=== PATIENT | male | born 1960 | race African-American/Black ===

== ENCOUNTER 2016-07-08 11:53 | Inpatient (IN) | payer OTHER ==
[~2016-07-08] VITALS: Ht 177.8 cm; Wt 89.9 kg
[~2016-07-08 11:53] MED LIST: ACET325T21 PO; ALLO100T PO; ALLO300T PO; AMIO200T2 PO; AMLO5TAB2 PO; ATOR10TA60 PO; CALC-304 PO; CALC200T23 PO; CALC667C6 PO; CALC667T PO; CARV12.52 PO; CEFT400V IV; DARB40DI SQ; DARB60DI SQ; DEXT38GE2 PO; FOLI1TAB16 PO; FURO20TA3 PO; FURO40TA4 PO; GLUC1KIT IM; HYDR-2869 PO; INSU100I13 SQ; INSU100I17 SQ; INSU100V13 SQ; IPRA4AER IH; ISOS40TA11 PO; LACT1CAP24 PO; LACT20SO PO; LEVO25TA4 PO; LISI-338 PO; LOPE2TAB27 PO; MULT-246 PO; OXYC-323 PO; OXYC15TA60 PO; OXYC5CAP3 PO; OXYM30SP NS; PANT40TA3 PO; PHYT5TAB PO; POTA10TA31 PO; SACC250C PO; SIMV10TA3 PO; SODI650T PO; SPIR50TA2 PO; TAMS0.4C2 PO; Vancomycin Hcl PO
--- NOTE | 2016-07-08 12:22 | ACF ---
Admission Forms Criteria GASTROENTEROLOGY GRG Clinical Indications for Admission to Inpatient Care (Place 'X' for any and all applicable criteria): Hospital admission is needed for appropriate care of the patient because of ANY ONE of the following: [ ]I. Hemoperitoneum(7) [X]II. Ascites requiring acute treatment indicated by ANY ONE of the following( 8)(9): [X]a) Hemodynamic instability remaining after emergency or observation level care (as appropriate) [ ]b) Peritoneal signs present (eg, abdominal rigidity, rebound tenderness, absent bowel sounds) [ ]c) Tachypnea, Hypoxemia, or other respiratory symptoms remain after emergency or observation level care (as appropriate) [ ]d) Suspected infected ascites as indicated by ANY ONE of the following: [ ]i) Temperature greater than 100 degrees F (37.8 degrees C) [ ]ii) Abdominal pain or tenderness not relieved by paracentesis [ ]iii) Systemic signs of infection (eg, elevated WBC count, fever) [ ]iv) Ascitic fluid analysis consistent with infection ( eg, elevated WBC count): [ ]v) Vital sign abnormality [ ]III. Suspected acute intra-abdominal process indicated by ANY ONE of the following(1)(2)(3)(4)(5): [ ]a) Hemodynamic instability [ ]b) Peritoneal signs present (eg, abdominal rigidity, rebound tenderness, absent bowel sounds) [ ]c) Bowel obstruction suspected (eg, severe vomiting, abdominal distension) [ ]d) Suspected mesenteric ischemia or ischemic colitis(6) [ ]e) Other signs or symptoms of acute abdominal disease (eg, severe pain, free air): [ ]IV. Severe liver disease indicated by ANY ONE of the following(8)(9)(10)(11)( 12)(13)(14): [ ]a) Acute hepatitis (eg, transaminase level greater than 1000 IU/L) [ ]b) Acute elevation of prothrombin time to more than 50% above normal or INR greater than 1.5 [ ]c) Bilirubin greater than 20 mg/dL (342 micromoles/L) (15) [ ]d) New-onset or worsening hepatic encephalopathy [ ]e) Acute liver necrosis [ ]f) Vomiting or dehydration that is severe of persistent [ ]g) Hemodynamic instability due to liver disease [ ]h) Acute renal failure [ ]i) Hepatic abscess [ ]j) Dehydration that is severe or persistent [ ]k) Hepatic hydrothorax(21) [ ]l) Other indications of severe liver disease (eg, persistent fever , ingestion of hepatotoxin) [ ]V. Severe diarrhea indicated by ANY ONE of the following(17)(18)(19)(20)(21)( 22)(23): [ ]a) High fever or other high-risk infection situation [ ]b) Intractable bloody diarrhea (eg, more than 6 bloody stools per day) [ ]c) Suspected Clostridium difficile-associated diarrhea(24) [ ]d) Change in mental status that persists after emergency or observation level care (as appropriate) [ ]e) Severe dehydration (eg, greater than 9% loss of body weight in children) [ ]f) Inability to maintain hydration [ ]g) Peritoneal signs present (eg, abdominal rigidity, rebound tenderness, absent bowel sounds) [ ]h) Abdominal ischemia suspected(6) [ ]i) Hemodynamic instability that persists after emergency or observation level care (as appropriate) [ ]j) Severe electrolyte abnormalities requiring inpatient care [ ]k) Acute renal failure [ ]. Suspected toxic megacolon(5)(6) [ ]VII.Severe dysphagia indicated by ANY ONE of the following(25)(26): [ ]a) Suspected esophageal perforation or fistula(27) [ ]b) Suspected cause that requires inpatient care (eg, caustic ingestion, severe esophagitis) (28) [ ]c) Severe dehydration (eg, greater than 9% loss of body weight in children) [ ]d) Inability to manage secretions or maintain hydration [ ]e) Hemodynamic instability that persists after emergency or observation level care (as appropriate) [ ]f) Severe electrolyte abnormalities requiring inpatient care [ ]g) Acute renal failure [ ]VIII.Vomiting and ANY ONE of the following (29)(30)(31)(32): [ ]a) High fever or other high-risk infection situation [ ]b) Change in mental status that persists after emergency or observation level care (as appropriate) [ ]c) Severe dehydration (e.g., greater than 9% loss of body weight in children) [ ]d) Peritoneal signs present (e.g., abdominal rigidity, rebound tenderness, absent bowel sounds) [ ]e) Hemodynamic instability that persists after emergency or observation level care (as appropriate) [ ]f) Severe electrolyte abnormalities requiring inpatient care [ ]g) Acute renal failure [ ]h) Bowel obstruction suspected (e.g., severe vomiting, abdominal distension) [ ]i) Vomiting that is severe or persistent after medical treatment [ ]IX. Significant dehydration indicated by ANY ONE of the following(23)(24)(25) [ ]a) Clinical findings of severe dehydration indicated by ANY ONE of the following: [ ]i) Acute loss of weight from baseline (5% of body weight in adults, 9% in pediatric patients) [ ]ii) Hemodynamic instability [ ]iii) Acute renal failure [ ]iv) Serum sodium greater than 150 mEq/L (mmol/L) [ ]b) Dehydration that is persistent indicated by ALL of the following: [ ]i) Oral rehydration therapy not tolerated or insufficient to adequately correct dehydration [ ]ii) Appropriate intravenous treatment (eg, fluids) does not readily correct dehydration hours of (ie, after 12 to 24 of treatment) [ ]X. Gastroparesis and ANY ONE of the following(37)(38)(39): [ ]a) Dehydration that is severe or persistent [ ]b) Severe electrolyte abnormalities requiring inpatient care [ ]c) Acute renal failure [ ]d) Vomiting that is severe or persistent [ ]XI. Complications of transplanted liver indicated by ANY ONE of the following (40)(41): [ ]a) Acute graft rejection requiring inpatient management (eg, intravenous immunosuppression)(42) [ ]b) Failure of transplanted liver as indicated by ANY ONE of the following: [ ]i) Acute hepatitis (eg, transaminase level greater than 1000 International Units per liter (IU/L)) [ ]ii) Acute elevation of prothrombin time to more than 50% above baseline or INR greater than 1.5 [ ]iii) Bilirubin greater than 20 mg/dL (342 micromoles/L) [ ]iv) New-onset or worsening hepatic encephalopathy [ ]v) Acute elevation of serum ammonia level (eg, greater than 210 mcg/dL (150 micromoles/L)) [ ]vi) Acute liver necrosis [ ]c) Infection requiring inpatient management (eg, Hemodynamic instability, need for intravenous antimicrobial treatment)(43)(44)(45)(46)(47)(48)(49)(50) [ ]d) Other complication of transplanted liver (eg, thrombosis, autoimmune hepatitis, variceal bleeding) requiring inpatient management(51)(52) [ ]XII Complications of transplanted pancreas indicated by ANY ONE of the following(53): [ ]a) Acute graft rejection requiring inpatient management (eg, intravenous immunosuppression)(42)(54) [ ]b) Failure of transplanted pancreas as indicated by ANY ONE of the following: [ ]i) Serum amylase greater than 3 times the upper limit of normal or baseline [ ]ii) Serum lipase greater than 3 times the upper limit of normal or baseline [ ]iii) Imaging findings consistent with pancreatic inflammation or necrosis [ ]c) Infection requiring inpatient management (eg, Hemodynamic instability, need for intravenous antimicrobial treatment)(43)(44)(45)(46)(47)(48)(49)(50) [ ]d) Other complication of transplanted liver (eg, thrombosis, autoimmune hepatitis, variceal bleeding) requiring inpatient management(51)(52) [ ]X. Gastroenterology condition and ALL of the following: [ ]a) Symptom or finding for which emergency and observation care have failed or are not considered appropriate (Also use General Criteria: Observation Care as appropriate) [ ]b) Presence of ANY ONE of the following: [ ]i) A General Admission Criteria [ ]ii) A Pediatric General Admission Criteria. The original [facility] [employer] content created by [facility] has been revised. The portions of the content which have been revised are identified through the use of italic text or in bold,and [facility] has neither reviewed nor approved the modified material. All other unmodified content is copyright [facility]. Please see references footnoted in the original [facility] edition 2016 Admission Criteria Met?: Yes BRANDON HUBBARD Jul 08, 2016 12:22
[2016-07-08 12:50] LABS: BASO % 1 % (0-3); EOS % 1 % (0-3); HEMATOCRIT 29.8 % (39.0-53.0); HEMOGLOBIN 9.4 g/dL (13.0-17.5); LYMPH # 1.1 x10^3/uL (1.0-4.8); LYMPH % 21 % (24-48); MEAN CORPUSCULAR HEMOGLOBIN 28 pg (25-35); MEAN CORPUSCULAR HGB CONC 32 g/dL (31-37); MEAN CORPUSCULAR VOLUME 89 fL (79-100); MONO % 12 % (0-9); NEUT % 65 % (31-73); PLATELET COUNT 139 x10^3/uL (140-400); RED BLOOD COUNT 3.35 x10^6/uL (4.30-5.70); RED CELL DISTRIBUTION WIDTH 17.3 % (11.5-14.5)
[2016-07-08] MEDS ORDERED: ONDANSETRON PF 4 MG/2 ML VIAL. IV PRN (13:00)
[2016-07-08 13:01] LABS: ALBUMIN 1.6 g/dL (3.4-5.0); ALBUMIN/GLOBULIN RATIO 0.4 (1.0-1.7); CALCIUM 7.7 mg/dL (8.5-10.1); CREATININE 5.9 mg/dL (0.7-1.3); TOTAL BILIRUBIN 0.4 mg/dL (0.2-1.0)
[2016-07-08 13:03] LABS: INR 1.3 (0.8-1.1); PROTHROMBIN TIME PATIENT 15.8 SEC (11.7-14.0)
[2016-07-08 13:04] LABS: POTASSIUM 2.8 mmol/L (3.5-5.1)
[2016-07-08] MEDS ORDERED: POTASSIUM CHLORIDE 20 MEQ TABLET.ER. PO ONE ×2 (13:15→16:15)
[2016-07-08] MEDS ORDERED: IV NORMAL SALINE 500ML BAG 500 ML IV ONE (13:30)
--- NOTE | 2016-07-08 16:10 | PDOC1 ---
History and Physical Date of Admission Date of Admission DATE: 07/08/16 TIME: 16:01 Identification/Chief Complaint Chief Complaint short of breath Source Source: Chart review, Patient History of Present Illness History of Present Illness return from [facility], worsening abd distention and shortness of breath. Mental status seems more clear than before. He is very cold, no other complaint, new dyspnea Past Medical History Cardiovascular: CHF, HTN, Hyperlipidemia, Other Pulmonary: No pertinent hx CENTRAL NERVOUS SYSTEM: Dementia GI: Other Heme/Onc: Anemia NOS Hepatobiliary: Cirrhosis, Hep A/B/C, Other Psych: Addictions Musculoskeletal: Osteoarthritis Rheumatologic: Gout ENT: No pertinent hx Renal/: Chronic renal failure Endocrine: Diabetes, Hyperparathyroidism Past Surgical History Past Surgical History: Other Family History Family History: No Significant, Family History Unknown Social History Smoke: No ALCOHOL: none Drugs: Cocaine Current Medications Current Medications Current Medications Ondansetron HCl (Zofran) 4 mg PRN Q8HRS PRN IV NAUSEA/VOMITING Last administered on 07/08/16 13:44; Start 07/08/16 at 13:00; Stop 07/09/16 at 12:59 Potassium Chloride 40 meq 40 meq 1X ONCE PO Last administered on 07/08/16 13: 45; Start 07/08/16 at 13:15; Stop 07/08/16 at 13:16; Status DC Sodium Chloride (Iv Sodium Chloride 0.9% 500ml Bag) 500 ml @ 0 mls/hr 1X ONCE IV ; Start 07/08/16 at 13:30; Stop 07/08/16 at 13:31; Status DC Active Scripts Active [Vancomycin Hcl] 125 MG/2.5 ML Solution 125 Mg PO [id number] 14 Days Reported Furosemide 40 Mg Tablet 40 Mg PO DAILY Aranesp Syringe (Darbepoetin Aaron In Polysorbat) 60 Mcg/0.3 Ml Disp.syrin 60 Mcg SQ WEEKLY Mephyton (Phytonadione) 5 Mg Tablet 5 Mg PO DAILY Phoslo (Calcium Acetate) 667 Mg Capsule 2 Cap PO TIDWMEALS Allopurinol 100 Mg Tablet 1 Tab PO DAILY Spironolactone 50 Mg Tablet 50 Mg PO DAILY Oxycontin (Oxycodone HCl) 15 Mg Tab.er.12h 15 Mg PO BID Oxycodone Hcl 5 Mg Capsule 15 Mg PO Q3HRS PRN Oyster Shell Calcium-Vit D Tab (Calcium Carbonate/Vitamin D2) 1 Each Tablet 1 Each PO BID Acidophilus Lactobacillus (Lactobacillus Acidophilus) 1 Each Capsule 1 Each PO DAILY Glucose Gel (Dextrose) 38 Gm Gel..gram. 38 Gm PO PRN PRN Glucagon Emergency Kit (Glucagon,Human Recombinant) 1 Mg Kit 1 Mg IM PRN Acetaminophen 325 Mg Tablet 650 Mg PO PRN Q4HRS PRN Tamsulosin Hcl 0.4 Mg Cap.er.24h 1 Cap PO DAILY Sodium Bicarbonate 650 Mg Tablet 2 Tab PO BID Protonix (Pantoprazole Sodium) 40 Mg Tablet.dr 1 Tab PO BID Multi-Vitamin Daily (Multivitamin) 1 Each Tablet 1 Each PO DAILY Isordil (Isosorbide Dinitrate) 40 Mg Tablet 40 Mg PO TID Combivent Respimat Inhal (Ipratropium/Albuterol Sulfate) 4 Gm Aer.w.adap 1 Inh IH BID Hydralazine Hcl 50 Mg Tablet 1 Tab PO TID wed, wed, wed, sat. Atorvastatin Calcium 10 Mg Tablet 1 Tab PO DAILY Amlodipine Besylate 5 Mg Tablet 5 Mg PO DAILY wed, wed, wed, sat. hold if sbp is less than 110. call dr if sbp is > 170. Amiodarone Hcl 200 Mg Tablet 1 Tab PO DAILY Novolog Flexpen (Insulin Aspart) 100 Unit/1 Ml Insuln.pen 3 Unit SQ TIDAC Folic Acid 1 Mg Tablet 1 Mg PO DAILY Carvedilol 12.5 Mg Tablet 12.5 Mg PO BIDWMEALS wed, wed, wed, sat. hold if sbp is 110. call dr if sbp is > 170. Levothyroxine Sodium 25 Mcg Tablet 75 Mcg PO DAILYAC Allergies Allergies: Coded Allergies: I S O L A T I O N *CONTACT* (Verified Allergy, Unknown, C-DIFF ISOLATION, 06/23/16) No Known Medication Allergies (Verified Allergy, Unknown, 06/24/16) ROS General: YES: Fatigue, Malaise, No: Appetite, Chills, Night Sweats, Other PSYCHOLOGICAL ROS: YES: Irritablity, No: Anxiety, Behavioral Disorder, Concentration difficultie, Decreased libido , Depression, Disorientation, Hallucinations, Hostility, Memory difficulties, Mood Swings, Obsessive thoughts, Other, Physical abuse, Sexual abuse, Sleep disturbances, Suicidal ideation Eyes: No Blurry vision, No Decreased vision, No Double vision, No Dry eyes, No Excessive tearing, No Eye Pain, No Itchy Eyes, No Loss of vision, No Other, No Photophobia, No Scotomata, No Uses contacts, No Uses glasses HEENT: YES: Heacaches, No: Epistaxis, Hearing change, Nasal congestion, Nasal discharge, Oral lesions, Other, Sinus pain, Sneezing, Snoring, Sore Throat, Tinnitus, Vertigo, Visual Changes, Vocal changes ENDOCRINE: No: Breast Changes, Galactorrhea, Hair Pattern Changes, Hot Flashes , Malaise/lethargy, Mood Swings, Other, Palpitations, Polydipsia/polyuria, Skin Changes, Temperature Intolerance, Unexpected Weight Changes Respiratory: No: Cough, Hemoptysis, Orthopnea, Other, Pleuritic Pain, SOB with excertion, Shortness of breath, Sputum Changes, Stridor, Tachypnea, Wheezing Cardiovascular: No Chest Pain, No Edema, No Lt Headedness, No Orthopnea, No Other, No Palpitations, No Paroxysmal Noc. Dyspnea Gastrointestinal: Yes Nausea, No Abdominal Pain, No Constipation, No Diarrhea, No Hematochezia, No Melena, No Other, No Vomiting Genitourinary: No , No , No , No , No , No , No , No Discharge, No Dysuria, No Flank Pain, No Frequency, No Hematuria, No Incontinence, No Other, No Pain, No Retention, No Urgency Musculoskeletal: No Gait Disturbance, No Joint Pain, No Joint Stiffness, No Joint Swelling, No Muscle Pain, No Muscular Weakness, No Other, No Pain In:, No Swelling In: Neurological: No Behavorial Changes, No Bowel/Bladder ControlChng, No Confusion , No Dizziness, No Gait Disturbance, No Headaches, No Impaired Coord/balance, No Memory Loss, No Numbness/Tingling, No Other, No Seizures, No Speech Problems , No Tremors, No Visual Changes, No Weakness Skin: Yes Dry Skin, No Acne, No Eczema, No Hair Changes, No Lumps, No Mole Changes, No Mottling, No Nail Changes, No Other, No Pruritus, No Rash, No Skin Lesion Changes Physical Exam General: Alert, Oriented X3, Cooperative, No acute distress HEENT: Atraumatic, PERRLA, EOMI, Mucous membr. moist/pink, Other ( ) Lungs: Clear to auscultation Heart: S1S2, no murmurs Abdomen: No masses (firm), Other (markedly distended, caput medusae) Rectal Exam: not examined Extremities: No clubbing, Other Skin: No rashes, No significant lesion Neuro: Sensation intact Psych/Mental Status: Mood NL Vitals Vitals Vital Signs Date Time Temp Pulse Resp B/P Pulse Ox O2 Delivery O2 Flow Rate FiO2 07/08/16 15:25 80 16 97/66 97 Room Air Labs Labs Laboratory Tests Test 07/08/16 12:20 White Blood Count 5.0x10^3/uL (4.0-11.0) Red Blood Count 3.35x10^6/uL (4.30-5.70) Hemoglobin 9.4g/dL (13.0-17.5) Hematocrit 29.8% (39.0-53.0) Mean Corpuscular Volume 89fL (79-100) Mean Corpuscular Hemoglobin 28pg (25-35) Mean Corpuscular Hemoglobin Concent 32g/dL (31-37) Red Cell Distribution Width 17.3% (11.5-14.5) Platelet Count 139x10^3/uL (140-400) Neutrophils (%) (Auto) 65% (31-73) Lymphocytes (%) (Auto) 21% (24-48) Monocytes (%) (Auto) 12% (0-9) Eosinophils (%) (Auto) 1% (0-3) Basophils (%) (Auto) 1% (0-3) Neutrophils # (Auto) 3.3x10^3uL (1.8-7.7) Lymphocytes # (Auto) 1.1x10^3/uL (1.0-4.8) Monocytes # (Auto) 0.6x10^3/uL (0.0-1.1) Eosinophils # (Auto) 0.0x10^3/uL (0.0-0.7) Basophils # (Auto) 0.0x10^3/uL (0.0-0.2) Prothrombin Time 15.8SEC (11.7-14.0) Prothromb Time International Ratio 1.3 (0.8-1.1) Sodium Level 142mmol/L (136-145) Potassium Level 2.8mmol/L (3.5-5.1) Chloride Level 105mmol/L (98-107) Carbon Dioxide Level 24mmol/L (21-32) Anion Gap 13 (6-14) Blood Urea Nitrogen 32mg/dL (8-26) Creatinine 5.9mg/dL (0.7-1.3) Estimated GFR (Cockcroft-Gault) 12.0 BUN/Creatinine Ratio 5 (6-20) Glucose Level 259mg/dL (70-99) Lactic Acid Level 2.3mmol/L (0.4-2.0) Calcium Level 7.7mg/dL (8.5-10.1) Total Bilirubin 0.4mg/dL (0.2-1.0) Aspartate Amino Transf (AST/SGOT) 21U/L (15-37) Alanine Aminotransferase (ALT/SGPT) 15U/L (16-63) Alkaline Phosphatase 222U/L (46-116) TB-Kke-B-Type Natriuretic Peptide 54083dp/mL (0-124) Total Protein 6.0g/dL (6.4-8.2) Albumin 1.6g/dL (3.4-5.0) Albumin/Globulin Ratio 0.4 (1.0-1.7) Triglycerides Level 58mg/dL (0-150) Laboratory Tests Test 07/08/16 12:20 White Blood Count 5.0x10^3/uL (4.0-11.0) Red Blood Count 3.35x10^6/uL (4.30-5.70) Hemoglobin 9.4g/dL (13.0-17.5) Hematocrit 29.8% (39.0-53.0) Mean Corpuscular Volume 89fL (79-100) Mean Corpuscular Hemoglobin 28pg (25-35) Mean Corpuscular Hemoglobin Concent 32g/dL (31-37) Red Cell Distribution Width 17.3% (11.5-14.5) Platelet Count 139x10^3/uL (140-400) Neutrophils (%) (Auto) 65% (31-73) Lymphocytes (%) (Auto) 21% (24-48) Monocytes (%) (Auto) 12% (0-9) Eosinophils (%) (Auto) 1% (0-3) Basophils (%) (Auto) 1% (0-3) Neutrophils # (Auto) 3.3x10^3uL (1.8-7.7) Lymphocytes # (Auto) 1.1x10^3/uL (1.0-4.8) Monocytes # (Auto) 0.6x10^3/uL (0.0-1.1) Eosinophils # (Auto) 0.0x10^3/uL (0.0-0.7) Basophils # (Auto) 0.0x10^3/uL (0.0-0.2) Prothrombin Time 15.8SEC (11.7-14.0) Prothromb Time International Ratio 1.3 (0.8-1.1) Sodium Level 142mmol/L (136-145) Potassium Level 2.8mmol/L (3.5-5.1) Chloride Level 105mmol/L (98-107) Carbon Dioxide Level 24mmol/L (21-32) Anion Gap 13 (6-14) Blood Urea Nitrogen 32mg/dL (8-26) Creatinine 5.9mg/dL (0.7-1.3) Estimated GFR (Cockcroft-Gault) 12.0 BUN/Creatinine Ratio 5 (6-20) Glucose Level 259mg/dL (70-99) Lactic Acid Level 2.3mmol/L (0.4-2.0) Calcium Level 7.7mg/dL (8.5-10.1) Total Bilirubin 0.4mg/dL (0.2-1.0) Aspartate Amino Transf (AST/SGOT) 21U/L (15-37) Alanine Aminotransferase (ALT/SGPT) 15U/L (16-63) Alkaline Phosphatase 222U/L (46-116) KU-Bge-Y-Type Natriuretic Peptide 62620vn/mL (0-124) Total Protein 6.0g/dL (6.4-8.2) Albumin 1.6g/dL (3.4-5.0) Albumin/Globulin Ratio 0.4 (1.0-1.7) Triglycerides Level 58mg/dL (0-150) VTE Prophylaxis Ordered VTE Prophylaxis Devices: No VTE Pharmacological Prophylaxi: Yes Assessment/Plan Assessment/Plan Cirrhotic liver disease w/ recurrent ascites consult GI IR for paracentitis. eval for SB weakness and lethargy CHF, acute on chronic systolic anemia of CKD, ESRD, due for HD severe malnutrition admit HECTOR CASTRO MD Jul 08, 2016 16:10
[2016-07-08] MEDS ORDERED: DEXTROSE 50% 25 GM / 50ML DISP.SYRIN. IV PRN (16:15)
--- NOTE | 2016-07-08 16:21 | PDOC ---
Provider Note Provider Note IR Note: Ant is 56 YO male with cirrhosis and recurrent, massive,symptomatic ascites , well known to me s/p prior image guided paracentesis procedures. His is scheduled for repeat Tx paracentesis tomorrow, with cell count and culture to exclude SBP. K+ replacement ongoing. INR satisfactory. O2 sat 97% room air. NPO p MN. KYM FUNK MD Jul 08, 2016 16:21
--- NOTE | 2016-07-08 16:37 | PHYS DOC ---
Past Medical History Past Medical History: Anemia, CHF, Diabetes-Type II, High Cholesterol, Hypertension, Renal Failure Additional Past Medical Histor: Cirrhosis liver, gout, cardiomyopathy, hx drug and Etoh use Past Surgical History: Other Additional Past Surgical Histo: Rt chest dialysis shunt Alcohol Use: Sober Drug Use: Cocaine, Marijuana Adult General Chief Complaint Chief Complaint: GI PROBLEM HPI HPI 56-year-old male with multiple medical problems including cirrhosis and cardiomyopathy who appears much older than his stated age presents with worsening shortness of breath and increased abdominal distention. He denies any fever but he states that he has been chilled. He states he feels profoundly weak and is really unable to do much of anything. He states his last dialysis treatment was on Wednesday. He does state that any activity causes severe shortness of breath. [] Review of Systems Review of Systems Constitutional: Denies fever or chills [] Eyes: Denies change in visual acuity, redness, or eye pain [] HENT: Denies nasal congestion or sore throat [] Respiratory: Shortness of breath and dyspnea on exertion] Cardiovascular: No additional information not addressed in HPI [] GI: Abdominal distention [] : Denies dysuria or hematuria [] Musculoskeletal: Denies back pain or joint pain [] Integument: Denies rash or skin lesions [] Neurologic: Denies headache, focal weakness or sensory changes [] Endocrine: Denies polyuria or polydipsia [] Current Medications Current Medications Current Medications Medications (Trade) Dose Ordered Sig/Madi Start Time Stop Time Status Last Admin Dose Admin Ondansetron HCl (Zofran) 4 mg PRN Q8HRS PRN 07/08/16 13:00 07/09/16 12:59 07/08/16 13:44 4 MG Allergies Allergies Allergies Coded Allergies Type Severity Reaction Last Updated Verified I S O L A T I O N *CONTACT* Allergy Unknown C-DIFF ISOLATION 06/23/16 Yes No Known Medication Allergies Allergy Unknown 06/24/16 Yes Physical Exam Physical Exam Constitutional: Well developed, well nourished, no acute distress, non-toxic appearance. [] HENT: Normocephalic, atraumatic, bilateral external ears normal, oropharynx moist, no oral exudates, nose normal. [] Eyes: PERRLA, EOMI, conjunctiva normal, no discharge. [] Neck: Normal range of motion, no tenderness, supple, no stridor. [] Cardiovascular:Heart rate regular rhythm, no murmur [] Lungs & Thorax: Bilateral breath sounds clear to auscultation [] Abdomen: Bowel sounds normal, soft, no tenderness, no masses, no pulsatile masses. [] Skin: Warm, dry, no erythema, no rash. [] Back: No tenderness, no CVA tenderness. [] Extremities: No tenderness, no cyanosis, no clubbing, ROM intact, no edema. [] Neurologic: Alert and oriented X 3, normal motor function, normal sensory function, no focal deficits noted. [] Psychologic: Affect normal, judgement normal, mood normal. [] Current Patient Data Vital Signs Vital Signs Date Time Temp Pulse Resp B/P Pulse Ox O2 Delivery O2 Flow Rate FiO2 07/08/16 13:00 78 15 89/61 97 Room Air Lab Values Laboratory Tests Test 07/08/16 12:20 White Blood Count 5.0x10^3/uL (4.0-11.0) Red Blood Count 3.35x10^6/uL (4.30-5.70) L Hemoglobin 9.4g/dL (13.0-17.5) L Hematocrit 29.8% (39.0-53.0) L Mean Corpuscular Volume 89fL (79-100) Mean Corpuscular Hemoglobin 28pg (25-35) Mean Corpuscular Hemoglobin Concent 32g/dL (31-37) Red Cell Distribution Width 17.3% (11.5-14.5) H Platelet Count 139x10^3/uL (140-400) #L Neutrophils (%) (Auto) 65% (31-73) Lymphocytes (%) (Auto) 21% (24-48) L Monocytes (%) (Auto) 12% (0-9) H Eosinophils (%) (Auto) 1% (0-3) Basophils (%) (Auto) 1% (0-3) Neutrophils # (Auto) 3.3x10^3uL (1.8-7.7) Lymphocytes # (Auto) 1.1x10^3/uL (1.0-4.8) Monocytes # (Auto) 0.6x10^3/uL (0.0-1.1) Eosinophils # (Auto) 0.0x10^3/uL (0.0-0.7) Basophils # (Auto) 0.0x10^3/uL (0.0-0.2) Prothrombin Time 15.8SEC (11.7-14.0) H Prothrombin Time INR 1.3 (0.8-1.1) H Sodium Level 142mmol/L (136-145) Potassium Level 2.8mmol/L (3.5-5.1) *L Chloride Level 105mmol/L (98-107) Carbon Dioxide Level 24mmol/L (21-32) Anion Gap 13 (6-14) Blood Urea Nitrogen 32mg/dL (8-26) H Creatinine 5.9mg/dL (0.7-1.3) H Estimated GFR (Cockcroft-Gault) 12.0 BUN/Creatinine Ratio 5 (6-20) L Glucose Level 259mg/dL (70-99) H Lactic Acid Level 2.3mmol/L (0.4-2.0) H Calcium Level 7.7mg/dL (8.5-10.1) L Total Bilirubin 0.4mg/dL (0.2-1.0) Aspartate Amino Transferase (AST) 21U/L (15-37) Alanine Aminotransferase (ALT) 15U/L (16-63) L Alkaline Phosphatase 222U/L (46-116) H OO-Djq-D-Type Natriuretic Peptide 23923pc/mL (0-124) H Total Protein 6.0g/dL (6.4-8.2) L Albumin 1.6g/dL (3.4-5.0) L Albumin/Globulin Ratio 0.4 (1.0-1.7) L Triglycerides Level 58mg/dL (0-150) Laboratory Tests 07/08/16 12:20 Laboratory Tests 07/08/16 12:20 EKG EKG [] Radiology/Procedures Radiology/Procedures [] Course & Med Decision Making Course & Med Decision Making Pertinent Labs and Imaging studies reviewed. (See chart for details) [ED course: Evaluation reveals a 56-year-old male with multiple chronic issues. His abdomen is much more distended today than it typically is. He states usually when this happens there is fluid in his abdomen and he needs paracentesis. I did order an ultrasound-guided paracentesis. I feel like this is the cause of his shortness of breath. He will be due for dialysis. I spoke with Dr. bertrand who agreed to accept the patient for admission. We will also consult nephrology.] Bhanu Disclaimer Dragon Disclaimer This electronic medical record was generated, in whole or in part, using a voice recognition dictation system. Departure Departure Impression: Primary Impression: Ascites Disposition: ADMITTED INPATIENT Condition: STABLE Referrals: ELIZABETH COMER MD (PCP) Problem Qualifiers Primary Impression: Ascites Ascites type: other type Qualified Code: R18.8 - Other ascites FABY COMER DO Jul 08, 2016 16:37
[2016-07-08 17:29] VITALS: BP 97/66
[2016-07-08] MEDS: AMLODIPINE BESYLATE 5 MG TABLET PO SCH (18:09)
[2016-07-08] MEDS: INSULIN ASPART 300 UNITS/3 ML INSULN.PEN SQ SCH (18:19)
[2016-07-08 19:00] VITALS: BP 88/65
[2016-07-08 22:31] VITALS: BP 98/65
[2016-07-09] VITALS (9 sets, daily range): BP systolic 88–109; BP diastolic 61–71
[2016-07-09 06:33] LABS: BASO # 0.1 x10^3/uL (0.0-0.2); BASO % 1 % (0-3); EOS % 2 % (0-3); HEMATOCRIT 29.5 % (39.0-53.0); HEMOGLOBIN 9.2 g/dL (13.0-17.5); LYMPH # 1.4 x10^3/uL (1.0-4.8); LYMPH % 24 % (24-48); MEAN CORPUSCULAR HEMOGLOBIN 28 pg (25-35); MEAN CORPUSCULAR HGB CONC 31 g/dL (31-37); MEAN CORPUSCULAR VOLUME 90 fL (79-100); MONO % 11 % (0-9); NEUT % 61 % (31-73); PLATELET COUNT 136 x10^3/uL (140-400); RED CELL DISTRIBUTION WIDTH 17.5 % (11.5-14.5); WHITE BLOOD COUNT 5.9 x10^3/uL (4.0-11.0)
[2016-07-09 06:54] LABS: CALCIUM 7.3 mg/dL (8.5-10.1); CREATININE 6.5 mg/dL (0.7-1.3); GFR 10.7; POTASSIUM 3.4 mmol/L (3.5-5.1)
[2016-07-09] MEDS: INSULIN ASPART 300 UNITS/3 ML INSULN.PEN SQ SCH ×3 (08:00→18:30)
[2016-07-09] MEDS: AMLODIPINE BESYLATE 5 MG TABLET PO SCH (09:00)
--- NOTE | 2016-07-09 09:32 | PDOC2 ---
CARDIAC CONSULT DATE OF CONSULT Date of Consult DATE: 07/09/16 TIME: 09:29 REASON FOR CONSULT Reason for Consult: CHF ESRD REFERRING PHYSICIAN Referring Physician: Dr. Romeo SOURCE Source: Chart review, Patient HISTORY OF PRESENT ILLNESS HISTORY OF PRESENT ILLNESS This is a 56 yo male, with a cardiac history significant for CHF, HTN, and HLP, who presented with worsening abdominal distention and increasing shortness of breath. Is somewhat of a poor historian. Reports symptoms have been ongoing over the last couple of months but have progressively worsened. Resides at [facility]. Denies any CP, palpitations, dizziness, diaphoresis, or n/v. Does report ongoing orthopnea. Patient has a history of ascites due to hepatitis C and ETOH related liver cirrhosis with previous paracentesis. Is ESRD on HD. PAST MEDICAL HISTORY Cardiovascular: CHF, HTN, Hyperlipidemia Pulmonary: COPD CENTRAL NERVOUS SYSTEM: Dementia GI: Other (pancreatitis) Heme/Onc: Anemia NOS Hepatobiliary: Cirrhosis, Hep A/B/C (C) Musculoskeletal: Osteoarthritis Rheumatologic: Gout Infectious disease: No pertinent hx ENT: No pertinent hx Renal/: Chronic renal failure (on HD) Endocrine: Diabetes, Hypothyroidism Dermatology: No pertinent hx PAST SURGICAL HISTORY Past Surgical History: Other, No pertinent history FAMILY HISTORY Family History: Other (non-contributory) SOCIAL HISTORY Smoke: <1 pack per day ALCOHOL: none (previous) Drugs: Cocaine Lives: Residential CURRENT MEDICATIONS CURRENT MEDICATIONS Current Medications Medications (Trade) Dose Ordered Sig/Mdai Route PRN Reason Start Time Stop Time Status Last Admin Dose Admin Ondansetron HCl (Zofran) 4 mg PRN Q8HRS PRN IV NAUSEA/VOMITING 07/08/16 13:00 07/09/16 12:59 07/08/16 13:44 Potassium Chloride 40 meq 40 meq 1X ONCE PO 07/08/16 13:15 07/08/16 13:16 DC 07/08/16 13:45 Sodium Chloride (Iv Sodium Chloride 0.9% 500ml Bag) 500 ml @ 0 mls/hr 1X ONCE IV 07/08/16 13:30 07/08/16 13:31 DC 07/08/16 18:10 Potassium Chloride (Klor-Con) 20 meq 1X ONCE PO 07/08/16 16:15 07/08/16 16:16 DC 07/08/16 18:08 Insulin Aspart (Novolog) 0-7 UNITS TIDWMEALS SQ 1/11/17 17:00 07/08/16 18:19 Amlodipine Besylate (Norvasc) 5 mg DAILY PO 07/08/16 17:00 07/08/16 18:09 ALLERGIES ALLERGIES: Coded Allergies: I S O L A T I O N *CONTACT* (Verified Allergy, Unknown, C-DIFF ISOLATION, 06/23/16) No Known Medication Allergies (Verified Allergy, Unknown, 06/24/16) ROS Review of System 14 point ROS conducted with pertinent positives noted above in HPI, although limited as her is uncooperative/poor historian PHYSICAL EXAM General: Alert, Oriented X3, mild distress, Other (poor dentition ) Lungs: Other (bases diminished ) Heart: Regular rate, Normal S1, Normal S2 Abdomen: Other (firm distended ) Extremities: Other (trace bi LE edmea, diminished DP pulses ) Skin: No breakdown, No significant lesion Neuro: Normal speech, Sensation intact Psych/Mental Status: Other (flat affect ) MUSCULOSKELETAL: Osteoarthritic changes both hands VITALS VITALS Vital Signs Date Time Temp Pulse Resp B/P Pulse Ox O2 Delivery O2 Flow Rate FiO2 07/09/16 07:00 98.2 83 18 92/61 97 Room Air 98.2 LABS Lab: Laboratory Tests Test 07/08/16 12:20 07/09/16 05:35 07/09/16 08:52 White Blood Count 5.0x10^3/uL (4.0-11.0) 5.9x10^3/uL (4.0-11.0) Red Blood Count 3.35x10^6/uL (4.30-5.70) 3.30x10^6/uL (4.30-5.70) Hemoglobin 9.4g/dL (13.0-17.5) 9.2g/dL (13.0-17.5) Hematocrit 29.8% (39.0-53.0) 29.5% (39.0-53.0) Mean Corpuscular Volume 89fL (79-100) 90fL (79-100) Mean Corpuscular Hemoglobin 28pg (25-35) 28pg (25-35) Mean Corpuscular Hemoglobin Concent 32g/dL (31-37) 31g/dL (31-37) Red Cell Distribution Width 17.3% (11.5-14.5) 17.5% (11.5-14.5) Platelet Count 139x10^3/uL (140-400) 136x10^3/uL (140-400) Neutrophils (%) (Auto) 65% (31-73) 61% (31-73) Lymphocytes (%) (Auto) 21% (24-48) 24% (24-48) Monocytes (%) (Auto) 12% (0-9) 11% (0-9) Eosinophils (%) (Auto) 1% (0-3) 2% (0-3) Basophils (%) (Auto) 1% (0-3) 1% (0-3) Neutrophils # (Auto) 3.3x10^3uL (1.8-7.7) 3.6x10^3uL (1.8-7.7) Lymphocytes # (Auto) 1.1x10^3/uL (1.0-4.8) 1.4x10^3/uL (1.0-4.8) Monocytes # (Auto) 0.6x10^3/uL (0.0-1.1) 0.7x10^3/uL (0.0-1.1) Eosinophils # (Auto) 0.0x10^3/uL (0.0-0.7) 0.1x10^3/uL (0.0-0.7) Basophils # (Auto) 0.0x10^3/uL (0.0-0.2) 0.1x10^3/uL (0.0-0.2) Prothrombin Time 15.8SEC (11.7-14.0) Prothromb Time International Ratio 1.3 (0.8-1.1) Sodium Level 142mmol/L (136-145) 140mmol/L (136-145) Potassium Level 2.8mmol/L (3.5-5.1) 3.4mmol/L (3.5-5.1) Chloride Level 105mmol/L (98-107) 106mmol/L (98-107) Carbon Dioxide Level 24mmol/L (21-32) 24mmol/L (21-32) Anion Gap 13 (6-14) 10 (6-14) Blood Urea Nitrogen 32mg/dL (8-26) 35mg/dL (8-26) Creatinine 5.9mg/dL (0.7-1.3) 6.5mg/dL (0.7-1.3) Estimated GFR (Cockcroft-Gault) 12.0 10.7 BUN/Creatinine Ratio 5 (6-20) Glucose Level 259mg/dL (70-99) 112mg/dL (70-99) Lactic Acid Level 2.3mmol/L (0.4-2.0) Calcium Level 7.7mg/dL (8.5-10.1) 7.3mg/dL (8.5-10.1) Total Bilirubin 0.4mg/dL (0.2-1.0) Aspartate Amino Transf (AST/SGOT) 21U/L (15-37) Alanine Aminotransferase (ALT/SGPT) 15U/L (16-63) Alkaline Phosphatase 222U/L (46-116) LG-Pgq-A-Type Natriuretic Peptide 97300dp/mL (0-124) Total Protein 6.0g/dL (6.4-8.2) Albumin 1.6g/dL (3.4-5.0) Albumin/Globulin Ratio 0.4 (1.0-1.7) Triglycerides Level 58mg/dL (0-150) Glucose (Fingerstick) 86mg/dL (70-99) ECHOCARDIOGRAM ECHOCARDIOGRAM <Conclusion> The left ventricle is normal size. The left ventricular systolic function is normal and the ejection fraction is within normal range. The Ejection Fraction is 60-65%. There is moderate concentric left ventricular hypertrophy. There is no significant aortic valvular stenosis. Doppler and Color Flow revealed no significant aortic regurgitation. Doppler and Color-flow revealed trace mitral regurgitation. Doppler and Color Flow revealed no tricuspid valve regurgitation noted. There is a trace circumferential pericardial effusion with no hemodynamic significance. DATE: 05/08/16 1037 ASSESSMENT/PLAN ASSESSMENT/PLAN 1. Acute on chronic diastolic heart failure in the setting of liver cirrhosis with significant ascites and ESRD NT Pro BNP elevation recent echo with preserved LV function; EF 60-65%. continue optimization therapy fluid offload in HD per nephrology. 2. ETOH cirrhosis with Hep C recurrent ascites with h/o paracentesis plan for paracentesis today in IR GI following 3. ESRD on HD per renal 4. Hypertension low-normotensive. Continue with current therapy 5. Hyperlipidemia statin therapy. Problems: MIKE WILLIS APRN Jul 09, 2016 09:32
--- NOTE | 2016-07-09 10:01 | PDOC2 ---
GI CONSULT Reason For Consult: Cirrhosis, ESLD HPI: HPI: History from chart/staff. 56 y/o male well-known to us. H/o being uncooperative w/ staff. H/o cirrhosis 2/2 Hep C and alcohol w/ ascites and previous paracentesis. On this occasion (per chart), he was brought to ER from his living facility for SOA and worsening abd distention. Labs as below. Cardiology consulted for CHF (BNP>33,000), nephrology consulted for ESRD on HD, paracentesis planned for today. As usual, not much history from patient. He mostly speaks over me about issues unrelated to admission and doesn't answer my questions. Per staff, he is displeased with many things (including not being covered with blankets the way he likes). He vaguely describes diarrhea (not much per staff) but denies bleeding. PMH: PMH: per chart - ESRD on dialysis, HTN, DM, COPD, hyperparathyroidism, pancreatitis, C Diff, CHF, Hep C, cirrhosis, I&D, heart surgery, previous EGD and colonoscopy at (records requested many times, never received) FH: Family History: No pertinent hx Social History: Smoke: No ALCOHOL: other (previously heavy) Drugs: Cocaine ROS: Difficult to obtain, pt uncooperative. RESP: +SOA GI: Per HPI VItals: Vitals: Vital Signs Date Time Temp Pulse Resp B/P Pulse Ox O2 Delivery O2 Flow Rate FiO2 07/09/16 07:00 98.2 83 18 92/61 97 Room Air 98.2 Labs: Labs: Laboratory Tests Test 07/08/16 12:20 07/09/16 05:35 07/09/16 08:52 White Blood Count 5.0x10^3/uL (4.0-11.0) 5.9x10^3/uL (4.0-11.0) Red Blood Count 3.35x10^6/uL (4.30-5.70) 3.30x10^6/uL (4.30-5.70) Hemoglobin 9.4g/dL (13.0-17.5) 9.2g/dL (13.0-17.5) Hematocrit 29.8% (39.0-53.0) 29.5% (39.0-53.0) Mean Corpuscular Volume 89fL (79-100) 90fL (79-100) Mean Corpuscular Hemoglobin 28pg (25-35) 28pg (25-35) Mean Corpuscular Hemoglobin Concent 32g/dL (31-37) 31g/dL (31-37) Red Cell Distribution Width 17.3% (11.5-14.5) 17.5% (11.5-14.5) Platelet Count 139x10^3/uL (140-400) 136x10^3/uL (140-400) Neutrophils (%) (Auto) 65% (31-73) 61% (31-73) Lymphocytes (%) (Auto) 21% (24-48) 24% (24-48) Monocytes (%) (Auto) 12% (0-9) 11% (0-9) Eosinophils (%) (Auto) 1% (0-3) 2% (0-3) Basophils (%) (Auto) 1% (0-3) 1% (0-3) Neutrophils # (Auto) 3.3x10^3uL (1.8-7.7) 3.6x10^3uL (1.8-7.7) Lymphocytes # (Auto) 1.1x10^3/uL (1.0-4.8) 1.4x10^3/uL (1.0-4.8) Monocytes # (Auto) 0.6x10^3/uL (0.0-1.1) 0.7x10^3/uL (0.0-1.1) Eosinophils # (Auto) 0.0x10^3/uL (0.0-0.7) 0.1x10^3/uL (0.0-0.7) Basophils # (Auto) 0.0x10^3/uL (0.0-0.2) 0.1x10^3/uL (0.0-0.2) Prothrombin Time 15.8SEC (11.7-14.0) Prothromb Time International Ratio 1.3 (0.8-1.1) Sodium Level 142mmol/L (136-145) 140mmol/L (136-145) Potassium Level 2.8mmol/L (3.5-5.1) 3.4mmol/L (3.5-5.1) Chloride Level 105mmol/L (98-107) 106mmol/L (98-107) Carbon Dioxide Level 24mmol/L (21-32) 24mmol/L (21-32) Anion Gap 13 (6-14) 10 (6-14) Blood Urea Nitrogen 32mg/dL (8-26) 35mg/dL (8-26) Creatinine 5.9mg/dL (0.7-1.3) 6.5mg/dL (0.7-1.3) Estimated GFR (Cockcroft-Gault) 12.0 10.7 BUN/Creatinine Ratio 5 (6-20) Glucose Level 259mg/dL (70-99) 112mg/dL (70-99) Lactic Acid Level 2.3mmol/L (0.4-2.0) Calcium Level 7.7mg/dL (8.5-10.1) 7.3mg/dL (8.5-10.1) Total Bilirubin 0.4mg/dL (0.2-1.0) Aspartate Amino Transf (AST/SGOT) 21U/L (15-37) Alanine Aminotransferase (ALT/SGPT) 15U/L (16-63) Alkaline Phosphatase 222U/L (46-116) SW-Rlb-B-Type Natriuretic Peptide 78942ya/mL (0-124) Total Protein 6.0g/dL (6.4-8.2) Albumin 1.6g/dL (3.4-5.0) Albumin/Globulin Ratio 0.4 (1.0-1.7) Triglycerides Level 58mg/dL (0-150) Glucose (Fingerstick) 86mg/dL (70-99) Allergies: Coded Allergies: I S O L A T I O N *CONTACT* (Verified Allergy, Unknown, C-DIFF ISOLATION, 06/23/16) No Known Medication Allergies (Verified Allergy, Unknown, 06/24/16) Medications: Current Medications Medications (Trade) Dose Ordered Sig/Madi Route PRN Reason Start Time Stop Time Status Last Admin Dose Admin Ondansetron HCl (Zofran) 4 mg PRN Q8HRS PRN IV NAUSEA/VOMITING 07/08/16 13:00 07/09/16 12:59 07/08/16 13:44 Potassium Chloride 40 meq 40 meq 1X ONCE PO 07/08/16 13:15 07/08/16 13:16 DC 07/08/16 13:45 Sodium Chloride (Iv Sodium Chloride 0.9% 500ml Bag) 500 ml @ 0 mls/hr 1X ONCE IV 07/08/16 13:30 07/08/16 13:31 DC 07/08/16 18:10 Potassium Chloride (Klor-Con) 20 meq 1X ONCE PO 07/08/16 16:15 07/08/16 16:16 DC 07/08/16 18:08 Insulin Aspart (Novolog) 0-7 UNITS TIDWMEALS SQ 07/08/16 17:00 07/08/16 18:19 Amlodipine Besylate (Norvasc) 5 mg DAILY PO 07/08/16 17:00 07/08/16 18:09 Imaging: Imaging: Reviewed previous. PE: GEN: NAD HEENT: Atraumatic LUNGS: decreased anteriorly, poor effort HEART: S1S2 ABD: distended, tight, ascites, seems non-tender (exam limited) NEURO/PSYCH: A & O 3 A/P: A/P: Cirrhosis, recurrent ascites/paracentesis -Hep C, alcohol -paracentesis scheduled for today ESRD on HD CHF H/o C Diff CRC screen -reports previous 'scopes at [facility] -- Agree w/ paracentesis. SARAVANAN KEARNEY Jul 09, 2016 10:01
[2016-07-09] MEDS ORDERED: LIDOCAINE 1% / SOD BICARB 8.4% 20 ML VIAL. IJ ONE ×2 (10:12→10:45)
[2016-07-09] MEDS ORDERED: MIDAZOLAM HCL 2 MG/2 ML VIAL. ONE (10:12)
[2016-07-09] MEDS ORDERED: FENTANYL PF 100 MCG/2 ML VIAL. ONE (10:12)
[2016-07-09] MEDS ORDERED: ALBUMIN HUMAN 25% 100 ML IV ONE ×3 (10:21→11:00)
--- NOTE | 2016-07-09 10:30 | PDOC ---
MODERATE SEDATION ASSESSMENT RISKS/ALTERNATIVES Risks/Alternatives Risks and alternatives of this type of sedation and procedure discussed with: RISK/ALTERNATIVES: Patient H & P ON CHART H & P H & P on chart and reviewed for co-morbid conditions and appropriate labs. H&P ON CHART: Yes STATUS PREG STATUS ASSESSED: N/A MEDS/ALLERGIES REVIEWED Meds/Allergies Reviewed Medications and Allergies including time and route of recently administered narcotics and sedatives. MEDS/ALLERGIES REVIEWED: Yes ASA RATING ASA RATING: III AIRWAY ASSESSMENT Airway Assessment Airway patency, oral function limitations, presence of caps, crowns, dentures, partials, and ability to extend neck assessed. AIRWAY ASSESSMENT: Yes MALLAMPATI SCORE MALLAMPATI SCORE: II PRE-SEDATION ASSESSMENT PRE-SEDATION ASSESSMENT: Yes KYM FUNK MD Jul 09, 2016 10:29
--- NOTE | 2016-07-09 10:32 | PDOC ---
Exam Plant Guide Plant Guide Dennis Bit Shaver Bit Shaver Merlene Hinson Pre-Procedure Diagnosis Pre-Procedure Diagnosis 56 YO male with cirrhosis, Hep C, ESRD, CHF, and recurrent, symptomatic, massive ascites Post-Procedure Diagnosis Post-Procedure Diagnosis Same Procedure Performed Procedure Performed Sono guided large volume paracentesis Type of Anesthesia Type of Anesthesia Local + Mod sedation Estimated Blood Loss EBL: Trace Specimens Specimans 10,300 cc straw-clear ascites removed---samples to lab for cell count and culture Condition of Patient Condition of Patient Stable. No apparent complication. Infusion of 50 grams 25% albumin was initiated during paracentesis procedure. Disposition Disposition From IR return to [facility]. F/u with HIMS and GI. Ful report to follow. KYM FUNK MD Jul 09, 2016 10:32
[2016-07-09] MEDS ORDERED: MIDAZOLAM HCL 2 MG/2 ML VIAL. IV ONE (10:45)
[2016-07-09] MEDS ORDERED: FENTANYL PF 100 MCG/2 ML VIAL. IV ONE (10:45)
--- NOTE | 2016-07-09 11:29 | PDOC3 ---
Discharge Summary Visit Information Date of Admission: Jul 08, 2016 Date of Discharge: Jul 09, 2016 Admitting Diagnosis: ascites Final Diagnosis ESRD on dialysis, HTN, DM, COPD, hyperparathyroidism, pancreatitis, C Diff, CHF , Hep C, cirrhosis, FH: Problems Medical Problems: (1) Ascites Status: Acute Brief Hospital Course Allergies Allergies Coded Allergies Type Severity Reaction Last Updated Verified I S O L A T I O N *CONTACT* Allergy Unknown C-DIFF ISOLATION 06/23/16 Yes No Known Medication Allergies Allergy Unknown 06/24/16 Yes Vital Signs Vital Signs Date Time Temp Pulse Resp B/P Pulse Ox O2 Delivery O2 Flow Rate FiO2 07/09/16 11:01 74 14 100 Nasal Cannula 2.0 07/09/16 07:00 98.2 92/61 98.2 Lab Results Laboratory Tests Test 07/08/16 12:20 07/08/16 16:58 07/09/16 05:35 07/09/16 08:52 White Blood Count 5.0x10^3/uL (4.0-11.0) 5.9x10^3/uL (4.0-11.0) Red Blood Count 3.35x10^6/uL (4.30-5.70) 3.30x10^6/uL (4.30-5.70) Hemoglobin 9.4g/dL (13.0-17.5) 9.2g/dL (13.0-17.5) Hematocrit 29.8% (39.0-53.0) 29.5% (39.0-53.0) Mean Corpuscular Volume 89fL (79-100) 90fL (79-100) Mean Corpuscular Hemoglobin 28pg (25-35) 28pg (25-35) Mean Corpuscular Hemoglobin Concent 32g/dL (31-37) 31g/dL (31-37) Red Cell Distribution Width 17.3% (11.5-14.5) 17.5% (11.5-14.5) Platelet Count 139x10^3/uL (140-400) 136x10^3/uL (140-400) Neutrophils (%) (Auto) 65% (31-73) 61% (31-73) Lymphocytes (%) (Auto) 21% (24-48) 24% (24-48) Monocytes (%) (Auto) 12% (0-9) 11% (0-9) Eosinophils (%) (Auto) 1% (0-3) 2% (0-3) Basophils (%) (Auto) 1% (0-3) 1% (0-3) Neutrophils # (Auto) 3.3x10^3uL (1.8-7.7) 3.6x10^3uL (1.8-7.7) Lymphocytes # (Auto) 1.1x10^3/uL (1.0-4.8) 1.4x10^3/uL (1.0-4.8) Monocytes # (Auto) 0.6x10^3/uL (0.0-1.1) 0.7x10^3/uL (0.0-1.1) Eosinophils # (Auto) 0.0x10^3/uL (0.0-0.7) 0.1x10^3/uL (0.0-0.7) Basophils # (Auto) 0.0x10^3/uL (0.0-0.2) 0.1x10^3/uL (0.0-0.2) Prothrombin Time 15.8SEC (11.7-14.0) Prothromb Time International Ratio 1.3 (0.8-1.1) Sodium Level 142mmol/L (136-145) 140mmol/L (136-145) Potassium Level 2.8mmol/L (3.5-5.1) 3.4mmol/L (3.5-5.1) Chloride Level 105mmol/L (98-107) 106mmol/L (98-107) Carbon Dioxide Level 24mmol/L (21-32) 24mmol/L (21-32) Anion Gap 13 (6-14) 10 (6-14) Blood Urea Nitrogen 32mg/dL (8-26) 35mg/dL (8-26) Creatinine 5.9mg/dL (0.7-1.3) 6.5mg/dL (0.7-1.3) Estimated GFR (Cockcroft-Gault) 12.0 10.7 BUN/Creatinine Ratio 5 (6-20) Glucose Level 259mg/dL (70-99) 112mg/dL (70-99) Lactic Acid Level 2.3mmol/L (0.4-2.0) Calcium Level 7.7mg/dL (8.5-10.1) 7.3mg/dL (8.5-10.1) Total Bilirubin 0.4mg/dL (0.2-1.0) Aspartate Amino Transf (AST/SGOT) 21U/L (15-37) Alanine Aminotransferase (ALT/SGPT) 15U/L (16-63) Alkaline Phosphatase 222U/L (46-116) XC-Pfz-O-Type Natriuretic Peptide 03119mu/mL (0-124) Total Protein 6.0g/dL (6.4-8.2) Albumin 1.6g/dL (3.4-5.0) Albumin/Globulin Ratio 0.4 (1.0-1.7) Triglycerides Level 58mg/dL (0-150) Glucose (Fingerstick) 206mg/dL (70-99) 86mg/dL (70-99) Laboratory Tests Test 07/08/16 12:20 07/08/16 16:58 07/09/16 05:35 07/09/16 08:52 White Blood Count 5.0x10^3/uL (4.0-11.0) 5.9x10^3/uL (4.0-11.0) Red Blood Count 3.35x10^6/uL (4.30-5.70) 3.30x10^6/uL (4.30-5.70) Hemoglobin 9.4g/dL (13.0-17.5) 9.2g/dL (13.0-17.5) Hematocrit 29.8% (39.0-53.0) 29.5% (39.0-53.0) Mean Corpuscular Volume 89fL (79-100) 90fL (79-100) Mean Corpuscular Hemoglobin 28pg (25-35) 28pg (25-35) Mean Corpuscular Hemoglobin Concent 32g/dL (31-37) 31g/dL (31-37) Red Cell Distribution Width 17.3% (11.5-14.5) 17.5% (11.5-14.5) Platelet Count 139x10^3/uL (140-400) 136x10^3/uL (140-400) Neutrophils (%) (Auto) 65% (31-73) 61% (31-73) Lymphocytes (%) (Auto) 21% (24-48) 24% (24-48) Monocytes (%) (Auto) 12% (0-9) 11% (0-9) Eosinophils (%) (Auto) 1% (0-3) 2% (0-3) Basophils (%) (Auto) 1% (0-3) 1% (0-3) Neutrophils # (Auto) 3.3x10^3uL (1.8-7.7) 3.6x10^3uL (1.8-7.7) Lymphocytes # (Auto) 1.1x10^3/uL (1.0-4.8) 1.4x10^3/uL (1.0-4.8) Monocytes # (Auto) 0.6x10^3/uL (0.0-1.1) 0.7x10^3/uL (0.0-1.1) Eosinophils # (Auto) 0.0x10^3/uL (0.0-0.7) 0.1x10^3/uL (0.0-0.7) Basophils # (Auto) 0.0x10^3/uL (0.0-0.2) 0.1x10^3/uL (0.0-0.2) Prothrombin Time 15.8SEC (11.7-14.0) Prothromb Time International Ratio 1.3 (0.8-1.1) Sodium Level 142mmol/L (136-145) 140mmol/L (136-145) Potassium Level 2.8mmol/L (3.5-5.1) 3.4mmol/L (3.5-5.1) Chloride Level 105mmol/L (98-107) 106mmol/L (98-107) Carbon Dioxide Level 24mmol/L (21-32) 24mmol/L (21-32) Anion Gap 13 (6-14) 10 (6-14) Blood Urea Nitrogen 32mg/dL (8-26) 35mg/dL (8-26) Creatinine 5.9mg/dL (0.7-1.3) 6.5mg/dL (0.7-1.3) Estimated GFR (Cockcroft-Gault) 12.0 10.7 BUN/Creatinine Ratio 5 (6-20) Glucose Level 259mg/dL (70-99) 112mg/dL (70-99) Lactic Acid Level 2.3mmol/L (0.4-2.0) Calcium Level 7.7mg/dL (8.5-10.1) 7.3mg/dL (8.5-10.1) Total Bilirubin 0.4mg/dL (0.2-1.0) Aspartate Amino Transf (AST/SGOT) 21U/L (15-37) Alanine Aminotransferase (ALT/SGPT) 15U/L (16-63) Alkaline Phosphatase 222U/L (46-116) AS-Lor-B-Type Natriuretic Peptide 70115tq/mL (0-124) Total Protein 6.0g/dL (6.4-8.2) Albumin 1.6g/dL (3.4-5.0) Albumin/Globulin Ratio 0.4 (1.0-1.7) Triglycerides Level 58mg/dL (0-150) Glucose (Fingerstick) 206mg/dL (70-99) 86mg/dL (70-99) Brief Hospital Course Mr. Sparks is a 56 old H/o cirrhosis 2/2 Hep C and alcohol w/ ascites and previous paracentesis. he was brought to ER from his living facility for SOA and worsening abd distention. 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) Scheduled ([Vancomycin Hcl]) 125 MG PO [id number] Allopurinol (Allopurinol) 1 TAB PO DAILY (Reported) Amiodarone Hcl (Amiodarone Hcl) 1 TAB PO DAILY (Reported) Amlodipine Besylate (Amlodipine Besylate) 5 MG PO DAILY (Reported) Atorvastatin Calcium (Atorvastatin Calcium) 1 TAB PO DAILY (Reported) Calcium Acetate (Phoslo) 2 CAP PO TIDWMEALS (Reported) Calcium Carbonate/Vitamin D2 (Oyster Shell Calcium-Vit D Tab) 1 EACH PO BID ( Reported) Carvedilol (Carvedilol) 12.5 MG PO BIDWMEALS (Reported) Darbepoetin Aaron In Polysorbat (Aranesp Syringe) 60 MCG SQ WEEKLY (Reported) Folic Acid (Folic Acid) 1 MG PO DAILY (Reported) Furosemide (Furosemide) 40 MG PO DAILY (Reported) Glucagon,Human Recombinant (Glucagon Emergency Kit) 1 MG IM PRN (Reported) Hydralazine Hcl (Hydralazine Hcl) 1 TAB PO TID (Reported) Insulin Aspart (Novolog Flexpen) 3 UNIT SQ TIDAC (Reported) Ipratropium/Albuterol Sulfate (Combivent Respimat Inhal) 1 INH IH BID (Reported ) Isosorbide Dinitrate (Isordil) 40 MG PO TID (Reported) Lactobacillus Acidophilus (Acidophilus Lactobacillus) 1 EACH PO DAILY (Reported ) Levothyroxine Sodium (Levothyroxine Sodium) 75 MCG PO DAILYAC (Reported) Multivitamin (Multi-Vitamin Daily) 1 EACH PO DAILY (Reported) Oxycodone Hcl (Oxycontin) 15 MG PO BID (Reported) Pantoprazole Sodium (Protonix) 1 TAB PO BID (Reported) Phytonadione (Mephyton) 5 MG PO DAILY (Reported) Sodium Bicarbonate (Sodium Bicarbonate) 2 TAB PO BID (Reported) Spironolactone (Spironolactone) 50 MG PO DAILY (Reported) Tamsulosin Hcl (Tamsulosin Hcl) 1 CAP PO DAILY (Reported) Scheduled PRN Acetaminophen (Acetaminophen) 650 MG PO PRN Q4HRS PRN PRN PAIN (Reported) Dextrose (Glucose Gel) 38 GM PO PRN PRN PRN Low blood sugar (Reported) Oxycodone Hcl (Oxycodone Hcl) 15 MG PO Q3HRS PRN PRN PAIN (Reported) Patient Instructions Patient Instructions time > 30 min HECTOR CASTRO MD Jul 09, 2016 11:29
--- NOTE | 2016-07-09 11:46 | PDOC2 ---
CONSULT Date of Consult Date of Consult DATE: 07/09/16 TIME: 11:42 Reason for Consult Reason for Consult: ESRD AND ASCITES Referring Physician Referring Physician: MATTHEW Identification/Chief Complaint Chief Complaint SOB Source Source: Chart review, Patient History of Present Illness Reason for Visit: THIS IS A 56 YR OLD ADMITTED WITH SOB AND ASCITES DUE TO HEP C AND ETOH RELATED LIVER CIRRHOSIS. HE HAS ESRD AND IS ON OP HD ON MWF. HE MISSED HIS TX YESTERDAY. HE IS IN NEED OF PARACENTESIS. LABS ARE OTHERWISE C/W ESRD Past Medical History Cardiovascular: CAD, CHF, HTN Pulmonary: No pertinent hx CENTRAL NERVOUS SYSTEM: Dementia GI: Other Heme/Onc: Anemia NOS Hepatobiliary: Cirrhosis, Hep A/B/C (C) Psych: Addictions Musculoskeletal: Osteoarthritis Rheumatologic: Gout ENT: No pertinent hx Renal/: Chronic renal failure Endocrine: Diabetes, Hypothyroidism Past Surgical History Past Surgical History: Other Family History Family History: No Significant, Family History Unknown Social History No ALCOHOL: other (previously heavy) Drugs: Cocaine Lives: [facility] Current Problem List Problem List Problems Medical Problems: (1) Ascites Status: Acute Current Medications Current Medications Current Medications Ondansetron HCl (Zofran) 4 mg PRN Q8HRS PRN IV NAUSEA/VOMITING Last administered on 07/08/16 13:44; Start 07/08/16 at 13:00; Stop 07/09/16 at 12:59 Potassium Chloride 40 meq 40 meq 1X ONCE PO Last administered on 07/08/16 13: 45; Start 07/08/16 at 13:15; Stop 07/08/16 at 13:16; Status DC Sodium Chloride (Iv Sodium Chloride 0.9% 500ml Bag) 500 ml @ 0 mls/hr 1X ONCE IV Last administered on 07/08/16 18:10; Start 07/08/16 at 13:30; Stop at 13:31; Status DC Potassium Chloride (Klor-Con) 20 meq 1X ONCE PO Last administered on 18:08; Start 07/08/16 at 16:15; Stop 07/08/16 at 16:16; Status DC Insulin Aspart (Novolog) 0-7 UNITS TIDWMEALS SQ Last administered on 07/08/16 18:19; Start 07/08/16 at 17:00 Dextrose 12.5 gm PRN Q15MIN PRN IV SEE COMMENTS; Start 07/08/16 at 16:15 Amlodipine Besylate (Norvasc) 5 mg DAILY PO Last administered on 07/08/16 18: 09; Start 07/08/16 at 17:00 Lidocaine/Sodium Bicarbonate (Buffered Lidocaine 1%) 20 ml STK-MED ONCE IJ ; Start 07/09/16 at 10:12; Stop 07/09/16 at 10:13; Status DC Fentanyl Citrate (Fentanyl 2ml Vial) 100 mcg STK-MED ONCE .ROUTE ; Start at 10:12; Stop 07/09/16 at 10:13; Status DC Midazolam HCl 2 mg 2 mg STK-MED ONCE .ROUTE ; Start 07/09/16 at 10:12; Stop 06/13 at 10:13; Status DC Albumin Human (Albuminar) 100 ml @ As Directed STK-MED ONCE IV ; Start at 10:21; Stop 07/09/16 at 10:22; Status DC Lidocaine/Sodium Bicarbonate (Buffered Lidocaine 1%) 4 ml 1X ONCE IJ Last administered on 07/09/16 10:41; Start 07/09/16 at 10:45; Stop 07/09/16 at 10:46 ; Status DC Midazolam HCl (Versed) 1 mg 1X ONCE IV Last administered on 07/09/16 10:42; Start 07/09/16 at 10:45; Stop 07/09/16 at 10:46; Status DC Fentanyl Citrate 50 mcg 50 mcg 1X ONCE IV Last administered on 07/09/16 10:43 ; Start 07/09/16 at 10:45; Stop 07/09/16 at 10:46; Status DC Albumin Human 100 ml @ 100 mls/hr 1X ONCE IV Last administered on 07/09/16 10:42; Start 07/09/16 at 10:45; Stop 07/09/16 at 11:44 Albumin Human (Albuminar) 100 ml @ 100 mls/hr 1X ONCE IV Last administered on 07/09/16 11:02; Start 07/09/16 at 11:00; Stop 07/09/16 at 11:59 Active Scripts Active [Vancomycin Hcl] 125 MG/2.5 ML Solution 125 Mg PO [id number] 14 Days Reported Furosemide 40 Mg Tablet 40 Mg PO DAILY Aranesp Syringe (Darbepoetin Aaron In Polysorbat) 60 Mcg/0.3 Ml Disp.syrin 60 Mcg SQ WEEKLY Mephyton (Phytonadione) 5 Mg Tablet 5 Mg PO DAILY Phoslo (Calcium Acetate) 667 Mg Capsule 2 Cap PO TIDWMEALS Allopurinol 100 Mg Tablet 1 Tab PO DAILY Spironolactone 50 Mg Tablet 50 Mg PO DAILY Oxycontin (Oxycodone HCl) 15 Mg Tab.er.12h 15 Mg PO BID Oxycodone Hcl 5 Mg Capsule 15 Mg PO Q3HRS PRN Oyster Shell Calcium-Vit D Tab (Calcium Carbonate/Vitamin D2) 1 Each Tablet 1 Each PO BID Acidophilus Lactobacillus (Lactobacillus Acidophilus) 1 Each Capsule 1 Each PO DAILY Glucose Gel (Dextrose) 38 Gm Gel..gram. 38 Gm PO PRN PRN Glucagon Emergency Kit (Glucagon,Human Recombinant) 1 Mg Kit 1 Mg IM PRN Acetaminophen 325 Mg Tablet 650 Mg PO PRN Q4HRS PRN Tamsulosin Hcl 0.4 Mg Cap.er.24h 1 Cap PO DAILY Sodium Bicarbonate 650 Mg Tablet 2 Tab PO BID Protonix (Pantoprazole Sodium) 40 Mg Tablet.dr 1 Tab PO BID Multi-Vitamin Daily (Multivitamin) 1 Each Tablet 1 Each PO DAILY Isordil (Isosorbide Dinitrate) 40 Mg Tablet 40 Mg PO TID Combivent Respimat Inhal (Ipratropium/Albuterol Sulfate) 4 Gm Aer.w.adap 1 Inh IH BID Hydralazine Hcl 50 Mg Tablet 1 Tab PO TID wed, wed, wed, sat. Atorvastatin Calcium 10 Mg Tablet 1 Tab PO DAILY Amlodipine Besylate 5 Mg Tablet 5 Mg PO DAILY wed, wed, sat. hold if sbp is less than 110. call dr if sbp is > 170. Amiodarone Hcl 200 Mg Tablet 1 Tab PO DAILY Novolog Flexpen (Insulin Aspart) 100 Unit/1 Ml Insuln.pen 3 Unit SQ TIDAC Folic Acid 1 Mg Tablet 1 Mg PO DAILY Carvedilol 12.5 Mg Tablet 12.5 Mg PO BIDWMEALS wed, wed, wed, sat. hold if sbp is 110. call dr if sbp is > 170. Levothyroxine Sodium 25 Mcg Tablet 75 Mcg PO DAILYAC Allergies Allergies: Coded Allergies: I S O L A T I O N *CONTACT* (Verified Allergy, Unknown, C-DIFF ISOLATION, 06/23/16) No Known Medication Allergies (Verified Allergy, Unknown, 06/24/16) ROS General: YES: Appetite, Fatigue, Malaise PSYCHOLOGICAL ROS: YES: Anxiety Eyes: Yes Decreased vision HEENT: YES: Heacaches Respiratory: YES: Cough, Orthopnea, Shortness of breath Cardiovascular: yes Orthopnea Gastrointestinal: Yes Constipation, Yes Other (ABD DISTENTION) Genitourinary: YES Other (ANURIA) Musculoskeletal: Yes Muscular Weakness Neurological: Yes Weakness Skin: Yes Dry Skin Physical Exam General: Alert, Oriented X3, Cooperative, No acute distress HEENT: Atraumatic, PERRLA, Other (DECREASED AT BASES) Heart: Regular rate, Normal S1, Normal S2 Abdomen: Normal bowel sounds, Soft, Other (DISTENED BUT NT) Extremities: No edema Skin: No rashes Neuro: Normal speech, Cranial nerves 3-12 NL Psych/Mental Status: Mental status NL, Mood NL MUSCULOSKELETAL: No joint tenderness, No deformity Vitals VITALS Vital Signs Date Time Temp Pulse Resp B/P Pulse Ox O2 Delivery O2 Flow Rate FiO2 07/09/16 11:01 74 14 100 Nasal Cannula 2.0 07/09/16 07:00 98.2 92/61 98.2 Labs Labs Laboratory Tests Test 07/08/16 12:20 07/08/16 16:58 07/09/16 05:35 07/09/16 08:52 White Blood Count 5.0x10^3/uL (4.0-11.0) 5.9x10^3/uL (4.0-11.0) Red Blood Count 3.35x10^6/uL (4.30-5.70) 3.30x10^6/uL (4.30-5.70) Hemoglobin 9.4g/dL (13.0-17.5) 9.2g/dL (13.0-17.5) Hematocrit 29.8% (39.0-53.0) 29.5% (39.0-53.0) Mean Corpuscular Volume 89fL (79-100) 90fL (79-100) Mean Corpuscular Hemoglobin 28pg (25-35) 28pg (25-35) Mean Corpuscular Hemoglobin Concent 32g/dL (31-37) 31g/dL (31-37) Red Cell Distribution Width 17.3% (11.5-14.5) 17.5% (11.5-14.5) Platelet Count 139x10^3/uL (140-400) 136x10^3/uL (140-400) Neutrophils (%) (Auto) 65% (31-73) 61% (31-73) Lymphocytes (%) (Auto) 21% (24-48) 24% (24-48) Monocytes (%) (Auto) 12% (0-9) 11% (0-9) Eosinophils (%) (Auto) 1% (0-3) 2% (0-3) Basophils (%) (Auto) 1% (0-3) 1% (0-3) Neutrophils # (Auto) 3.3x10^3uL (1.8-7.7) 3.6x10^3uL (1.8-7.7) Lymphocytes # (Auto) 1.1x10^3/uL (1.0-4.8) 1.4x10^3/uL (1.0-4.8) Monocytes # (Auto) 0.6x10^3/uL (0.0-1.1) 0.7x10^3/uL (0.0-1.1) Eosinophils # (Auto) 0.0x10^3/uL (0.0-0.7) 0.1x10^3/uL (0.0-0.7) Basophils # (Auto) 0.0x10^3/uL (0.0-0.2) 0.1x10^3/uL (0.0-0.2) Prothrombin Time 15.8SEC (11.7-14.0) Prothromb Time International Ratio 1.3 (0.8-1.1) Sodium Level 142mmol/L (136-145) 140mmol/L (136-145) Potassium Level 2.8mmol/L (3.5-5.1) 3.4mmol/L (3.5-5.1) Chloride Level 105mmol/L (98-107) 106mmol/L (98-107) Carbon Dioxide Level 24mmol/L (21-32) 24mmol/L (21-32) Anion Gap 13 (6-14) 10 (6-14) Blood Urea Nitrogen 32mg/dL (8-26) 35mg/dL (8-26) Creatinine 5.9mg/dL (0.7-1.3) 6.5mg/dL (0.7-1.3) Estimated GFR (Cockcroft-Gault) 12.0 10.7 BUN/Creatinine Ratio 5 (6-20) Glucose Level 259mg/dL (70-99) 112mg/dL (70-99) Lactic Acid Level 2.3mmol/L (0.4-2.0) Calcium Level 7.7mg/dL (8.5-10.1) 7.3mg/dL (8.5-10.1) Total Bilirubin 0.4mg/dL (0.2-1.0) Aspartate Amino Transf (AST/SGOT) 21U/L (15-37) Alanine Aminotransferase (ALT/SGPT) 15U/L (16-63) Alkaline Phosphatase 222U/L (46-116) IJ-Ffd-Z-Type Natriuretic Peptide 09644wa/mL (0-124) Total Protein 6.0g/dL (6.4-8.2) Albumin 1.6g/dL (3.4-5.0) Albumin/Globulin Ratio 0.4 (1.0-1.7) Triglycerides Level 58mg/dL (0-150) Glucose (Fingerstick) 206mg/dL (70-99) 86mg/dL (70-99) Laboratory Tests Test 07/08/16 12:20 07/08/16 16:58 07/09/16 05:35 07/09/16 08:52 White Blood Count 5.0x10^3/uL (4.0-11.0) 5.9x10^3/uL (4.0-11.0) Red Blood Count 3.35x10^6/uL (4.30-5.70) 3.30x10^6/uL (4.30-5.70) Hemoglobin 9.4g/dL (13.0-17.5) 9.2g/dL (13.0-17.5) Hematocrit 29.8% (39.0-53.0) 29.5% (39.0-53.0) Mean Corpuscular Volume 89fL (79-100) 90fL (79-100) Mean Corpuscular Hemoglobin 28pg (25-35) 28pg (25-35) Mean Corpuscular Hemoglobin Concent 32g/dL (31-37) 31g/dL (31-37) Red Cell Distribution Width 17.3% (11.5-14.5) 17.5% (11.5-14.5) Platelet Count 139x10^3/uL (140-400) 136x10^3/uL (140-400) Neutrophils (%) (Auto) 65% (31-73) 61% (31-73) Lymphocytes (%) (Auto) 21% (24-48) 24% (24-48) Monocytes (%) (Auto) 12% (0-9) 11% (0-9) Eosinophils (%) (Auto) 1% (0-3) 2% (0-3) Basophils (%) (Auto) 1% (0-3) 1% (0-3) Neutrophils # (Auto) 3.3x10^3uL (1.8-7.7) 3.6x10^3uL (1.8-7.7) Lymphocytes # (Auto) 1.1x10^3/uL (1.0-4.8) 1.4x10^3/uL (1.0-4.8) Monocytes # (Auto) 0.6x10^3/uL (0.0-1.1) 0.7x10^3/uL (0.0-1.1) Eosinophils # (Auto) 0.0x10^3/uL (0.0-0.7) 0.1x10^3/uL (0.0-0.7) Basophils # (Auto) 0.0x10^3/uL (0.0-0.2) 0.1x10^3/uL (0.0-0.2) Prothrombin Time 15.8SEC (11.7-14.0) Prothromb Time International Ratio 1.3 (0.8-1.1) Sodium Level 142mmol/L (136-145) 140mmol/L (136-145) Potassium Level 2.8mmol/L (3.5-5.1) 3.4mmol/L (3.5-5.1) Chloride Level 105mmol/L (98-107) 106mmol/L (98-107) Carbon Dioxide Level 24mmol/L (21-32) 24mmol/L (21-32) Anion Gap 13 (6-14) 10 (6-14) Blood Urea Nitrogen 32mg/dL (8-26) 35mg/dL (8-26) Creatinine 5.9mg/dL (0.7-1.3) 6.5mg/dL (0.7-1.3) Estimated GFR (Cockcroft-Gault) 12.0 10.7 BUN/Creatinine Ratio 5 (6-20) Glucose Level 259mg/dL (70-99) 112mg/dL (70-99) Lactic Acid Level 2.3mmol/L (0.4-2.0) Calcium Level 7.7mg/dL (8.5-10.1) 7.3mg/dL (8.5-10.1) Total Bilirubin 0.4mg/dL (0.2-1.0) Aspartate Amino Transf (AST/SGOT) 21U/L (15-37) Alanine Aminotransferase (ALT/SGPT) 15U/L (16-63) Alkaline Phosphatase 222U/L (46-116) WJ-Xqe-N-Type Natriuretic Peptide 29210bd/mL (0-124) Total Protein 6.0g/dL (6.4-8.2) Albumin 1.6g/dL (3.4-5.0) Albumin/Globulin Ratio 0.4 (1.0-1.7) Triglycerides Level 58mg/dL (0-150) Glucose (Fingerstick) 206mg/dL (70-99) 86mg/dL (70-99) Images Images IMP ESRD ANEMIA ASCITES HTN PLAN PARACENTESIS HD TODAY UF TO DW HD THEN MWF START ARANESP WILL FOLLOW ADRIAN PANCHAL MD Jul 09, 2016 11:46
[2016-07-09 13:49] LABS: BF CLARITY CLEAR; BF COLOR YELLOW
[2016-07-09] MEDS ORDERED: DIALYSIS PATIENT. MC PRN ×2 (16:15)
[2016-07-09] MEDS ORDERED: 0.9 % SODIUM CHLORIDE 10 ML DISP.SYRIN. IV PRN ×2 (16:15)
[2016-07-09] MEDS ORDERED: DARBEPOETIN ALFA 60 MCG/0.3 ML DISP.SYRIN. SQ SCH (21:00)
--- NOTE | 2016-07-10 07:06 | RAD ---
Ultrasound-guided therapeutic paracentesis Indication: 56-year-old male with history of end-stage renal disease, congestive heart failure, cirrhosis, and hepatitis C. He represents with recurrent massive ascites, with dyspnea. Image guided paracentesis has been requested. Anesthesia: Approximate 23 minutes moderate sedation was provided utilizing a total of 1 mg Versed and 50 mcg fentanyl, IV. The patient was appropriately monitored by a qualified independent observer throughout the time of moderate sedation. Procedure: Informed consent was obtained from the patient. This procedure was performed in the angiography suite, with the patient on a hospital cart. Preliminary ultrasound examination confirmed the presence of a large volume of abdominal/pelvic ascites. A right abdominal peritoneal fluid collection, suitable for sono guided paracentesis, was selected, was marked, and was documented with a single hard copy ultrasound image. That area was then prepped and draped in the usual sterile fashion. Conscious sedation was provided with IV Versed and fentanyl. Using aseptic technique, local anesthesia, and direct ultrasound guidance, a 21-gauge micropuncture needle was successfully introduced into the selected peritoneal fluid collection. The 21-gauge needle was exchanged over a microguidewire for a micropuncture sheath, which was, in turn, exchanged over a 0.035 inch guidewire for a 6 Barb[place] drainage catheter. Approximately 10,300 cc of straw-clear ascites was removed, samples which were submitted to the clinical laboratory for cell count with differential and culture. The drainage catheter was then removed and a sterile dressing was applied. Patient tolerated the procedure well, without apparent complication. Infusion of 50 g 25% albumin was initiated during the paracentesis procedure. Impression: Successful, uneventful ultrasound-guided large volume paracentesis, as described.
== END 2016-07-09 20:30 | DRG 432 ==
LOC: ER 11:53 → 5 SOUTH 13:13
PROVIDERS: ADMIT Internal Medicine; ATTEND Internal Medicine
PROC: 0W9G30Z Drainage of Peritoneal Cavity with Drainage Device, Percutaneous Approach (ICD-10-PCS; principal; 2016-07-08)
PROC: 5A1D00Z (ICD-10-PCS; 2016-07-08)
DX: K70.31 Alcoholic cirrhosis of liver with ascites (principal); I50.43 Acute on chronic combined systolic (congestive) and diastolic (congestive) heart failure; E43 Unspecified severe protein-calorie malnutrition; N18.6 End stage renal disease; I13.2 Hypertensive heart and chronic kidney disease with heart failure and with stage 5 chronic kidney disease, or end stage renal disease; I42.9 Cardiomyopathy, unspecified; B19.20 Unspecified viral hepatitis C without hepatic coma; D63.1 Anemia in chronic kidney disease; E03.9 Hypothyroidism, unspecified; E11.22 Type 2 diabetes mellitus with diabetic chronic kidney disease; E21.3 Hyperparathyroidism, unspecified; Z68.28 Body mass index [BMI] 28.0-28.9, adult; E78.00 Pure hypercholesterolemia, unspecified; E78.5 Hyperlipidemia, unspecified; F03.90 Unspecified dementia, unspecified severity, without behavioral disturbance, psychotic disturbance, mood disturbance, and anxiety; I25.10 Atherosclerotic heart disease of native coronary artery without angina pectoris; J44.9 Chronic obstructive pulmonary disease, unspecified; M10.9 Gout, unspecified; F17.200 Nicotine dependence, unspecified, uncomplicated; M19.90 Unspecified osteoarthritis, unspecified site; Z99.2 Dependence on renal dialysis
CPT/HCPCS: 36415; 49083; 80048; 80053; 82947; 83605; 83880; 84478; 85027; 85610; 87040; 87071; 87075; 87116; 87205; 89050; 96374; A4215; C1729; C1892; C1894; J1815; J2250; J2405; J3010; J7040; P9046; 99285-25

== ENCOUNTER 2016-07-18 17:25 | Inpatient (IN) | payer OTHER ==
[~2016-07-18] VITALS: Ht 180.3 cm; Wt 65.3 kg
[2016-07-18] MEDS ORDERED: IV NORMAL SALINE 500ML BAG 500 ML IV ONE (17:45)
--- NOTE | 2016-07-18 17:49 | PHYS DOC ---
Past Medical History Past Medical History: Anemia, CHF, Diabetes-Type II, High Cholesterol, Hypertension, Renal Failure Additional Past Medical Histor: Cirrhosis liver, gout, cardiomyopathy, hx drug and Etoh use Past Surgical History: Other Additional Past Surgical Histo: Rt chest dialysis shunt Alcohol Use: Sober Drug Use: Cocaine, Marijuana Adult General Chief Complaint Chief Complaint: ABNORMAL LABS HPI HPI Patient is a 56 year old male who presents with hypokalemia. Patient sent from [facility] in [place] after labs drawn today showed potassium 2.4. Patient feels weak in general but denies any acute complaints. Of note, patient has ESRD and dialyzes MWF. Review of Systems Review of Systems Constitutional: Weak. Denies fever or chills Eyes: Denies change in visual acuity or eye pain HENT: Denies nasal congestion or sore throat Respiratory: Denies cough or shortness of breath Cardiovascular: Denies chest pain GI: Denies abdominal pain, nausea, vomiting, bloody stools or diarrhea : Denies dysuria or hematuria Musculoskeletal: Denies back pain or joint pain Integument: Denies rash or skin lesions Neurologic: Denies headache, focal weakness or sensory changes Current Medications Current Medications Current Medications Medications (Trade) Dose Ordered Sig/Madi Start Time Stop Time Status Last Admin Dose Admin Piperacillin Sod/ Tazobactam Sod (Zosyn Per Pharmacy) 1 each PRN DAILY PRN 07/18/16 18:30 Sodium Chloride (Iv Sodium Chloride 0.9% 500ml Bag) 500 ml @ 500 mls/hr 1X ONCE 07/18/16 17:45 07/18/16 18:44 DC 07/18/16 17:45 500 MLS/HR Vancomycin HCl (Vanco Per Pharmacy) 1 each PRN DAILY PRN 07/18/16 18:30 07/18/16 20:03 1 EACH Allergies Allergies Allergies Coded Allergies Type Severity Reaction Last Updated Verified I S O L A T I O N *CONTACT* Allergy Unknown C-DIFF ISOLATION 06/23/16 Yes No Known Medication Allergies Allergy Unknown 06/24/16 Yes Physical Exam Physical Exam Constitutional: Well developed, thin, no acute distress, non-toxic appearance HENT: Normocephalic, atraumatic, bilateral external ears normal Eyes: EOMI, conjunctiva normal, no discharge Neck: Normal range of motion, no stridor Cardiovascular: Heart rate normal, regular rhythm, no murmur Lungs & Thorax: Bilateral breath sounds clear to auscultation Abdomen: Bowel sounds normal, soft, protuberant, no TTP Skin: Warm, dry, no erythema, no rash Extremities: No obvious deformity, no edema Neurologic: Alert and oriented, no gross deficits noted Current Patient Data Vital Signs Vital Signs Date Time Temp Pulse Resp B/P Pulse Ox O2 Delivery O2 Flow Rate FiO2 07/18/16 18:33 72 7 98/71 Nasal Cannula 4 07/18/16 17:47 100 07/18/16 17:25 97.7 97.7 Lab Values Laboratory Tests Test 07/18/16 17:45 White Blood Count 16.0x10^3/uL (4.0-11.0) H Red Blood Count 3.97x10^6/uL (4.30-5.70) L Hemoglobin 11.0g/dL (13.0-17.5) L Hematocrit 34.8% (39.0-53.0) L Mean Corpuscular Volume 88fL (79-100) Mean Corpuscular Hemoglobin 28pg (25-35) Mean Corpuscular Hemoglobin Concent 32g/dL (31-37) Red Cell Distribution Width 17.6% (11.5-14.5) H Platelet Count 103x10^3/uL (140-400) L Neutrophils (%) (Auto) 89% (31-73) H Lymphocytes (%) (Auto) 6% (24-48) L Monocytes (%) (Auto) 4% (0-9) Eosinophils (%) (Auto) 1% (0-3) Basophils (%) (Auto) 0% (0-3) Neutrophils # (Auto) 14.3x10^3uL (1.8-7.7) H Lymphocytes # (Auto) 1.0x10^3/uL (1.0-4.8) Monocytes # (Auto) 0.6x10^3/uL (0.0-1.1) Eosinophils # (Auto) 0.1x10^3/uL (0.0-0.7) Basophils # (Auto) 0.0x10^3/uL (0.0-0.2) Segmented Neutrophils % 81% (35-66) H Band Neutrophils % 14% (0-9) H Lymphocytes % 3% (24-48) L Monocytes % 2% (0-10) Platelet Estimate Decreased (ADEQUATE) Polychromasia Slight Anisocytosis Slight Target Cells Few Shawn Cells Mod Crenated Cell Present Schistocytes Few Sodium Level 141mmol/L (136-145) Potassium Level 2.9mmol/L (3.5-5.1) *L Chloride Level 107mmol/L (98-107) Carbon Dioxide Level 26mmol/L (21-32) Anion Gap 8 (6-14) Blood Urea Nitrogen 30mg/dL (8-26) H Creatinine 3.8mg/dL (0.7-1.3) H Estimated GFR (Cockcroft-Gault) 19.9 BUN/Creatinine Ratio 8 (6-20) Glucose Level 129mg/dL (70-99) H Calcium Level 8.2mg/dL (8.5-10.1) L Magnesium Level 2.0mg/dL (1.8-2.4) Total Bilirubin 0.5mg/dL (0.2-1.0) Aspartate Amino Transferase (AST) 27U/L (15-37) Alanine Aminotransferase (ALT) 16U/L (16-63) Alkaline Phosphatase 187U/L (46-116) H Total Protein 6.0g/dL (6.4-8.2) L Albumin 1.6g/dL (3.4-5.0) L Albumin/Globulin Ratio 0.4 (1.0-1.7) L Laboratory Tests 07/18/16 17:45 Laboratory Tests 07/18/16 17:45 EKG EKG EKG (my read): sinus rhyhtm, rate 77, normal axis, nonspecific ST changes Radiology/Procedures Radiology/Procedures CXR (my read): No significant change from prior Course & Med Decision Making Course & Med Decision Making Pertinent Labs and Imaging studies reviewed. (See chart for details) Patient is 56 year old male who presents with hypokalemia. Patient denies any acute complaints other than weakness. Will check labs to confirm hypokalemia before treating (especially as patient has ESRD). Small IVF bolus ordered due to hypotension on arrival. BP responsive to fluids. Labs notable for K 2.9; oral replacement ordered. Also notable for leukocytosis; WBC nearly 10K higher than 9 days ago. Concern for possibility of sepsis even though patient not febrile. Broad spectrum abx ordered as well as CXR, lactic, culture. Discussed results with patient. Discussed with Dr. Thomas, who has agreed to admit patient for further care and evaluation. Dragon Disclaimer Dragon Disclaimer This electronic medical record was generated, in whole or in part, using a voice recognition dictation system. Departure Departure Impression: Primary Impression: Hypokalemia Additional Impression: Leukocytosis Disposition: 09 ADMITTED INPATIENT Admitting Physician: Manuel Thomas Condition: GUARDED Referrals: ELIZABETH COMER MD (PCP) Problem Qualifiers CARMENCITA MARTINEZ MD Jul 18, 2016 17:49
[2016-07-18 17:55] LABS: BASO % 0 % (0-3); EOS % 1 % (0-3); HEMATOCRIT 34.8 % (39.0-53.0); LYMPH % 6 % (24-48); MEAN CORPUSCULAR HEMOGLOBIN 28 pg (25-35); MEAN CORPUSCULAR HGB CONC 32 g/dL (31-37); MEAN CORPUSCULAR VOLUME 88 fL (79-100); MONO % 4 % (0-9); NEUT % 89 % (31-73); PLATELET COUNT 103 x10^3/uL (140-400); RED BLOOD COUNT 3.97 x10^6/uL (4.30-5.70); RED CELL DISTRIBUTION WIDTH 17.6 % (11.5-14.5)
[2016-07-18 18:22] LABS: ALBUMIN 1.6 g/dL (3.4-5.0); ALBUMIN/GLOBULIN RATIO 0.4 (1.0-1.7); CALCIUM 8.2 mg/dL (8.5-10.1); CREATININE 3.8 mg/dL (0.7-1.3); GFR 19.9; TOTAL BILIRUBIN 0.5 mg/dL (0.2-1.0)
[2016-07-18 18:28] LABS: POTASSIUM 2.9 mmol/L (3.5-5.1)
[2016-07-18] MEDS ORDERED: PIP/TAZO PER PHARMACY MC PRN (18:30)
[2016-07-18] MEDS ORDERED: ONDANSETRON PF 4 MG/2 ML VIAL. IV PRN (18:45)
[2016-07-18] MEDS ORDERED: POTASSIUM CHLORIDE 20 MEQ TABLET.ER. PO ONE (18:45)
[2016-07-18] MEDS ORDERED: DEXTROSE 50% 25 GM / 50ML DISP.SYRIN. IV PRN (18:45)
[2016-07-18] MEDS ORDERED: MORPHINE SULFATE 2 MG/ML DISP.SYRIN. IV PRN (18:45)
[2016-07-18] MEDS ORDERED: PIPERACILLIN/TAZOBACTAM 2.25 GM in IV NORMAL SALINE 50ML 50 ML IV ONE (18:45)
[2016-07-18] MEDS ORDERED: VANCOMYCIN 1.75 GM in IV NORMAL SALINE 500ML BAG 500 ML IV ONE (18:45)
[2016-07-18 19:22] LABS: ANISOCYTOSIS SLIGHT; PLT ESTIMATE DECREASED (ADEQUATE); TARGET CELLS FEW
[2016-07-18 19:23] LABS: CRENATED RBC PRESENT; POLYCHROMASIA SLIGHT
[2016-07-18 19:24] LABS: BURR CELLS MOD; SCHISTOCYTES FEW
[2016-07-18 19:57] VITALS: BP 93/68
[2016-07-18] MEDS: VANCOMYCIN PER PHARMACY MC PRN (20:03)
[2016-07-18 23:52] VITALS: BP 87/67
[2016-07-19] VITALS (7 sets, daily range): BP systolic 64–98; BP diastolic 49–68
[2016-07-19] MEDS ORDERED: INFLUENZA VAX SCREEN BY RX. MC PRN (05:30)
[2016-07-19] MEDS ORDERED: PNEUMOCOCCAL VAX SCREEN BY RX. MC PRN (05:30)
[2016-07-19] MEDS ORDERED: CEPH-264 PO (05:46)
[2016-07-19] MEDS ORDERED: LACT1CAP24 PO (05:46)
[2016-07-19] MEDS ORDERED: LOPE2CAP88 PO (05:46)
[2016-07-19] MEDS: PIPERACILLIN/TAZOBACTAM 2.25 GM in IV NORMAL SALINE 50ML 50 ML IV SCH ×3 (06:41→23:07)
[2016-07-19 07:03] LABS: CALCIUM 7.8 mg/dL (8.5-10.1); GFR 18.8
[2016-07-19 07:07] LABS: POTASSIUM 2.7 mmol/L (3.5-5.1)
[2016-07-19] MEDS ORDERED: POTASSIUM CHLORIDE 20 MEQ TABLET.ER. PO ONE ×2 (07:45)
[2016-07-19] MEDS: INSULIN ASPART 300 UNITS/3 ML INSULN.PEN SQ SCH ×3 (08:00→17:00)
--- NOTE | 2016-07-19 09:04 | RAD ---
Portable chest, 07/18/2016: History: Leukocytosis, previous congestive heart failure Comparison is made to a study from 05/07/2016. A right-sided dialysis type catheter remains in place extending into the right atrium. The patient positioning is kyphotic with partial obscuration of the cardiac margins. The heart appears to be mildly enlarged. There is calcific plaquing of the aorta. The pulmonary vascularity is normal. There are moderate streaky bibasilar opacities suggesting atelectasis. Similar findings were present on the previous study. A component of pneumonia cannot be excluded. The upper lung mckeon are clear. No pleural fluid is visualized. IMPRESSION: Moderate ongoing streaky bibasilar atelectasis.
[2016-07-19 10:56] LABS: BASO % 0 % (0-3); EOS % 1 % (0-3); HEMATOCRIT 34.4 % (39.0-53.0); HEMOGLOBIN 10.8 g/dL (13.0-17.5); LYMPH # 0.9 x10^3/uL (1.0-4.8); LYMPH % 6 % (24-48); MEAN CORPUSCULAR HEMOGLOBIN 28 pg (25-35); MEAN CORPUSCULAR HGB CONC 32 g/dL (31-37); MEAN CORPUSCULAR VOLUME 87 fL (79-100); MONO % 4 % (0-9); NEUT % 89 % (31-73); RED BLOOD COUNT 3.95 x10^6/uL (4.30-5.70); WHITE BLOOD COUNT 13.9 x10^3/uL (4.0-11.0)
--- NOTE | 2016-07-19 11:38 | EKG ---
[facility] [address] [place] [address] Test Date: 2016-07-18 Test Time: 18:02:29 Pat Name: MARSHA HENRY Department: Room: [facility] Gender: M [employer] Supervisor: : 1960 Requested By: CARMENCITA MARTINEZ Order Number: [id number] Reading MD: Jody Freitas Measurements Intervals [place] Rate: 77 P: 0 OR: 196 QRS: 19 QRSD: 90 T: -3 QT: 410 QTc: 466 Interpretive Statements SINUS RHYTHM LOW LIMB LEAD VOLTAGE QRS(T) CONTOUR ABNORMALITY CONSISTENT WITH ANTEROSEPTAL INFARCT AGE UNDETERMINED T ABNORMALITY IN ANTERIOR LEADS ABNORMAL ECG RI6.01 Compared to ECG 05/07/2016 08:13:09 Myocardial infarct finding now present T-wave abnormality now present Electronically Signed On 07-20-2016 0:38:39 SHOE FITTER by Jody Freitas
[2016-07-19 11:49] LABS: PLATELET COUNT 43 x10^3/uL (140-400)
[2016-07-19 11:50] LABS: PLT ESTIMATE DECREASED (ADEQUATE)
[2016-07-19] MEDS ORDERED: ONDANSETRON PF 4 MG/2 ML VIAL. IV PRN (12:45)
[2016-07-19] MEDS ORDERED: MORPHINE SULFATE 2 MG/ML DISP.SYRIN. IV PRN (12:45)
[2016-07-19] MEDS ORDERED: IV NORMAL SALINE 500ML BAG 500 ML IV ONE (12:45)
[2016-07-19] MEDS ORDERED: ACETAMINOPHEN 325 MG TABLET. PO PRN ×2 (12:45)
[2016-07-19] MEDS ORDERED: MORPHINE SULFATE 4 MG/ML DISP.SYRIN. IV PRN (12:45)
[2016-07-19] MEDS: ALLOPURINOL 100 MG TABLET. PO SCH (12:59)
[2016-07-19] MEDS: SODIUM BICARBONATE 650 MG TABLET. PO SCH ×2 (12:59→21:57)
[2016-07-19] MEDS: TAMSULOSIN 0.4 MG CAP.ER.24H. PO SCH (12:59)
[2016-07-19] MEDS: FOLIC ACID 1 MG TABLET PO SCH (12:59)
[2016-07-19] MEDS: METRONIDAZOLE 500 MG TABLET. PO SCH ×2 (12:59→21:56)
[2016-07-19] MEDS: MULTIVITAMIN with MINERAL TABLET. PO SCH (12:59)
[2016-07-19] MEDS ORDERED: ALBUMIN HUMAN 25% 100 ML IV ONE (13:00)
[2016-07-19] MEDS: OXYCODONE ER 15 MG TAB.ER.12H. PO SCH ×2 (13:00→22:01)
[2016-07-19] MEDS ORDERED: PHYTONADIONE 5 MG TABLET PO SCH (13:00)
[2016-07-19] MEDS ORDERED: OXYCODONE IR 5 MG TABLET. PO PRN (13:00)
[2016-07-19] MEDS: VANCOMYCIN PER PHARMACY MC PRN (13:18)
--- NOTE | 2016-07-19 14:26 | PDOC1 ---
History and Physical Date of Admission Date of Admission 07/18/16 Identification/Chief Complaint Chief Complaint low k Problems: Source Source: Chart review, Patient History of Present Illness History of Present Illness HPI HPI Patient is a 56 year old male who presents with hypokalemia. Patient sent from [facility] in [place], not sure about baseline mental status, now cannot give me a history, saying having diarrhea for a few days, with abd pain. Knows in hosp, but dont know which one and dont know the year . looks very fatigue. As per ERP, pt got lab drawn in SNF, K 2.4, sent here. pt said got ascites tapped yesterday, c/o abd pain, no fever, chills, + mild cough, no sob. patient has ESRD and dialyzes MWF. pt has been here many times since 04/2016 for sepsis, hypothermia,low K, ascietes. Past Medical History Cardiovascular: CHF, HTN, Hyperlipidemia Pulmonary: COPD CENTRAL NERVOUS SYSTEM: Dementia GI: Other Heme/Onc: Anemia NOS Hepatobiliary: Cirrhosis, Hep A/B/C Psych: Addictions Rheumatologic: Gout Infectious disease: No pertinent hx Renal/: Chronic renal failure Endocrine: Diabetes, Hypothyroidism Past Surgical History Past Surgical History: Other, No pertinent history Family History Family History: No Significant, Other Social History Smoke: No ALCOHOL: none Drugs: Cocaine Current Problem List Problem List Problems Medical Problems: (1) Hypokalemia Status: Acute (2) Leukocytosis Status: Acute Current Medications Current Medications Current Medications Medications (Trade) Dose Ordered Sig/Madi Start Time Stop Time Status Last Admin Dose Admin Acetaminophen (Tylenol) 650 mg PRN Q6HRS PRN 07/19/16 12:45 07/19/16 12:47 DC Albumin Human (Albuminar) 100 ml @ 100 mls/hr 1X ONCE 07/19/16 13:00 07/19/16 13:59 DC 07/19/16 12:58 100 MLS/HR Albuterol/ Ipratropium (Duoneb) 3 ml BID 07/19/16 13:00 Allopurinol (Zyloprim) 100 mg DAILY 07/19/16 13:00 07/19/16 12:59 100 MG Atorvastatin Calcium (Lipitor) 10 mg QHS 07/19/16 21:00 Calcium Acetate (Phoslo) 667 mg TIDWMEALS 07/19/16 17:00 Calcium/Vitamin D (Oscal D 500mg/ 200uts) 1 tab BIDWMEALS 07/19/16 17:00 Darbepoetin Aaron (Aranesp) 60 mcg Faith 07/19/16 21:00 Dextrose 12.5 gm 12.5 gm PRN Q15MIN PRN 07/18/16 18:45 Folic Acid (Folic Acid) 1 mg DAILY 07/19/16 13:00 07/19/16 12:59 1 MG Info (Do NOT chart on this placeholder) 1 each PRN DAILY PRN 07/19/16 05:30 Cancel Insulin Aspart (Novolog) 0-7 UNITS TIDWMEALS 07/19/16 08:00 Levothyroxine Sodium (Synthroid) 75 mcg DAILY07 07/20/16 07:30 Metronidazole 500 mg 500 mg Q8HRS 07/19/16 14:00 07/19/16 12:59 500 MG Morphine Sulfate 4 mg PRN Q2HR PRN 07/19/16 12:45 Multivitamins/ Calcium (Thera M Plus) 1 tab DAILY 07/19/16 13:00 07/19/16 12:59 1 TAB Non-Formulary Medication 1 inh BID 07/19/16 21:00 07/19/16 21:00 DC Ondansetron HCl (Zofran) 4 mg PRN Q6HRS PRN 07/19/16 12:45 Oxycodone HCl (Oxycontin) 15 mg BID 07/19/16 13:00 07/19/16 13:00 15 MG Oxycodone HCl (Roxicodone) 15 mg PRN Q3HRS PRN 07/19/16 13:00 Pantoprazole Sodium (Protonix) 40 mg BIDBFRMEAL 07/19/16 21:00 Phytonadione (Mephyton) 10 mg DAILY 07/19/16 13:00 07/19/16 12:59 10 MG Piperacillin Sod/ Tazobactam Sod 1 each 1 each PRN DAILY PRN 07/18/16 18:30 Piperacillin Sod/ Tazobactam Sod/ Sodium Chloride (Zosyn/Iv Sodium Chloride 0.9% 50ml) 50 ml @ 100 mls/hr Q8HRS 07/19/16 06:00 07/19/16 06:41 100 MLS/HR Pneumococcal Polyvalent Vaccine (Do NOT chart on this placeholder) 1 each PRN DAILY PRN 07/19/16 05:30 Cancel Potassium Chloride (Klor-Con) 20 meq 1X ONCE 07/19/16 07:45 07/19/16 07:46 DC 07/19/16 07:45 20 MEQ Sodium Bicarbonate (Sodium Bicarbonate) 650 mg BID 07/19/16 13:00 07/19/16 12:59 650 MG Sodium Chloride 500 ml @ 500 mls/hr 1X ONCE 07/19/16 12:45 07/19/16 12:49 DC Sodium Chloride (Iv Sodium Chloride 0.9% 500ml Bag) 500 ml @ 500 mls/hr 1X ONCE 07/18/16 17:45 07/18/16 18:44 DC 07/18/16 17:45 500 MLS/HR Spironolactone (Aldactone) 50 mg DAILY 07/20/16 13:00 Tamsulosin HCl (Flomax) 0.4 mg DAILY 07/19/16 13:00 07/19/16 12:59 0.4 MG Vancomycin HCl 1 each 1X ONCE 07/20/16 20:00 07/20/16 20:01 Vancomycin HCl (Vanco Per Pharmacy) 1 each PRN DAILY PRN 07/18/16 18:30 07/19/16 13:18 1 EACH Vancomycin HCl/ Sodium Chloride (Iv Sodium Chloride 0.9% 500ml Bag) 500 ml @ 250 mls/hr 1X ONCE 07/18/16 18:45 07/18/16 20:44 DC 07/18/16 21:17 250 MLS/HR Allergies Allergies Allergies Coded Allergies Type Severity Reaction Last Updated Verified I S O L A T I O N *CONTACT* Allergy Unknown C-DIFF ISOLATION 06/23/16 Yes No Known Medication Allergies Allergy Unknown 06/24/16 Yes ROS Review of System CONSTITUTIONAL: No fever or chills EYES: No recent changes SKIN: No rash or itching CARDIOVASCULAR: No chest pain, syncope, palpitations, or edema RESPIRATORY: No SOB or cough GASTROINTESTINAL: No nausea, vomiting or abdominal pain NEUROLOGICAL: No headaches or weakness ENDOCRINE: No cold or heat intolerance GENITOURINARY: No urgency or frequency of urination MUSCULOSKELETAL: No back pain or joint pain LYMPHATICS: No enlarged lymph nodes PSYCHIATRIC: No anxiety or depression Physical Exam Physical Exam GEN.: No apparent distress. Alert and orientedx2. to place and person. very thin and weak. HEENT: Head is normocephalic, atraumatic NECK: Supple. LUNGS: Clear to auscultation. HEART: RRR, S1, S2 present. Peripheral pulses intact ABDOMEN: Soft, Positive bowel sounds. distended, mild tenderness, diffusely. EXTREMITIES: Without any cyanosis. bl leg 1-2 + edema NEUROLOGIC: Normal speech, normal tone PSYCHIATRIC: Normal affect, normal mood. SKIN: No ulcerations Vitals Vitals Vital Signs Date Time Temp Pulse Resp B/P Pulse Ox O2 Delivery O2 Flow Rate FiO2 07/19/16 13:00 17 100 Nasal Cannula 2.0 07/19/16 11:00 97.4 65 71/49 97.4 Labs Labs Laboratory Tests Test 07/18/16 17:45 07/18/16 18:58 07/18/16 20:50 07/19/16 06:25 White Blood Count 16.0x10^3/uL (4.0-11.0) Red Blood Count 3.97x10^6/uL (4.30-5.70) Hemoglobin 11.0g/dL (13.0-17.5) Hematocrit 34.8% (39.0-53.0) Mean Corpuscular Volume 88fL (79-100) Mean Corpuscular Hemoglobin 28pg (25-35) Mean Corpuscular Hemoglobin Concent 32g/dL (31-37) Red Cell Distribution Width 17.6% (11.5-14.5) Platelet Count 103x10^3/uL (140-400) Neutrophils (%) (Auto) 89% (31-73) Lymphocytes (%) (Auto) 6% (24-48) Monocytes (%) (Auto) 4% (0-9) Eosinophils (%) (Auto) 1% (0-3) Basophils (%) (Auto) 0% (0-3) Neutrophils # (Auto) 14.3x10^3uL (1.8-7.7) Lymphocytes # (Auto) 1.0x10^3/uL (1.0-4.8) Monocytes # (Auto) 0.6x10^3/uL (0.0-1.1) Eosinophils # (Auto) 0.1x10^3/uL (0.0-0.7) Basophils # (Auto) 0.0x10^3/uL (0.0-0.2) Segmented Neutrophils % 81% (35-66) Band Neutrophils % 14% (0-9) Lymphocytes % 3% (24-48) Monocytes % 2% (0-10) Platelet Estimate Decreased (ADEQUATE) Polychromasia Slight Anisocytosis Slight Target Cells Few [place] Cells Mod Crenated Cell Present Schistocytes Few Sodium Level 141mmol/L (136-145) 142mmol/L (136-145) Potassium Level 2.9mmol/L (3.5-5.1) 2.7mmol/L (3.5-5.1) Chloride Level 107mmol/L (98-107) 108mmol/L (98-107) Carbon Dioxide Level 26mmol/L (21-32) 24mmol/L (21-32) Anion Gap 8 (6-14) 10 (6-14) Blood Urea Nitrogen 30mg/dL (8-26) 34mg/dL (8-26) Creatinine 3.8mg/dL (0.7-1.3) 4.0mg/dL (0.7-1.3) Estimated GFR (Cockcroft-Gault) 19.9 18.8 BUN/Creatinine Ratio 8 (6-20) Glucose Level 129mg/dL (70-99) 84mg/dL (70-99) Calcium Level 8.2mg/dL (8.5-10.1) 7.8mg/dL (8.5-10.1) Magnesium Level 2.0mg/dL (1.8-2.4) 1.9mg/dL (1.8-2.4) Total Bilirubin 0.5mg/dL (0.2-1.0) Aspartate Amino Transf (AST/SGOT) 27U/L (15-37) Alanine Aminotransferase (ALT/SGPT) 16U/L (16-63) Alkaline Phosphatase 187U/L (46-116) Total Protein 6.0g/dL (6.4-8.2) Albumin 1.6g/dL (3.4-5.0) Albumin/Globulin Ratio 0.4 (1.0-1.7) Lactic Acid Level 1.7mmol/L (0.4-2.0) 1.7mmol/L (0.4-2.0) Test 07/19/16 09:50 07/19/16 11:15 White Blood Count 13.9x10^3/uL (4.0-11.0) Red Blood Count 3.95x10^6/uL (4.30-5.70) Hemoglobin 10.8g/dL (13.0-17.5) Hematocrit 34.4% (39.0-53.0) Mean Corpuscular Volume 87fL (79-100) Mean Corpuscular Hemoglobin 28pg (25-35) Mean Corpuscular Hemoglobin Concent 32g/dL (31-37) Red Cell Distribution Width 17.0% (11.5-14.5) Platelet Count 43x10^3/uL (140-400) Neutrophils (%) (Auto) 89% (31-73) Lymphocytes (%) (Auto) 6% (24-48) Monocytes (%) (Auto) 4% (0-9) Eosinophils (%) (Auto) 1% (0-3) Basophils (%) (Auto) 0% (0-3) Neutrophils # (Auto) 12.4x10^3uL (1.8-7.7) Lymphocytes # (Auto) 0.9x10^3/uL (1.0-4.8) Monocytes # (Auto) 0.5x10^3/uL (0.0-1.1) Eosinophils # (Auto) 0.1x10^3/uL (0.0-0.7) Basophils # (Auto) 0.0x10^3/uL (0.0-0.2) Platelet Estimate Decreased (ADEQUATE) Giant Platelets Present Glucose (Fingerstick) 84mg/dL (70-99) Laboratory Tests Test 07/18/16 17:45 07/18/16 18:58 07/18/16 20:50 07/19/16 06:25 White Blood Count 16.0x10^3/uL (4.0-11.0) Red Blood Count 3.97x10^6/uL (4.30-5.70) Hemoglobin 11.0g/dL (13.0-17.5) Hematocrit 34.8% (39.0-53.0) Mean Corpuscular Volume 88fL (79-100) Mean Corpuscular Hemoglobin 28pg (25-35) Mean Corpuscular Hemoglobin Concent 32g/dL (31-37) Red Cell Distribution Width 17.6% (11.5-14.5) Platelet Count 103x10^3/uL (140-400) Neutrophils (%) (Auto) 89% (31-73) Lymphocytes (%) (Auto) 6% (24-48) Monocytes (%) (Auto) 4% (0-9) Eosinophils (%) (Auto) 1% (0-3) Basophils (%) (Auto) 0% (0-3) Neutrophils # (Auto) 14.3x10^3uL (1.8-7.7) Lymphocytes # (Auto) 1.0x10^3/uL (1.0-4.8) Monocytes # (Auto) 0.6x10^3/uL (0.0-1.1) Eosinophils # (Auto) 0.1x10^3/uL (0.0-0.7) Basophils # (Auto) 0.0x10^3/uL (0.0-0.2) Segmented Neutrophils % 81% (35-66) Band Neutrophils % 14% (0-9) Lymphocytes % 3% (24-48) Monocytes % 2% (0-10) Platelet Estimate Decreased (ADEQUATE) Polychromasia Slight Anisocytosis Slight Target Cells Few Shawn Cells Mod Crenated Cell Present Schistocytes Few Sodium Level 141mmol/L (136-145) 142mmol/L (136-145) Potassium Level 2.9mmol/L (3.5-5.1) 2.7mmol/L (3.5-5.1) Chloride Level 107mmol/L (98-107) 108mmol/L (98-107) Carbon Dioxide Level 26mmol/L (21-32) 24mmol/L (21-32) Anion Gap 8 (6-14) 10 (6-14) Blood Urea Nitrogen 30mg/dL (8-26) 34mg/dL (8-26) Creatinine 3.8mg/dL (0.7-1.3) 4.0mg/dL (0.7-1.3) Estimated GFR (Cockcroft-Gault) 19.9 18.8 BUN/Creatinine Ratio 8 (6-20) Glucose Level 129mg/dL (70-99) 84mg/dL (70-99) Calcium Level 8.2mg/dL (8.5-10.1) 7.8mg/dL (8.5-10.1) Magnesium Level 2.0mg/dL (1.8-2.4) 1.9mg/dL (1.8-2.4) Total Bilirubin 0.5mg/dL (0.2-1.0) Aspartate Amino Transf (AST/SGOT) 27U/L (15-37) Alanine Aminotransferase (ALT/SGPT) 16U/L (16-63) Alkaline Phosphatase 187U/L (46-116) Total Protein 6.0g/dL (6.4-8.2) Albumin 1.6g/dL (3.4-5.0) Albumin/Globulin Ratio 0.4 (1.0-1.7) Lactic Acid Level 1.7mmol/L (0.4-2.0) 1.7mmol/L (0.4-2.0) Test 07/19/16 09:50 07/19/16 11:15 White Blood Count 13.9x10^3/uL (4.0-11.0) Red Blood Count 3.95x10^6/uL (4.30-5.70) Hemoglobin 10.8g/dL (13.0-17.5) Hematocrit 34.4% (39.0-53.0) Mean Corpuscular Volume 87fL (79-100) Mean Corpuscular Hemoglobin 28pg (25-35) Mean Corpuscular Hemoglobin Concent 32g/dL (31-37) Red Cell Distribution Width 17.0% (11.5-14.5) Platelet Count 43x10^3/uL (140-400) Neutrophils (%) (Auto) 89% (31-73) Lymphocytes (%) (Auto) 6% (24-48) Monocytes (%) (Auto) 4% (0-9) Eosinophils (%) (Auto) 1% (0-3) Basophils (%) (Auto) 0% (0-3) Neutrophils # (Auto) 12.4x10^3uL (1.8-7.7) Lymphocytes # (Auto) 0.9x10^3/uL (1.0-4.8) Monocytes # (Auto) 0.5x10^3/uL (0.0-1.1) Eosinophils # (Auto) 0.1x10^3/uL (0.0-0.7) Basophils # (Auto) 0.0x10^3/uL (0.0-0.2) Platelet Estimate Decreased (ADEQUATE) Giant Platelets Present Glucose (Fingerstick) 84mg/dL (70-99) VTE Prophylaxis Ordered VTE Prophylaxis Devices: No VTE Pharmacological Prophylaxi: No Assessment/Plan Assessment/Plan 1. hypokalemia 2. ESRD ON HD MWF 3. ASCietes with hep C, cirrhosis 4. leukocytosis 5. 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 HTN, NOW HYpotension 9. hld 10. gout 11. severe malnutrition 12. hx drug and Etoh use, Cocaine, Marijuana 13. h/o cdiff 14. ANEMIA, with ESRD, cirrhosis plan: 1. gi, renal IR consult pt likely need paracentesis 2. hold all home meds for HTN given low BP now 3. albumin x1 4. check stool cx, cdiff 5. on zosyn ,vanco, add flagyl for now 6. PAT for hospice consult 7. replete K 8. ssi PTOT no dvt ppx given low PLT UA, UCX, BCX poor prognosis JOSSE STAHL MD Jul 19, 2016 14:26
[2016-07-19] MEDS: IPRATRPIUM/ALBUTEROL 0.5/2.5MG 3 ML NEBU. NEB SCH ×2 (14:59→20:36)
--- NOTE | 2016-07-19 17:00 | PDOC2 ---
CONSULT Date of Consult Date of Consult DATE: 07/19/16 TIME: 16:58 Past Medical History Cardiovascular: CHF, HTN, Hyperlipidemia Pulmonary: COPD CENTRAL NERVOUS SYSTEM: Dementia GI: Other Heme/Onc: Anemia NOS Hepatobiliary: Cirrhosis, Hep A/B/C Psych: Addictions Musculoskeletal: Osteoarthritis Rheumatologic: Gout Infectious disease: No pertinent hx Renal/: Chronic renal failure Endocrine: Diabetes, Hypothyroidism Past Surgical History Past Surgical History: Other, No pertinent history Family History Family History: No Significant, Other Social History No ALCOHOL: none Drugs: Cocaine Lives: Long-Term Current Problem List Problem List Problems Medical Problems: (1) Hypokalemia Status: Acute (2) Leukocytosis Status: Acute Current Medications Current Medications Current Medications Sodium Chloride (Iv Sodium Chloride 0.9% 500ml Bag) 500 ml @ 500 mls/hr 1X ONCE IV Last administered on 07/18/16 17:45; Start 07/18/16 at 17:45; Stop at 18:44; Status DC Vancomycin HCl (Vanco Per Pharmacy) 1 each PRN DAILY PRN MC SEE COMMENTS Last administered on 07/19/16 13:18; Start 07/18/16 at 18:30 Piperacillin Sod/ Tazobactam Sod 1 each 1 each PRN DAILY PRN MC SEE COMMENTS; Start 07/18/16 at 18:30 Vancomycin HCl/ Sodium Chloride (Iv Sodium Chloride 0.9% 500ml Bag) 500 ml @ 250 mls/hr 1X ONCE IV Last administered on 07/18/16 21:17; Start 07/18/16 at 18:45; Stop 07/18/16 at 20:44; Status DC Potassium Chloride 40 meq 40 meq 1X ONCE PO Last administered on 07/18/16 19: 05; Start 07/18/16 at 18:45; Stop 07/18/16 at 18:46; Status DC Piperacillin Sod/ Tazobactam Sod/ Sodium Chloride (Zosyn/Iv Sodium Chloride 0.9 % 50ml) 50 ml @ 100 mls/hr ONCE ONCE IV Last administered on 07/18/16 19:05 ; Start 07/18/16 at 18:45; Stop 07/18/16 at 19:14; Status DC Ondansetron HCl (Zofran) 4 mg PRN Q8HRS PRN IV NAUSEA/VOMITING; Start 07/18/16 at 18:45; Stop 07/19/16 at 18:44 Morphine Sulfate 2 mg PRN Q2HR PRN IV PAIN Last administered on 07/19/16 10:36 ; Start 07/18/16 at 18:45; Stop 07/19/16 at 13:25; Status DC Insulin Aspart (Novolog) 0-7 UNITS TIDWMEALS SQ ; Start 07/19/16 at 08:00 Dextrose 12.5 gm 12.5 gm PRN Q15MIN PRN IV SEE COMMENTS; Start 07/18/16 at 18: 45 Piperacillin Sod/ Tazobactam Sod/ Sodium Chloride (Zosyn/Iv Sodium Chloride 0.9 % 50ml) 50 ml @ 100 mls/hr Q8HRS IV Last administered on 07/19/16 06:41; Start 07/19/16 at 06:00 Vancomycin HCl 1 each 1X ONCE MC ; Start 07/20/16 at 20:00; Stop 07/20/16 at 20 :01 Info (Do NOT chart on this placeholder) 1 each PRN DAILY PRN MC STATUS UNKNOWN ; Start 07/19/16 at 05:30; Status Cancel Pneumococcal Polyvalent Vaccine (Do NOT chart on this placeholder) 1 each PRN DAILY PRN MC STATUS UNKNOWN; Start 07/19/16 at 05:30; Status Cancel Potassium Chloride (Klor-Con) 40 meq 1X ONCE PO Last administered on 07:45; Start 07/19/16 at 07:45; Stop 07/19/16 at 07:46; Status DC Potassium Chloride (Klor-Con) 20 meq 1X ONCE PO Last administered on 07:45; Start 07/19/16 at 07:45; Stop 07/19/16 at 07:46; Status DC Acetaminophen (Tylenol) 650 mg PRN Q4HRS PRN PO PAIN; Start 07/19/16 at 12:45 Allopurinol (Zyloprim) 100 mg DAILY PO Last administered on 07/19/16 12:59; Start 07/19/16 at 13:00 Atorvastatin Calcium (Lipitor) 10 mg QHS PO ; Start 07/19/16 at 21:00 Calcium Acetate (Phoslo) 667 mg TIDWMEALS PO ; Start 07/19/16 at 17:00 Darbepoetin Aaron (Aranesp) 60 mcg Faith SQ ; Start 07/19/16 at 21:00 Folic Acid (Folic Acid) 1 mg DAILY PO Last administered on 07/19/16 12:59; Start 07/19/16 at 13:00 Levothyroxine Sodium (Synthroid) 75 mcg DAILY07 PO ; Start 07/20/16 at 07:30 Oxycodone HCl (Oxycontin) 15 mg BID PO Last administered on 07/19/16 13:00; Start 07/19/16 at 13:00 Pantoprazole Sodium (Protonix) 40 mg BIDBFRMEAL PO ; Start 07/19/16 at 21:00 Phytonadione (Mephyton) 10 mg DAILY PO Last administered on 07/19/16 12:59; Start 07/19/16 at 13:00; Stop 07/19/16 at 14:18; Status DC Sodium Bicarbonate (Sodium Bicarbonate) 650 mg BID PO Last administered on 07/19 12:59; Start 07/19/16 at 13:00 Tamsulosin HCl (Flomax) 0.4 mg DAILY PO Last administered on 07/19/16 12:59; Start 07/19/16 at 13:00 Calcium/Vitamin D (Oscal D 500mg/ 200uts) 1 tab BIDWMEALS PO ; Start 07/19/16 at 17:00 Non-Formulary Medication 1 inh BID IH ; Start 07/19/16 at 21:00; Stop 07/19/16 at 21:00; Status DC Multivitamins/ Calcium (Thera M Plus) 1 tab DAILY PO Last administered on 12:59; Start 07/19/16 at 13:00 Oxycodone HCl (Roxicodone) 15 mg PRN Q3HRS PRN PO SEVERE PAIN; Start 07/19/16 at 13:00 Spironolactone (Aldactone) 50 mg DAILY PO ; Start 07/20/16 at 13:00 Acetaminophen (Tylenol) 650 mg PRN Q6HRS PRN PO MILD PAIN / TEMP; Start at 12:45; Stop 07/19/16 at 12:47; Status DC Ondansetron HCl (Zofran) 4 mg PRN Q6HRS PRN IV NAUSEA/VOMITING; Start 07/19/16 at 12:45 Morphine Sulfate 2 mg PRN Q2HR PRN IV PAIN; Start 07/19/16 at 12:45 Morphine Sulfate 4 mg PRN Q2HR PRN IV PAIN; Start 07/19/16 at 12:45 Metronidazole 500 mg 500 mg Q8HRS PO Last administered on 07/19/16 12:59; Start 07/19/16 at 14:00 Sodium Chloride 500 ml @ 500 mls/hr 1X ONCE IV ; Start 07/19/16 at 12:45; Stop 07/19/16 at 12:49; Status DC Albumin Human (Albuminar) 100 ml @ 100 mls/hr 1X ONCE IV Last administered on 07/19/16 12:58; Start 07/19/16 at 13:00; Stop 07/19/16 at 13:59; Status DC Albuterol/ Ipratropium (Duoneb) 3 ml BID NEB Last administered on 07/19/16 14: 59; Start 07/19/16 at 13:00 Active Scripts Active Reported Keflex (Cephalexin) 500 Mg Capsule 1 Cap PO TID 7 Days Imodium A-D (Loperamide HCl) 2 Mg Capsule 2 Mg PO PRN Q6HRS PRN Acidophilus Lactobacillus (Lactobacillus Acidophilus) 1 Each Capsule 1 Each PO DAILY Furosemide 40 Mg Tablet 40 Mg PO DAILY Aranesp Syringe (Darbepoetin Aaron In Polysorbat) 60 Mcg/0.3 Ml Disp.syrin 60 Mcg SQ WEEKLY Mephyton (Phytonadione) 5 Mg Tablet 10 Mg PO DAILY Phoslo (Calcium Acetate) 667 Mg Capsule 2 Cap PO TIDWMEALS Allopurinol 100 Mg Tablet 1 Tab PO DAILY Spironolactone 50 Mg Tablet 50 Mg PO DAILY Oxycontin (Oxycodone HCl) 15 Mg Tab.er.12h 15 Mg PO BID Oxycodone Hcl 5 Mg Capsule 15 Mg PO Q3HRS PRN Oyster Shell Calcium-Vit D Tab (Calcium Carbonate/Vitamin D2) 1 Each Tablet 1 Each PO BID Acidophilus Lactobacillus (Lactobacillus Acidophilus) 1 Each Capsule 1 Each PO DAILY Glucose Gel (Dextrose) 38 Gm Gel..gram. 38 Gm PO PRN PRN Glucagon Emergency Kit (Glucagon,Human Recombinant) 1 Mg Kit 1 Mg IM PRN Acetaminophen 325 Mg Tablet 650 Mg PO PRN Q4HRS PRN Tamsulosin Hcl 0.4 Mg Cap.er.24h 1 Cap PO DAILY Sodium Bicarbonate 650 Mg Tablet 1 Tab PO BID Protonix (Pantoprazole Sodium) 40 Mg Tablet.dr 1 Tab PO BID Multi-Vitamin Daily (Multivitamin) 1 Each Tablet 1 Each PO DAILY Isordil (Isosorbide Dinitrate) 40 Mg Tablet 40 Mg PO TID Combivent Respimat Inhal (Ipratropium/Albuterol Sulfate) 4 Gm Aer.w.adap 1 Inh IH BID Hydralazine Hcl 50 Mg Tablet 1 Tab PO TID wed, wed, wed, sat. Atorvastatin Calcium 10 Mg Tablet 1 Tab PO DAILY Amlodipine Besylate 5 Mg Tablet 5 Mg PO DAILY wed, wed, wed, sat. hold if sbp is less than 110. call dr if sbp is > 170. Amiodarone Hcl 200 Mg Tablet 1 Tab PO DAILY Novolog Flexpen (Insulin Aspart) 100 Unit/1 Ml Insuln.pen 3 Unit SQ TIDAC Folic Acid 1 Mg Tablet 1 Mg PO DAILY Carvedilol 12.5 Mg Tablet 12.5 Mg PO BIDWMEALS wed, wed, sat. hold if sbp is 110. call dr if sbp is > 170. Levothyroxine Sodium 25 Mcg Tablet 75 Mcg PO DAILYAC Allergies Allergies: Coded Allergies: I S O L A T I O N *CONTACT* (Verified Allergy, Unknown, C-DIFF ISOLATION, 06/23/16) No Known Medication Allergies (Verified Allergy, Unknown, 06/24/16) Vitals VITALS Vital Signs Date Time Temp Pulse Resp B/P Pulse Ox O2 Delivery O2 Flow Rate FiO2 07/19/16 15:31 94.6 65 20 91/68 100 Nasal Cannula 2.0 94.6 Labs Labs Laboratory Tests Test 07/18/16 17:45 07/18/16 18:58 07/18/16 20:50 07/19/16 06:25 White Blood Count 16.0x10^3/uL (4.0-11.0) Red Blood Count 3.97x10^6/uL (4.30-5.70) Hemoglobin 11.0g/dL (13.0-17.5) Hematocrit 34.8% (39.0-53.0) Mean Corpuscular Volume 88fL (79-100) Mean Corpuscular Hemoglobin 28pg (25-35) Mean Corpuscular Hemoglobin Concent 32g/dL (31-37) Red Cell Distribution Width 17.6% (11.5-14.5) Platelet Count 103x10^3/uL (140-400) Neutrophils (%) (Auto) 89% (31-73) Lymphocytes (%) (Auto) 6% (24-48) Monocytes (%) (Auto) 4% (0-9) Eosinophils (%) (Auto) 1% (0-3) Basophils (%) (Auto) 0% (0-3) Neutrophils # (Auto) 14.3x10^3uL (1.8-7.7) Lymphocytes # (Auto) 1.0x10^3/uL (1.0-4.8) Monocytes # (Auto) 0.6x10^3/uL (0.0-1.1) Eosinophils # (Auto) 0.1x10^3/uL (0.0-0.7) Basophils # (Auto) 0.0x10^3/uL (0.0-0.2) Segmented Neutrophils % 81% (35-66) Band Neutrophils % 14% (0-9) Lymphocytes % 3% (24-48) Monocytes % 2% (0-10) Platelet Estimate Decreased (ADEQUATE) Polychromasia Slight Anisocytosis Slight Target Cells Few Shawn Cells Mod Crenated Cell Present Schistocytes Few Sodium Level 141mmol/L (136-145) 142mmol/L (136-145) Potassium Level 2.9mmol/L (3.5-5.1) 2.7mmol/L (3.5-5.1) Chloride Level 107mmol/L (98-107) 108mmol/L (98-107) Carbon Dioxide Level 26mmol/L (21-32) 24mmol/L (21-32) Anion Gap 8 (6-14) 10 (6-14) Blood Urea Nitrogen 30mg/dL (8-26) 34mg/dL (8-26) Creatinine 3.8mg/dL (0.7-1.3) 4.0mg/dL (0.7-1.3) Estimated GFR (Cockcroft-Gault) 19.9 18.8 BUN/Creatinine Ratio 8 (6-20) Glucose Level 129mg/dL (70-99) 84mg/dL (70-99) Calcium Level 8.2mg/dL (8.5-10.1) 7.8mg/dL (8.5-10.1) Magnesium Level 2.0mg/dL (1.8-2.4) 1.9mg/dL (1.8-2.4) Total Bilirubin 0.5mg/dL (0.2-1.0) Aspartate Amino Transf (AST/SGOT) 27U/L (15-37) Alanine Aminotransferase (ALT/SGPT) 16U/L (16-63) Alkaline Phosphatase 187U/L (46-116) Total Protein 6.0g/dL (6.4-8.2) Albumin 1.6g/dL (3.4-5.0) Albumin/Globulin Ratio 0.4 (1.0-1.7) Lactic Acid Level 1.7mmol/L (0.4-2.0) 1.7mmol/L (0.4-2.0) Test 07/19/16 09:50 07/19/16 11:15 07/19/16 16:32 White Blood Count 13.9x10^3/uL (4.0-11.0) Red Blood Count 3.95x10^6/uL (4.30-5.70) Hemoglobin 10.8g/dL (13.0-17.5) Hematocrit 34.4% (39.0-53.0) Mean Corpuscular Volume 87fL (79-100) Mean Corpuscular Hemoglobin 28pg (25-35) Mean Corpuscular Hemoglobin Concent 32g/dL (31-37) Red Cell Distribution Width 17.0% (11.5-14.5) Platelet Count 43x10^3/uL (140-400) Neutrophils (%) (Auto) 89% (31-73) Lymphocytes (%) (Auto) 6% (24-48) Monocytes (%) (Auto) 4% (0-9) Eosinophils (%) (Auto) 1% (0-3) Basophils (%) (Auto) 0% (0-3) Neutrophils # (Auto) 12.4x10^3uL (1.8-7.7) Lymphocytes # (Auto) 0.9x10^3/uL (1.0-4.8) Monocytes # (Auto) 0.5x10^3/uL (0.0-1.1) Eosinophils # (Auto) 0.1x10^3/uL (0.0-0.7) Basophils # (Auto) 0.0x10^3/uL (0.0-0.2) Platelet Estimate Decreased (ADEQUATE) Giant Platelets Present Glucose (Fingerstick) 84mg/dL (70-99) 113mg/dL (70-99) Laboratory Tests Test 07/18/16 17:45 07/18/16 18:58 07/18/16 20:50 07/19/16 06:25 White Blood Count 16.0x10^3/uL (4.0-11.0) Red Blood Count 3.97x10^6/uL (4.30-5.70) Hemoglobin 11.0g/dL (13.0-17.5) Hematocrit 34.8% (39.0-53.0) Mean Corpuscular Volume 88fL (79-100) Mean Corpuscular Hemoglobin 28pg (25-35) Mean Corpuscular Hemoglobin Concent 32g/dL (31-37) Red Cell Distribution Width 17.6% (11.5-14.5) Platelet Count 103x10^3/uL (140-400) Neutrophils (%) (Auto) 89% (31-73) Lymphocytes (%) (Auto) 6% (24-48) Monocytes (%) (Auto) 4% (0-9) Eosinophils (%) (Auto) 1% (0-3) Basophils (%) (Auto) 0% (0-3) Neutrophils # (Auto) 14.3x10^3uL (1.8-7.7) Lymphocytes # (Auto) 1.0x10^3/uL (1.0-4.8) Monocytes # (Auto) 0.6x10^3/uL (0.0-1.1) Eosinophils # (Auto) 0.1x10^3/uL (0.0-0.7) Basophils # (Auto) 0.0x10^3/uL (0.0-0.2) Segmented Neutrophils % 81% (35-66) Band Neutrophils % 14% (0-9) Lymphocytes % 3% (24-48) Monocytes % 2% (0-10) Platelet Estimate Decreased (ADEQUATE) Polychromasia Slight Anisocytosis Slight Target Cells Few [place] Cells Mod Crenated Cell Present Schistocytes Few Sodium Level 141mmol/L (136-145) 142mmol/L (136-145) Potassium Level 2.9mmol/L (3.5-5.1) 2.7mmol/L (3.5-5.1) Chloride Level 107mmol/L (98-107) 108mmol/L (98-107) Carbon Dioxide Level 26mmol/L (21-32) 24mmol/L (21-32) Anion Gap 8 (6-14) 10 (6-14) Blood Urea Nitrogen 30mg/dL (8-26) 34mg/dL (8-26) Creatinine 3.8mg/dL (0.7-1.3) 4.0mg/dL (0.7-1.3) Estimated GFR (Cockcroft-Gault) 19.9 18.8 BUN/Creatinine Ratio 8 (6-20) Glucose Level 129mg/dL (70-99) 84mg/dL (70-99) Calcium Level 8.2mg/dL (8.5-10.1) 7.8mg/dL (8.5-10.1) Magnesium Level 2.0mg/dL (1.8-2.4) 1.9mg/dL (1.8-2.4) Total Bilirubin 0.5mg/dL (0.2-1.0) Aspartate Amino Transf (AST/SGOT) 27U/L (15-37) Alanine Aminotransferase (ALT/SGPT) 16U/L (16-63) Alkaline Phosphatase 187U/L (46-116) Total Protein 6.0g/dL (6.4-8.2) Albumin 1.6g/dL (3.4-5.0) Albumin/Globulin Ratio 0.4 (1.0-1.7) Lactic Acid Level 1.7mmol/L (0.4-2.0) 1.7mmol/L (0.4-2.0) Test 07/19/16 09:50 07/19/16 11:15 07/19/16 16:32 White Blood Count 13.9x10^3/uL (4.0-11.0) Red Blood Count 3.95x10^6/uL (4.30-5.70) Hemoglobin 10.8g/dL (13.0-17.5) Hematocrit 34.4% (39.0-53.0) Mean Corpuscular Volume 87fL (79-100) Mean Corpuscular Hemoglobin 28pg (25-35) Mean Corpuscular Hemoglobin Concent 32g/dL (31-37) Red Cell Distribution Width 17.0% (11.5-14.5) Platelet Count 43x10^3/uL (140-400) Neutrophils (%) (Auto) 89% (31-73) Lymphocytes (%) (Auto) 6% (24-48) Monocytes (%) (Auto) 4% (0-9) Eosinophils (%) (Auto) 1% (0-3) Basophils (%) (Auto) 0% (0-3) Neutrophils # (Auto) 12.4x10^3uL (1.8-7.7) Lymphocytes # (Auto) 0.9x10^3/uL (1.0-4.8) Monocytes # (Auto) 0.5x10^3/uL (0.0-1.1) Eosinophils # (Auto) 0.1x10^3/uL (0.0-0.7) Basophils # (Auto) 0.0x10^3/uL (0.0-0.2) Platelet Estimate Decreased (ADEQUATE) Giant Platelets Present Glucose (Fingerstick) 84mg/dL (70-99) 113mg/dL (70-99) Assessment/Plan Assessment/Plan RENAL CONSULT / WILBER. Dictated. # [id number] Thank you. See orders. CARIE MERINO MD Jul 19, 2016 16:59
[2016-07-19] MEDS: CALCIUM ACETATE 667 MG CAPSULE PO SCH (17:07)
[2016-07-19] MEDS: CALCIUM CARB/VIT D3 500/200 TABLET PO SCH (17:07)
[2016-07-19 17:31] LABS: POTASSIUM 2.6 mmol/L (3.5-5.1)
[2016-07-19] MEDS: POTASSIUM CHLORIDE 10MEQ 100 ML IV SCH ×3 (19:18→23:19)
[2016-07-19] MEDS: ALBUMIN HUMAN 25% 50 ML IV SCH (20:44)
[2016-07-19] MEDS ORDERED: DARBEPOETIN ALFA 60 MCG/0.3 ML DISP.SYRIN. SQ SCH (21:00)
[2016-07-19] MEDS ORDERED: NON FORMULARY ITEM (Ipratropium/Albuterol Sulfate (Combivent Respimat Inhal) 1 INH) IH SCH (21:00)
[2016-07-19] MEDS: ATORVASTATIN CALCIUM 10 MG TABLET. PO SCH (21:57)
[2016-07-19] MEDS: PANTOPRAZOLE 40 MG TABLET. PO SCH (21:57)
[2016-07-20] MEDS: AA 3%/ELECTROLYTE-TPN SOLN/GLY 1,000 ML IV SCH ×3 (00:18→17:08)
[2016-07-20] MEDS: POTASSIUM CHLORIDE 10MEQ 100 ML IV SCH (01:18)
--- NOTE | 2016-07-20 02:20 | CONS ---
DATE OF CONSULTATION: REASON FOR CONSULTATION: End-stage renal disease, need for chronic dialysis. HISTORY OF PRESENT ILLNESS: The patient is known to us from dialysis. I follow him there for outpatient dialysis needs which are Wednesday, Wednesday and Wednesday. He goes to the [facility]. Hospitalized after [facility], he is a resident, found him to be more lethargic and tired. Apparently, he has been having some diarrhea over the last several days, not eating and drinking well. Some abdominal cramps, low-grade fever, almost like flu-like symptoms. Labs were obtained and his potassium was 2.4. He also had his ascites addressed with a paracentesis a day ago. With all of the above, he was transferred to the Emergency Room and hence hospitalized. He has had an admission for sepsis in 04/2016. Currently, somewhat confused. No chest pain, shortness of breath. No palpitations. No dysphagia or odynophagia. Otherwise, doing okay. PAST MEDICAL HISTORY: Significant for: 1. Hypertension. 2. Type 2 diabetes with nephropathy. 3. ESRD secondary to hypertension and diabetic nephrosclerosis. 4. COPD. 5. Severe malnutrition. 6. Anemia of chronic kidney failure. 7. History of hepatitis B, C and cirrhosis with recurrent ascites. 8. Gout. 9. Peripheral vascular disease. 10. Hyperparathyroidism, most likely to renal failure. 11. Hypothyroidism. PAST SURGICAL HISTORY: 1. Dialysis access placements. 2. Several paracentesis. REVIEW OF SYSTEMS: As best could be obtained as above, otherwise negative on a 10-point scale. FAMILY HISTORY: Cannot be obtained. SOCIAL HISTORY: No tobacco or alcohol. Previous use of cocaine. PHYSICAL EXAMINATION: GENERAL: Middle-aged gentleman, appears in no distress, but is somewhat confused. VITAL SIGNS: Stable. He is afebrile. HEENT: Pupils reactive. Tongue midline. NECK: Supple. LUNGS: Clear. CARDIOVASCULAR: Regular rate and rhythm, no rub. ABDOMEN: Soft, nontender. EXTREMITIES: No edema. NEUROLOGIC: Currently confused, otherwise moves all four extremities. LABORATORY DATA: Sodium 142, potassium 2.7, chloride 108, bicarbonate 24, BUN of 34, creatinine of 4. White count is 14, hemoglobin 10.8, hematocrit 34, platelet count is 43. IMPRESSION: 1. ESRD. 2. Hypokalemia, likely due to diarrhea and paracentesis. 3. Mental status change, fatigue secondary to above. 4. Hypertension, diabetes with nephropathy. PLAN: At this point, would continue with replacement of potassium. Dialysis per schedule. Discussed with the patient. Supportive care. Monitor intake and output. Monitor labs. May require some Procalamine or nutrition in the meantime. Thank you very much for the consultation. I appreciate the referral. We will follow. CARIE MERINO MD DR: ANKUSH/melissa JOB#: [id number] / [id number]
[2016-07-20 02:59] VITALS: BP 92/70
[2016-07-20] MEDS: PIPERACILLIN/TAZOBACTAM 2.25 GM in IV NORMAL SALINE 50ML 50 ML IV SCH ×3 (06:19→20:59)
[2016-07-20] MEDS: METRONIDAZOLE 500 MG TABLET. PO SCH ×3 (06:23→20:58)
[2016-07-20 07:00] VITALS: BP 86/57
[2016-07-20] MEDS: IPRATRPIUM/ALBUTEROL 0.5/2.5MG 3 ML NEBU. NEB SCH ×2 (07:20→18:20)
[2016-07-20] MEDS: ALBUMIN HUMAN 25% 50 ML IV SCH (07:25)
[2016-07-20 08:07] LABS: BASO % 1 % (0-3); EOS % 1 % (0-3); HEMATOCRIT 30.5 % (39.0-53.0); HEMOGLOBIN 9.6 g/dL (13.0-17.5); LYMPH # 0.7 x10^3/uL (1.0-4.8); LYMPH % 7 % (24-48); MEAN CORPUSCULAR HEMOGLOBIN 28 pg (25-35); MEAN CORPUSCULAR HGB CONC 32 g/dL (31-37); MEAN CORPUSCULAR VOLUME 89 fL (79-100); MONO % 4 % (0-9); NEUT % 88 % (31-73); PLATELET COUNT 38 x10^3/uL (140-400); RED BLOOD COUNT 3.44 x10^6/uL (4.30-5.70); RED CELL DISTRIBUTION WIDTH 17.2 % (11.5-14.5); WHITE BLOOD COUNT 10.6 x10^3/uL (4.0-11.0)
[2016-07-20 08:28] LABS: ALBUMIN 1.8 g/dL (3.4-5.0); ALBUMIN/GLOBULIN RATIO 0.5 (1.0-1.7); CALCIUM 7.7 mg/dL (8.5-10.1); CREATININE 4.8 mg/dL (0.7-1.3); GFR 15.2; PHOSPHORUS 3.1 mg/dL (2.6-4.7); POTASSIUM 3.6 mmol/L (3.5-5.1); TOTAL BILIRUBIN 0.5 mg/dL (0.2-1.0); TOTAL PROTEIN 5.1 g/dL (6.4-8.2)
[2016-07-20] MEDS: PANTOPRAZOLE 40 MG TABLET. PO SCH ×2 (08:46→17:08)
[2016-07-20] MEDS: CALCIUM ACETATE 667 MG CAPSULE PO SCH ×3 (08:46→17:08)
[2016-07-20] MEDS: CALCIUM CARB/VIT D3 500/200 TABLET PO SCH ×2 (08:46→17:08)
[2016-07-20] MEDS: LEVOTHYROXINE 25 MCG TABLET. PO SCH (08:46)
[2016-07-20] MEDS: MULTIVITAMIN with MINERAL TABLET. PO SCH (08:47)
[2016-07-20] MEDS: TAMSULOSIN 0.4 MG CAP.ER.24H. PO SCH (08:47)
[2016-07-20] MEDS: ALLOPURINOL 100 MG TABLET. PO SCH (08:47)
[2016-07-20] MEDS: FOLIC ACID 1 MG TABLET PO SCH (08:48)
[2016-07-20] MEDS: OXYCODONE ER 15 MG TAB.ER.12H. PO SCH ×2 (08:48→20:58)
[2016-07-20] MEDS: SODIUM BICARBONATE 650 MG TABLET. PO SCH ×2 (08:48→20:57)
[2016-07-20] MEDS: INSULIN ASPART 300 UNITS/3 ML INSULN.PEN SQ SCH ×3 (09:07→17:00)
--- NOTE | 2016-07-20 09:53 | PDOC ---
Subjective: Subjective: Last GI consult 07/09/15. H/o cirrhosis 2/2 Hep C and alcohol w/ ascites and previous paracentesis. Additional PMH: ESRD on HD, DM, pancreatitis, C Diff, CHF, previous EGD and colonoscopy at . Seen during dialysis this morning - he does not answer any questions; h/o being uncooperative w/ staff. Dialysis nurse says he has offered no complaints to her. Also d/w RN on his regular floor. Objective: Vital Signs: Vital Signs Date Time Temp Pulse Resp B/P Pulse Ox O2 Delivery O2 Flow Rate FiO2 07/20/16 08:48 16 100 Room Air 3.0 07/20/16 07:00 97.9 70 86/57 97.9 Labs: Laboratory Tests Test 07/19/16 11:15 07/19/16 16:32 07/19/16 21:19 07/20/16 07:00 Glucose (Fingerstick) 84mg/dL 113mg/dL 104mg/dL White Blood Count 10.6x10^3/uL Red Blood Count 3.44x10^6/uL Hemoglobin 9.6g/dL Hematocrit 30.5% Mean Corpuscular Volume 89fL Mean Corpuscular Hemoglobin 28pg Mean Corpuscular Hemoglobin Concent 32g/dL Red Cell Distribution Width 17.2% Platelet Count 38x10^3/uL Neutrophils (%) (Auto) 88% Lymphocytes (%) (Auto) 7% Monocytes (%) (Auto) 4% Eosinophils (%) (Auto) 1% Basophils (%) (Auto) 1% Neutrophils # (Auto) 9.3x10^3uL Lymphocytes # (Auto) 0.7x10^3/uL Monocytes # (Auto) 0.4x10^3/uL Eosinophils # (Auto) 0.1x10^3/uL Basophils # (Auto) 0.0x10^3/uL Sodium Level 141mmol/L Potassium Level 3.6mmol/L Chloride Level 108mmol/L Carbon Dioxide Level 22mmol/L Anion Gap 11 Blood Urea Nitrogen 41mg/dL Creatinine 4.8mg/dL Estimated GFR (Cockcroft-Gault) 15.2 BUN/Creatinine Ratio 9 Glucose Level 188mg/dL Calcium Level 7.7mg/dL Phosphorus Level 3.1mg/dL Magnesium Level 2.0mg/dL Total Bilirubin 0.5mg/dL Aspartate Amino Transf (AST/SGOT) 20U/L Alanine Aminotransferase (ALT/SGPT) 17U/L Alkaline Phosphatase 199U/L Total Protein 5.1g/dL Albumin 1.8g/dL Albumin/Globulin Ratio 0.5 Test 07/20/16 07:36 Glucose (Fingerstick) 167mg/dL PE: GEN: NAD LUNGS: CTAB anteriorly HEART: RRR ABD: distended, ascites, probably tender NEURO/PSYCH: does not make eye contact or respond to questions A/P: Cirrhosis, recurrent ascites/paracentesis -Hep C, alcohol -last paracentesis earlier this month ESRD on HD -- Paracentesis has been discussed. Will place consult, check INR. SARAVANAN KEARNEY Jul 20, 2016 09:53
[2016-07-20] MEDS ORDERED: DIALYSIS PATIENT. MC PRN (10:15)
[2016-07-20] MEDS ORDERED: ALBUMIN HUMAN 25% 200 ML IV PRN (10:15)
--- NOTE | 2016-07-20 10:16 | PDOC ---
PROGRESS NOTES Chief Complaint Chief Complaint 1. Hypokalemia 2. ESRD ON HD MWF 3. Ascites with hep C, cirrhosis 4. leukocytosis 5. thrombocytopenia 2/2 cirrhosis 6. DM2 7 h/o CHF, diastolic, STABLE 8. HTN, NOW Hypotension 9. HLD 10. gout 11. severe malnutrition 12. hx drug and Etoh use, Cocaine, Marijuana 13. h/o cdiff 14. ANEMIA, with ESRD, cirrhosis PLAN HD per Nephrology Monitor CBC ON ZOSYN AND Vancomycin Renal dosing of vancomycin IR consult for paracentesis SSI PPN Overall prognosis is poor, consult palliative care, recurrent admission to the hospital labs reviewed. History of Present Illness History of Present Illness no fever no chills alert not responding question. Vitals Vitals Vital Signs Date Time Temp Pulse Resp B/P Pulse Ox O2 Delivery O2 Flow Rate FiO2 07/20/16 08:48 16 100 Room Air 3.0 07/20/16 07:00 97.9 70 86/57 97.9 Physical Exam General: Alert, Other (non coperative) Heart: Normal S1, Normal S2 Lungs: Clear Abdomen: Normal bowel sounds, Soft, Other (DISTENDED) Extremities: No clubbing Labs LABS Laboratory Tests Test 07/19/16 11:15 07/19/16 16:32 07/19/16 21:19 07/20/16 07:00 Glucose (Fingerstick) 84mg/dL (70-99) 113mg/dL (70-99) 104mg/dL (70-99) White Blood Count 10.6x10^3/uL (4.0-11.0) Red Blood Count 3.44x10^6/uL (4.30-5.70) Hemoglobin 9.6g/dL (13.0-17.5) Hematocrit 30.5% (39.0-53.0) Mean Corpuscular Volume 89fL (79-100) Mean Corpuscular Hemoglobin 28pg (25-35) Mean Corpuscular Hemoglobin Concent 32g/dL (31-37) Red Cell Distribution Width 17.2% (11.5-14.5) Platelet Count 38x10^3/uL (140-400) Neutrophils (%) (Auto) 88% (31-73) Lymphocytes (%) (Auto) 7% (24-48) Monocytes (%) (Auto) 4% (0-9) Eosinophils (%) (Auto) 1% (0-3) Basophils (%) (Auto) 1% (0-3) Neutrophils # (Auto) 9.3x10^3uL (1.8-7.7) Lymphocytes # (Auto) 0.7x10^3/uL (1.0-4.8) Monocytes # (Auto) 0.4x10^3/uL (0.0-1.1) Eosinophils # (Auto) 0.1x10^3/uL (0.0-0.7) Basophils # (Auto) 0.0x10^3/uL (0.0-0.2) Sodium Level 141mmol/L (136-145) Potassium Level 3.6mmol/L (3.5-5.1) Chloride Level 108mmol/L (98-107) Carbon Dioxide Level 22mmol/L (21-32) Anion Gap 11 (6-14) Blood Urea Nitrogen 41mg/dL (8-26) Creatinine 4.8mg/dL (0.7-1.3) Estimated GFR (Cockcroft-Gault) 15.2 BUN/Creatinine Ratio 9 (6-20) Glucose Level 188mg/dL (70-99) Calcium Level 7.7mg/dL (8.5-10.1) Phosphorus Level 3.1mg/dL (2.6-4.7) Magnesium Level 2.0mg/dL (1.8-2.4) Total Bilirubin 0.5mg/dL (0.2-1.0) Aspartate Amino Transf (AST/SGOT) 20U/L (15-37) Alanine Aminotransferase (ALT/SGPT) 17U/L (16-63) Alkaline Phosphatase 199U/L (46-116) Total Protein 5.1g/dL (6.4-8.2) Albumin 1.8g/dL (3.4-5.0) Albumin/Globulin Ratio 0.5 (1.0-1.7) Test 07/20/16 07:36 Glucose (Fingerstick) 167mg/dL (70-99) Assessment and Plan Assessmemt and Plan Problems Medical Problems: (1) Hypokalemia Status: Acute (2) Leukocytosis Status: Acute Problems: Comment Review of Relevant I have reviewed the following items дмитрий (where applicable) has been applied. Labs Laboratory Tests Test 07/18/16 17:45 07/18/16 18:58 07/18/16 20:50 07/19/16 06:25 White Blood Count 16.0x10^3/uL (4.0-11.0) Red Blood Count 3.97x10^6/uL (4.30-5.70) Hemoglobin 11.0g/dL (13.0-17.5) Hematocrit 34.8% (39.0-53.0) Mean Corpuscular Volume 88fL (79-100) Mean Corpuscular Hemoglobin 28pg (25-35) Mean Corpuscular Hemoglobin Concent 32g/dL (31-37) Red Cell Distribution Width 17.6% (11.5-14.5) Platelet Count 103x10^3/uL (140-400) Neutrophils (%) (Auto) 89% (31-73) Lymphocytes (%) (Auto) 6% (24-48) Monocytes (%) (Auto) 4% (0-9) Eosinophils (%) (Auto) 1% (0-3) Basophils (%) (Auto) 0% (0-3) Neutrophils # (Auto) 14.3x10^3uL (1.8-7.7) Lymphocytes # (Auto) 1.0x10^3/uL (1.0-4.8) Monocytes # (Auto) 0.6x10^3/uL (0.0-1.1) Eosinophils # (Auto) 0.1x10^3/uL (0.0-0.7) Basophils # (Auto) 0.0x10^3/uL (0.0-0.2) Segmented Neutrophils % 81% (35-66) Band Neutrophils % 14% (0-9) Lymphocytes % 3% (24-48) Monocytes % 2% (0-10) Platelet Estimate Decreased (ADEQUATE) Polychromasia Slight Anisocytosis Slight Target Cells Few [place] Cells Mod Crenated Cell Present Schistocytes Few Sodium Level 141mmol/L (136-145) 143mmol/L (136-145) Potassium Level 2.9mmol/L (3.5-5.1) 2.6mmol/L (3.5-5.1) Chloride Level 107mmol/L (98-107) 108mmol/L (98-107) Carbon Dioxide Level 26mmol/L (21-32) 24mmol/L (21-32) Anion Gap 8 (6-14) 11 (6-14) Blood Urea Nitrogen 30mg/dL (8-26) 34mg/dL (8-26) Creatinine 3.8mg/dL (0.7-1.3) 4.0mg/dL (0.7-1.3) Estimated GFR (Cockcroft-Gault) 19.9 18.8 BUN/Creatinine Ratio 8 (6-20) Glucose Level 129mg/dL (70-99) 84mg/dL (70-99) Calcium Level 8.2mg/dL (8.5-10.1) 7.8mg/dL (8.5-10.1) Magnesium Level 2.0mg/dL (1.8-2.4) 1.9mg/dL (1.8-2.4) Total Bilirubin 0.5mg/dL (0.2-1.0) Aspartate Amino Transf (AST/SGOT) 27U/L (15-37) Alanine Aminotransferase (ALT/SGPT) 16U/L (16-63) Alkaline Phosphatase 187U/L (46-116) Total Protein 6.0g/dL (6.4-8.2) Albumin 1.6g/dL (3.4-5.0) Albumin/Globulin Ratio 0.4 (1.0-1.7) Lactic Acid Level 1.7mmol/L (0.4-2.0) 1.7mmol/L (0.4-2.0) Test 07/19/16 06:57 07/19/16 09:50 07/19/16 11:15 07/19/16 16:32 Nasal Screen MRSA (PCR) Negative (Negative) White Blood Count 13.9x10^3/uL (4.0-11.0) Red Blood Count 3.95x10^6/uL (4.30-5.70) Hemoglobin 10.8g/dL (13.0-17.5) Hematocrit 34.4% (39.0-53.0) Mean Corpuscular Volume 87fL (79-100) Mean Corpuscular Hemoglobin 28pg (25-35) Mean Corpuscular Hemoglobin Concent 32g/dL (31-37) Red Cell Distribution Width 17.0% (11.5-14.5) Platelet Count 43x10^3/uL (140-400) Neutrophils (%) (Auto) 89% (31-73) Lymphocytes (%) (Auto) 6% (24-48) Monocytes (%) (Auto) 4% (0-9) Eosinophils (%) (Auto) 1% (0-3) Basophils (%) (Auto) 0% (0-3) Neutrophils # (Auto) 12.4x10^3uL (1.8-7.7) Lymphocytes # (Auto) 0.9x10^3/uL (1.0-4.8) Monocytes # (Auto) 0.5x10^3/uL (0.0-1.1) Eosinophils # (Auto) 0.1x10^3/uL (0.0-0.7) Basophils # (Auto) 0.0x10^3/uL (0.0-0.2) Platelet Estimate Decreased (ADEQUATE) Giant Platelets Present Glucose (Fingerstick) 84mg/dL (70-99) 113mg/dL (70-99) Test 07/19/16 21:19 07/20/16 07:00 07/20/16 07:36 Glucose (Fingerstick) 104mg/dL (70-99) 167mg/dL (70-99) White Blood Count 10.6x10^3/uL (4.0-11.0) Red Blood Count 3.44x10^6/uL (4.30-5.70) Hemoglobin 9.6g/dL (13.0-17.5) Hematocrit 30.5% (39.0-53.0) Mean Corpuscular Volume 89fL (79-100) Mean Corpuscular Hemoglobin 28pg (25-35) Mean Corpuscular Hemoglobin Concent 32g/dL (31-37) Red Cell Distribution Width 17.2% (11.5-14.5) Platelet Count 38x10^3/uL (140-400) Neutrophils (%) (Auto) 88% (31-73) Lymphocytes (%) (Auto) 7% (24-48) Monocytes (%) (Auto) 4% (0-9) Eosinophils (%) (Auto) 1% (0-3) Basophils (%) (Auto) 1% (0-3) Neutrophils # (Auto) 9.3x10^3uL (1.8-7.7) Lymphocytes # (Auto) 0.7x10^3/uL (1.0-4.8) Monocytes # (Auto) 0.4x10^3/uL (0.0-1.1) Eosinophils # (Auto) 0.1x10^3/uL (0.0-0.7) Basophils # (Auto) 0.0x10^3/uL (0.0-0.2) Sodium Level 141mmol/L (136-145) Potassium Level 3.6mmol/L (3.5-5.1) Chloride Level 108mmol/L (98-107) Carbon Dioxide Level 22mmol/L (21-32) Anion Gap 11 (6-14) Blood Urea Nitrogen 41mg/dL (8-26) Creatinine 4.8mg/dL (0.7-1.3) Estimated GFR (Cockcroft-Gault) 15.2 BUN/Creatinine Ratio 9 (6-20) Glucose Level 188mg/dL (70-99) Calcium Level 7.7mg/dL (8.5-10.1) Phosphorus Level 3.1mg/dL (2.6-4.7) Magnesium Level 2.0mg/dL (1.8-2.4) Total Bilirubin 0.5mg/dL (0.2-1.0) Aspartate Amino Transf (AST/SGOT) 20U/L (15-37) Alanine Aminotransferase (ALT/SGPT) 17U/L (16-63) Alkaline Phosphatase 199U/L (46-116) Total Protein 5.1g/dL (6.4-8.2) Albumin 1.8g/dL (3.4-5.0) Albumin/Globulin Ratio 0.5 (1.0-1.7) Laboratory Tests Test 07/19/16 11:15 07/19/16 16:32 07/19/16 21:19 07/20/16 07:00 Glucose (Fingerstick) 84mg/dL (70-99) 113mg/dL (70-99) 104mg/dL (70-99) White Blood Count 10.6x10^3/uL (4.0-11.0) Red Blood Count 3.44x10^6/uL (4.30-5.70) Hemoglobin 9.6g/dL (13.0-17.5) Hematocrit 30.5% (39.0-53.0) Mean Corpuscular Volume 89fL (79-100) Mean Corpuscular Hemoglobin 28pg (25-35) Mean Corpuscular Hemoglobin Concent 32g/dL (31-37) Red Cell Distribution Width 17.2% (11.5-14.5) Platelet Count 38x10^3/uL (140-400) Neutrophils (%) (Auto) 88% (31-73) Lymphocytes (%) (Auto) 7% (24-48) Monocytes (%) (Auto) 4% (0-9) Eosinophils (%) (Auto) 1% (0-3) Basophils (%) (Auto) 1% (0-3) Neutrophils # (Auto) 9.3x10^3uL (1.8-7.7) Lymphocytes # (Auto) 0.7x10^3/uL (1.0-4.8) Monocytes # (Auto) 0.4x10^3/uL (0.0-1.1) Eosinophils # (Auto) 0.1x10^3/uL (0.0-0.7) Basophils # (Auto) 0.0x10^3/uL (0.0-0.2) Sodium Level 141mmol/L (136-145) Potassium Level 3.6mmol/L (3.5-5.1) Chloride Level 108mmol/L (98-107) Carbon Dioxide Level 22mmol/L (21-32) Anion Gap 11 (6-14) Blood Urea Nitrogen 41mg/dL (8-26) Creatinine 4.8mg/dL (0.7-1.3) Estimated GFR (Cockcroft-Gault) 15.2 BUN/Creatinine Ratio 9 (6-20) Glucose Level 188mg/dL (70-99) Calcium Level 7.7mg/dL (8.5-10.1) Phosphorus Level 3.1mg/dL (2.6-4.7) Magnesium Level 2.0mg/dL (1.8-2.4) Total Bilirubin 0.5mg/dL (0.2-1.0) Aspartate Amino Transf (AST/SGOT) 20U/L (15-37) Alanine Aminotransferase (ALT/SGPT) 17U/L (16-63) Alkaline Phosphatase 199U/L (46-116) Total Protein 5.1g/dL (6.4-8.2) Albumin 1.8g/dL (3.4-5.0) Albumin/Globulin Ratio 0.5 (1.0-1.7) Test 07/20/16 07:36 Glucose (Fingerstick) 167mg/dL (70-99) Microbiology 07/18/16 Blood Culture - Preliminary, Resulted NO GROWTH AFTER 1 DAY Medications Current Medications Sodium Chloride (Iv Sodium Chloride 0.9% 500ml Bag) 500 ml @ 500 mls/hr 1X ONCE IV Last administered on 07/18/16 17:45; Start 07/18/16 at 17:45; Stop at 18:44; Status DC Vancomycin HCl (Vanco Per Pharmacy) 1 each PRN DAILY PRN MC SEE COMMENTS Last administered on 07/19/16 13:18; Start 07/18/16 at 18:30 Piperacillin Sod/ Tazobactam Sod 1 each 1 each PRN DAILY PRN MC SEE COMMENTS; Start 07/18/16 at 18:30 Vancomycin HCl/ Sodium Chloride (Iv Sodium Chloride 0.9% 500ml Bag) 500 ml @ 250 mls/hr 1X ONCE IV Last administered on 07/18/16 21:17; Start 07/18/16 at 18:45; Stop 07/18/16 at 20:44; Status DC Potassium Chloride 40 meq 40 meq 1X ONCE PO Last administered on 07/18/16 19: 05; Start 07/18/16 at 18:45; Stop 07/18/16 at 18:46; Status DC Piperacillin Sod/ Tazobactam Sod/ Sodium Chloride (Zosyn/Iv Sodium Chloride 0.9 % 50ml) 50 ml @ 100 mls/hr ONCE ONCE IV Last administered on 07/18/16 19:05 ; Start 07/18/16 at 18:45; Stop 07/18/16 at 19:14; Status DC Ondansetron HCl (Zofran) 4 mg PRN Q8HRS PRN IV NAUSEA/VOMITING; Start 07/18/16 at 18:45; Stop 07/19/16 at 18:44; Status DC Morphine Sulfate 2 mg PRN Q2HR PRN IV PAIN Last administered on 07/19/16 10:36 ; Start 07/18/16 at 18:45; Stop 07/19/16 at 13:25; Status DC Insulin Aspart (Novolog) 0-7 UNITS TIDWMEALS SQ Last administered on 07/20/16 09:07; Start 07/19/16 at 08:00 Dextrose 12.5 gm 12.5 gm PRN Q15MIN PRN IV SEE COMMENTS; Start 07/18/16 at 18: 45 Piperacillin Sod/ Tazobactam Sod/ Sodium Chloride (Zosyn/Iv Sodium Chloride 0.9 % 50ml) 50 ml @ 100 mls/hr Q8HRS IV Last administered on 07/20/16 06:19; Start 07/19/16 at 06:00 Vancomycin HCl 1 each 1X ONCE MC ; Start 07/20/16 at 20:00; Stop 07/20/16 at 20 :01 Info (Do NOT chart on this placeholder) 1 each PRN DAILY PRN MC STATUS UNKNOWN ; Start 07/19/16 at 05:30; Status Cancel Pneumococcal Polyvalent Vaccine (Do NOT chart on this placeholder) 1 each PRN DAILY PRN MC STATUS UNKNOWN; Start 07/19/16 at 05:30; Status Cancel Potassium Chloride (Klor-Con) 40 meq 1X ONCE PO Last administered on 07:45; Start 07/19/16 at 07:45; Stop 07/19/16 at 07:46; Status DC Potassium Chloride (Klor-Con) 20 meq 1X ONCE PO Last administered on 07:45; Start 07/19/16 at 07:45; Stop 07/19/16 at 07:46; Status DC Acetaminophen (Tylenol) 650 mg PRN Q4HRS PRN PO PAIN; Start 07/19/16 at 12:45 Allopurinol (Zyloprim) 100 mg DAILY PO Last administered on 07/20/16 08:47; Start 07/19/16 at 13:00 Atorvastatin Calcium (Lipitor) 10 mg QHS PO Last administered on 07/19/16 21: 57; Start 07/19/16 at 21:00 Calcium Acetate (Phoslo) 667 mg TIDWMEALS PO Last administered on 07/20/16 08: 46; Start 07/19/16 at 17:00 Darbepoetin Aaron (Aranesp) 60 mcg Faith SQ Last administered on 07/19/16 22:04; Start 07/19/16 at 21:00 Folic Acid (Folic Acid) 1 mg DAILY PO Last administered on 07/20/16 08:48; Start 07/19/16 at 13:00 Levothyroxine Sodium (Synthroid) 75 mcg DAILY07 PO Last administered on 08:46; Start 07/20/16 at 07:30 Oxycodone HCl (Oxycontin) 15 mg BID PO Last administered on 07/20/16 08:48; Start 07/19/16 at 13:00 Pantoprazole Sodium (Protonix) 40 mg BIDBFRMEAL PO Last administered on 08:46; Start 07/19/16 at 21:00 Phytonadione (Mephyton) 10 mg DAILY PO Last administered on 07/19/16 12:59; Start 07/19/16 at 13:00; Stop 07/19/16 at 14:18; Status DC Sodium Bicarbonate (Sodium Bicarbonate) 650 mg BID PO Last administered on 07/20 08:48; Start 07/19/16 at 13:00 Tamsulosin HCl (Flomax) 0.4 mg DAILY PO Last administered on 07/20/16 08:47; Start 07/19/16 at 13:00 Calcium/Vitamin D (Oscal D 500mg/ 200uts) 1 tab BIDWMEALS PO Last administered on 07/20/16 08:46; Start 07/19/16 at 17:00 Non-Formulary Medication 1 inh BID IH ; Start 07/19/16 at 21:00; Stop 07/19/16 at 21:00; Status DC Multivitamins/ Calcium (Thera M Plus) 1 tab DAILY PO Last administered on 08:47; Start 07/19/16 at 13:00 Oxycodone HCl (Roxicodone) 15 mg PRN Q3HRS PRN PO SEVERE PAIN; Start 07/19/16 at 13:00 Spironolactone (Aldactone) 50 mg DAILY PO ; Start 07/20/16 at 13:00 Acetaminophen (Tylenol) 650 mg PRN Q6HRS PRN PO MILD PAIN / TEMP; Start at 12:45; Stop 07/19/16 at 12:47; Status DC Ondansetron HCl (Zofran) 4 mg PRN Q6HRS PRN IV NAUSEA/VOMITING; Start 07/19/16 at 12:45 Morphine Sulfate 2 mg PRN Q2HR PRN IV PAIN; Start 07/19/16 at 12:45 Morphine Sulfate 4 mg PRN Q2HR PRN IV PAIN; Start 07/19/16 at 12:45 Metronidazole 500 mg 500 mg Q8HRS PO Last administered on 07/20/16 06:23; Start 07/19/16 at 14:00 Sodium Chloride 500 ml @ 500 mls/hr 1X ONCE IV ; Start 07/19/16 at 12:45; Stop 07/19/16 at 12:49; Status DC Albumin Human (Albuminar) 100 ml @ 100 mls/hr 1X ONCE IV Last administered on 07/19/16 12:58; Start 07/19/16 at 13:00; Stop 07/19/16 at 13:59; Status DC Albuterol/ Ipratropium 3 ml 3 ml BID NEB Last administered on 07/20/16 07:20; Start 07/19/16 at 13:00 Albumin Human 50 ml @ 50 mls/hr DAILY07 IV Last administered on 07/20/16 07:25 ; Start 07/19/16 at 17:00; Stop 07/22/16 at 16:59 Amino Acids/ Glycerin/ Electrolytes 1,000 ml @ 80 mls/hr [id number] IV Last administered on 07/20/16 00:18; Start 07/19/16 at 17:00 Potassium Chloride 100 ml @ 100 mls/hr Q1H IV Last administered on 07/20/16 01:18; Start 07/19/16 at 17:45; Stop 07/19/16 at 21:44; Status DC Albumin Human (Albuminar) 200 ml @ 200 mls/hr 1X PRN PRN IV Hypotension; Start 07/20/16 at 10:15; Stop 07/20/16 at 16:14; Status UNV Info (PHARMACY MONITORING -- do not chart) 1 each PRN DAILY PRN MC SEE COMMENTS ; Start 07/20/16 at 10:15; Status UNV Active Scripts Active Reported Keflex (Cephalexin) 500 Mg Capsule 1 Cap PO TID 7 Days Imodium A-D (Loperamide HCl) 2 Mg Capsule 2 Mg PO PRN Q6HRS PRN Acidophilus Lactobacillus (Lactobacillus Acidophilus) 1 Each Capsule 1 Each PO DAILY Furosemide 40 Mg Tablet 40 Mg PO DAILY Aranesp Syringe (Darbepoetin Aaron In Polysorbat) 60 Mcg/0.3 Ml Disp.syrin 60 Mcg SQ WEEKLY Mephyton (Phytonadione) 5 Mg Tablet 10 Mg PO DAILY Phoslo (Calcium Acetate) 667 Mg Capsule 2 Cap PO TIDWMEALS Allopurinol 100 Mg Tablet 1 Tab PO DAILY Spironolactone 50 Mg Tablet 50 Mg PO DAILY Oxycontin (Oxycodone HCl) 15 Mg Tab.er.12h 15 Mg PO BID Oxycodone Hcl 5 Mg Capsule 15 Mg PO Q3HRS PRN Oyster Shell Calcium-Vit D Tab (Calcium Carbonate/Vitamin D2) 1 Each Tablet 1 Each PO BID Acidophilus Lactobacillus (Lactobacillus Acidophilus) 1 Each Capsule 1 Each PO DAILY Glucose Gel (Dextrose) 38 Gm Gel..gram. 38 Gm PO PRN PRN Glucagon Emergency Kit (Glucagon,Human Recombinant) 1 Mg Kit 1 Mg IM PRN Acetaminophen 325 Mg Tablet 650 Mg PO PRN Q4HRS PRN Tamsulosin Hcl 0.4 Mg Cap.er.24h 1 Cap PO DAILY Sodium Bicarbonate 650 Mg Tablet 1 Tab PO BID Protonix (Pantoprazole Sodium) 40 Mg Tablet.dr 1 Tab PO BID Multi-Vitamin Daily (Multivitamin) 1 Each Tablet 1 Each PO DAILY Isordil (Isosorbide Dinitrate) 40 Mg Tablet 40 Mg PO TID Combivent Respimat Inhal (Ipratropium/Albuterol Sulfate) 4 Gm Aer.w.adap 1 Inh IH BID Hydralazine Hcl 50 Mg Tablet 1 Tab PO TID sun, e, larissa, sat. Atorvastatin Calcium 10 Mg Tablet 1 Tab PO DAILY Amlodipine Besylate 5 Mg Tablet 5 Mg PO DAILY wed, wed, larissa, sat. hold if sbp is less than 110. call dr if sbp is > 170. Amiodarone Hcl 200 Mg Tablet 1 Tab PO DAILY Novolog Flexpen (Insulin Aspart) 100 Unit/1 Ml Insuln.pen 3 Unit SQ TIDAC Folic Acid 1 Mg Tablet 1 Mg PO DAILY Carvedilol 12.5 Mg Tablet 12.5 Mg PO BIDWMEALS sun, saade, larissa, sat. hold if sbp is 110. call dr if sbp is > 170. Levothyroxine Sodium 25 Mcg Tablet 75 Mcg PO DAILYAC Vitals/I & O Vital Sign - Last 24 Hours 07/19/16 07/19/16 07/19/16 07/19/16 10:36 11:00 11:06 13:00 Temp 97.4 97.4 Pulse 65 Resp 16 B/P 71/49 Pulse Ox 100 100 100 O2 Delivery Nasal Cannula Nasal Cannula Nasal Cannula Nasal Cannula O2 Flow Rate 2.0 2.0 2.0 2.0 07/19/16 07/19/16 07/19/16 07/19/16 14:59 15:31 17:00 20:00 Temp 94.6 94.6 Pulse 65 Resp 18 B/P 91/68 Pulse Ox 100 100 100 O2 Delivery Nasal Cannula Nasal Cannula Room Air Room Air O2 Flow Rate 3.0 2.0 2.0 3.0 07/19/16 07/19/16 07/19/16 07/19/16 20:30 20:32 20:38 22:01 Temp 97.4 97.4 Pulse 46 Resp 16 B/P 64/49 92/49 Pulse Ox 100 99 O2 Delivery Nasal Cannula Nasal Cannula O2 Flow Rate 2.0 3.0 3.0 07/19/16 07/20/16 07/20/16 07/20/16 23:16 02:59 07:00 07:24 Temp 97.4 97.3 97.9 97.4 97.3 97.9 Pulse 63 66 70 Resp 18 18 18 B/P 91/61 92/70 86/57 Pulse Ox 100 100 100 100 O2 Delivery Nasal Cannula Nasal Cannula Nasal Cannula O2 Flow Rate 2.0 2.0 2.0 3.0 07/20/16 08:48 Resp 16 Pulse Ox 100 O2 Delivery Room Air O2 Flow Rate 3.0 Intake and Output 07/19/16 07/19/16 07/20/16 15:00 23:00 07:00 Intake Total 460 ml 390 ml Output Total 0 ml Balance 460 ml 390 ml ANISA SCHMITT MD Jul 20, 2016 10:16
[2016-07-20 10:46] LABS: INR 1.7 (0.8-1.1); PROTHROMBIN TIME PATIENT 18.9 SEC (11.7-14.0)
--- NOTE | 2016-07-20 11:27 | PDOC ---
Renal-Progress Notes Subjective Notes Notes NONE History of Present Illness Hx of present illness NO CHANGE Vitals Vitals Vital Signs Date Time Temp Pulse Resp B/P Pulse Ox O2 Delivery O2 Flow Rate FiO2 07/20/16 08:48 16 100 Room Air 3.0 07/20/16 07:00 97.9 70 86/57 97.9 Weight Weight [ ] I.O. Intake and Output Intake and Output 07/20/16 07:00 Intake Total 850 ml Output Total 0 ml Balance 850 ml Intake Oral 850 ml Output Urine Total 0 ml # Voids 1 # Bowel Movements 11 Labs Labs Laboratory Tests Test 07/19/16 16:32 07/19/16 21:19 07/20/16 07:00 07/20/16 07:36 Glucose (Fingerstick) 113mg/dL (70-99) 104mg/dL (70-99) 167mg/dL (70-99) White Blood Count 10.6x10^3/uL (4.0-11.0) Red Blood Count 3.44x10^6/uL (4.30-5.70) Hemoglobin 9.6g/dL (13.0-17.5) Hematocrit 30.5% (39.0-53.0) Mean Corpuscular Volume 89fL (79-100) Mean Corpuscular Hemoglobin 28pg (25-35) Mean Corpuscular Hemoglobin Concent 32g/dL (31-37) Red Cell Distribution Width 17.2% (11.5-14.5) Platelet Count 38x10^3/uL (140-400) Neutrophils (%) (Auto) 88% (31-73) Lymphocytes (%) (Auto) 7% (24-48) Monocytes (%) (Auto) 4% (0-9) Eosinophils (%) (Auto) 1% (0-3) Basophils (%) (Auto) 1% (0-3) Neutrophils # (Auto) 9.3x10^3uL (1.8-7.7) Lymphocytes # (Auto) 0.7x10^3/uL (1.0-4.8) Monocytes # (Auto) 0.4x10^3/uL (0.0-1.1) Eosinophils # (Auto) 0.1x10^3/uL (0.0-0.7) Basophils # (Auto) 0.0x10^3/uL (0.0-0.2) Prothrombin Time 18.9SEC (11.7-14.0) Prothromb Time International Ratio 1.7 (0.8-1.1) Sodium Level 141mmol/L (136-145) Potassium Level 3.6mmol/L (3.5-5.1) Chloride Level 108mmol/L (98-107) Carbon Dioxide Level 22mmol/L (21-32) Anion Gap 11 (6-14) Blood Urea Nitrogen 41mg/dL (8-26) Creatinine 4.8mg/dL (0.7-1.3) Estimated GFR (Cockcroft-Gault) 15.2 BUN/Creatinine Ratio 9 (6-20) Glucose Level 188mg/dL (70-99) Calcium Level 7.7mg/dL (8.5-10.1) Phosphorus Level 3.1mg/dL (2.6-4.7) Magnesium Level 2.0mg/dL (1.8-2.4) Total Bilirubin 0.5mg/dL (0.2-1.0) Aspartate Amino Transf (AST/SGOT) 20U/L (15-37) Alanine Aminotransferase (ALT/SGPT) 17U/L (16-63) Alkaline Phosphatase 199U/L (46-116) Total Protein 5.1g/dL (6.4-8.2) Albumin 1.8g/dL (3.4-5.0) Albumin/Globulin Ratio 0.5 (1.0-1.7) Micro Micro Microbiology 07/18/16 Blood Culture - Preliminary, Resulted NO GROWTH AFTER 1 DAY Review of Systems Constitutional: yes: alert, oriented, weakness Ears/Nose/Throat: Yes: no symptom reported Eyes: Yes: no symptom reported Gastrointestional: Yes: no symptom reported Musculoskeletal: Yes: muscle atrophy, muscle stiffness Physical Exam General Appearance: no apparent distress Skin: warm Respiratory: decreased breath sounds Heart: S1S2, RRR Abdomen: soft, bowel sounds present Genitourinary: bladder flat Neurology: alert, oriented Musculoskeletal: Osteoarthritis Assessment Assessment IMP ESRD ANEMIA ASCITES HYPOTENSION PLAN HD TODAY UF TO DW GI EVAL AND TX WILL FOLLOW ADRIAN PANCHAL MD Jul 20, 2016 11:27
[2016-07-20] MEDS: SPIRONOLACTONE 25 MG TABLET PO SCH (13:10)
[2016-07-20 15:00] VITALS: BP 103/74
--- NOTE | 2016-07-20 16:49 | PDOC2 ---
PALLIATIVE CARE Palliative Care Note Palliative Care Consult requested by Dr. Soriano to address Hospice. Patient drowsy. Difficult to understand verbal communication. Diagnosis: ESRD--dialysis; Hep C. ascites, leukocytosis; DM, CHF, anemia, history of drug and ETOH use, hx. c-diff. Code Status: Full code. Attempted to reach sister---Blanca --no answer. Patient is a resident of [facility] Jul 20, 2016 16:49
[2016-07-20 19:45] VITALS: BP 102/72
[2016-07-20] MEDS ORDERED: VANCOMYCIN RANDOM LEVEL. MC ONE (20:00)
[2016-07-20] MEDS: VANCOMYCIN PER PHARMACY MC PRN (20:37)
[2016-07-20] MEDS: ATORVASTATIN CALCIUM 10 MG TABLET. PO SCH (20:57)
[2016-07-20] MEDS ORDERED: VANCOMYCIN 500 MG in IV NORMAL SALINE 100ML 100 ML IV SCH (21:00)
[2016-07-20 22:51] VITALS: BP 93/68
[2016-07-21] VITALS (16 sets, daily range): BP systolic 78–124; BP diastolic 54–74
[2016-07-21] MEDS: PIPERACILLIN/TAZOBACTAM 2.25 GM in IV NORMAL SALINE 50ML 50 ML IV SCH (06:18)
[2016-07-21] MEDS: METRONIDAZOLE 500 MG TABLET. PO SCH (06:19)
[2016-07-21] MEDS: INSULIN ASPART 300 UNITS/3 ML INSULN.PEN SQ SCH ×3 (08:00→17:10)
[2016-07-21] MEDS: IPRATRPIUM/ALBUTEROL 0.5/2.5MG 3 ML NEBU. NEB SCH ×2 (08:31→19:15)
--- NOTE | 2016-07-21 08:46 | PDOC ---
Infectious Disease Note ROS ROS GEN: Denies fevers, chills, sweats HEENT: Denies blurred vision, sore throat CV: Denies chest pain RESP: Denies shortness of air, cough GI: Denies n/v/d NEURO: Denies confusion, dizziness MSK: Denies weakness, joint pain/swelling Vital Sign Vital Signs Vital Signs Date Time Temp Pulse Resp B/P Pulse Ox O2 Delivery O2 Flow Rate FiO2 07/21/16 07:29 98.2 74 20 96/71 100 Room Air 98.2 07/21/16 01:00 2.0 Physical Exam PHYSICAL EXAM GENERAL: NAD, Alert HEENT: PERRL, OC/OP NECK: Supple, no JVD, no LN LUNGS: Clear HEART: S1S2, no gallop, no murmur ABD: Soft, NT, no organomegaly, no rebound EXT: No edema, no cyanosis [employer]: Alert, oriented x 3, no focal neurologic deficit SKIN: No rash IV: ok Labs Lab Laboratory Tests Test 07/20/16 16:47 07/20/16 19:50 07/20/16 21:40 07/21/16 07:33 Glucose (Fingerstick) 74mg/dL (70-99) 124mg/dL (70-99) 164mg/dL (70-99) Random Vancomycin Level 14.1mcg/mL Objective Assessment Hypothermia C-diff + 07/19 Ascites CKD - on HD Thrombocytopenia Plan Plan of Care Begin po Vanc D/c IV Vanc/Zosyn/Flagyl Await Paracentesis F/u on labs Thank you # [id number] LEXA MAYFIELD MD Jul 21, 2016 08:46
[2016-07-21] MEDS: SPIRONOLACTONE 25 MG TABLET PO SCH (09:03)
[2016-07-21] MEDS: MULTIVITAMIN with MINERAL TABLET. PO SCH (09:03)
[2016-07-21] MEDS: ALLOPURINOL 100 MG TABLET. PO SCH (09:03)
[2016-07-21] MEDS: LEVOTHYROXINE 25 MCG TABLET. PO SCH (09:04)
[2016-07-21] MEDS: OXYCODONE ER 15 MG TAB.ER.12H. PO SCH ×2 (09:04→20:19)
[2016-07-21] MEDS: CALCIUM ACETATE 667 MG CAPSULE PO SCH ×3 (09:05→17:09)
[2016-07-21] MEDS: SODIUM BICARBONATE 650 MG TABLET. PO SCH ×2 (09:05→20:19)
[2016-07-21] MEDS: CALCIUM CARB/VIT D3 500/200 TABLET PO SCH ×2 (09:05→17:09)
[2016-07-21] MEDS: PANTOPRAZOLE 40 MG TABLET. PO SCH ×2 (09:05→17:09)
[2016-07-21] MEDS: TAMSULOSIN 0.4 MG CAP.ER.24H. PO SCH (09:05)
[2016-07-21] MEDS: FOLIC ACID 1 MG TABLET PO SCH (09:05)
[2016-07-21] MEDS: AA 3%/ELECTROLYTE-TPN SOLN/GLY 1,000 ML IV SCH ×2 (09:18→20:18)
[2016-07-21] MEDS: VANCOMYCIN 125 MG/2.5 ML ORAL SOLUTION. PO SCH ×4 (09:19→20:18)
[2016-07-21] MEDS: ALBUMIN HUMAN 25% 50 ML IV SCH (09:19)
--- NOTE | 2016-07-21 09:46 | PDOC ---
Subjective: Subjective: Pt makes a small nod in response to my question re: abd pain but otherwise doesn 't speak, make eye contact, etc. Objective: Objective: Note multiple stools charted. Vital Signs: Vital Signs Date Time Temp Pulse Resp B/P Pulse Ox O2 Delivery O2 Flow Rate FiO2 07/21/16 09:04 18 100 Nasal Cannula 2.0 07/21/16 07:29 98.2 74 96/71 98.2 Labs: Laboratory Tests Test 07/20/16 16:47 07/20/16 19:50 07/20/16 21:40 07/21/16 07:33 Glucose (Fingerstick) 74mg/dL 124mg/dL 164mg/dL Random Vancomycin Level 14.1mcg/mL PE: GEN: NAD ABD: BS+, distended NEURO/PSYCH: A & O 3 A/P: Cirrhosis, recurrent ascites/paracentesis -Hep C, alcohol -thrombocytopenia C Diff -ID following, on oral vanc ESRD on HD -- Awaiting paracentesis. SARAVANAN KEARNEY Jul 21, 2016 09:46
--- NOTE | 2016-07-21 10:15 | PDOC ---
PROGRESS NOTES Chief Complaint Chief Complaint 1. Hypothermia, c diff positive 07/19 2. ESRD ON HD MWF 3. Ascites with hep C, cirrhosis 4. leukocytosis 5. thrombocytopenia 2/2 cirrhosis 6. DM2 7 h/o CHF, diastolic, STABLE 8. HTN, NOW Hypotension 9. HLD 10. gout 11. severe malnutrition 12. hx drug and Etoh use, Cocaine, Marijuana 13. C DIFF 14. ANEMIA, with ESRD, cirrhosis PLAN HD per Nephrology Monitor CBC AND BMP PO Vancomycin IR consult for paracentesis, planning for today SSI PPN Overall prognosis is poor, consult palliative care, recurrent admission to the hospital labs reviewed. GI and ID following. History of Present Illness History of Present Illness no fever no chills alert responding question. Vitals Vitals Vital Signs Date Time Temp Pulse Resp B/P Pulse Ox O2 Delivery O2 Flow Rate FiO2 07/21/16 09:04 18 100 Nasal Cannula 2.0 07/21/16 07:29 98.2 74 96/71 98.2 Physical Exam General: Alert, Other (non coperative) Heart: Normal S1, Normal S2 Lungs: Clear Abdomen: Normal bowel sounds, Soft, Other (DISTENDED) Extremities: No clubbing Labs LABS Laboratory Tests Test 07/20/16 16:47 07/20/16 19:50 07/20/16 21:40 07/21/16 07:33 Glucose (Fingerstick) 74mg/dL (70-99) 124mg/dL (70-99) 164mg/dL (70-99) Random Vancomycin Level 14.1mcg/mL Assessment and Plan Assessmemt and Plan Problems Medical Problems: (1) Hypokalemia Status: Acute (2) Leukocytosis Status: Acute Problems: Comment Review of Relevant I have reviewed the following items дмитрий (where applicable) has been applied. Labs Laboratory Tests Test 07/19/16 11:15 07/19/16 15:00 07/19/16 16:32 07/19/16 21:19 Glucose (Fingerstick) 84mg/dL (70-99) 113mg/dL (70-99) 104mg/dL (70-99) Clostridium difficile Toxin (PCR) Positive (Negative) Test 07/20/16 07:00 07/20/16 07:36 07/20/16 16:47 07/20/16 19:50 White Blood Count 10.6x10^3/uL (4.0-11.0) Red Blood Count 3.44x10^6/uL (4.30-5.70) Hemoglobin 9.6g/dL (13.0-17.5) Hematocrit 30.5% (39.0-53.0) Mean Corpuscular Volume 89fL (79-100) Mean Corpuscular Hemoglobin 28pg (25-35) Mean Corpuscular Hemoglobin Concent 32g/dL (31-37) Red Cell Distribution Width 17.2% (11.5-14.5) Platelet Count 38x10^3/uL (140-400) Neutrophils (%) (Auto) 88% (31-73) Lymphocytes (%) (Auto) 7% (24-48) Monocytes (%) (Auto) 4% (0-9) Eosinophils (%) (Auto) 1% (0-3) Basophils (%) (Auto) 1% (0-3) Neutrophils # (Auto) 9.3x10^3uL (1.8-7.7) Lymphocytes # (Auto) 0.7x10^3/uL (1.0-4.8) Monocytes # (Auto) 0.4x10^3/uL (0.0-1.1) Eosinophils # (Auto) 0.1x10^3/uL (0.0-0.7) Basophils # (Auto) 0.0x10^3/uL (0.0-0.2) Prothrombin Time 18.9SEC (11.7-14.0) Prothromb Time International Ratio 1.7 (0.8-1.1) Sodium Level 141mmol/L (136-145) Potassium Level 3.6mmol/L (3.5-5.1) Chloride Level 108mmol/L (98-107) Carbon Dioxide Level 22mmol/L (21-32) Anion Gap 11 (6-14) Blood Urea Nitrogen 41mg/dL (8-26) Creatinine 4.8mg/dL (0.7-1.3) Estimated GFR (Cockcroft-Gault) 15.2 BUN/Creatinine Ratio 9 (6-20) Glucose Level 188mg/dL (70-99) Calcium Level 7.7mg/dL (8.5-10.1) Phosphorus Level 3.1mg/dL (2.6-4.7) Magnesium Level 2.0mg/dL (1.8-2.4) Total Bilirubin 0.5mg/dL (0.2-1.0) Aspartate Amino Transf (AST/SGOT) 20U/L (15-37) Alanine Aminotransferase (ALT/SGPT) 17U/L (16-63) Alkaline Phosphatase 199U/L (46-116) Total Protein 5.1g/dL (6.4-8.2) Albumin 1.8g/dL (3.4-5.0) Albumin/Globulin Ratio 0.5 (1.0-1.7) Glucose (Fingerstick) 167mg/dL (70-99) 74mg/dL (70-99) Random Vancomycin Level 14.1mcg/mL Test 07/20/16 21:40 07/21/16 07:33 Glucose (Fingerstick) 124mg/dL (70-99) 164mg/dL (70-99) Laboratory Tests Test 07/20/16 16:47 07/20/16 19:50 07/20/16 21:40 07/21/16 07:33 Glucose (Fingerstick) 74mg/dL (70-99) 124mg/dL (70-99) 164mg/dL (70-99) Random Vancomycin Level 14.1mcg/mL Microbiology 07/18/16 Blood Culture - Preliminary, Resulted NO GROWTH AFTER 2 DAYS Medications Current Medications Sodium Chloride (Iv Sodium Chloride 0.9% 500ml Bag) 500 ml @ 500 mls/hr 1X ONCE IV Last administered on 07/18/16 17:45; Start 07/18/16 at 17:45; Stop at 18:44; Status DC Vancomycin HCl (Vanco Per Pharmacy) 1 each PRN DAILY PRN MC SEE COMMENTS Last administered on 07/20/16 20:37; Start 07/18/16 at 18:30; Stop 07/21/16 at 08:34 ; Status DC Piperacillin Sod/ Tazobactam Sod 1 each 1 each PRN DAILY PRN MC SEE COMMENTS; Start 07/18/16 at 18:30; Stop 07/21/16 at 08:34; Status DC Vancomycin HCl/ Sodium Chloride (Iv Sodium Chloride 0.9% 500ml Bag) 500 ml @ 250 mls/hr 1X ONCE IV Last administered on 07/18/16 21:17; Start 07/18/16 at 18:45; Stop 07/18/16 at 20:44; Status DC Potassium Chloride 40 meq 40 meq 1X ONCE PO Last administered on 07/18/16 19: 05; Start 07/18/16 at 18:45; Stop 07/18/16 at 18:46; Status DC Piperacillin Sod/ Tazobactam Sod/ Sodium Chloride (Zosyn/Iv Sodium Chloride 0.9 % 50ml) 50 ml @ 100 mls/hr ONCE ONCE IV Last administered on 07/18/16 19:05 ; Start 07/18/16 at 18:45; Stop 07/18/16 at 19:14; Status DC Ondansetron HCl (Zofran) 4 mg PRN Q8HRS PRN IV NAUSEA/VOMITING; Start 07/18/16 at 18:45; Stop 07/19/16 at 18:44; Status DC Morphine Sulfate 2 mg PRN Q2HR PRN IV PAIN Last administered on 07/19/16 10:36 ; Start 07/18/16 at 18:45; Stop 07/19/16 at 13:25; Status DC Insulin Aspart (Novolog) 0-7 UNITS TIDWMEALS SQ Last administered on 07/20/16 09:07; Start 07/19/16 at 08:00 Dextrose 12.5 gm 12.5 gm PRN Q15MIN PRN IV SEE COMMENTS; Start 07/18/16 at 18: 45 Piperacillin Sod/ Tazobactam Sod/ Sodium Chloride (Zosyn/Iv Sodium Chloride 0.9 % 50ml) 50 ml @ 100 mls/hr Q8HRS IV Last administered on 07/21/16 06:18; Start 07/19/16 at 06:00; Stop 07/21/16 at 08:34; Status DC Vancomycin HCl 1 each 1X ONCE MC Last administered on 07/20/16 21:57; Start 07/20/16 at 20:00; Stop 07/20/16 at 20:01; Status DC Info (Do NOT chart on this placeholder) 1 each PRN DAILY PRN MC STATUS UNKNOWN ; Start 07/19/16 at 05:30; Status Cancel Pneumococcal Polyvalent Vaccine (Do NOT chart on this placeholder) 1 each PRN DAILY PRN MC STATUS UNKNOWN; Start 07/19/16 at 05:30; Status Cancel Potassium Chloride (Klor-Con) 40 meq 1X ONCE PO Last administered on 07:45; Start 07/19/16 at 07:45; Stop 07/19/16 at 07:46; Status DC Potassium Chloride (Klor-Con) 20 meq 1X ONCE PO Last administered on 07:45; Start 07/19/16 at 07:45; Stop 07/19/16 at 07:46; Status DC Acetaminophen (Tylenol) 650 mg PRN Q4HRS PRN PO PAIN; Start 07/19/16 at 12:45 Allopurinol (Zyloprim) 100 mg DAILY PO Last administered on 07/21/16 09:03; Start 07/19/16 at 13:00 Atorvastatin Calcium (Lipitor) 10 mg QHS PO Last administered on 07/20/16 20: 57; Start 07/19/16 at 21:00 Calcium Acetate (Phoslo) 667 mg TIDWMEALS PO Last administered on 07/21/16 09: 05; Start 07/19/16 at 17:00 Darbepoetin Aaron (Aranesp) 60 mcg Faiht SQ Last administered on 07/19/16 22:04; Start 07/19/16 at 21:00 Folic Acid (Folic Acid) 1 mg DAILY PO Last administered on 07/21/16 09:05; Start 07/19/16 at 13:00 Levothyroxine Sodium (Synthroid) 75 mcg DAILY07 PO Last administered on 09:04; Start 07/20/16 at 07:30 Oxycodone HCl (Oxycontin) 15 mg BID PO Last administered on 07/21/16 09:04; Start 07/19/16 at 13:00 Pantoprazole Sodium (Protonix) 40 mg BIDBFRMEAL PO Last administered on 09:05; Start 07/19/16 at 21:00 Phytonadione (Mephyton) 10 mg DAILY PO Last administered on 07/19/16 12:59; Start 07/19/16 at 13:00; Stop 07/19/16 at 14:18; Status DC Sodium Bicarbonate (Sodium Bicarbonate) 650 mg BID PO Last administered on 07/21 09:05; Start 07/19/16 at 13:00 Tamsulosin HCl (Flomax) 0.4 mg DAILY PO Last administered on 07/21/16 09:05; Start 07/19/16 at 13:00 Calcium/Vitamin D (Oscal D 500mg/ 200uts) 1 tab BIDWMEALS PO Last administered on 07/21/16 09:05; Start 07/19/16 at 17:00 Non-Formulary Medication 1 inh BID IH ; Start 07/19/16 at 21:00; Stop 07/19/16 at 21:00; Status DC Multivitamins/ Calcium (Thera M Plus) 1 tab DAILY PO Last administered on 09:03; Start 07/19/16 at 13:00 Oxycodone HCl (Roxicodone) 15 mg PRN Q3HRS PRN PO SEVERE PAIN Last administered on 07/20/16 20:58; Start 07/19/16 at 13:00 Spironolactone (Aldactone) 50 mg DAILY PO Last administered on 07/21/16 09:03 ; Start 07/20/16 at 13:00 Acetaminophen (Tylenol) 650 mg PRN Q6HRS PRN PO MILD PAIN / TEMP; Start at 12:45; Stop 07/19/16 at 12:47; Status DC Ondansetron HCl (Zofran) 4 mg PRN Q6HRS PRN IV NAUSEA/VOMITING; Start 07/19/16 at 12:45 Morphine Sulfate 2 mg PRN Q2HR PRN IV PAIN Last administered on 07/20/16 20:58 ; Start 07/19/16 at 12:45 Morphine Sulfate 4 mg PRN Q2HR PRN IV PAIN; Start 07/19/16 at 12:45 Metronidazole 500 mg 500 mg Q8HRS PO Last administered on 07/20/16 20:58; Start 07/19/16 at 14:00; Stop 07/21/16 at 08:34; Status DC Sodium Chloride 500 ml @ 500 mls/hr 1X ONCE IV ; Start 07/19/16 at 12:45; Stop 07/19/16 at 12:49; Status DC Albumin Human (Albuminar) 100 ml @ 100 mls/hr 1X ONCE IV Last administered on 07/19/16 12:58; Start 07/19/16 at 13:00; Stop 07/19/16 at 13:59; Status DC Albuterol/ Ipratropium 3 ml 3 ml BID NEB Last administered on 07/21/16 08:31; Start 07/19/16 at 13:00 Albumin Human 50 ml @ 50 mls/hr [id number] IV Last administered on 07/21/16 09:19 ; Start 07/19/16 at 17:00; Stop 07/22/16 at 16:59 Amino Acids/ Glycerin/ Electrolytes 1,000 ml @ 80 mls/hr [id number] IV Last administered on 07/21/16 09:18; Start 07/19/16 at 17:00 Potassium Chloride 100 ml @ 100 mls/hr Q1H IV Last administered on 07/20/16 01:18; Start 07/19/16 at 17:45; Stop 07/19/16 at 21:44; Status DC Albumin Human (Albuminar) 200 ml @ 200 mls/hr 1X PRN PRN IV Hypotension Last administered on 07/20/16 10:29; Start 07/20/16 at 10:15; Stop 07/20/16 at 16:14 ; Status DC Info 1 each 1 each PRN DAILY PRN MC SEE COMMENTS; Start 07/20/16 at 10:15 Vancomycin HCl/ Sodium Chloride (Iv Sodium Chloride 0.9% 100ml) 100 ml @ 100 mls/hr QMWF IV Last administered on 07/20/16 21:57; Start 07/20/16 at 21:00; Stop 07/21/16 at 08:34; Status DC Vancomycin HCl 125 mg [id number] PO Last administered on 07/21/16 09:19; Start at 09:00 Active Scripts Active Reported Keflex (Cephalexin) 500 Mg Capsule 1 Cap PO TID 7 Days Imodium A-D (Loperamide HCl) 2 Mg Capsule 2 Mg PO PRN Q6HRS PRN Acidophilus Lactobacillus (Lactobacillus Acidophilus) 1 Each Capsule 1 Each PO DAILY Furosemide 40 Mg Tablet 40 Mg PO DAILY Aranesp Syringe (Darbepoetin Aaron In Polysorbat) 60 Mcg/0.3 Ml Disp.syrin 60 Mcg SQ WEEKLY Mephyton (Phytonadione) 5 Mg Tablet 10 Mg PO DAILY Phoslo (Calcium Acetate) 667 Mg Capsule 2 Cap PO TIDWMEALS Allopurinol 100 Mg Tablet 1 Tab PO DAILY Spironolactone 50 Mg Tablet 50 Mg PO DAILY Oxycontin (Oxycodone HCl) 15 Mg Tab.er.12h 15 Mg PO BID Oxycodone Hcl 5 Mg Capsule 15 Mg PO Q3HRS PRN Oyster Shell Calcium-Vit D Tab (Calcium Carbonate/Vitamin D2) 1 Each Tablet 1 Each PO BID Acidophilus Lactobacillus (Lactobacillus Acidophilus) 1 Each Capsule 1 Each PO DAILY Glucose Gel (Dextrose) 38 Gm Gel..gram. 38 Gm PO PRN PRN Glucagon Emergency Kit (Glucagon,Human Recombinant) 1 Mg Kit 1 Mg IM PRN Acetaminophen 325 Mg Tablet 650 Mg PO PRN Q4HRS PRN Tamsulosin Hcl 0.4 Mg Cap.er.24h 1 Cap PO DAILY Sodium Bicarbonate 650 Mg Tablet 1 Tab PO BID Protonix (Pantoprazole Sodium) 40 Mg Tablet.dr 1 Tab PO BID Multi-Vitamin Daily (Multivitamin) 1 Each Tablet 1 Each PO DAILY Isordil (Isosorbide Dinitrate) 40 Mg Tablet 40 Mg PO TID Combivent Respimat Inhal (Ipratropium/Albuterol Sulfate) 4 Gm Aer.w.adap 1 Inh IH BID Hydralazine Hcl 50 Mg Tablet 1 Tab PO TID wed, wed, sat. Atorvastatin Calcium 10 Mg Tablet 1 Tab PO DAILY Amlodipine Besylate 5 Mg Tablet 5 Mg PO DAILY wed, wed, sat. hold if sbp is less than 110. call dr if sbp is > 170. Amiodarone Hcl 200 Mg Tablet 1 Tab PO DAILY Novolog Flexpen (Insulin Aspart) 100 Unit/1 Ml Insuln.pen 3 Unit SQ TIDAC Folic Acid 1 Mg Tablet 1 Mg PO DAILY Carvedilol 12.5 Mg Tablet 12.5 Mg PO BIDWMEALS wed, wed, sat. hold if sbp is 110. call dr if sbp is > 170. Levothyroxine Sodium 25 Mcg Tablet 75 Mcg PO DAILYAC Vitals/I & O Vital Sign - Last 24 Hours 07/20/16 07/20/16 07/20/16 07/20/16 13:11 15:00 19:45 20:00 Temp 97.8 97.7 97.8 97.7 Pulse 74 80 Resp 16 18 18 B/P 103/74 102/72 Pulse Ox 100 99 100 O2 Delivery Nasal Cannula Nasal Cannula Nasal Cannula O2 Flow Rate 2.0 2.0 3.0 07/20/16 07/20/16 07/20/16 07/20/16 20:58 20:58 20:58 21:57 O2 Delivery Nasal Cannula Nasal Cannula Nasal Cannula Nasal Cannula O2 Flow Rate 2.0 2.0 2.0 2.0 07/20/16 07/20/16 07/21/16 07/21/16 21:57 22:51 01:00 02:50 Temp 97.7 97.5 97.7 97.5 Pulse 83 74 Resp 18 18 B/P 93/68 101/74 Pulse Ox 100 100 O2 Delivery Nasal Cannula Nasal Cannula Nasal Cannula Room Air O2 Flow Rate 2.0 2.0 2.0 07/21/16 07/21/16 07/21/16 07:29 08:32 09:04 Temp 98.2 98.2 Pulse 74 Resp 20 18 B/P 96/71 Pulse Ox 100 100 100 O2 Delivery Room Air Nasal Cannula Nasal Cannula O2 Flow Rate 4.0 2.0 Intake and Output 07/20/16 07/20/16 07/21/16 15:00 23:00 07:00 Intake Total 1000 ml 0 ml Output Total 2 ml Balance 998 ml 0 ml ANISA SCHMITT MD Jul 21, 2016 10:15
--- NOTE | 2016-07-21 10:34 | PDOC ---
Renal-Progress Notes Subjective Notes Notes NONE History of Present Illness Hx of present illness NO CHANGE Vitals Vitals Vital Signs Date Time Temp Pulse Resp B/P Pulse Ox O2 Delivery O2 Flow Rate FiO2 07/21/16 09:04 18 100 Nasal Cannula 2.0 07/21/16 07:29 98.2 74 96/71 98.2 Weight Weight [ ] I.O. Intake and Output Intake and Output 07/21/16 07:00 Intake Total 1000 ml Output Total 2 ml Balance 998 ml Intake Oral 300 ml IV Total 700 ml Output Urine Total 2 ml # Bowel Movements 3 Labs Labs Laboratory Tests Test 07/20/16 16:47 07/20/16 19:50 07/20/16 21:40 07/21/16 07:33 Glucose (Fingerstick) 74mg/dL (70-99) 124mg/dL (70-99) 164mg/dL (70-99) Random Vancomycin Level 14.1mcg/mL Micro Micro Microbiology 07/18/16 Blood Culture - Preliminary, Resulted NO GROWTH AFTER 2 DAYS Review of Systems Constitutional: yes: alert, oriented, weakness Ears/Nose/Throat: Yes: no symptom reported Eyes: Yes: no symptom reported Gastrointestional: Yes: no symptom reported Musculoskeletal: Yes: muscle atrophy, muscle stiffness Physical Exam General Appearance: no apparent distress Skin: warm Respiratory: decreased breath sounds Heart: S1S2, RRR Abdomen: soft, bowel sounds present Genitourinary: bladder flat Neurology: alert, oriented Musculoskeletal: Osteoarthritis Assessment Assessment IMP ESRD ANEMIA ASCITES HYPOTENSION C DIF PLAN HD TOMORROW GI EVAL AND TX ID EVAL AND TX WILL FOLLOW ADRIAN PANCHAL MD Jul 21, 2016 10:34
--- NOTE | 2016-07-21 12:04 | CONS ---
DATE OF CONSULTATION: 07/21/2016 ROOM: 664. REQUESTING PHYSICIAN: Manuel Mondragon DO. REASON FOR CONSULTATION: C. difficile. HISTORY OF PRESENT ILLNESS: The patient is a 56-year-old gentleman with a history of chronic kidney disease, lives in the [facility], who has a history of dementia, hepatitis and cirrhosis, and also history of alcohol liver disease. He was brought to [facility] secondary to the mental status change according to the notes on the 07/18. He also came in with hypokalemia with potassium of 2.4. He is somewhat of a poor historian, but according to the note, he complaints have generalized weakness all day. During his admission, he has been hypothermic. His white blood cell count was 16.0 at the time of presentation. He was started on IV vancomycin and Zosyn as well as oral metronidazole. His white blood cell count has improved to 10.6 yesterday, C. diff was positive on the ; hence, I have been consulted. Currently, the patient is lying in bed, he is fairly comfortable. He is complaining that his oxygen is loose, but now states that he is doing okay; again, he is somewhat a poor historian and a question of his review of systems capability, but he denies any pain, no fevers, chills or sweats, no shortness of air or cough. PAST MEDICAL HISTORY: Positive for congestive heart failure, hypertension, hyperlipidemia, COPD, dementia, cirrhosis secondary to alcohol as well as hepatitis C, osteoarthrosis, gout, diabetes, hypothyroidism, and chronic kidney disease on dialysis. PAST SURGICAL HISTORY: He does have a right chest hemodialysis catheter placement, uncertain of the other meds. REVIEW OF SYSTEMS: Otherwise, negative except for what as mentioned above. ALLERGIES: No known drug allergies. SOCIAL HISTORY: Again, he is a jail resident, has a history of previous alcohol, cocaine and tobacco abuse. FAMILY HISTORY: Noncontributory. CURRENT MEDICATIONS: Include Zosyn, IV vancomycin, oral metronidazole, Lipitor, allopurinol, Synthroid, Protonix, spironolactone, and insulin. Other meds are available and have been reviewed in the chart. PHYSICAL EXAMINATION: VITAL SIGNS: Temperatures have been as low as 94.6; currently 98.2, pulse 74, respirations 20, blood pressure 96/71, satting 100%, he is on 2 L nasal cannula. CONSTITUTIONAL: He is cooperative. He is in no acute distress. He is wearing nasal cannula oxygen. HEENT: Pupils are equal and reactive. The oral cavity and pharynx is dry. Poor dentition. NECK: Supple, no JVD. LUNGS: Decreased in the bases. HEART: S1 and S2. ABDOMEN: Distended with positive bowel. He has a hemodialysis catheter on the right chest without signs of any complications. EXTREMITIES: Bilateral lower extremity edema at approximately 1+. SKIN: Warm to touch without rash. NEUROLOGIC: He did respond to questions, moves his extremities. PSYCHIATRIC: Affect is flat. LABORATORY VALUES: White count 10.6 on the , hemoglobin 9.6, and platelets of 38. Neutrophils of 88. Most recent creatinine of 4.8, glucose fingerstick today is 164. AST 20, ALT 17, alkaline phosphatase 199, albumin of 1.8. Blood cultures from the are negative. Chest x-ray from the , some streaky bibasilar atelectasis. IMPRESSION: 1. Hypothermia. 2. Clostridium difficile positive from the . 3. Ascites. 4. Chronic kidney disease on hemodialysis. 5. Thrombocytopenia. RECOMMENDATIONS: Begin p.o. vancomycin 125 q.i.d. Discontinue IV vancomycin, Zosyn and Flagyl. Await paracentesis. We will follow up on labs. Dr. Thomas, thank you for allowing me to see and participate in this patient's care. Should you have any further questions, please do not hesitate to contact me. LEXA MAYFIELD MD DR: JADE/melissa JOB#: [id number] / [id number]
[2016-07-21] MEDS ORDERED: LIDOCAINE 1% / SOD BICARB 8.4% 20 ML VIAL. IJ ONE ×2 (14:51→15:15)
[2016-07-21] MEDS ORDERED: ALBUMIN HUMAN 25% 200 ML IV ONE (15:24)
[2016-07-21] MEDS ORDERED: ALBUMIN HUMAN 25% 100 ML IV ONE ×2 (15:30→16:30)
--- NOTE | 2016-07-21 15:34 | PDOC ---
Exam Hog Tender Hog Tender Dennis Card Tape Converter Operator Card Tape Converter Operator B Cates Pre-Procedure Diagnosis Pre-Procedure Diagnosis 56 YO male with cirrhosis, Hep C, ESRD, CHF, and massive recurrent/refractory ascites. Post-Procedure Diagnosis Post-Procedure Diagnosis Same Procedure Performed Procedure Performed Sono guided Tx paracentesis Type of Anesthesia Type of Anesthesia Local only Estimated Blood Loss EBL: Trace Specimens Specimans 10,250 cc straw-clear ascites removed---samples to lab for culture and cell count Condition of Patient Condition of Patient Stable. No apparent complication. Infusion of 50 grams 25% albumin initiated during paracentesis procedure. Disposition Disposition From IR return to Critical access hospital. Full report to follow. KYM FUNK MD Jul 21, 2016 15:34
[2016-07-21] MEDS: ATORVASTATIN CALCIUM 10 MG TABLET. PO SCH (20:18)
[2016-07-21] MEDS ORDERED: INSULIN ASPART 300 UNITS/3 ML INSULN.PEN SQ ONE (22:30)
[2016-07-22 03:00] VITALS: BP 95/67
[2016-07-22 04:52] LABS: BASO % 1 % (0-3); EOS % 2 % (0-3); HEMATOCRIT 28.9 % (39.0-53.0); LYMPH # 0.5 x10^3/uL (1.0-4.8); LYMPH % 9 % (24-48); MEAN CORPUSCULAR HEMOGLOBIN 28 pg (25-35); MEAN CORPUSCULAR HGB CONC 31 g/dL (31-37); MEAN CORPUSCULAR VOLUME 91 fL (79-100); MONO % 6 % (0-9); NEUT % 83 % (31-73); RED BLOOD COUNT 3.19 x10^6/uL (4.30-5.70); RED CELL DISTRIBUTION WIDTH 17.8 % (11.5-14.5); WHITE BLOOD COUNT 5.6 x10^3/uL (4.0-11.0)
[2016-07-22 05:05] LABS: PLATELET COUNT 24 x10^3/uL (140-400)
[2016-07-22 05:54] LABS: CALCIUM 7.6 mg/dL (8.5-10.1); CREATININE 4.4 mg/dL (0.7-1.3); GFR 16.8; POTASSIUM 3.4 mmol/L (3.5-5.1)
[2016-07-22] MEDS: LEVOTHYROXINE 25 MCG TABLET. PO SCH (06:01)
[2016-07-22] MEDS: ALBUMIN HUMAN 25% 50 ML IV SCH (06:02)
[2016-07-22 07:00] VITALS: BP 90/60
--- NOTE | 2016-07-22 07:09 | RAD ---
Ultrasound-guided therapeutic paracentesis Indication: 56-year-old male with history of cirrhosis, hepatitis C, end-stage renal disease, and congestive heart failure. Now with massive recurrent/refractory ascites. Anesthesia: Local only Procedure: Informed consent was obtained from the patient. This procedure was performed in the CT suite, with the patient in his hospital bed. Preliminary ultrasound examination confirmed the presence of a large volume of abdominal/pelvic ascites. A right abdominal peritoneal fluid collection, suitable for sono guided paracentesis, was selected, was marked, and was documented with a single hard copy ultrasound image. That area was then prepped and draped in the usual sterile fashion. Conscious sedation was provided with IV Versed and fentanyl. Using aseptic technique, local anesthesia, and direct ultrasound guidance, a 21-gauge micropuncture needle was successfully introduced into the selected peritoneal fluid collection. The 21-gauge needle was exchanged over a microguidewire for a micropuncture sheath, which was, in turn, exchanged over a 0.035 inch guidewire for a 6 [place] drainage catheter. Approximately 10,250 cc of straw-clear ascites was removed, and was discarded. The drainage catheter was then removed and a sterile dressing was applied. Patient tolerated the procedure well without apparent complication. Infusion of 50 g 25% albumin was initiated during the paracentesis procedure. Impression: Successful, uneventful ultrasound-guided therapeutic paracentesis, as described.
[2016-07-22] MEDS: AA 3%/ELECTROLYTE-TPN SOLN/GLY 1,000 ML IV SCH ×2 (07:30→20:49)
[2016-07-22] MEDS: IPRATRPIUM/ALBUTEROL 0.5/2.5MG 3 ML NEBU. NEB SCH ×2 (08:02→19:48)
[2016-07-22] MEDS: SODIUM BICARBONATE 650 MG TABLET. PO SCH ×2 (08:35→20:49)
[2016-07-22] MEDS: VANCOMYCIN 125 MG/2.5 ML ORAL SOLUTION. PO SCH ×4 (08:35→20:48)
[2016-07-22] MEDS: CALCIUM ACETATE 667 MG CAPSULE PO SCH ×3 (08:35→18:24)
[2016-07-22] MEDS: OXYCODONE ER 15 MG TAB.ER.12H. PO SCH ×2 (08:35→20:49)
[2016-07-22] MEDS: CALCIUM CARB/VIT D3 500/200 TABLET PO SCH ×2 (08:35→18:23)
[2016-07-22] MEDS: TAMSULOSIN 0.4 MG CAP.ER.24H. PO SCH (08:36)
[2016-07-22] MEDS: ALLOPURINOL 100 MG TABLET. PO SCH (08:36)
[2016-07-22] MEDS: MULTIVITAMIN with MINERAL TABLET. PO SCH (08:36)
[2016-07-22] MEDS: SPIRONOLACTONE 25 MG TABLET PO SCH (08:36)
[2016-07-22] MEDS: FOLIC ACID 1 MG TABLET PO SCH (08:36)
[2016-07-22] MEDS: PANTOPRAZOLE 40 MG TABLET. PO SCH ×2 (08:36→18:24)
[2016-07-22] MEDS: INSULIN ASPART 300 UNITS/3 ML INSULN.PEN SQ SCH ×3 (08:47→18:28)
--- NOTE | 2016-07-22 10:09 | PDOC ---
G I PROGRESS NOTE Subjective Says feels better after paracentesis. Little history otherwise. Physical Exam Essentially cachectic. Abdomen much less distended. Review of Relevant I have reviewed the following items дмитрий (where applicable) has been applied. Labs Laboratory Tests Test 07/20/16 16:47 07/20/16 19:50 07/20/16 21:40 07/21/16 07:33 Glucose (Fingerstick) 74mg/dL (70-99) 124mg/dL (70-99) 164mg/dL (70-99) Random Vancomycin Level 14.1mcg/mL Test 07/21/16 11:31 07/21/16 17:06 07/21/16 21:55 07/22/16 03:51 Glucose (Fingerstick) 179mg/dL (70-99) 152mg/dL (70-99) 318mg/dL (70-99) White Blood Count 5.6x10^3/uL (4.0-11.0) Red Blood Count 3.19x10^6/uL (4.30-5.70) Hemoglobin 9.0g/dL (13.0-17.5) Hematocrit 28.9% (39.0-53.0) Mean Corpuscular Volume 91fL (79-100) Mean Corpuscular Hemoglobin 28pg (25-35) Mean Corpuscular Hemoglobin Concent 31g/dL (31-37) Red Cell Distribution Width 17.8% (11.5-14.5) Platelet Count 24x10^3/uL (140-400) Neutrophils (%) (Auto) 83% (31-73) Lymphocytes (%) (Auto) 9% (24-48) Monocytes (%) (Auto) 6% (0-9) Eosinophils (%) (Auto) 2% (0-3) Basophils (%) (Auto) 1% (0-3) Neutrophils # (Auto) 4.7x10^3uL (1.8-7.7) Lymphocytes # (Auto) 0.5x10^3/uL (1.0-4.8) Monocytes # (Auto) 0.3x10^3/uL (0.0-1.1) Eosinophils # (Auto) 0.1x10^3/uL (0.0-0.7) Basophils # (Auto) 0.0x10^3/uL (0.0-0.2) Test 07/22/16 05:25 07/22/16 07:52 Sodium Level 137mmol/L (136-145) Potassium Level 3.4mmol/L (3.5-5.1) Chloride Level 104mmol/L (98-107) Carbon Dioxide Level 24mmol/L (21-32) Anion Gap 9 (6-14) Blood Urea Nitrogen 41mg/dL (8-26) Creatinine 4.4mg/dL (0.7-1.3) Estimated GFR (Cockcroft-Gault) 16.8 Glucose Level 176mg/dL (70-99) Calcium Level 7.6mg/dL (8.5-10.1) Glucose (Fingerstick) 226mg/dL (70-99) Laboratory Tests Test 07/21/16 11:31 07/21/16 17:06 07/21/16 21:55 07/22/16 03:51 Glucose (Fingerstick) 179mg/dL (70-99) 152mg/dL (70-99) 318mg/dL (70-99) White Blood Count 5.6x10^3/uL (4.0-11.0) Red Blood Count 3.19x10^6/uL (4.30-5.70) Hemoglobin 9.0g/dL (13.0-17.5) Hematocrit 28.9% (39.0-53.0) Mean Corpuscular Volume 91fL (79-100) Mean Corpuscular Hemoglobin 28pg (25-35) Mean Corpuscular Hemoglobin Concent 31g/dL (31-37) Red Cell Distribution Width 17.8% (11.5-14.5) Platelet Count 24x10^3/uL (140-400) Neutrophils (%) (Auto) 83% (31-73) Lymphocytes (%) (Auto) 9% (24-48) Monocytes (%) (Auto) 6% (0-9) Eosinophils (%) (Auto) 2% (0-3) Basophils (%) (Auto) 1% (0-3) Neutrophils # (Auto) 4.7x10^3uL (1.8-7.7) Lymphocytes # (Auto) 0.5x10^3/uL (1.0-4.8) Monocytes # (Auto) 0.3x10^3/uL (0.0-1.1) Eosinophils # (Auto) 0.1x10^3/uL (0.0-0.7) Basophils # (Auto) 0.0x10^3/uL (0.0-0.2) Test 07/22/16 05:25 07/22/16 07:52 Sodium Level 137mmol/L (136-145) Potassium Level 3.4mmol/L (3.5-5.1) Chloride Level 104mmol/L (98-107) Carbon Dioxide Level 24mmol/L (21-32) Anion Gap 9 (6-14) Blood Urea Nitrogen 41mg/dL (8-26) Creatinine 4.4mg/dL (0.7-1.3) Estimated GFR (Cockcroft-Gault) 16.8 Glucose Level 176mg/dL (70-99) Calcium Level 7.6mg/dL (8.5-10.1) Glucose (Fingerstick) 226mg/dL (70-99) Microbiology 07/18/16 Blood Culture - Preliminary, Resulted NO GROWTH AFTER 3 DAYS 07/21/16 Gram Stain - Final, Complete Medications Current Medications Sodium Chloride (Iv Sodium Chloride 0.9% 500ml Bag) 500 ml @ 500 mls/hr 1X ONCE IV Last administered on 07/18/16 17:45; Start 07/18/16 at 17:45; Stop at 18:44; Status DC Vancomycin HCl (Vanco Per Pharmacy) 1 each PRN DAILY PRN MC SEE COMMENTS Last administered on 07/20/16 20:37; Start 07/18/16 at 18:30; Stop 07/21/16 at 08:34 ; Status DC Piperacillin Sod/ Tazobactam Sod 1 each 1 each PRN DAILY PRN MC SEE COMMENTS; Start 07/18/16 at 18:30; Stop 07/21/16 at 08:34; Status DC Vancomycin HCl/ Sodium Chloride (Iv Sodium Chloride 0.9% 500ml Bag) 500 ml @ 250 mls/hr 1X ONCE IV Last administered on 07/18/16 21:17; Start 07/18/16 at 18:45; Stop 07/18/16 at 20:44; Status DC Potassium Chloride 40 meq 40 meq 1X ONCE PO Last administered on 07/18/16 19: 05; Start 07/18/16 at 18:45; Stop 07/18/16 at 18:46; Status DC Piperacillin Sod/ Tazobactam Sod/ Sodium Chloride (Zosyn/Iv Sodium Chloride 0.9 % 50ml) 50 ml @ 100 mls/hr ONCE ONCE IV Last administered on 07/18/16 19:05 ; Start 07/18/16 at 18:45; Stop 07/18/16 at 19:14; Status DC Ondansetron HCl (Zofran) 4 mg PRN Q8HRS PRN IV NAUSEA/VOMITING; Start 07/18/16 at 18:45; Stop 07/19/16 at 18:44; Status DC Morphine Sulfate 2 mg PRN Q2HR PRN IV PAIN Last administered on 07/19/16 10:36 ; Start 07/18/16 at 18:45; Stop 07/19/16 at 13:25; Status DC Insulin Aspart (Novolog) 0-7 UNITS TIDWMEALS SQ Last administered on 07/22/16 08:47; Start 07/19/16 at 08:00 Dextrose 12.5 gm 12.5 gm PRN Q15MIN PRN IV SEE COMMENTS; Start 07/18/16 at 18: 45 Piperacillin Sod/ Tazobactam Sod/ Sodium Chloride (Zosyn/Iv Sodium Chloride 0.9 % 50ml) 50 ml @ 100 mls/hr Q8HRS IV Last administered on 07/21/16 06:18; Start 07/19/16 at 06:00; Stop 07/21/16 at 08:34; Status DC Vancomycin HCl 1 each 1X ONCE MC Last administered on 07/20/16 21:57; Start 07/20/16 at 20:00; Stop 07/20/16 at 20:01; Status DC Info (Do NOT chart on this placeholder) 1 each PRN DAILY PRN MC STATUS UNKNOWN ; Start 07/19/16 at 05:30; Status Cancel Pneumococcal Polyvalent Vaccine (Do NOT chart on this placeholder) 1 each PRN DAILY PRN MC STATUS UNKNOWN; Start 07/19/16 at 05:30; Status Cancel Potassium Chloride (Klor-Con) 40 meq 1X ONCE PO Last administered on 07:45; Start 07/19/16 at 07:45; Stop 07/19/16 at 07:46; Status DC Potassium Chloride (Klor-Con) 20 meq 1X ONCE PO Last administered on 07:45; Start 07/19/16 at 07:45; Stop 07/19/16 at 07:46; Status DC Acetaminophen (Tylenol) 650 mg PRN Q4HRS PRN PO PAIN; Start 07/19/16 at 12:45 Allopurinol (Zyloprim) 100 mg DAILY PO Last administered on 07/22/16 08:36; Start 07/19/16 at 13:00 Atorvastatin Calcium (Lipitor) 10 mg QHS PO Last administered on 07/21/16 20: 18; Start 07/19/16 at 21:00 Calcium Acetate (Phoslo) 667 mg TIDWMEALS PO Last administered on 07/22/16 08: 35; Start 07/19/16 at 17:00 Darbepoetin Aaron (Aranesp) 60 mcg Faith SQ Last administered on 07/19/16 22:04; Start 07/19/16 at 21:00 Folic Acid (Folic Acid) 1 mg DAILY PO Last administered on 07/22/16 08:36; Start 07/19/16 at 13:00 Levothyroxine Sodium (Synthroid) 75 mcg DAILY07 PO Last administered on 06:01; Start 07/20/16 at 07:30 Oxycodone HCl (Oxycontin) 15 mg BID PO Last administered on 07/22/16 08:35; Start 07/19/16 at 13:00 Pantoprazole Sodium (Protonix) 40 mg BIDBFRMEAL PO Last administered on 08:36; Start 07/19/16 at 21:00 Phytonadione (Mephyton) 10 mg DAILY PO Last administered on 07/19/16 12:59; Start 07/19/16 at 13:00; Stop 07/19/16 at 14:18; Status DC Sodium Bicarbonate (Sodium Bicarbonate) 650 mg BID PO Last administered on 07/22 08:35; Start 07/19/16 at 13:00 Tamsulosin HCl (Flomax) 0.4 mg DAILY PO Last administered on 07/22/16 08:36; Start 07/19/16 at 13:00 Calcium/Vitamin D (Oscal D 500mg/ 200uts) 1 tab BIDWMEALS PO Last administered on 07/22/16 08:35; Start 07/19/16 at 17:00 Non-Formulary Medication 1 inh BID IH ; Start 07/19/16 at 21:00; Stop 07/19/16 at 21:00; Status DC Multivitamins/ Calcium (Thera M Plus) 1 tab DAILY PO Last administered on 08:36; Start 07/19/16 at 13:00 Oxycodone HCl (Roxicodone) 15 mg PRN Q3HRS PRN PO SEVERE PAIN Last administered on 07/20/16 20:58; Start 07/19/16 at 13:00 Spironolactone (Aldactone) 50 mg DAILY PO Last administered on 07/22/16 08:36 ; Start 07/20/16 at 13:00 Acetaminophen (Tylenol) 650 mg PRN Q6HRS PRN PO MILD PAIN / TEMP; Start at 12:45; Stop 07/19/16 at 12:47; Status DC Ondansetron HCl (Zofran) 4 mg PRN Q6HRS PRN IV NAUSEA/VOMITING; Start 07/19/16 at 12:45 Morphine Sulfate 2 mg PRN Q2HR PRN IV PAIN Last administered on 07/20/16 20:58 ; Start 07/19/16 at 12:45 Morphine Sulfate 4 mg PRN Q2HR PRN IV PAIN; Start 07/19/16 at 12:45 Metronidazole 500 mg 500 mg Q8HRS PO Last administered on 07/20/16 20:58; Start 07/19/16 at 14:00; Stop 07/21/16 at 08:34; Status DC Sodium Chloride 500 ml @ 500 mls/hr 1X ONCE IV ; Start 07/19/16 at 12:45; Stop 07/19/16 at 12:49; Status DC Albumin Human (Albuminar) 100 ml @ 100 mls/hr 1X ONCE IV Last administered on 07/19/16 12:58; Start 07/19/16 at 13:00; Stop 07/19/16 at 13:59; Status DC Albuterol/ Ipratropium 3 ml 3 ml BID NEB Last administered on 07/22/16 08:02; Start 07/19/16 at 13:00 Albumin Human 50 ml @ 50 mls/hr [id number] IV Last administered on 07/22/16 06:02 ; Start 07/19/16 at 17:00; Stop 07/22/16 at 16:59 Amino Acids/ Glycerin/ Electrolytes 1,000 ml @ 80 mls/hr [id number] IV Last administered on 07/21/16 20:18; Start 07/19/16 at 17:00 Potassium Chloride 100 ml @ 100 mls/hr Q1H IV Last administered on 07/20/16 01:18; Start 07/19/16 at 17:45; Stop 07/19/16 at 21:44; Status DC Albumin Human (Albuminar) 200 ml @ 200 mls/hr 1X PRN PRN IV Hypotension Last administered on 07/20/16 10:29; Start 07/20/16 at 10:15; Stop 07/20/16 at 16:14 ; Status DC Info 1 each 1 each PRN DAILY PRN MC SEE COMMENTS; Start 07/20/16 at 10:15 Vancomycin HCl/ Sodium Chloride (Iv Sodium Chloride 0.9% 100ml) 100 ml @ 100 mls/hr QMWF IV Last administered on 07/20/16 21:57; Start 07/20/16 at 21:00; Stop 07/21/16 at 08:34; Status DC Vancomycin HCl 125 mg [id number] PO Last administered on 07/22/16 08:35; Start at 09:00 Lidocaine/Sodium Bicarbonate (Buffered Lidocaine 1%) 20 ml STK-MED ONCE IJ ; Start 07/21/16 at 14:51; Stop 07/21/16 at 14:52; Status DC Lidocaine/Sodium Bicarbonate 20 ml 20 ml 1X ONCE IJ Last administered on 15:43; Start 07/21/16 at 15:15; Stop 07/21/16 at 15:16; Status DC Albumin Human 200 ml @ As Directed STK-MED ONCE IV ; Start 07/21/16 at 15:24; Stop 07/21/16 at 15:25; Status DC Albumin Human 100 ml @ 100 mls/hr 1X ONCE IV Last administered on 07/21/16 15:43; Start 07/21/16 at 15:30; Stop 07/21/16 at 16:29; Status DC Albumin Human (Albuminar) 100 ml @ 100 mls/hr 1X ONCE IV Last administered on 07/21/16 17:10; Start 07/21/16 at 16:30; Stop 07/21/16 at 17:29; Status DC Insulin Aspart (Novolog) 9 units 1X ONCE SQ ; Start 07/21/16 at 22:30; Stop at 22:31; Status DC Active Scripts Active Reported Keflex (Cephalexin) 500 Mg Capsule 1 Cap PO TID 7 Days Imodium A-D (Loperamide HCl) 2 Mg Capsule 2 Mg PO PRN Q6HRS PRN Acidophilus Lactobacillus (Lactobacillus Acidophilus) 1 Each Capsule 1 Each PO DAILY Furosemide 40 Mg Tablet 40 Mg PO DAILY Aranesp Syringe (Darbepoetin Aaron In Polysorbat) 60 Mcg/0.3 Ml Disp.syrin 60 Mcg SQ WEEKLY Mephyton (Phytonadione) 5 Mg Tablet 10 Mg PO DAILY Phoslo (Calcium Acetate) 667 Mg Capsule 2 Cap PO TIDWMEALS Allopurinol 100 Mg Tablet 1 Tab PO DAILY Spironolactone 50 Mg Tablet 50 Mg PO DAILY Oxycontin (Oxycodone HCl) 15 Mg Tab.er.12h 15 Mg PO BID Oxycodone Hcl 5 Mg Capsule 15 Mg PO Q3HRS PRN Oyster Shell Calcium-Vit D Tab (Calcium Carbonate/Vitamin D2) 1 Each Tablet 1 Each PO BID Acidophilus Lactobacillus (Lactobacillus Acidophilus) 1 Each Capsule 1 Each PO DAILY Glucose Gel (Dextrose) 38 Gm Gel..gram. 38 Gm PO PRN PRN Glucagon Emergency Kit (Glucagon,Human Recombinant) 1 Mg Kit 1 Mg IM PRN Acetaminophen 325 Mg Tablet 650 Mg PO PRN Q4HRS PRN Tamsulosin Hcl 0.4 Mg Cap.er.24h 1 Cap PO DAILY Sodium Bicarbonate 650 Mg Tablet 1 Tab PO BID Protonix (Pantoprazole Sodium) 40 Mg Tablet.dr 1 Tab PO BID Multi-Vitamin Daily (Multivitamin) 1 Each Tablet 1 Each PO DAILY Isordil (Isosorbide Dinitrate) 40 Mg Tablet 40 Mg PO TID Combivent Respimat Inhal (Ipratropium/Albuterol Sulfate) 4 Gm Aer.w.adap 1 Inh IH BID Hydralazine Hcl 50 Mg Tablet 1 Tab PO TID wed, wed, larissa, sat. Atorvastatin Calcium 10 Mg Tablet 1 Tab PO DAILY Amlodipine Besylate 5 Mg Tablet 5 Mg PO DAILY wed, wed, wed, sat. hold if sbp is less than 110. call dr if sbp is > 170. Amiodarone Hcl 200 Mg Tablet 1 Tab PO DAILY Novolog Flexpen (Insulin Aspart) 100 Unit/1 Ml Insuln.pen 3 Unit SQ TIDAC Folic Acid 1 Mg Tablet 1 Mg PO DAILY Carvedilol 12.5 Mg Tablet 12.5 Mg PO BIDWMEALS wed, wed, wed, sat. hold if sbp is 110. call dr if sbp is > 170. Levothyroxine Sodium 25 Mcg Tablet 75 Mcg PO DAILYAC Vitals/I & O Vital Sign - Last 24 Hours 07/21/16 07/21/16 07/21/16 07/21/16 11:07 13:04 15:16 15:21 Temp 98.0 98.0 Pulse 80 75 74 Resp 16 18 22 20 B/P 78/56 124/68 100/73 Pulse Ox 100 100 100 100 O2 Delivery Nasal Cannula Nasal Cannula Nasal Cannula Nasal Cannula O2 Flow Rate 2.0 2.0 2.0 07/21/16 07/21/16 07/21/16 07/21/16 15:26 15:31 15:36 15:41 Pulse 72 73 71 72 Resp 22 20 22 20 B/P 101/72 98/72 106/72 106/71 Pulse Ox 100 100 100 100 O2 Delivery Nasal Cannula Nasal Cannula Nasal Cannula Nasal Cannula O2 Flow Rate 2.0 2.0 2.0 2.0 07/21/16 07/21/16 07/21/16 07/21/16 15:46 15:51 15:56 16:01 Pulse 72 71 71 71 Resp 20 20 20 20 B/P 107/68 107/73 108/67 104/69 Pulse Ox 100 100 100 100 O2 Delivery Nasal Cannula Nasal Cannula Nasal Cannula Nasal Cannula O2 Flow Rate 2.0 2.0 2.0 2.0 07/21/16 07/21/16 07/21/16 07/21/16 16:55 19:00 19:16 20:05 Temp 98.1 98.1 Pulse 72 78 Resp 18 18 B/P 101/73 84/54 Pulse Ox 100 99 99 O2 Delivery Nasal Cannula Nasal Cannula Nasal Cannula O2 Flow Rate 2.0 2.0 2.0 07/21/16 07/22/16 07/22/16 07/22/16 23:00 03:00 07:00 08:02 Temp 98.4 97.9 98.4 98.4 97.9 98.4 Pulse 78 76 84 Resp 18 16 18 B/P 91/62 95/67 90/60 Pulse Ox 98 100 100 100 O2 Delivery Nasal Cannula Nasal Cannula O2 Flow Rate 2.0 2.0 07/22/16 08:35 Resp 18 Pulse Ox 100 O2 Delivery Nasal Cannula O2 Flow Rate 2.0 Intake and Output 07/21/16 07/21/16 07/22/16 15:00 23:00 07:00 Intake Total 720 ml 240 ml Output Total 49894 ml Balance -9530 ml 240 ml Problem List Problems Medical Problems: (1) Hypokalemia Status: Acute (2) Leukocytosis Status: Acute Assessment Cirrhosis/recurrent ascites; improved after tap. Otherwise seems at baseline. Plan of Care: Continue current Tx, Mgmt Plan of Care Note Home at your discretion OK with me. Have no plans for further testing/investigation. BANDAR PACHECO MD Jul 22, 2016 10:09
--- NOTE | 2016-07-22 10:15 | PDOC ---
Infectious Disease Note Subjective Subjective Doing ok. Ate well ROS ROS GEN: Denies fevers, chills, sweats HEENT: Denies blurred vision, sore throat CV: Denies chest pain RESP: Denies shortness of air, cough GI: Denies n/v/d NEURO: Denies confusion, dizziness MSK: Denies weakness, joint pain/swelling Vital Sign Vital Signs Vital Signs Date Time Temp Pulse Resp B/P Pulse Ox O2 Delivery O2 Flow Rate FiO2 07/22/16 08:35 18 100 Nasal Cannula 2.0 07/22/16 07:00 98.4 84 90/60 98.4 Physical Exam PHYSICAL EXAM GENERAL: NAD, Alert, less confused HEENT: PERRL, OC/OP- clear NECK: Supple, no JVD, no LN LUNGS: Clear HEART: S1S2, no gallop, no murmur ABD: Soft, NT, no organomegaly, no rebound. Less distended EXT: No edema, no cyanosis LOCK FITTER: Alert, coop, no focal neurologic deficit SKIN: No rash IV: ok Labs Lab Laboratory Tests Test 07/21/16 11:31 07/21/16 17:06 07/21/16 21:55 07/22/16 03:51 Glucose (Fingerstick) 179mg/dL (70-99) 152mg/dL (70-99) 318mg/dL (70-99) White Blood Count 5.6x10^3/uL (4.0-11.0) Red Blood Count 3.19x10^6/uL (4.30-5.70) Hemoglobin 9.0g/dL (13.0-17.5) Hematocrit 28.9% (39.0-53.0) Mean Corpuscular Volume 91fL (79-100) Mean Corpuscular Hemoglobin 28pg (25-35) Mean Corpuscular Hemoglobin Concent 31g/dL (31-37) Red Cell Distribution Width 17.8% (11.5-14.5) Platelet Count 24x10^3/uL (140-400) Neutrophils (%) (Auto) 83% (31-73) Lymphocytes (%) (Auto) 9% (24-48) Monocytes (%) (Auto) 6% (0-9) Eosinophils (%) (Auto) 2% (0-3) Basophils (%) (Auto) 1% (0-3) Neutrophils # (Auto) 4.7x10^3uL (1.8-7.7) Lymphocytes # (Auto) 0.5x10^3/uL (1.0-4.8) Monocytes # (Auto) 0.3x10^3/uL (0.0-1.1) Eosinophils # (Auto) 0.1x10^3/uL (0.0-0.7) Basophils # (Auto) 0.0x10^3/uL (0.0-0.2) Test 07/22/16 05:25 07/22/16 07:52 Sodium Level 137mmol/L (136-145) Potassium Level 3.4mmol/L (3.5-5.1) Chloride Level 104mmol/L (98-107) Carbon Dioxide Level 24mmol/L (21-32) Anion Gap 9 (6-14) Blood Urea Nitrogen 41mg/dL (8-26) Creatinine 4.4mg/dL (0.7-1.3) Estimated GFR (Cockcroft-Gault) 16.8 Glucose Level 176mg/dL (70-99) Calcium Level 7.6mg/dL (8.5-10.1) Glucose (Fingerstick) 226mg/dL (70-99) Objective Assessment Hypothermia - better C-diff + 07/19 Ascites s/p removal of 10 liters 07/21 CKD - on HD Thrombocytopenia - worse Plan Plan of Care Cont po Vanc F/u on labs LEXA MAYFIELD MD Jul 22, 2016 10:15
[2016-07-22 11:00] VITALS: BP 99/59
--- NOTE | 2016-07-22 11:26 | PDOC ---
Renal-Progress Notes Subjective Notes Notes NONE History of Present Illness Hx of present illness NO CHANGE Vitals Vitals Vital Signs Date Time Temp Pulse Resp B/P Pulse Ox O2 Delivery O2 Flow Rate FiO2 07/22/16 11:00 97.7 87 18 99/59 98 Nasal Cannula 2.0 97.7 Weight Weight [ ] I.O. Intake and Output Intake and Output 07/22/16 07:00 Intake Total 960 ml Output Total 40903 ml Balance -9290 ml Intake Oral 960 ml Drainage Total 55283 ml # Voids 2 # Bowel Movements 1 Labs Labs Laboratory Tests Test 07/21/16 11:31 07/21/16 17:06 07/21/16 21:55 07/22/16 03:51 Glucose (Fingerstick) 179mg/dL (70-99) 152mg/dL (70-99) 318mg/dL (70-99) White Blood Count 5.6x10^3/uL (4.0-11.0) Red Blood Count 3.19x10^6/uL (4.30-5.70) Hemoglobin 9.0g/dL (13.0-17.5) Hematocrit 28.9% (39.0-53.0) Mean Corpuscular Volume 91fL (79-100) Mean Corpuscular Hemoglobin 28pg (25-35) Mean Corpuscular Hemoglobin Concent 31g/dL (31-37) Red Cell Distribution Width 17.8% (11.5-14.5) Platelet Count 24x10^3/uL (140-400) Neutrophils (%) (Auto) 83% (31-73) Lymphocytes (%) (Auto) 9% (24-48) Monocytes (%) (Auto) 6% (0-9) Eosinophils (%) (Auto) 2% (0-3) Basophils (%) (Auto) 1% (0-3) Neutrophils # (Auto) 4.7x10^3uL (1.8-7.7) Lymphocytes # (Auto) 0.5x10^3/uL (1.0-4.8) Monocytes # (Auto) 0.3x10^3/uL (0.0-1.1) Eosinophils # (Auto) 0.1x10^3/uL (0.0-0.7) Basophils # (Auto) 0.0x10^3/uL (0.0-0.2) Test 07/22/16 05:25 07/22/16 07:52 Sodium Level 137mmol/L (136-145) Potassium Level 3.4mmol/L (3.5-5.1) Chloride Level 104mmol/L (98-107) Carbon Dioxide Level 24mmol/L (21-32) Anion Gap 9 (6-14) Blood Urea Nitrogen 41mg/dL (8-26) Creatinine 4.4mg/dL (0.7-1.3) Estimated GFR (Cockcroft-Gault) 16.8 Glucose Level 176mg/dL (70-99) Calcium Level 7.6mg/dL (8.5-10.1) Glucose (Fingerstick) 226mg/dL (70-99) Micro Micro Microbiology 07/18/16 Blood Culture - Preliminary, Resulted NO GROWTH AFTER 3 DAYS 07/21/16 Gram Stain - Final, Complete Review of Systems Constitutional: yes: alert, oriented, weakness Ears/Nose/Throat: Yes: no symptom reported Eyes: Yes: no symptom reported Gastrointestional: Yes: no symptom reported Musculoskeletal: Yes: muscle atrophy, muscle stiffness Physical Exam General Appearance: no apparent distress Skin: warm Respiratory: decreased breath sounds Heart: S1S2, RRR Abdomen: soft, bowel sounds present Genitourinary: bladder flat Neurology: alert, oriented Musculoskeletal: Osteoarthritis Assessment Assessment IMP ESRD ANEMIA ASCITES HYPOTENSION C DIF S/P PARACENTESIS PLAN HD TODAY UF TO DW WILL FOLLOW ADRIAN PANCHAL MD Jul 22, 2016 11:26
--- NOTE | 2016-07-22 12:26 | PDOC ---
PROGRESS NOTES Chief Complaint Chief Complaint 1. Hypothermia resolved, c diff positive 07/19 2. ESRD ON HD MWF 3. Ascites with hep C, cirrhosis 4. leukocytosis 5. thrombocytopenia 2/2 cirrhosis 6. DM2 7 h/o CHF, diastolic, STABLE 8. HTN, NOW Hypotension 9. HLD 10. gout 11. severe malnutrition 12. hx drug and Etoh use, Cocaine, Marijuana 13. C DIFF 14. ANEMIA, with ESRD, cirrhosis PLAN HD per Nephrology Low platelets, possible due to cirrhosis. PO Vancomycin s/p paracentesis on 07/21 SSI PPN Overall prognosis is poor, consult palliative care, recurrent admission to the hospital labs reviewed. GI and ID following. History of Present Illness History of Present Illness no fever no chills alert responding question. Vitals Vitals Vital Signs Date Time Temp Pulse Resp B/P Pulse Ox O2 Delivery O2 Flow Rate FiO2 07/22/16 11:00 97.7 87 18 99/59 98 Nasal Cannula 2.0 97.7 Physical Exam General: Alert, Other (non coperative) Heart: Normal S1, Normal S2 Lungs: Clear Abdomen: Normal bowel sounds, Soft, Other (DISTENDED) Extremities: No clubbing Labs LABS Laboratory Tests Test 07/21/16 17:06 07/21/16 21:55 07/22/16 03:51 07/22/16 05:25 Glucose (Fingerstick) 152mg/dL (70-99) 318mg/dL (70-99) White Blood Count 5.6x10^3/uL (4.0-11.0) Red Blood Count 3.19x10^6/uL (4.30-5.70) Hemoglobin 9.0g/dL (13.0-17.5) Hematocrit 28.9% (39.0-53.0) Mean Corpuscular Volume 91fL (79-100) Mean Corpuscular Hemoglobin 28pg (25-35) Mean Corpuscular Hemoglobin Concent 31g/dL (31-37) Red Cell Distribution Width 17.8% (11.5-14.5) Platelet Count 24x10^3/uL (140-400) Neutrophils (%) (Auto) 83% (31-73) Lymphocytes (%) (Auto) 9% (24-48) Monocytes (%) (Auto) 6% (0-9) Eosinophils (%) (Auto) 2% (0-3) Basophils (%) (Auto) 1% (0-3) Neutrophils # (Auto) 4.7x10^3uL (1.8-7.7) Lymphocytes # (Auto) 0.5x10^3/uL (1.0-4.8) Monocytes # (Auto) 0.3x10^3/uL (0.0-1.1) Eosinophils # (Auto) 0.1x10^3/uL (0.0-0.7) Basophils # (Auto) 0.0x10^3/uL (0.0-0.2) Sodium Level 137mmol/L (136-145) Potassium Level 3.4mmol/L (3.5-5.1) Chloride Level 104mmol/L (98-107) Carbon Dioxide Level 24mmol/L (21-32) Anion Gap 9 (6-14) Blood Urea Nitrogen 41mg/dL (8-26) Creatinine 4.4mg/dL (0.7-1.3) Estimated GFR (Cockcroft-Gault) 16.8 Glucose Level 176mg/dL (70-99) Calcium Level 7.6mg/dL (8.5-10.1) Test 07/22/16 07:52 07/22/16 11:37 Glucose (Fingerstick) 226mg/dL (70-99) 185mg/dL (70-99) Assessment and Plan Assessmemt and Plan Problems Medical Problems: (1) Hypokalemia Status: Acute (2) Leukocytosis Status: Acute Problems: Comment Review of Relevant I have reviewed the following items дмитрий (where applicable) has been applied. Labs Laboratory Tests Test 07/20/16 16:47 07/20/16 19:50 07/20/16 21:40 07/21/16 07:33 Glucose (Fingerstick) 74mg/dL (70-99) 124mg/dL (70-99) 164mg/dL (70-99) Random Vancomycin Level 14.1mcg/mL Test 07/21/16 11:31 07/21/16 17:06 07/21/16 21:55 07/22/16 03:51 Glucose (Fingerstick) 179mg/dL (70-99) 152mg/dL (70-99) 318mg/dL (70-99) White Blood Count 5.6x10^3/uL (4.0-11.0) Red Blood Count 3.19x10^6/uL (4.30-5.70) Hemoglobin 9.0g/dL (13.0-17.5) Hematocrit 28.9% (39.0-53.0) Mean Corpuscular Volume 91fL (79-100) Mean Corpuscular Hemoglobin 28pg (25-35) Mean Corpuscular Hemoglobin Concent 31g/dL (31-37) Red Cell Distribution Width 17.8% (11.5-14.5) Platelet Count 24x10^3/uL (140-400) Neutrophils (%) (Auto) 83% (31-73) Lymphocytes (%) (Auto) 9% (24-48) Monocytes (%) (Auto) 6% (0-9) Eosinophils (%) (Auto) 2% (0-3) Basophils (%) (Auto) 1% (0-3) Neutrophils # (Auto) 4.7x10^3uL (1.8-7.7) Lymphocytes # (Auto) 0.5x10^3/uL (1.0-4.8) Monocytes # (Auto) 0.3x10^3/uL (0.0-1.1) Eosinophils # (Auto) 0.1x10^3/uL (0.0-0.7) Basophils # (Auto) 0.0x10^3/uL (0.0-0.2) Test 07/22/16 05:25 07/22/16 07:52 07/22/16 11:37 Sodium Level 137mmol/L (136-145) Potassium Level 3.4mmol/L (3.5-5.1) Chloride Level 104mmol/L (98-107) Carbon Dioxide Level 24mmol/L (21-32) Anion Gap 9 (6-14) Blood Urea Nitrogen 41mg/dL (8-26) Creatinine 4.4mg/dL (0.7-1.3) Estimated GFR (Cockcroft-Gault) 16.8 Glucose Level 176mg/dL (70-99) Calcium Level 7.6mg/dL (8.5-10.1) Glucose (Fingerstick) 226mg/dL (70-99) 185mg/dL (70-99) Laboratory Tests Test 07/21/16 17:06 07/21/16 21:55 07/22/16 03:51 07/22/16 05:25 Glucose (Fingerstick) 152mg/dL (70-99) 318mg/dL (70-99) White Blood Count 5.6x10^3/uL (4.0-11.0) Red Blood Count 3.19x10^6/uL (4.30-5.70) Hemoglobin 9.0g/dL (13.0-17.5) Hematocrit 28.9% (39.0-53.0) Mean Corpuscular Volume 91fL (79-100) Mean Corpuscular Hemoglobin 28pg (25-35) Mean Corpuscular Hemoglobin Concent 31g/dL (31-37) Red Cell Distribution Width 17.8% (11.5-14.5) Platelet Count 24x10^3/uL (140-400) Neutrophils (%) (Auto) 83% (31-73) Lymphocytes (%) (Auto) 9% (24-48) Monocytes (%) (Auto) 6% (0-9) Eosinophils (%) (Auto) 2% (0-3) Basophils (%) (Auto) 1% (0-3) Neutrophils # (Auto) 4.7x10^3uL (1.8-7.7) Lymphocytes # (Auto) 0.5x10^3/uL (1.0-4.8) Monocytes # (Auto) 0.3x10^3/uL (0.0-1.1) Eosinophils # (Auto) 0.1x10^3/uL (0.0-0.7) Basophils # (Auto) 0.0x10^3/uL (0.0-0.2) Sodium Level 137mmol/L (136-145) Potassium Level 3.4mmol/L (3.5-5.1) Chloride Level 104mmol/L (98-107) Carbon Dioxide Level 24mmol/L (21-32) Anion Gap 9 (6-14) Blood Urea Nitrogen 41mg/dL (8-26) Creatinine 4.4mg/dL (0.7-1.3) Estimated GFR (Cockcroft-Gault) 16.8 Glucose Level 176mg/dL (70-99) Calcium Level 7.6mg/dL (8.5-10.1) Test 07/22/16 07:52 07/22/16 11:37 Glucose (Fingerstick) 226mg/dL (70-99) 185mg/dL (70-99) Microbiology 07/18/16 Blood Culture - Preliminary, Resulted NO GROWTH AFTER 3 DAYS 07/21/16 Gram Stain - Final, Complete Medications Current Medications Sodium Chloride (Iv Sodium Chloride 0.9% 500ml Bag) 500 ml @ 500 mls/hr 1X ONCE IV Last administered on 07/18/16 17:45; Start 07/18/16 at 17:45; Stop at 18:44; Status DC Vancomycin HCl (Vanco Per Pharmacy) 1 each PRN DAILY PRN MC SEE COMMENTS Last administered on 07/20/16 20:37; Start 07/18/16 at 18:30; Stop 07/21/16 at 08:34 ; Status DC Piperacillin Sod/ Tazobactam Sod 1 each 1 each PRN DAILY PRN MC SEE COMMENTS; Start 07/18/16 at 18:30; Stop 07/21/16 at 08:34; Status DC Vancomycin HCl/ Sodium Chloride (Iv Sodium Chloride 0.9% 500ml Bag) 500 ml @ 250 mls/hr 1X ONCE IV Last administered on 07/18/16 21:17; Start 07/18/16 at 18:45; Stop 07/18/16 at 20:44; Status DC Potassium Chloride 40 meq 40 meq 1X ONCE PO Last administered on 07/18/16 19: 05; Start 07/18/16 at 18:45; Stop 07/18/16 at 18:46; Status DC Piperacillin Sod/ Tazobactam Sod/ Sodium Chloride (Zosyn/Iv Sodium Chloride 0.9 % 50ml) 50 ml @ 100 mls/hr ONCE ONCE IV Last administered on 07/18/16 19:05 ; Start 07/18/16 at 18:45; Stop 07/18/16 at 19:14; Status DC Ondansetron HCl (Zofran) 4 mg PRN Q8HRS PRN IV NAUSEA/VOMITING; Start 07/18/16 at 18:45; Stop 07/19/16 at 18:44; Status DC Morphine Sulfate 2 mg PRN Q2HR PRN IV PAIN Last administered on 07/19/16 10:36 ; Start 07/18/16 at 18:45; Stop 07/19/16 at 13:25; Status DC Insulin Aspart (Novolog) 0-7 UNITS TIDWMEALS SQ Last administered on 07/22/16 08:47; Start 07/19/16 at 08:00 Dextrose 12.5 gm 12.5 gm PRN Q15MIN PRN IV SEE COMMENTS; Start 07/18/16 at 18: 45 Piperacillin Sod/ Tazobactam Sod/ Sodium Chloride (Zosyn/Iv Sodium Chloride 0.9 % 50ml) 50 ml @ 100 mls/hr Q8HRS IV Last administered on 07/21/16 06:18; Start 07/19/16 at 06:00; Stop 07/21/16 at 08:34; Status DC Vancomycin HCl 1 each 1X ONCE MC Last administered on 07/20/16 21:57; Start 07/20/16 at 20:00; Stop 07/20/16 at 20:01; Status DC Info (Do NOT chart on this placeholder) 1 each PRN DAILY PRN MC STATUS UNKNOWN ; Start 07/19/16 at 05:30; Status Cancel Pneumococcal Polyvalent Vaccine (Do NOT chart on this placeholder) 1 each PRN DAILY PRN MC STATUS UNKNOWN; Start 07/19/16 at 05:30; Status Cancel Potassium Chloride (Klor-Con) 40 meq 1X ONCE PO Last administered on 07:45; Start 07/19/16 at 07:45; Stop 07/19/16 at 07:46; Status DC Potassium Chloride (Klor-Con) 20 meq 1X ONCE PO Last administered on 07:45; Start 07/19/16 at 07:45; Stop 07/19/16 at 07:46; Status DC Acetaminophen (Tylenol) 650 mg PRN Q4HRS PRN PO PAIN; Start 07/19/16 at 12:45 Allopurinol (Zyloprim) 100 mg DAILY PO Last administered on 07/22/16 08:36; Start 07/19/16 at 13:00 Atorvastatin Calcium (Lipitor) 10 mg QHS PO Last administered on 07/21/16 20: 18; Start 07/19/16 at 21:00 Calcium Acetate (Phoslo) 667 mg TIDWMEALS PO Last administered on 07/22/16 08: 35; Start 07/19/16 at 17:00 Darbepoetin Aaron (Aranesp) 60 mcg Faith SQ Last administered on 07/19/16 22:04; Start 07/19/16 at 21:00 Folic Acid (Folic Acid) 1 mg DAILY PO Last administered on 07/22/16 08:36; Start 07/19/16 at 13:00 Levothyroxine Sodium (Synthroid) 75 mcg DAILY07 PO Last administered on 06:01; Start 07/20/16 at 07:30 Oxycodone HCl (Oxycontin) 15 mg BID PO Last administered on 07/22/16 08:35; Start 07/19/16 at 13:00 Pantoprazole Sodium (Protonix) 40 mg BIDBFRMEAL PO Last administered on 08:36; Start 07/19/16 at 21:00 Phytonadione (Mephyton) 10 mg DAILY PO Last administered on 07/19/16 12:59; Start 07/19/16 at 13:00; Stop 07/19/16 at 14:18; Status DC Sodium Bicarbonate (Sodium Bicarbonate) 650 mg BID PO Last administered on 07/22 08:35; Start 07/19/16 at 13:00 Tamsulosin HCl (Flomax) 0.4 mg DAILY PO Last administered on 07/22/16 08:36; Start 07/19/16 at 13:00 Calcium/Vitamin D (Oscal D 500mg/ 200uts) 1 tab BIDWMEALS PO Last administered on 07/22/16 08:35; Start 07/19/16 at 17:00 Non-Formulary Medication 1 inh BID IH ; Start 07/19/16 at 21:00; Stop 07/19/16 at 21:00; Status DC Multivitamins/ Calcium (Thera M Plus) 1 tab DAILY PO Last administered on 08:36; Start 07/19/16 at 13:00 Oxycodone HCl (Roxicodone) 15 mg PRN Q3HRS PRN PO SEVERE PAIN Last administered on 07/20/16 20:58; Start 07/19/16 at 13:00 Spironolactone (Aldactone) 50 mg DAILY PO Last administered on 07/22/16 08:36 ; Start 07/20/16 at 13:00 Acetaminophen (Tylenol) 650 mg PRN Q6HRS PRN PO MILD PAIN / TEMP; Start at 12:45; Stop 07/19/16 at 12:47; Status DC Ondansetron HCl (Zofran) 4 mg PRN Q6HRS PRN IV NAUSEA/VOMITING; Start 07/19/16 at 12:45 Morphine Sulfate 2 mg PRN Q2HR PRN IV PAIN Last administered on 07/20/16 20:58 ; Start 07/19/16 at 12:45 Morphine Sulfate 4 mg PRN Q2HR PRN IV PAIN; Start 07/19/16 at 12:45 Metronidazole 500 mg 500 mg Q8HRS PO Last administered on 07/20/16 20:58; Start 07/19/16 at 14:00; Stop 07/21/16 at 08:34; Status DC Sodium Chloride 500 ml @ 500 mls/hr 1X ONCE IV ; Start 07/19/16 at 12:45; Stop 07/19/16 at 12:49; Status DC Albumin Human (Albuminar) 100 ml @ 100 mls/hr 1X ONCE IV Last administered on 07/19/16 12:58; Start 07/19/16 at 13:00; Stop 07/19/16 at 13:59; Status DC Albuterol/ Ipratropium 3 ml 3 ml BID NEB Last administered on 07/22/16 08:02; Start 07/19/16 at 13:00 Albumin Human 50 ml @ 50 mls/hr [id number] IV Last administered on 07/22/16 06:02 ; Start 07/19/16 at 17:00; Stop 07/22/16 at 16:59 Amino Acids/ Glycerin/ Electrolytes 1,000 ml @ 80 mls/hr [id number] IV Last administered on 07/22/16 07:30; Start 07/19/16 at 17:00 Potassium Chloride 100 ml @ 100 mls/hr Q1H IV Last administered on 07/20/16 01:18; Start 07/19/16 at 17:45; Stop 07/19/16 at 21:44; Status DC Albumin Human (Albuminar) 200 ml @ 200 mls/hr 1X PRN PRN IV Hypotension Last administered on 07/20/16 10:29; Start 07/20/16 at 10:15; Stop 07/20/16 at 16:14 ; Status DC Info 1 each 1 each PRN DAILY PRN MC SEE COMMENTS; Start 07/20/16 at 10:15 Vancomycin HCl/ Sodium Chloride (Iv Sodium Chloride 0.9% 100ml) 100 ml @ 100 mls/hr QMWF IV Last administered on 07/20/16 21:57; Start 07/20/16 at 21:00; Stop 07/21/16 at 08:34; Status DC Vancomycin HCl 125 mg [id number] PO Last administered on 07/22/16 08:35; Start at 09:00 Lidocaine/Sodium Bicarbonate (Buffered Lidocaine 1%) 20 ml STK-MED ONCE IJ ; Start 07/21/16 at 14:51; Stop 07/21/16 at 14:52; Status DC Lidocaine/Sodium Bicarbonate 20 ml 20 ml 1X ONCE IJ Last administered on 15:43; Start 07/21/16 at 15:15; Stop 07/21/16 at 15:16; Status DC Albumin Human 200 ml @ As Directed STK-MED ONCE IV ; Start 07/21/16 at 15:24; Stop 07/21/16 at 15:25; Status DC Albumin Human 100 ml @ 100 mls/hr 1X ONCE IV Last administered on 07/21/16 15:43; Start 07/21/16 at 15:30; Stop 07/21/16 at 16:29; Status DC Albumin Human (Albuminar) 100 ml @ 100 mls/hr 1X ONCE IV Last administered on 07/21/16 17:10; Start 07/21/16 at 16:30; Stop 07/21/16 at 17:29; Status DC Insulin Aspart (Novolog) 9 units 1X ONCE SQ ; Start 07/21/16 at 22:30; Stop at 22:31; Status DC Active Scripts Active Reported Keflex (Cephalexin) 500 Mg Capsule 1 Cap PO TID 7 Days Imodium A-D (Loperamide HCl) 2 Mg Capsule 2 Mg PO PRN Q6HRS PRN Acidophilus Lactobacillus (Lactobacillus Acidophilus) 1 Each Capsule 1 Each PO DAILY Furosemide 40 Mg Tablet 40 Mg PO DAILY Aranesp Syringe (Darbepoetin Aaron In Polysorbat) 60 Mcg/0.3 Ml Disp.syrin 60 Mcg SQ WEEKLY Mephyton (Phytonadione) 5 Mg Tablet 10 Mg PO DAILY Phoslo (Calcium Acetate) 667 Mg Capsule 2 Cap PO TIDWMEALS Allopurinol 100 Mg Tablet 1 Tab PO DAILY Spironolactone 50 Mg Tablet 50 Mg PO DAILY Oxycontin (Oxycodone HCl) 15 Mg Tab.er.12h 15 Mg PO BID Oxycodone Hcl 5 Mg Capsule 15 Mg PO Q3HRS PRN Oyster Shell Calcium-Vit D Tab (Calcium Carbonate/Vitamin D2) 1 Each Tablet 1 Each PO BID Acidophilus Lactobacillus (Lactobacillus Acidophilus) 1 Each Capsule 1 Each PO DAILY Glucose Gel (Dextrose) 38 Gm Gel..gram. 38 Gm PO PRN PRN Glucagon Emergency Kit (Glucagon,Human Recombinant) 1 Mg Kit 1 Mg IM PRN Acetaminophen 325 Mg Tablet 650 Mg PO PRN Q4HRS PRN Tamsulosin Hcl 0.4 Mg Cap.er.24h 1 Cap PO DAILY Sodium Bicarbonate 650 Mg Tablet 1 Tab PO BID Protonix (Pantoprazole Sodium) 40 Mg Tablet.dr 1 Tab PO BID Multi-Vitamin Daily (Multivitamin) 1 Each Tablet 1 Each PO DAILY Isordil (Isosorbide Dinitrate) 40 Mg Tablet 40 Mg PO TID Combivent Respimat Inhal (Ipratropium/Albuterol Sulfate) 4 Gm Aer.w.adap 1 Inh IH BID Hydralazine Hcl 50 Mg Tablet 1 Tab PO TID wed, wed, wed, sat. Atorvastatin Calcium 10 Mg Tablet 1 Tab PO DAILY Amlodipine Besylate 5 Mg Tablet 5 Mg PO DAILY wed, wed, wed, sat. hold if sbp is less than 110. call dr if sbp is > 170. Amiodarone Hcl 200 Mg Tablet 1 Tab PO DAILY Novolog Flexpen (Insulin Aspart) 100 Unit/1 Ml Insuln.pen 3 Unit SQ TIDAC Folic Acid 1 Mg Tablet 1 Mg PO DAILY Carvedilol 12.5 Mg Tablet 12.5 Mg PO BIDWMEALS wed, wed, wed, sat. hold if sbp is 110. call dr if sbp is > 170. Levothyroxine Sodium 25 Mcg Tablet 75 Mcg PO DAILYAC Vitals/I & O Vital Sign - Last 24 Hours 07/21/16 07/21/16 07/21/16 07/21/16 13:04 15:16 15:21 15:26 Pulse 75 74 72 Resp 18 22 20 22 B/P 124/68 100/73 101/72 Pulse Ox 100 100 100 100 O2 Delivery Nasal Cannula Nasal Cannula Nasal Cannula Nasal Cannula O2 Flow Rate 2.0 2.0 2.0 2.0 07/21/16 07/21/16 07/21/16 07/21/16 15:31 15:36 15:41 15:46 Pulse 73 71 72 72 Resp 20 22 20 20 B/P 98/72 106/72 106/71 107/68 Pulse Ox 100 100 100 100 O2 Delivery Nasal Cannula Nasal Cannula Nasal Cannula Nasal Cannula O2 Flow Rate 2.0 2.0 2.0 2.0 07/21/16 07/21/16 07/21/16 07/21/16 15:51 15:56 16:01 16:55 Pulse 71 71 71 72 Resp 20 20 20 18 B/P 107/73 108/67 104/69 101/73 Pulse Ox 100 100 100 100 O2 Delivery Nasal Cannula Nasal Cannula Nasal Cannula Nasal Cannula O2 Flow Rate 2.0 2.0 2.0 2.0 07/21/16 07/21/16 07/21/16 07/21/16 19:00 19:16 20:05 23:00 Temp 98.1 98.4 98.1 98.4 Pulse 78 78 Resp 18 18 B/P 84/54 91/62 Pulse Ox 99 99 98 O2 Delivery Nasal Cannula Nasal Cannula O2 Flow Rate 2.0 2.0 07/22/16 07/22/16 07/22/16 07/22/16 03:00 07:00 08:00 08:02 Temp 97.9 98.4 97.9 98.4 Pulse 76 84 Resp 16 18 B/P 95/67 90/60 Pulse Ox 100 100 100 O2 Delivery Nasal Cannula Nasal Cannula Nasal Cannula O2 Flow Rate 2.0 2.0 2.0 07/22/16 07/22/16 08:35 11:00 Temp 97.7 97.7 Pulse 87 Resp 18 18 B/P 99/59 Pulse Ox 100 98 O2 Delivery Nasal Cannula Nasal Cannula O2 Flow Rate 2.0 2.0 Intake and Output 07/21/16 07/21/16 07/22/16 15:00 23:00 07:00 Intake Total 720 ml 240 ml Output Total 10203 ml Balance -9530 ml 240 ml ANISA SCHMITT MD Jul 22, 2016 12:26
[2016-07-22] MEDS ORDERED: IV NORMAL SALINE 1000ML BAG 1,000 ML IV PRN ×2 (13:32)
[2016-07-22] MEDS ORDERED: ALBUMIN HUMAN 25% 100 ML IV ONE ×2 (13:45)
[2016-07-22] MEDS ORDERED: 0.9 % SODIUM CHLORIDE 10 ML DISP.SYRIN. IV PRN ×2 (13:45)
[2016-07-22] MEDS ORDERED: DIALYSIS PATIENT. MC PRN ×2 (13:45)
[2016-07-22 19:45] VITALS: BP 92/64
[2016-07-22] MEDS: ATORVASTATIN CALCIUM 10 MG TABLET. PO SCH (20:49)
[2016-07-22 23:00] VITALS: BP 109/67
[2016-07-23 03:00] VITALS: BP 122/84
[2016-07-23] MEDS: LEVOTHYROXINE 25 MCG TABLET. PO SCH (06:10)
[2016-07-23] MEDS: IPRATRPIUM/ALBUTEROL 0.5/2.5MG 3 ML NEBU. NEB SCH (07:32)
[2016-07-23 08:00] VITALS: BP 94/64
--- NOTE | 2016-07-23 08:58 | PDOC ---
Infectious Disease Note Subjective Subjective Doing ok. Ate well ROS ROS GEN: Denies fevers, chills, sweats HEENT: Denies blurred vision, sore throat CV: Denies chest pain RESP: Denies shortness of air, cough GI: Denies n/v/d NEURO: Denies confusion, dizziness MSK: Denies weakness, joint pain/swelling Vital Sign Vital Signs Vital Signs Date Time Temp Pulse Resp B/P Pulse Ox O2 Delivery O2 Flow Rate FiO2 07/23/16 08:00 99 94/64 95 Room Air 07/23/16 03:00 97.9 18 97.9 07/22/16 19:45 2.0 Physical Exam PHYSICAL EXAM GENERAL: NAD, Alert, less confused HEENT: PERRL, OC/OP- clear NECK: Supple, no JVD, no LN LUNGS: Clear HEART: S1S2, no gallop, no murmur ABD: Soft, NT, no organomegaly, no rebound. Distended EXT: No edema, no cyanosis [employer] COORDINATOR: Alert, coop, no focal neurologic deficit SKIN: No rash IV: ok Labs Lab Laboratory Tests Test 07/22/16 11:37 07/22/16 18:10 07/22/16 21:47 07/23/16 08:30 Glucose (Fingerstick) 185mg/dL (70-99) 188mg/dL (70-99) 243mg/dL (70-99) 305mg/dL (70-99) Test 07/23/16 08:47 Glucose (Fingerstick) 250mg/dL (70-99) Objective Assessment Hypothermia - better C-diff + 07/19 Ascites s/p removal of 10 liters 07/21 CKD - on HD Thrombocytopenia - worse Plan Plan of Care Cont po Vanc for total of 14 days Agree with Palliative eval ID to sign off LEXA MAYFIELD MD Jul 23, 2016 08:58
[2016-07-23] MEDS: VANCOMYCIN 125 MG/2.5 ML ORAL SOLUTION. PO SCH ×2 (08:59→12:14)
[2016-07-23] MEDS: SPIRONOLACTONE 25 MG TABLET PO SCH (09:00)
[2016-07-23] MEDS: ALLOPURINOL 100 MG TABLET. PO SCH (09:03)
[2016-07-23] MEDS: SODIUM BICARBONATE 650 MG TABLET. PO SCH (09:03)
[2016-07-23] MEDS: OXYCODONE ER 15 MG TAB.ER.12H. PO SCH (09:04)
[2016-07-23] MEDS: TAMSULOSIN 0.4 MG CAP.ER.24H. PO SCH (09:04)
[2016-07-23] MEDS: CALCIUM ACETATE 667 MG CAPSULE PO SCH ×2 (09:04→12:14)
[2016-07-23] MEDS: CALCIUM CARB/VIT D3 500/200 TABLET PO SCH (09:05)
[2016-07-23] MEDS: FOLIC ACID 1 MG TABLET PO SCH (09:05)
[2016-07-23] MEDS: MULTIVITAMIN with MINERAL TABLET. PO SCH (09:05)
[2016-07-23] MEDS: PANTOPRAZOLE 40 MG TABLET. PO SCH (09:05)
[2016-07-23] MEDS: INSULIN ASPART 300 UNITS/3 ML INSULN.PEN SQ SCH ×2 (09:19→12:22)
[2016-07-23 10:29] LABS: BASO % 1 % (0-3); EOS % 1 % (0-3); HEMATOCRIT 31.4 % (39.0-53.0); LYMPH # 0.4 x10^3/uL (1.0-4.8); LYMPH % 8 % (24-48); MEAN CORPUSCULAR HEMOGLOBIN 28 pg (25-35); MEAN CORPUSCULAR HGB CONC 32 g/dL (31-37); MEAN CORPUSCULAR VOLUME 87 fL (79-100); MONO % 6 % (0-9); NEUT % 83 % (31-73); RED BLOOD COUNT 3.63 x10^6/uL (4.30-5.70); RED CELL DISTRIBUTION WIDTH 17.4 % (11.5-14.5)
[2016-07-23 10:31] LABS: PLATELET COUNT 19 x10^3/uL (140-400)
[2016-07-23 10:38] LABS: CALCIUM 7.7 mg/dL (8.5-10.1); CREATININE 3.2 mg/dL (0.7-1.3); GFR 24.3; POTASSIUM 3.6 mmol/L (3.5-5.1)
[2016-07-23 11:00] VITALS: BP 97/68
--- NOTE | 2016-07-23 11:41 | PDOC ---
Renal-Progress Notes Subjective Notes Notes NONE History of Present Illness Hx of present illness OVERALL NO CHANGE Vitals Vitals Vital Signs Date Time Temp Pulse Resp B/P Pulse Ox O2 Delivery O2 Flow Rate FiO2 07/23/16 11:00 81 97/68 100 Room Air 07/23/16 09:04 2.0 07/23/16 03:00 97.9 18 97.9 Weight Weight [ ] I.O. Intake and Output Intake and Output 07/23/16 07:00 Intake Total 320 ml Output Total 2 ml Balance 318 ml Intake Oral 320 ml Stool Total 2 ml # Voids 1 # Bowel Movements 2 Labs Labs Laboratory Tests Test 07/22/16 18:10 07/22/16 21:47 07/23/16 08:30 07/23/16 08:47 Glucose (Fingerstick) 188mg/dL (70-99) 243mg/dL (70-99) 305mg/dL (70-99) 250mg/dL (70-99) Test 07/23/16 10:15 White Blood Count 5.0x10^3/uL (4.0-11.0) Red Blood Count 3.63x10^6/uL (4.30-5.70) Hemoglobin 10.0g/dL (13.0-17.5) Hematocrit 31.4% (39.0-53.0) Mean Corpuscular Volume 87fL (79-100) Mean Corpuscular Hemoglobin 28pg (25-35) Mean Corpuscular Hemoglobin Concent 32g/dL (31-37) Red Cell Distribution Width 17.4% (11.5-14.5) Platelet Count 19x10^3/uL (140-400) Neutrophils (%) (Auto) 83% (31-73) Lymphocytes (%) (Auto) 8% (24-48) Monocytes (%) (Auto) 6% (0-9) Eosinophils (%) (Auto) 1% (0-3) Basophils (%) (Auto) 1% (0-3) Neutrophils # (Auto) 4.2x10^3uL (1.8-7.7) Lymphocytes # (Auto) 0.4x10^3/uL (1.0-4.8) Monocytes # (Auto) 0.3x10^3/uL (0.0-1.1) Eosinophils # (Auto) 0.1x10^3/uL (0.0-0.7) Basophils # (Auto) 0.0x10^3/uL (0.0-0.2) Sodium Level 137mmol/L (136-145) Potassium Level 3.6mmol/L (3.5-5.1) Chloride Level 102mmol/L (98-107) Carbon Dioxide Level 27mmol/L (21-32) Anion Gap 8 (6-14) Blood Urea Nitrogen 30mg/dL (8-26) Creatinine 3.2mg/dL (0.7-1.3) Estimated GFR (Cockcroft-Gault) 24.3 Glucose Level 285mg/dL (70-99) Calcium Level 7.7mg/dL (8.5-10.1) Micro Micro Microbiology 07/18/16 Blood Culture - Preliminary, Resulted NO GROWTH AFTER 4 DAYS 07/21/16 Gram Stain - Final, Complete Review of Systems Constitutional: yes: alert, oriented, weakness Ears/Nose/Throat: Yes: no symptom reported Eyes: Yes: no symptom reported Gastrointestional: Yes: no symptom reported Musculoskeletal: Yes: muscle atrophy, muscle stiffness Physical Exam General Appearance: no apparent distress Skin: warm Respiratory: decreased breath sounds Heart: S1S2, RRR Abdomen: soft, bowel sounds present Genitourinary: bladder flat Neurology: alert, oriented Musculoskeletal: Osteoarthritis Assessment Assessment IMP ESRD ANEMIA ASCITES HYPOTENSION C DIF S/P PARACENTESIS PLAN HD TOMORROW WILL FOLLOW ADRIAN PANCHAL MD Jul 23, 2016 11:41
[2016-07-23] MEDS: AA 3%/ELECTROLYTE-TPN SOLN/GLY 1,000 ML IV SCH (12:13)
--- NOTE | 2016-07-23 12:20 | PDOC ---
Subjective: Subjective: Less diarrhea, eating okay, feels better after paracentesis. Objective: Vital Signs: Vital Signs Date Time Temp Pulse Resp B/P Pulse Ox O2 Delivery O2 Flow Rate FiO2 07/23/16 11:00 81 97/68 100 Room Air 07/23/16 09:04 2.0 07/23/16 03:00 97.9 18 97.9 Labs: Laboratory Tests Test 07/22/16 18:10 07/22/16 21:47 07/23/16 08:30 07/23/16 08:47 Glucose (Fingerstick) 188mg/dL 243mg/dL 305mg/dL 250mg/dL Test 07/23/16 10:15 07/23/16 12:08 White Blood Count 5.0x10^3/uL Red Blood Count 3.63x10^6/uL Hemoglobin 10.0g/dL Hematocrit 31.4% Mean Corpuscular Volume 87fL Mean Corpuscular Hemoglobin 28pg Mean Corpuscular Hemoglobin Concent 32g/dL Red Cell Distribution Width 17.4% Platelet Count 19x10^3/uL Neutrophils (%) (Auto) 83% Lymphocytes (%) (Auto) 8% Monocytes (%) (Auto) 6% Eosinophils (%) (Auto) 1% Basophils (%) (Auto) 1% Neutrophils # (Auto) 4.2x10^3uL Lymphocytes # (Auto) 0.4x10^3/uL Monocytes # (Auto) 0.3x10^3/uL Eosinophils # (Auto) 0.1x10^3/uL Basophils # (Auto) 0.0x10^3/uL Sodium Level 137mmol/L Potassium Level 3.6mmol/L Chloride Level 102mmol/L Carbon Dioxide Level 27mmol/L Anion Gap 8 Blood Urea Nitrogen 30mg/dL Creatinine 3.2mg/dL Estimated GFR (Cockcroft-Gault) 24.3 Glucose Level 285mg/dL Calcium Level 7.7mg/dL Glucose (Fingerstick) 294mg/dL PE: GEN: NAD, up to chair ABD: less distended NEURO/PSYCH: A & O 3 A/P: Cirrhosis, recurrent ascites/paracentesis -Hep C, alcohol -thrombocytopenia -s/p paracentesis 07/22 C Diff -on oral vanc -- Getting better. SARAVANAN KEARNEY 26, 2017 12:20
[2016-07-23 14:54] VITALS: BP 79/48
--- NOTE | 2016-07-23 23:15 | DS ---
DATE OF DISCHARGE: 07/23/2016 DISCHARGE DIAGNOSES: 1. Hypokalemia due to diarrhea, Clostridium difficile, ongoing treatment. 2. Ascites, recurrent, hepatitis C, cirrhosis, status post paracentesis. 3. End-stage renal disease, on hemodialysis. 4. Leukocytosis, severe thrombocytopenia secondary to cirrhosis. 5. Diabetes mellitus. 6. Diastolic heart failure, chronic, stable. 7. Hypertension, currently hypotensive, hemodynamically stable. 8. Hyperlipidemia. 9. Severe malnutrition. 10. History of substance abuse, cocaine, marijuana, and ethyl alcohol. 11. Anemia with chronic disease and cirrhosis. CONSULTATIONS: Dr. Davison, and Dr. Park. BRIEF HOSPITAL COURSE: A 56-year-old male patient admitted to the hospital for hypokalemia and diarrhea. The patient found out to have C. diff infection. During hospitalization, he had a paracentesis and also he got hemodialysis as per his schedules Wednesday, Wednesday, and Wednesday. The patient had several admissions to the hospital which wre recurrent. We asked the palliative team to talk with the patient and family; however, we were not able to reach the family, ( sister). He developed thrombocytopenia, which has been slowly worsening. Currently, his platelets around 20,000, which needs to be monitored by PCP. Patient's overall prognosis is poor versus guarded given his cirrhosis and several other comorbid conditions. Symptomatically, his symptoms improved with paracentesis and he needs treatment of C. diff for nearly 10 days. DISCHARGE PHYSICAL EXAMINATION: GENERAL: Alert, oriented x 3. HEART: S1, S2 present, systolic murmur present. LUNGS: Clear. ABDOMEN: Soft, distended, nontender. EXTREMITIES: +1 edema. DISCHARGE DISPOSITION: shelter facility. DISCHARGE CONDITION: Stable. PROGNOSIS: Poor versus guarded. DISCHARGE MEDICATIONS: To be reconciled. FOLLOWUP: The patient needs to be followed up by primary care doctor for CBC due to thrombocytopenia. DIET: Renal diet. Total time spent for discharge 32 minutes for patient education, counseling, and coordination of care. ANISA SCHMITT MD DR: EASTON/melissa JOB#: [id number] / [id number] TARYN
== END 2016-07-23 16:00 | DRG 371 ==
LOC: ER 17:25 → 6 SOUTH 18:37
PROVIDERS: ADMIT Internal Medicine; ATTEND Internal Medicine
PROC: 5A1D60Z (ICD-10-PCS; principal; 2016-07-20)
PROC: 0W9G30Z Drainage of Peritoneal Cavity with Drainage Device, Percutaneous Approach (ICD-10-PCS; 2016-07-22)
DX: A04.7 Enterocolitis due to Clostridium difficile (principal); E43 Unspecified severe protein-calorie malnutrition; N18.6 End stage renal disease; I42.9 Cardiomyopathy, unspecified; I13.2 Hypertensive heart and chronic kidney disease with heart failure and with stage 5 chronic kidney disease, or end stage renal disease; I50.32 Chronic diastolic (congestive) heart failure; K70.31 Alcoholic cirrhosis of liver with ascites; E87.6 Hypokalemia; B19.20 Unspecified viral hepatitis C without hepatic coma; D63.1 Anemia in chronic kidney disease; D69.59 Other secondary thrombocytopenia; E03.9 Hypothyroidism, unspecified; E11.21 Type 2 diabetes mellitus with diabetic nephropathy; Z68.21 Body mass index [BMI] 21.0-21.9, adult; E11.22 Type 2 diabetes mellitus with diabetic chronic kidney disease; E78.00 Pure hypercholesterolemia, unspecified; E78.5 Hyperlipidemia, unspecified; F03.90 Unspecified dementia, unspecified severity, without behavioral disturbance, psychotic disturbance, mood disturbance, and anxiety; E11.51 Type 2 diabetes mellitus with diabetic peripheral angiopathy without gangrene; J44.9 Chronic obstructive pulmonary disease, unspecified; M10.9 Gout, unspecified; Z99.2 Dependence on renal dialysis; Z87.891 Personal history of nicotine dependence; Z51.5 Encounter for palliative care
CPT/HCPCS: 36415; 49083; 71010; 80048; 80051; 80053; 80202; 82947; 83605; 83735; 84100; 85007; 85027; 85610; 87040; 87045; 87071; 87075; 87205; 87324; 87641; 93005; 94250; 94640; 94760; 96361; 96365; A4215; C1729; C1892; C1894; J0881; J1815; J2270; J2543; J3370; J3480; J7040; J7620; P9046; 97110; 97530; 97535; 99285-25

== ENCOUNTER 2016-08-03 15:17 | Emergency (ER) | payer OTHER ==
[~2016-08-03] VITALS: Ht 177.8 cm; Wt 65.3 kg
[~2016-08-03 15:17] MED LIST changes: +CEPH-264 PO; +LOPE2CAP88 PO
--- NOTE | 2016-08-03 16:50 | RAD ---
AP chest, 08/03/2016: History: Hypotension Comparison is made to a study from 07/18/2016. A right jugular dialysis type catheter extends into the right atrium. The depth of inspiration is poor with high diaphragms. This partially obscures the cardiac margins. The heart size is unchanged. The pulmonary vascularity is normal. There are moderate streaky bibasilar opacities compatible with atelectasis. Similar findings were present on the previous study. The upper lung mckeon are clear. No pleural fluid is evident. IMPRESSION: Suboptimal depth of inspiration with moderate ongoing bibasilar atelectasis. A component of pneumonia cannot be excluded.
--- NOTE | 2016-08-03 17:02 | PHYS DOC ---
Past Medical History Past Medical History: Anemia, CHF, Diabetes-Type II, High Cholesterol, Hypertension, Renal Failure, Other Additional Past Medical Histor: Cirrhosis liver,gout,cardiomyopathy,hx drug & Etoh use,ASCITES,C-DIFF Past Surgical History: Other Additional Past Surgical Histo: Rt chest dialysis shunt Alcohol Use: Sober Drug Use: Cocaine, Marijuana Adult General Chief Complaint Chief Complaint: HYPOTENSION HPI HPI 56-year-old male presenting to the emergency department today with reports of hypotension while at dialysis today. Currently he denies any symptoms. He reports not feeling lightheaded when he had his episode of hypotension. He currently is completely asymptomatic. Onset today. Location blood pressure duration intermittent. No specific timing. Review of systems is negative for chest pain shortness of breath nausea vomiting fevers chills abdominal pain or rash. All other review of systems is negative unless otherwise noted in history of present illness. Review of Systems Review of Systems SEE ABOVE. Allergies Allergies Allergies Coded Allergies Type Severity Reaction Last Updated Verified I S O L A T I O N *CONTACT* Allergy Unknown C-DIFF ISOLATION 06/23/16 Yes No Known Medication Allergies Allergy Unknown 06/24/16 Yes Physical Exam Physical Exam Constitutional: Well developed, well nourished, no acute distress, non-toxic appearance. HENT: Normocephalic, atraumatic, bilateral external ears normal, oropharynx moist, no oral exudates, nose normal. Eyes: PERRLA, EOMI, conjunctiva normal, no discharge. [] Neck: Normal range of motion, no tenderness, supple, no stridor. Cardiovascular:Heart rate regular rhythm, no murmur [] Lungs & Thorax: Bilateral breath sounds clear to auscultation [] Abdomen: Bowel sounds normal, soft, no tenderness, no masses, no pulsatile masses. Skin: Warm, dry, no erythema, no rash. [] Back: No tenderness, no CVA tenderness. Extremities: No tenderness, no cyanosis, no clubbing, ROM intact, no edema. [] Neurologic: Alert and oriented X 3, normal motor function, normal sensory function, no focal deficits noted. Psychologic: Affect normal, judgement normal, mood normal. Current Patient Data Vital Signs Vital Signs Date Time Temp Pulse Resp B/P Pulse Ox O2 Delivery O2 Flow Rate FiO2 08/03/16 19:30 80 20 119/84 97 Room Air 08/03/16 15:17 98.9 98.9 Lab Values Laboratory Tests Test 08/03/16 16:23 08/03/16 17:40 Sodium Level 147mmol/L (136-145) H Potassium Level 3.6mmol/L (3.5-5.1) Chloride Level 112mmol/L (98-107) H Carbon Dioxide Level 21mmol/L (21-32) Anion Gap 14 (6-14) Blood Urea Nitrogen 53mg/dL (8-26) H Creatinine 7.1mg/dL (0.7-1.3) H Estimated GFR (Cockcroft-Gault) 9.7 Glucose Level 118mg/dL (70-99) H Calcium Level 7.6mg/dL (8.5-10.1) L Total Bilirubin 0.5mg/dL (0.2-1.0) Direct Bilirubin 0.2mg/dL (0.0-0.2) Aspartate Amino Transferase (AST) 38U/L (15-37) H Alanine Aminotransferase (ALT) 34U/L (16-63) Alkaline Phosphatase 285U/L (46-116) H Total Protein 6.1g/dL (6.4-8.2) L Albumin 2.0g/dL (3.4-5.0) L Lipase 71U/L (73-393) L White Blood Count 4.5x10^3/uL (4.0-11.0) Red Blood Count 3.56x10^6/uL (4.30-5.70) L Hemoglobin 9.6g/dL (13.0-17.5) L Hematocrit 31.5% (39.0-53.0) L Mean Corpuscular Volume 89fL (79-100) Mean Corpuscular Hemoglobin 27pg (25-35) Mean Corpuscular Hemoglobin Concent 31g/dL (31-37) Red Cell Distribution Width 18.9% (11.5-14.5) H Platelet Count 60x10^3/uL (140-400) #L Neutrophils (%) (Auto) 64% (31-73) Lymphocytes (%) (Auto) 26% (24-48) Monocytes (%) (Auto) 7% (0-9) Eosinophils (%) (Auto) 2% (0-3) Basophils (%) (Auto) 1% (0-3) Neutrophils # (Auto) 2.9x10^3uL (1.8-7.7) Lymphocytes # (Auto) 1.2x10^3/uL (1.0-4.8) Monocytes # (Auto) 0.3x10^3/uL (0.0-1.1) Eosinophils # (Auto) 0.1x10^3/uL (0.0-0.7) Basophils # (Auto) 0.0x10^3/uL (0.0-0.2) Troponin I Quantitative < 0.017ng/mL (0.000-0.055) OK-Ewz-Y-Type Natriuretic Peptide > 34386zd/mL (0-124) H Laboratory Tests 08/03/16 17:40 Laboratory Tests 08/03/16 16:23 EKG EKG EKG shows sinus rhythm with a regular rate. [place] is within normal limits. ST segments congruent. Intervals within normal limits. Low limb lead voltage present. [] Radiology/Procedures Radiology/Procedures [] Chest x-ray shows low lung volumes without obvious infiltrate or effusion present. No obvious pneumothorax present. Course & Med Decision Making Course & Med Decision Making Pertinent Labs and Imaging studies reviewed. (See chart for details) 48-year-old male presenting to the emergency department today with an episode of hypotension after dialysis which she has had in the past. He reports being asymptomatic during the event and currently. He was eating cheetos during my exam of the patient. On evaluation the patient's heart rate was normal. Blood pressure 110 systolic. Otherwise asymptomatic. Chest x-ray knee EKG unremarkable. Blood work obtained which showed mild anemia. Chemistry panel showed evidence of end-stage renal disease with elevated proBNP. Troponin negative. The patient was not hypoxic or tachypneic or having difficulty breathing. No evidence of volume overload on physical exam. The patient was subsequent discharged home to follow up with PCP over the next 2-3 days. Dragon Disclaimer Dragon Disclaimer This electronic medical record was generated, in whole or in part, using a voice recognition dictation system. Departure Departure Impression: Primary Impression: Hypotensive episode Additional Impression: Asymptomatic Disposition: 01 HOME, SELF-CARE Condition: STABLE Referrals: ELIZABETH COMER MD (PCP) Patient Instructions: Hypotension, [id number] Additional Instructions: Thank you for allowing us to participate in your care today. Followup with your primary care physician in 3 days if your symptoms do not improve. If you do not have a primary care provider you can ask for a list of our primary care providers. Return to the emergency department you have any new or concerning findings. This should be evaluated by the primary care physician and any necessary consulting services for continued management within a few days after discharge. Return to emergency room if you have any new or concerning symptoms including but not limited to fever, chills, nausea, vomiting, intractable pain, any new rashes, chest pain, shortness of air, uncontrolled bleeding, difficulty breathing, and/or vision loss. Problem Qualifiers HAJA ROSALES MD Aug 03, 2016 17:02
--- NOTE | 2016-08-03 17:24 | EKG ---
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
[2016-08-03 18:18] LABS: BASO % 1 % (0-3); EOS % 2 % (0-3); HEMATOCRIT 31.5 % (39.0-53.0); HEMOGLOBIN 9.6 g/dL (13.0-17.5); LYMPH # 1.2 x10^3/uL (1.0-4.8); LYMPH % 26 % (24-48); MEAN CORPUSCULAR HEMOGLOBIN 27 pg (25-35); MEAN CORPUSCULAR HGB CONC 31 g/dL (31-37); MEAN CORPUSCULAR VOLUME 89 fL (79-100); MONO % 7 % (0-9); NEUT % 64 % (31-73); PLATELET COUNT 60 x10^3/uL (140-400); RED BLOOD COUNT 3.56 x10^6/uL (4.30-5.70); RED CELL DISTRIBUTION WIDTH 18.9 % (11.5-14.5); WHITE BLOOD COUNT 4.5 x10^3/uL (4.0-11.0)
[2016-08-03 18:45] LABS: CALCIUM 7.6 mg/dL (8.5-10.1); CREATININE 7.1 mg/dL (0.7-1.3); GFR 9.7; POTASSIUM 3.6 mmol/L (3.5-5.1)
[2016-08-03 18:48] LABS: DIRECT BILIRUBIN 0.2 mg/dL (0.0-0.2); TOTAL BILIRUBIN 0.5 mg/dL (0.2-1.0); TOTAL PROTEIN 6.1 g/dL (6.4-8.2)
[2016-08-03 21:00] VITALS: BP 110/81
== END 2016-08-03 22:02 | disposition home or self-care (01) ==
LOC: ER 15:17
DX: I95.3 Hypotension of hemodialysis (principal); I50.9 Heart failure, unspecified; I13.0 Hypertensive heart and chronic kidney disease with heart failure and stage 1 through stage 4 chronic kidney disease, or unspecified chronic kidney disease; E11.9 Type 2 diabetes mellitus without complications; E78.00 Pure hypercholesterolemia, unspecified; N18.9 Chronic kidney disease, unspecified; K74.60 Unspecified cirrhosis of liver; M10.9 Gout, unspecified; F12.10 Cannabis abuse, uncomplicated; F14.10 Cocaine abuse, uncomplicated; Z99.2 Dependence on renal dialysis
CPT/HCPCS: 36415; 71010; 80048; 80076; 83690; 83880; 84484; 85027; 93005; 99285-25

== ENCOUNTER 2016-08-05 15:41 | Emergency (ER) | payer OTHER ==
[~2016-08-05] VITALS: Ht 180.3 cm; Wt 72.6 kg
--- NOTE | 2016-08-05 16:29 | EKG ---
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
[2016-08-05] MEDS ORDERED: IV NORMAL SALINE 500ML BAG 500 ML IV ONE (17:45)
[2016-08-05 17:49] LABS: BASO % 1 % (0-3); EOS % 1 % (0-3); HEMATOCRIT 33.6 % (39.0-53.0); HEMOGLOBIN 10.4 g/dL (13.0-17.5); LYMPH # 0.9 x10^3/uL (1.0-4.8); LYMPH % 21 % (24-48); MEAN CORPUSCULAR HEMOGLOBIN 27 pg (25-35); MEAN CORPUSCULAR HGB CONC 31 g/dL (31-37); MEAN CORPUSCULAR VOLUME 88 fL (79-100); MONO % 5 % (0-9); NEUT % 71 % (31-73); PLATELET COUNT 41 x10^3/uL (140-400); RED BLOOD COUNT 3.81 x10^6/uL (4.30-5.70); RED CELL DISTRIBUTION WIDTH 18.7 % (11.5-14.5); WHITE BLOOD COUNT 4.1 x10^3/uL (4.0-11.0)
[2016-08-05 18:00] LABS: CALCIUM 7.5 mg/dL (8.5-10.1); CREATININE 6.5 mg/dL (0.7-1.3); GFR 10.7; POTASSIUM 3.2 mmol/L (3.5-5.1)
[2016-08-05 18:06] LABS: ALBUMIN/GLOBULIN RATIO 0.5 (1.0-1.7); MAGNESIUM 1.8 mg/dL (1.8-2.4); TOTAL BILIRUBIN 0.4 mg/dL (0.2-1.0); TOTAL PROTEIN 6.1 g/dL (6.4-8.2)
[2016-08-05 18:10] LABS: ANISOCYTOSIS SLIGHT; PLT ESTIMATE DECREASED (ADEQUATE)
--- NOTE | 2016-08-05 19:17 | PHYS DOC ---
Past Medical History Past Medical History: Anemia, CHF, Diabetes-Type II, High Cholesterol, Hypertension, Renal Failure, Other Additional Past Medical Histor: Cirrhosis liver,gout,cardiomyopathy,hx drug & Etoh use,ASCITES,C-DIFF Past Surgical History: Other Additional Past Surgical Histo: Rt chest dialysis shunt Alcohol Use: Sober Drug Use: Cocaine, Marijuana Adult General Chief Complaint Chief Complaint: SYNCOPE HPI HPI Patient is a 56 year old male who presents after having a syncopal episode at dialysis. The patient was brought to the emergency department by EMS after patient had a syncopal episode during his dialysis therapy. The patient also was noted to have hypotension. Currently this has resolved. The patient has similar episode 2 days ago during dialysis. Patient denies any complaints at this time and states he feels better. The patient is stating that he is hungry. Patient follows at [facility] for primary care and for nephrology. The patient currently resides at a senior care. Review of Systems Review of Systems Constitutional: Denies fever or chills [] Eyes: Denies change in visual acuity, redness, or eye pain [] HENT: Denies nasal congestion or sore throat [] Respiratory: Denies cough or shortness of breath [] Cardiovascular: Syncope, denies chest pain [] GI: Denies abdominal pain, nausea, vomiting, bloody stools or diarrhea [] : Denies dysuria or hematuria [] Musculoskeletal: Denies back pain or joint pain [] Integument: Denies rash or skin lesions [] Neurologic: Denies headache, focal weakness or sensory changes [] Current Medications Current Medications Current Medications Medications (Trade) Dose Ordered Sig/Madi Start Time Stop Time Status Last Admin Dose Admin Sodium Chloride (Iv Sodium Chloride 0.9% 500ml Bag) 500 ml @ 500 mls/hr 1X ONCE 08/05/16 17:45 08/05/16 18:44 DC 08/05/16 18:24 500 MLS/HR Allergies Allergies Allergies Coded Allergies Type Severity Reaction Last Updated Verified I S O L A T I O N *CONTACT* Allergy Unknown C-DIFF ISOLATION 06/23/16 Yes No Known Medication Allergies Allergy Unknown 06/24/16 Yes Physical Exam Physical Exam Constitutional: Alert, afebrile, cachectic, appears in chronically poor health. [] HENT: Normocephalic, atraumatic, bilateral external ears normal, oropharynx moist, no oral exudates, nose normal. [] Eyes: PERRLA, EOMI, conjunctiva normal, no discharge. [] Neck: Normal range of motion, no tenderness, supple, no stridor. [] Cardiovascular:Heart rate regular rhythm, no murmur [] Lungs & Thorax: Bilateral breath sounds clear to auscultation [] Abdomen: Mild abdominal distention, bowel sounds normal, no tenderness, no masses, no pulsatile masses. [] Skin: Warm, dry, no erythema, no rash. [] Back: No tenderness, no CVA tenderness. [] Extremities: No tenderness, no cyanosis, no clubbing, ROM intact, trace pedal edema bilaterally. [] Neurologic: Alert and oriented X 3, normal motor function, normal sensory function, no focal deficits noted. [] Current Patient Data Lab Values Laboratory Tests Test 08/05/16 16:00 White Blood Count 4.1x10^3/uL (4.0-11.0) Red Blood Count 3.81x10^6/uL (4.30-5.70) L Hemoglobin 10.4g/dL (13.0-17.5) L Hematocrit 33.6% (39.0-53.0) L Mean Corpuscular Volume 88fL (79-100) Mean Corpuscular Hemoglobin 27pg (25-35) Mean Corpuscular Hemoglobin Concent 31g/dL (31-37) Red Cell Distribution Width 18.7% (11.5-14.5) H Platelet Count 41x10^3/uL (140-400) L Neutrophils (%) (Auto) 71% (31-73) Lymphocytes (%) (Auto) 21% (24-48) L Monocytes (%) (Auto) 5% (0-9) Eosinophils (%) (Auto) 1% (0-3) Basophils (%) (Auto) 1% (0-3) Neutrophils # (Auto) 2.9x10^3uL (1.8-7.7) Lymphocytes # (Auto) 0.9x10^3/uL (1.0-4.8) L Monocytes # (Auto) 0.2x10^3/uL (0.0-1.1) Eosinophils # (Auto) 0.1x10^3/uL (0.0-0.7) Basophils # (Auto) 0.0x10^3/uL (0.0-0.2) Platelet Estimate Decreased (ADEQUATE) Anisocytosis Slight Sodium Level 147mmol/L (136-145) H Potassium Level 3.2mmol/L (3.5-5.1) L Chloride Level 113mmol/L (98-107) H Carbon Dioxide Level 22mmol/L (21-32) Anion Gap 12 (6-14) Blood Urea Nitrogen 48mg/dL (8-26) H Creatinine 6.5mg/dL (0.7-1.3) H Estimated GFR (Cockcroft-Gault) 10.7 BUN/Creatinine Ratio 7 (6-20) Glucose Level 146mg/dL (70-99) H Calcium Level 7.5mg/dL (8.5-10.1) L Magnesium Level 1.8mg/dL (1.8-2.4) Total Bilirubin 0.4mg/dL (0.2-1.0) Aspartate Amino Transferase (AST) 28U/L (15-37) Alanine Aminotransferase (ALT) 29U/L (16-63) Alkaline Phosphatase 262U/L (46-116) H Troponin I Quantitative < 0.017ng/mL (0.000-0.055) Total Protein 6.1g/dL (6.4-8.2) L Albumin 2.0g/dL (3.4-5.0) L Albumin/Globulin Ratio 0.5 (1.0-1.7) L Laboratory Tests 08/05/16 16:00 Laboratory Tests 08/05/16 16:00 EKG EKG Interpreted by me: Heart rate 64, is rhythm, normal intervals, normal axis, no acute ST/T-wave abnormalities present [] Radiology/Procedures Radiology/Procedures One view AP chest x-ray interpreted by me: No infiltrates, no effusions, normal cardiac silhouette [] Course & Med Decision Making Course & Med Decision Making Pertinent Labs and Imaging studies reviewed. (See chart for details) Patient was given 500 mL of IV fluids in the emergency department. The patient is eating without difficulty. The patient will be discharged back to the senior care. Instructions were given to nursing staff to have the patient's physician internist call tomorrow to discuss potential changes to the patient's dialysis regimen as the patient may be getting too much fluid drawn during dialysis thus causing the patient's hypotensive episodes and syncope. Advised return emergency department for any worsening symptoms. Patient voiced understanding and in agreement with treatment plan. Dragon Disclaimer Dragon Disclaimer This electronic medical record was generated, in whole or in part, using a voice recognition dictation system. Departure Departure Impression: Primary Impression: Syncope Additional Impressions: Hypotensive episode End stage renal disease Dehydration Disposition: HOME, SELF-CARE Condition: IMPROVED Referrals: ELIZABETH COMER MD (PCP) Patient Instructions: Dialysis, Care After, Syncope Additional Instructions: Please contact the patient's physician internist tomorrow as patient has had consecutive hypotensive episodes with his last 2 dialysis treatments as patient may need to have changed to his dialysis regimen. Return to the emergency department for any worsening symptoms. Problem Qualifiers Primary Impression: Syncope Syncope type: unspecified Qualified Code: R55 - Syncope and collapse ELIZABETH SEARS MD Aug 05, 2016 19:17
[2016-08-05 20:45] VITALS: BP 78/58
--- NOTE | 2016-08-06 08:07 | RAD ---
Portable AP upright view CXR: Clinical indications: Syncope today. History of hypertension and diabetes. Patient on dialysis. Comparison: August 03, 2016. Findings: Again noted is decreased inspiration bilaterally with bibasilar atelectasis which is unchanged. No new lung infiltrate or pulmonary edema or pleural effusion or pneumothorax is seen. The heart size, pulmonary vasculature, mediastinum and both adria are stable. Impression: No new radiographic abnormality is seen. Stable bibasilar atelectasis with decreased inspiration
== END 2016-08-05 21:15 | disposition home or self-care (01) ==
LOC: ER 15:41
DX: R55 Syncope and collapse (principal); I95.9 Hypotension, unspecified; E86.0 Dehydration; E11.22 Type 2 diabetes mellitus with diabetic chronic kidney disease; I13.2 Hypertensive heart and chronic kidney disease with heart failure and with stage 5 chronic kidney disease, or end stage renal disease; N18.6 End stage renal disease; I50.9 Heart failure, unspecified; Z99.2 Dependence on renal dialysis; F12.10 Cannabis abuse, uncomplicated; M10.9 Gout, unspecified; K74.60 Unspecified cirrhosis of liver; I42.9 Cardiomyopathy, unspecified; E78.00 Pure hypercholesterolemia, unspecified; R18.8 Other ascites; F14.10 Cocaine abuse, uncomplicated; Z91.041 Radiographic dye allergy status
CPT/HCPCS: 36415; 71010; 80053; 83735; 84484; 85007; 85027; 93005; 96360; 99285; J7040

== ENCOUNTER 2016-08-07 14:19 | Inpatient (IN) | payer OTHER ==
[~2016-08-07] VITALS: Ht 180.3 cm; Wt 64.6 kg
--- NOTE | 2016-08-07 15:57 | EKG ---
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
[2016-08-07 16:05] LABS: BASO % 1 % (0-3); EOS % 1 % (0-3); HEMATOCRIT 29.5 % (39.0-53.0); HEMOGLOBIN 9.2 g/dL (13.0-17.5); LYMPH # 0.7 x10^3/uL (1.0-4.8); LYMPH % 19 % (24-48); MEAN CORPUSCULAR HEMOGLOBIN 27 pg (25-35); MEAN CORPUSCULAR HGB CONC 31 g/dL (31-37); MEAN CORPUSCULAR VOLUME 86 fL (79-100); MONO % 7 % (0-9); NEUT % 72 % (31-73); PLATELET COUNT 39 x10^3/uL (140-400); RED BLOOD COUNT 3.44 x10^6/uL (4.30-5.70); RED CELL DISTRIBUTION WIDTH 18.8 % (11.5-14.5); WHITE BLOOD COUNT 3.7 x10^3/uL (4.0-11.0)
--- NOTE | 2016-08-07 16:06 | RAD ---
Portable AP upright view CXR: Clinical indications: Hypotension. Comparison: July 2016. Findings: Again seen is bibasilar atelectasis. No new lung infiltrate or pleural effusion or pulmonary edema or lung mass or pneumothorax is seen. The heart size, pulmonary vasculature, mediastinum and both adria are stable. Right IJ hemodialysis catheter is unchanged in position. Impression: No new radiographic abnormality is seen.
[2016-08-07 16:10] LABS: CALCIUM 7.5 mg/dL (8.5-10.1); CREATININE 7.7 mg/dL (0.7-1.3); GFR 8.8; POTASSIUM 3.2 mmol/L (3.5-5.1)
[2016-08-07 16:15] LABS: ALBUMIN 1.8 g/dL (3.4-5.0); ALBUMIN/GLOBULIN RATIO 0.5 (1.0-1.7); TOTAL BILIRUBIN 0.4 mg/dL (0.2-1.0); TOTAL PROTEIN 5.8 g/dL (6.4-8.2)
[2016-08-07 16:24] LABS: PLT ESTIMATE DECREASED (ADEQUATE)
[2016-08-07 16:52] LABS: INR 1.6 (0.8-1.1); PROTHROMBIN TIME PATIENT 18.5 SEC (11.7-14.0)
--- NOTE | 2016-08-07 17:53 | ED.ADGEN ---
Past Medical History Past Medical History: Anemia, CHF, Diabetes-Type II, High Cholesterol, Hypertension, Renal Failure, Other Additional Past Medical Histor: Cirrhosis liver,gout,cardiomyopathy,hx drug & Etoh use,ASCITES,C-DIFF Past Surgical History: Other Additional Past Surgical Histo: Rt chest dialysis shunt Alcohol Use: Sober Drug Use: Cocaine, Marijuana Adult General Chief Complaint Chief Complaint: HYPOTENSION HPI HPI Patient is a 56 year old man, history of end-stage liver disease with cirrhosis , with recurrent ascites last July 17, CHF, incisional disease on hemodialysis, persistent hypotension, who presents emergency department with report of hypotension from his dialysis center. Per report, patient missed several of his dialysis this week due to low blood pressures, at the dialysis center blood pressures noted to be 80s over 50s, initial blood pressure was 101/ 50 in the emergency department. Heart rate is in the 80s, patient is denying complaints, aside from the typical pain he experiences with reaccumulation of his ascites, noted to have significant reaccumulation of abdominal ascites and lower extremity edema. Patient's family is at bedside. Patient's initial temperature noted to be 94.9, Jacob hugger was initiated in the ED. Review of Systems Review of Systems Constitutional: Denies fever or chills. [] Eyes: Denies change in visual acuity. [] HENT: Denies nasal congestion or sore throat. [] Respiratory: Denies cough or shortness of breath. [] Cardiovascular: Denies chest pain or edema. [] GI: Denies abdominal pain, nausea, vomiting, bloody stools or diarrhea. [] : Denies dysuria. [] Musculoskeletal: Denies back pain or joint pain. [] Integument: Denies rash. [] Neurologic: Denies headache, focal weakness or sensory changes. [] Endocrine: Denies polyuria or polydipsia. [] Lymphatic: Denies swollen glands. [] Psychiatric: Denies depression or anxiety. [] Allergies Allergies Allergies Coded Allergies Type Severity Reaction Last Updated Verified I S O L A T I O N *CONTACT* Allergy Unknown C-DIFF ISOLATION 06/23/16 Yes No Known Medication Allergies Allergy Unknown 06/24/16 Yes Physical Exam Physical Exam Constitutional: Well developed, cachectic, no acute distress, chronically ill in appearance. [] HENT: Patient with temporal wasting, atraumatic, bilateral external ears normal , oropharynx moist, no oral exudates, nose normal. [] Eyes: PERRLA, EOMI, conjunctiva normal, no discharge. [] Neck: Normal range of motion, no tenderness, supple, no stridor. [] Cardiovascular:Heart rate regular rhythm, no murmur, S1, S2, soft heart sounds. No rubs or gallops. Lungs & Thorax: Diminished breath sounds at bases bilaterally, no rhonchi or rales appreciated. No chest wall tenderness or crepitus. Abdomen: Bowel sounds present, soft, mild tenderness to palpation, patient with protuberant abdomen with positive fluid wave, dressing in place over site of previous ascites removal, clean dry and intact, no masses palpated, no pulsatile masses. [] Skin: Warm, dry, no erythema, no rash, small skin tears noted on buttocks, no evidence of induration or abscess formation identified. Back: No tenderness, no CVA tenderness. [] Extremities: No tenderness, no cyanosis, no clubbing, ROM intact, anasarca bilaterally lower extremities extending into the abdomen. [] Neurologic: Alert and oriented X 3, normal motor function, normal sensory function, no focal deficits noted. [] Psychologic: Affect normal, judgement normal, mood normal. [] Current Patient Data Vital Signs Vital Signs Date Time Temp Pulse Resp B/P Pulse Ox O2 Delivery O2 Flow Rate FiO2 08/07/16 16:59 94.9 94.9 08/07/16 16:31 68 20 84/64 93 08/07/16 14:36 Room Air Lab Values Laboratory Tests Test 08/07/16 15:50 White Blood Count 3.7x10^3/uL (4.0-11.0) L Red Blood Count 3.44x10^6/uL (4.30-5.70) L Hemoglobin 9.2g/dL (13.0-17.5) L Hematocrit 29.5% (39.0-53.0) L Mean Corpuscular Volume 86fL (79-100) Mean Corpuscular Hemoglobin 27pg (25-35) Mean Corpuscular Hemoglobin Concent 31g/dL (31-37) Red Cell Distribution Width 18.8% (11.5-14.5) H Platelet Count 39x10^3/uL (140-400) L Neutrophils (%) (Auto) 72% (31-73) Lymphocytes (%) (Auto) 19% (24-48) L Monocytes (%) (Auto) 7% (0-9) Eosinophils (%) (Auto) 1% (0-3) Basophils (%) (Auto) 1% (0-3) Neutrophils # (Auto) 2.7x10^3uL (1.8-7.7) Lymphocytes # (Auto) 0.7x10^3/uL (1.0-4.8) L Monocytes # (Auto) 0.3x10^3/uL (0.0-1.1) Eosinophils # (Auto) 0.0x10^3/uL (0.0-0.7) Basophils # (Auto) 0.0x10^3/uL (0.0-0.2) Platelet Estimate Decreased (ADEQUATE) Prothrombin Time 18.5SEC (11.7-14.0) H Prothrombin Time INR 1.6 (0.8-1.1) H PTT 47SEC (24-38) H Sodium Level 147mmol/L (136-145) H Potassium Level 3.2mmol/L (3.5-5.1) L Chloride Level 114mmol/L (98-107) H Carbon Dioxide Level 17mmol/L (21-32) L Anion Gap 16 (6-14) H Blood Urea Nitrogen 60mg/dL (8-26) H Creatinine 7.7mg/dL (0.7-1.3) H Estimated GFR (Cockcroft-Gault) 8.8 BUN/Creatinine Ratio 8 (6-20) Glucose Level 143mg/dL (70-99) H Calcium Level 7.5mg/dL (8.5-10.1) L Total Bilirubin 0.4mg/dL (0.2-1.0) Aspartate Amino Transferase (AST) 26U/L (15-37) Alanine Aminotransferase (ALT) 25U/L (16-63) Alkaline Phosphatase 226U/L (46-116) H Total Protein 5.8g/dL (6.4-8.2) L Albumin 1.8g/dL (3.4-5.0) L Albumin/Globulin Ratio 0.5 (1.0-1.7) L Laboratory Tests 08/07/16 15:50 Laboratory Tests 08/07/16 15:50 EKG EKG EC: Low voltage EKG, sinus rhythm with low voltage, QTC of 509, QRS of 96 , no ST elevations or depressions. Abnormal ECG, does not meet STEMI criteria. As interpreted by me. [] Radiology/Procedures Radiology/Procedures [][facility] [address] [place] [address] IMAGING REPORT Signed PATIENT: MARSHA HENRY ACCOUNT: [id number] : 1960 LOCATION: ER AGE: 56 SEX: M EXAM STATUS: PRE ER ORD. PHYSICIAN: LAUREN LEE DO REASON: Hypotension PROCEDURE: CHEST AP ONLY Portable AP upright view CXR: Clinical indications: Hypotension. Comparison: July 2016. Findings: Again seen is bibasilar atelectasis. No new lung infiltrate or pleural effusion or pulmonary edema or lung mass or pneumothorax is seen. The heart size, pulmonary vasculature, mediastinum and both adria are stable. Right IJ hemodialysis catheter is unchanged in position. Impression: No new radiographic abnormality is seen. DICTATED and SIGNED BY: OLIVER MORGAN MD DATE: 08/07/16 1603 CC: LAUREN LEE DO; ELIZABETH COMER MD ~ Course & Med Decision Making Course & Med Decision Making Pertinent Labs and Imaging studies reviewed. (See chart for details) Patient with hypotension, noted to be consistent all previous blood pressures when compared to previous visits, he typically runs from the mid 80s to the mid 90s systolic. I stated patient is denying complaints this time, oxygen saturation is in the mid to upper 90s on room air, with no respiratory difficulty identified, chest x-ray does not reveal effusion or other concerning finding. Laboratory studies revealed potassium of 3.2, and a blood urea nitrogen of 50, no indication for emergent dialysis based on these values. Patient with recurrent ascites as stated, I did discuss this with interventional radiology, I diagnostic interventional radiologist will be available tomorrow morning, there is no indication for emergent paracentesis at this point based on patient's examination, there is no leukocytosis, fever, abdominal pain or other medications that the patient is experiencing spontaneous pectoral peritonitis or other acute emergency at this time. I did discuss findings with family and patient at bedside who are agreeable with this plan, also discussed with Dr. Ivan of internal medicine, patient accepted to his service as a full admission to the [facility] floor due to the persistent hypotension, although this is consistent with the patient's known disease process and history, for close monitoring, to receive paracentesis and consultation with nephrology in the a.m. Dragon Disclaimer Dragon Disclaimer This electronic medical record was generated, in whole or in part, using a voice recognition dictation system. Departure Impression: Primary Impression: Ascites Additional Impressions: End stage liver disease Hypotension Hypothermia Disposition: 09 ADMITTED INPATIENT Condition: IMPROVED Problem Qualifiers Primary Impression: Ascites Ascites type: malignant Qualified Code: R18.0 - Malignant ascites Additional Impressions: Hypotension Hypotension type: unspecified hypotension type Qualified Code: I95.9 - Hypotension, unspecified Hypothermia Encounter type: initial encounter Qualified Code: T68.XXXA - Hypothermia, initial encounter LAUREN LEE DO Aug 07, 2016 17:53
[2016-08-07 19:20] VITALS: BP 100/77
[2016-08-07] MEDS: MORPHINE SULFATE 2 MG/ML DISP.SYRIN. IV PRN ×2 (19:38→22:38)
--- NOTE | 2016-08-07 19:55 | PDOC1 ---
History and Physical Past Medical History Cardiovascular: CHF, HTN, Hyperlipidemia Pulmonary: COPD CENTRAL NERVOUS SYSTEM: Dementia GI: Other Heme/Onc: Anemia NOS Hepatobiliary: Cirrhosis, Hep A/B/C Psych: Addictions Rheumatologic: Gout Infectious disease: No pertinent hx Renal/: Chronic renal failure Endocrine: Diabetes, Hypothyroidism Past Surgical History Past Surgical History: Other, No pertinent history Family History Family History: No Significant, Other (blood clots) Social History ALCOHOL: none Drugs: Cocaine Current Problem List Problem List Problems Medical Problems: (1) Ascites Status: Acute (2) End stage liver disease Status: Acute (3) Hypotension Status: Acute (4) Hypothermia Status: Acute Current Medications Current Medications Current Medications Medications (Trade) Dose Ordered Sig/Madi Start Time Stop Time Status Last Admin Dose Admin Morphine Sulfate 2 mg PRN Q2HR PRN 08/07/16 19:00 08/07/16 19:38 2 MG Allergies Allergies Allergies Coded Allergies Type Severity Reaction Last Updated Verified I S O L A T I O N *CONTACT* Allergy Unknown C-DIFF ISOLATION 06/23/16 Yes No Known Medication Allergies Allergy Unknown 06/24/16 Yes ROS Review of System CONSTITUTIONAL: weakness EYES: No recent changes SKIN: pressure ulcers back CARDIOVASCULAR: No chest pain, syncope, palpitations, or edema RESPIRATORY: No SOB or cough GASTROINTESTINAL: abdominal distention NEUROLOGICAL: No headaches or weakness ENDOCRINE: No cold or heat intolerance GENITOURINARY: No urgency or frequency of urination MUSCULOSKELETAL: No back pain or joint pain LYMPHATICS: No enlarged lymph nodes PSYCHIATRIC: No anxiety or depression Physical Exam Physical Exam GEN.: No apparent distress. Alert and oriented. weak, fatigues HEENT: Head is normocephalic, atraumatic NECK: Supple. no jvd LUNGS: Clear to auscultation anterior HEART: RRR, S1, S2 present. Peripheral pulses intact ABDOMEN: Soft, nontender. dissented EXTREMITIES: +2 edema NEUROLOGIC: Normal speech, normal tone PSYCHIATRIC: Normal affect, normal mood. SKIN: buttock ulcerations Vitals Vitals Vital Signs Date Time Temp Pulse Resp B/P Pulse Ox O2 Delivery O2 Flow Rate FiO2 08/07/16 19:38 20 96 Room Air 08/07/16 16:59 94.9 94.9 08/07/16 16:31 68 84/64 Labs Labs Laboratory Tests Test 08/07/16 15:50 08/07/16 17:00 White Blood Count 3.7x10^3/uL (4.0-11.0) Red Blood Count 3.44x10^6/uL (4.30-5.70) Hemoglobin 9.2g/dL (13.0-17.5) Hematocrit 29.5% (39.0-53.0) Mean Corpuscular Volume 86fL (79-100) Mean Corpuscular Hemoglobin 27pg (25-35) Mean Corpuscular Hemoglobin Concent 31g/dL (31-37) Red Cell Distribution Width 18.8% (11.5-14.5) Platelet Count 39x10^3/uL (140-400) Neutrophils (%) (Auto) 72% (31-73) Lymphocytes (%) (Auto) 19% (24-48) Monocytes (%) (Auto) 7% (0-9) Eosinophils (%) (Auto) 1% (0-3) Basophils (%) (Auto) 1% (0-3) Neutrophils # (Auto) 2.7x10^3uL (1.8-7.7) Lymphocytes # (Auto) 0.7x10^3/uL (1.0-4.8) Monocytes # (Auto) 0.3x10^3/uL (0.0-1.1) Eosinophils # (Auto) 0.0x10^3/uL (0.0-0.7) Basophils # (Auto) 0.0x10^3/uL (0.0-0.2) Platelet Estimate Decreased (ADEQUATE) Prothrombin Time 18.5SEC (11.7-14.0) Prothromb Time International Ratio 1.6 (0.8-1.1) Activated Partial Thromboplast Time 47SEC (24-38) Sodium Level 147mmol/L (136-145) Potassium Level 3.2mmol/L (3.5-5.1) Chloride Level 114mmol/L (98-107) Carbon Dioxide Level 17mmol/L (21-32) Anion Gap 16 (6-14) Blood Urea Nitrogen 60mg/dL (8-26) Creatinine 7.7mg/dL (0.7-1.3) Estimated GFR (Cockcroft-Gault) 8.8 BUN/Creatinine Ratio 8 (6-20) Glucose Level 143mg/dL (70-99) Calcium Level 7.5mg/dL (8.5-10.1) Total Bilirubin 0.4mg/dL (0.2-1.0) Aspartate Amino Transf (AST/SGOT) 26U/L (15-37) Alanine Aminotransferase (ALT/SGPT) 25U/L (16-63) Alkaline Phosphatase 226U/L (46-116) Total Protein 5.8g/dL (6.4-8.2) Albumin 1.8g/dL (3.4-5.0) Albumin/Globulin Ratio 0.5 (1.0-1.7) Lactic Acid Level 1.3mmol/L (0.4-2.0) Laboratory Tests Test 08/07/16 15:50 08/07/16 17:00 White Blood Count 3.7x10^3/uL (4.0-11.0) Red Blood Count 3.44x10^6/uL (4.30-5.70) Hemoglobin 9.2g/dL (13.0-17.5) Hematocrit 29.5% (39.0-53.0) Mean Corpuscular Volume 86fL (79-100) Mean Corpuscular Hemoglobin 27pg (25-35) Mean Corpuscular Hemoglobin Concent 31g/dL (31-37) Red Cell Distribution Width 18.8% (11.5-14.5) Platelet Count 39x10^3/uL (140-400) Neutrophils (%) (Auto) 72% (31-73) Lymphocytes (%) (Auto) 19% (24-48) Monocytes (%) (Auto) 7% (0-9) Eosinophils (%) (Auto) 1% (0-3) Basophils (%) (Auto) 1% (0-3) Neutrophils # (Auto) 2.7x10^3uL (1.8-7.7) Lymphocytes # (Auto) 0.7x10^3/uL (1.0-4.8) Monocytes # (Auto) 0.3x10^3/uL (0.0-1.1) Eosinophils # (Auto) 0.0x10^3/uL (0.0-0.7) Basophils # (Auto) 0.0x10^3/uL (0.0-0.2) Platelet Estimate Decreased (ADEQUATE) Prothrombin Time 18.5SEC (11.7-14.0) Prothromb Time International Ratio 1.6 (0.8-1.1) Activated Partial Thromboplast Time 47SEC (24-38) Sodium Level 147mmol/L (136-145) Potassium Level 3.2mmol/L (3.5-5.1) Chloride Level 114mmol/L (98-107) Carbon Dioxide Level 17mmol/L (21-32) Anion Gap 16 (6-14) Blood Urea Nitrogen 60mg/dL (8-26) Creatinine 7.7mg/dL (0.7-1.3) Estimated GFR (Cockcroft-Gault) 8.8 BUN/Creatinine Ratio 8 (6-20) Glucose Level 143mg/dL (70-99) Calcium Level 7.5mg/dL (8.5-10.1) Total Bilirubin 0.4mg/dL (0.2-1.0) Aspartate Amino Transf (AST/SGOT) 26U/L (15-37) Alanine Aminotransferase (ALT/SGPT) 25U/L (16-63) Alkaline Phosphatase 226U/L (46-116) Total Protein 5.8g/dL (6.4-8.2) Albumin 1.8g/dL (3.4-5.0) Albumin/Globulin Ratio 0.5 (1.0-1.7) Lactic Acid Level 1.3mmol/L (0.4-2.0) VTE Prophylaxis Ordered VTE Prophylaxis Devices: Yes VTE Pharmacological Prophylaxi: Yes ANISA SCHMITT MD Aug 07, 2016 19:55
[2016-08-07] MEDS ORDERED: ACETAMINOPHEN 325 MG TABLET. PO PRN (20:00)
[2016-08-07] MEDS ORDERED: NON FORMULARY ITEM (Glucagon,Human Recombinant (Glucagon Emergency Kit) 1 MG) IM SCH (20:00)
[2016-08-07] MEDS ORDERED: OXYCODONE IR 5 MG TABLET. PO PRN (20:30)
[2016-08-07] MEDS ORDERED: NON FORMULARY ITEM (Ipratropium/Albuterol Sulfate (Combivent Respimat Inhal) 1 INH) IH SCH (21:00)
[2016-08-07] MEDS: CARVEDILOL 12.5 MG TABLET PO SCH (21:19)
[2016-08-07] MEDS: SODIUM BICARBONATE 650 MG TABLET. PO SCH (21:19)
[2016-08-07] MEDS: ATORVASTATIN CALCIUM 10 MG TABLET. PO SCH (21:19)
[2016-08-07] MEDS: OXYCODONE ER 15 MG TAB.ER.12H. PO SCH (21:20)
[2016-08-07] MEDS: IPRATRPIUM/ALBUTEROL 0.5/2.5MG 3 ML NEBU. NEB SCH (21:37)
[2016-08-07 23:40] VITALS: BP 90/59
[2016-08-08 03:25] VITALS: BP 91/77
[2016-08-08 07:00] VITALS: BP 79/63
[2016-08-08] MEDS: IPRATRPIUM/ALBUTEROL 0.5/2.5MG 3 ML NEBU. NEB SCH ×2 (07:29→19:08)
[2016-08-08] MEDS: INSULIN ASPART 300 UNITS/3 ML INSULN.PEN SQ SCH ×3 (07:30→16:30)
[2016-08-08] MEDS: CALCIUM ACETATE 667 MG CAPSULE PO SCH ×3 (08:00→18:38)
[2016-08-08] MEDS: CALCIUM CARB/VIT D3 500/200 TABLET PO SCH ×2 (08:00→18:38)
[2016-08-08] MEDS: CARVEDILOL 12.5 MG TABLET PO SCH ×2 (08:00→17:00)
[2016-08-08] MEDS: OXYCODONE ER 15 MG TAB.ER.12H. PO SCH ×2 (09:00→21:55)
[2016-08-08] MEDS: SPIRONOLACTONE 25 MG TABLET PO SCH (09:00)
[2016-08-08] MEDS: AMLODIPINE BESYLATE 5 MG TABLET PO SCH (09:00)
[2016-08-08] MEDS: FUROSEMIDE 40 MG TABLET PO SCH (09:00)
[2016-08-08] MEDS: SODIUM BICARBONATE 650 MG TABLET. PO SCH ×2 (09:00→21:54)
[2016-08-08] MEDS: ALLOPURINOL 100 MG TABLET. PO SCH (09:00)
[2016-08-08] MEDS: AMIODARONE HCL 200 MG TABLET PO SCH (09:00)
[2016-08-08 11:00] VITALS: BP 83/62
--- NOTE | 2016-08-08 12:36 | PDOC ---
PROGRESS NOTES Chief Complaint Chief Complaint 1. Missed HD for 1 week, multiple electrolyte imbalance 2. Ascites, recurrent, hepatitis C, cirrhosis: need paracentesis 3. End-stage renal disease, on hemodialysis. 4. Severe thrombocytopenia secondary to cirrhosis. 5. Diabetes mellitus.: SSI 6. Diastolic heart failure, chronic, stable. 7. Hypertension, currently hypotensive, 8. Hypothermia. 9. Severe malnutrition. 10. History of substance abuse, cocaine, marijuana, and ethyl alcohol. 11. Anemia with chronic disease and cirrhosis. Plan HD per nephrology Néstor hugger Paracentesis blood cx Thrombocytopenia monitor electrolyte wound care PT/OT CBC/BMP nutritional support overall prognosis poor/guarded. d/w daughter at bedside. History of Present Illness History of Present Illness no fever no chills no chest pain Vitals Vitals Vital Signs Date Time Temp Pulse Resp B/P Pulse Ox O2 Delivery O2 Flow Rate FiO2 08/08/16 11:00 97.3 67 12 83/62 93 Room Air 97.3 Physical Exam General: Alert, Oriented X3 Heart: Normal S1, Normal S2 Lungs: Clear Abdomen: Normal bowel sounds, Soft, Other (dissteneded. ) Skin: No rashes Labs LABS Laboratory Tests Test 08/07/16 15:50 08/07/16 17:00 08/07/16 21:50 08/08/16 08:24 White Blood Count 3.7x10^3/uL (4.0-11.0) Red Blood Count 3.44x10^6/uL (4.30-5.70) Hemoglobin 9.2g/dL (13.0-17.5) Hematocrit 29.5% (39.0-53.0) Mean Corpuscular Volume 86fL (79-100) Mean Corpuscular Hemoglobin 27pg (25-35) Mean Corpuscular Hemoglobin Concent 31g/dL (31-37) Red Cell Distribution Width 18.8% (11.5-14.5) Platelet Count 39x10^3/uL (140-400) Neutrophils (%) (Auto) 72% (31-73) Lymphocytes (%) (Auto) 19% (24-48) Monocytes (%) (Auto) 7% (0-9) Eosinophils (%) (Auto) 1% (0-3) Basophils (%) (Auto) 1% (0-3) Neutrophils # (Auto) 2.7x10^3uL (1.8-7.7) Lymphocytes # (Auto) 0.7x10^3/uL (1.0-4.8) Monocytes # (Auto) 0.3x10^3/uL (0.0-1.1) Eosinophils # (Auto) 0.0x10^3/uL (0.0-0.7) Basophils # (Auto) 0.0x10^3/uL (0.0-0.2) Platelet Estimate Decreased (ADEQUATE) Prothrombin Time 18.5SEC (11.7-14.0) Prothromb Time International Ratio 1.6 (0.8-1.1) Activated Partial Thromboplast Time 47SEC (24-38) Sodium Level 147mmol/L (136-145) Potassium Level 3.2mmol/L (3.5-5.1) Chloride Level 114mmol/L (98-107) Carbon Dioxide Level 17mmol/L (21-32) Anion Gap 16 (6-14) Blood Urea Nitrogen 60mg/dL (8-26) Creatinine 7.7mg/dL (0.7-1.3) Estimated GFR (Cockcroft-Gault) 8.8 BUN/Creatinine Ratio 8 (6-20) Glucose Level 143mg/dL (70-99) Calcium Level 7.5mg/dL (8.5-10.1) Total Bilirubin 0.4mg/dL (0.2-1.0) Aspartate Amino Transf (AST/SGOT) 26U/L (15-37) Alanine Aminotransferase (ALT/SGPT) 25U/L (16-63) Alkaline Phosphatase 226U/L (46-116) Total Protein 5.8g/dL (6.4-8.2) Albumin 1.8g/dL (3.4-5.0) Albumin/Globulin Ratio 0.5 (1.0-1.7) Lactic Acid Level 1.3mmol/L (0.4-2.0) Glucose (Fingerstick) 167mg/dL (70-99) 71mg/dL (70-99) Assessment and Plan Assessmemt and Plan Problems Medical Problems: (1) Ascites Status: Acute (2) End stage liver disease Status: Acute (3) Hypotension Status: Acute (4) Hypothermia Status: Acute Problems: Comment Review of Relevant I have reviewed the following items дмитрий (where applicable) has been applied. Labs Laboratory Tests Test 08/07/16 15:50 08/07/16 17:00 08/07/16 21:50 08/08/16 08:24 White Blood Count 3.7x10^3/uL (4.0-11.0) Red Blood Count 3.44x10^6/uL (4.30-5.70) Hemoglobin 9.2g/dL (13.0-17.5) Hematocrit 29.5% (39.0-53.0) Mean Corpuscular Volume 86fL (79-100) Mean Corpuscular Hemoglobin 27pg (25-35) Mean Corpuscular Hemoglobin Concent 31g/dL (31-37) Red Cell Distribution Width 18.8% (11.5-14.5) Platelet Count 39x10^3/uL (140-400) Neutrophils (%) (Auto) 72% (31-73) Lymphocytes (%) (Auto) 19% (24-48) Monocytes (%) (Auto) 7% (0-9) Eosinophils (%) (Auto) 1% (0-3) Basophils (%) (Auto) 1% (0-3) Neutrophils # (Auto) 2.7x10^3uL (1.8-7.7) Lymphocytes # (Auto) 0.7x10^3/uL (1.0-4.8) Monocytes # (Auto) 0.3x10^3/uL (0.0-1.1) Eosinophils # (Auto) 0.0x10^3/uL (0.0-0.7) Basophils # (Auto) 0.0x10^3/uL (0.0-0.2) Platelet Estimate Decreased (ADEQUATE) Prothrombin Time 18.5SEC (11.7-14.0) Prothromb Time International Ratio 1.6 (0.8-1.1) Activated Partial Thromboplast Time 47SEC (24-38) Sodium Level 147mmol/L (136-145) Potassium Level 3.2mmol/L (3.5-5.1) Chloride Level 114mmol/L (98-107) Carbon Dioxide Level 17mmol/L (21-32) Anion Gap 16 (6-14) Blood Urea Nitrogen 60mg/dL (8-26) Creatinine 7.7mg/dL (0.7-1.3) Estimated GFR (Cockcroft-Gault) 8.8 BUN/Creatinine Ratio 8 (6-20) Glucose Level 143mg/dL (70-99) Calcium Level 7.5mg/dL (8.5-10.1) Total Bilirubin 0.4mg/dL (0.2-1.0) Aspartate Amino Transf (AST/SGOT) 26U/L (15-37) Alanine Aminotransferase (ALT/SGPT) 25U/L (16-63) Alkaline Phosphatase 226U/L (46-116) Total Protein 5.8g/dL (6.4-8.2) Albumin 1.8g/dL (3.4-5.0) Albumin/Globulin Ratio 0.5 (1.0-1.7) Lactic Acid Level 1.3mmol/L (0.4-2.0) Glucose (Fingerstick) 167mg/dL (70-99) 71mg/dL (70-99) Laboratory Tests Test 08/07/16 15:50 08/07/16 17:00 08/07/16 21:50 08/08/16 08:24 White Blood Count 3.7x10^3/uL (4.0-11.0) Red Blood Count 3.44x10^6/uL (4.30-5.70) Hemoglobin 9.2g/dL (13.0-17.5) Hematocrit 29.5% (39.0-53.0) Mean Corpuscular Volume 86fL (79-100) Mean Corpuscular Hemoglobin 27pg (25-35) Mean Corpuscular Hemoglobin Concent 31g/dL (31-37) Red Cell Distribution Width 18.8% (11.5-14.5) Platelet Count 39x10^3/uL (140-400) Neutrophils (%) (Auto) 72% (31-73) Lymphocytes (%) (Auto) 19% (24-48) Monocytes (%) (Auto) 7% (0-9) Eosinophils (%) (Auto) 1% (0-3) Basophils (%) (Auto) 1% (0-3) Neutrophils # (Auto) 2.7x10^3uL (1.8-7.7) Lymphocytes # (Auto) 0.7x10^3/uL (1.0-4.8) Monocytes # (Auto) 0.3x10^3/uL (0.0-1.1) Eosinophils # (Auto) 0.0x10^3/uL (0.0-0.7) Basophils # (Auto) 0.0x10^3/uL (0.0-0.2) Platelet Estimate Decreased (ADEQUATE) Prothrombin Time 18.5SEC (11.7-14.0) Prothromb Time International Ratio 1.6 (0.8-1.1) Activated Partial Thromboplast Time 47SEC (24-38) Sodium Level 147mmol/L (136-145) Potassium Level 3.2mmol/L (3.5-5.1) Chloride Level 114mmol/L (98-107) Carbon Dioxide Level 17mmol/L (21-32) Anion Gap 16 (6-14) Blood Urea Nitrogen 60mg/dL (8-26) Creatinine 7.7mg/dL (0.7-1.3) Estimated GFR (Cockcroft-Gault) 8.8 BUN/Creatinine Ratio 8 (6-20) Glucose Level 143mg/dL (70-99) Calcium Level 7.5mg/dL (8.5-10.1) Total Bilirubin 0.4mg/dL (0.2-1.0) Aspartate Amino Transf (AST/SGOT) 26U/L (15-37) Alanine Aminotransferase (ALT/SGPT) 25U/L (16-63) Alkaline Phosphatase 226U/L (46-116) Total Protein 5.8g/dL (6.4-8.2) Albumin 1.8g/dL (3.4-5.0) Albumin/Globulin Ratio 0.5 (1.0-1.7) Lactic Acid Level 1.3mmol/L (0.4-2.0) Glucose (Fingerstick) 167mg/dL (70-99) 71mg/dL (70-99) Medications Current Medications Morphine Sulfate 2 mg PRN Q2HR PRN IV PAIN Last administered on 08/07/16t 22:38 ; Start 08/07/16 at 19:00 Acetaminophen (Tylenol) 650 mg PRN Q4HRS PRN PO PAIN; Start 08/07/16 at 20:00 Allopurinol (Zyloprim) 100 mg DAILY PO ; Start 08/08/16 at 09:00 Amiodarone HCl (Cordarone) 200 mg DAILY PO ; Start 08/08/16 at 09:00 Amlodipine Besylate (Norvasc) 5 mg DAILY PO ; Start 08/08/16 at 09:00 Atorvastatin Calcium (Lipitor) 10 mg QHS PO Last administered on 08/07/16 21: 19; Start 08/07/16 at 21:00 Calcium Acetate (Phoslo) 667 mg TIDWMEALS PO ; Start 08/08/16 at 08:00 Carvedilol (Coreg) 12.5 mg BIDWMEALS PO Last administered on 08/07/16 21:19; Start 08/07/16 at 21:00 Darbepoetin Aaron (Aranesp) 60 mcg WEEKLY SQ ; Start 08/14/16 at 09:00 Folic Acid (Folic Acid) 1 mg DAILY PO ; Start 08/08/16 at 09:00 Furosemide (Lasix) 40 mg DAILY PO ; Start 08/08/16 at 09:00 Insulin Aspart (Novolog) 3 units TIDAC SQ ; Start 08/08/16 at 07:30 Levothyroxine Sodium (Synthroid) 75 mcg DAILYAC PO ; Start 08/08/16 at 07:30 Loperamide HCl (Imodium) 2 mg PRN Q6HRS PRN PO DIARRHEA; Start 08/07/16 at 20: 00 Oxycodone HCl (Oxycontin) 15 mg BID PO Last administered on 08/07/16 21:20; Start 08/07/16 at 21:00 Phytonadione (Mephyton) 10 mg DAILY PO ; Start 08/08/16 at 09:00 Sodium Bicarbonate (Sodium Bicarbonate) 650 mg BID PO Last administered on 08/07 21:19; Start 08/07/16 at 21:00 Tamsulosin HCl (Flomax) 0.4 mg DAILY PO ; Start 08/08/16 at 09:00 Calcium/Vitamin D (Oscal D 500mg/ 200uts) 1 tab BIDWMEALS PO ; Start 08/08/16 at 08:00 Non-Formulary Medication 1 mg PRN IM ; Start 08/07/16 at 20:00; Status UNV Non-Formulary Medication 1 inh BID IH ; Start 08/07/16 at 21:00; Status UNV Oxycodone HCl (Roxicodone) 15 mg PRN Q3HRS PRN PO PAIN Last administered on 23:54; Start 08/07/16 at 20:30 Spironolactone (Aldactone) 50 mg DAILY PO ; Start 08/08/16 at 09:00 Albuterol/ Ipratropium (Duoneb) 3 ml BID NEB Last administered on 08/08/16 07: 29; Start 08/07/16 at 21:00 Active Scripts Active Reported Keflex (Cephalexin) 500 Mg Capsule 1 Cap PO TID 7 Days Imodium A-D (Loperamide HCl) 2 Mg Capsule 2 Mg PO PRN Q6HRS PRN Acidophilus Lactobacillus (Lactobacillus Acidophilus) 1 Each Capsule 1 Each PO DAILY Furosemide 40 Mg Tablet 40 Mg PO DAILY Aranesp Syringe (Darbepoetin Aaron In Polysorbat) 60 Mcg/0.3 Ml Disp.syrin 60 Mcg SQ WEEKLY Mephyton (Phytonadione) 5 Mg Tablet 10 Mg PO DAILY Phoslo (Calcium Acetate) 667 Mg Capsule 2 Cap PO TIDWMEALS Allopurinol 100 Mg Tablet 1 Tab PO DAILY Spironolactone 50 Mg Tablet 50 Mg PO DAILY Oxycontin (Oxycodone HCl) 15 Mg Tab.er.12h 15 Mg PO BID Oxycodone Hcl 5 Mg Capsule 15 Mg PO Q3HRS PRN Oyster Shell Calcium-Vit D Tab (Calcium Carbonate/Vitamin D2) 1 Each Tablet 1 Each PO BID Acidophilus Lactobacillus (Lactobacillus Acidophilus) 1 Each Capsule 1 Each PO DAILY Glucose Gel (Dextrose) 38 Gm Gel..gram. 38 Gm PO PRN PRN Glucagon Emergency Kit (Glucagon,Human Recombinant) 1 Mg Kit 1 Mg IM PRN Acetaminophen 325 Mg Tablet 650 Mg PO PRN Q4HRS PRN Tamsulosin Hcl 0.4 Mg Cap.er.24h 1 Cap PO DAILY Sodium Bicarbonate 650 Mg Tablet 1 Tab PO BID Protonix (Pantoprazole Sodium) 40 Mg Tablet.dr 1 Tab PO BID Multi-Vitamin Daily (Multivitamin) 1 Each Tablet 1 Each PO DAILY Isordil (Isosorbide Dinitrate) 40 Mg Tablet 40 Mg PO TID Combivent Respimat Inhal (Ipratropium/Albuterol Sulfate) 4 Gm Aer.w.adap 1 Inh IH BID Hydralazine Hcl 50 Mg Tablet 1 Tab PO TID wed, wed, sat. Atorvastatin Calcium 10 Mg Tablet 1 Tab PO DAILY Amlodipine Besylate 5 Mg Tablet 5 Mg PO DAILY wed, wed, wed, sat. hold if sbp is less than 110. call dr if sbp is > 170. Amiodarone Hcl 200 Mg Tablet 1 Tab PO DAILY Novolog Flexpen (Insulin Aspart) 100 Unit/1 Ml Insuln.pen 3 Unit SQ TIDAC Folic Acid 1 Mg Tablet 1 Mg PO DAILY Carvedilol 12.5 Mg Tablet 12.5 Mg PO BIDWMEALS wed, wed, sat. hold if sbp is 110. call dr if sbp is > 170. Levothyroxine Sodium 25 Mcg Tablet 75 Mcg PO DAILYAC Vitals/I & O Vital Sign - Last 24 Hours 08/07/16 08/07/16 08/07/16 08/07/16 14:36 15:45 16:31 16:59 Temp 94.9 94.9 94.9 94.9 Pulse 68 66 68 Resp 20 20 20 B/P 101/71 87/64 84/64 Pulse Ox 95 93 93 O2 Delivery Room Air 08/07/16 08/07/16 08/07/16 08/07/16 19:20 19:38 20:00 21:19 Temp 95.6 95.6 Pulse 72 Resp 12 20 B/P 100/77 100/77 Pulse Ox 95 96 O2 Delivery Room Air Room Air Room Air 08/07/16 08/07/16 08/07/16 08/07/16 21:20 21:40 22:38 23:40 Temp 97.3 97.3 Pulse 65 Resp 11 B/P 90/59 Pulse Ox 98 96 O2 Delivery Room Air Room Air Room Air Room Air 08/07/16 08/08/16 08/08/16 08/08/16 23:54 01:39 03:25 07:00 Temp 97.3 97.5 97.9 97.3 97.5 97.9 Pulse 73 72 Resp 13 17 B/P 91/77 79/63 Pulse Ox 97 94 O2 Delivery Room Air Room Air Room Air 08/08/16 08/08/16 07:31 11:00 Temp 97.3 97.3 Pulse 67 Resp 12 B/P 83/62 Pulse Ox 94 93 O2 Delivery Room Air Room Air Intake and Output 08/07/16 08/07/16 08/08/16 15:00 23:00 07:00 Output Total 1 ml Balance -1 ml ANISA SCHMITT MD Aug 08, 2016 12:36
[2016-08-08 15:00] VITALS: BP 93/67
[2016-08-08] MEDS: FOLIC ACID 1 MG TABLET PO SCH (18:32)
[2016-08-08] MEDS: LEVOTHYROXINE 75 MCG TABLET PO SCH (18:32)
[2016-08-08] MEDS: TAMSULOSIN 0.4 MG CAP.ER.24H. PO SCH (18:32)
[2016-08-08] MEDS: PHYTONADIONE (VIT K1) 5 MG TABLET PO SCH (18:33)
[2016-08-08 19:36] VITALS: BP 98/63
[2016-08-08] MEDS: ATORVASTATIN CALCIUM 10 MG TABLET. PO SCH (21:55)
[2016-08-08 23:03] VITALS: BP 95/63
[2016-08-09] VITALS (8 sets, daily range): BP systolic 77–104; BP diastolic 56–72
--- NOTE | 2016-08-09 03:22 | HP ---
ADMIT DATE: 08/07/2016 CHIEF COMPLAINT: Hypotension. HISTORY OF PRESENT ILLNESS: A 56-year-old male patient with several comorbid conditions, especially diastolic heart failure, cirrhosis, end-stage liver disease, presented to the ER with hypotension and not able to complete hemodialysis for 1 week. Most of the history obtained from the family members, sister and mother at bedside. As per the sister, he could not complete his hemodialysis for last 1 week due to low blood pressures, running around systolic 80s and diastolic 50s. Also, his abdomen is slowly distended and did not have any paracentesis recently. He denies any diarrhea or abdominal pain; however, the patient is hypothermic at the time of arrival and he was requiring Jacob Hugger to improve his temperatures. PAST MEDICAL HISTORY: Please see my electronic H and P. REVIEW OF SYSTEMS: Please see my electronic H and P. PHYSICAL EXAMINATION: Please see my electronic H and P. LABORATORY FINDINGS: Hemoglobin is 9.2, MCV is 86, MCHC is 31, platelets 39. Chemistry: Sodium is 147, potassium is 3.2, chloride is 114, carbon dioxide is 17, anion gap is 16, BUN is 16, creatinine is 7.7, GFR is 8.8, sugar is 145, alkaline phosphatase 226, albumin is 1.8. INR is 1.6. ASSESSMENT: 1. Hypotension. 2. Hypothermia. 3. Severe malnutrition. 4. End-stage renal disease. 5. End-stage liver disease. 6. Cardiomyopathy. 7. Diastolic heart failure, chronic. 8. Type 2 diabetes mellitus, insulin-dependent. 9. Anemia. 10. Thrombocytopenia. 11. Recent history of C. diff. 12. Hyperlipidemia. PLAN: 1. Has been admitted to step down unit and will consult Nephrology. 2. Jacob Hugger to improve temperature. goal> 97.8 3. Reviewed his old records, the patient's most of the blood pressures are running around systolic 90s. We will appreciate Nephrology's recommendations. 4. Interventional Radiology has been consulted for paracentesis. 5. Home medications reviewed and reconciled. 6. The sister is at the bedside who is a legal guardian, explained the complexity of the patient's condition. The patient's prognosis is guarded. 7. His imaging studies such as chest x-ray did not show any new findings. 8. If the patient continues to develop hypotension, we will get blood cultures. ANISA SCHMITT MD DR: EASTON/melissa JOB#: [id number] / [id number] TARYN
[2016-08-09] MEDS: INSULIN ASPART 300 UNITS/3 ML INSULN.PEN SQ SCH ×3 (07:30→16:30)
[2016-08-09] MEDS: IPRATRPIUM/ALBUTEROL 0.5/2.5MG 3 ML NEBU. NEB SCH ×2 (07:59→21:01)
[2016-08-09] MEDS: CARVEDILOL 12.5 MG TABLET PO SCH ×2 (08:00→17:00)
[2016-08-09] MEDS: SPIRONOLACTONE 25 MG TABLET PO SCH (09:00)
[2016-08-09] MEDS: AMLODIPINE BESYLATE 5 MG TABLET PO SCH (09:00)
[2016-08-09] MEDS: TAMSULOSIN 0.4 MG CAP.ER.24H. PO SCH (09:00)
[2016-08-09] MEDS: AMIODARONE HCL 200 MG TABLET PO SCH (09:00)
[2016-08-09] MEDS: FUROSEMIDE 40 MG TABLET PO SCH (09:00)
[2016-08-09] MEDS: DEXTROSE 50% 25 GM / 50ML DISP.SYRIN. IV PRN (11:18)
--- NOTE | 2016-08-09 11:41 | PDOC ---
PROGRESS NOTES Chief Complaint Chief Complaint a/p 1. Missed HD for 1 week, multiple electrolyte imbalance 2. Ascites, recurrent, hepatitis C, cirrhosis: need paracentesis 3. End-stage renal disease, on hemodialysis. 4. Severe thrombocytopenia secondary to cirrhosis. 5. Diabetes mellitus.: SSI 6. Diastolic heart failure, chronic, stable. 7. Hypertension, currently hypotensive, 8. Hypothermia. 9. Severe malnutrition. 10. History of substance abuse, cocaine, marijuana, and ethyl alcohol. 11. Anemia with chronic disease and cirrhosis. Plan HD per nephrology Bear hugger Paracentesis today blood cx Thrombocytopenia monitor electrolyte wound care PT/OT CBC/BMP nutritional support overall prognosis poor/guarded. d/w daughter at bedside. History of Present Illness History of Present Illness no fever no chills no chest pain Vitals Vitals Vital Signs Date Time Temp Pulse Resp B/P Pulse Ox O2 Delivery O2 Flow Rate FiO2 08/09/16 08:00 Room Air 08/09/16 02:00 96.7 68 18 104/69 92 96.7 Physical Exam General: Alert, Oriented X3 Heart: Normal S1, Normal S2 Lungs: Clear Abdomen: Normal bowel sounds, Soft, Other (dissteneded. ) Skin: No rashes Labs LABS Laboratory Tests Test 08/08/16 12:13 08/08/16 16:55 08/08/16 21:06 08/09/16 09:46 Glucose (Fingerstick) 84mg/dL (70-99) 98mg/dL (70-99) 121mg/dL (70-99) 57mg/dL (70-99) Test 08/09/16 11:02 Glucose (Fingerstick) 53mg/dL (70-99) Assessment and Plan Assessmemt and Plan Problems Medical Problems: (1) Ascites Status: Acute (2) End stage liver disease Status: Acute (3) Hypotension Status: Acute (4) Hypothermia Status: Acute Problems: Comment Review of Relevant I have reviewed the following items дмитрий (where applicable) has been applied. Labs Laboratory Tests Test 08/07/16 15:50 08/07/16 17:00 08/07/16 21:50 08/08/16 08:24 White Blood Count 3.7x10^3/uL (4.0-11.0) Red Blood Count 3.44x10^6/uL (4.30-5.70) Hemoglobin 9.2g/dL (13.0-17.5) Hematocrit 29.5% (39.0-53.0) Mean Corpuscular Volume 86fL (79-100) Mean Corpuscular Hemoglobin 27pg (25-35) Mean Corpuscular Hemoglobin Concent 31g/dL (31-37) Red Cell Distribution Width 18.8% (11.5-14.5) Platelet Count 39x10^3/uL (140-400) Neutrophils (%) (Auto) 72% (31-73) Lymphocytes (%) (Auto) 19% (24-48) Monocytes (%) (Auto) 7% (0-9) Eosinophils (%) (Auto) 1% (0-3) Basophils (%) (Auto) 1% (0-3) Neutrophils # (Auto) 2.7x10^3uL (1.8-7.7) Lymphocytes # (Auto) 0.7x10^3/uL (1.0-4.8) Monocytes # (Auto) 0.3x10^3/uL (0.0-1.1) Eosinophils # (Auto) 0.0x10^3/uL (0.0-0.7) Basophils # (Auto) 0.0x10^3/uL (0.0-0.2) Platelet Estimate Decreased (ADEQUATE) Prothrombin Time 18.5SEC (11.7-14.0) Prothromb Time International Ratio 1.6 (0.8-1.1) Activated Partial Thromboplast Time 47SEC (24-38) Sodium Level 147mmol/L (136-145) Potassium Level 3.2mmol/L (3.5-5.1) Chloride Level 114mmol/L (98-107) Carbon Dioxide Level 17mmol/L (21-32) Anion Gap 16 (6-14) Blood Urea Nitrogen 60mg/dL (8-26) Creatinine 7.7mg/dL (0.7-1.3) Estimated GFR (Cockcroft-Gault) 8.8 BUN/Creatinine Ratio 8 (6-20) Glucose Level 143mg/dL (70-99) Calcium Level 7.5mg/dL (8.5-10.1) Total Bilirubin 0.4mg/dL (0.2-1.0) Aspartate Amino Transf (AST/SGOT) 26U/L (15-37) Alanine Aminotransferase (ALT/SGPT) 25U/L (16-63) Alkaline Phosphatase 226U/L (46-116) Total Protein 5.8g/dL (6.4-8.2) Albumin 1.8g/dL (3.4-5.0) Albumin/Globulin Ratio 0.5 (1.0-1.7) Lactic Acid Level 1.3mmol/L (0.4-2.0) Glucose (Fingerstick) 167mg/dL (70-99) 71mg/dL (70-99) Test 08/08/16 12:13 08/08/16 16:55 08/08/16 21:06 08/09/16 09:46 Glucose (Fingerstick) 84mg/dL (70-99) 98mg/dL (70-99) 121mg/dL (70-99) 57mg/dL (70-99) Test 08/09/16 11:02 Glucose (Fingerstick) 53mg/dL (70-99) Laboratory Tests Test 08/08/16 12:13 08/08/16 16:55 08/08/16 21:06 08/09/16 09:46 Glucose (Fingerstick) 84mg/dL (70-99) 98mg/dL (70-99) 121mg/dL (70-99) 57mg/dL (70-99) Test 08/09/16 11:02 Glucose (Fingerstick) 53mg/dL (70-99) Microbiology 08/08/16 Blood Culture - Preliminary, Resulted NO GROWTH AFTER 1 DAY Medications Current Medications Morphine Sulfate 2 mg PRN Q2HR PRN IV PAIN Last administered on 08/07/16 22:38 ; Start 08/07/16 at 19:00 Acetaminophen (Tylenol) 650 mg PRN Q4HRS PRN PO MILD PAIN; Start 08/07/16 at 20 :00 Allopurinol (Zyloprim) 100 mg DAILY PO Last administered on 08/08/16 09:00; Start 08/08/16 at 09:00 Amiodarone HCl (Cordarone) 200 mg DAILY PO ; Start 08/08/16 at 09:00 Amlodipine Besylate (Norvasc) 5 mg DAILY PO ; Start 08/08/16 at 09:00 Atorvastatin Calcium (Lipitor) 10 mg QHS PO Last administered on 08/08/16 21: 55; Start 08/07/16 at 21:00 Calcium Acetate (Phoslo) 667 mg TIDWMEALS PO Last administered on 08/08/16 18: 38; Start 08/08/16 at 08:00 Carvedilol (Coreg) 12.5 mg BIDWMEALS PO Last administered on 08/07/16 21:19; Start 08/07/16 at 21:00 Darbepoetin Aaron (Aranesp) 60 mcg WEEKLY SQ ; Start 08/14/16 at 09:00 Folic Acid (Folic Acid) 1 mg DAILY PO Last administered on 08/08/16 18:32; Start 08/08/16 at 09:00 Furosemide (Lasix) 40 mg DAILY PO ; Start 08/08/16 at 09:00 Insulin Aspart (Novolog) 3 units TIDAC SQ ; Start 08/08/16 at 07:30 Levothyroxine Sodium (Synthroid) 75 mcg DAILYAC PO Last administered on 18:32; Start 08/08/16 at 07:30 Loperamide HCl (Imodium) 2 mg PRN Q6HRS PRN PO DIARRHEA; Start 08/07/16 at 20: 00 Oxycodone HCl (Oxycontin) 15 mg BID PO Last administered on 08/08/16 21:55; Start 08/07/16 at 21:00 Phytonadione (Mephyton) 10 mg DAILY PO Last administered on 08/08/16 18:33; Start 08/08/16 at 09:00 Sodium Bicarbonate (Sodium Bicarbonate) 650 mg BID PO Last administered on 08/08 21:54; Start 08/07/16 at 21:00 Tamsulosin HCl (Flomax) 0.4 mg DAILY PO Last administered on 08/08/16 18:32; Start 08/08/16 at 09:00 Calcium/Vitamin D (Oscal D 500mg/ 200uts) 1 tab BIDWMEALS PO Last administered on 08/08/16 18:38; Start 08/08/16 at 08:00 Non-Formulary Medication 1 mg PRN IM ; Start 08/07/16 at 20:00; Status UNV Non-Formulary Medication 1 inh BID IH ; Start 08/07/16 at 21:00; Status UNV Oxycodone HCl (Roxicodone) 15 mg PRN Q3HRS PRN PO PAIN Last administered on 23:54; Start 08/07/16 at 20:30 Spironolactone (Aldactone) 50 mg DAILY PO ; Start 08/08/16 at 09:00 Albuterol/ Ipratropium (Duoneb) 3 ml BID NEB Last administered on 08/09/16 07: 59; Start 08/07/16 at 21:00 Dextrose 12.5 gm PRN Q15MIN PRN IV SEE COMMENTS Last administered on 08/09/16 11:18; Start 08/09/16 at 10:15 Active Scripts Active Reported Keflex (Cephalexin) 500 Mg Capsule 1 Cap PO TID 7 Days Imodium A-D (Loperamide HCl) 2 Mg Capsule 2 Mg PO PRN Q6HRS PRN Acidophilus Lactobacillus (Lactobacillus Acidophilus) 1 Each Capsule 1 Each PO DAILY Furosemide 40 Mg Tablet 40 Mg PO DAILY Aranesp Syringe (Darbepoetin Aaron In Polysorbat) 60 Mcg/0.3 Ml Disp.syrin 60 Mcg SQ WEEKLY Mephyton (Phytonadione) 5 Mg Tablet 10 Mg PO DAILY Phoslo (Calcium Acetate) 667 Mg Capsule 2 Cap PO TIDWMEALS Allopurinol 100 Mg Tablet 1 Tab PO DAILY Spironolactone 50 Mg Tablet 50 Mg PO DAILY Oxycontin (Oxycodone HCl) 15 Mg Tab.er.12h 15 Mg PO BID Oxycodone Hcl 5 Mg Capsule 15 Mg PO Q3HRS PRN Oyster Shell Calcium-Vit D Tab (Calcium Carbonate/Vitamin D2) 1 Each Tablet 1 Each PO BID Acidophilus Lactobacillus (Lactobacillus Acidophilus) 1 Each Capsule 1 Each PO DAILY Glucose Gel (Dextrose) 38 Gm Gel..gram. 38 Gm PO PRN PRN Glucagon Emergency Kit (Glucagon,Human Recombinant) 1 Mg Kit 1 Mg IM PRN Acetaminophen 325 Mg Tablet 650 Mg PO PRN Q4HRS PRN Tamsulosin Hcl 0.4 Mg Cap.er.24h 1 Cap PO DAILY Sodium Bicarbonate 650 Mg Tablet 1 Tab PO BID Protonix (Pantoprazole Sodium) 40 Mg Tablet.dr 1 Tab PO BID Multi-Vitamin Daily (Multivitamin) 1 Each Tablet 1 Each PO DAILY Isordil (Isosorbide Dinitrate) 40 Mg Tablet 40 Mg PO TID Combivent Respimat Inhal (Ipratropium/Albuterol Sulfate) 4 Gm Aer.w.adap 1 Inh IH BID Hydralazine Hcl 50 Mg Tablet 1 Tab PO TID wed, wed, wed, sat. Atorvastatin Calcium 10 Mg Tablet 1 Tab PO DAILY Amlodipine Besylate 5 Mg Tablet 5 Mg PO DAILY wed, wed, wed, sat. hold if sbp is less than 110. call dr if sbp is > 170. Amiodarone Hcl 200 Mg Tablet 1 Tab PO DAILY Novolog Flexpen (Insulin Aspart) 100 Unit/1 Ml Insuln.pen 3 Unit SQ TIDAC Folic Acid 1 Mg Tablet 1 Mg PO DAILY Carvedilol 12.5 Mg Tablet 12.5 Mg PO BIDWMEALS wed, wed, wed, sat. hold if sbp is 110. call dr if sbp is > 170. Levothyroxine Sodium 25 Mcg Tablet 75 Mcg PO DAILYAC Vitals/I & O Vital Sign - Last 24 Hours 08/08/16 08/08/16 08/08/16 08/08/16 15:00 19:09 19:36 20:00 Temp 97.4 97.4 Pulse 64 65 Resp 16 20 B/P 93/67 98/63 Pulse Ox 92 99 93 O2 Delivery Room Air Room Air Room Air Room Air 08/08/16 08/08/16 08/09/16 08/09/16 21:55 23:03 01:55 02:00 Temp 96.4 96.7 96.4 96.7 Pulse 73 68 Resp 25 18 12 18 B/P 95/63 104/69 Pulse Ox 94 92 O2 Delivery Room Air Room Air Room Air Room Air 08/09/16 08:00 O2 Delivery Room Air Intake and Output 08/08/16 08/08/16 08/09/16 15:00 23:00 07:00 Intake Total 760 ml Balance 760 ml ANISA SCHMITT MD Aug 09, 2016 11:41
[2016-08-09] MEDS ORDERED: DEXTROSE 50% 25 GM / 50ML DISP.SYRIN. IV PRN (11:45)
[2016-08-09] MEDS: CALCIUM ACETATE 667 MG CAPSULE PO SCH ×3 (12:00→17:00)
[2016-08-09 12:51] LABS: BASO % 1 % (0-3); EOS % 1 % (0-3); HEMATOCRIT 28.2 % (39.0-53.0); HEMOGLOBIN 8.8 g/dL (13.0-17.5); LYMPH % 22 % (24-48); MEAN CORPUSCULAR HEMOGLOBIN 27 pg (25-35); MEAN CORPUSCULAR HGB CONC 31 g/dL (31-37); MEAN CORPUSCULAR VOLUME 88 fL (79-100); MONO % 6 % (0-9); NEUT % 70 % (31-73); PLATELET COUNT 38 x10^3/uL (140-400); RED BLOOD COUNT 3.22 x10^6/uL (4.30-5.70); RED CELL DISTRIBUTION WIDTH 18.9 % (11.5-14.5); WHITE BLOOD COUNT 4.3 x10^3/uL (4.0-11.0)
[2016-08-09 13:00] LABS: CALCIUM 7.4 mg/dL (8.5-10.1); CREATININE 8.6 mg/dL (0.7-1.3); GFR 7.8; POTASSIUM 3.4 mmol/L (3.5-5.1)
[2016-08-09 13:28] LABS: INR 1.6 (0.8-1.1)
[2016-08-09] MEDS: ALLOPURINOL 100 MG TABLET. PO SCH (15:32)
[2016-08-09] MEDS: FOLIC ACID 1 MG TABLET PO SCH (15:32)
[2016-08-09] MEDS: LEVOTHYROXINE 75 MCG TABLET PO SCH (15:32)
[2016-08-09] MEDS: OXYCODONE ER 15 MG TAB.ER.12H. PO SCH ×2 (15:33→21:00)
[2016-08-09] MEDS: PHYTONADIONE (VIT K1) 5 MG TABLET PO SCH (15:33)
[2016-08-09] MEDS: SODIUM BICARBONATE 650 MG TABLET. PO SCH ×2 (15:33→20:41)
[2016-08-09] MEDS: CALCIUM CARB/VIT D3 500/200 TABLET PO SCH ×2 (15:33→17:00)
--- NOTE | 2016-08-09 18:42 | CONS ---
DATE OF CONSULTATION: REQUESTING PHYSICIAN: Dr. Aldo Ivan. REASON FOR CONSULTATION: Renal failure. HISTORY OF PRESENT ILLNESS: This is an unfortunate 56-year-old gentleman with history of diabetes mellitus and end-stage renal disease, hemodialysis dependent on Wednesday, Wednesday and Wednesday. The patient has end-stage liver disease secondary to cirrhosis. He has had difficulty with dialysis due to hypotension. He is currently admitted for further evaluation and management. He has had significant issues with ascites. PAST MEDICAL HISTORY: 1. Diabetes mellitus, end-stage renal disease secondary to diabetic nephropathy. 2. Cirrhosis of the liver with recurrent ascites. 3. Persistent hypotension. 4. Anemia of chronic kidney disease. 5. Secondary hyperparathyroidism with renal disease. 6. Vascular access placement. 7. Gouty arthropathy. 8. Cardiomyopathy. 9. Alcohol use. 10. Drug use involving cocaine and marijuana. REVIEW OF SYSTEMS: No headaches, sinus problem, nasal drainage, epistaxis, change in vision or hearing, no difficulty swallowing. No fever, chills, cough, sputum production or hemoptysis. No chest pain or shortness of breath. No seizures or malignancies. PHYSICAL EXAMINATION: GENERAL: The patient awake, confused. HEENT: . NECK: No increased JVD. No thyromegaly, mass, or adenopathy. LUNGS: Clear. CARDIAC: Without S3 or rub. ABDOMEN: Distended with ascites. NEUROPSYCHIATRIC: Difficult to converse with. Somewhat withdrawn and confused. LABORATORY DATA: Potassium 3.2, CO2 of 17, creatinine 7.7, hemoglobin 9.2, hematocrit 29, white count 3.7. IMPRESSION: 1. End-stage renal disease secondary to diabetic nephropathy. 2. Cirrhosis with recurrent ascites. 3. Hypotension. 4. Poor functional status. RECOMMENDATIONS: 1. Ongoing dialysis on Wednesday, Wednesday and Wednesday. 2. Reassess medications with attempt to discontinue potential hypertensive agents. 3. Consider midodrine. 4. Consider palliative/hospice care. BANDAR CHOUDHURY MD DR: HERMAN/melissa JOB#: [id number] / [id number]
[2016-08-09] MEDS: ATORVASTATIN CALCIUM 10 MG TABLET. PO SCH (20:40)
[2016-08-09] MEDS: LOPERAMIDE 2 MG CAPSULE PO PRN (20:41)
[2016-08-10 02:00] VITALS: BP 105/81
[2016-08-10 04:33] VITALS: BP 99/77
[2016-08-10 07:20] VITALS: BP 94/72
[2016-08-10] MEDS: INSULIN ASPART 300 UNITS/3 ML INSULN.PEN SQ SCH ×3 (07:30→16:30)
[2016-08-10] MEDS: IPRATRPIUM/ALBUTEROL 0.5/2.5MG 3 ML NEBU. NEB SCH ×2 (08:15→17:03)
[2016-08-10 08:33] LABS: CALCIUM 7.1 mg/dL (8.5-10.1); CREATININE 8.8 mg/dL (0.7-1.3); GFR 7.5; POTASSIUM 3.3 mmol/L (3.5-5.1)
[2016-08-10 08:40] LABS: BASO % 1 % (0-3); EOS % 1 % (0-3); HEMATOCRIT 26.9 % (39.0-53.0); HEMOGLOBIN 8.6 g/dL (13.0-17.5); LYMPH % 24 % (24-48); MEAN CORPUSCULAR HEMOGLOBIN 27 pg (25-35); MEAN CORPUSCULAR HGB CONC 32 g/dL (31-37); MEAN CORPUSCULAR VOLUME 86 fL (79-100); MONO % 7 % (0-9); NEUT % 66 % (31-73); PLATELET COUNT 39 x10^3/uL (140-400); RED BLOOD COUNT 3.15 x10^6/uL (4.30-5.70); RED CELL DISTRIBUTION WIDTH 18.9 % (11.5-14.5); WHITE BLOOD COUNT 4.1 x10^3/uL (4.0-11.0)
[2016-08-10 08:48] LABS: INR 1.5 (0.8-1.1); PROTHROMBIN TIME PATIENT 17.3 SEC (11.7-14.0)
[2016-08-10] MEDS: LEVOTHYROXINE 75 MCG TABLET PO SCH (10:17)
[2016-08-10] MEDS: OXYCODONE ER 15 MG TAB.ER.12H. PO SCH ×2 (10:18→21:20)
[2016-08-10] MEDS: CALCIUM ACETATE 667 MG CAPSULE PO SCH ×3 (12:00→17:00)
[2016-08-10] MEDS ORDERED: ALBUMIN HUMAN 25% 200 ML IV PRN (12:00)
[2016-08-10] MEDS ORDERED: DIALYSIS PATIENT. MC PRN ×2 (12:00)
--- NOTE | 2016-08-10 12:10 | PDOC ---
Dialysis Progress Note Dialysis Note Dialysis Note Seen on Hemodialysis, tolerating treatment OK Vitals at the beginning of Hemodialysis: 76/61 (getting albumin currently) 80 afeb General Appearance: Awake: Alert Oriented x 2 Neck: No JVD or JVP Chest: CTA [place] Heart: S1 S2 Abdomen - Soft NTND Extremities - + Edema ESRD ARF: Dialysis as below F 180 NR 3.5 Hrs 4 K 2.5 Ca 140 Na 35 HC03 Qb 350 + Qd 500+ Heparin 0 Units Uf 0 Kgs or to dry weight as tolerated [ ] Transfuse [ ] Units PRCBC's on HD May give 25-50 gms of 25% Albumin if needed to maintain Hemodynamic stability Treatment plan reviewed and discussed with environmental management specialist [ ] Vitals Vital Signs Vital Signs Date Time Temp Pulse Resp B/P Pulse Ox O2 Delivery O2 Flow Rate FiO2 08/10/16 10:18 Room Air 08/10/16 08:16 96 08/10/16 07:20 97.5 82 14 94/72 97.5 Labs Last Labs Laboratory Tests Test 08/08/16 12:13 08/08/16 16:55 08/08/16 21:06 08/09/16 09:46 Glucose (Fingerstick) 84mg/dL (70-99) 98mg/dL (70-99) 121mg/dL (70-99) 57mg/dL (70-99) Test 08/09/16 11:02 08/09/16 12:13 08/09/16 12:30 08/09/16 17:23 Glucose (Fingerstick) 53mg/dL (70-99) 72mg/dL (70-99) 153mg/dL (70-99) White Blood Count 4.3x10^3/uL (4.0-11.0) Red Blood Count 3.22x10^6/uL (4.30-5.70) Hemoglobin 8.8g/dL (13.0-17.5) Hematocrit 28.2% (39.0-53.0) Mean Corpuscular Volume 88fL (79-100) Mean Corpuscular Hemoglobin 27pg (25-35) Mean Corpuscular Hemoglobin Concent 31g/dL (31-37) Red Cell Distribution Width 18.9% (11.5-14.5) Platelet Count 38x10^3/uL (140-400) Neutrophils (%) (Auto) 70% (31-73) Lymphocytes (%) (Auto) 22% (24-48) Monocytes (%) (Auto) 6% (0-9) Eosinophils (%) (Auto) 1% (0-3) Basophils (%) (Auto) 1% (0-3) Neutrophils # (Auto) 3.0x10^3uL (1.8-7.7) Lymphocytes # (Auto) 1.0x10^3/uL (1.0-4.8) Monocytes # (Auto) 0.2x10^3/uL (0.0-1.1) Eosinophils # (Auto) 0.1x10^3/uL (0.0-0.7) Basophils # (Auto) 0.0x10^3/uL (0.0-0.2) Prothrombin Time 18.0SEC (11.7-14.0) Prothromb Time International Ratio 1.6 (0.8-1.1) Sodium Level 148mmol/L (136-145) Potassium Level 3.4mmol/L (3.5-5.1) Chloride Level 115mmol/L (98-107) Carbon Dioxide Level 19mmol/L (21-32) Anion Gap 14 (6-14) Blood Urea Nitrogen 72mg/dL (8-26) Creatinine 8.6mg/dL (0.7-1.3) Estimated GFR (Cockcroft-Gault) 7.8 Glucose Level 84mg/dL (70-99) Calcium Level 7.4mg/dL (8.5-10.1) Test 08/10/16 07:29 08/10/16 08:05 Glucose (Fingerstick) 93mg/dL (70-99) White Blood Count 4.1x10^3/uL (4.0-11.0) Red Blood Count 3.15x10^6/uL (4.30-5.70) Hemoglobin 8.6g/dL (13.0-17.5) Hematocrit 26.9% (39.0-53.0) Mean Corpuscular Volume 86fL (79-100) Mean Corpuscular Hemoglobin 27pg (25-35) Mean Corpuscular Hemoglobin Concent 32g/dL (31-37) Red Cell Distribution Width 18.9% (11.5-14.5) Platelet Count 39x10^3/uL (140-400) Neutrophils (%) (Auto) 66% (31-73) Lymphocytes (%) (Auto) 24% (24-48) Monocytes (%) (Auto) 7% (0-9) Eosinophils (%) (Auto) 1% (0-3) Basophils (%) (Auto) 1% (0-3) Neutrophils # (Auto) 2.7x10^3uL (1.8-7.7) Lymphocytes # (Auto) 1.0x10^3/uL (1.0-4.8) Monocytes # (Auto) 0.3x10^3/uL (0.0-1.1) Eosinophils # (Auto) 0.0x10^3/uL (0.0-0.7) Basophils # (Auto) 0.0x10^3/uL (0.0-0.2) Prothrombin Time 17.3SEC (11.7-14.0) Prothromb Time International Ratio 1.5 (0.8-1.1) Sodium Level 150mmol/L (136-145) Potassium Level 3.3mmol/L (3.5-5.1) Chloride Level 114mmol/L (98-107) Carbon Dioxide Level 18mmol/L (21-32) Anion Gap 18 (6-14) Blood Urea Nitrogen 75mg/dL (8-26) Creatinine 8.8mg/dL (0.7-1.3) Estimated GFR (Cockcroft-Gault) 7.5 Glucose Level 94mg/dL (70-99) Calcium Level 7.1mg/dL (8.5-10.1) Laboratory Tests Test 08/09/16 12:13 08/09/16 12:30 08/09/16 17:23 08/10/16 07:29 Glucose (Fingerstick) 72mg/dL (70-99) 153mg/dL (70-99) 93mg/dL (70-99) White Blood Count 4.3x10^3/uL (4.0-11.0) Red Blood Count 3.22x10^6/uL (4.30-5.70) Hemoglobin 8.8g/dL (13.0-17.5) Hematocrit 28.2% (39.0-53.0) Mean Corpuscular Volume 88fL (79-100) Mean Corpuscular Hemoglobin 27pg (25-35) Mean Corpuscular Hemoglobin Concent 31g/dL (31-37) Red Cell Distribution Width 18.9% (11.5-14.5) Platelet Count 38x10^3/uL (140-400) Neutrophils (%) (Auto) 70% (31-73) Lymphocytes (%) (Auto) 22% (24-48) Monocytes (%) (Auto) 6% (0-9) Eosinophils (%) (Auto) 1% (0-3) Basophils (%) (Auto) 1% (0-3) Neutrophils # (Auto) 3.0x10^3uL (1.8-7.7) Lymphocytes # (Auto) 1.0x10^3/uL (1.0-4.8) Monocytes # (Auto) 0.2x10^3/uL (0.0-1.1) Eosinophils # (Auto) 0.1x10^3/uL (0.0-0.7) Basophils # (Auto) 0.0x10^3/uL (0.0-0.2) Prothrombin Time 18.0SEC (11.7-14.0) Prothromb Time International Ratio 1.6 (0.8-1.1) Sodium Level 148mmol/L (136-145) Potassium Level 3.4mmol/L (3.5-5.1) Chloride Level 115mmol/L (98-107) Carbon Dioxide Level 19mmol/L (21-32) Anion Gap 14 (6-14) Blood Urea Nitrogen 72mg/dL (8-26) Creatinine 8.6mg/dL (0.7-1.3) Estimated GFR (Cockcroft-Gault) 7.8 Glucose Level 84mg/dL (70-99) Calcium Level 7.4mg/dL (8.5-10.1) Test 08/10/16 08:05 White Blood Count 4.1x10^3/uL (4.0-11.0) Red Blood Count 3.15x10^6/uL (4.30-5.70) Hemoglobin 8.6g/dL (13.0-17.5) Hematocrit 26.9% (39.0-53.0) Mean Corpuscular Volume 86fL (79-100) Mean Corpuscular Hemoglobin 27pg (25-35) Mean Corpuscular Hemoglobin Concent 32g/dL (31-37) Red Cell Distribution Width 18.9% (11.5-14.5) Platelet Count 39x10^3/uL (140-400) Neutrophils (%) (Auto) 66% (31-73) Lymphocytes (%) (Auto) 24% (24-48) Monocytes (%) (Auto) 7% (0-9) Eosinophils (%) (Auto) 1% (0-3) Basophils (%) (Auto) 1% (0-3) Neutrophils # (Auto) 2.7x10^3uL (1.8-7.7) Lymphocytes # (Auto) 1.0x10^3/uL (1.0-4.8) Monocytes # (Auto) 0.3x10^3/uL (0.0-1.1) Eosinophils # (Auto) 0.0x10^3/uL (0.0-0.7) Basophils # (Auto) 0.0x10^3/uL (0.0-0.2) Prothrombin Time 17.3SEC (11.7-14.0) Prothromb Time International Ratio 1.5 (0.8-1.1) Sodium Level 150mmol/L (136-145) Potassium Level 3.3mmol/L (3.5-5.1) Chloride Level 114mmol/L (98-107) Carbon Dioxide Level 18mmol/L (21-32) Anion Gap 18 (6-14) Blood Urea Nitrogen 75mg/dL (8-26) Creatinine 8.8mg/dL (0.7-1.3) Estimated GFR (Cockcroft-Gault) 7.5 Glucose Level 94mg/dL (70-99) Calcium Level 7.1mg/dL (8.5-10.1) Assessment Assessment Problems Medical Problems: (1) Ascites Status: Acute (2) End stage liver disease Status: Acute (3) Hypotension Status: Acute (4) Hypothermia Status: Acute Problems: Plan Plan of Care Problems Medical Problems: (1) Ascites Status: Acute (2) End stage liver disease Status: Acute (3) Hypotension Status: Acute (4) Hypothermia Status: Acute CELINA CLIFTON MD Aug 10, 2016 12:10
[2016-08-10] MEDS ORDERED: MIDODRINE 2.5 MG TABLET PO STA (12:59)
[2016-08-10] MEDS ORDERED: MIDODRINE 5 MG TABLET PO SCH (13:00)
--- NOTE | 2016-08-10 13:22 | PDOC2 ---
CARDIAC CONSULT DATE OF CONSULT Date of Consult DATE: 08/10/16 TIME: 13:16 REASON FOR CONSULT Reason for Consult: low blood pressure REFERRING PHYSICIAN Referring Physician: Dr. Rees SOURCE Source: Chart review, Patient HISTORY OF PRESENT ILLNESS HISTORY OF PRESENT ILLNESS This is a 56 yo male, with a history of end stage liver disease with cirrhosis and recurrent ascites, CHF, renal disease on HD, and persistent hypotension, who presented from dialysis secondary to hypotension. Routine HD has been difficult due to hypotension. In ED, temperature noted to be 94.9; Jacob hugger initiated. Patient resides in NH; uses wheelchair for mobility. Denies any SOA, dizziness, syncope, diaphoresis, orthopnea, LE edema, or chest pain. Does reports ascites; has been recurrent. PAST MEDICAL HISTORY Cardiovascular: CHF, Hyperlipidemia, Other (hypotension) Pulmonary: COPD GI: No pertinent hx Heme/Onc: Anemia NOS Hepatobiliary: Cirrhosis, Hep A/B/C (C) Psych: No pertinent hx Musculoskeletal: Osteoarthritis, Other (DDD) Rheumatologic: Gout Infectious disease: No pertinent hx ENT: No pertinent hx Renal/: Chronic renal failure (on HD) Endocrine: No pertinent hx, Hypothyroidism PAST SURGICAL HISTORY Past Surgical History: Other (paracentesis, multiple ) FAMILY HISTORY Family History: Hypertension SOCIAL HISTORY Smoke: Quit Drugs: None (quit ) Lives: Detention CURRENT MEDICATIONS CURRENT MEDICATIONS Current Medications Medications (Trade) Dose Ordered Sig/Madi Route PRN Reason Start Time Stop Time Status Last Admin Dose Admin Albumin Human (Albuminar) 200 ml @ 200 mls/hr 1X PRN PRN IV Hypotension 08/10/16 12:00 08/10/16 17:59 08/10/16 12:13 ALLERGIES ALLERGIES: Coded Allergies: I S O L A T I O N *CONTACT* (Verified Allergy, Unknown, C-DIFF ISOLATION, 06/23/16) No Known Medication Allergies (Verified Allergy, Unknown, 06/24/16) ROS Review of System 14 point ROS conducted with pertinent positives noted above in HPI PHYSICAL EXAM General: Alert, Oriented X3, Cooperative, No acute distress HEENT: Atraumatic Lungs: Other (diminished bases ) Heart: Regular rate, Normal S1, Normal S2 Abdomen: Other (mild diffuse tenderness. firm, distended; ascites present ) Extremities: No edema, Other (diminished DP pulses ) Skin: No significant lesion Neuro: Normal speech, Sensation intact Psych/Mental Status: Mental status NL, Other (flat affect ) MUSCULOSKELETAL: Osteoarthritic changes both hands VITALS VITALS Vital Signs Date Time Temp Pulse Resp B/P Pulse Ox O2 Delivery O2 Flow Rate FiO2 08/10/16 10:18 Room Air 08/10/16 08:16 96 08/10/16 07:20 97.5 82 14 94/72 97.5 LABS Lab: Laboratory Tests Test 08/09/16 17:23 08/10/16 07:29 08/10/16 08:05 08/10/16 12:39 Glucose (Fingerstick) 153mg/dL (70-99) 93mg/dL (70-99) 85mg/dL (70-99) White Blood Count 4.1x10^3/uL (4.0-11.0) Red Blood Count 3.15x10^6/uL (4.30-5.70) Hemoglobin 8.6g/dL (13.0-17.5) Hematocrit 26.9% (39.0-53.0) Mean Corpuscular Volume 86fL (79-100) Mean Corpuscular Hemoglobin 27pg (25-35) Mean Corpuscular Hemoglobin Concent 32g/dL (31-37) Red Cell Distribution Width 18.9% (11.5-14.5) Platelet Count 39x10^3/uL (140-400) Neutrophils (%) (Auto) 66% (31-73) Lymphocytes (%) (Auto) 24% (24-48) Monocytes (%) (Auto) 7% (0-9) Eosinophils (%) (Auto) 1% (0-3) Basophils (%) (Auto) 1% (0-3) Neutrophils # (Auto) 2.7x10^3uL (1.8-7.7) Lymphocytes # (Auto) 1.0x10^3/uL (1.0-4.8) Monocytes # (Auto) 0.3x10^3/uL (0.0-1.1) Eosinophils # (Auto) 0.0x10^3/uL (0.0-0.7) Basophils # (Auto) 0.0x10^3/uL (0.0-0.2) Prothrombin Time 17.3SEC (11.7-14.0) Prothromb Time International Ratio 1.5 (0.8-1.1) Sodium Level 150mmol/L (136-145) Potassium Level 3.3mmol/L (3.5-5.1) Chloride Level 114mmol/L (98-107) Carbon Dioxide Level 18mmol/L (21-32) Anion Gap 18 (6-14) Blood Urea Nitrogen 75mg/dL (8-26) Creatinine 8.8mg/dL (0.7-1.3) Estimated GFR (Cockcroft-Gault) 7.5 Glucose Level 94mg/dL (70-99) Calcium Level 7.1mg/dL (8.5-10.1) ECHOCARDIOGRAM ECHOCARDIOGRAM <Conclusion> The left ventricle is normal size. The left ventricular systolic function is normal and the ejection fraction is within normal range. The Ejection Fraction is 60-65%. There is moderate concentric left ventricular hypertrophy. There is no significant aortic valvular stenosis. Doppler and Color Flow revealed no significant aortic regurgitation. Doppler and Color-flow revealed trace mitral regurgitation. Doppler and Color Flow revealed no tricuspid valve regurgitation noted. There is a trace circumferential pericardial effusion with no hemodynamic significance. DATE: 05/08/16 1037 ASSESSMENT/PLAN ASSESSMENT/PLAN 1. Hypotension asymptomatic secondary to intervascular depletion check orthos recommend compression stockings. No abdominal binder due to significant ascites change positions slowly discontinue norvasc and coreg. hold diuretics for now will likely not benefit from Midodrine; also contraindicated with end-stage hepatic disease 2. end-stage liver disease with cirrhosis significant ascites present 3. chronic diastolic heart failure recent echo with preserved LV function appears clinically compensated. fluid management per HD 4. hypothermia Jacob hugger in place 5. ESRD on HD per nephrology Problems: MIKE WILLIS APRN Aug 10, 2016 13:22
--- NOTE | 2016-08-10 13:33 | PDOC2 ---
PALLIATIVE CARE Palliative Care Note Palliative Care Consult requested by Dr. Soriano to address goals of care Diagnosis: ESLD--Ascities--plan paracentesis ESRD--dialysis; Malnutrition; Alb 1.8] Cardiomyopathy DM2 Heart Failure--diastolic Thrombocytopenia Recent C-diff History of Substance Abuse. Attempted to reach sister--Blanca Ardon-- Spoke with Tiarra at [facility]. [facility] conducted family meeting 2 days before admission. Family wished to continue aggressive care--no palliative or hospice care Spoke with Maddy daughter. Will speak with her Aunt Blanca and have her call hospital to arrange meeting. Brook Hopkins ---C ([phone]); H ([phone]) Code Status: Full Code. Will continue to try to reach family to discuss goals of care. NESTOR ALANIZ Aug 10, 2016 13:33
--- NOTE | 2016-08-10 13:44 | PDOC ---
PROGRESS NOTES Chief Complaint Chief Complaint a/p 1. Missed HD for 1 week 2/2 to low bp, multiple electrolyte imbalance 2. Ascites, recurrent, hepatitis C, cirrhosis: need paracentesis 3. End-stage renal disease, on hemodialysis. 4. Severe thrombocytopenia secondary to cirrhosis. 5. Diabetes mellitus.: SSI 6. Diastolic heart failure, chronic, stable. 7. Hypertension, currently hypotensive, 8. Hypothermia. 9. Severe malnutrition. 10. History of substance abuse, cocaine, marijuana, and ethyl alcohol. 11. Anemia with chronic disease and cirrhosis. 12. low BP Plan HD per nephrology Néstor edwardsgger Paracentesis today blood cx, dc htn meds, cont only amiadorne Thrombocytopenia , 2u PLT transfulsion monitor electrolyte wound care PT/OT CBC/BMP nutritional support overall prognosis poor/guarded. paracentesis and albumin 25% post procedure Hospice consult again, cannot reach family in the past c diff sent History of Present Illness History of Present Illness no fever no chills no chest pain looks very weak, with distended Abd cannot answer my questions well chronically taking pain meds for body pain Vitals Vitals Vital Signs Date Time Temp Pulse Resp B/P Pulse Ox O2 Delivery O2 Flow Rate FiO2 08/10/16 10:18 Room Air 08/10/16 08:16 96 08/10/16 07:20 97.5 82 14 94/72 97.5 Physical Exam General: Alert, Oriented X3 Heart: Normal S1, Normal S2 Lungs: Clear Abdomen: Normal bowel sounds, Soft, Other (dissteneded. ) Skin: No rashes Labs LABS Laboratory Tests Test 08/09/16 17:23 08/10/16 07:29 08/10/16 08:05 08/10/16 12:39 Glucose (Fingerstick) 153mg/dL (70-99) 93mg/dL (70-99) 85mg/dL (70-99) White Blood Count 4.1x10^3/uL (4.0-11.0) Red Blood Count 3.15x10^6/uL (4.30-5.70) Hemoglobin 8.6g/dL (13.0-17.5) Hematocrit 26.9% (39.0-53.0) Mean Corpuscular Volume 86fL (79-100) Mean Corpuscular Hemoglobin 27pg (25-35) Mean Corpuscular Hemoglobin Concent 32g/dL (31-37) Red Cell Distribution Width 18.9% (11.5-14.5) Platelet Count 39x10^3/uL (140-400) Neutrophils (%) (Auto) 66% (31-73) Lymphocytes (%) (Auto) 24% (24-48) Monocytes (%) (Auto) 7% (0-9) Eosinophils (%) (Auto) 1% (0-3) Basophils (%) (Auto) 1% (0-3) Neutrophils # (Auto) 2.7x10^3uL (1.8-7.7) Lymphocytes # (Auto) 1.0x10^3/uL (1.0-4.8) Monocytes # (Auto) 0.3x10^3/uL (0.0-1.1) Eosinophils # (Auto) 0.0x10^3/uL (0.0-0.7) Basophils # (Auto) 0.0x10^3/uL (0.0-0.2) Prothrombin Time 17.3SEC (11.7-14.0) Prothromb Time International Ratio 1.5 (0.8-1.1) Sodium Level 150mmol/L (136-145) Potassium Level 3.3mmol/L (3.5-5.1) Chloride Level 114mmol/L (98-107) Carbon Dioxide Level 18mmol/L (21-32) Anion Gap 18 (6-14) Blood Urea Nitrogen 75mg/dL (8-26) Creatinine 8.8mg/dL (0.7-1.3) Estimated GFR (Cockcroft-Gault) 7.5 Glucose Level 94mg/dL (70-99) Calcium Level 7.1mg/dL (8.5-10.1) Review of Systems Review of Systems no fever, chills, sob or chest pain Assessment and Plan Assessmemt and Plan Problems Medical Problems: (1) Ascites Status: Acute (2) End stage liver disease Status: Acute (3) Hypotension Status: Acute (4) Hypothermia Status: Acute Problems: Comment Review of Relevant I have reviewed the following items дмитрий (where applicable) has been applied. Labs Laboratory Tests Test 08/08/16 16:55 08/08/16 21:06 08/09/16 09:46 08/09/16 11:02 Glucose (Fingerstick) 98mg/dL (70-99) 121mg/dL (70-99) 57mg/dL (70-99) 53mg/dL (70-99) Test 08/09/16 12:13 08/09/16 12:30 08/09/16 17:23 08/10/16 07:29 Glucose (Fingerstick) 72mg/dL (70-99) 153mg/dL (70-99) 93mg/dL (70-99) White Blood Count 4.3x10^3/uL (4.0-11.0) Red Blood Count 3.22x10^6/uL (4.30-5.70) Hemoglobin 8.8g/dL (13.0-17.5) Hematocrit 28.2% (39.0-53.0) Mean Corpuscular Volume 88fL (79-100) Mean Corpuscular Hemoglobin 27pg (25-35) Mean Corpuscular Hemoglobin Concent 31g/dL (31-37) Red Cell Distribution Width 18.9% (11.5-14.5) Platelet Count 38x10^3/uL (140-400) Neutrophils (%) (Auto) 70% (31-73) Lymphocytes (%) (Auto) 22% (24-48) Monocytes (%) (Auto) 6% (0-9) Eosinophils (%) (Auto) 1% (0-3) Basophils (%) (Auto) 1% (0-3) Neutrophils # (Auto) 3.0x10^3uL (1.8-7.7) Lymphocytes # (Auto) 1.0x10^3/uL (1.0-4.8) Monocytes # (Auto) 0.2x10^3/uL (0.0-1.1) Eosinophils # (Auto) 0.1x10^3/uL (0.0-0.7) Basophils # (Auto) 0.0x10^3/uL (0.0-0.2) Prothrombin Time 18.0SEC (11.7-14.0) Prothromb Time International Ratio 1.6 (0.8-1.1) Sodium Level 148mmol/L (136-145) Potassium Level 3.4mmol/L (3.5-5.1) Chloride Level 115mmol/L (98-107) Carbon Dioxide Level 19mmol/L (21-32) Anion Gap 14 (6-14) Blood Urea Nitrogen 72mg/dL (8-26) Creatinine 8.6mg/dL (0.7-1.3) Estimated GFR (Cockcroft-Gault) 7.8 Glucose Level 84mg/dL (70-99) Calcium Level 7.4mg/dL (8.5-10.1) Test 08/10/16 08:05 08/10/16 12:39 White Blood Count 4.1x10^3/uL (4.0-11.0) Red Blood Count 3.15x10^6/uL (4.30-5.70) Hemoglobin 8.6g/dL (13.0-17.5) Hematocrit 26.9% (39.0-53.0) Mean Corpuscular Volume 86fL (79-100) Mean Corpuscular Hemoglobin 27pg (25-35) Mean Corpuscular Hemoglobin Concent 32g/dL (31-37) Red Cell Distribution Width 18.9% (11.5-14.5) Platelet Count 39x10^3/uL (140-400) Neutrophils (%) (Auto) 66% (31-73) Lymphocytes (%) (Auto) 24% (24-48) Monocytes (%) (Auto) 7% (0-9) Eosinophils (%) (Auto) 1% (0-3) Basophils (%) (Auto) 1% (0-3) Neutrophils # (Auto) 2.7x10^3uL (1.8-7.7) Lymphocytes # (Auto) 1.0x10^3/uL (1.0-4.8) Monocytes # (Auto) 0.3x10^3/uL (0.0-1.1) Eosinophils # (Auto) 0.0x10^3/uL (0.0-0.7) Basophils # (Auto) 0.0x10^3/uL (0.0-0.2) Prothrombin Time 17.3SEC (11.7-14.0) Prothromb Time International Ratio 1.5 (0.8-1.1) Sodium Level 150mmol/L (136-145) Potassium Level 3.3mmol/L (3.5-5.1) Chloride Level 114mmol/L (98-107) Carbon Dioxide Level 18mmol/L (21-32) Anion Gap 18 (6-14) Blood Urea Nitrogen 75mg/dL (8-26) Creatinine 8.8mg/dL (0.7-1.3) Estimated GFR (Cockcroft-Gault) 7.5 Glucose Level 94mg/dL (70-99) Calcium Level 7.1mg/dL (8.5-10.1) Glucose (Fingerstick) 85mg/dL (70-99) Laboratory Tests Test 08/09/16 17:23 08/10/16 07:29 08/10/16 08:05 08/10/16 12:39 Glucose (Fingerstick) 153mg/dL (70-99) 93mg/dL (70-99) 85mg/dL (70-99) White Blood Count 4.1x10^3/uL (4.0-11.0) Red Blood Count 3.15x10^6/uL (4.30-5.70) Hemoglobin 8.6g/dL (13.0-17.5) Hematocrit 26.9% (39.0-53.0) Mean Corpuscular Volume 86fL (79-100) Mean Corpuscular Hemoglobin 27pg (25-35) Mean Corpuscular Hemoglobin Concent 32g/dL (31-37) Red Cell Distribution Width 18.9% (11.5-14.5) Platelet Count 39x10^3/uL (140-400) Neutrophils (%) (Auto) 66% (31-73) Lymphocytes (%) (Auto) 24% (24-48) Monocytes (%) (Auto) 7% (0-9) Eosinophils (%) (Auto) 1% (0-3) Basophils (%) (Auto) 1% (0-3) Neutrophils # (Auto) 2.7x10^3uL (1.8-7.7) Lymphocytes # (Auto) 1.0x10^3/uL (1.0-4.8) Monocytes # (Auto) 0.3x10^3/uL (0.0-1.1) Eosinophils # (Auto) 0.0x10^3/uL (0.0-0.7) Basophils # (Auto) 0.0x10^3/uL (0.0-0.2) Prothrombin Time 17.3SEC (11.7-14.0) Prothromb Time International Ratio 1.5 (0.8-1.1) Sodium Level 150mmol/L (136-145) Potassium Level 3.3mmol/L (3.5-5.1) Chloride Level 114mmol/L (98-107) Carbon Dioxide Level 18mmol/L (21-32) Anion Gap 18 (6-14) Blood Urea Nitrogen 75mg/dL (8-26) Creatinine 8.8mg/dL (0.7-1.3) Estimated GFR (Cockcroft-Gault) 7.5 Glucose Level 94mg/dL (70-99) Calcium Level 7.1mg/dL (8.5-10.1) Microbiology 08/08/16 Blood Culture - Preliminary, Resulted NO GROWTH AFTER 2 DAYS Medications Current Medications Morphine Sulfate 2 mg PRN Q2HR PRN IV PAIN Last administered on 08/07/16 22:38 ; Start 08/07/16 at 19:00 Acetaminophen (Tylenol) 650 mg PRN Q4HRS PRN PO MILD PAIN; Start 08/07/16 at 20 :00 Allopurinol (Zyloprim) 100 mg DAILY PO Last administered on 08/09/16 15:32; Start 08/08/16 at 09:00 Amiodarone HCl (Cordarone) 200 mg DAILY PO ; Start 08/08/16 at 09:00 Amlodipine Besylate (Norvasc) 5 mg DAILY PO ; Start 08/08/16 at 09:00 Atorvastatin Calcium (Lipitor) 10 mg QHS PO Last administered on 08/09/16 20: 40; Start 08/07/16 at 21:00 Calcium Acetate (Phoslo) 667 mg TIDWMEALS PO Last administered on 08/09/16 15: 32; Start 08/08/16 at 08:00 Carvedilol (Coreg) 12.5 mg BIDWMEALS PO Last administered on 08/07/16 21:19; Start 08/07/16 at 21:00 Darbepoetin Aaron (Aranesp) 60 mcg WEEKLY SQ ; Start 08/14/16 at 09:00 Folic Acid (Folic Acid) 1 mg DAILY PO Last administered on 08/09/16 15:32; Start 08/08/16 at 09:00 Furosemide (Lasix) 40 mg DAILY PO ; Start 08/08/16 at 09:00 Insulin Aspart (Novolog) 3 units TIDAC SQ ; Start 08/08/16 at 07:30 Levothyroxine Sodium (Synthroid) 75 mcg DAILYAC PO Last administered on 10:17; Start 08/08/16 at 07:30 Loperamide HCl (Imodium) 2 mg PRN Q6HRS PRN PO DIARRHEA Last administered on 20:41; Start 08/07/16 at 20:00 Oxycodone HCl (Oxycontin) 15 mg BID PO Last administered on 08/10/16 10:18; Start 08/07/16 at 21:00 Phytonadione (Mephyton) 10 mg DAILY PO Last administered on 08/09/16 15:33; Start 08/08/16 at 09:00 Sodium Bicarbonate (Sodium Bicarbonate) 650 mg BID PO Last administered on 08/09 20:41; Start 08/07/16 at 21:00 Tamsulosin HCl (Flomax) 0.4 mg DAILY PO Last administered on 08/08/16 18:32; Start 08/08/16 at 09:00 Calcium/Vitamin D (Oscal D 500mg/ 200uts) 1 tab BIDWMEALS PO Last administered on 08/09/16 15:33; Start 08/08/16 at 08:00 Non-Formulary Medication 1 mg PRN IM ; Start 08/07/16 at 20:00; Status UNV Non-Formulary Medication 1 inh BID IH ; Start 08/07/16 at 21:00; Status UNV Oxycodone HCl (Roxicodone) 15 mg PRN Q3HRS PRN PO PAIN Last administered on 23:54; Start 08/07/16 at 20:30 Spironolactone (Aldactone) 50 mg DAILY PO ; Start 08/08/16 at 09:00 Albuterol/ Ipratropium (Duoneb) 3 ml BID NEB Last administered on 08/10/16 08: 15; Start 08/07/16 at 21:00 Dextrose 12.5 gm PRN Q15MIN PRN IV SEE COMMENTS Last administered on 08/09/16 11:18; Start 08/09/16 at 10:15 Dextrose 25 gm 25 gm PRN 1X PRN IV hypoglyceia; Start 08/09/16 at 11:45; Stop 08/09/16 at 12:29; Status DC Albumin Human (Albuminar) 200 ml @ 200 mls/hr 1X PRN PRN IV Hypotension Last administered on 08/10/16 12:13; Start 08/10/16 at 12:00; Stop 08/10/16 at 17:59 Info (PHARMACY MONITORING -- do not chart) 1 each PRN DAILY PRN MC SEE COMMENTS ; Start 08/10/16 at 12:00 Info (PHARMACY MONITORING -- do not chart) 1 each PRN DAILY PRN MC SEE COMMENTS ; Start 08/10/16 at 12:00; Status UNV Midodrine (Proamatine) 5 mg [id number] PO ; Start 08/10/16 at 13:00; Status UNV Midodrine (Proamatine) 2.5 mg 1X STAT PO ; Start 08/10/16 at 12:59; Stop at 13:06; Status DC Active Scripts Active Reported Keflex (Cephalexin) 500 Mg Capsule 1 Cap PO TID 7 Days Imodium A-D (Loperamide HCl) 2 Mg Capsule 2 Mg PO PRN Q6HRS PRN Acidophilus Lactobacillus (Lactobacillus Acidophilus) 1 Each Capsule 1 Each PO DAILY Furosemide 40 Mg Tablet 40 Mg PO DAILY Aranesp Syringe (Darbepoetin Aaron In Polysorbat) 60 Mcg/0.3 Ml Disp.syrin 60 Mcg SQ WEEKLY Mephyton (Phytonadione) 5 Mg Tablet 10 Mg PO DAILY Phoslo (Calcium Acetate) 667 Mg Capsule 2 Cap PO TIDWMEALS Allopurinol 100 Mg Tablet 1 Tab PO DAILY Spironolactone 50 Mg Tablet 50 Mg PO DAILY Oxycontin (Oxycodone HCl) 15 Mg Tab.er.12h 15 Mg PO BID Oxycodone Hcl 5 Mg Capsule 15 Mg PO Q3HRS PRN Oyster Shell Calcium-Vit D Tab (Calcium Carbonate/Vitamin D2) 1 Each Tablet 1 Each PO BID Acidophilus Lactobacillus (Lactobacillus Acidophilus) 1 Each Capsule 1 Each PO DAILY Glucose Gel (Dextrose) 38 Gm Gel..gram. 38 Gm PO PRN PRN Glucagon Emergency Kit (Glucagon,Human Recombinant) 1 Mg Kit 1 Mg IM PRN Acetaminophen 325 Mg Tablet 650 Mg PO PRN Q4HRS PRN Tamsulosin Hcl 0.4 Mg Cap.er.24h 1 Cap PO DAILY Sodium Bicarbonate 650 Mg Tablet 1 Tab PO BID Protonix (Pantoprazole Sodium) 40 Mg Tablet.dr 1 Tab PO BID Multi-Vitamin Daily (Multivitamin) 1 Each Tablet 1 Each PO DAILY Isordil (Isosorbide Dinitrate) 40 Mg Tablet 40 Mg PO TID Combivent Respimat Inhal (Ipratropium/Albuterol Sulfate) 4 Gm Aer.w.adap 1 Inh IH BID Hydralazine Hcl 50 Mg Tablet 1 Tab PO TID wed, wed, wed, sat. Atorvastatin Calcium 10 Mg Tablet 1 Tab PO DAILY Amlodipine Besylate 5 Mg Tablet 5 Mg PO DAILY wed, wed, wed, sat. hold if sbp is less than 110. call dr if sbp is > 170. Amiodarone Hcl 200 Mg Tablet 1 Tab PO DAILY Novolog Flexpen (Insulin Aspart) 100 Unit/1 Ml Insuln.pen 3 Unit SQ TIDAC Folic Acid 1 Mg Tablet 1 Mg PO DAILY Carvedilol 12.5 Mg Tablet 12.5 Mg PO BIDWMEALS wed, wed, wed, sat. hold if sbp is 110. call dr if sbp is > 170. Levothyroxine Sodium 25 Mcg Tablet 75 Mcg PO DAILYAC Vitals/I & O Vital Sign - Last 24 Hours 08/09/16 08/09/16 08/09/16 08/09/16 15:00 15:33 19:16 19:33 Temp 96.4 97.5 96.4 97.5 Pulse 89 78 Resp 12 16 14 B/P 82/65 87/67 Pulse Ox 100 96 O2 Delivery Room Air Room Air Room Air 08/09/16 08/09/16 08/09/16 08/09/16 19:39 20:00 20:39 21:02 B/P 94/66 99/62 O2 Delivery Room Air Room Air 08/09/16 08/09/16 08/10/16 08/10/16 21:39 23:24 02:00 04:33 Temp 97.9 98.3 97.7 97.9 98.3 97.7 Pulse 78 79 Resp 14 16 B/P 87/64 94/72 105/81 99/77 Pulse Ox 98 96 O2 Delivery Room Air Room Air 08/10/16 08/10/16 08/10/16 07:20 08:16 10:18 Temp 97.5 97.5 Pulse 82 Resp 14 B/P 94/72 Pulse Ox 95 96 O2 Delivery Room Air Room Air Room Air Intake and Output 08/09/16 08/09/16 08/10/16 15:00 23:00 07:00 Intake Total 0 ml 0 ml Balance 0 ml 0 ml JOSSE STAHL MD Aug 10, 2016 13:44
[2016-08-10] MEDS ORDERED: MIDODRINE 2.5 MG TABLET PO PRN (16:00)
--- NOTE | 2016-08-10 16:26 | PDOC2 ---
PALLIATIVE CARE Palliative Care Note Palliative Care Met with sister/DPOA Blanca Ardon and mother Brook Hopkins. Requested copy of DPOA document. Reviewed medical condition: ESRD, EDLD, severe malnutrition, cardiomyopathy, HF , DM2, anemia, thrombocytopenia, recent c-diff, Family is aware of the serious illness. They requested full code and full aggressive care. Plan discharge back to intermediate when discharged. PC will sign off. Re-consult if needed. NESTOR ALANIZ Aug 10, 2016 16:26
[2016-08-10] MEDS: CALCIUM CARB/VIT D3 500/200 TABLET PO SCH ×2 (16:47→17:00)
[2016-08-10] MEDS: PHYTONADIONE (VIT K1) 5 MG TABLET PO SCH (16:47)
[2016-08-10] MEDS: FOLIC ACID 1 MG TABLET PO SCH (16:49)
[2016-08-10] MEDS: AMIODARONE HCL 200 MG TABLET PO SCH (16:49)
[2016-08-10] MEDS: ALLOPURINOL 100 MG TABLET. PO SCH (16:50)
[2016-08-10] MEDS: SODIUM BICARBONATE 650 MG TABLET. PO SCH ×2 (16:50→21:20)
[2016-08-10] MEDS: TAMSULOSIN 0.4 MG CAP.ER.24H. PO SCH (16:50)
[2016-08-10 19:40] VITALS: BP 106/76
[2016-08-10] MEDS: ATORVASTATIN CALCIUM 10 MG TABLET. PO SCH (21:20)
[2016-08-10] MEDS: LOPERAMIDE 2 MG CAPSULE PO PRN (21:20)
[2016-08-10 22:50] VITALS: BP 98/73
[2016-08-11] VITALS (31 sets, daily range): BP systolic 56–155; BP diastolic 50–102
[2016-08-11] MEDS ORDERED: METOCLOPRAMIDE HCL 10 MG/2 ML VIAL. IV PRN (02:30)
[2016-08-11] MEDS: CALCIUM CARB/VIT D3 500/200 TABLET PO SCH ×2 (08:00→18:17)
[2016-08-11] MEDS: CALCIUM ACETATE 667 MG CAPSULE PO SCH ×3 (08:00→18:17)
[2016-08-11] MEDS ORDERED: MIDAZOLAM HCL 2 MG/2 ML VIAL. ONE (08:15)
[2016-08-11] MEDS ORDERED: LIDOCAINE 1% / SOD BICARB 8.4% 20 ML VIAL. IJ ONE ×2 (08:15→08:45)
[2016-08-11] MEDS ORDERED: FENTANYL PF 100 MCG/2 ML VIAL. ONE (08:15)
[2016-08-11] MEDS ORDERED: ALBUMIN HUMAN 25% 200 ML IV ONE (08:31)
--- NOTE | 2016-08-11 08:39 | PDOC ---
MODERATE SEDATION ASSESSMENT RISKS/ALTERNATIVES Risks/Alternatives Risks and alternatives of this type of sedation and procedure discussed with: RISK/ALTERNATIVES: Sig. Other (Sister gave consent) H & P ON CHART H & P H & P on chart and reviewed for co-morbid conditions and appropriate labs. H&P ON CHART: Yes STATUS PREG STATUS ASSESSED: N/A MEDS/ALLERGIES REVIEWED Meds/Allergies Reviewed Medications and Allergies including time and route of recently administered narcotics and sedatives. MEDS/ALLERGIES REVIEWED: Yes ASA RATING ASA RATING: III AIRWAY ASSESSMENT Airway Assessment Airway patency, oral function limitations, presence of caps, crowns, dentures, partials, and ability to extend neck assessed. AIRWAY ASSESSMENT: Yes MALLAMPATI SCORE MALLAMPATI SCORE: II PRE-SEDATION ASSESSMENT PRE-SEDATION ASSESSMENT: Yes KYM FUNK MD Aug 11, 2016 08:39
--- NOTE | 2016-08-11 08:43 | PDOC ---
Exam It Account Manager It Account Manager Dennis Water Chaser Water Chaser Merlene Hinson Pre-Procedure Diagnosis Pre-Procedure Diagnosis 56 YO male with CHF, ESRD, Cirrhosis, and recurrent/refractory, massive, symptomatic ascites. Post-Procedure Diagnosis Post-Procedure Diagnosis Same Procedure Performed Procedure Performed Sono guided Tx paracentesis Type of Anesthesia Type of Anesthesia Local + Mod sedation Estimated Blood Loss EBL: Trace Specimens Specimans 10,500 cc straw-clear ascites removed---samples to lab for cell count and culture Condition of Patient Condition of Patient Hemodynamically stable. No apparent complication. Infusion of 50 grams 25% albumin initiated during paracentesis procedure. Disposition Disposition From IR return to [facility] [place]. ? consider PleurX tunneled peritoneal drain placement for refractory ascites. Full report to follow. KYM FUNK MD Aug 11, 2016 08:43
[2016-08-11] MEDS ORDERED: ALBUMIN HUMAN 25% 100 ML IV ONE ×2 (08:45)
[2016-08-11] MEDS ORDERED: FENTANYL PF 100 MCG/2 ML VIAL. IV ONE (08:45)
[2016-08-11] MEDS ORDERED: MIDAZOLAM HCL 2 MG/2 ML VIAL. IV ONE (08:45)
[2016-08-11] MEDS: IPRATRPIUM/ALBUTEROL 0.5/2.5MG 3 ML NEBU. NEB SCH ×2 (09:00→21:00)
[2016-08-11] MEDS: OXYCODONE ER 15 MG TAB.ER.12H. PO SCH ×2 (09:00→22:32)
[2016-08-11] MEDS: AMIODARONE HCL 200 MG TABLET PO SCH (09:00)
[2016-08-11] MEDS: SODIUM BICARBONATE 650 MG TABLET. PO SCH ×2 (09:00→22:32)
[2016-08-11] MEDS: FOLIC ACID 1 MG TABLET PO SCH (09:00)
[2016-08-11] MEDS: TAMSULOSIN 0.4 MG CAP.ER.24H. PO SCH (09:00)
[2016-08-11 09:32] LABS: BF CLARITY HAZY; BF COLOR YELLOW
--- NOTE | 2016-08-11 11:41 | PDOC ---
CARDIO Progress Notes Date and Time Date of Service 08/11/16 Time of Evaluation 1140 Vitals Vitals Vital Signs Date Time Temp Pulse Resp B/P Pulse Ox O2 Delivery O2 Flow Rate FiO2 08/11/16 10:45 90 80/52 08/11/16 10:09 99.6 20 Nasal Cannula 2.0 99.6 08/11/16 09:55 94 Weight Weight [ ] Input and Output Intake and Output Intake and Output 08/11/16 07:00 Intake Total 221 ml Output Total 0 ml Balance 221 ml Intake Oral 0 ml Blood Product IV Normal Saline Flush 221 ml Output Urine Total 0 ml # Bowel Movements 3 Laboratory Labs Laboratory Tests Test 08/10/16 12:39 08/10/16 16:48 08/10/16 21:11 08/11/16 07:27 Glucose (Fingerstick) 85mg/dL (70-99) 58mg/dL (70-99) 172mg/dL (70-99) 106mg/dL (70-99) Test 08/11/16 08:30 Body Fluid Source Ascites Body Fluid Color Yellow Body Fluid Clarity Hazy Body Fluid Nucleated Cells 82/cmm Body Fluid Mononuclear WBCs (%) 99% Body Fluid Polymorphonuclear Cells 1% Body Fluid Total RBCs Counted 1630/cmm Microbiology Micro Microbiology 08/08/16 Blood Culture - Preliminary, Resulted NO GROWTH AFTER 3 DAYS Physical Exam HEENT: Neck Supple W Full Motion Chest: Symmetric LUNGS: Other (diminished bases ) Abdomen: Soft N/T Neurology: alert, oriented, follow commands Assessment Assessment 1. Hypotension secondary to intervascular depletion check orthos lying and sitting recommend compression stockings. No abdominal binder due to significant ascites will likely not benefit from Midodrine; also contraindicated with end-stage hepatic disease on Flomax- use with caution 2. end-stage liver disease with cirrhosis s/p paracentesis discontinue lipitor 3. chronic diastolic heart failure recent echo with preserved LV function appears clinically compensated. fluid management per HD 4. hypothermia now febrile 5. ESRD on HD per nephrology MIKE WILLIS APRN Aug 11, 2016 11:41
[2016-08-11] MEDS: PHYTONADIONE (VIT K1) 5 MG TABLET PO SCH (12:10)
[2016-08-11] MEDS: LEVOTHYROXINE 75 MCG TABLET PO SCH (12:10)
[2016-08-11] MEDS: ALLOPURINOL 100 MG TABLET. PO SCH (12:10)
--- NOTE | 2016-08-11 13:16 | PDOC ---
PROGRESS NOTES Chief Complaint Chief Complaint a/p 1. Missed HD for 1 week 2/2 to low bp, multiple electrolyte imbalance 2. Ascites, recurrent, hepatitis C, cirrhosis: need paracentesis 3. End-stage renal disease, on hemodialysis. 4. Severe thrombocytopenia secondary to cirrhosis. 5. Diabetes mellitus.: SSI 6. Diastolic heart failure, chronic, stable. 7. Hypertension, currently hypotensive, 8. Hypothermia. 9. Severe malnutrition. 10. History of substance abuse, cocaine, marijuana, and ethyl alcohol. 11. Anemia with chronic disease and cirrhosis. 12. low BP Plan HD per nephrology Néstor virgen since febrile Paracentesis today 10.5L out, got albumin blood cx, dc htn meds, cont only amiadorne, watch flomax, add midodrine prn Thrombocytopenia , 2u PLT transfulsion, only got 1u 2/2 fever monitor electrolyte wound care PT/OT CBC/BMP nutritional support overall prognosis poor/guarded. paracentesis and albumin 25% post procedure Hospice consult again, however, family still want aggressive treatment, pt still FC . PAT signed off dc home after HD tmr if no other intervention History of Present Illness History of Present Illness no fever no chills no chest pain looks very weak, with distended Abd cannot answer my questions well chronically taking pain meds for body pain Vitals Vitals Vital Signs Date Time Temp Pulse Resp B/P Pulse Ox O2 Delivery O2 Flow Rate FiO2 08/11/16 10:45 90 80/52 08/11/16 10:09 99.6 20 Nasal Cannula 2.0 99.6 08/11/16 09:55 94 Physical Exam General: Alert, Oriented X3, Cooperative, No acute distress Heart: Regular rate, Normal S1, Normal S2 Lungs: Clear Abdomen: Other (mild diffuse tenderness. firm, distended; ascites present ) Extremities: No edema, Other (diminished DP pulses ) Skin: No significant lesion Labs LABS Laboratory Tests Test 08/10/16 16:48 08/10/16 21:11 08/11/16 07:27 08/11/16 08:30 Glucose (Fingerstick) 58mg/dL (70-99) 172mg/dL (70-99) 106mg/dL (70-99) Body Fluid Source Ascites Body Fluid Color Yellow Body Fluid Clarity Hazy Body Fluid Nucleated Cells 82/cmm Body Fluid Mononuclear WBCs (%) 99% Body Fluid Polymorphonuclear Cells 1% Body Fluid Total RBCs Counted 1630/cmm Review of Systems Review of Systems no fever, chills, sob or chest pain Assessment and Plan Assessmemt and Plan Problems Medical Problems: (1) Ascites Status: Acute (2) End stage liver disease Status: Acute (3) Hypotension Status: Acute (4) Hypothermia Status: Acute Problems: Comment Review of Relevant I have reviewed the following items дмитрий (where applicable) has been applied. Labs Laboratory Tests Test 08/09/16 15:55 08/09/16 17:23 08/09/16 20:38 08/10/16 07:29 Clostridium difficile Toxin (PCR) Negative (Negative) Glucose (Fingerstick) 153mg/dL (70-99) 106mg/dL (70-99) 93mg/dL (70-99) Test 08/10/16 08:05 08/10/16 12:39 08/10/16 16:48 08/10/16 21:11 White Blood Count 4.1x10^3/uL (4.0-11.0) Red Blood Count 3.15x10^6/uL (4.30-5.70) Hemoglobin 8.6g/dL (13.0-17.5) Hematocrit 26.9% (39.0-53.0) Mean Corpuscular Volume 86fL (79-100) Mean Corpuscular Hemoglobin 27pg (25-35) Mean Corpuscular Hemoglobin Concent 32g/dL (31-37) Red Cell Distribution Width 18.9% (11.5-14.5) Platelet Count 39x10^3/uL (140-400) Neutrophils (%) (Auto) 66% (31-73) Lymphocytes (%) (Auto) 24% (24-48) Monocytes (%) (Auto) 7% (0-9) Eosinophils (%) (Auto) 1% (0-3) Basophils (%) (Auto) 1% (0-3) Neutrophils # (Auto) 2.7x10^3uL (1.8-7.7) Lymphocytes # (Auto) 1.0x10^3/uL (1.0-4.8) Monocytes # (Auto) 0.3x10^3/uL (0.0-1.1) Eosinophils # (Auto) 0.0x10^3/uL (0.0-0.7) Basophils # (Auto) 0.0x10^3/uL (0.0-0.2) Prothrombin Time 17.3SEC (11.7-14.0) Prothromb Time International Ratio 1.5 (0.8-1.1) Sodium Level 150mmol/L (136-145) Potassium Level 3.3mmol/L (3.5-5.1) Chloride Level 114mmol/L (98-107) Carbon Dioxide Level 18mmol/L (21-32) Anion Gap 18 (6-14) Blood Urea Nitrogen 75mg/dL (8-26) Creatinine 8.8mg/dL (0.7-1.3) Estimated GFR (Cockcroft-Gault) 7.5 Glucose Level 94mg/dL (70-99) Calcium Level 7.1mg/dL (8.5-10.1) Thyroid Stimulating Hormone (TSH) 8.175uIU/mL (0.358-3.74) Glucose (Fingerstick) 85mg/dL (70-99) 58mg/dL (70-99) 172mg/dL (70-99) Test 08/11/16 07:27 08/11/16 08:30 Glucose (Fingerstick) 106mg/dL (70-99) Body Fluid Source Ascites Body Fluid Color Yellow Body Fluid Clarity Hazy Body Fluid Nucleated Cells 82/cmm Body Fluid Mononuclear WBCs (%) 99% Body Fluid Polymorphonuclear Cells 1% Body Fluid Total RBCs Counted 1630/cmm Laboratory Tests Test 08/10/16 16:48 08/10/16 21:11 08/11/16 07:27 08/11/16 08:30 Glucose (Fingerstick) 58mg/dL (70-99) 172mg/dL (70-99) 106mg/dL (70-99) Body Fluid Source Ascites Body Fluid Color Yellow Body Fluid Clarity Hazy Body Fluid Nucleated Cells 82/cmm Body Fluid Mononuclear WBCs (%) 99% Body Fluid Polymorphonuclear Cells 1% Body Fluid Total RBCs Counted 1630/cmm Microbiology 08/08/16 Blood Culture - Preliminary, Resulted NO GROWTH AFTER 3 DAYS 08/11/16 Gram Stain - Final, Complete Medications Current Medications Morphine Sulfate 2 mg PRN Q2HR PRN IV PAIN Last administered on 08/07/16 22:38 ; Start 08/07/16 at 19:00 Acetaminophen (Tylenol) 650 mg PRN Q4HRS PRN PO MILD PAIN; Start 08/07/16 at 20 :00 Allopurinol (Zyloprim) 100 mg DAILY PO Last administered on 08/11/16 12:10; Start 08/08/16 at 09:00 Amiodarone HCl (Cordarone) 200 mg DAILY PO Last administered on 08/10/16 16:49 ; Start 08/08/16 at 09:00; Stop 08/11/16 at 12:19; Status DC Amlodipine Besylate (Norvasc) 5 mg DAILY PO ; Start 08/08/16 at 09:00; Stop at 13:43; Status DC Atorvastatin Calcium (Lipitor) 10 mg QHS PO Last administered on 08/10/16 21: 20; Start 08/07/16 at 21:00; Stop 08/11/16 at 12:19; Status DC Calcium Acetate (Phoslo) 667 mg TIDWMEALS PO Last administered on 08/10/16 16: 49; Start 08/08/16 at 08:00 Carvedilol (Coreg) 12.5 mg BIDWMEALS PO Last administered on 08/07/16 21:19; Start 08/07/16 at 21:00; Stop 08/10/16 at 13:43; Status DC Darbepoetin Aaron (Aranesp) 60 mcg WEEKLY SQ ; Start 08/14/16 at 09:00 Folic Acid (Folic Acid) 1 mg DAILY PO Last administered on 08/10/16 16:49; Start 08/08/16 at 09:00 Furosemide (Lasix) 40 mg DAILY PO ; Start 08/08/16 at 09:00; Stop 08/10/16 at 16 :05; Status DC Insulin Aspart (Novolog) 3 units TIDAC SQ ; Start 08/08/16 at 07:30; Stop at 09:06; Status DC Levothyroxine Sodium (Synthroid) 75 mcg DAILYAC PO Last administered on 12:10; Start 08/08/16 at 07:30 Loperamide HCl (Imodium) 2 mg PRN Q6HRS PRN PO DIARRHEA Last administered on 21:20; Start 08/07/16 at 20:00 Oxycodone HCl (Oxycontin) 15 mg BID PO Last administered on 08/10/16 21:20; Start 08/07/16 at 21:00 Phytonadione (Mephyton) 10 mg DAILY PO Last administered on 08/11/16 12:10; Start 08/08/16 at 09:00 Sodium Bicarbonate (Sodium Bicarbonate) 650 mg BID PO Last administered on 08/10 21:20; Start 08/07/16 at 21:00 Tamsulosin HCl (Flomax) 0.4 mg DAILY PO Last administered on 08/10/16 16:50; Start 08/08/16 at 09:00 Calcium/Vitamin D (Oscal D 500mg/ 200uts) 1 tab BIDWMEALS PO Last administered on 08/10/16 16:47; Start 08/08/16 at 08:00 Non-Formulary Medication 1 mg PRN IM ; Start 08/07/16 at 20:00; Status UNV Non-Formulary Medication 1 inh BID IH ; Start 08/07/16 at 21:00; Status UNV Oxycodone HCl (Roxicodone) 15 mg PRN Q3HRS PRN PO MODERATE - SEVERE PAIN Last administered on 08/07/16 23:54; Start 08/07/16 at 20:30 Spironolactone (Aldactone) 50 mg DAILY PO ; Start 08/08/16 at 09:00; Stop at 16:05; Status DC Albuterol/ Ipratropium (Duoneb) 3 ml BID NEB Last administered on 08/10/16 08: 15; Start 08/07/16 at 21:00 Dextrose 12.5 gm PRN Q15MIN PRN IV SEE COMMENTS Last administered on 08/09/16 11:18; Start 08/09/16 at 10:15 Dextrose 25 gm 25 gm PRN 1X PRN IV hypoglyceia; Start 08/09/16 at 11:45; Stop 08/09/16 at 12:29; Status DC Albumin Human (Albuminar) 200 ml @ 200 mls/hr 1X PRN PRN IV Hypotension Last administered on 08/10/16 12:13; Start 08/10/16 at 12:00; Stop 08/10/16 at 17:59 ; Status DC Info (PHARMACY MONITORING -- do not chart) 1 each PRN DAILY PRN MC SEE COMMENTS ; Start 08/10/16 at 12:00 Info (PHARMACY MONITORING -- do not chart) 1 each PRN DAILY PRN MC SEE COMMENTS ; Start 08/10/16 at 12:00; Status UNV Midodrine (Proamatine) 5 mg [id number] PO ; Start 08/10/16 at 13:00; Status UNV Midodrine (Proamatine) 2.5 mg 1X STAT PO Last administered on 08/10/16 18:26 ; Start 08/10/16 at 12:59; Stop 08/10/16 at 13:06; Status DC Midodrine (Proamatine) 2.5 mg PRN TID PRN PO BLOOD PRESSURE; Start 08/10/16 at 16:00 Metoclopramide HCl (Reglan) 5 mg PRN Q8HRS PRN IV NAUSEA/VOMITING; Start at 02:30 Lidocaine/Sodium Bicarbonate (Buffered Lidocaine 1%) 20 ml 1X ONCE IJ Last administered on 08/11/16 08:59; Start 08/11/16 at 08:15; Stop 08/11/16 at 08:16 ; Status DC Fentanyl Citrate (Fentanyl 2ml Vial) 100 mcg STK-MED ONCE .ROUTE ; Start at 08:15; Stop 08/11/16 at 08:16; Status DC Midazolam HCl 2 mg 2 mg STK-MED ONCE .ROUTE ; Start 08/11/16 at 08:15; Stop at 08:16; Status DC Albumin Human (Albuminar) 200 ml @ As Directed STK-MED ONCE IV ; Start at 08:31; Stop 08/11/16 at 08:32; Status DC Lidocaine/Sodium Bicarbonate (Buffered Lidocaine 1%) 5 ml 1X ONCE IJ ; Start at 08:45; Stop 08/11/16 at 08:47; Status DC Midazolam HCl (Versed) 0.5 mg 1X ONCE IV Last administered on 08/11/16 09:00 ; Start 08/11/16 at 08:45; Stop 08/11/16 at 08:47; Status DC Fentanyl Citrate 25 mcg 25 mcg 1X ONCE IV Last administered on 08/11/16 09:00 ; Start 08/11/16 at 08:45; Stop 08/11/16 at 08:47; Status DC Albumin Human 100 ml @ 100 mls/hr 1X ONCE IV Last administered on 08/11/16 08:59; Start 08/11/16 at 08:45; Stop 08/11/16 at 09:44; Status DC Albumin Human (Albuminar) 100 ml @ 100 mls/hr 1X ONCE IV Last administered on 08/11/16 08:59; Start 08/11/16 at 08:45; Stop 08/11/16 at 09:44; Status DC Active Scripts Active Reported Keflex (Cephalexin) 500 Mg Capsule 1 Cap PO TID 7 Days Imodium A-D (Loperamide HCl) 2 Mg Capsule 2 Mg PO PRN Q6HRS PRN Acidophilus Lactobacillus (Lactobacillus Acidophilus) 1 Each Capsule 1 Each PO DAILY Furosemide 40 Mg Tablet 40 Mg PO DAILY Aranesp Syringe (Darbepoetin Aaron In Polysorbat) 60 Mcg/0.3 Ml Disp.syrin 60 Mcg SQ WEEKLY Mephyton (Phytonadione) 5 Mg Tablet 10 Mg PO DAILY Phoslo (Calcium Acetate) 667 Mg Capsule 2 Cap PO TIDWMEALS Allopurinol 100 Mg Tablet 1 Tab PO DAILY Spironolactone 50 Mg Tablet 50 Mg PO DAILY Oxycontin (Oxycodone HCl) 15 Mg Tab.er.12h 15 Mg PO BID Oxycodone Hcl 5 Mg Capsule 15 Mg PO Q3HRS PRN Oyster Shell Calcium-Vit D Tab (Calcium Carbonate/Vitamin D2) 1 Each Tablet 1 Each PO BID Acidophilus Lactobacillus (Lactobacillus Acidophilus) 1 Each Capsule 1 Each PO DAILY Glucose Gel (Dextrose) 38 Gm Gel..gram. 38 Gm PO PRN PRN Glucagon Emergency Kit (Glucagon,Human Recombinant) 1 Mg Kit 1 Mg IM PRN Acetaminophen 325 Mg Tablet 650 Mg PO PRN Q4HRS PRN Tamsulosin Hcl 0.4 Mg Cap.er.24h 1 Cap PO DAILY Sodium Bicarbonate 650 Mg Tablet 1 Tab PO BID Protonix (Pantoprazole Sodium) 40 Mg Tablet.dr 1 Tab PO BID Multi-Vitamin Daily (Multivitamin) 1 Each Tablet 1 Each PO DAILY Isordil (Isosorbide Dinitrate) 40 Mg Tablet 40 Mg PO TID Combivent Respimat Inhal (Ipratropium/Albuterol Sulfate) 4 Gm Aer.w.adap 1 Inh IH BID Hydralazine Hcl 50 Mg Tablet 1 Tab PO TID wed sarwat, larissa, sat. Atorvastatin Calcium 10 Mg Tablet 1 Tab PO DAILY Amlodipine Besylate 5 Mg Tablet 5 Mg PO DAILY wed wed, wed, sat. hold if sbp is less than 110. call dr if sbp is > 170. Amiodarone Hcl 200 Mg Tablet 1 Tab PO DAILY Novolog Flexpen (Insulin Aspart) 100 Unit/1 Ml Insuln.pen 3 Unit SQ TIDAC Folic Acid 1 Mg Tablet 1 Mg PO DAILY Carvedilol 12.5 Mg Tablet 12.5 Mg PO BIDWMEALS wed wed, wed, sat. hold if sbp is 110. call dr if sbp is > 170. Levothyroxine Sodium 25 Mcg Tablet 75 Mcg PO DAILYAC Vitals/I & O Vital Sign - Last 24 Hours 08/10/16 08/10/16 08/10/16 08/10/16 16:49 18:26 19:40 20:00 Temp 97.5 97.5 Pulse 84 86 72 Resp 18 B/P 110/58 82/64 106/76 Pulse Ox 96 O2 Delivery Room Air Room Air 08/10/16 08/10/16 08/11/16 08/11/16 21:20 22:50 03:00 05:01 Temp 97.7 98.4 97.7 98.4 Pulse 70 77 85 Resp B/P 98/73 98/71 95/69 Pulse Ox 96 92 O2 Delivery Room Air Room Air Room Air 08/11/16 08/11/16 08/11/16 08/11/16 05:14 06:00 07:00 08:23 Temp 98.6 100.6 98.6 100.6 Pulse 87 91 103 100 Resp B/P 96/71 105/68 94/62 Pulse Ox 95 91 O2 Delivery Room Air Nasal Cannula O2 Flow Rate 6.0 08/11/16 08/11/16 08/11/16 08/11/16 08:28 08:30 08:33 08:39 Pulse 114 98 96 Resp 23 21 21 Pulse Ox 90 91 91 O2 Delivery Nasal Cannula Nasal Cannula Nasal Cannula Nasal Cannula O2 Flow Rate 6.0 2.0 6.0 6.0 08/11/16 08/11/16 08/11/16 08/11/16 08:43 08:49 08:54 09:00 Pulse 94 102 75 Resp 19 21 24 Pulse Ox 91 94 94 94 O2 Delivery Nasal Cannula Nasal Cannula Nasal Cannula Nasal Cannula O2 Flow Rate 6.0 6.0 6.0 6.0 08/11/16 08/11/16 08/11/16 08/11/16 09:00 09:05 09:09 09:14 Pulse 100 85 84 100 Resp 20 Pulse Ox 94 93 93 93 O2 Delivery Nasal Cannula Nasal Cannula Nasal Cannula Nasal Cannula O2 Flow Rate 2.0 2.0 2.0 2.0 08/11/16 08/11/16 08/11/16 08/11/16 09:19 09:25 09:29 09:55 Temp 99.6 99.6 Pulse 98 96 84 94 Resp 17 B/P 97/62 Pulse Ox 94 95 95 94 O2 Delivery Nasal Cannula Nasal Cannula Nasal Cannula Room Air O2 Flow Rate 2.0 2.0 2.0 08/11/16 08/11/16 08/11/16 10:09 10:24 10:45 Temp 99.6 99.6 Pulse 93 91 90 Resp 20 B/P 81/55 81/54 80/52 O2 Delivery Nasal Cannula O2 Flow Rate 2.0 Intake and Output 08/10/16 08/10/16 08/11/16 15:00 23:00 07:00 Intake Total 0 ml 221 ml Output Total 0 ml Balance 0 ml 221 ml JOSSE STAHL MD Aug 11, 2016 13:16
[2016-08-11] MEDS: DEXTROSE 50% 25 GM / 50ML DISP.SYRIN. IV PRN (19:04)
[2016-08-12 02:43] VITALS: BP 95/59
--- NOTE | 2016-08-12 06:44 | RAD ---
Ultrasound-guided diagnostic and therapeutic paracentesis Indication: 56-year-old male with CHF, end-stage renal disease, cirrhosis, and recurrent/refractory, symptomatic, massive ascites. Image guided therapeutic paracentesis has been requested. Anesthesia: 62 minutes moderate sedation was provided utilizing a total of 0.5 mg Versed and 25 mcg fentanyl, IV. The patient was appropriately monitored by a qualified independent observer throughout the time of moderate sedation. Procedure: Informed consent was obtained from the patient. His thrombocytopenia had been appropriately addressed with platelet transfusion. This paracentesis procedure was performed in the CT suite, with the patient in his hospital bed. Preliminary ultrasound examination confirmed the presence of a large volume of abdominal/pelvic ascites. A right lateral abdominal peritoneal fluid collection, suitable for sono guided paracentesis, was selected, was marked, and was documented with a single hard copy ultrasound image. That area was then prepped and draped in the usual sterile fashion. Conscious sedation was provided with IV Versed and fentanyl. Using aseptic technique, local anesthesia, and direct ultrasound guidance, a 21-gauge micropuncture needle was successfully introduced into the selected peritoneal fluid collection. The 21-gauge needle was exchanged over a microguidewire for a micropuncture sheath, which was, in turn, exchanged over a 0.035 inch guidewire for a 6 [place] drainage catheter. Approximately 10,500 cc of straw-clear ascites was removed, samples which were submitted to the clinical laboratory for cell count and culture. The drainage catheter was then removed and a sterile dressing was applied. Patient tolerated the procedure well without apparent complication. Infusion of 50 g 25% albumin was initiated during the paracentesis procedure. Impression: Successful, uneventful ultrasound-guided diagnostic and therapeutic paracentesis, as described.
[2016-08-12 07:00] VITALS: BP 94/64
[2016-08-12] MEDS: IPRATRPIUM/ALBUTEROL 0.5/2.5MG 3 ML NEBU. NEB SCH ×2 (07:29→19:11)
[2016-08-12 08:32] LABS: BASO % 0 % (0-3); EOS % 0 % (0-3); HEMATOCRIT 26.8 % (39.0-53.0); HEMOGLOBIN 8.6 g/dL (13.0-17.5); LYMPH # 0.7 x10^3/uL (1.0-4.8); LYMPH % 7 % (24-48); MEAN CORPUSCULAR HEMOGLOBIN 27 pg (25-35); MEAN CORPUSCULAR HGB CONC 32 g/dL (31-37); MEAN CORPUSCULAR VOLUME 86 fL (79-100); MONO % 5 % (0-9); NEUT % 88 % (31-73); PLATELET COUNT 38 x10^3/uL (140-400); RED BLOOD COUNT 3.13 x10^6/uL (4.30-5.70); RED CELL DISTRIBUTION WIDTH 18.7 % (11.5-14.5); WHITE BLOOD COUNT 10.2 x10^3/uL (4.0-11.0)
[2016-08-12 08:46] LABS: ALBUMIN 1.9 g/dL (3.4-5.0); CALCIUM 7.5 mg/dL (8.5-10.1); CREATININE 6.2 mg/dL (0.7-1.3); GFR 11.3; PHOSPHORUS 3.4 mg/dL (2.6-4.7); POTASSIUM 3.2 mmol/L (3.5-5.1)
[2016-08-12] MEDS: TAMSULOSIN 0.4 MG CAP.ER.24H. PO SCH (09:10)
[2016-08-12] MEDS: CALCIUM CARB/VIT D3 500/200 TABLET PO SCH ×2 (09:10→17:53)
[2016-08-12] MEDS: PHYTONADIONE (VIT K1) 5 MG TABLET PO SCH (09:10)
[2016-08-12] MEDS: OXYCODONE ER 15 MG TAB.ER.12H. PO SCH ×2 (09:11→21:19)
[2016-08-12] MEDS: LEVOTHYROXINE 75 MCG TABLET PO SCH (09:11)
[2016-08-12] MEDS: ALLOPURINOL 100 MG TABLET. PO SCH (09:11)
[2016-08-12] MEDS: SODIUM BICARBONATE 650 MG TABLET. PO SCH ×2 (09:11→21:20)
[2016-08-12] MEDS: FOLIC ACID 1 MG TABLET PO SCH (09:11)
[2016-08-12] MEDS: CALCIUM ACETATE 667 MG CAPSULE PO SCH ×3 (09:11→17:53)
[2016-08-12 10:36] LABS: PLT ESTIMATE DECREASED (ADEQUATE)
[2016-08-12 11:00] VITALS: BP 102/74
[2016-08-12 11:10] LABS: ANISOCYTOSIS PRESENT; OVALOCYTES PRESENT; POIKILOCYTOSIS PRESENT; TARGET CELLS PRESENT; TEAR DROP CELLS PRESENT
--- NOTE | 2016-08-12 11:24 | PDOC ---
Renal-Progress Notes Subjective Notes Notes NONE History of Present Illness Hx of present illness NO CHANGE Vitals Vitals Vital Signs Date Time Temp Pulse Resp B/P Pulse Ox O2 Delivery O2 Flow Rate FiO2 08/12/16 11:00 97.4 99 18 102/74 93 Room Air 97.4 08/11/16 15:00 2.0 Weight Weight [ ] I.O. Intake and Output Intake and Output 08/12/16 06:59 Intake Total 0 ml Output Total 49143 ml Balance -38681 ml Intake Oral 0 ml Other 18100 ml # Bowel Movements 3 Labs Labs Laboratory Tests Test 08/11/16 18:56 08/11/16 19:01 08/11/16 19:06 08/11/16 22:36 Glucose (Fingerstick) 19mg/dL (70-99) 18mg/dL (70-99) 163mg/dL (70-99) 143mg/dL (70-99) Test 08/12/16 08:25 White Blood Count 10.2x10^3/uL (4.0-11.0) Red Blood Count 3.13x10^6/uL (4.30-5.70) Hemoglobin 8.6g/dL (13.0-17.5) Hematocrit 26.8% (39.0-53.0) Mean Corpuscular Volume 86fL (79-100) Mean Corpuscular Hemoglobin 27pg (25-35) Mean Corpuscular Hemoglobin Concent 32g/dL (31-37) Red Cell Distribution Width 18.7% (11.5-14.5) Platelet Count 38x10^3/uL (140-400) Neutrophils (%) (Auto) 88% (31-73) Lymphocytes (%) (Auto) 7% (24-48) Monocytes (%) (Auto) 5% (0-9) Eosinophils (%) (Auto) 0% (0-3) Basophils (%) (Auto) 0% (0-3) Neutrophils # (Auto) 9.0x10^3uL (1.8-7.7) Lymphocytes # (Auto) 0.7x10^3/uL (1.0-4.8) Monocytes # (Auto) 0.5x10^3/uL (0.0-1.1) Eosinophils # (Auto) 0.0x10^3/uL (0.0-0.7) Basophils # (Auto) 0.0x10^3/uL (0.0-0.2) Segmented Neutrophils % 50% (35-66) Band Neutrophils % 39% (0-9) Lymphocytes % 6% (24-48) Atypical Lymphocytes % (Manual) 1% (0-0) Monocytes % 2% (0-10) Metamyelocytes % 2% (0-0) Platelet Estimate Decreased (ADEQUATE) Poikilocytosis Present Anisocytosis Present Target Cells Present Tear Drop Cells Present Ovalocytes Present Sodium Level 144mmol/L (136-145) Potassium Level 3.2mmol/L (3.5-5.1) Chloride Level 108mmol/L (98-107) Carbon Dioxide Level 22mmol/L (21-32) Anion Gap 14 (6-14) Blood Urea Nitrogen 50mg/dL (8-26) Creatinine 6.2mg/dL (0.7-1.3) Estimated GFR (Cockcroft-Gault) 11.3 Glucose Level 96mg/dL (70-99) Calcium Level 7.5mg/dL (8.5-10.1) Phosphorus Level 3.4mg/dL (2.6-4.7) Albumin 1.9g/dL (3.4-5.0) Micro Micro Microbiology 08/08/16 Blood Culture - Preliminary, Resulted NO GROWTH AFTER 4 DAYS 08/11/16 Gram Stain - Final, Complete Physical Exam General Appearance: no apparent distress Skin: warm, dry Respiratory: bilateral CTA Abdomen: soft, distension Genitourinary: bladder flat Neurology: alert Musculoskeletal: Other (DDD) Assessment Assessment IMP ESRD ANEMIA ASCITES PLAN HD TODAY UF TO DW WILL FOLLOW ADRIAN PANCHAL MD Aug 12, 2016 11:24
--- NOTE | 2016-08-12 12:39 | PDOC ---
CARDIO Progress Notes Date and Time Date of Service 08/12/16 Time of Evaluation 1030 Vitals Vitals Vital Signs Date Time Temp Pulse Resp B/P Pulse Ox O2 Delivery O2 Flow Rate FiO2 08/12/16 11:00 97.4 99 18 102/74 93 Room Air 97.4 08/11/16 15:00 2.0 Weight Weight [ ] Input and Output Intake and Output Intake and Output 08/12/16 06:59 Intake Total 0 ml Output Total 48208 ml Balance -65675 ml Intake Oral 0 ml Other 21046 ml # Bowel Movements 3 Laboratory Labs Laboratory Tests Test 08/11/16 18:56 08/11/16 19:01 08/11/16 19:06 08/11/16 22:36 Glucose (Fingerstick) 19mg/dL (70-99) 18mg/dL (70-99) 163mg/dL (70-99) 143mg/dL (70-99) Test 08/12/16 07:45 08/12/16 08:25 08/12/16 12:06 Glucose (Fingerstick) 73mg/dL (70-99) 118mg/dL (70-99) White Blood Count 10.2x10^3/uL (4.0-11.0) Red Blood Count 3.13x10^6/uL (4.30-5.70) Hemoglobin 8.6g/dL (13.0-17.5) Hematocrit 26.8% (39.0-53.0) Mean Corpuscular Volume 86fL (79-100) Mean Corpuscular Hemoglobin 27pg (25-35) Mean Corpuscular Hemoglobin Concent 32g/dL (31-37) Red Cell Distribution Width 18.7% (11.5-14.5) Platelet Count 38x10^3/uL (140-400) Neutrophils (%) (Auto) 88% (31-73) Lymphocytes (%) (Auto) 7% (24-48) Monocytes (%) (Auto) 5% (0-9) Eosinophils (%) (Auto) 0% (0-3) Basophils (%) (Auto) 0% (0-3) Neutrophils # (Auto) 9.0x10^3uL (1.8-7.7) Lymphocytes # (Auto) 0.7x10^3/uL (1.0-4.8) Monocytes # (Auto) 0.5x10^3/uL (0.0-1.1) Eosinophils # (Auto) 0.0x10^3/uL (0.0-0.7) Basophils # (Auto) 0.0x10^3/uL (0.0-0.2) Segmented Neutrophils % 50% (35-66) Band Neutrophils % 39% (0-9) Lymphocytes % 6% (24-48) Atypical Lymphocytes % (Manual) 1% (0-0) Monocytes % 2% (0-10) Metamyelocytes % 2% (0-0) Platelet Estimate Decreased (ADEQUATE) Poikilocytosis Present Anisocytosis Present Target Cells Present Tear Drop Cells Present Ovalocytes Present Sodium Level 144mmol/L (136-145) Potassium Level 3.2mmol/L (3.5-5.1) Chloride Level 108mmol/L (98-107) Carbon Dioxide Level 22mmol/L (21-32) Anion Gap 14 (6-14) Blood Urea Nitrogen 50mg/dL (8-26) Creatinine 6.2mg/dL (0.7-1.3) Estimated GFR (Cockcroft-Gault) 11.3 Glucose Level 96mg/dL (70-99) Calcium Level 7.5mg/dL (8.5-10.1) Phosphorus Level 3.4mg/dL (2.6-4.7) Albumin 1.9g/dL (3.4-5.0) Free Thyroxine 0.98ng/dL (0.76-1.46) Microbiology Micro Microbiology 08/08/16 Blood Culture - Preliminary, Resulted NO GROWTH AFTER 4 DAYS 08/11/16 Gram Stain - Final, Complete Physical Exam HEENT: Neck Supple W Full Motion Chest: Symmetric LUNGS: Other (diminished bases ) Heart: S1S2, RRR Abdomen: Soft N/T Extremities: No Calf Tenderness, Other (trace LE edema ) Neurology: alert, oriented, follow commands Assessment Assessment 1. Hypotension secondary to intervascular depletion continue supportive care. 2. end-stage liver disease with cirrhosis s/p paracentesis; 10.5 L removed 3. chronic diastolic heart failure recent echo with preserved LV function clinically compensated from HF standpoint. fluid management per HD 4. ESRD on HD per nephrology Will follow along peripherally. Please call with questions. MIKE WILLIS APRN Aug 12, 2016 12:39
[2016-08-12] MEDS ORDERED: POTASSIUM CHLORIDE 20 MEQ TABLET.ER. PO ONE (12:45)
[2016-08-12] MEDS ORDERED: IV NORMAL SALINE 1000ML BAG 1,000 ML IV PRN (12:49)
[2016-08-12] MEDS ORDERED: ALBUMIN HUMAN 25% 200 ML IV PRN (13:00)
[2016-08-12] MEDS ORDERED: DIALYSIS PATIENT. MC PRN ×2 (13:00)
--- NOTE | 2016-08-12 13:38 | PDOC ---
PROGRESS NOTES Chief Complaint Chief Complaint a/p 1. Missed HD for 1 week 2/2 to low bp, multiple electrolyte imbalance 2. Ascites, recurrent, hepatitis C, cirrhosis: need paracentesis 3. End-stage renal disease, on hemodialysis. 4. Severe thrombocytopenia secondary to cirrhosis. 5. Diabetes mellitus.: SSI 6. Diastolic heart failure, chronic, stable. 7. Hypertension, currently hypotensive, 8. Hypothermia. 9. Severe malnutrition. 10. History of substance abuse, cocaine, marijuana, and ethyl alcohol. 11. Anemia with chronic disease and cirrhosis. 12. low BP Plan HD per nephrology , get ID consult for hypothermia and bandimia Bear shey resumed Paracentesis today 10.5L out, got albumin blood cx neg dc htn meds,dc coreg and amiadorne, watch flomax, add midodrine prn Thrombocytopenia , 2u PLT transfulsion, only got 1u 2/2 fever monitor electrolyte wound care PT/OT CBC/BMP nutritional support overall prognosis poor/guarded. paracentesis and albumin 25% post procedure Hospice consult again, however, family still want aggressive treatment, pt still FC . PAT signed off check cortisol level tmr dc home after HD tmr if no other intervention History of Present Illness History of Present Illness looks very weak, with distended Abd, Paracentesis 08/11 10.5L removed, however, abd mild distended again today hypothermia again last night cannot answer my questions well chronically taking pain meds for body pain Vitals Vitals Vital Signs Date Time Temp Pulse Resp B/P Pulse Ox O2 Delivery O2 Flow Rate FiO2 08/12/16 11:00 97.4 99 18 102/74 93 Room Air 97.4 08/11/16 15:00 2.0 Physical Exam General: Alert, Oriented X3, Cooperative, No acute distress Heart: Regular rate, Normal S1, Normal S2 Lungs: Clear Abdomen: Other (mild diffuse tenderness. firm, distended; ascites present ) Extremities: No edema, Other (diminished DP pulses ) Skin: No significant lesion Labs LABS Laboratory Tests Test 08/11/16 18:56 08/11/16 19:01 08/11/16 19:06 08/11/16 22:36 Glucose (Fingerstick) 19mg/dL (70-99) 18mg/dL (70-99) 163mg/dL (70-99) 143mg/dL (70-99) Test 08/12/16 07:45 08/12/16 08:25 08/12/16 12:06 Glucose (Fingerstick) 73mg/dL (70-99) 118mg/dL (70-99) White Blood Count 10.2x10^3/uL (4.0-11.0) Red Blood Count 3.13x10^6/uL (4.30-5.70) Hemoglobin 8.6g/dL (13.0-17.5) Hematocrit 26.8% (39.0-53.0) Mean Corpuscular Volume 86fL (79-100) Mean Corpuscular Hemoglobin 27pg (25-35) Mean Corpuscular Hemoglobin Concent 32g/dL (31-37) Red Cell Distribution Width 18.7% (11.5-14.5) Platelet Count 38x10^3/uL (140-400) Neutrophils (%) (Auto) 88% (31-73) Lymphocytes (%) (Auto) 7% (24-48) Monocytes (%) (Auto) 5% (0-9) Eosinophils (%) (Auto) 0% (0-3) Basophils (%) (Auto) 0% (0-3) Neutrophils # (Auto) 9.0x10^3uL (1.8-7.7) Lymphocytes # (Auto) 0.7x10^3/uL (1.0-4.8) Monocytes # (Auto) 0.5x10^3/uL (0.0-1.1) Eosinophils # (Auto) 0.0x10^3/uL (0.0-0.7) Basophils # (Auto) 0.0x10^3/uL (0.0-0.2) Segmented Neutrophils % 50% (35-66) Band Neutrophils % 39% (0-9) Lymphocytes % 6% (24-48) Atypical Lymphocytes % (Manual) 1% (0-0) Monocytes % 2% (0-10) Metamyelocytes % 2% (0-0) Platelet Estimate Decreased (ADEQUATE) Poikilocytosis Present Anisocytosis Present Target Cells Present Tear Drop Cells Present Ovalocytes Present Sodium Level 144mmol/L (136-145) Potassium Level 3.2mmol/L (3.5-5.1) Chloride Level 108mmol/L (98-107) Carbon Dioxide Level 22mmol/L (21-32) Anion Gap 14 (6-14) Blood Urea Nitrogen 50mg/dL (8-26) Creatinine 6.2mg/dL (0.7-1.3) Estimated GFR (Cockcroft-Gault) 11.3 Glucose Level 96mg/dL (70-99) Calcium Level 7.5mg/dL (8.5-10.1) Phosphorus Level 3.4mg/dL (2.6-4.7) Albumin 1.9g/dL (3.4-5.0) Free Thyroxine 0.98ng/dL (0.76-1.46) Review of Systems Review of Systems no fever, chills, sob or chest pain Assessment and Plan Assessmemt and Plan Problems Medical Problems: (1) Ascites Status: Acute (2) End stage liver disease Status: Acute (3) Hypotension Status: Acute (4) Hypothermia Status: Acute Problems: Comment Review of Relevant I have reviewed the following items дмитрий (where applicable) has been applied. Labs Laboratory Tests Test 08/10/16 16:48 08/10/16 21:11 08/11/16 07:27 08/11/16 08:30 Glucose (Fingerstick) 58mg/dL (70-99) 172mg/dL (70-99) 106mg/dL (70-99) Body Fluid Source Ascites Body Fluid Color Yellow Body Fluid Clarity Hazy Body Fluid Nucleated Cells 82/cmm Body Fluid Mononuclear WBCs (%) 99% Body Fluid Polymorphonuclear Cells 1% Body Fluid Total RBCs Counted 1630/cmm Test 08/11/16 18:56 08/11/16 19:01 08/11/16 19:06 08/11/16 22:36 Glucose (Fingerstick) 19mg/dL (70-99) 18mg/dL (70-99) 163mg/dL (70-99) 143mg/dL (70-99) Test 08/12/16 07:45 08/12/16 08:25 08/12/16 12:06 Glucose (Fingerstick) 73mg/dL (70-99) 118mg/dL (70-99) White Blood Count 10.2x10^3/uL (4.0-11.0) Red Blood Count 3.13x10^6/uL (4.30-5.70) Hemoglobin 8.6g/dL (13.0-17.5) Hematocrit 26.8% (39.0-53.0) Mean Corpuscular Volume 86fL (79-100) Mean Corpuscular Hemoglobin 27pg (25-35) Mean Corpuscular Hemoglobin Concent 32g/dL (31-37) Red Cell Distribution Width 18.7% (11.5-14.5) Platelet Count 38x10^3/uL (140-400) Neutrophils (%) (Auto) 88% (31-73) Lymphocytes (%) (Auto) 7% (24-48) Monocytes (%) (Auto) 5% (0-9) Eosinophils (%) (Auto) 0% (0-3) Basophils (%) (Auto) 0% (0-3) Neutrophils # (Auto) 9.0x10^3uL (1.8-7.7) Lymphocytes # (Auto) 0.7x10^3/uL (1.0-4.8) Monocytes # (Auto) 0.5x10^3/uL (0.0-1.1) Eosinophils # (Auto) 0.0x10^3/uL (0.0-0.7) Basophils # (Auto) 0.0x10^3/uL (0.0-0.2) Segmented Neutrophils % 50% (35-66) Band Neutrophils % 39% (0-9) Lymphocytes % 6% (24-48) Atypical Lymphocytes % (Manual) 1% (0-0) Monocytes % 2% (0-10) Metamyelocytes % 2% (0-0) Platelet Estimate Decreased (ADEQUATE) Poikilocytosis Present Anisocytosis Present Target Cells Present Tear Drop Cells Present Ovalocytes Present Sodium Level 144mmol/L (136-145) Potassium Level 3.2mmol/L (3.5-5.1) Chloride Level 108mmol/L (98-107) Carbon Dioxide Level 22mmol/L (21-32) Anion Gap 14 (6-14) Blood Urea Nitrogen 50mg/dL (8-26) Creatinine 6.2mg/dL (0.7-1.3) Estimated GFR (Cockcroft-Gault) 11.3 Glucose Level 96mg/dL (70-99) Calcium Level 7.5mg/dL (8.5-10.1) Phosphorus Level 3.4mg/dL (2.6-4.7) Albumin 1.9g/dL (3.4-5.0) Free Thyroxine 0.98ng/dL (0.76-1.46) Laboratory Tests Test 08/11/16 18:56 08/11/16 19:01 08/11/16 19:06 08/11/16 22:36 Glucose (Fingerstick) 19mg/dL (70-99) 18mg/dL (70-99) 163mg/dL (70-99) 143mg/dL (70-99) Test 08/12/16 07:45 08/12/16 08:25 08/12/16 12:06 Glucose (Fingerstick) 73mg/dL (70-99) 118mg/dL (70-99) White Blood Count 10.2x10^3/uL (4.0-11.0) Red Blood Count 3.13x10^6/uL (4.30-5.70) Hemoglobin 8.6g/dL (13.0-17.5) Hematocrit 26.8% (39.0-53.0) Mean Corpuscular Volume 86fL (79-100) Mean Corpuscular Hemoglobin 27pg (25-35) Mean Corpuscular Hemoglobin Concent 32g/dL (31-37) Red Cell Distribution Width 18.7% (11.5-14.5) Platelet Count 38x10^3/uL (140-400) Neutrophils (%) (Auto) 88% (31-73) Lymphocytes (%) (Auto) 7% (24-48) Monocytes (%) (Auto) 5% (0-9) Eosinophils (%) (Auto) 0% (0-3) Basophils (%) (Auto) 0% (0-3) Neutrophils # (Auto) 9.0x10^3uL (1.8-7.7) Lymphocytes # (Auto) 0.7x10^3/uL (1.0-4.8) Monocytes # (Auto) 0.5x10^3/uL (0.0-1.1) Eosinophils # (Auto) 0.0x10^3/uL (0.0-0.7) Basophils # (Auto) 0.0x10^3/uL (0.0-0.2) Segmented Neutrophils % 50% (35-66) Band Neutrophils % 39% (0-9) Lymphocytes % 6% (24-48) Atypical Lymphocytes % (Manual) 1% (0-0) Monocytes % 2% (0-10) Metamyelocytes % 2% (0-0) Platelet Estimate Decreased (ADEQUATE) Poikilocytosis Present Anisocytosis Present Target Cells Present Tear Drop Cells Present Ovalocytes Present Sodium Level 144mmol/L (136-145) Potassium Level 3.2mmol/L (3.5-5.1) Chloride Level 108mmol/L (98-107) Carbon Dioxide Level 22mmol/L (21-32) Anion Gap 14 (6-14) Blood Urea Nitrogen 50mg/dL (8-26) Creatinine 6.2mg/dL (0.7-1.3) Estimated GFR (Cockcroft-Gault) 11.3 Glucose Level 96mg/dL (70-99) Calcium Level 7.5mg/dL (8.5-10.1) Phosphorus Level 3.4mg/dL (2.6-4.7) Albumin 1.9g/dL (3.4-5.0) Free Thyroxine 0.98ng/dL (0.76-1.46) Microbiology 08/08/16 Blood Culture - Preliminary, Resulted NO GROWTH AFTER 4 DAYS 08/11/16 Anaerobic/Aerobic Culture, Resulted Pending 08/11/16 Anaerobic Culture Result 1 (JAMES), Resulted Pending 08/11/16 Aerobic Culture - Preliminary, Resulted 08/11/16 Aerobic Culture Result 1 (JAMES) - Preliminary, Resulted Medications Current Medications Morphine Sulfate 2 mg PRN Q2HR PRN IV PAIN Last administered on 08/07/16 22:38 ; Start 08/07/16 at 19:00 Acetaminophen (Tylenol) 650 mg PRN Q4HRS PRN PO MILD PAIN; Start 08/07/16 at 20 :00 Allopurinol (Zyloprim) 100 mg DAILY PO Last administered on 08/12/16 09:11; Start 08/08/16 at 09:00 Amiodarone HCl (Cordarone) 200 mg DAILY PO Last administered on 08/10/16 16:49 ; Start 08/08/16 at 09:00; Stop 08/11/16 at 12:19; Status DC Amlodipine Besylate (Norvasc) 5 mg DAILY PO ; Start 08/08/16 at 09:00; Stop at 13:43; Status DC Atorvastatin Calcium (Lipitor) 10 mg QHS PO Last administered on 08/10/16 21: 20; Start 08/07/16 at 21:00; Stop 08/11/16 at 12:19; Status DC Calcium Acetate (Phoslo) 667 mg TIDWMEALS PO Last administered on 08/12/16 09: 11; Start 08/08/16 at 08:00 Carvedilol (Coreg) 12.5 mg BIDWMEALS PO Last administered on 08/07/16 21:19; Start 08/07/16 at 21:00; Stop 08/10/16 at 13:43; Status DC Darbepoetin Aaron (Aranesp) 60 mcg WEEKLY SQ ; Start 08/14/16 at 09:00 Folic Acid (Folic Acid) 1 mg DAILY PO Last administered on 08/12/16 09:11; Start 08/08/16 at 09:00 Furosemide (Lasix) 40 mg DAILY PO ; Start 08/08/16 at 09:00; Stop 08/10/16 at 16 :05; Status DC Insulin Aspart (Novolog) 3 units TIDAC SQ ; Start 08/08/16 at 07:30; Stop at 09:06; Status DC Levothyroxine Sodium (Synthroid) 75 mcg DAILYAC PO Last administered on 09:11; Start 08/08/16 at 07:30 Loperamide HCl (Imodium) 2 mg PRN Q6HRS PRN PO DIARRHEA Last administered on 21:20; Start 08/07/16 at 20:00 Oxycodone HCl (Oxycontin) 15 mg BID PO Last administered on 08/12/16 09:11; Start 08/07/16 at 21:00 Phytonadione (Mephyton) 10 mg DAILY PO Last administered on 08/12/16 09:10; Start 08/08/16 at 09:00 Sodium Bicarbonate (Sodium Bicarbonate) 650 mg BID PO Last administered on 08/12 09:11; Start 08/07/16 at 21:00 Tamsulosin HCl (Flomax) 0.4 mg DAILY PO Last administered on 08/12/16 09:10; Start 08/08/16 at 09:00 Calcium/Vitamin D (Oscal D 500mg/ 200uts) 1 tab BIDWMEALS PO Last administered on 08/12/16 09:10; Start 08/08/16 at 08:00 Non-Formulary Medication 1 mg PRN IM ; Start 08/07/16 at 20:00; Status UNV Non-Formulary Medication 1 inh BID IH ; Start 08/07/16 at 21:00; Status UNV Oxycodone HCl (Roxicodone) 15 mg PRN Q3HRS PRN PO MODERATE - SEVERE PAIN Last administered on 08/07/16 23:54; Start 08/07/16 at 20:30 Spironolactone (Aldactone) 50 mg DAILY PO ; Start 08/08/16 at 09:00; Stop at 16:05; Status DC Albuterol/ Ipratropium (Duoneb) 3 ml BID NEB Last administered on 08/12/16 07: 29; Start 08/07/16 at 21:00 Dextrose 12.5 gm PRN Q15MIN PRN IV SEE COMMENTS Last administered on 08/11/16 19:04; Start 08/09/16 at 10:15 Dextrose 25 gm 25 gm PRN 1X PRN IV hypoglyceia; Start 08/09/16 at 11:45; Stop 08/09/16 at 12:29; Status DC Albumin Human (Albuminar) 200 ml @ 200 mls/hr 1X PRN PRN IV Hypotension Last administered on 08/10/16 12:13; Start 08/10/16 at 12:00; Stop 08/10/16 at 17:59 ; Status DC Info (PHARMACY MONITORING -- do not chart) 1 each PRN DAILY PRN MC SEE COMMENTS ; Start 08/10/16 at 12:00 Info (PHARMACY MONITORING -- do not chart) 1 each PRN DAILY PRN MC SEE COMMENTS ; Start 08/10/16 at 12:00; Status UNV Midodrine (Proamatine) 5 mg [id number] PO ; Start 08/10/16 at 13:00; Status UNV Midodrine (Proamatine) 2.5 mg 1X STAT PO Last administered on 08/10/16 18:26 ; Start 08/10/16 at 12:59; Stop 08/10/16 at 13:06; Status DC Midodrine (Proamatine) 2.5 mg PRN TID PRN PO BLOOD PRESSURE; Start 08/10/16 at 16:00 Metoclopramide HCl (Reglan) 5 mg PRN Q8HRS PRN IV NAUSEA/VOMITING; Start at 02:30 Lidocaine/Sodium Bicarbonate (Buffered Lidocaine 1%) 20 ml 1X ONCE IJ Last administered on 08/11/16 08:59; Start 08/11/16 at 08:15; Stop 08/11/16 at 08:16 ; Status DC Fentanyl Citrate (Fentanyl 2ml Vial) 100 mcg STK-MED ONCE .ROUTE ; Start at 08:15; Stop 08/11/16 at 08:16; Status DC Midazolam HCl 2 mg 2 mg STK-MED ONCE .ROUTE ; Start 08/11/16 at 08:15; Stop at 08:16; Status DC Albumin Human (Albuminar) 200 ml @ As Directed STK-MED ONCE IV ; Start at 08:31; Stop 08/11/16 at 08:32; Status DC Lidocaine/Sodium Bicarbonate (Buffered Lidocaine 1%) 5 ml 1X ONCE IJ ; Start at 08:45; Stop 08/11/16 at 08:47; Status DC Midazolam HCl (Versed) 0.5 mg 1X ONCE IV Last administered on 08/11/16 09:00 ; Start 08/11/16 at 08:45; Stop 08/11/16 at 08:47; Status DC Fentanyl Citrate 25 mcg 25 mcg 1X ONCE IV Last administered on 08/11/16 09:00 ; Start 08/11/16 at 08:45; Stop 08/11/16 at 08:47; Status DC Albumin Human 100 ml @ 100 mls/hr 1X ONCE IV Last administered on 08/11/16 08:59; Start 08/11/16 at 08:45; Stop 08/11/16 at 09:44; Status DC Albumin Human (Albuminar) 100 ml @ 100 mls/hr 1X ONCE IV Last administered on 08/11/16 08:59; Start 08/11/16 at 08:45; Stop 08/11/16 at 09:44; Status DC Potassium Chloride 20 meq 20 meq 1X ONCE PO ; Start 08/12/16 at 12:45; Stop at 12:46; Status DC Sodium Chloride 1,000 ml @ 1,000 mls/hr Q1H PRN IV hypotension; Start 08/12/16 at 12:49; Stop 08/12/16 at 18:48 Albumin Human (Albuminar) 200 ml @ 200 mls/hr 1X PRN PRN IV Hypotension; Start 08/12/16 at 13:00; Stop 08/12/16 at 18:59 Info (PHARMACY MONITORING -- do not chart) 1 each PRN DAILY PRN MC SEE COMMENTS ; Start 08/12/16 at 13:00; Status UNV Info (PHARMACY MONITORING -- do not chart) 1 each PRN DAILY PRN MC SEE COMMENTS ; Start 08/12/16 at 13:00; Stop 08/12/16 at 13:00; Status DC Active Scripts Active Reported Keflex (Cephalexin) 500 Mg Capsule 1 Cap PO TID 7 Days Imodium A-D (Loperamide HCl) 2 Mg Capsule 2 Mg PO PRN Q6HRS PRN Acidophilus Lactobacillus (Lactobacillus Acidophilus) 1 Each Capsule 1 Each PO DAILY Furosemide 40 Mg Tablet 40 Mg PO DAILY Aranesp Syringe (Darbepoetin Aaron In Polysorbat) 60 Mcg/0.3 Ml Disp.syrin 60 Mcg SQ WEEKLY Mephyton (Phytonadione) 5 Mg Tablet 10 Mg PO DAILY Phoslo (Calcium Acetate) 667 Mg Capsule 2 Cap PO TIDWMEALS Allopurinol 100 Mg Tablet 1 Tab PO DAILY Spironolactone 50 Mg Tablet 50 Mg PO DAILY Oxycontin (Oxycodone HCl) 15 Mg Tab.er.12h 15 Mg PO BID Oxycodone Hcl 5 Mg Capsule 15 Mg PO Q3HRS PRN Oyster Shell Calcium-Vit D Tab (Calcium Carbonate/Vitamin D2) 1 Each Tablet 1 Each PO BID Acidophilus Lactobacillus (Lactobacillus Acidophilus) 1 Each Capsule 1 Each PO DAILY Glucose Gel (Dextrose) 38 Gm Gel..gram. 38 Gm PO PRN PRN Glucagon Emergency Kit (Glucagon,Human Recombinant) 1 Mg Kit 1 Mg IM PRN Acetaminophen 325 Mg Tablet 650 Mg PO PRN Q4HRS PRN Tamsulosin Hcl 0.4 Mg Cap.er.24h 1 Cap PO DAILY Sodium Bicarbonate 650 Mg Tablet 1 Tab PO BID Protonix (Pantoprazole Sodium) 40 Mg Tablet.dr 1 Tab PO BID Multi-Vitamin Daily (Multivitamin) 1 Each Tablet 1 Each PO DAILY Isordil (Isosorbide Dinitrate) 40 Mg Tablet 40 Mg PO TID Combivent Respimat Inhal (Ipratropium/Albuterol Sulfate) 4 Gm Aer.w.adap 1 Inh IH BID Hydralazine Hcl 50 Mg Tablet 1 Tab PO TID wed, wed, wed, sat. Atorvastatin Calcium 10 Mg Tablet 1 Tab PO DAILY Amlodipine Besylate 5 Mg Tablet 5 Mg PO DAILY wed, wed, wed, sat. hold if sbp is less than 110. call dr if sbp is > 170. Amiodarone Hcl 200 Mg Tablet 1 Tab PO DAILY Novolog Flexpen (Insulin Aspart) 100 Unit/1 Ml Insuln.pen 3 Unit SQ TIDAC Folic Acid 1 Mg Tablet 1 Mg PO DAILY Carvedilol 12.5 Mg Tablet 12.5 Mg PO BIDWMEALS wed, wed, sat. hold if sbp is 110. call dr if sbp is > 170. Levothyroxine Sodium 25 Mcg Tablet 75 Mcg PO DAILYAC Vitals/I & O Vital Sign - Last 24 Hours 08/11/16 08/11/16 08/11/16 08/11/16 14:00 15:00 18:26 19:00 Temp 98.3 94.5 98.3 94.5 Pulse 86 85 74 Resp 17 B/P 56/59 91/61 106/76 Pulse Ox 93 96 92 O2 Delivery Nasal Cannula Room Air Room Air O2 Flow Rate 2.0 08/11/16 08/11/16 08/11/16 08/11/16 20:00 21:03 22:32 23:00 Temp 97.3 98.5 97.3 98.5 Pulse 78 Resp 19 18 B/P 98/73 Pulse Ox 95 O2 Delivery Room Air Room Air Room Air 08/12/16 08/12/16 08/12/16 08/12/16 02:43 07:00 07:30 09:11 Temp 99.2 98.2 99.2 98.2 Pulse 97 82 Resp 20 20 B/P 95/59 94/64 Pulse Ox 92 92 96 O2 Delivery Room Air Room Air Room Air Room Air 08/12/16 11:00 Temp 97.4 97.4 Pulse 99 Resp 18 B/P 102/74 Pulse Ox 93 O2 Delivery Room Air Intake and Output 08/11/16 08/11/16 08/12/16 15:00 23:00 07:00 Intake Total 0 ml Output Total 05915 ml Balance -64776 ml 0 ml JOSSE STAHL MD Aug 12, 2016 13:37
[2016-08-12 15:00] VITALS: BP 113/79
[2016-08-12 19:50] VITALS: BP 106/75
[2016-08-12 22:43] VITALS: BP 104/69
[2016-08-13 03:55] VITALS: BP 132/80
[2016-08-13] MEDS: IPRATRPIUM/ALBUTEROL 0.5/2.5MG 3 ML NEBU. NEB SCH (07:31)
--- NOTE | 2016-08-13 07:43 | PDOC ---
Infectious Disease Note Vital Sign Vital Signs Vital Signs Date Time Temp Pulse Resp B/P Pulse Ox O2 Delivery O2 Flow Rate FiO2 08/13/16 07:32 96 Room Air 08/13/16 03:55 98.7 96 18 132/80 98.7 Labs Lab Laboratory Tests Test 08/12/16 07:45 08/12/16 08:25 08/12/16 11:45 08/12/16 12:06 Glucose (Fingerstick) 73mg/dL (70-99) 118mg/dL (70-99) White Blood Count 10.2x10^3/uL (4.0-11.0) Red Blood Count 3.13x10^6/uL (4.30-5.70) Hemoglobin 8.6g/dL (13.0-17.5) Hematocrit 26.8% (39.0-53.0) Mean Corpuscular Volume 86fL (79-100) Mean Corpuscular Hemoglobin 27pg (25-35) Mean Corpuscular Hemoglobin Concent 32g/dL (31-37) Red Cell Distribution Width 18.7% (11.5-14.5) Platelet Count 38x10^3/uL (140-400) Neutrophils (%) (Auto) 88% (31-73) Lymphocytes (%) (Auto) 7% (24-48) Monocytes (%) (Auto) 5% (0-9) Eosinophils (%) (Auto) 0% (0-3) Basophils (%) (Auto) 0% (0-3) Neutrophils # (Auto) 9.0x10^3uL (1.8-7.7) Lymphocytes # (Auto) 0.7x10^3/uL (1.0-4.8) Monocytes # (Auto) 0.5x10^3/uL (0.0-1.1) Eosinophils # (Auto) 0.0x10^3/uL (0.0-0.7) Basophils # (Auto) 0.0x10^3/uL (0.0-0.2) Segmented Neutrophils % 50% (35-66) Band Neutrophils % 39% (0-9) Lymphocytes % 6% (24-48) Atypical Lymphocytes % (Manual) 1% (0-0) Monocytes % 2% (0-10) Metamyelocytes % 2% (0-0) Platelet Estimate Decreased (ADEQUATE) Poikilocytosis Present Anisocytosis Present Target Cells Present Tear Drop Cells Present Ovalocytes Present Sodium Level 144mmol/L (136-145) Potassium Level 3.2mmol/L (3.5-5.1) Chloride Level 108mmol/L (98-107) Carbon Dioxide Level 22mmol/L (21-32) Anion Gap 14 (6-14) Blood Urea Nitrogen 50mg/dL (8-26) Creatinine 6.2mg/dL (0.7-1.3) Estimated GFR (Cockcroft-Gault) 11.3 Glucose Level 96mg/dL (70-99) Calcium Level 7.5mg/dL (8.5-10.1) Phosphorus Level 3.4mg/dL (2.6-4.7) Albumin 1.9g/dL (3.4-5.0) Free Thyroxine 0.98ng/dL (0.76-1.46) Cortisol AM Sample 18.8ug/dL (6.2-19.4) Test 08/12/16 16:26 08/12/16 20:33 Glucose (Fingerstick) 266mg/dL (70-99) 211mg/dL (70-99) Objective Assessment Hypothermia off and on ESRD ESLD Plan Plan of Care no need for antibiotics ok to d/c to [facility] prognosis poor CARMINE CLIFTON MD Aug 13, 2016 07:42
[2016-08-13 07:45] VITALS: BP 121/81
[2016-08-13] MEDS: FOLIC ACID 1 MG TABLET PO SCH (08:54)
[2016-08-13] MEDS: CALCIUM CARB/VIT D3 500/200 TABLET PO SCH (08:55)
[2016-08-13] MEDS: ALLOPURINOL 100 MG TABLET. PO SCH (08:55)
[2016-08-13] MEDS: CALCIUM ACETATE 667 MG CAPSULE PO SCH ×2 (08:55→12:00)
[2016-08-13] MEDS: LEVOTHYROXINE 75 MCG TABLET PO SCH (08:55)
[2016-08-13] MEDS: SODIUM BICARBONATE 650 MG TABLET. PO SCH (08:55)
[2016-08-13] MEDS: PHYTONADIONE (VIT K1) 5 MG TABLET PO SCH (08:55)
[2016-08-13] MEDS: OXYCODONE ER 15 MG TAB.ER.12H. PO SCH ×2 (08:59→14:17)
[2016-08-13] MEDS: TAMSULOSIN 0.4 MG CAP.ER.24H. PO SCH (09:00)
[2016-08-13 09:10] LABS: BASO % 0 % (0-3); EOS % 1 % (0-3); HEMATOCRIT 25.9 % (39.0-53.0); HEMOGLOBIN 8.3 g/dL (13.0-17.5); LYMPH # 0.7 x10^3/uL (1.0-4.8); LYMPH % 8 % (24-48); MEAN CORPUSCULAR HEMOGLOBIN 27 pg (25-35); MEAN CORPUSCULAR HGB CONC 32 g/dL (31-37); MEAN CORPUSCULAR VOLUME 86 fL (79-100); MONO % 4 % (0-9); NEUT % 86 % (31-73); PLATELET COUNT 34 x10^3/uL (140-400); RED BLOOD COUNT 3.02 x10^6/uL (4.30-5.70); RED CELL DISTRIBUTION WIDTH 18.3 % (11.5-14.5); WHITE BLOOD COUNT 7.9 x10^3/uL (4.0-11.0)
[2016-08-13 10:23] VITALS: BP 92/62
[2016-08-13] MEDS ORDERED: MIDO2.5T PO (10:38)
--- NOTE | 2016-08-13 11:28 | PDOC ---
Renal-Progress Notes Subjective Notes Notes NONE History of Present Illness Hx of present illness NO CHANGE Vitals Vitals Vital Signs Date Time Temp Pulse Resp B/P Pulse Ox O2 Delivery O2 Flow Rate FiO2 08/13/16 10:23 98.2 98 15 92/62 96 Room Air 98.2 Weight Weight [ ] I.O. Intake and Output Intake and Output 08/13/16 07:00 Intake Total 1160 ml Balance 1160 ml Intake Oral 1160 ml # Bowel Movements 9 Labs Labs Laboratory Tests Test 08/12/16 11:45 08/12/16 12:06 08/12/16 16:26 08/12/16 20:33 Cortisol AM Sample 18.8ug/dL (6.2-19.4) Glucose (Fingerstick) 118mg/dL (70-99) 266mg/dL (70-99) 211mg/dL (70-99) Test 08/13/16 08:45 08/13/16 08:48 White Blood Count 7.9x10^3/uL (4.0-11.0) Red Blood Count 3.02x10^6/uL (4.30-5.70) Hemoglobin 8.3g/dL (13.0-17.5) Hematocrit 25.9% (39.0-53.0) Mean Corpuscular Volume 86fL (79-100) Mean Corpuscular Hemoglobin 27pg (25-35) Mean Corpuscular Hemoglobin Concent 32g/dL (31-37) Red Cell Distribution Width 18.3% (11.5-14.5) Platelet Count 34x10^3/uL (140-400) Neutrophils (%) (Auto) 86% (31-73) Lymphocytes (%) (Auto) 8% (24-48) Monocytes (%) (Auto) 4% (0-9) Eosinophils (%) (Auto) 1% (0-3) Basophils (%) (Auto) 0% (0-3) Neutrophils # (Auto) 6.9x10^3uL (1.8-7.7) Lymphocytes # (Auto) 0.7x10^3/uL (1.0-4.8) Monocytes # (Auto) 0.3x10^3/uL (0.0-1.1) Eosinophils # (Auto) 0.1x10^3/uL (0.0-0.7) Basophils # (Auto) 0.0x10^3/uL (0.0-0.2) Glucose (Fingerstick) 149mg/dL (70-99) Micro Micro Microbiology 08/08/16 Blood Culture - Final, Complete NO GROWTH AFTER 5 DAYS 08/11/16 Anaerobic/Aerobic Culture, Resulted Pending 08/11/16 Anaerobic Culture Result 1 (JAMES), Resulted Pending 08/11/16 Aerobic Culture - Preliminary, Resulted 08/11/16 Aerobic Culture Result 1 (JAMES) - Preliminary, Resulted Physical Exam General Appearance: no apparent distress Skin: warm, dry Respiratory: bilateral CTA Abdomen: soft, distension Genitourinary: bladder flat Neurology: alert, oriented, follow commands Musculoskeletal: Other (DDD) Assessment Assessment IMP ESRD ANEMIA ASCITES S/P PARACENTESIS PLAN HD TOMORROW POOR PROGNOSIS WILL FOLLOW ADRIAN PANCHAL MD Aug 13, 2016 11:28
--- NOTE | 2016-08-13 15:00 | PDOC3 ---
Discharge Summary [facility] Date of Admission: Aug 07, 2016 Discharge Date: Aug 13, 2016 Admitting Diagnosis 1. Missed HD for 1 week 2/2 to low bp, multiple electrolyte imbalance 2. Ascites, recurrent, hepatitis C, cirrhosis: need paracentesis 3. End-stage renal disease, on hemodialysis. 4. Severe thrombocytopenia secondary to cirrhosis. 5. Diabetes mellitus.: SSI 6. Diastolic heart failure, chronic, stable. 7. Hypertension, currently hypotensive, 8. Hypothermia. 9. Severe malnutrition. 10. History of substance abuse, cocaine, marijuana, and ethyl alcohol. 11. Anemia with chronic disease and cirrhosis. 12. low BP, baseline Problems: Final Diagnosis Problems Medical Problems: (1) Ascites Status: Acute (2) End stage liver disease Status: Acute (3) Hypotension Status: Acute (4) Hypothermia Status: Acute CONSULTS renal id Brief Hospital Course Mr. Sparks is a 56 old M, came from [facility] every 1-2 weeks , with either abd evans with ascites or missing HD. pT came for hypothermia again this time with low bp, ascietes with hep C need paracentesis, and missing HD again with low BP. Pt got paracentesis, 10.5L removed, feels better. Still low bp, responding well with HTN meds held, and albumin. also has intermittent hypothermia, likely 2/2 low intravascular volum. pt has minimal urine output. dc all HTN meds, midodrine prn, pt has fast ascites accumulation. hospice consulted again, but family is unrealistic and want everything. dc time 35min. General: Alert, Oriented X3, Cooperative, No acute distress Heart: Regular rate, Normal S1, Normal S2 Lungs: Clear Abdomen: Other (mild diffuse tenderness. firm, distended; ascites present ) Extremities: No edema, Other (diminished DP pulses ) Skin: No significant lesion Patient History: Patient reports no known family medical history. Problems: Disposition SNF CONDITION AT DISCHARGE: Improved Diet renal Scheduled Allopurinol (Allopurinol) 1 TAB PO DAILY (Reported) Atorvastatin Calcium (Atorvastatin Calcium) 1 TAB PO DAILY (Reported) Calcium Acetate (Phoslo) 2 CAP PO TIDWMEALS (Reported) Calcium Carbonate/Vitamin D2 (Oyster Shell Calcium-Vit D Tab) 1 EACH PO BID ( Reported) Darbepoetin Aaron In Polysorbat (Aranesp Syringe) 60 MCG SQ WEEKLY (Reported) Folic Acid (Folic Acid) 1 MG PO DAILY (Reported) Glucagon,Human Recombinant (Glucagon Emergency Kit) 1 MG IM PRN (Reported) Ipratropium/Albuterol Sulfate (Combivent Respimat Inhal) 1 INH IH BID (Reported ) Lactobacillus Acidophilus (Acidophilus Lactobacillus) 1 EACH PO DAILY (Reported ) Levothyroxine Sodium (Levothyroxine Sodium) 75 MCG PO DAILYAC (Reported) Multivitamin (Multi-Vitamin Daily) 1 EACH PO DAILY (Reported) Oxycodone Hcl (Oxycontin) 15 MG PO BID (Reported) Pantoprazole Sodium (Protonix) 1 TAB PO BID (Reported) Phytonadione (Mephyton) 10 MG PO DAILY (Reported) Sodium Bicarbonate (Sodium Bicarbonate) 1 TAB PO BID (Reported) Scheduled PRN Acetaminophen (Acetaminophen) 650 MG PO PRN Q4HRS PRN PRN PAIN (Reported) Loperamide HCl (Imodium A-D) 2 MG PO PRN Q6HRS PRN PRN DIARRHEA (Reported) Midodrine Hcl (Midodrine Hcl) 2.5 MG PO PRN TID PRN PRN BLOOD PRESSURE Oxycodone Hcl (Oxycodone Hcl) 15 MG PO Q3HRS PRN PRN PAIN (Reported) Discontinued Medications Amiodarone Hcl (Amiodarone Hcl) 1 TAB PO DAILY (Reported) Amlodipine Besylate (Amlodipine Besylate) 5 MG PO DAILY (Reported) Carvedilol (Carvedilol) 12.5 MG PO BIDWMEALS (Reported) Cephalexin (Keflex) 1 CAP PO TID (Reported) Dextrose (Glucose Gel) 38 GM PO PRN PRN PRN Low blood sugar (Reported) Furosemide (Furosemide) 40 MG PO DAILY (Reported) Hydralazine Hcl (Hydralazine Hcl) 1 TAB PO TID (Reported) Insulin Aspart (Novolog Flexpen) 3 UNIT SQ TIDAC (Reported) Isosorbide Dinitrate (Isordil) 40 MG PO TID (Reported) Lactobacillus Acidophilus (Acidophilus Lactobacillus) 1 EACH PO DAILY (Reported ) Spironolactone (Spironolactone) 50 MG PO DAILY (Reported) Tamsulosin Hcl (Tamsulosin Hcl) 1 CAP PO DAILY (Reported) Follow Up pcp in 2 weeks JOSSE STAHL MD Aug 13, 2016 15:00
--- NOTE | 2016-08-14 05:52 | CONS ---
DATE OF CONSULTATION: 08/13/2016 REQUESTING PHYSICIAN: Dr. Soriano. REASON FOR CONSULTATION: Hypothermia. HISTORY OF PRESENT ILLNESS: This is a 56-year-old -[place] gentleman with a history of end-stage renal disease, on hemodialysis; also, end-stage liver disease with ascites and off and on he is requiring paracentesis. The patient came in with hypothermia, temperature of 94. The patient had culture done, which was negative. The patient had paracentesis done which was negative. The patient's hypothermia then off and on goes up into normal number to as high as 100.4 and is all over the place in the chart. The patient is not on any antibiotics. The patient is alert, awake, and appropriate. He says he feels fine. He is ready to go home. Denies any nausea, vomiting, diarrhea. Denies any chest pain, shortness of breath, abdominal pain, urinary symptoms. PAST MEDICAL HISTORY: Positive for end-stage renal disease, end-stage liver disease, hyperlipidemia, hypertension, COPD, dementia, even listed gout, diabetes and hypothyroidism. SOCIAL HISTORY: Negative for smoking, alcohol, or illicit drug use. The patient is a [facility] resident. ALLERGIES: No known drug allergies. CURRENT MEDICATIONS: Reviewed. The patient is not on any antibiotics. REVIEW OF SYSTEMS: As per HPI, all other systems reviewed are negative. PHYSICAL EXAMINATION: GENERAL: Alert, oriented gentleman, not in any distress, very thin, cachectic. VITAL SIGNS: Stable, afebrile, he has normal temperature at least now. HEENT: Anicteric. NECK: Supple. No JVP, no lymphadenopathy. LUNGS: Clear. HEART: S1, S2 regular. ABDOMEN: Has ascites present. EXTREMITIES: No edema or cyanosis. SKIN: Unremarkable. NEUROLOGIC: The patient is neurologically intact, but very weak and debilitated. LABORATORY DATA: White count is 10.2, platelets are 38,000. BUN and creatinine showed 50 and 6.2, blood glucose is fluctuating. Ascitic fluid showed no signs of infection. C. diff was negative. Blood cultures negative. Chest x-ray unremarkable for any acute changes. IMPRESSION: 1. Hypothermia, intermittent. Clearly infection has been ruled out. Could have been related to hypothyroidism and/or adrenal insufficiency that may need to be checked. 2. End-stage renal disease. 3. End-stage liver disease with ascites. RECOMMENDATIONS: I do not see the need for any antibiotics. The patient can be discharged back to [facility], although thyroid and cortisol level probably should be checked. Overall, long-term prognosis is poor. Thank you very much, Dr. Soriano, for giving me opportunity to participate in this patient's care. CARMINE CLIFTON MD DR: ROXANNA/melissa JOB#: [id number] / [id number]
[2016-08-14] MEDS ORDERED: DARBEPOETIN ALFA 60 MCG/0.3 ML DISP.SYRIN. SQ SCH (09:00)
== END 2016-08-13 14:31 | DRG 314 ==
LOC: ER 14:19 → EEVIPCON 16:58 → 2 NORTH 16:58
PROVIDERS: ADMIT Internal Medicine; ATTEND Internal Medicine
PROC: 6A550Z2 Pheresis of Platelets, Single (ICD-10-PCS; principal; 2016-08-11)
PROC: 0W9G30Z Drainage of Peritoneal Cavity with Drainage Device, Percutaneous Approach (ICD-10-PCS; 2016-08-12)
PROC: 5A1D00Z (ICD-10-PCS; 2016-08-12)
DX: I95.9 Hypotension, unspecified (principal); N18.6 End stage renal disease; E43 Unspecified severe protein-calorie malnutrition; I13.2 Hypertensive heart and chronic kidney disease with heart failure and with stage 5 chronic kidney disease, or end stage renal disease; Z68.1 Body mass index [BMI] 19.9 or less, adult; I50.32 Chronic diastolic (congestive) heart failure; R18.8 Other ascites; I42.9 Cardiomyopathy, unspecified; B19.20 Unspecified viral hepatitis C without hepatic coma; D63.1 Anemia in chronic kidney disease; D69.59 Other secondary thrombocytopenia; E03.9 Hypothyroidism, unspecified; E11.21 Type 2 diabetes mellitus with diabetic nephropathy; M10.00 Idiopathic gout, unspecified site; E11.22 Type 2 diabetes mellitus with diabetic chronic kidney disease; E78.00 Pure hypercholesterolemia, unspecified; E78.5 Hyperlipidemia, unspecified; F03.90 Unspecified dementia, unspecified severity, without behavioral disturbance, psychotic disturbance, mood disturbance, and anxiety; J44.9 Chronic obstructive pulmonary disease, unspecified; K72.90 Hepatic failure, unspecified without coma; K74.60 Unspecified cirrhosis of liver; Z79.4 Long term (current) use of insulin; Z79.899 Other long term (current) drug therapy; Z82.49 Family history of ischemic heart disease and other diseases of the circulatory system; Z99.2 Dependence on renal dialysis; Z99.3 Dependence on wheelchair
CPT/HCPCS: 36415; 49083; 71010; 80048; 80053; 80069; 82533; 82947; 83605; 84439; 84443; 85007; 85027; 85610; 85730; 86850; 86900; 86901; 87040; 87071; 87075; 87205; 87324; 89050; 93005; 94250; 94640; 94760; A4215; C1729; C1892; C1894; J1815; J2250; J2270; J3010; J7042; J7620; P9035; P9046; 99285-25

== ENCOUNTER 2016-08-22 15:34 | Emergency (ER) | payer OTHER ==
[~2016-08-22] VITALS: Ht 180.3 cm; Wt 64.4 kg
[~2016-08-22 15:34] MED LIST changes: +MIDO2.5T PO
--- NOTE | 2016-08-22 16:07 | PHYS DOC ---
Past Medical History Past Medical History: Anemia, CHF, Diabetes-Type II, High Cholesterol, Hypertension, Renal Failure, Other Additional Past Medical Histor: Cirrhosis liver,gout,cardiomyopathy,hx drug & Etoh use,ASCITES,C-DIFF Past Surgical History: Other Additional Past Surgical Histo: Rt chest dialysis shunt Alcohol Use: Sober Drug Use: Cocaine, Marijuana Adult General Chief Complaint Chief Complaint: ABNORMAL LABS HPI HPI Patient is a 56 year old male who presents with hypotension and anemia. Patient sent from [facility] ([facility]) with these complaints. CBC that was done shows hgb 7.4. Per EMS blood pressure had been 80/40. Patient says he "feels great" and denies acute complaints. He specifically denies lightheadedness or shortness of breath. Extensive medical history includes ESRD , chronic anemia, hypotension (has midodrine listed on med list PRN for BP less than 80/50). Review of Systems Review of Systems Per SNF - hypotension and anemia Per patient: Constitutional: Denies fever or chills Eyes: Denies change in visual acuity or eye pain HENT: Denies nasal congestion or sore throat Respiratory: Denies cough or shortness of breath Cardiovascular: Denies chest pain GI: Denies abdominal pain, nausea, vomiting, bloody stools or diarrhea : Denies dysuria or hematuria Musculoskeletal: Denies back pain or joint pain Integument: Denies rash or skin lesions Neurologic: Denies headache, focal weakness or sensory changes Current Medications Current Medications Current Medications Medications (Trade) Dose Ordered Sig/Madi Start Time Stop Time Status Last Admin Dose Admin Sodium Chloride (Iv Sodium Chloride 0.9% 500ml Bag) 500 ml @ 500 mls/hr 1X ONCE 08/22/16 16:30 08/22/16 17:29 DC 08/22/16 16:37 500 MLS/HR Allergies Allergies Allergies Coded Allergies Type Severity Reaction Last Updated Verified I S O L A T I O N *CONTACT* Allergy Unknown C-DIFF ISOLATION 06/23/16 Yes No Known Medication Allergies Allergy Unknown 06/24/16 Yes Physical Exam Physical Exam Constitutional: Well developed, well nourished, no acute distress, non-toxic appearance HENT: Normocephalic, atraumatic, bilateral external ears normal Eyes: EOMI, conjunctiva normal, no discharge Neck: Normal range of motion, no stridor Cardiovascular: Heart rate normal, regular rhythm, no murmur Lungs & Thorax: Bilateral breath sounds clear to auscultation Abdomen: Bowel sounds normal, soft, non-distended, no TTP, ascites Skin: Warm, dry; buttocks raw, diarrhea in brief Extremities: No obvious deformity, no edema Neurologic: Alert and oriented, no gross deficits noted Current Patient Data Vital Signs Vital Signs Date Time Temp Pulse Resp B/P Pulse Ox O2 Delivery O2 Flow Rate FiO2 08/22/16 19:11 88 11 110/79 100 Room Air Lab Values Laboratory Tests Test 08/22/16 16:45 08/22/16 17:05 White Blood Count 8.2x10^3/uL (4.0-11.0) Red Blood Count 3.14x10^6/uL (4.30-5.70) L Hemoglobin 8.5g/dL (13.0-17.5) L Hematocrit 26.9% (39.0-53.0) L Mean Corpuscular Volume 86fL (79-100) Mean Corpuscular Hemoglobin 27pg (25-35) Mean Corpuscular Hemoglobin Concent 32g/dL (31-37) Red Cell Distribution Width 19.5% (11.5-14.5) H Platelet Count 89x10^3/uL (140-400) #L Neutrophils (%) (Auto) 82% (31-73) H Lymphocytes (%) (Auto) 13% (24-48) L Monocytes (%) (Auto) 4% (0-9) Eosinophils (%) (Auto) 0% (0-3) Basophils (%) (Auto) 1% (0-3) Neutrophils # (Auto) 6.7x10^3uL (1.8-7.7) Lymphocytes # (Auto) 1.0x10^3/uL (1.0-4.8) Monocytes # (Auto) 0.3x10^3/uL (0.0-1.1) Eosinophils # (Auto) 0.0x10^3/uL (0.0-0.7) Basophils # (Auto) 0.1x10^3/uL (0.0-0.2) Toxic Granulation Mod Platelet Estimate Decreased (ADEQUATE) Polychromasia Slight Anisocytosis Slight Prothrombin Time 16.6SEC (11.7-14.0) H Prothrombin Time INR 1.4 (0.8-1.1) H Sodium Level 147mmol/L (136-145) H Potassium Level 3.5mmol/L (3.5-5.1) Chloride Level 113mmol/L (98-107) H Carbon Dioxide Level 25mmol/L (21-32) Anion Gap 9 (6-14) Blood Urea Nitrogen 21mg/dL (8-26) Creatinine 4.2mg/dL (0.7-1.3) H Estimated GFR (Cockcroft-Gault) 17.7 BUN/Creatinine Ratio 5 (6-20) L Glucose Level 100mg/dL (70-99) H Calcium Level 7.5mg/dL (8.5-10.1) L Total Bilirubin 0.4mg/dL (0.2-1.0) Aspartate Amino Transferase (AST) 37U/L (15-37) Alanine Aminotransferase (ALT) 39U/L (16-63) Alkaline Phosphatase 273U/L (46-116) H Total Protein 5.5g/dL (6.4-8.2) L Albumin 1.9g/dL (3.4-5.0) L Albumin/Globulin Ratio 0.5 (1.0-1.7) L Laboratory Tests 08/22/16 16:45 Laboratory Tests 08/22/16 17:05 EKG EKG [] Radiology/Procedures Radiology/Procedures [] Course & Med Decision Making Course & Med Decision Making Pertinent Labs and Imaging studies reviewed. (See chart for details) Patient is 48-year-old male who presents with reported hypotension and anemia. Patient says he feels great and is asymptomatic at this time. Will check CBC and CMP. Small fluid bolus ordered. Blood pressures in 90s systolically on arrival. Hemoglobin 8.5; this is in line with recent baseline, and since he is asymptomatic will not transfuse at this level. Mild hypernatremia and hyperchloremia also similar to past values. Blood pressure after fluids increased, up to 110/78 with final time I entered the room. Patient remains asymptomatic. He also has PRN midodrine for hypotension that he can receive at skilled nursing. As such, I do not believe patient would benefit from admission to the hospital. Discussed results with patient. Will discharge back to SNF. Given instructions for follow-up and return precautions. Dragon Disclaimer Dragon Disclaimer This electronic medical record was generated, in whole or in part, using a voice recognition dictation system. Departure Departure Impression: Primary Impression: Chronic anemia Additional Impression: Hypotension Disposition: 03 TRANSFER SNF Condition: STABLE Referrals: ELIZABETH COMER MD (PCP) Patient Instructions: Anemia, FAQs, Hypotension Additional Instructions: Thank you for allowing us to provide care today in the Emergency Department. Your hemoglobin level today was 8.5. This is similar to your prior values, and does not require a transfusion especially as you are not having symptoms from it. Your blood pressure has improved with some IV fluids. You have medicine available listed on your medication sheet (midodrine) as needed if your blood pressure drops again. Schedule a follow up appointment with your primary care doctor. Return promptly to the Emergency Department if you develop any new or concerning symptoms. Problem Qualifiers CARMENCITA MARTINEZ MD Aug 22, 2016 16:07
[2016-08-22] MEDS ORDERED: IV NORMAL SALINE 500ML BAG 500 ML IV ONE (16:30)
[2016-08-22 16:58] LABS: BASO # 0.1 x10^3/uL (0.0-0.2); BASO % 1 % (0-3); EOS % 0 % (0-3); HEMATOCRIT 26.9 % (39.0-53.0); HEMOGLOBIN 8.5 g/dL (13.0-17.5); LYMPH % 13 % (24-48); MEAN CORPUSCULAR HEMOGLOBIN 27 pg (25-35); MEAN CORPUSCULAR HGB CONC 32 g/dL (31-37); MEAN CORPUSCULAR VOLUME 86 fL (79-100); MONO % 4 % (0-9); NEUT % 82 % (31-73); PLATELET COUNT 89 x10^3/uL (140-400); RED BLOOD COUNT 3.14 x10^6/uL (4.30-5.70); RED CELL DISTRIBUTION WIDTH 19.5 % (11.5-14.5); WHITE BLOOD COUNT 8.2 x10^3/uL (4.0-11.0)
[2016-08-22 17:09] LABS: INR 1.4 (0.8-1.1); PROTHROMBIN TIME PATIENT 16.6 SEC (11.7-14.0)
[2016-08-22 17:25] LABS: ANISOCYTOSIS SLIGHT; PLT ESTIMATE DECREASED (ADEQUATE); POLYCHROMASIA SLIGHT; TOXIC GRANULATION MOD
[2016-08-22 17:55] LABS: CALCIUM 7.5 mg/dL (8.5-10.1); CREATININE 4.2 mg/dL (0.7-1.3); GFR 17.7; POTASSIUM 3.5 mmol/L (3.5-5.1)
[2016-08-22 18:02] LABS: ALBUMIN 1.9 g/dL (3.4-5.0); ALBUMIN/GLOBULIN RATIO 0.5 (1.0-1.7); TOTAL BILIRUBIN 0.4 mg/dL (0.2-1.0); TOTAL PROTEIN 5.5 g/dL (6.4-8.2)
[2016-08-22 19:11] VITALS: BP 110/79
== END 2016-08-22 19:52 | disposition home or self-care (01) ==
LOC: ER 15:34
DX: D64.9 Anemia, unspecified (principal); I95.9 Hypotension, unspecified; I13.2 Hypertensive heart and chronic kidney disease with heart failure and with stage 5 chronic kidney disease, or end stage renal disease; I50.9 Heart failure, unspecified; N18.6 End stage renal disease; E11.22 Type 2 diabetes mellitus with diabetic chronic kidney disease; E78.00 Pure hypercholesterolemia, unspecified; M10.9 Gout, unspecified; K74.60 Unspecified cirrhosis of liver; Z91.041 Radiographic dye allergy status; F14.10 Cocaine abuse, uncomplicated; F12.10 Cannabis abuse, uncomplicated; Z99.2 Dependence on renal dialysis
CPT/HCPCS: 36415; 80053; 85007; 85027; 85610; 86850; 86900; 86901; 87324; 96360; 99284; J7040

== ENCOUNTER 2016-08-24 16:35 | Inpatient (IN) | payer OTHER ==
[~2016-08-24] VITALS: Ht 180.3 cm; Wt 66.3 kg
[2016-08-24] MEDS ORDERED: IV NORMAL SALINE 500ML BAG 500 ML IV ONE ×3 (16:45→18:15)
[2016-08-24 17:17] LABS: HEMATOCRIT 23.4 % (39.0-53.0); HEMOGLOBIN 7.3 g/dL (13.0-17.5); MEAN CORPUSCULAR VOLUME 88 fL (79-100); RED BLOOD COUNT 2.67 x10^6/uL (4.30-5.70); WHITE BLOOD COUNT 7.4 x10^3/uL (4.0-11.0)
[2016-08-24 17:18] LABS: BASO # 0.1 x10^3/uL (0.0-0.2); BASO % 1 % (0-3); EOS % 0 % (0-3); LYMPH % 14 % (24-48); MEAN CORPUSCULAR HEMOGLOBIN 27 pg (25-35); MEAN CORPUSCULAR HGB CONC 31 g/dL (31-37); MONO % 4 % (0-9); NEUT % 81 % (31-73); PLATELET COUNT 34 x10^3/uL (140-400); RED CELL DISTRIBUTION WIDTH 19.6 % (11.5-14.5)
[2016-08-24 17:38] LABS: ALBUMIN 1.7 g/dL (3.4-5.0); ALBUMIN/GLOBULIN RATIO 0.5 (1.0-1.7); CALCIUM 7.5 mg/dL (8.5-10.1); CREATININE 3.8 mg/dL (0.7-1.3); GFR 19.9; TOTAL BILIRUBIN 0.5 mg/dL (0.2-1.0); TOTAL PROTEIN 5.3 g/dL (6.4-8.2)
[2016-08-24 17:45] LABS: POTASSIUM 2.9 mmol/L (3.5-5.1)
[2016-08-24] MEDS ORDERED: ONDANSETRON PF 4 MG/2 ML VIAL. IV PRN ×3 (18:15→18:45)
--- NOTE | 2016-08-24 18:41 | EKG ---
[facility] [address] [place] [address] Test Date: 2016-08-24 Test Time: 16:48:00 Pat Name: MARSHA HENRY Department: Room: Gender: Resource Specialist: : [id number] Requested By: FABY COMER Order Number: [id number] Reading MD: Kaiden Lou Measurements Intervals [place] Rate: 137 P: MT: QRS: 29 QRSD: 94 T: -89 QT: 328 QTc: 497 Interpretive Statements SUPRAVENTRICULAR TACHYCARDIA LOW LIMB LEAD VOLTAGE T ABNORMALITY IN ANTEROLATERAL LEADS INFEROLATERAL LEADS RI6.01 Unconfirmed report Electronically Signed On 08-31-2016 10:41:32 STOCK CONTROLLER by Kaiden Lou
--- NOTE | 2016-08-24 18:44 | PDOC1 ---
History and Physical Date of Admission Date of Admission DATE: 08/24/16 TIME: 18:37 Identification/Chief Complaint Chief Complaint low BP, ascites, cold Source Source: Caregiver, Chart review, Patient History of Present Illness History of Present Illness 56 y./o AA male who looks older than stated age, hx ESRD on HD, hx ascites and many other co morbids, was just dcd here last week for the ff: after a 6 day stay, Date of Admission: Aug 07, 2016 Discharge Date: Aug 13, 2016 Admitting Diagnosis 1. Missed HD for 1 week 2/2 to low bp, multiple electrolyte imbalance 2. Ascites, recurrent, hepatitis C, cirrhosis: need paracentesis 3. End-stage renal disease, on hemodialysis. 4. Severe thrombocytopenia secondary to cirrhosis. 5. Diabetes mellitus.: SSI 6. Diastolic heart failure, chronic, stable. 7. Hypertension, currently hypotensive, 8. Hypothermia. 9. Severe malnutrition. 10. History of substance abuse, cocaine, marijuana, and ethyl alcohol. 11. Anemia with chronic disease and cirrhosis. 12. low BP, baseline Pt apparently had low BP during HD. looking at recent admit he usually runs low. HE has marked ascites on PE, minimal subQ tissue with visible veins on his abdomen, I see that palliative was consulted that time and looks like he remained full code and active med tx. I did re introduce going palliative or even hospice to this pt, HE IS NOT READY, He wishes to do everything we can,for him "not to ". 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 He claims they would drain2-3 litres in the past Past Medical History Cardiovascular: CHF, Hyperlipidemia, Other Pulmonary: COPD CENTRAL NERVOUS SYSTEM: Dementia GI: No pertinent hx Heme/Onc: Anemia NOS Hepatobiliary: Cirrhosis, Hep A/B/C Psych: No pertinent hx Musculoskeletal: Other Rheumatologic: Gout Infectious disease: No pertinent hx Renal/: Chronic renal failure Endocrine: No pertinent hx, Hypothyroidism Past Surgical History Past Surgical History: Other Family History Family History: Hypertension Social History Smoke: No ALCOHOL: none Drugs: None Current Problem List Problem List Problems Medical Problems: (1) Hypotension Status: Acute Problems: Current Medications Current Medications Current Medications Sodium Chloride (Iv Sodium Chloride 0.9% 500ml Bag) 500 ml @ 0 mls/hr 1X ONCE IV Last administered on 08/24/16 17:16; Start 08/24/16 at 16:45; Stop at 16:49; Status DC Ondansetron HCl 4 mg 4 mg PRN Q8HRS PRN IV NAUSEA/VOMITING; Start 08/24/16 at 18:15; Stop 08/25/16 at 18:14 Sodium Chloride 500 ml @ 0 mls/hr 1X ONCE IV Last administered on 08/24/16 18 :17; Start 08/24/16 at 18:15; Stop 08/24/16 at 18:19; Status DC Sodium Chloride (Iv Sodium Chloride 0.9% 500ml Bag) 500 ml @ 0 mls/hr 1X ONCE IV ; Start 08/24/16 at 18:15; Stop 08/24/16 at 18:19; Status DC Active Scripts Active Midodrine Hcl 2.5 Mg Tablet 2.5 Mg PO PRN TID PRN Reported Imodium A-D (Loperamide HCl) 2 Mg Capsule 2 Mg PO PRN Q6HRS PRN Aranesp Syringe (Darbepoetin Aaron In Polysorbat) 60 Mcg/0.3 Ml Disp.syrin 60 Mcg SQ WEEKLY Mephyton (Phytonadione) 5 Mg Tablet 10 Mg PO DAILY Phoslo (Calcium Acetate) 667 Mg Capsule 2 Cap PO TIDWMEALS Allopurinol 100 Mg Tablet 1 Tab PO DAILY Oxycontin (Oxycodone HCl) 15 Mg Tab.er.12h 15 Mg PO BID Oxycodone Hcl 5 Mg Capsule 15 Mg PO Q3HRS PRN Oyster Shell Calcium-Vit D Tab (Calcium Carbonate/Vitamin D2) 1 Each Tablet 1 Each PO BID Acidophilus Lactobacillus (Lactobacillus Acidophilus) 1 Each Capsule 1 Each PO DAILY Glucagon Emergency Kit (Glucagon,Human Recombinant) 1 Mg Kit 1 Mg IM PRN Acetaminophen 325 Mg Tablet 650 Mg PO PRN Q4HRS PRN Sodium Bicarbonate 650 Mg Tablet 1 Tab PO BID Protonix (Pantoprazole Sodium) 40 Mg Tablet.dr 1 Tab PO BID Multi-Vitamin Daily (Multivitamin) 1 Each Tablet 1 Each PO DAILY Combivent Respimat Inhal (Ipratropium/Albuterol Sulfate) 4 Gm Aer.w.adap 1 Inh IH BID Atorvastatin Calcium 10 Mg Tablet 1 Tab PO DAILY Folic Acid 1 Mg Tablet 1 Mg PO DAILY Levothyroxine Sodium 25 Mcg Tablet 75 Mcg PO DAILYAC Allergies Allergies: Coded Allergies: I S O L A T I O N *CONTACT* (Verified Allergy, Unknown, C-DIFF ISOLATION, 06/23/16) No Known Medication Allergies (Verified Allergy, Unknown, 06/24/16) ROS Review of System limited 0- cold, does not wish to participate in extensive questioning Physical Exam General: No acute distress, Other (LOOKS OLDER THAN STATED AGE< BALD< no subq tissue) HEENT: Atraumatic Lungs: Clear to auscultation, Normal air movement Heart: S1S2, RRR, no thrills, no rubs Cardiovascular: S1, S2 Abdomen: Other (ascites, visible skin veins on abd) Male Genitals Exam: normal genitalia Rectal Exam: not examined PELVIC: Nml ext genitalia Extremities: No clubbing, No cyanosis, No edema, Normal pulses, No tenderness/ swelling Skin: No rashes, No breakdown, No significant lesion Neuro: Normal gait, Normal speech, Strength at 5/5 X4 ext, Normal tone, Sensation intact, Cranial nerves 3-12 NL, Reflexes 2+ Psych/Mental Status: Mental status NL, Mood NL Vitals Vitals Vital Signs Date Time Temp Pulse Resp B/P Pulse Ox O2 Delivery O2 Flow Rate FiO2 08/24/16 17:54 132 11 96/75 100 Room Air 08/24/16 16:40 97.6 97.6 Labs Labs Laboratory Tests Test 08/24/16 16:54 White Blood Count 7.4x10^3/uL (4.0-11.0) Red Blood Count 2.67x10^6/uL (4.30-5.70) Hemoglobin 7.3g/dL (13.0-17.5) Hematocrit 23.4% (39.0-53.0) Mean Corpuscular Volume 88fL (79-100) Mean Corpuscular Hemoglobin 27pg (25-35) Mean Corpuscular Hemoglobin Concent 31g/dL (31-37) Red Cell Distribution Width 19.6% (11.5-14.5) Platelet Count 34x10^3/uL (140-400) Neutrophils (%) (Auto) 81% (31-73) Lymphocytes (%) (Auto) 14% (24-48) Monocytes (%) (Auto) 4% (0-9) Eosinophils (%) (Auto) 0% (0-3) Basophils (%) (Auto) 1% (0-3) Neutrophils # (Auto) 6.0x10^3uL (1.8-7.7) Lymphocytes # (Auto) 1.0x10^3/uL (1.0-4.8) Monocytes # (Auto) 0.3x10^3/uL (0.0-1.1) Eosinophils # (Auto) 0.0x10^3/uL (0.0-0.7) Basophils # (Auto) 0.1x10^3/uL (0.0-0.2) Sodium Level 145mmol/L (136-145) Potassium Level 2.9mmol/L (3.5-5.1) Chloride Level 110mmol/L (98-107) Carbon Dioxide Level 24mmol/L (21-32) Anion Gap 11 (6-14) Blood Urea Nitrogen 18mg/dL (8-26) Creatinine 3.8mg/dL (0.7-1.3) Estimated GFR (Cockcroft-Gault) 19.9 BUN/Creatinine Ratio 5 (6-20) Glucose Level 229mg/dL (70-99) Lactic Acid Level 3.0mmol/L (0.4-2.0) Calcium Level 7.5mg/dL (8.5-10.1) Total Bilirubin 0.5mg/dL (0.2-1.0) Aspartate Amino Transf (AST/SGOT) 23U/L (15-37) Alanine Aminotransferase (ALT/SGPT) 33U/L (16-63) Alkaline Phosphatase 263U/L (46-116) Ammonia 39mcmol/L (11-34) Troponin I Quantitative < 0.017ng/mL (0.000-0.055) IM-Uwu-F-Type Natriuretic Peptide > 07535xk/mL (0-124) Total Protein 5.3g/dL (6.4-8.2) Albumin 1.7g/dL (3.4-5.0) Albumin/Globulin Ratio 0.5 (1.0-1.7) Lipase 38U/L (73-393) Laboratory Tests Test 08/24/16 16:54 White Blood Count 7.4x10^3/uL (4.0-11.0) Red Blood Count 2.67x10^6/uL (4.30-5.70) Hemoglobin 7.3g/dL (13.0-17.5) Hematocrit 23.4% (39.0-53.0) Mean Corpuscular Volume 88fL (79-100) Mean Corpuscular Hemoglobin 27pg (25-35) Mean Corpuscular Hemoglobin Concent 31g/dL (31-37) Red Cell Distribution Width 19.6% (11.5-14.5) Platelet Count 34x10^3/uL (140-400) Neutrophils (%) (Auto) 81% (31-73) Lymphocytes (%) (Auto) 14% (24-48) Monocytes (%) (Auto) 4% (0-9) Eosinophils (%) (Auto) 0% (0-3) Basophils (%) (Auto) 1% (0-3) Neutrophils # (Auto) 6.0x10^3uL (1.8-7.7) Lymphocytes # (Auto) 1.0x10^3/uL (1.0-4.8) Monocytes # (Auto) 0.3x10^3/uL (0.0-1.1) Eosinophils # (Auto) 0.0x10^3/uL (0.0-0.7) Basophils # (Auto) 0.1x10^3/uL (0.0-0.2) Sodium Level 145mmol/L (136-145) Potassium Level 2.9mmol/L (3.5-5.1) Chloride Level 110mmol/L (98-107) Carbon Dioxide Level 24mmol/L (21-32) Anion Gap 11 (6-14) Blood Urea Nitrogen 18mg/dL (8-26) Creatinine 3.8mg/dL (0.7-1.3) Estimated GFR (Cockcroft-Gault) 19.9 BUN/Creatinine Ratio 5 (6-20) Glucose Level 229mg/dL (70-99) Lactic Acid Level 3.0mmol/L (0.4-2.0) Calcium Level 7.5mg/dL (8.5-10.1) Total Bilirubin 0.5mg/dL (0.2-1.0) Aspartate Amino Transf (AST/SGOT) 23U/L (15-37) Alanine Aminotransferase (ALT/SGPT) 33U/L (16-63) Alkaline Phosphatase 263U/L (46-116) Ammonia 39mcmol/L (11-34) Troponin I Quantitative < 0.017ng/mL (0.000-0.055) RL-Rkh-L-Type Natriuretic Peptide > 27437va/mL (0-124) Total Protein 5.3g/dL (6.4-8.2) Albumin 1.7g/dL (3.4-5.0) Albumin/Globulin Ratio 0.5 (1.0-1.7) Lipase 38U/L (73-393) VTE Prophylaxis Ordered VTE Prophylaxis Devices: Yes VTE Pharmacological Prophylaxi: Yes Assessment/Plan Assessment/Plan 1. SIRS,. no sepsis 2. Ascites, recurrent, hepatitis C, cirrhosis: 3. End-stage renal disease, on hemodialysis. 4. Severe thrombocytopenia secondary to cirrhosis. 5. Diabetes mellitus.: SSI 6. Diastolic heart failure, chronic, stable. 7. Hypertension, currently hypotensive, 8. Hypothermia. 9. Severe malnutrition. 10. History of substance abuse, cocaine, marijuana, and ethyl alcohol. 11. Anemia with chronic disease and cirrhosis. 12. low BP, baseline 13. Hypokalemia 14. SEVERE PCM PLAN: Check renal sono IR paracentsis if platelets, hgb and iNR will allow Check seamus above labs Involve palliatve again PT/OT HD per renal Full code Resume home meds Replace K If large volume paracentesis will need albumin Get nutrition consult KARAN FERGUSON MD Aug 24, 2016 18:43
[2016-08-24] MEDS ORDERED: OXYCODONE IR 5 MG TABLET. PO PRN (18:45)
[2016-08-24] MEDS ORDERED: MAGNESIUM HYDROXIDE 2,400 MG/30 ML ORAL.SUSP. PO PRN (18:45)
[2016-08-24] MEDS ORDERED: BISACODYL 10 MG SUPP.RECT PR PRN (18:45)
[2016-08-24] MEDS ORDERED: PROCHLORPERAZINE 10 MG/2 ML VIAL. IV PRN (18:45)
[2016-08-24] MEDS ORDERED: CALCIUM CARBONATE 500 MG TAB.CHEW PO PRN (18:45)
[2016-08-24] MEDS ORDERED: PROCHLORPERAZINE 25 MG SUPP.RECT. PR PRN (18:45)
[2016-08-24] MEDS ORDERED: MORPHINE SULFATE 2 MG/ML DISP.SYRIN. IV PRN (18:45)
[2016-08-24] MEDS ORDERED: MAG HYDROX/ALUMINUM HYD/SIMETH 30 ML ORAL.SUSP PO PRN (18:45)
--- NOTE | 2016-08-24 18:55 | PHYS DOC ---
Past Medical History Past Medical History: Anemia, Arthritis, CHF, Diabetes-Type II, GERD, High Cholesterol, Hypertension, Hypothyroid, Hepatitis, Renal Failure, Other Additional Past Medical Histor: Cirrhosis liver,gout,cardiomyopathy,hx drug & Etoh use,ASCITES,C-DIFF, HEPC Past Surgical History: Other Additional Past Surgical Histo: Rt chest dialysis shunt Alcohol Use: Sober Drug Use: Cocaine, Marijuana Adult General Chief Complaint Chief Complaint: HYPOTENSION HPI HPI 56-year-old male with multiple severe chronic medical conditions including cirrhosis with ascites in stage renal disease on dialysis presents from dialysis with hypotension. He had a couple of hours of dialysis and then became hypotensive and was sent here for further evaluation. Patient denies any pain he denies fever chills sweats nausea vomiting diarrhea. He does state that his abdomen is slightly more distended than usual. [] Review of Systems Review of Systems Constitutional: Denies fever or chills [] Eyes: Denies change in visual acuity, redness, or eye pain [] HENT: Denies nasal congestion or sore throat [] Respiratory: Denies cough or shortness of breath [] Cardiovascular: No additional information not addressed in HPI [] GI: Denies abdominal pain, nausea, vomiting, bloody stools or diarrhea [] : Denies dysuria or hematuria [] Musculoskeletal: Denies back pain or joint pain [] Integument: Denies rash or skin lesions [] Neurologic: Denies headache, focal weakness or sensory changes [] Endocrine: Denies polyuria or polydipsia [] Current Medications Current Medications Current Medications Medications (Trade) Dose Ordered Sig/Madi Start Time Stop Time Status Last Admin Dose Admin Al Hydrox/Mg Hydrox/Simethicone (Mylanta Plus Xs) 30 ml PRN Q3HRS PRN 08/24/16 18:45 UNV Bisacodyl (Dulcolax Supp) 10 mg PRN DAILY PRN 08/24/16 18:45 UNV Calcium Carbonate/ Glycine (Tums) 500 mg PRN Q3HRS PRN 08/24/16 18:45 UNV Docusate Sodium (Colace) 100 mg BID 08/24/16 21:00 UNV Magnesium Hydroxide (Milk Of Magnesia) 2,400 mg PRN Q12HR PRN 08/24/16 18:45 UNV Morphine Sulfate 1 mg PRN Q1HR PRN 08/24/16 18:45 UNV Ondansetron HCl (Zofran) 4 mg PRN Q6HRS PRN 08/24/16 18:45 UNV Ondansetron HCl 4 mg 4 mg PRN Q8HRS PRN 08/24/16 18:15 08/24/16 18:48 DC Oxycodone HCl (Roxicodone) 5 mg PRN Q4HRS PRN 08/24/16 18:45 UNV Potassium Chloride (Klor-Con) 40 meq 1X ONCE 08/24/16 18:45 08/24/16 18:46 UNV Prochlorperazine (Compazine) 25 mg PRN Q12HR PRN 08/24/16 18:45 UNV Prochlorperazine Edisylate (Compazine) 10 mg PRN Q6HRS PRN 08/24/16 18:45 UNV Sodium Chloride (Iv Sodium Chloride 0.9% 500ml Bag) 500 ml @ 0 mls/hr 1X ONCE 08/24/16 18:15 08/24/16 18:19 DC Zolpidem Tartrate (Ambien) 2.5 mg PRN QHS PRN 08/24/16 18:45 UNV Allergies Allergies Allergies Coded Allergies Type Severity Reaction Last Updated Verified I S O L A T I O N *CONTACT* Allergy Unknown C-DIFF ISOLATION 06/23/16 Yes No Known Medication Allergies Allergy Unknown 06/24/16 Yes Physical Exam Physical Exam Constitutional: Frail cachectic acute on chronically ill] HENT: Sunken face, Normocephalic, atraumatic, bilateral external ears normal, oropharynx moist, no oral exudates, nose normal. [] Eyes: PERRLA, EOMI, conjunctiva normal, no discharge. [] Neck: Normal range of motion, no tenderness, supple, no stridor. [] Cardiovascular:Heart rate regular rhythm, no murmur [] Lungs & Thorax: Bilateral breath sounds clear to auscultation [] Abdomen: Distended abdomen with a positive fluid wave Skin: Warm, dry, no erythema, no rash. [] Back: No tenderness, no CVA tenderness. [] Extremities: No tenderness, no cyanosis, no clubbing, ROM intact, no edema. [] Neurologic: Alert and oriented X 3, normal motor function, normal sensory function, no focal deficits noted. [] Psychologic: Depressed affect [] Current Patient Data Vital Signs Vital Signs Date Time Temp Pulse Resp B/P Pulse Ox O2 Delivery O2 Flow Rate FiO2 08/24/16 17:54 132 11 96/75 100 Room Air 08/24/16 16:40 97.6 97.6 Lab Values Laboratory Tests Test 08/24/16 16:54 White Blood Count 7.4x10^3/uL (4.0-11.0) Red Blood Count 2.67x10^6/uL (4.30-5.70) L Hemoglobin 7.3g/dL (13.0-17.5) L Hematocrit 23.4% (39.0-53.0) L Mean Corpuscular Volume 88fL (79-100) Mean Corpuscular Hemoglobin 27pg (25-35) Mean Corpuscular Hemoglobin Concent 31g/dL (31-37) Red Cell Distribution Width 19.6% (11.5-14.5) H Platelet Count 34x10^3/uL (140-400) L Neutrophils (%) (Auto) 81% (31-73) H Lymphocytes (%) (Auto) 14% (24-48) L Monocytes (%) (Auto) 4% (0-9) Eosinophils (%) (Auto) 0% (0-3) Basophils (%) (Auto) 1% (0-3) Neutrophils # (Auto) 6.0x10^3uL (1.8-7.7) Lymphocytes # (Auto) 1.0x10^3/uL (1.0-4.8) Monocytes # (Auto) 0.3x10^3/uL (0.0-1.1) Eosinophils # (Auto) 0.0x10^3/uL (0.0-0.7) Basophils # (Auto) 0.1x10^3/uL (0.0-0.2) Sodium Level 145mmol/L (136-145) Potassium Level 2.9mmol/L (3.5-5.1) *L Chloride Level 110mmol/L (98-107) H Carbon Dioxide Level 24mmol/L (21-32) Anion Gap 11 (6-14) Blood Urea Nitrogen 18mg/dL (8-26) Creatinine 3.8mg/dL (0.7-1.3) H Estimated GFR (Cockcroft-Gault) 19.9 BUN/Creatinine Ratio 5 (6-20) L Glucose Level 229mg/dL (70-99) H Lactic Acid Level 3.0mmol/L (0.4-2.0) H Calcium Level 7.5mg/dL (8.5-10.1) L Total Bilirubin 0.5mg/dL (0.2-1.0) Aspartate Amino Transferase (AST) 23U/L (15-37) Alanine Aminotransferase (ALT) 33U/L (16-63) Alkaline Phosphatase 263U/L (46-116) H Ammonia 39mcmol/L (11-34) H Troponin I Quantitative < 0.017ng/mL (0.000-0.055) WC-Csa-E-Type Natriuretic Peptide > 09585ra/mL (0-124) H Total Protein 5.3g/dL (6.4-8.2) L Albumin 1.7g/dL (3.4-5.0) L Albumin/Globulin Ratio 0.5 (1.0-1.7) L Lipase 38U/L (73-393) L Laboratory Tests 08/24/16 16:54 Laboratory Tests 08/24/16 16:54 EKG EKG [EKG: Atrial fibrillation rate of [address]-T changes] Radiology/Procedures Radiology/Procedures [] Course & Med Decision Making Course & Med Decision Making Pertinent Labs and Imaging studies reviewed. (See chart for details) [ED course: 56-year-old male who appears very ill presents with blood pressure in the 50s and a heart rate in the 130s. Patient did just come from dialysis. During his stay in the emergency department he was given 1 L of normal saline which brought his heart rate down only mildly but his blood pressure did increase into the 100 systolic range. I spoke with Dr. Harris who agreed to accept the patient for admission to the intensive care unit. We will consult GI as well as nephrology.] CRITICAL CARE time was 30 minutes - time exclusive of any procedures performed. Care included medical management, x-ray/lab interpretation, discussions with the patient and their family as well as appropriate medical consultants. Dragon Disclaimer Dragon Disclaimer This electronic medical record was generated, in whole or in part, using a voice recognition dictation system. Departure Departure Impression: Primary Impression: Hypotension Additional Impressions: End stage liver disease Rapid atrial fibrillation Disposition: 09 ADMITTED INPATIENT Admitting Physician: Izzy Harris Condition: CRITICAL Referrals: ELIZABETH COMER MD (PCP) Problem Qualifiers Primary Impression: Hypotension Hypotension type: hemodialysis-associated hypotension Qualified Code: I95.3 - Hypotension of hemodialysis FABY COMER DO Aug 24, 2016 18:55
[2016-08-24] MEDS ORDERED: POTASSIUM CHLORIDE 20 MEQ TABLET.ER. PO ONE (19:00)
[2016-08-24 19:03] LABS: INR 1.5 (0.8-1.1); PROTHROMBIN TIME PATIENT 17.4 SEC (11.7-14.0)
--- NOTE | 2016-08-24 20:57 | RAD ---
PROCEDURE Limited ultrasound of the abdomen 08/24/2016 HISTORY History of cirrhosis. Ascites. TECHNIQUE A real-time ultrasound examination of all 4 quadrants of the abdomen was performed. Multiple images were obtained. FINDINGS A moderate to severe amount of ascites is seen throughout the abdomen. IMPRESSION Moderate to severe ascites. Electronically signed by: Kimo Zepeda MD (Aug 24, 2016 20:55:58)
[2016-08-24 21:00] VITALS: BP 84/67
[2016-08-24] MEDS: DOCUSATE SODIUM 100 MG CAPSULE PO SCH (21:00)
[2016-08-24 21:15] VITALS: BP 94/77
[2016-08-24 21:30] VITALS: BP 83/69
[2016-08-24 21:45] VITALS: BP 83/75
[2016-08-24 22:00] VITALS: BP 87/72
[2016-08-24 23:00] VITALS: BP 101/79
[2016-08-25] VITALS (20 sets, daily range): BP systolic 80–111; BP diastolic 56–84
[2016-08-25] MEDS ORDERED: INSU100I17 SQ (06:35)
[2016-08-25] MEDS ORDERED: IPRA3AMP NEB (06:35)
[2016-08-25] MEDS ORDERED: METR500T PO (06:35)
[2016-08-25] MEDS ORDERED: TAMS0.4C97 PO (06:35)
[2016-08-25 07:02] LABS: BASO # 0.1 x10^3/uL (0.0-0.2); BASO % 1 % (0-3); EOS % 1 % (0-3); HEMATOCRIT 22.3 % (39.0-53.0); LYMPH # 1.2 x10^3/uL (1.0-4.8); LYMPH % 22 % (24-48); MEAN CORPUSCULAR HEMOGLOBIN 28 pg (25-35); MEAN CORPUSCULAR HGB CONC 31 g/dL (31-37); MEAN CORPUSCULAR VOLUME 88 fL (79-100); MONO % 5 % (0-9); NEUT % 71 % (31-73); PLATELET COUNT 34 x10^3/uL (140-400); RED BLOOD COUNT 2.53 x10^6/uL (4.30-5.70); RED CELL DISTRIBUTION WIDTH 20.2 % (11.5-14.5); WHITE BLOOD COUNT 5.5 x10^3/uL (4.0-11.0)
[2016-08-25 07:05] LABS: CALCIUM 7.4 mg/dL (8.5-10.1); CREATININE 4.4 mg/dL (0.7-1.3); GFR 16.8; POTASSIUM 3.6 mmol/L (3.5-5.1)
[2016-08-25 07:11] LABS: ALBUMIN 1.6 g/dL (3.4-5.0); ALBUMIN/GLOBULIN RATIO 0.5 (1.0-1.7); TOTAL BILIRUBIN 0.4 mg/dL (0.2-1.0); TOTAL PROTEIN 4.8 g/dL (6.4-8.2)
--- NOTE | 2016-08-25 08:26 | RAD ---
Portable chest, 08/24/2016: History: Shortness of breath Comparison is made to a study from 08/07/2016. The patient is rotated to the right. The depth of inspiration is suboptimal. A right jugular dialysis type catheter extends into the superior aspect of the right atrium. The heart size and pulmonary vascularity are normal. There are moderate streaky basilar opacities, left greater than right, compatible with atelectasis and/or scarring. There is no evidence of pleural fluid or pneumothorax. IMPRESSION: Suboptimal inspiration with moderate streaky bibasilar atelectasis.
[2016-08-25] MEDS: DOCUSATE SODIUM 100 MG CAPSULE PO SCH ×2 (09:00→19:31)
--- NOTE | 2016-08-25 09:22 | PDOC2 ---
GI CONSULT Reason For Consult: Cirrhosis HPI: HPI: 56 y/o AA male known to GI service from previous admissions. H/o cirrhosis 2/2 Hep C and alcohol w/ ascites and previous paracentesis (last 08/11/16 w/ removal of 10,500cc). On this occasion, admitted for hypotension during dialysis. GI asked to see re: cirrhosis. Says abd feels distended like it's time for paracentesis again. Can be painful. Having diarrhea/loose stools which is not unusual for him. Denies bleeding. Does have h/o C Diff. Reports EGD and colonoscopy at [facility]; records have been requested a few times but nothing received. PMH: PMH: ESRD on dialysis, HTN, DM, COPD, hyperparathyroidism, pancreatitis, C Diff, CHF , Hep C, cirrhosis, cardiomyopathy FH: Family History: No pertinent hx Social History: Smoke: No ALCOHOL: none Drugs: None ROS: Difficult to obtain, pt standoffish. GEN: Denies fevers CV: Denies chest pain RESP: Denies shortness of air GI: Per HPI VItals: Vitals: Vital Signs Date Time Temp Pulse Resp B/P Pulse Ox O2 Delivery O2 Flow Rate FiO2 08/25/16 07:00 130 16 90/71 98 Room Air 08/25/16 04:00 97.2 97.2 Labs: Labs: Laboratory Tests Test 08/24/16 16:54 08/24/16 21:16 08/25/16 00:42 08/25/16 06:20 White Blood Count 7.4x10^3/uL (4.0-11.0) 5.5x10^3/uL (4.0-11.0) Red Blood Count 2.67x10^6/uL (4.30-5.70) 2.53x10^6/uL (4.30-5.70) Hemoglobin 7.3g/dL (13.0-17.5) 7.0g/dL (13.0-17.5) Hematocrit 23.4% (39.0-53.0) 22.3% (39.0-53.0) Mean Corpuscular Volume 88fL (79-100) 88fL (79-100) Mean Corpuscular Hemoglobin 27pg (25-35) 28pg (25-35) Mean Corpuscular Hemoglobin Concent 31g/dL (31-37) 31g/dL (31-37) Red Cell Distribution Width 19.6% (11.5-14.5) 20.2% (11.5-14.5) Platelet Count 34x10^3/uL (140-400) 34x10^3/uL (140-400) Neutrophils (%) (Auto) 81% (31-73) 71% (31-73) Lymphocytes (%) (Auto) 14% (24-48) 22% (24-48) Monocytes (%) (Auto) 4% (0-9) 5% (0-9) Eosinophils (%) (Auto) 0% (0-3) 1% (0-3) Basophils (%) (Auto) 1% (0-3) 1% (0-3) Neutrophils # (Auto) 6.0x10^3uL (1.8-7.7) 3.9x10^3uL (1.8-7.7) Lymphocytes # (Auto) 1.0x10^3/uL (1.0-4.8) 1.2x10^3/uL (1.0-4.8) Monocytes # (Auto) 0.3x10^3/uL (0.0-1.1) 0.3x10^3/uL (0.0-1.1) Eosinophils # (Auto) 0.0x10^3/uL (0.0-0.7) 0.0x10^3/uL (0.0-0.7) Basophils # (Auto) 0.1x10^3/uL (0.0-0.2) 0.1x10^3/uL (0.0-0.2) Prothrombin Time 17.4SEC (11.7-14.0) Prothromb Time International Ratio 1.5 (0.8-1.1) Sodium Level 145mmol/L (136-145) 146mmol/L (136-145) Potassium Level 2.9mmol/L (3.5-5.1) 3.6mmol/L (3.5-5.1) Chloride Level 110mmol/L (98-107) 113mmol/L (98-107) Carbon Dioxide Level 24mmol/L (21-32) 22mmol/L (21-32) Anion Gap 11 (6-14) 11 (6-14) Blood Urea Nitrogen 18mg/dL (8-26) 22mg/dL (8-26) Creatinine 3.8mg/dL (0.7-1.3) 4.4mg/dL (0.7-1.3) Estimated GFR (Cockcroft-Gault) 19.9 16.8 BUN/Creatinine Ratio 5 (6-20) 5 (6-20) Glucose Level 229mg/dL (70-99) 88mg/dL (70-99) Lactic Acid Level 3.0mmol/L (0.4-2.0) 1.6mmol/L (0.4-2.0) Calcium Level 7.5mg/dL (8.5-10.1) 7.4mg/dL (8.5-10.1) Total Bilirubin 0.5mg/dL (0.2-1.0) 0.4mg/dL (0.2-1.0) Aspartate Amino Transf (AST/SGOT) 23U/L (15-37) 22U/L (15-37) Alanine Aminotransferase (ALT/SGPT) 33U/L (16-63) 28U/L (16-63) Alkaline Phosphatase 263U/L (46-116) 243U/L (46-116) Ammonia 39mcmol/L (11-34) Troponin I Quantitative < 0.017ng/mL (0.000-0.055) 0.017ng/mL (0.000-0.055) < 0.017ng/mL (0.000-0.055) KF-Msy-X-Type Natriuretic Peptide > 49426tx/mL (0-124) Total Protein 5.3g/dL (6.4-8.2) 4.8g/dL (6.4-8.2) Albumin 1.7g/dL (3.4-5.0) 1.6g/dL (3.4-5.0) Albumin/Globulin Ratio 0.5 (1.0-1.7) 0.5 (1.0-1.7) Lipase 38U/L (73-393) Allergies: Coded Allergies: I S O L A T I O N *CONTACT* (Verified Allergy, Unknown, C-DIFF ISOLATION, 06/23/16) No Known Medication Allergies (Verified Allergy, Unknown, 06/24/16) Medications: Current Medications Medications (Trade) Dose Ordered Sig/Madi Route PRN Reason Start Time Stop Time Status Last Admin Dose Admin Sodium Chloride 500 ml @ 0 mls/hr 1X ONCE IV 08/24/16 16:45 08/24/16 16:49 DC 08/24/16 17:16 Sodium Chloride (Iv Sodium Chloride 0.9% 500ml Bag) 500 ml @ 0 mls/hr 1X ONCE IV 08/24/16 18:15 08/24/16 18:19 DC 08/24/16 18:17 Potassium Chloride (Klor-Con) 40 meq 1X ONCE PO 08/24/16 19:00 08/24/16 19:01 DC 08/24/16 19:00 Imaging: Imaging: Abd US 08/24/16 IMPRESSION Moderate to severe ascites. CXR 08/24/16 IMPRESSION: Suboptimal inspiration with moderate streaky bibasilar atelectasis. PE: GEN: NAD, RNs cleaning pt after BM HEENT: Atraumatic LUNGS: no accessory muscle use ABD: BS+, distended, tender SKIN: No rashes NEURO/PSYCH: A & O 3, annoyed A/P: A/P: Cirrhosis, ascites -Hep C, alcohol -requires frequent paracentesis, last 08/11/16 (10.5L removed) ESRD on HD Anemia, thrombocytopenia H/o C Diff -- Will ask for another paracentesis and check C Diff. Other per Dr. Park. SARAVANAN KEARNEY Aug 25, 2016 09:22
[2016-08-25] MEDS ORDERED: LOPERAMIDE 2 MG CAPSULE PO PRN (09:30)
[2016-08-25] MEDS ORDERED: DEXTROSE 50% 25 GM / 50ML DISP.SYRIN. IV PRN (09:30)
[2016-08-25] MEDS ORDERED: MIDODRINE 2.5 MG TABLET PO PRN (09:30)
[2016-08-25] MEDS ORDERED: OXYCODONE IR 5 MG TABLET. PO PRN (09:30)
[2016-08-25] MEDS ORDERED: ACETAMINOPHEN 325 MG TABLET. PO PRN (09:30)
--- NOTE | 2016-08-25 10:42 | PDOC2 ---
CONSULT Date of Consult Date of Consult DATE: 08/25/16 TIME: 10:38 Reason for Consult Reason for Consult: ESRD Referring Physician Referring Physician: PHYLLIS Identification/Chief Complaint Chief Complaint LOW BP AND WEAKNESS Source Source: Chart review, Patient History of Present Illness Reason for Visit: THIS IS A 56 YR OLD ESRD PT ADMITTED WITH LOW BP AND WEAKNESS. HE IS ALSO SLIGHTLY SOB. HX NOTABLE FOR ESRD AND HD ON MWF. ALSO NOTABLE FOR ETOH AND HEP C RELATED LIVER CIRRHOSIS WITH ASCITES REQUIRING PARACENTESIS. STATES THAT HIS ABD IS FULL AGAIN. HAD A TAP ABOUT 2 WEEKS AGO. LABS ARE C/W ESRD Past Medical History Cardiovascular: CHF, Hyperlipidemia, Other Pulmonary: COPD CENTRAL NERVOUS SYSTEM: Dementia GI: No pertinent hx Heme/Onc: Anemia NOS Hepatobiliary: Cirrhosis, Hep A/B/C Psych: No pertinent hx Musculoskeletal: Other Rheumatologic: Gout Infectious disease: No pertinent hx Renal/: Chronic renal failure Endocrine: No pertinent hx, Hypothyroidism, Hyperparathyroidism Past Surgical History Past Surgical History: Other Family History Family History: Hypertension Social History No ALCOHOL: none Drugs: None Lives: [facility] Current Problem List Problem List Problems Medical Problems: (1) Cirrhosis Status: Acute (2) End stage liver disease Status: Acute (3) Hypotension Status: Acute (4) Rapid atrial fibrillation Status: Acute Current Medications Current Medications Current Medications Sodium Chloride (Iv Sodium Chloride 0.9% 500ml Bag) 500 ml @ 0 mls/hr 1X ONCE IV Last administered on 08/24/16 17:16; Start 08/24/16 at 16:45; Stop at 16:49; Status DC Ondansetron HCl 4 mg 4 mg PRN Q8HRS PRN IV NAUSEA/VOMITING; Start 08/24/16 at 18:15; Stop 08/24/16 at 18:48; Status DC Sodium Chloride 500 ml @ 0 mls/hr 1X ONCE IV Last administered on 08/24/16 18 :17; Start 08/24/16 at 18:15; Stop 08/24/16 at 18:19; Status DC Sodium Chloride (Iv Sodium Chloride 0.9% 500ml Bag) 500 ml @ 0 mls/hr 1X ONCE IV ; Start 08/24/16 at 18:15; Stop 08/24/16 at 18:19; Status DC Ondansetron HCl (Zofran) 4 mg PRN Q6HRS PRN IV NAUSEA/VOMITING; Start 08/24/16 at 18:44 Ondansetron HCl (Zofran) 4 mg PRN Q6HRS PRN IV NAUSEA/VOMITING; Start 08/24/16 at 18:45; Status UNV Prochlorperazine Edisylate (Compazine) 10 mg PRN Q6HRS PRN IV NAUSEA/VOMITING; Start 08/24/16 at 18:45 Prochlorperazine (Compazine) 25 mg PRN Q12HR PRN WA NAUSEA/VOMITING; Start at 18:45 Al Hydrox/Mg Hydrox/Simethicone (Mylanta Plus Xs) 30 ml PRN Q3HRS PRN PO HEARTBURN / GAS; Start 08/24/16 at 18:45 Calcium Carbonate/ Glycine (Tums) 500 mg PRN Q3HRS PRN PO UPSET STOMACH; Start 08/24/16 at 18:45 Zolpidem Tartrate (Ambien) 2.5 mg PRN QHS PRN PO INSOMNIA, MAY REPEAT IN 1HR; Start 08/24/16 at 18:45 Morphine Sulfate 1 mg PRN Q1HR PRN IV PAIN; Start 08/24/16 at 18:45 Oxycodone HCl (Roxicodone) 5 mg PRN Q4HRS PRN PO MILD PAIN, 1ST CHOICE; Start 08/24/16 at 18:45 Docusate Sodium (Colace) 100 mg BID PO ; Start 08/24/16 at 21:00 Magnesium Hydroxide (Milk Of Magnesia) 2,400 mg PRN Q12HR PRN PO CONSTIPATION; Start 08/24/16 at 18:45 Bisacodyl (Dulcolax Supp) 10 mg PRN DAILY PRN WA CONSTIPATION; Start 08/24/16 at 18:45 Potassium Chloride (Klor-Con) 40 meq 1X ONCE PO Last administered on t 19:00; Start 08/24/16 at 19:00; Stop 08/24/16 at 19:01; Status DC Acetaminophen (Tylenol) 650 mg PRN Q4HRS PRN PO PAIN; Start 08/25/16 at 09:30 Allopurinol (Zyloprim) 100 mg DAILY PO ; Start 08/25/16 at 10:00 Atorvastatin Calcium (Lipitor) 10 mg QHS PO ; Start 08/25/16 at 21:00 Calcium Acetate (Phoslo) 1,334 mg TIDWMEALS PO ; Start 08/25/16 at 12:00 Folic Acid (Folic Acid) 1 mg DAILY PO ; Start 08/25/16 at 10:00 Albuterol/ Ipratropium (Duoneb) 3 ml Q8HRS NEB ; Start 08/25/16 at 14:00 Levothyroxine Sodium (Synthroid) 75 mcg DAILYAC PO ; Start 08/25/16 at 10:00 Loperamide HCl (Imodium) 2 mg PRN Q6HRS PRN PO DIARRHEA; Start 08/25/16 at 09: 30 Midodrine (Proamatine) 2.5 mg PRN TID PRN PO BLOOD PRESSURE; Start 08/25/16 at 09:30 Oxycodone HCl (Oxycontin) 15 mg BID PO ; Start 08/25/16 at 10:00 Pantoprazole Sodium (Protonix) 40 mg BIDAC PO ; Start 08/25/16 at 10:00 Phytonadione (Mephyton) 10 mg DAILY PO ; Start 08/25/16 at 10:00 Sodium Bicarbonate (Sodium Bicarbonate) 1,300 mg BID PO ; Start 08/25/16 at 10: 00 Calcium/Vitamin D (Oscal D 500mg/ 200uts) 1 tab BIDWMEALS PO ; Start 08/25/16 at 10:00 Non-Formulary Medication 1 inh BID IH ; Start 08/25/16 at 21:00; Status UNV Lactobacillus Acidophilus (Bacid, Lou-Bid) 1 tab DAILY PO ; Start 08/25/16 at 10:00 Multivitamins/ Calcium (Thera M Plus) 1 tab DAILY PO ; Start 08/25/16 at 10:00 Oxycodone HCl (Roxicodone) 15 mg PRN Q3HRS PRN PO PAIN; Start 08/25/16 at 09:30 Insulin Aspart (Novolog) 0-9 UNITS TIDWMEALS SQ ; Start 08/25/16 at 12:00 Dextrose 12.5 gm PRN Q15MIN PRN IV SEE COMMENTS; Start 08/25/16 at 09:30 Active Scripts Active Midodrine Hcl 2.5 Mg Tablet 2.5 Mg PO PRN TID PRN Reported Novolog Flexpen (Insulin Aspart) 100 Unit/1 Ml Insuln.pen 3 Unit SQ TID Flomax (Tamsulosin Hcl) 0.4 Mg Cap.er.24h 0.4 Mg PO DAILY Flagyl (Metronidazole) 500 Mg Tablet 500 Mg PO TID 10 Days Duoneb 0.5-3(2.5) Mg/3 Ml (Albuterol/Ipratropium) 3 Ml Ampul.neb 3 Ml NEB Q8HRS Imodium A-D (Loperamide HCl) 2 Mg Capsule 2 Mg PO PRN Q6HRS PRN Mephyton (Phytonadione) 5 Mg Tablet 10 Mg PO DAILY Phoslo (Calcium Acetate) 667 Mg Capsule 2 Cap PO TIDWMEALS Allopurinol 100 Mg Tablet 1 Tab PO DAILY Oxycontin (Oxycodone HCl) 15 Mg Tab.er.12h 15 Mg PO BID Oxycodone Hcl 5 Mg Capsule 15 Mg PO Q3HRS PRN Oyster Shell Calcium-Vit D Tab (Calcium Carbonate/Vitamin D2) 1 Each Tablet 1 Each PO BID Acidophilus Lactobacillus (Lactobacillus Acidophilus) 1 Each Capsule 1 Each PO DAILY Glucagon Emergency Kit (Glucagon,Human Recombinant) 1 Mg Kit 1 Mg IM PRN Acetaminophen 325 Mg Tablet 650 Mg PO PRN Q4HRS PRN Sodium Bicarbonate 650 Mg Tablet 1 Tab PO BID Protonix (Pantoprazole Sodium) 40 Mg Tablet.dr 1 Tab PO BID Multi-Vitamin Daily (Multivitamin) 1 Each Tablet 1 Each PO DAILY Combivent Respimat Inhal (Ipratropium/Albuterol Sulfate) 4 Gm Aer.w.adap 1 Inh IH BID Atorvastatin Calcium 10 Mg Tablet 1 Tab PO DAILY Folic Acid 1 Mg Tablet 1 Mg PO DAILY Levothyroxine Sodium 25 Mcg Tablet 75 Mcg PO DAILYAC Allergies Allergies: Coded Allergies: I S O L A T I O N *CONTACT* (Verified Allergy, Unknown, C-DIFF ISOLATION, 06/23/16) No Known Medication Allergies (Verified Allergy, Unknown, 06/24/16) ROS General: YES: Appetite, Fatigue, Malaise PSYCHOLOGICAL ROS: YES: Anxiety, Depression Eyes: Yes Decreased vision HEENT: YES: Heacaches Respiratory: YES: Cough, Shortness of breath Gastrointestinal: Yes Nausea, Yes Other (ABD DISTENTION) Genitourinary: YES Other (ANURIA) Musculoskeletal: Yes Muscular Weakness Neurological: Yes Weakness Skin: Yes Dry Skin Physical Exam General: Alert, Oriented X3, Cooperative, No acute distress HEENT: Atraumatic, PERRLA Lungs: Other (DECREASED AT BASES) Abdomen: Normal bowel sounds, Soft Extremities: No clubbing Neuro: Normal speech, Cranial nerves 3-12 NL Psych/Mental Status: Mental status NL, Mood NL MUSCULOSKELETAL: No deformity, No swelling Vitals VITALS Vital Signs Date Time Temp Pulse Resp B/P Pulse Ox O2 Delivery O2 Flow Rate FiO2 08/25/16 10:00 128 12 84/72 99 Room Air 08/25/16 08:00 97.6 97.6 Labs Labs Laboratory Tests Test 08/24/16 16:54 08/24/16 21:16 08/25/16 00:42 08/25/16 06:20 White Blood Count 7.4x10^3/uL (4.0-11.0) 5.5x10^3/uL (4.0-11.0) Red Blood Count 2.67x10^6/uL (4.30-5.70) 2.53x10^6/uL (4.30-5.70) Hemoglobin 7.3g/dL (13.0-17.5) 7.0g/dL (13.0-17.5) Hematocrit 23.4% (39.0-53.0) 22.3% (39.0-53.0) Mean Corpuscular Volume 88fL (79-100) 88fL (79-100) Mean Corpuscular Hemoglobin 27pg (25-35) 28pg (25-35) Mean Corpuscular Hemoglobin Concent 31g/dL (31-37) 31g/dL (31-37) Red Cell Distribution Width 19.6% (11.5-14.5) 20.2% (11.5-14.5) Platelet Count 34x10^3/uL (140-400) 34x10^3/uL (140-400) Neutrophils (%) (Auto) 81% (31-73) 71% (31-73) Lymphocytes (%) (Auto) 14% (24-48) 22% (24-48) Monocytes (%) (Auto) 4% (0-9) 5% (0-9) Eosinophils (%) (Auto) 0% (0-3) 1% (0-3) Basophils (%) (Auto) 1% (0-3) 1% (0-3) Neutrophils # (Auto) 6.0x10^3uL (1.8-7.7) 3.9x10^3uL (1.8-7.7) Lymphocytes # (Auto) 1.0x10^3/uL (1.0-4.8) 1.2x10^3/uL (1.0-4.8) Monocytes # (Auto) 0.3x10^3/uL (0.0-1.1) 0.3x10^3/uL (0.0-1.1) Eosinophils # (Auto) 0.0x10^3/uL (0.0-0.7) 0.0x10^3/uL (0.0-0.7) Basophils # (Auto) 0.1x10^3/uL (0.0-0.2) 0.1x10^3/uL (0.0-0.2) Prothrombin Time 17.4SEC (11.7-14.0) Prothromb Time International Ratio 1.5 (0.8-1.1) Sodium Level 145mmol/L (136-145) 146mmol/L (136-145) Potassium Level 2.9mmol/L (3.5-5.1) 3.6mmol/L (3.5-5.1) Chloride Level 110mmol/L (98-107) 113mmol/L (98-107) Carbon Dioxide Level 24mmol/L (21-32) 22mmol/L (21-32) Anion Gap 11 (6-14) 11 (6-14) Blood Urea Nitrogen 18mg/dL (8-26) 22mg/dL (8-26) Creatinine 3.8mg/dL (0.7-1.3) 4.4mg/dL (0.7-1.3) Estimated GFR (Cockcroft-Gault) 19.9 16.8 BUN/Creatinine Ratio 5 (6-20) 5 (6-20) Glucose Level 229mg/dL (70-99) 88mg/dL (70-99) Lactic Acid Level 3.0mmol/L (0.4-2.0) 1.6mmol/L (0.4-2.0) Calcium Level 7.5mg/dL (8.5-10.1) 7.4mg/dL (8.5-10.1) Total Bilirubin 0.5mg/dL (0.2-1.0) 0.4mg/dL (0.2-1.0) Aspartate Amino Transf (AST/SGOT) 23U/L (15-37) 22U/L (15-37) Alanine Aminotransferase (ALT/SGPT) 33U/L (16-63) 28U/L (16-63) Alkaline Phosphatase 263U/L (46-116) 243U/L (46-116) Ammonia 39mcmol/L (11-34) Troponin I Quantitative < 0.017ng/mL (0.000-0.055) 0.017ng/mL (0.000-0.055) < 0.017ng/mL (0.000-0.055) SJ-Hwb-I-Type Natriuretic Peptide > 29203ce/mL (0-124) Total Protein 5.3g/dL (6.4-8.2) 4.8g/dL (6.4-8.2) Albumin 1.7g/dL (3.4-5.0) 1.6g/dL (3.4-5.0) Albumin/Globulin Ratio 0.5 (1.0-1.7) 0.5 (1.0-1.7) Lipase 38U/L (73-393) Laboratory Tests Test 08/24/16 16:54 08/24/16 21:16 08/25/16 00:42 08/25/16 06:20 White Blood Count 7.4x10^3/uL (4.0-11.0) 5.5x10^3/uL (4.0-11.0) Red Blood Count 2.67x10^6/uL (4.30-5.70) 2.53x10^6/uL (4.30-5.70) Hemoglobin 7.3g/dL (13.0-17.5) 7.0g/dL (13.0-17.5) Hematocrit 23.4% (39.0-53.0) 22.3% (39.0-53.0) Mean Corpuscular Volume 88fL (79-100) 88fL (79-100) Mean Corpuscular Hemoglobin 27pg (25-35) 28pg (25-35) Mean Corpuscular Hemoglobin Concent 31g/dL (31-37) 31g/dL (31-37) Red Cell Distribution Width 19.6% (11.5-14.5) 20.2% (11.5-14.5) Platelet Count 34x10^3/uL (140-400) 34x10^3/uL (140-400) Neutrophils (%) (Auto) 81% (31-73) 71% (31-73) Lymphocytes (%) (Auto) 14% (24-48) 22% (24-48) Monocytes (%) (Auto) 4% (0-9) 5% (0-9) Eosinophils (%) (Auto) 0% (0-3) 1% (0-3) Basophils (%) (Auto) 1% (0-3) 1% (0-3) Neutrophils # (Auto) 6.0x10^3uL (1.8-7.7) 3.9x10^3uL (1.8-7.7) Lymphocytes # (Auto) 1.0x10^3/uL (1.0-4.8) 1.2x10^3/uL (1.0-4.8) Monocytes # (Auto) 0.3x10^3/uL (0.0-1.1) 0.3x10^3/uL (0.0-1.1) Eosinophils # (Auto) 0.0x10^3/uL (0.0-0.7) 0.0x10^3/uL (0.0-0.7) Basophils # (Auto) 0.1x10^3/uL (0.0-0.2) 0.1x10^3/uL (0.0-0.2) Prothrombin Time 17.4SEC (11.7-14.0) Prothromb Time International Ratio 1.5 (0.8-1.1) Sodium Level 145mmol/L (136-145) 146mmol/L (136-145) Potassium Level 2.9mmol/L (3.5-5.1) 3.6mmol/L (3.5-5.1) Chloride Level 110mmol/L (98-107) 113mmol/L (98-107) Carbon Dioxide Level 24mmol/L (21-32) 22mmol/L (21-32) Anion Gap 11 (6-14) 11 (6-14) Blood Urea Nitrogen 18mg/dL (8-26) 22mg/dL (8-26) Creatinine 3.8mg/dL (0.7-1.3) 4.4mg/dL (0.7-1.3) Estimated GFR (Cockcroft-Gault) 19.9 16.8 BUN/Creatinine Ratio 5 (6-20) 5 (6-20) Glucose Level 229mg/dL (70-99) 88mg/dL (70-99) Lactic Acid Level 3.0mmol/L (0.4-2.0) 1.6mmol/L (0.4-2.0) Calcium Level 7.5mg/dL (8.5-10.1) 7.4mg/dL (8.5-10.1) Total Bilirubin 0.5mg/dL (0.2-1.0) 0.4mg/dL (0.2-1.0) Aspartate Amino Transf (AST/SGOT) 23U/L (15-37) 22U/L (15-37) Alanine Aminotransferase (ALT/SGPT) 33U/L (16-63) 28U/L (16-63) Alkaline Phosphatase 263U/L (46-116) 243U/L (46-116) Ammonia 39mcmol/L (11-34) Troponin I Quantitative < 0.017ng/mL (0.000-0.055) 0.017ng/mL (0.000-0.055) < 0.017ng/mL (0.000-0.055) SY-Elk-W-Type Natriuretic Peptide > 34215op/mL (0-124) Total Protein 5.3g/dL (6.4-8.2) 4.8g/dL (6.4-8.2) Albumin 1.7g/dL (3.4-5.0) 1.6g/dL (3.4-5.0) Albumin/Globulin Ratio 0.5 (1.0-1.7) 0.5 (1.0-1.7) Lipase 38U/L (73-393) Assessment/Plan Assessment/Plan IMP ESRD ANEMIA HYPOTENSION ASCITES LIVER CIRRHOSIS PLAN HD MWF ARANESP PRBC ALBUMIN PARACENTESIS WILL FOLLOW ADRIAN PANCHAL MD Aug 25, 2016 10:42
[2016-08-25] MEDS: CALCIUM ACETATE 667 MG CAPSULE PO SCH ×2 (11:51→17:35)
[2016-08-25] MEDS: PANTOPRAZOLE 40 MG TABLET. PO SCH ×2 (11:51→17:35)
[2016-08-25] MEDS: FOLIC ACID 1 MG TABLET PO SCH (11:51)
[2016-08-25] MEDS: OXYCODONE ER 15 MG TAB.ER.12H. PO SCH ×2 (11:51→19:26)
[2016-08-25] MEDS: MULTIVITAMIN with MINERAL TABLET. PO SCH (11:51)
[2016-08-25] MEDS: ASCORBIC ACID 500 MG TABLET PO SCH (11:51)
[2016-08-25] MEDS: LEVOTHYROXINE 75 MCG TABLET PO SCH (11:51)
[2016-08-25] MEDS: CALCIUM CARB/VIT D3 500/200 TABLET PO SCH ×2 (11:52→17:35)
[2016-08-25] MEDS: LACTOBACILLUS ACIDOPH & BULGAR 1 TABLET. PO SCH (11:52)
[2016-08-25] MEDS: SODIUM BICARBONATE 650 MG TABLET. PO SCH ×2 (11:52→19:27)
[2016-08-25] MEDS: ALLOPURINOL 100 MG TABLET. PO SCH (11:52)
[2016-08-25] MEDS: INSULIN ASPART 300 UNITS/3 ML INSULN.PEN SQ SCH ×2 (12:00→18:38)
[2016-08-25] MEDS: PHYTONADIONE (VIT K1) 5 MG TABLET PO SCH (12:04)
--- NOTE | 2016-08-25 14:47 | PDOC ---
PROGRESS NOTES Chief Complaint Chief Complaint 1. SIRS,. no sepsis 2. Ascites, recurrent, hepatitis C, cirrhosis: 3. End-stage renal disease, on hemodialysis. 4. Severe thrombocytopenia secondary to cirrhosis. 5. Diabetes mellitus.: SSI 6. Diastolic heart failure, chronic, stable. 7. Hypertension, currently hypotensive, 8. Hypothermia. 9. Severe malnutrition. 10. History of substance abuse, cocaine, marijuana, and ethyl alcohol. 11. Anemia with chronic disease and cirrhosis. 12. low BP, baseline 13. Hypokalemia 14. SEVERE PCM 15. [facility] resident pt was transfered here every 1-2 weeks , for low bp during HD, but nobody was told how low was it on HD and pt has baseline low BP WITH cirrhosis gi ,renal consulted pt got many times of hospice consulted in the past, pt and family always refuse 1u PRBC 08/25 will get paracentesis, hope to dc KEY. History of Present Illness History of Present Illness hb 7.0 Vitals Vitals Vital Signs Date Time Temp Pulse Resp B/P Pulse Ox O2 Delivery O2 Flow Rate FiO2 08/25/16 13:50 87 12 99/74 08/25/16 13:20 98.1 98.1 08/25/16 11:51 Room Air 08/25/16 10:00 99 Physical Exam General: Alert, Oriented X3, Cooperative, No acute distress Lungs: Clear Abdomen: Normal bowel sounds, Soft Extremities: No clubbing Skin: No rashes, No breakdown, No significant lesion Labs LABS Laboratory Tests Test 08/24/16 16:54 08/24/16 21:00 08/24/16 21:16 08/25/16 00:42 White Blood Count 7.4x10^3/uL (4.0-11.0) Red Blood Count 2.67x10^6/uL (4.30-5.70) Hemoglobin 7.3g/dL (13.0-17.5) Hematocrit 23.4% (39.0-53.0) Mean Corpuscular Volume 88fL (79-100) Mean Corpuscular Hemoglobin 27pg (25-35) Mean Corpuscular Hemoglobin Concent 31g/dL (31-37) Red Cell Distribution Width 19.6% (11.5-14.5) Platelet Count 34x10^3/uL (140-400) Neutrophils (%) (Auto) 81% (31-73) Lymphocytes (%) (Auto) 14% (24-48) Monocytes (%) (Auto) 4% (0-9) Eosinophils (%) (Auto) 0% (0-3) Basophils (%) (Auto) 1% (0-3) Neutrophils # (Auto) 6.0x10^3uL (1.8-7.7) Lymphocytes # (Auto) 1.0x10^3/uL (1.0-4.8) Monocytes # (Auto) 0.3x10^3/uL (0.0-1.1) Eosinophils # (Auto) 0.0x10^3/uL (0.0-0.7) Basophils # (Auto) 0.1x10^3/uL (0.0-0.2) Prothrombin Time 17.4SEC (11.7-14.0) Prothromb Time International Ratio 1.5 (0.8-1.1) Sodium Level 145mmol/L (136-145) Potassium Level 2.9mmol/L (3.5-5.1) Chloride Level 110mmol/L (98-107) Carbon Dioxide Level 24mmol/L (21-32) Anion Gap 11 (6-14) Blood Urea Nitrogen 18mg/dL (8-26) Creatinine 3.8mg/dL (0.7-1.3) Estimated GFR (Cockcroft-Gault) 19.9 BUN/Creatinine Ratio 5 (6-20) Glucose Level 229mg/dL (70-99) Lactic Acid Level 3.0mmol/L (0.4-2.0) 1.6mmol/L (0.4-2.0) Calcium Level 7.5mg/dL (8.5-10.1) Total Bilirubin 0.5mg/dL (0.2-1.0) Aspartate Amino Transf (AST/SGOT) 23U/L (15-37) Alanine Aminotransferase (ALT/SGPT) 33U/L (16-63) Alkaline Phosphatase 263U/L (46-116) Ammonia 39mcmol/L (11-34) Troponin I Quantitative < 0.017ng/mL (0.000-0.055) 0.017ng/mL (0.000-0.055) GB-Hsj-U-Type Natriuretic Peptide > 62333yt/mL (0-124) Total Protein 5.3g/dL (6.4-8.2) Albumin 1.7g/dL (3.4-5.0) Albumin/Globulin Ratio 0.5 (1.0-1.7) Lipase 38U/L (73-393) Nasal Screen MRSA (PCR) Negative (Negative) Test 08/25/16 06:20 08/25/16 12:00 White Blood Count 5.5x10^3/uL (4.0-11.0) Red Blood Count 2.53x10^6/uL (4.30-5.70) Hemoglobin 7.0g/dL (13.0-17.5) Hematocrit 22.3% (39.0-53.0) Mean Corpuscular Volume 88fL (79-100) Mean Corpuscular Hemoglobin 28pg (25-35) Mean Corpuscular Hemoglobin Concent 31g/dL (31-37) Red Cell Distribution Width 20.2% (11.5-14.5) Platelet Count 34x10^3/uL (140-400) Neutrophils (%) (Auto) 71% (31-73) Lymphocytes (%) (Auto) 22% (24-48) Monocytes (%) (Auto) 5% (0-9) Eosinophils (%) (Auto) 1% (0-3) Basophils (%) (Auto) 1% (0-3) Neutrophils # (Auto) 3.9x10^3uL (1.8-7.7) Lymphocytes # (Auto) 1.2x10^3/uL (1.0-4.8) Monocytes # (Auto) 0.3x10^3/uL (0.0-1.1) Eosinophils # (Auto) 0.0x10^3/uL (0.0-0.7) Basophils # (Auto) 0.1x10^3/uL (0.0-0.2) Sodium Level 146mmol/L (136-145) Potassium Level 3.6mmol/L (3.5-5.1) Chloride Level 113mmol/L (98-107) Carbon Dioxide Level 22mmol/L (21-32) Anion Gap 11 (6-14) Blood Urea Nitrogen 22mg/dL (8-26) Creatinine 4.4mg/dL (0.7-1.3) Estimated GFR (Cockcroft-Gault) 16.8 BUN/Creatinine Ratio 5 (6-20) Glucose Level 88mg/dL (70-99) Calcium Level 7.4mg/dL (8.5-10.1) Total Bilirubin 0.4mg/dL (0.2-1.0) Aspartate Amino Transf (AST/SGOT) 22U/L (15-37) Alanine Aminotransferase (ALT/SGPT) 28U/L (16-63) Alkaline Phosphatase 243U/L (46-116) Troponin I Quantitative < 0.017ng/mL (0.000-0.055) Total Protein 4.8g/dL (6.4-8.2) Albumin 1.6g/dL (3.4-5.0) Albumin/Globulin Ratio 0.5 (1.0-1.7) Glucose (Fingerstick) 141mg/dL (70-99) Review of Systems Review of Systems no fever, chills, sob or chest pain Assessment and Plan Assessmemt and Plan Problems Medical Problems: (1) Cirrhosis Status: Acute (2) End stage liver disease Status: Acute (3) Hypotension Status: Acute (4) Rapid atrial fibrillation Status: Acute Problems: Comment Review of Relevant I have reviewed the following items дмитрий (where applicable) has been applied. Labs Laboratory Tests Test 08/24/16 16:54 08/24/16 21:00 08/24/16 21:16 08/25/16 00:42 White Blood Count 7.4x10^3/uL (4.0-11.0) Red Blood Count 2.67x10^6/uL (4.30-5.70) Hemoglobin 7.3g/dL (13.0-17.5) Hematocrit 23.4% (39.0-53.0) Mean Corpuscular Volume 88fL (79-100) Mean Corpuscular Hemoglobin 27pg (25-35) Mean Corpuscular Hemoglobin Concent 31g/dL (31-37) Red Cell Distribution Width 19.6% (11.5-14.5) Platelet Count 34x10^3/uL (140-400) Neutrophils (%) (Auto) 81% (31-73) Lymphocytes (%) (Auto) 14% (24-48) Monocytes (%) (Auto) 4% (0-9) Eosinophils (%) (Auto) 0% (0-3) Basophils (%) (Auto) 1% (0-3) Neutrophils # (Auto) 6.0x10^3uL (1.8-7.7) Lymphocytes # (Auto) 1.0x10^3/uL (1.0-4.8) Monocytes # (Auto) 0.3x10^3/uL (0.0-1.1) Eosinophils # (Auto) 0.0x10^3/uL (0.0-0.7) Basophils # (Auto) 0.1x10^3/uL (0.0-0.2) Prothrombin Time 17.4SEC (11.7-14.0) Prothromb Time International Ratio 1.5 (0.8-1.1) Sodium Level 145mmol/L (136-145) Potassium Level 2.9mmol/L (3.5-5.1) Chloride Level 110mmol/L (98-107) Carbon Dioxide Level 24mmol/L (21-32) Anion Gap 11 (6-14) Blood Urea Nitrogen 18mg/dL (8-26) Creatinine 3.8mg/dL (0.7-1.3) Estimated GFR (Cockcroft-Gault) 19.9 BUN/Creatinine Ratio 5 (6-20) Glucose Level 229mg/dL (70-99) Lactic Acid Level 3.0mmol/L (0.4-2.0) 1.6mmol/L (0.4-2.0) Calcium Level 7.5mg/dL (8.5-10.1) Total Bilirubin 0.5mg/dL (0.2-1.0) Aspartate Amino Transf (AST/SGOT) 23U/L (15-37) Alanine Aminotransferase (ALT/SGPT) 33U/L (16-63) Alkaline Phosphatase 263U/L (46-116) Ammonia 39mcmol/L (11-34) Troponin I Quantitative < 0.017ng/mL (0.000-0.055) 0.017ng/mL (0.000-0.055) MC-Esb-Z-Type Natriuretic Peptide > 26312hk/mL (0-124) Total Protein 5.3g/dL (6.4-8.2) Albumin 1.7g/dL (3.4-5.0) Albumin/Globulin Ratio 0.5 (1.0-1.7) Lipase 38U/L (73-393) Nasal Screen MRSA (PCR) Negative (Negative) Test 08/25/16 06:20 08/25/16 12:00 White Blood Count 5.5x10^3/uL (4.0-11.0) Red Blood Count 2.53x10^6/uL (4.30-5.70) Hemoglobin 7.0g/dL (13.0-17.5) Hematocrit 22.3% (39.0-53.0) Mean Corpuscular Volume 88fL (79-100) Mean Corpuscular Hemoglobin 28pg (25-35) Mean Corpuscular Hemoglobin Concent 31g/dL (31-37) Red Cell Distribution Width 20.2% (11.5-14.5) Platelet Count 34x10^3/uL (140-400) Neutrophils (%) (Auto) 71% (31-73) Lymphocytes (%) (Auto) 22% (24-48) Monocytes (%) (Auto) 5% (0-9) Eosinophils (%) (Auto) 1% (0-3) Basophils (%) (Auto) 1% (0-3) Neutrophils # (Auto) 3.9x10^3uL (1.8-7.7) Lymphocytes # (Auto) 1.2x10^3/uL (1.0-4.8) Monocytes # (Auto) 0.3x10^3/uL (0.0-1.1) Eosinophils # (Auto) 0.0x10^3/uL (0.0-0.7) Basophils # (Auto) 0.1x10^3/uL (0.0-0.2) Sodium Level 146mmol/L (136-145) Potassium Level 3.6mmol/L (3.5-5.1) Chloride Level 113mmol/L (98-107) Carbon Dioxide Level 22mmol/L (21-32) Anion Gap 11 (6-14) Blood Urea Nitrogen 22mg/dL (8-26) Creatinine 4.4mg/dL (0.7-1.3) Estimated GFR (Cockcroft-Gault) 16.8 BUN/Creatinine Ratio 5 (6-20) Glucose Level 88mg/dL (70-99) Calcium Level 7.4mg/dL (8.5-10.1) Total Bilirubin 0.4mg/dL (0.2-1.0) Aspartate Amino Transf (AST/SGOT) 22U/L (15-37) Alanine Aminotransferase (ALT/SGPT) 28U/L (16-63) Alkaline Phosphatase 243U/L (46-116) Troponin I Quantitative < 0.017ng/mL (0.000-0.055) Total Protein 4.8g/dL (6.4-8.2) Albumin 1.6g/dL (3.4-5.0) Albumin/Globulin Ratio 0.5 (1.0-1.7) Glucose (Fingerstick) 141mg/dL (70-99) Laboratory Tests Test 08/24/16 16:54 08/24/16 21:00 08/24/16 21:16 08/25/16 00:42 White Blood Count 7.4x10^3/uL (4.0-11.0) Red Blood Count 2.67x10^6/uL (4.30-5.70) Hemoglobin 7.3g/dL (13.0-17.5) Hematocrit 23.4% (39.0-53.0) Mean Corpuscular Volume 88fL (79-100) Mean Corpuscular Hemoglobin 27pg (25-35) Mean Corpuscular Hemoglobin Concent 31g/dL (31-37) Red Cell Distribution Width 19.6% (11.5-14.5) Platelet Count 34x10^3/uL (140-400) Neutrophils (%) (Auto) 81% (31-73) Lymphocytes (%) (Auto) 14% (24-48) Monocytes (%) (Auto) 4% (0-9) Eosinophils (%) (Auto) 0% (0-3) Basophils (%) (Auto) 1% (0-3) Neutrophils # (Auto) 6.0x10^3uL (1.8-7.7) Lymphocytes # (Auto) 1.0x10^3/uL (1.0-4.8) Monocytes # (Auto) 0.3x10^3/uL (0.0-1.1) Eosinophils # (Auto) 0.0x10^3/uL (0.0-0.7) Basophils # (Auto) 0.1x10^3/uL (0.0-0.2) Prothrombin Time 17.4SEC (11.7-14.0) Prothromb Time International Ratio 1.5 (0.8-1.1) Sodium Level 145mmol/L (136-145) Potassium Level 2.9mmol/L (3.5-5.1) Chloride Level 110mmol/L (98-107) Carbon Dioxide Level 24mmol/L (21-32) Anion Gap 11 (6-14) Blood Urea Nitrogen 18mg/dL (8-26) Creatinine 3.8mg/dL (0.7-1.3) Estimated GFR (Cockcroft-Gault) 19.9 BUN/Creatinine Ratio 5 (6-20) Glucose Level 229mg/dL (70-99) Lactic Acid Level 3.0mmol/L (0.4-2.0) 1.6mmol/L (0.4-2.0) Calcium Level 7.5mg/dL (8.5-10.1) Total Bilirubin 0.5mg/dL (0.2-1.0) Aspartate Amino Transf (AST/SGOT) 23U/L (15-37) Alanine Aminotransferase (ALT/SGPT) 33U/L (16-63) Alkaline Phosphatase 263U/L (46-116) Ammonia 39mcmol/L (11-34) Troponin I Quantitative < 0.017ng/mL (0.000-0.055) 0.017ng/mL (0.000-0.055) IG-Dxi-L-Type Natriuretic Peptide > 12409qy/mL (0-124) Total Protein 5.3g/dL (6.4-8.2) Albumin 1.7g/dL (3.4-5.0) Albumin/Globulin Ratio 0.5 (1.0-1.7) Lipase 38U/L (73-393) Nasal Screen MRSA (PCR) Negative (Negative) Test 08/25/16 06:20 08/25/16 12:00 White Blood Count 5.5x10^3/uL (4.0-11.0) Red Blood Count 2.53x10^6/uL (4.30-5.70) Hemoglobin 7.0g/dL (13.0-17.5) Hematocrit 22.3% (39.0-53.0) Mean Corpuscular Volume 88fL (79-100) Mean Corpuscular Hemoglobin 28pg (25-35) Mean Corpuscular Hemoglobin Concent 31g/dL (31-37) Red Cell Distribution Width 20.2% (11.5-14.5) Platelet Count 34x10^3/uL (140-400) Neutrophils (%) (Auto) 71% (31-73) Lymphocytes (%) (Auto) 22% (24-48) Monocytes (%) (Auto) 5% (0-9) Eosinophils (%) (Auto) 1% (0-3) Basophils (%) (Auto) 1% (0-3) Neutrophils # (Auto) 3.9x10^3uL (1.8-7.7) Lymphocytes # (Auto) 1.2x10^3/uL (1.0-4.8) Monocytes # (Auto) 0.3x10^3/uL (0.0-1.1) Eosinophils # (Auto) 0.0x10^3/uL (0.0-0.7) Basophils # (Auto) 0.1x10^3/uL (0.0-0.2) Sodium Level 146mmol/L (136-145) Potassium Level 3.6mmol/L (3.5-5.1) Chloride Level 113mmol/L (98-107) Carbon Dioxide Level 22mmol/L (21-32) Anion Gap 11 (6-14) Blood Urea Nitrogen 22mg/dL (8-26) Creatinine 4.4mg/dL (0.7-1.3) Estimated GFR (Cockcroft-Gault) 16.8 BUN/Creatinine Ratio 5 (6-20) Glucose Level 88mg/dL (70-99) Calcium Level 7.4mg/dL (8.5-10.1) Total Bilirubin 0.4mg/dL (0.2-1.0) Aspartate Amino Transf (AST/SGOT) 22U/L (15-37) Alanine Aminotransferase (ALT/SGPT) 28U/L (16-63) Alkaline Phosphatase 243U/L (46-116) Troponin I Quantitative < 0.017ng/mL (0.000-0.055) Total Protein 4.8g/dL (6.4-8.2) Albumin 1.6g/dL (3.4-5.0) Albumin/Globulin Ratio 0.5 (1.0-1.7) Glucose (Fingerstick) 141mg/dL (70-99) Medications Current Medications Sodium Chloride (Iv Sodium Chloride 0.9% 500ml Bag) 500 ml @ 0 mls/hr 1X ONCE IV Last administered on 08/24/16 17:16; Start 08/24/16 at 16:45; Stop at 16:49; Status DC Ondansetron HCl 4 mg 4 mg PRN Q8HRS PRN IV NAUSEA/VOMITING; Start 08/24/16 at 18:15; Stop 08/24/16 at 18:48; Status DC Sodium Chloride 500 ml @ 0 mls/hr 1X ONCE IV Last administered on 08/24/16 18 :17; Start 08/24/16 at 18:15; Stop 08/24/16 at 18:19; Status DC Sodium Chloride (Iv Sodium Chloride 0.9% 500ml Bag) 500 ml @ 0 mls/hr 1X ONCE IV ; Start 08/24/16 at 18:15; Stop 08/24/16 at 18:19; Status DC Ondansetron HCl (Zofran) 4 mg PRN Q6HRS PRN IV NAUSEA/VOMITING; Start 08/24/16 at 18:44 Ondansetron HCl (Zofran) 4 mg PRN Q6HRS PRN IV NAUSEA/VOMITING; Start 08/24/16 at 18:45; Status UNV Prochlorperazine Edisylate (Compazine) 10 mg PRN Q6HRS PRN IV NAUSEA/VOMITING; Start 08/24/16 at 18:45 Prochlorperazine (Compazine) 25 mg PRN Q12HR PRN NM NAUSEA/VOMITING; Start at 18:45 Al Hydrox/Mg Hydrox/Simethicone (Mylanta Plus Xs) 30 ml PRN Q3HRS PRN PO HEARTBURN / GAS; Start 08/24/16 at 18:45 Calcium Carbonate/ Glycine (Tums) 500 mg PRN Q3HRS PRN PO UPSET STOMACH; Start 08/24/16 at 18:45 Zolpidem Tartrate (Ambien) 2.5 mg PRN QHS PRN PO INSOMNIA, MAY REPEAT IN 1HR; Start 08/24/16 at 18:45 Morphine Sulfate 1 mg PRN Q1HR PRN IV PAIN; Start 08/24/16 at 18:45 Oxycodone HCl (Roxicodone) 5 mg PRN Q4HRS PRN PO MILD PAIN, 1ST CHOICE; Start 08/24/16 at 18:45 Docusate Sodium (Colace) 100 mg BID PO ; Start 08/24/16 at 21:00 Magnesium Hydroxide (Milk Of Magnesia) 2,400 mg PRN Q12HR PRN PO CONSTIPATION; Start 08/24/16 at 18:45 Bisacodyl (Dulcolax Supp) 10 mg PRN DAILY PRN NM CONSTIPATION; Start 08/24/16 at 18:45 Potassium Chloride (Klor-Con) 40 meq 1X ONCE PO Last administered on 19:00; Start 08/24/16 at 19:00; Stop 08/24/16 at 19:01; Status DC Acetaminophen (Tylenol) 650 mg PRN Q4HRS PRN PO PAIN; Start 08/25/16 at 09:30 Allopurinol (Zyloprim) 100 mg DAILY PO Last administered on 08/25/16 11:52; Start 08/25/16 at 10:00 Atorvastatin Calcium (Lipitor) 10 mg QHS PO ; Start 08/25/16 at 21:00 Calcium Acetate (Phoslo) 1,334 mg TIDWMEALS PO Last administered on 08/25/16 11:51; Start 08/25/16 at 12:00 Folic Acid (Folic Acid) 1 mg DAILY PO Last administered on 08/25/16 11:51; Start 08/25/16 at 10:00 Albuterol/ Ipratropium (Duoneb) 3 ml Q8HRS NEB ; Start 08/25/16 at 14:00 Levothyroxine Sodium (Synthroid) 75 mcg DAILYAC PO Last administered on 11:51; Start 08/25/16 at 10:00 Loperamide HCl (Imodium) 2 mg PRN Q6HRS PRN PO DIARRHEA; Start 08/25/16 at 09: 30 Midodrine (Proamatine) 2.5 mg PRN TID PRN PO BLOOD PRESSURE; Start 08/25/16 at 09:30 Oxycodone HCl (Oxycontin) 15 mg BID PO Last administered on 08/25/16 11:51; Start 08/25/16 at 10:00 Pantoprazole Sodium (Protonix) 40 mg BIDAC PO Last administered on 08/25/16 11 :51; Start 08/25/16 at 10:00 Phytonadione (Mephyton) 10 mg DAILY PO Last administered on 08/25/16 12:04; Start 08/25/16 at 10:00 Sodium Bicarbonate (Sodium Bicarbonate) 1,300 mg BID PO Last administered on 11:52; Start 08/25/16 at 10:00 Calcium/Vitamin D (Oscal D 500mg/ 200uts) 1 tab BIDWMEALS PO Last administered on 08/25/16 11:52; Start 08/25/16 at 10:00 Non-Formulary Medication 1 inh BID IH ; Start 08/25/16 at 21:00; Status UNV Lactobacillus Acidophilus (Bacid, Lou-Bid) 1 tab DAILY PO Last administered on 08/25/16 11:52; Start 08/25/16 at 10:00 Multivitamins/ Calcium (Thera M Plus) 1 tab DAILY PO Last administered on 11:51; Start 08/25/16 at 10:00 Oxycodone HCl (Roxicodone) 15 mg PRN Q3HRS PRN PO PAIN; Start 08/25/16 at 09:30 Insulin Aspart (Novolog) 0-9 UNITS TIDWMEALS SQ ; Start 08/25/16 at 12:00 Dextrose 12.5 gm PRN Q15MIN PRN IV SEE COMMENTS; Start 08/25/16 at 09:30 Darbepoetin Aaron (Aranesp) 60 mcg WEEKLYHS SQ ; Start 08/25/16 at 21:00 Ascorbic Acid (Vitamin C) 500 mg DAILY PO Last administered on 08/25/16 11:51 ; Start 08/25/16 at 11:30 Active Scripts Active Midodrine Hcl 2.5 Mg Tablet 2.5 Mg PO PRN TID PRN Reported Novolog Flexpen (Insulin Aspart) 100 Unit/1 Ml Insuln.pen 3 Unit SQ TID Flomax (Tamsulosin Hcl) 0.4 Mg Cap.er.24h 0.4 Mg PO DAILY Flagyl (Metronidazole) 500 Mg Tablet 500 Mg PO TID 10 Days Duoneb 0.5-3(2.5) Mg/3 Ml (Albuterol/Ipratropium) 3 Ml Ampul.neb 3 Ml NEB Q8HRS Imodium A-D (Loperamide HCl) 2 Mg Capsule 2 Mg PO PRN Q6HRS PRN Mephyton (Phytonadione) 5 Mg Tablet 10 Mg PO DAILY Phoslo (Calcium Acetate) 667 Mg Capsule 2 Cap PO TIDWMEALS Allopurinol 100 Mg Tablet 1 Tab PO DAILY Oxycontin (Oxycodone HCl) 15 Mg Tab.er.12h 15 Mg PO BID Oxycodone Hcl 5 Mg Capsule 15 Mg PO Q3HRS PRN Oyster Shell Calcium-Vit D Tab (Calcium Carbonate/Vitamin D2) 1 Each Tablet 1 Each PO BID Acidophilus Lactobacillus (Lactobacillus Acidophilus) 1 Each Capsule 1 Each PO DAILY Glucagon Emergency Kit (Glucagon,Human Recombinant) 1 Mg Kit 1 Mg IM PRN Acetaminophen 325 Mg Tablet 650 Mg PO PRN Q4HRS PRN Sodium Bicarbonate 650 Mg Tablet 1 Tab PO BID Protonix (Pantoprazole Sodium) 40 Mg Tablet.dr 1 Tab PO BID Multi-Vitamin Daily (Multivitamin) 1 Each Tablet 1 Each PO DAILY Combivent Respimat Inhal (Ipratropium/Albuterol Sulfate) 4 Gm Aer.w.adap 1 Inh IH BID Atorvastatin Calcium 10 Mg Tablet 1 Tab PO DAILY Folic Acid 1 Mg Tablet 1 Mg PO DAILY Levothyroxine Sodium 25 Mcg Tablet 75 Mcg PO DAILYAC Vitals/I & O Vital Sign - Last 24 Hours 08/24/16 08/24/16 08/24/16 08/24/16 16:40 16:45 16:50 16:54 Temp 97.6 97.6 Pulse 137 136 134 136 Resp 22 12 14 12 B/P 58/42 62/48 65/51 64/49 Pulse Ox 99 98 O2 Delivery Room Air Room Air Room Air Room Air 08/24/16 08/24/16 08/24/16 08/24/16 16:59 17:04 17:09 17:14 Pulse 134 136 132 132 Resp 16 12 12 13 B/P 60/51 64/53 84/70 88/76 Pulse Ox 100 100 100 O2 Delivery Room Air Room Air Room Air Room Air 08/24/16 08/24/16 08/24/16 08/24/16 17:19 17:24 17:29 17:34 Pulse 132 132 130 130 Resp 11 12 12 13 B/P 93/76 96/73 94/76 97/70 Pulse Ox 100 100 100 100 O2 Delivery Room Air Room Air Room Air Room Air 08/24/16 08/24/16 08/24/16 08/24/16 17:39 17:44 17:49 17:54 Pulse 130 130 132 132 Resp 12 12 12 11 B/P 102/73 102/74 97/74 96/75 Pulse Ox 100 100 100 100 O2 Delivery Room Air Room Air Room Air Room Air 08/24/16 08/24/16 08/24/16 08/24/16 18:00 18:05 18:10 18:15 Pulse 134 132 132 130 Resp 11 11 11 11 B/P 97/76 97/72 98/70 94/78 Pulse Ox 100 100 100 100 O2 Delivery Room Air Room Air Room Air Room Air 08/24/16 08/24/16 08/24/16 08/24/16 18:20 18:25 18:30 18:35 Pulse 138 130 128 130 Resp 25 14 11 13 B/P 104/79 103/76 103/84 103/75 Pulse Ox 100 100 100 100 O2 Delivery Room Air Room Air Room Air Room Air 08/24/16 08/24/16 08/24/16 08/24/16 19:00 19:30 20:00 20:30 Pulse 128 130 126 126 B/P 110/62 96/80 86/65 90/65 Pulse Ox 99 100 93 O2 Delivery Room Air Room Air Room Air Room Air 08/24/16 08/24/16 08/24/16 08/24/16 21:00 21:00 21:15 21:30 Temp 97.3 97.3 Pulse 126 126 130 Resp 15 12 10 B/P 84/67 94/77 83/69 Pulse Ox 100 100 100 O2 Delivery Room Air Room Air Room Air Room Air 08/24/16 08/24/16 08/24/16 08/25/16 21:45 22:00 23:00 00:00 Pulse 130 128 132 Resp 12 13 10 B/P 83/75 87/72 101/79 Pulse Ox 100 100 100 O2 Delivery Room Air Room Air Room Air Room Air 08/25/16 08/25/16 08/25/16 08/25/16 00:00 01:00 02:00 03:00 Temp 97.6 97.6 Pulse 130 133 129 134 Resp 12 11 10 13 B/P 82/67 93/68 91/69 93/80 Pulse Ox 99 100 100 100 O2 Delivery Room Air Room Air Room Air Room Air 08/25/16 08/25/16 08/25/16 08/25/16 04:00 04:00 05:00 06:00 Temp 97.2 97.2 Pulse 127 125 125 Resp 10 12 10 B/P 87/68 81/68 92/74 Pulse Ox 98 100 99 O2 Delivery Room Air Room Air Room Air Room Air 08/25/16 08/25/16 08/25/16 08/25/16 07:00 08:00 08:00 09:00 Temp 97.6 97.6 Pulse 130 128 131 Resp 16 10 12 B/P 90/71 82/68 86/75 Pulse Ox 98 100 100 O2 Delivery Room Air Room Air Room Air Room Air 08/25/16 08/25/16 08/25/16 08/25/16 10:00 11:51 13:05 13:20 Temp 98.0 98.1 98.0 98.1 Pulse 128 82 95 Resp 12 22 12 12 B/P 84/72 102/74 100/70 Pulse Ox 99 O2 Delivery Room Air Room Air 08/25/16 08/25/16 13:35 13:50 Pulse 84 87 Resp 12 12 B/P 97/72 99/74 Intake and Output 08/24/16 08/24/16 08/25/16 15:00 23:00 07:00 Intake Total 1000 ml 0 ml Output Total 2 ml Balance 1000 ml -2 ml Nutrition Consultation Dietary Evaluation: Recommendations by RD: Increase Calorie Intake, Protein supplementation Comments: Increased calorie and protein needs-add. Novasource Renal protein supplement BID Rec. a daily MVT and 500 mg Vitamin C BID to aide with wound healing Encourage good PO intake Expected Outcomes/Goals: meet > 75% estimated nutrition needs no further weight loss Malnutrition Findings: Body Fat Depletion (Non Severe: Mild Depletion Reduced Skate Boarder Strength: N/A Reduced Skate Boarder Strength (Non-Sev: N/A Malnutrition related to morbid: No Weight Status: Appropriate JOSSE STAHL MD Aug 25, 2016 14:47
--- NOTE | 2016-08-25 15:58 | PDOC2 ---
PALLIATIVE CARE Palliative Care Note Palliative Care Consult requested by Dr. Harris to address goals of care Patient well known to [facility] from previous admissions Diagnosis: Cirrhosis, ESLD. Hypotension, at fib. ESRD on dialysis--held secondary to hypotension prior to admission Spoke with patient this am. Alert and oriented. Discussed his medical condition. States he want to keep "doing the same thing like I always do" Attempted to reach his sister Blanca--no answer--message left to return call to discuss discharge plan and goals. Code Status: Confirmed Full Code. Will arrange meeting with family when sister returns call. NESTOR ALANIZ Aug 25, 2016 15:58
[2016-08-25] MEDS ORDERED: LIDOCAINE 1% / SOD BICARB 8.4% 20 ML VIAL. IJ ONE (16:07)
[2016-08-25] MEDS: IPRATRPIUM/ALBUTEROL 0.5/2.5MG 3 ML NEBU. NEB SCH ×2 (16:24→23:28)
[2016-08-25] MEDS: ZOLPIDEM 5 MG TABLET. PO PRN (19:26)
[2016-08-25] MEDS: ATORVASTATIN CALCIUM 10 MG TABLET. PO SCH (19:36)
[2016-08-25] MEDS ORDERED: DARBEPOETIN ALFA 60 MCG/0.3 ML DISP.SYRIN. SQ SCH (21:00)
[2016-08-25] MEDS ORDERED: NON FORMULARY ITEM (Ipratropium/Albuterol Sulfate (Combivent Respimat Inhal) 1 INH) IH SCH (21:00)
--- NOTE | 2016-08-25 22:41 | ACF ---
Admission Forms Criteria HEMODYNAMIC INSTABILITY Clinical Indications for Inpatient Care (Place 'X' for any and all applicable criteria): Ongoing inpatient care may be indicated for hemodynamic instability as indicated by ANY ONE of the following (1)(2)(3)(4)(10): [ ]I) Marked hemodynamic change from baseline (eg, SBP 20 mm Hg below patient's usual pressure) [X]II) New SBP less than 90 mm Hg or mean arterial pressure less than 70 mm Hg [B](15) [ ]IIII) Symptomatic heart rate greater than 100 or less than 60 beats per minute unresponsive to treatment (eg, analgesia, fluids) [ ]IV) Inadequate perfusion as indicated by ANY ONE of the following: [ ]a) Lactic acidosis, with lactic acid greater than 18 mg/dL (2 mmol/ L) or base excess less than -5 mEq/L [ ]b) New abnormal capillary refill (longer than 3 seconds) [ ]c) New altered mental status [ ]d) Reduced urine output [ ]V) Orthostatic vital sign changes [B] that are symptomatic and unresponsive to treatment (eg, fluids) [ ]) IV inotropic or vasopressor medication required(26) Extended stay beyond goal length of stay for primary condition may be needed until ALL of the following are present(1)(2)(3): [ ]a) Heart rate > 60 and < 100 beats per minute or patient is clinically stable at current rate (eg, baseline) [ ]b) SBP >100 mm Hg and <160 mm Hg or patient is clinically stable at current pressure (eg, baseline) [ ]c) DBP greater than 50 mm Hg and less than 100 mm Hg or patient is clinically stable at current pressure (eg, baseline) [ ]d) Urine output greater than 0.5 mL/kg per hour [ ]e) Room air oxygen saturation 90% or greater or at baseline [ ]f) Orthostatic vital sign changes absent, asymptomatic, at baseline, or manageable at lower level of care [ ]g) Medical comorbidities manageable at lower level of care The original [employer] content created by [employer] has been revised. The portions of the content which have been revised are identified through the use of italic text or in bold, and [facility] has neither reviewed nor approved the modified material. All other unmodified content is copyright [employer]. Please see references footnoted in the original [facility] edition 2016 Admission Criteria Met?: Yes ASHWIN NANCE Aug 25, 2016 22:41
[2016-08-26] VITALS (10 sets, daily range): BP systolic 92–121; BP diastolic 67–82
[2016-08-26] MEDS: IPRATRPIUM/ALBUTEROL 0.5/2.5MG 3 ML NEBU. NEB SCH ×3 (06:00→19:40)
[2016-08-26 07:21] LABS: CALCIUM 7.6 mg/dL (8.5-10.1); CREATININE 5.4 mg/dL (0.7-1.3); GFR 13.3; POTASSIUM 3.3 mmol/L (3.5-5.1)
[2016-08-26] MEDS: PANTOPRAZOLE 40 MG TABLET. PO SCH ×2 (07:30→16:36)
[2016-08-26] MEDS: LEVOTHYROXINE 75 MCG TABLET PO SCH (07:30)
[2016-08-26 07:31] LABS: HEMATOCRIT 26.4 % (39.0-53.0); HEMOGLOBIN 8.3 g/dL (13.0-17.5); RED BLOOD COUNT 2.98 x10^6/uL (4.30-5.70); RED CELL DISTRIBUTION WIDTH 19.3 % (11.5-14.5); WHITE BLOOD COUNT 5.7 x10^3/uL (4.0-11.0)
[2016-08-26] MEDS: INSULIN ASPART 300 UNITS/3 ML INSULN.PEN SQ SCH ×3 (08:00→16:47)
[2016-08-26] MEDS: CALCIUM CARB/VIT D3 500/200 TABLET PO SCH ×2 (08:00→16:36)
[2016-08-26] MEDS: CALCIUM ACETATE 667 MG CAPSULE PO SCH ×3 (08:00→16:44)
[2016-08-26] MEDS ORDERED: IV NORMAL SALINE 1000ML BAG 1,000 ML IV PRN (08:44)
[2016-08-26] MEDS ORDERED: 0.9 % SODIUM CHLORIDE 10 ML DISP.SYRIN. IV PRN ×2 (08:45)
[2016-08-26] MEDS ORDERED: DIPHENHYDRAMINE 50 MG/ML VIAL IV PRN ×2 (08:45)
[2016-08-26] MEDS ORDERED: DIALYSIS PATIENT. MC PRN ×2 (08:45)
--- NOTE | 2016-08-26 09:14 | PDOC ---
Objective: Objective: Didn't have paracentesis yesterday. Vital Signs: Vital Signs Date Time Temp Pulse Resp B/P Pulse Ox O2 Delivery O2 Flow Rate FiO2 08/26/16 03:34 20 08/25/16 23:42 98 Room Air 08/25/16 19:23 98.0 125 82/62 98.0 Labs: Laboratory Tests Test 08/25/16 12:00 08/25/16 15:38 08/25/16 18:18 08/25/16 20:55 Glucose (Fingerstick) 141mg/dL 212mg/dL 212mg/dL Clostridium difficile Toxin (PCR) Negative Test 08/26/16 06:20 White Blood Count 5.7x10^3/uL Red Blood Count 2.98x10^6/uL Hemoglobin 8.3g/dL Hematocrit 26.4% Mean Corpuscular Volume 89fL Mean Corpuscular Hemoglobin 28pg Mean Corpuscular Hemoglobin Concent 31g/dL Red Cell Distribution Width 19.3% Platelet Count 38x10^3/uL Sodium Level 148mmol/L Potassium Level 3.3mmol/L Chloride Level 113mmol/L Carbon Dioxide Level 24mmol/L Anion Gap 11 Blood Urea Nitrogen 26mg/dL Creatinine 5.4mg/dL Estimated GFR (Cockcroft-Gault) 13.3 Glucose Level 181mg/dL Calcium Level 7.6mg/dL PE: GEN: NAD, dialyzing ABD: distended/ascites NEURO/PSYCH: A & O 3 A/P: Cirrhosis, ascites -Hep C, alcohol -requires frequent paracentesis, last 08/11/16 (10.5L removed) ESRD on HD Anemia, thrombocytopenia H/o C Diff -neg this admission -- Paracentesis planned for today following dialysis. SARAVANAN KEARNEY Aug 26, 2016 09:14
--- NOTE | 2016-08-26 10:52 | PDOC ---
Renal-Progress Notes Subjective Notes Notes NONE, LAB REVIEW History of Present Illness Hx of present illness NO CHANGE Vitals Vitals Vital Signs Date Time Temp Pulse Resp B/P Pulse Ox O2 Delivery O2 Flow Rate FiO2 08/26/16 03:34 20 08/25/16 23:42 98 Room Air 08/25/16 19:23 98.0 125 82/62 98.0 Weight Weight [ ] I.O. Intake and Output Intake and Output 08/26/16 07:00 Intake Total 400 ml Output Total 0 ml Balance 400 ml Intake Oral 400 ml Output Urine Total 0 ml # Bowel Movements 3 Labs Labs Laboratory Tests Test 08/25/16 12:00 08/25/16 15:38 08/25/16 18:18 08/25/16 20:55 Glucose (Fingerstick) 141mg/dL (70-99) 212mg/dL (70-99) 212mg/dL (70-99) Clostridium difficile Toxin (PCR) Negative (Negative) Test 08/26/16 06:20 White Blood Count 5.7x10^3/uL (4.0-11.0) Red Blood Count 2.98x10^6/uL (4.30-5.70) Hemoglobin 8.3g/dL (13.0-17.5) Hematocrit 26.4% (39.0-53.0) Mean Corpuscular Volume 89fL (79-100) Mean Corpuscular Hemoglobin 28pg (25-35) Mean Corpuscular Hemoglobin Concent 31g/dL (31-37) Red Cell Distribution Width 19.3% (11.5-14.5) Platelet Count 38x10^3/uL (140-400) Sodium Level 148mmol/L (136-145) Potassium Level 3.3mmol/L (3.5-5.1) Chloride Level 113mmol/L (98-107) Carbon Dioxide Level 24mmol/L (21-32) Anion Gap 11 (6-14) Blood Urea Nitrogen 26mg/dL (8-26) Creatinine 5.4mg/dL (0.7-1.3) Estimated GFR (Cockcroft-Gault) 13.3 Glucose Level 181mg/dL (70-99) Calcium Level 7.6mg/dL (8.5-10.1) Micro Micro Microbiology 08/24/16 Blood Culture - Preliminary, Resulted NO GROWTH AFTER 1 DAY Review of Systems Constitutional: yes: no symptom reported Physical Exam General Appearance: no apparent distress Skin: warm Respiratory: bilateral CTA Heart: S1S2, RRR Abdomen: soft Musculoskeletal: Other Assessment Assessment IMP ESRD ANEMIA ASCITES PLAN HD TODAY UF TO DW PARACENTESIS ADRIAN PANCHAL MD Aug 26, 2016 10:52
--- NOTE | 2016-08-26 12:00 | PDOC ---
PROGRESS NOTES Chief Complaint Chief Complaint 1. SIRS,. no sepsis 2. Ascites, recurrent, hepatitis C, cirrhosis: 3. End-stage renal disease, on hemodialysis. 4. Thrombocytopenia secondary to cirrhosis. 5. Diabetes mellitus.: SSI 6. Diastolic heart failure, chronic, stable. 7. Chronic hypotensive. 8. PCM Plan Paracentesis today HD per nephrology s/p FFP today know him from previous admission, clinically worsening but family declined to talk to palliative car e CPM Prognosis poor History of Present Illness History of Present Illness hb 7.0 Vitals Vitals Vital Signs Date Time Temp Pulse Resp B/P Pulse Ox O2 Delivery O2 Flow Rate FiO2 08/26/16 11:31 97.8 94 17 103/80 97 Room Air 97.8 Physical Exam General: Alert, Oriented X3, Cooperative, No acute distress Heart: Normal S1, Normal S2 Lungs: Clear Abdomen: Normal bowel sounds, Soft Extremities: No clubbing Skin: No rashes, No breakdown, No significant lesion Labs LABS Laboratory Tests Test 08/25/16 15:38 08/25/16 18:18 08/25/16 20:55 08/26/16 06:20 Clostridium difficile Toxin (PCR) Negative (Negative) Glucose (Fingerstick) 212mg/dL (70-99) 212mg/dL (70-99) White Blood Count 5.7x10^3/uL (4.0-11.0) Red Blood Count 2.98x10^6/uL (4.30-5.70) Hemoglobin 8.3g/dL (13.0-17.5) Hematocrit 26.4% (39.0-53.0) Mean Corpuscular Volume 89fL (79-100) Mean Corpuscular Hemoglobin 28pg (25-35) Mean Corpuscular Hemoglobin Concent 31g/dL (31-37) Red Cell Distribution Width 19.3% (11.5-14.5) Platelet Count 38x10^3/uL (140-400) Sodium Level 148mmol/L (136-145) Potassium Level 3.3mmol/L (3.5-5.1) Chloride Level 113mmol/L (98-107) Carbon Dioxide Level 24mmol/L (21-32) Anion Gap 11 (6-14) Blood Urea Nitrogen 26mg/dL (8-26) Creatinine 5.4mg/dL (0.7-1.3) Estimated GFR (Cockcroft-Gault) 13.3 Glucose Level 181mg/dL (70-99) Calcium Level 7.6mg/dL (8.5-10.1) Test 08/26/16 11:34 Glucose (Fingerstick) 102mg/dL (70-99) Assessment and Plan Assessmemt and Plan Problems Medical Problems: (1) Cirrhosis Status: Acute (2) End stage liver disease Status: Acute (3) Hypotension Status: Acute (4) Rapid atrial fibrillation Status: Acute Problems: Comment Review of Relevant I have reviewed the following items дмитрий (where applicable) has been applied. Labs Laboratory Tests Test 08/24/16 16:54 08/24/16 21:00 08/24/16 21:16 08/25/16 00:42 White Blood Count 7.4x10^3/uL (4.0-11.0) Red Blood Count 2.67x10^6/uL (4.30-5.70) Hemoglobin 7.3g/dL (13.0-17.5) Hematocrit 23.4% (39.0-53.0) Mean Corpuscular Volume 88fL (79-100) Mean Corpuscular Hemoglobin 27pg (25-35) Mean Corpuscular Hemoglobin Concent 31g/dL (31-37) Red Cell Distribution Width 19.6% (11.5-14.5) Platelet Count 34x10^3/uL (140-400) Neutrophils (%) (Auto) 81% (31-73) Lymphocytes (%) (Auto) 14% (24-48) Monocytes (%) (Auto) 4% (0-9) Eosinophils (%) (Auto) 0% (0-3) Basophils (%) (Auto) 1% (0-3) Neutrophils # (Auto) 6.0x10^3uL (1.8-7.7) Lymphocytes # (Auto) 1.0x10^3/uL (1.0-4.8) Monocytes # (Auto) 0.3x10^3/uL (0.0-1.1) Eosinophils # (Auto) 0.0x10^3/uL (0.0-0.7) Basophils # (Auto) 0.1x10^3/uL (0.0-0.2) Prothrombin Time 17.4SEC (11.7-14.0) Prothromb Time International Ratio 1.5 (0.8-1.1) Sodium Level 145mmol/L (136-145) Potassium Level 2.9mmol/L (3.5-5.1) Chloride Level 110mmol/L (98-107) Carbon Dioxide Level 24mmol/L (21-32) Anion Gap 11 (6-14) Blood Urea Nitrogen 18mg/dL (8-26) Creatinine 3.8mg/dL (0.7-1.3) Estimated GFR (Cockcroft-Gault) 19.9 BUN/Creatinine Ratio 5 (6-20) Glucose Level 229mg/dL (70-99) Lactic Acid Level 3.0mmol/L (0.4-2.0) 1.6mmol/L (0.4-2.0) Calcium Level 7.5mg/dL (8.5-10.1) Total Bilirubin 0.5mg/dL (0.2-1.0) Aspartate Amino Transf (AST/SGOT) 23U/L (15-37) Alanine Aminotransferase (ALT/SGPT) 33U/L (16-63) Alkaline Phosphatase 263U/L (46-116) Ammonia 39mcmol/L (11-34) Troponin I Quantitative < 0.017ng/mL (0.000-0.055) 0.017ng/mL (0.000-0.055) QA-Nnh-I-Type Natriuretic Peptide > 76239tn/mL (0-124) Total Protein 5.3g/dL (6.4-8.2) Albumin 1.7g/dL (3.4-5.0) Albumin/Globulin Ratio 0.5 (1.0-1.7) Lipase 38U/L (73-393) Nasal Screen MRSA (PCR) Negative (Negative) Test 08/25/16 06:20 08/25/16 12:00 08/25/16 15:38 08/25/16 18:18 White Blood Count 5.5x10^3/uL (4.0-11.0) Red Blood Count 2.53x10^6/uL (4.30-5.70) Hemoglobin 7.0g/dL (13.0-17.5) Hematocrit 22.3% (39.0-53.0) Mean Corpuscular Volume 88fL (79-100) Mean Corpuscular Hemoglobin 28pg (25-35) Mean Corpuscular Hemoglobin Concent 31g/dL (31-37) Red Cell Distribution Width 20.2% (11.5-14.5) Platelet Count 34x10^3/uL (140-400) Neutrophils (%) (Auto) 71% (31-73) Lymphocytes (%) (Auto) 22% (24-48) Monocytes (%) (Auto) 5% (0-9) Eosinophils (%) (Auto) 1% (0-3) Basophils (%) (Auto) 1% (0-3) Neutrophils # (Auto) 3.9x10^3uL (1.8-7.7) Lymphocytes # (Auto) 1.2x10^3/uL (1.0-4.8) Monocytes # (Auto) 0.3x10^3/uL (0.0-1.1) Eosinophils # (Auto) 0.0x10^3/uL (0.0-0.7) Basophils # (Auto) 0.1x10^3/uL (0.0-0.2) Sodium Level 146mmol/L (136-145) Potassium Level 3.6mmol/L (3.5-5.1) Chloride Level 113mmol/L (98-107) Carbon Dioxide Level 22mmol/L (21-32) Anion Gap 11 (6-14) Blood Urea Nitrogen 22mg/dL (8-26) Creatinine 4.4mg/dL (0.7-1.3) Estimated GFR (Cockcroft-Gault) 16.8 BUN/Creatinine Ratio 5 (6-20) Glucose Level 88mg/dL (70-99) Calcium Level 7.4mg/dL (8.5-10.1) Total Bilirubin 0.4mg/dL (0.2-1.0) Aspartate Amino Transf (AST/SGOT) 22U/L (15-37) Alanine Aminotransferase (ALT/SGPT) 28U/L (16-63) Alkaline Phosphatase 243U/L (46-116) Troponin I Quantitative < 0.017ng/mL (0.000-0.055) Total Protein 4.8g/dL (6.4-8.2) Albumin 1.6g/dL (3.4-5.0) Albumin/Globulin Ratio 0.5 (1.0-1.7) Glucose (Fingerstick) 141mg/dL (70-99) 212mg/dL (70-99) Clostridium difficile Toxin (PCR) Negative (Negative) Test 08/25/16 20:55 08/26/16 06:20 08/26/16 11:34 Glucose (Fingerstick) 212mg/dL (70-99) 102mg/dL (70-99) White Blood Count 5.7x10^3/uL (4.0-11.0) Red Blood Count 2.98x10^6/uL (4.30-5.70) Hemoglobin 8.3g/dL (13.0-17.5) Hematocrit 26.4% (39.0-53.0) Mean Corpuscular Volume 89fL (79-100) Mean Corpuscular Hemoglobin 28pg (25-35) Mean Corpuscular Hemoglobin Concent 31g/dL (31-37) Red Cell Distribution Width 19.3% (11.5-14.5) Platelet Count 38x10^3/uL (140-400) Sodium Level 148mmol/L (136-145) Potassium Level 3.3mmol/L (3.5-5.1) Chloride Level 113mmol/L (98-107) Carbon Dioxide Level 24mmol/L (21-32) Anion Gap 11 (6-14) Blood Urea Nitrogen 26mg/dL (8-26) Creatinine 5.4mg/dL (0.7-1.3) Estimated GFR (Cockcroft-Gault) 13.3 Glucose Level 181mg/dL (70-99) Calcium Level 7.6mg/dL (8.5-10.1) Laboratory Tests Test 08/25/16 15:38 08/25/16 18:18 08/25/16 20:55 08/26/16 06:20 Clostridium difficile Toxin (PCR) Negative (Negative) Glucose (Fingerstick) 212mg/dL (70-99) 212mg/dL (70-99) White Blood Count 5.7x10^3/uL (4.0-11.0) Red Blood Count 2.98x10^6/uL (4.30-5.70) Hemoglobin 8.3g/dL (13.0-17.5) Hematocrit 26.4% (39.0-53.0) Mean Corpuscular Volume 89fL (79-100) Mean Corpuscular Hemoglobin 28pg (25-35) Mean Corpuscular Hemoglobin Concent 31g/dL (31-37) Red Cell Distribution Width 19.3% (11.5-14.5) Platelet Count 38x10^3/uL (140-400) Sodium Level 148mmol/L (136-145) Potassium Level 3.3mmol/L (3.5-5.1) Chloride Level 113mmol/L (98-107) Carbon Dioxide Level 24mmol/L (21-32) Anion Gap 11 (6-14) Blood Urea Nitrogen 26mg/dL (8-26) Creatinine 5.4mg/dL (0.7-1.3) Estimated GFR (Cockcroft-Gault) 13.3 Glucose Level 181mg/dL (70-99) Calcium Level 7.6mg/dL (8.5-10.1) Test 08/26/16 11:34 Glucose (Fingerstick) 102mg/dL (70-99) Microbiology 08/24/16 Blood Culture - Preliminary, Resulted NO GROWTH AFTER 1 DAY Medications Current Medications Sodium Chloride (Iv Sodium Chloride 0.9% 500ml Bag) 500 ml @ 0 mls/hr 1X ONCE IV Last administered on 08/24/16 17:16; Start 08/24/16 at 16:45; Stop at 16:49; Status DC Ondansetron HCl 4 mg 4 mg PRN Q8HRS PRN IV NAUSEA/VOMITING; Start 08/24/16 at 18:15; Stop 08/24/16 at 18:48; Status DC Sodium Chloride 500 ml @ 0 mls/hr 1X ONCE IV Last administered on 08/24/16 18 :17; Start 08/24/16 at 18:15; Stop 08/24/16 at 18:19; Status DC Sodium Chloride (Iv Sodium Chloride 0.9% 500ml Bag) 500 ml @ 0 mls/hr 1X ONCE IV ; Start 08/24/16 at 18:15; Stop 08/24/16 at 18:19; Status DC Ondansetron HCl (Zofran) 4 mg PRN Q6HRS PRN IV NAUSEA/VOMITING; Start 08/24/16 at 18:44 Ondansetron HCl (Zofran) 4 mg PRN Q6HRS PRN IV NAUSEA/VOMITING; Start 08/24/16 at 18:45; Status UNV Prochlorperazine Edisylate (Compazine) 10 mg PRN Q6HRS PRN IV NAUSEA/VOMITING; Start 08/24/16 at 18:45 Prochlorperazine (Compazine) 25 mg PRN Q12HR PRN [place] NAUSEA/VOMITING; Start at 18:45 Al Hydrox/Mg Hydrox/Simethicone (Mylanta Plus Xs) 30 ml PRN Q3HRS PRN PO HEARTBURN / GAS; Start 08/24/16 at 18:45 Calcium Carbonate/ Glycine (Tums) 500 mg PRN Q3HRS PRN PO UPSET STOMACH; Start 08/24/16 at 18:45 Zolpidem Tartrate (Ambien) 2.5 mg PRN QHS PRN PO INSOMNIA, MAY REPEAT IN 1HR Last administered on 08/25/16 19:26; Start 08/24/16 at 18:45 Morphine Sulfate 1 mg PRN Q1HR PRN IV PAIN; Start 08/24/16 at 18:45 Oxycodone HCl (Roxicodone) 5 mg PRN Q4HRS PRN PO MILD PAIN, 1ST CHOICE; Start 08/24/16 at 18:45 Docusate Sodium (Colace) 100 mg BID PO ; Start 08/24/16 at 21:00 Magnesium Hydroxide (Milk Of Magnesia) 2,400 mg PRN Q12HR PRN PO CONSTIPATION; Start 08/24/16 at 18:45 Bisacodyl (Dulcolax Supp) 10 mg PRN DAILY PRN [place] CONSTIPATION; Start 08/24/16 at 18:45 Potassium Chloride (Klor-Con) 40 meq 1X ONCE PO Last administered on t 19:00; Start 08/24/16 at 19:00; Stop 08/24/16 at 19:01; Status DC Acetaminophen (Tylenol) 650 mg PRN Q4HRS PRN PO PAIN; Start 08/25/16 at 09:30 Allopurinol (Zyloprim) 100 mg DAILY PO Last administered on 08/25/16 11:52; Start 08/25/16 at 10:00 Atorvastatin Calcium (Lipitor) 10 mg QHS PO ; Start 08/25/16 at 21:00 Calcium Acetate (Phoslo) 1,334 mg TIDWMEALS PO Last administered on 08/25/16 17:35; Start 08/25/16 at 12:00 Folic Acid (Folic Acid) 1 mg DAILY PO Last administered on 08/25/16 11:51; Start 08/25/16 at 10:00 Albuterol/ Ipratropium (Duoneb) 3 ml Q8HRS NEB Last administered on 08/25/16 23:28; Start 08/25/16 at 14:00 Levothyroxine Sodium (Synthroid) 75 mcg DAILYAC PO Last administered on 11:51; Start 08/25/16 at 10:00 Loperamide HCl (Imodium) 2 mg PRN Q6HRS PRN PO DIARRHEA; Start 08/25/16 at 09: 30 Midodrine (Proamatine) 2.5 mg PRN TID PRN PO BLOOD PRESSURE; Start 08/25/16 at 09:30 Oxycodone HCl (Oxycontin) 15 mg BID PO Last administered on 08/25/16 19:26; Start 08/25/16 at 10:00 Pantoprazole Sodium (Protonix) 40 mg BIDAC PO Last administered on 08/25/16 17 :35; Start 08/25/16 at 10:00 Phytonadione (Mephyton) 10 mg DAILY PO Last administered on 08/25/16 12:04; Start 08/25/16 at 10:00 Sodium Bicarbonate (Sodium Bicarbonate) 1,300 mg BID PO Last administered on 19:27; Start 08/25/16 at 10:00 Calcium/Vitamin D (Oscal D 500mg/ 200uts) 1 tab BIDWMEALS PO Last administered on 08/25/16 17:35; Start 08/25/16 at 10:00 Non-Formulary Medication 1 inh BID IH ; Start 08/25/16 at 21:00; Status UNV Lactobacillus Acidophilus (Bacid, Lou-Bid) 1 tab DAILY PO Last administered on 08/25/16 11:52; Start 08/25/16 at 10:00 Multivitamins/ Calcium (Thera M Plus) 1 tab DAILY PO Last administered on 11:51; Start 08/25/16 at 10:00 Oxycodone HCl (Roxicodone) 15 mg PRN Q3HRS PRN PO PAIN; Start 08/25/16 at 09:30 Insulin Aspart (Novolog) 0-9 UNITS TIDWMEALS SQ Last administered on 08/25/16 18:38; Start 08/25/16 at 12:00 Dextrose 12.5 gm PRN Q15MIN PRN IV SEE COMMENTS; Start 08/25/16 at 09:30 Darbepoetin Aaron (Aranesp) 60 mcg WEEKLYHS SQ ; Start 08/25/16 at 21:00 Ascorbic Acid (Vitamin C) 500 mg DAILY PO Last administered on 08/25/16 11:51 ; Start 08/25/16 at 11:30 Lidocaine/Sodium Bicarbonate 20 ml 20 ml STK-MED ONCE IJ ; Start 08/25/16 at 16: 07; Stop 08/25/16 at 16:08; Status DC Sodium Chloride (Iv Sodium Chloride 0.9% 1000ml Bag) 1,000 ml @ 1,000 mls/hr Q1H PRN IV hypotension; Start 08/26/16 at 08:44; Stop 08/26/16 at 14:43 Diphenhydramine HCl (Benadryl) 25 mg 1X PRN PRN IV ITCHING; Start 08/26/16 at 08 :45; Stop 08/27/16 at 08:44 Diphenhydramine HCl (Benadryl) 25 mg 1X PRN PRN IV ITCHING; Start 08/26/16 at 08 :45; Stop 08/27/16 at 08:44 Sodium Chloride (Normal Saline Flush) 10 ml 1X PRN PRN IV AP catheter pack; Start 08/26/16 at 08:45; Stop 08/27/16 at 08:44 Sodium Chloride (Normal Saline Flush) 10 ml 1X PRN PRN IV ACETYLENE OPERATOR catheter pack; Start 08/26/16 at 08:45; Stop 08/27/16 at 08:44 Info (PHARMACY MONITORING -- do not chart) 1 each PRN DAILY PRN MC SEE COMMENTS ; Start 08/26/16 at 08:45 Info (PHARMACY MONITORING -- do not chart) 1 each PRN DAILY PRN MC SEE COMMENTS ; Start 08/26/16 at 08:45; Status UNV Active Scripts Active Midodrine Hcl 2.5 Mg Tablet 2.5 Mg PO PRN TID PRN Reported Novolog Flexpen (Insulin Aspart) 100 Unit/1 Ml Insuln.pen 3 Unit SQ TID Flomax (Tamsulosin Hcl) 0.4 Mg Cap.er.24h 0.4 Mg PO DAILY Flagyl (Metronidazole) 500 Mg Tablet 500 Mg PO TID 10 Days Duoneb 0.5-3(2.5) Mg/3 Ml (Albuterol/Ipratropium) 3 Ml Ampul.neb 3 Ml NEB Q8HRS Imodium A-D (Loperamide HCl) 2 Mg Capsule 2 Mg PO PRN Q6HRS PRN Mephyton (Phytonadione) 5 Mg Tablet 10 Mg PO DAILY Phoslo (Calcium Acetate) 667 Mg Capsule 2 Cap PO TIDWMEALS Allopurinol 100 Mg Tablet 1 Tab PO DAILY Oxycontin (Oxycodone HCl) 15 Mg Tab.er.12h 15 Mg PO BID Oxycodone Hcl 5 Mg Capsule 15 Mg PO Q3HRS PRN Oyster Shell Calcium-Vit D Tab (Calcium Carbonate/Vitamin D2) 1 Each Tablet 1 Each PO BID Acidophilus Lactobacillus (Lactobacillus Acidophilus) 1 Each Capsule 1 Each PO DAILY Glucagon Emergency Kit (Glucagon,Human Recombinant) 1 Mg Kit 1 Mg IM PRN Acetaminophen 325 Mg Tablet 650 Mg PO PRN Q4HRS PRN Sodium Bicarbonate 650 Mg Tablet 1 Tab PO BID Protonix (Pantoprazole Sodium) 40 Mg Tablet.dr 1 Tab PO BID Multi-Vitamin Daily (Multivitamin) 1 Each Tablet 1 Each PO DAILY Combivent Respimat Inhal (Ipratropium/Albuterol Sulfate) 4 Gm Aer.w.adap 1 Inh IH BID Atorvastatin Calcium 10 Mg Tablet 1 Tab PO DAILY Folic Acid 1 Mg Tablet 1 Mg PO DAILY Levothyroxine Sodium 25 Mcg Tablet 75 Mcg PO DAILYAC Vitals/I & O Vital Sign - Last 24 Hours 08/25/16 08/25/16 08/25/16 08/25/16 13:05 13:20 13:35 13:50 Temp 98.0 98.1 98.0 98.1 Pulse 82 95 84 87 Resp 06 08 12 12 B/P 102/74 100/70 97/72 99/74 08/25/16 08/25/16 08/25/16 08/25/16 14:20 15:00 16:00 16:00 Temp 98.2 98.2 98.0 98.2 98.2 98.0 Pulse 86 100 118 116 Resp 06 10 12 16 B/P 111/82 111/82 102/84 80/56 Pulse Ox 98 O2 Delivery Room Air 08/25/16 08/25/16 08/25/16 08/25/16 16:25 18:22 19:23 19:26 Temp 98.0 98.0 Pulse 125 Resp B/P 82/62 Pulse Ox 100 98 98 O2 Delivery Room Air Room Air Room Air Room Air 08/25/16 08/25/16 08/25/16 08/25/16 20:00 23:28 23:36 23:42 Resp 16 Pulse Ox 98 98 O2 Delivery Room Air Room Air Room Air Room Air 08/26/16 08/26/16 08/26/16 03:34 08:00 11:31 Temp 97.8 97.8 Pulse 94 Resp B/P 103/80 Pulse Ox 97 O2 Delivery Room Air Room Air Intake and Output 08/25/16 08/25/16 08/26/16 15:00 23:00 07:00 Intake Total 300 ml 100 ml Output Total 0 ml 0 ml Balance 300 ml 100 ml Nutrition Consultation Dietary Evaluation: Recommendations by RD: Increase Calorie Intake, Protein supplementation Comments: Increased calorie and protein needs-add. Novasource Renal protein supplement BID Rec. a daily MVT and 500 mg Vitamin C BID to aide with wound healing Encourage good PO intake Expected Outcomes/Goals: meet > 75% estimated nutrition needs no further weight loss Malnutrition Findings: Body Fat Depletion (Non Severe: Mild Depletion Reduced Cable Inspector Strength: N/A Reduced Cable Inspector Strength (Non-Sev: N/A Malnutrition related to morbid: No Weight Status: Appropriate ANISA SCHMITT MD Aug 26, 2016 12:00
[2016-08-26] MEDS ORDERED: LIDOCAINE 1% / SOD BICARB 8.4% 20 ML VIAL. IJ ONE (13:44)
--- NOTE | 2016-08-26 14:06 | PDOC2 ---
PALLIATIVE CARE Palliative Care Note Palliative Care Spoke with Blanca --patient's sister. Discussed goals and plan of care. Confirmed patient and family still want full aggressive care. Palliative Care will sign off. NESTOR ALANIZ Aug 26, 2016 14:06
[2016-08-26] MEDS ORDERED: ALBUMIN HUMAN 25% 100 ML IV ONE ×3 (14:39→15:30)
[2016-08-26] MEDS: LACTOBACILLUS ACIDOPH & BULGAR 1 TABLET. PO SCH (16:01)
[2016-08-26] MEDS: ALLOPURINOL 100 MG TABLET. PO SCH (16:01)
[2016-08-26] MEDS: DOCUSATE SODIUM 100 MG CAPSULE PO SCH ×2 (16:01→21:00)
[2016-08-26] MEDS: MULTIVITAMIN with MINERAL TABLET. PO SCH (16:01)
[2016-08-26] MEDS: FOLIC ACID 1 MG TABLET PO SCH (16:01)
[2016-08-26] MEDS: PHYTONADIONE (VIT K1) 5 MG TABLET PO SCH (16:01)
[2016-08-26] MEDS: ASCORBIC ACID 500 MG TABLET PO SCH (16:01)
[2016-08-26] MEDS: OXYCODONE ER 15 MG TAB.ER.12H. PO SCH ×2 (16:01→21:13)
[2016-08-26] MEDS: SODIUM BICARBONATE 650 MG TABLET. PO SCH ×2 (16:01→21:14)
[2016-08-26] MEDS ORDERED: ALBUMIN HUMAN 25% 50 ML IV ONE (16:15)
--- NOTE | 2016-08-26 16:33 | RAD ---
Procedure: Ultrasound guided paracentesis Clinical Indication: 56-year-old with abdominal ascites Sedation: Local anesthesia only Antibiotics: None Fluoro Time: None Contrast: Not applicable Sterility: The procedure was performed in its entirety using appropriate elements of sterile technique. Consent: The procedure was explained in its entirety to the patient or the patients designated tax representative by a member of the treatment team, including a discussion of the risks, benefits and commonly accepted alternatives to the procedure, as well as the expected consequences of no therapy whatsoever. Discussion of the risks included, but was not limited to, those that are most frequent and those that are rare but possibly severe or life-threatening, as well as the possibility of unforeseen complications. Technique and Findings: Following informed consent, the patient was prepped and draped in the usual sterile fashion. Ultrasound interrogation of the abdomen revealed abdominal ascites. A hard copy ultrasound image was recorded. 1% Lidocaine was used to achieve local anesthesia over the area of interest, and a 6 [place] [id number] catheter was advanced into the peritoneal cavity under ultrasound guidance. 9000 cc of thin yellow ascites was then withdrawn. The catheter was removed and hemostasis was achieved with manual compression. Complications: No immediate Impression: 1. Ultrasound-guided paracentesis as described
[2016-08-26] MEDS: ATORVASTATIN CALCIUM 10 MG TABLET. PO SCH (21:13)
[2016-08-26] MEDS: ZOLPIDEM 5 MG TABLET. PO PRN (21:14)
[2016-08-27 03:20] VITALS: BP 108/74
[2016-08-27] MEDS: IPRATRPIUM/ALBUTEROL 0.5/2.5MG 3 ML NEBU. NEB SCH (07:21)
[2016-08-27 07:26] VITALS: BP 110/80
[2016-08-27] MEDS: DOCUSATE SODIUM 100 MG CAPSULE PO SCH (08:29)
[2016-08-27] MEDS: LACTOBACILLUS ACIDOPH & BULGAR 1 TABLET. PO SCH (08:29)
[2016-08-27] MEDS: CALCIUM CARB/VIT D3 500/200 TABLET PO SCH (08:29)
[2016-08-27] MEDS: PHYTONADIONE (VIT K1) 5 MG TABLET PO SCH (08:29)
[2016-08-27] MEDS: CALCIUM ACETATE 667 MG CAPSULE PO SCH ×2 (08:29→12:54)
[2016-08-27] MEDS: MULTIVITAMIN with MINERAL TABLET. PO SCH (08:29)
[2016-08-27] MEDS: LEVOTHYROXINE 75 MCG TABLET PO SCH (08:29)
[2016-08-27] MEDS: ASCORBIC ACID 500 MG TABLET PO SCH (08:30)
[2016-08-27] MEDS: ALLOPURINOL 100 MG TABLET. PO SCH (08:30)
[2016-08-27] MEDS: FOLIC ACID 1 MG TABLET PO SCH (08:30)
[2016-08-27] MEDS: OXYCODONE ER 15 MG TAB.ER.12H. PO SCH (08:30)
[2016-08-27] MEDS: SODIUM BICARBONATE 650 MG TABLET. PO SCH (08:30)
[2016-08-27] MEDS: PANTOPRAZOLE 40 MG TABLET. PO SCH (08:30)
[2016-08-27] MEDS: INSULIN ASPART 300 UNITS/3 ML INSULN.PEN SQ SCH ×2 (08:41→12:00)
--- NOTE | 2016-08-27 09:11 | PDOC ---
Subjective: Subjective: Doesn't speak, nods a little when I ask if he feels better. Objective: Vital Signs: Vital Signs Date Time Temp Pulse Resp B/P Pulse Ox O2 Delivery O2 Flow Rate FiO2 08/27/16 07:26 98.3 90 18 110/80 98 Room Air 98.3 Labs: Laboratory Tests Test 08/26/16 11:34 08/26/16 16:47 08/26/16 21:30 08/27/16 08:24 Glucose (Fingerstick) 102mg/dL 112mg/dL 204mg/dL 282mg/dL PE: GEN: NAD, eating breakfast ABD: looks less distended NEURO/PSYCH: A & O 3 A/P: Cirrhosis, ascites -Hep C, alcohol -requires frequent paracentesis, last 08/26/16 (9000cc removed) -ESRD, anemia/thrombocytopenia, declines palliative care -- Improved. DC per primary. SARAVANAN KEARNEY Aug 27, 2016 09:10
[2016-08-27 10:03] VITALS: BP 78/58
--- NOTE | 2016-08-27 11:11 | PDOC ---
Renal-Progress Notes Subjective Notes Notes NONE History of Present Illness Hx of present illness BETTER Vitals Vitals Vital Signs Date Time Temp Pulse Resp B/P Pulse Ox O2 Delivery O2 Flow Rate FiO2 08/27/16 10:03 97.5 112 20 78/58 99 Room Air 97.5 Weight Weight [ ] I.O. Intake and Output Intake and Output 08/27/16 07:00 Intake Total 367 ml Output Total 9000 ml Balance -8633 ml Intake Oral 150 ml Blood Product IV Normal Saline Flush 217 ml Drainage Total 9000 ml # Bowel Movements 4 Labs Labs Laboratory Tests Test 08/26/16 11:34 08/26/16 16:47 08/26/16 21:30 08/27/16 08:24 Glucose (Fingerstick) 102mg/dL (70-99) 112mg/dL (70-99) 204mg/dL (70-99) 282mg/dL (70-99) Micro Micro Microbiology 08/24/16 Blood Culture - Preliminary, Resulted NO GROWTH AFTER 2 DAYS Review of Systems Constitutional: yes: no symptom reported Physical Exam General Appearance: no apparent distress Skin: warm Respiratory: bilateral CTA Heart: S1S2, RRR Abdomen: soft Musculoskeletal: Other Assessment Assessment IMP ESRD ANEMIA ASCITES PLAN HD TOMORROW PARACENTESIS NEEDED ADRIAN PANCHAL MD Aug 27, 2016 11:11
[2016-08-27 14:31] VITALS: BP 108/76
[2016-08-27] MEDS ORDERED: OXYC15TA PO (16:05)
== END 2016-08-27 16:14 | DRG 312 ==
LOC: ER 16:35 → 1 WEST ICU 18:20 → 5 SOUTH 08-25 18:09
PROVIDERS: ADMIT Internal Medicine; ATTEND Internal Medicine
PROC: 30233N1 Transfusion of Nonautologous Red Blood Cells into Peripheral Vein, Percutaneous Approach (ICD-10-PCS; 2016-08-25)
PROC: 0W9G30Z Drainage of Peritoneal Cavity with Drainage Device, Percutaneous Approach (ICD-10-PCS; principal; 2016-08-26)
PROC: 30233R1 Transfusion of Nonautologous Platelets into Peripheral Vein, Percutaneous Approach (ICD-10-PCS; 2016-08-26)
PROC: 5A1D00Z (ICD-10-PCS; 2016-08-26)
DX: I95.3 Hypotension of hemodialysis (principal); E43 Unspecified severe protein-calorie malnutrition; N18.6 End stage renal disease; I13.2 Hypertensive heart and chronic kidney disease with heart failure and with stage 5 chronic kidney disease, or end stage renal disease; R18.8 Other ascites; R65.10 Systemic inflammatory response syndrome (SIRS) of non-infectious origin without acute organ dysfunction; I50.32 Chronic diastolic (congestive) heart failure; J98.11 Atelectasis; I42.9 Cardiomyopathy, unspecified; B19.20 Unspecified viral hepatitis C without hepatic coma; D69.6 Thrombocytopenia, unspecified; D63.8 Anemia in other chronic diseases classified elsewhere; D69.59 Other secondary thrombocytopenia; E03.9 Hypothyroidism, unspecified; E11.22 Type 2 diabetes mellitus with diabetic chronic kidney disease; E21.3 Hyperparathyroidism, unspecified; E78.00 Pure hypercholesterolemia, unspecified; E78.5 Hyperlipidemia, unspecified; E87.6 Hypokalemia; F03.90 Unspecified dementia, unspecified severity, without behavioral disturbance, psychotic disturbance, mood disturbance, and anxiety; I48.91 Unspecified atrial fibrillation; J44.9 Chronic obstructive pulmonary disease, unspecified; K21.9 Gastro-esophageal reflux disease without esophagitis; K72.90 Hepatic failure, unspecified without coma; M19.90 Unspecified osteoarthritis, unspecified site; F14.10 Cocaine abuse, uncomplicated; K74.60 Unspecified cirrhosis of liver; M10.9 Gout, unspecified; Z82.49 Family history of ischemic heart disease and other diseases of the circulatory system; Z99.2 Dependence on renal dialysis; Z68.20 Body mass index [BMI] 20.0-20.9, adult
CPT/HCPCS: 36415; 49083; 71010; 76705; 80048; 80053; 82140; 82947; 83605; 83690; 83880; 84484; 85027; 85610; 86850; 86900; 86901; 86920; 87040; 87324; 87641; 93005; 94250; 94640; 94760; 96361; 96374; J1815; J2270; J7040; J7620; P9016; P9035; P9046; 97530; 99291-25

== ENCOUNTER 2016-08-28 16:31 | Inpatient (IN) | payer OTHER ==
[~2016-08-28] VITALS: Ht 180.3 cm; Wt 65.4 kg
[~2016-08-28 16:31] MED LIST changes: +IPRA3AMP NEB; +METR500T PO; +OXYC15TA PO; +TAMS0.4C97 PO
[2016-08-28] MEDS ORDERED: VANCOMYCIN 2 GM in IV NORMAL SALINE 500ML BAG 500 ML IV ONE (18:00)
[2016-08-28] MEDS ORDERED: PIPERACILLIN/TAZOBACTAM 3.375 GM in IV NORMAL SALINE 50ML 50 ML IV SCH (18:00)
[2016-08-28] MEDS ORDERED: HYDROCODONE/APAP 5/325MG TABLET. PO ONE (18:00)
[2016-08-28] MEDS ORDERED: PIP/TAZO PER PHARMACY MC PRN (18:00)
[2016-08-28 18:03] LABS: BASO % 1 % (0-3); EOS % 1 % (0-3); HEMATOCRIT 32.1 % (39.0-53.0); LYMPH # 0.8 x10^3/uL (1.0-4.8); LYMPH % 18 % (24-48); MEAN CORPUSCULAR HEMOGLOBIN 28 pg (25-35); MEAN CORPUSCULAR HGB CONC 31 g/dL (31-37); MEAN CORPUSCULAR VOLUME 89 fL (79-100); MONO % 8 % (0-9); NEUT % 73 % (31-73); PLATELET COUNT 40 x10^3/uL (140-400); RED BLOOD COUNT 3.62 x10^6/uL (4.30-5.70); RED CELL DISTRIBUTION WIDTH 19.9 % (11.5-14.5); WHITE BLOOD COUNT 4.6 x10^3/uL (4.0-11.0)
[2016-08-28 18:08] LABS: CALCIUM 7.9 mg/dL (8.5-10.1); CREATININE 4.9 mg/dL (0.7-1.3); GFR 14.8; POTASSIUM 3.1 mmol/L (3.5-5.1)
[2016-08-28 18:14] LABS: ALBUMIN 2.6 g/dL (3.4-5.0); ALBUMIN/GLOBULIN RATIO 0.6 (1.0-1.7); TOTAL BILIRUBIN 0.5 mg/dL (0.2-1.0); TOTAL PROTEIN 7.2 g/dL (6.4-8.2)
[2016-08-28] MEDS: PIPERACILLIN/TAZOBACTAM 2.25 GM in IV NORMAL SALINE 50ML 50 ML IV SCH (19:05)
--- NOTE | 2016-08-28 19:10 | RAD ---
PROCEDURE Right upper extremity venous duplex study 08/28/2016 HISTORY Right arm swelling and redness. TECHNIQUE Using a combination of real-time ultrasound imaging and color flow and pulse Doppler imaging techniques along with graded compression and augmentation, duplex evaluation of the major venous structures of the right upper extremity was performed. Multiple images were obtained. FINDINGS There is no sonographic evidence of venous thrombosis involving the visualized venous structures of the right upper extremity. The right subclavian and right internal jugular veins are patent. Edema is seen within the right antecubital fossa. IMPRESSION There is no sonographic evidence of deep venous thrombosis involving the visualized deep venous structures of the right upper extremity. Electronically signed by: Kimo Zepeda MD (Aug 28, 2016 19:08:44)
--- NOTE | 2016-08-28 19:24 | PHYS DOC ---
Past Medical History Past Medical History: Anemia, Arthritis, CHF, Diabetes-Type II, GERD, High Cholesterol, Hypertension, Hypothyroid, Hepatitis, Renal Failure, Other Additional Past Medical Histor: Cirrhosis liver,gout,cardiomyopathy,hx drug & Etoh use,ASCITES,C-DIFF, HEPC Past Surgical History: Other Additional Past Surgical Histo: Rt chest dialysis shunt Alcohol Use: Sober Drug Use: Cocaine, Marijuana Adult General Chief Complaint Chief Complaint: HYPOTENSION HPI HPI Patient is a 56 year old male with extensive past medical history who presents from [facility] complaints of hypotension, missed dialysis today (due to hypotension), and redness and swelling in right upper extremity. Patient reports he is feeling well other than chills and some pain in his right forearm. He is unsure how long his arm has been red and swollen, however says he believes it is related to when he was stuck in that arm with an IV recently. He denies any chest discomfort or shortness of breath. No other acute complaints. Review of Systems Review of Systems Constitutional: Chills Eyes: Denies change in visual acuity or eye pain HENT: Denies nasal congestion or sore throat Respiratory: Denies cough or shortness of breath Cardiovascular: Denies chest pain GI: Denies abdominal pain, nausea, vomiting, bloody stools or diarrhea : Denies dysuria or hematuria Musculoskeletal: RUE redness and swelling Integument: Denies rash or skin lesions Neurologic: Denies headache, focal weakness or sensory changes Current Medications Current Medications Current Medications Medications (Trade) Dose Ordered Sig/Madi Start Time Stop Time Status Last Admin Dose Admin Acetaminophen/ Hydrocodone Bitart 1 tab 1 tab 1X ONCE 08/28/16 18:00 08/28/16 18:01 DC 08/28/16 19:05 1 TAB Piperacillin Sod/ Tazobactam Sod (Zosyn Per Pharmacy) 1 each PRN DAILY PRN 08/28/16 18:00 Piperacillin Sod/ Tazobactam Sod 3.375 gm/Sodium Chloride 50 ml @ 100 mls/hr Q6HRS 08/28/16 18:00 08/28/16 18:01 DC Piperacillin Sod/ Tazobactam Sod/ Sodium Chloride (Zosyn/Iv Sodium Chloride 0.9% 50ml) 50 ml @ 100 mls/hr Q8HRS 08/28/16 18:01 08/28/16 19:05 100 MLS/HR Vancomycin HCl (Vanco Per Pharmacy) 1 each PRN DAILY PRN 08/28/16 18:00 08/28/16 19:57 1 EACH Vancomycin HCl 2 gm/Sodium Chloride 500 ml @ 250 mls/hr 1X ONCE 08/28/16 18:00 08/28/16 19:59 DC 08/28/16 20:37 250 MLS/HR Allergies Allergies Allergies Coded Allergies Type Severity Reaction Last Updated Verified I S O L A T I O N *CONTACT* Allergy Unknown C-DIFF ISOLATION 06/23/16 Yes No Known Medication Allergies Allergy Unknown 06/24/16 Yes Physical Exam Physical Exam Constitutional: Well developed, well nourished, no acute distress, non-toxic appearance HENT: Normocephalic, atraumatic, bilateral external ears normal Eyes: EOMI, conjunctiva normal, no discharge Neck: Normal range of motion, no stridor Cardiovascular: Heart rate normal, regular rhythm, no murmur Lungs & Thorax: Bilateral breath sounds clear to auscultation Abdomen: Bowel sounds normal, soft, non-distended, no TTP Skin: Warm, dry, no erythema, no rash Extremities: RUE (mostly distal to elbow) red, warm to touch, swollen; 2+ radial pulse, motor function preserved Neurologic: Alert and oriented X 3, no gross deficits noted Current Patient Data Vital Signs Vital Signs Date Time Temp Pulse Resp B/P Pulse Ox O2 Delivery O2 Flow Rate FiO2 08/28/16 19:22 125 18 112/88 99 Room Air 08/28/16 16:35 98.5 98.5 Lab Values Laboratory Tests Test 08/28/16 17:15 08/28/16 18:10 White Blood Count 4.6x10^3/uL (4.0-11.0) Red Blood Count 3.62x10^6/uL (4.30-5.70) L Hemoglobin 10.0g/dL (13.0-17.5) L Hematocrit 32.1% (39.0-53.0) L Mean Corpuscular Volume 89fL (79-100) Mean Corpuscular Hemoglobin 28pg (25-35) Mean Corpuscular Hemoglobin Concent 31g/dL (31-37) Red Cell Distribution Width 19.9% (11.5-14.5) H Platelet Count 40x10^3/uL (140-400) L Neutrophils (%) (Auto) 73% (31-73) Lymphocytes (%) (Auto) 18% (24-48) L Monocytes (%) (Auto) 8% (0-9) Eosinophils (%) (Auto) 1% (0-3) Basophils (%) (Auto) 1% (0-3) Neutrophils # (Auto) 3.3x10^3uL (1.8-7.7) Lymphocytes # (Auto) 0.8x10^3/uL (1.0-4.8) L Monocytes # (Auto) 0.3x10^3/uL (0.0-1.1) Eosinophils # (Auto) 0.0x10^3/uL (0.0-0.7) Basophils # (Auto) 0.0x10^3/uL (0.0-0.2) Sodium Level 143mmol/L (136-145) Potassium Level 3.1mmol/L (3.5-5.1) L Chloride Level 105mmol/L (98-107) Carbon Dioxide Level 26mmol/L (21-32) Anion Gap 12 (6-14) Blood Urea Nitrogen 28mg/dL (8-26) H Creatinine 4.9mg/dL (0.7-1.3) H Estimated GFR (Cockcroft-Gault) 14.8 BUN/Creatinine Ratio 6 (6-20) Glucose Level 302mg/dL (70-99) H Calcium Level 7.9mg/dL (8.5-10.1) L Total Bilirubin 0.5mg/dL (0.2-1.0) Aspartate Amino Transferase (AST) 29U/L (15-37) Alanine Aminotransferase (ALT) 27U/L (16-63) Alkaline Phosphatase 268U/L (46-116) H Total Protein 7.2g/dL (6.4-8.2) Albumin 2.6g/dL (3.4-5.0) L Albumin/Globulin Ratio 0.6 (1.0-1.7) L Lactic Acid Level 1.9mmol/L (0.4-2.0) Laboratory Tests 08/28/16 17:15 Laboratory Tests 08/28/16 17:15 EKG EKG [] Radiology/Procedures Radiology/Procedures RUE US: IMPRESSION There is no sonographic evidence of deep venous thrombosis involving the visualized deep venous structures of the right upper extremity. CXR (my read): Linear opacity L lower lung field Course & Med Decision Making Course & Med Decision Making Pertinent Labs and Imaging studies reviewed. (See chart for details) Patient is 56-year-old male who presents with right upper extremity pain and swelling, missed dialysis due to hypotension. The pressure okay on arrival to the ED. Will obtain ultrasound, chest x-ray, labs to evaluate. Oral pain meds ordered for patient comfort. Given dialysis status and residence in assisted , will cover with broad-spectrum antibiotics for suspected cellulitis in right arm. Labs notable for baseline anemia, hypokalemia (will not replace as he is dialysis patient), elevated alk phos. Discussed with Dr. Thomas, will admit under his care for further evaluation and treatment. Dragon Disclaimer Dragon Disclaimer This electronic medical record was generated, in whole or in part, using a voice recognition dictation system. Departure Departure Impression: Primary Impression: Cellulitis Additional Impression: Dialysis patient Disposition: ADMITTED INPATIENT Admitting Physician: Manuel Thomas Condition: STABLE Referrals: ELIZABETH COMER MD (PCP) Problem Qualifiers CARMENCITA MARTINEZ MD Aug 28, 2016 19:24
[2016-08-28] MEDS ORDERED: ONDANSETRON PF 4 MG/2 ML VIAL. IV PRN (19:45)
[2016-08-28] MEDS ORDERED: ACETAMINOPHEN 325 MG TABLET. PO PRN (19:45)
[2016-08-28] MEDS ORDERED: MORPHINE SULFATE 2 MG/ML DISP.SYRIN. IV PRN (19:45)
[2016-08-28] MEDS ORDERED: DEXTROSE 50% 25 GM / 50ML DISP.SYRIN. IV PRN (19:45)
[2016-08-28] MEDS: VANCOMYCIN PER PHARMACY MC PRN (19:57)
--- NOTE | 2016-08-28 21:17 | ACF ---
Admit Criteria Forms Admit Criteria Forms Admit Criteria Forms CELLULITIS Clinical Indications for Admission to Inpatient Care (Place 'X' for any and all applicable criteria): Admission is indicated for ANY ONE of the following(1)(2)(3)(4)(5): [ ]I. Limb-threatening infection [ ]II. High-risk comorbid condition as indicated by ANY ONE of the following: [ ]a) Uncontrolled diabetes (eg, HbA1c greater than 10% (0.1)) [ ]b) Cirrhosis [ ]c) Neutropenia [ ]d) Asplenia [ ]e) Immunosuppression [ ]f) Symptomatic heart failure [ ]III. Failure of outpatient therapy as indicated by ALL of the following: [ ]a) Progression or no improvement after adequate trial (minimum of 48 hours, with longer period for stable lower extremity infection) [ ]b) Adequate antibiotic regimen as indicated by use of ANY ONE of the following: [ ]i) First-generation cephalosporin (e.g., cephalexin) [ ]ii) Antistaphylococcal penicillin (e.g., dicloxacillin) [ ]iii) Penicillin-allergic patient regimen (clindamycin, extended-spectrum fluoroquinolone, or doxycycline) [ ]iv) Resistant organism (eg, methicillin-resistant Staphylococcus aureus) regimen (6) [ ]c) Outpatient intravenous therapy regimen is not appropriate due to ANY ONE of the following. (7)(8)(9)(10): [ ]i) It was tried and was not successful (eg, progression of infection). [ ]ii) It is not available or cannot be arranged in a clinically appropriate time frame (e.g., the next day). [ ]iii) Clinical presentation (eg, acuity of infection, rapidity of progression, confirmed or suspected bacteremia) is judged to require ALL of the following: [ ]1) Immediate initiation of intravenous therapy ( eg, cannot wait for next day) [ ]2) Intensity of patient monitoring and observation (eg, vital sign measurement, checks for infection progression) that cannot be provided at other than inpatient level of care [ ]IV. Mental status changes [ ]V. Bacteremia [X]. Hemodynamic instability [ ]VII. Suspected necrotizing soft tissue infection (e.g., gas in tissue)(11)( 12) [ ]VIII. Orbital infection (13)(14) [ ]IX. Associated surgical procedure (e.g., abscess drainage, debridement) not amenable to outpatient, emergency department, or observation care [ ]X. Cutaneous gangrene [ ]XI. High fever (temperature greater than 39.5 degrees C (103.1 degrees F) (oral)) not responsive to outpatient, emergency department, or observation care therapy [ ]XIII. Inpatient admission required rather than observation care (Also use Cellulitis: Observation Care as appropriate) because of ANY ONE of the following : [ ]a) Periorbital or perineal infection that is severe or worsening [ ]b) Severe pain requiring acute inpatient management [ ]c) IV fluid to replace significant ongoing (e.g., for over 24 hours) losses (greater than 3L/m2 per day) [ ]d) Compartment syndrome monitoring (17) [ ]e) Strict or protective (eg, laminar flow) isolation [ ]f) Urgent debridement or skin grafting [ ]g) Bone or joint debridement [ ]h) Immediate inpatient surgery [ ]i) Other condition, treatment or monitoring requiring inpatient admission Extended stay beyond goal length of stay may be needed for (1)(18): [ ]a) Necrotizing soft tissue infection or fasciitis [ ]b) Gram-negative infection [ ]c) Methicillin-resistant Staphylococcal aureus (MRSA) infection [ ]d) Peripheral venous insufficiency with cellulitis [ ]e) Extensive edema [ ]f) Sepsis or continued Hemodynamic instability [ ]g) Continued high fever or mental status change [ ]h) Bacteremia [ ]i) Active serious comorbid conditions ( eg, heart failure, renal insufficiency) The original [facility] content created by [employer] has been revised. The portions of the content which have been revised are identified through the use of italic text or in bold, and [facility] has neither reviewed nor approved the modified material. All other unmodified content is copyright [facility] Please see references footnoted in the original [facility] edition 2016 JERED PADGETT Aug 28, 2016 21:17
[2016-08-28 21:38] VITALS: BP 103/73
[2016-08-29] VITALS (7 sets, daily range): BP systolic 59–99; BP diastolic 40–70
--- NOTE | 2016-08-29 00:40 | HP ---
ADMIT DATE: 08/28/2016 CHIEF COMPLAINT: Hypotension, right arm pain. HISTORY OF PRESENT ILLNESS: The patient is a pleasant 56-year-old male, well known to our service. He has end-stage liver disease and end-stage renal disease. We just discharged him a couple of days. We actually had done a paracentesis on him. Today, he presents with right arm pain and hypotension. He apparently missed dialysis today because his pressure was too low. The right arm is also red and swollen. I have discussed the case with the ER physician. We are going to start him on IV antibiotics and consult Infectious Disease. PAST MEDICAL HISTORY: End-stage liver disease, paracentesis, end-stage renal disease on dialysis, CHF, diabetes, hypertension, hyperlipidemia, GERD, hypothyroidism, hepatitis, cirrhosis, cardiomyopathy, alcohol, hepatitis C, right chest shunt. ALLERGIES: None. FAMILY HISTORY: ____ Coronary artery disease. SOCIAL HISTORY: He used to smoke and drink and used cocaine. I do not think he uses anymore. MEDICATIONS: Reviewed, please refer to the MRAD. REVIEW OF SYSTEMS: GENERAL: No history of weight change, weakness or fevers. SKIN: No bruising, hair changes or rashes. EYES: No blurred, double or loss of vision. NOSE AND THROAT: No history of nosebleeds, hoarseness or sore throat. HEART: No history of palpitations, chest pain or shortness of breath on exertion. LUNGS: Denies cough, hemoptysis, wheezing or shortness of breath. GASTROINTESTINAL: Denies changes in appetite, nausea, vomiting, diarrhea or constipation. GENITOURINARY: No history of frequency, urgency, hesitancy or nocturia. NEUROLOGIC: Denies history of numbness, tingling, tremor or weakness. PSYCHIATRIC: No history of panic, anxiety or depression. ENDOCRINE: No history of heat or cold intolerance, polyuria or polydipsia. EXTREMITIES: He complains of right arm pain. PHYSICAL EXAMINATION: VITAL SIGNS: Temperature afebrile, pulse 110, respirations 18, blood pressure 112/88. GENERAL: He is alert, in the ER. HEART: Normal S1, S2. LUNGS: Clear. ABDOMEN: Soft, positive bowel sounds, although tender, distended. He does have some ascites. ENDOCRINE: No thyromegaly. LYMPHATICS: No cervical nodes. HEMATOPOIETIC: The right arm is quite swollen with some erythema. LABORATORY DATA: White count 4, hemoglobin 10, platelets 40. Electrolytes: Sodium 143, potassium 3.1, chloride 105, bicarbonate 26, BUN 28, creatinine 4.9, glucose 302. ASSESSMENT AND PLAN: Right arm cellulitis. The patient has been administered IV vancomycin and IV Zosyn. Consult, Nephrology. Consult Infectious Disease. Resume home medicines. LINDA ABRAHAM DO DR: JUAN/melissa JOB#: [id number] / [id number]
[2016-08-29] MEDS: PIPERACILLIN/TAZOBACTAM 2.25 GM in IV NORMAL SALINE 50ML 50 ML IV SCH ×5 (00:56→22:00)
[2016-08-29 05:58] LABS: BASO % 1 % (0-3); EOS % 1 % (0-3); HEMATOCRIT 24.5 % (39.0-53.0); HEMOGLOBIN 7.7 g/dL (13.0-17.5); LYMPH # 0.8 x10^3/uL (1.0-4.8); LYMPH % 21 % (24-48); MEAN CORPUSCULAR HEMOGLOBIN 28 pg (25-35); MEAN CORPUSCULAR HGB CONC 31 g/dL (31-37); MEAN CORPUSCULAR VOLUME 89 fL (79-100); MONO % 4 % (0-9); NEUT % 72 % (31-73); PLATELET COUNT 57 x10^3/uL (140-400); RED BLOOD COUNT 2.74 x10^6/uL (4.30-5.70); RED CELL DISTRIBUTION WIDTH 19.3 % (11.5-14.5); WHITE BLOOD COUNT 3.9 x10^3/uL (4.0-11.0)
[2016-08-29 06:11] LABS: CALCIUM 7.4 mg/dL (8.5-10.1); CREATININE 5.1 mg/dL (0.7-1.3); GFR 14.2
[2016-08-29 06:17] LABS: POTASSIUM 2.8 mmol/L (3.5-5.1)
[2016-08-29] MEDS: INSULIN ASPART 300 UNITS/3 ML INSULN.PEN SQ SCH ×4 (08:39→17:00)
[2016-08-29] MEDS ORDERED: ONDANSETRON PF 4 MG/2 ML VIAL. IV PRN (08:51)
[2016-08-29] MEDS ORDERED: NON FORMULARY ITEM (Ipratropium/Albuterol Sulfate (Combivent Respimat Inhal) 1 INH) IH SCH (09:00)
[2016-08-29] MEDS ORDERED: ATORVASTATIN CALCIUM 10 MG TABLET. PO SCH (09:00)
[2016-08-29] MEDS ORDERED: INSULIN ASPART 300 UNITS/3 ML INSULN.PEN SQ SCH (09:00)
--- NOTE | 2016-08-29 09:43 | RAD ---
Examination: Single frontal view the chest. History: History of weakness, fatigue Comparison: 08/24/2016 Findings: Low lung volumes and technique accentuate heart size and pulmonary vascularity. A right-sided dialysis catheter is unchanged. Linear bibasal lung airspace opacities likely atelectasis or scarring changes. Impression: 1. Linear bibasal lung airspace opacities likely atelectasis or scarring changes.
[2016-08-29] MEDS ORDERED: ALBUMIN HUMAN 25% 100 ML IV ONE (10:30)
--- NOTE | 2016-08-29 10:30 | PDOC ---
PROGRESS NOTES Chief Complaint Chief Complaint HYPOTENSION, CHRONIC RECENT SIRS,. no sepsis REcurrent Ascites, recurrent, hepatitis C, cirrhosis: s/p large volume paracentesis 3. End-stage renal disease, on hemodialysis. 4. Severe thrombocytopenia secondary to cirrhosis. 5. Diabetes mellitus.: SSI 6. Diastolic heart failure, chronic, stable. 7. Hypertension, currently hypotensive, 8. Hypothermia. 9. Severe malnutrition. 10. History of substance abuse, cocaine, marijuana, and ethyl alcohol. 11. Anemia with chronic disease and cirrhosis. 12. low BP, baseline 13. Hypokalemia 14. SEVERE PCM History of Present Illness History of Present Illness Refuses to talk to me, but looks me in the eye and gives me a nasty look I think he is tired of all his sickness but is not ready for hospice - n ot ready to "" - the last encounter I had with him in the ER on Aug 27? - very recently Was dcd few days ago and readmitted for hypotension (KNOWN TO HIM) - on midodrine I am unsure if he was dcd to HH He needs SNU or HH - most likely he refused - but he is back again ROS: cant be obtained - pt unccoperative ABd - ascites - but not tensed, better than last admission He did get paracentesis this last admit PLAn: CPM NOT READY FOR HOSPICE REMAINS A FULL CODE Monitor ascites, tap if needed for comfort MIght need- most likely will need albumin - will see BP and if he received any this last admit PT/OT if he will allow Vitals Vitals Vital Signs Date Time Temp Pulse Resp B/P Pulse Ox O2 Delivery O2 Flow Rate FiO2 08/29/16 07:00 98.7 85 20 97/70 100 Room Air 98.7 Physical Exam Lungs: Clear Labs LABS Laboratory Tests Test 08/28/16 17:15 08/28/16 18:10 08/29/16 05:20 White Blood Count 4.6x10^3/uL (4.0-11.0) 3.9x10^3/uL (4.0-11.0) Red Blood Count 3.62x10^6/uL (4.30-5.70) 2.74x10^6/uL (4.30-5.70) Hemoglobin 10.0g/dL (13.0-17.5) 7.7g/dL (13.0-17.5) Hematocrit 32.1% (39.0-53.0) 24.5% (39.0-53.0) Mean Corpuscular Volume 89fL (79-100) 89fL (79-100) Mean Corpuscular Hemoglobin 28pg (25-35) 28pg (25-35) Mean Corpuscular Hemoglobin Concent 31g/dL (31-37) 31g/dL (31-37) Red Cell Distribution Width 19.9% (11.5-14.5) 19.3% (11.5-14.5) Platelet Count 40x10^3/uL (140-400) 57x10^3/uL (140-400) Neutrophils (%) (Auto) 73% (31-73) 72% (31-73) Lymphocytes (%) (Auto) 18% (24-48) 21% (24-48) Monocytes (%) (Auto) 8% (0-9) 4% (0-9) Eosinophils (%) (Auto) 1% (0-3) 1% (0-3) Basophils (%) (Auto) 1% (0-3) 1% (0-3) Neutrophils # (Auto) 3.3x10^3uL (1.8-7.7) 2.8x10^3uL (1.8-7.7) Lymphocytes # (Auto) 0.8x10^3/uL (1.0-4.8) 0.8x10^3/uL (1.0-4.8) Monocytes # (Auto) 0.3x10^3/uL (0.0-1.1) 0.2x10^3/uL (0.0-1.1) Eosinophils # (Auto) 0.0x10^3/uL (0.0-0.7) 0.1x10^3/uL (0.0-0.7) Basophils # (Auto) 0.0x10^3/uL (0.0-0.2) 0.0x10^3/uL (0.0-0.2) Sodium Level 143mmol/L (136-145) 145mmol/L (136-145) Potassium Level 3.1mmol/L (3.5-5.1) 2.8mmol/L (3.5-5.1) Chloride Level 105mmol/L (98-107) 112mmol/L (98-107) Carbon Dioxide Level 26mmol/L (21-32) 23mmol/L (21-32) Anion Gap 12 (6-14) 10 (6-14) Blood Urea Nitrogen 28mg/dL (8-26) 29mg/dL (8-26) Creatinine 4.9mg/dL (0.7-1.3) 5.1mg/dL (0.7-1.3) Estimated GFR (Cockcroft-Gault) 14.8 14.2 BUN/Creatinine Ratio 6 (6-20) Glucose Level 302mg/dL (70-99) 175mg/dL (70-99) Calcium Level 7.9mg/dL (8.5-10.1) 7.4mg/dL (8.5-10.1) Total Bilirubin 0.5mg/dL (0.2-1.0) Aspartate Amino Transf (AST/SGOT) 29U/L (15-37) Alanine Aminotransferase (ALT/SGPT) 27U/L (16-63) Alkaline Phosphatase 268U/L (46-116) Total Protein 7.2g/dL (6.4-8.2) Albumin 2.6g/dL (3.4-5.0) Albumin/Globulin Ratio 0.6 (1.0-1.7) Lactic Acid Level 1.9mmol/L (0.4-2.0) Assessment and Plan Assessmemt and Plan Problems Medical Problems: (1) Cellulitis Status: Acute (2) Dialysis patient Status: Acute Problems: Comment Review of Relevant I have reviewed the following items дмитрий (where applicable) has been applied. Labs Laboratory Tests Test 08/28/16 17:15 08/28/16 18:10 08/29/16 05:20 White Blood Count 4.6x10^3/uL (4.0-11.0) 3.9x10^3/uL (4.0-11.0) Red Blood Count 3.62x10^6/uL (4.30-5.70) 2.74x10^6/uL (4.30-5.70) Hemoglobin 10.0g/dL (13.0-17.5) 7.7g/dL (13.0-17.5) Hematocrit 32.1% (39.0-53.0) 24.5% (39.0-53.0) Mean Corpuscular Volume 89fL (79-100) 89fL (79-100) Mean Corpuscular Hemoglobin 28pg (25-35) 28pg (25-35) Mean Corpuscular Hemoglobin Concent 31g/dL (31-37) 31g/dL (31-37) Red Cell Distribution Width 19.9% (11.5-14.5) 19.3% (11.5-14.5) Platelet Count 40x10^3/uL (140-400) 57x10^3/uL (140-400) Neutrophils (%) (Auto) 73% (31-73) 72% (31-73) Lymphocytes (%) (Auto) 18% (24-48) 21% (24-48) Monocytes (%) (Auto) 8% (0-9) 4% (0-9) Eosinophils (%) (Auto) 1% (0-3) 1% (0-3) Basophils (%) (Auto) 1% (0-3) 1% (0-3) Neutrophils # (Auto) 3.3x10^3uL (1.8-7.7) 2.8x10^3uL (1.8-7.7) Lymphocytes # (Auto) 0.8x10^3/uL (1.0-4.8) 0.8x10^3/uL (1.0-4.8) Monocytes # (Auto) 0.3x10^3/uL (0.0-1.1) 0.2x10^3/uL (0.0-1.1) Eosinophils # (Auto) 0.0x10^3/uL (0.0-0.7) 0.1x10^3/uL (0.0-0.7) Basophils # (Auto) 0.0x10^3/uL (0.0-0.2) 0.0x10^3/uL (0.0-0.2) Sodium Level 143mmol/L (136-145) 145mmol/L (136-145) Potassium Level 3.1mmol/L (3.5-5.1) 2.8mmol/L (3.5-5.1) Chloride Level 105mmol/L (98-107) 112mmol/L (98-107) Carbon Dioxide Level 26mmol/L (21-32) 23mmol/L (21-32) Anion Gap 12 (6-14) 10 (6-14) Blood Urea Nitrogen 28mg/dL (8-26) 29mg/dL (8-26) Creatinine 4.9mg/dL (0.7-1.3) 5.1mg/dL (0.7-1.3) Estimated GFR (Cockcroft-Gault) 14.8 14.2 BUN/Creatinine Ratio 6 (6-20) Glucose Level 302mg/dL (70-99) 175mg/dL (70-99) Calcium Level 7.9mg/dL (8.5-10.1) 7.4mg/dL (8.5-10.1) Total Bilirubin 0.5mg/dL (0.2-1.0) Aspartate Amino Transf (AST/SGOT) 29U/L (15-37) Alanine Aminotransferase (ALT/SGPT) 27U/L (16-63) Alkaline Phosphatase 268U/L (46-116) Total Protein 7.2g/dL (6.4-8.2) Albumin 2.6g/dL (3.4-5.0) Albumin/Globulin Ratio 0.6 (1.0-1.7) Lactic Acid Level 1.9mmol/L (0.4-2.0) Laboratory Tests Test 08/28/16 17:15 08/28/16 18:10 08/29/16 05:20 White Blood Count 4.6x10^3/uL (4.0-11.0) 3.9x10^3/uL (4.0-11.0) Red Blood Count 3.62x10^6/uL (4.30-5.70) 2.74x10^6/uL (4.30-5.70) Hemoglobin 10.0g/dL (13.0-17.5) 7.7g/dL (13.0-17.5) Hematocrit 32.1% (39.0-53.0) 24.5% (39.0-53.0) Mean Corpuscular Volume 89fL (79-100) 89fL (79-100) Mean Corpuscular Hemoglobin 28pg (25-35) 28pg (25-35) Mean Corpuscular Hemoglobin Concent 31g/dL (31-37) 31g/dL (31-37) Red Cell Distribution Width 19.9% (11.5-14.5) 19.3% (11.5-14.5) Platelet Count 40x10^3/uL (140-400) 57x10^3/uL (140-400) Neutrophils (%) (Auto) 73% (31-73) 72% (31-73) Lymphocytes (%) (Auto) 18% (24-48) 21% (24-48) Monocytes (%) (Auto) 8% (0-9) 4% (0-9) Eosinophils (%) (Auto) 1% (0-3) 1% (0-3) Basophils (%) (Auto) 1% (0-3) 1% (0-3) Neutrophils # (Auto) 3.3x10^3uL (1.8-7.7) 2.8x10^3uL (1.8-7.7) Lymphocytes # (Auto) 0.8x10^3/uL (1.0-4.8) 0.8x10^3/uL (1.0-4.8) Monocytes # (Auto) 0.3x10^3/uL (0.0-1.1) 0.2x10^3/uL (0.0-1.1) Eosinophils # (Auto) 0.0x10^3/uL (0.0-0.7) 0.1x10^3/uL (0.0-0.7) Basophils # (Auto) 0.0x10^3/uL (0.0-0.2) 0.0x10^3/uL (0.0-0.2) Sodium Level 143mmol/L (136-145) 145mmol/L (136-145) Potassium Level 3.1mmol/L (3.5-5.1) 2.8mmol/L (3.5-5.1) Chloride Level 105mmol/L (98-107) 112mmol/L (98-107) Carbon Dioxide Level 26mmol/L (21-32) 23mmol/L (21-32) Anion Gap 12 (6-14) 10 (6-14) Blood Urea Nitrogen 28mg/dL (8-26) 29mg/dL (8-26) Creatinine 4.9mg/dL (0.7-1.3) 5.1mg/dL (0.7-1.3) Estimated GFR (Cockcroft-Gault) 14.8 14.2 BUN/Creatinine Ratio 6 (6-20) Glucose Level 302mg/dL (70-99) 175mg/dL (70-99) Calcium Level 7.9mg/dL (8.5-10.1) 7.4mg/dL (8.5-10.1) Total Bilirubin 0.5mg/dL (0.2-1.0) Aspartate Amino Transf (AST/SGOT) 29U/L (15-37) Alanine Aminotransferase (ALT/SGPT) 27U/L (16-63) Alkaline Phosphatase 268U/L (46-116) Total Protein 7.2g/dL (6.4-8.2) Albumin 2.6g/dL (3.4-5.0) Albumin/Globulin Ratio 0.6 (1.0-1.7) Lactic Acid Level 1.9mmol/L (0.4-2.0) Medications Current Medications Vancomycin HCl (Vanco Per Pharmacy) 1 each PRN DAILY PRN MC SEE COMMENTS Last administered on 08/28/16 19:57; Start 08/28/16 at 18:00 Piperacillin Sod/ Tazobactam Sod (Zosyn Per Pharmacy) 1 each PRN DAILY PRN MC SEE COMMENTS; Start 08/28/16 at 18:00 Acetaminophen/ Hydrocodone Bitart 1 tab 1 tab 1X ONCE PO Last administered on 08/28/16 19:05; Start 08/28/16 at 18:00; Stop 08/28/16 at 18:01; Status DC Vancomycin HCl 2 gm/Sodium Chloride 500 ml @ 250 mls/hr 1X ONCE IV Last administered on 08/28/16 20:37; Start 08/28/16 at 18:00; Stop 08/28/16 at 19:59; Status DC Piperacillin Sod/ Tazobactam Sod 3.375 gm/Sodium Chloride 50 ml @ 100 mls/hr Q6HRS IV ; Start 08/28/16 at 18:00; Stop 08/28/16 at 18:01; Status DC Piperacillin Sod/ Tazobactam Sod/ Sodium Chloride (Zosyn/Iv Sodium Chloride 0.9 % 50ml) 50 ml @ 100 mls/hr Q8HRS IV Last administered on 08/29/16 06:08; Start 08/28/16 at 18:01 Ondansetron HCl (Zofran) 4 mg PRN Q8HRS PRN IV NAUSEA/VOMITING; Start 08/28/16 at 19:45; Stop 08/29/16 at 08:53; Status DC Morphine Sulfate 2 mg PRN Q2HR PRN IV PAIN; Start 08/28/16 at 19:45; Stop at 19:44 Acetaminophen (Tylenol) 650 mg PRN Q4HRS PRN PO FEVER; Start 08/28/16 at 19:45; Stop 08/29/16 at 19:44 Insulin Aspart (Novolog) 0-7 UNITS TIDWMEALS SQ Last administered on 08/29/16 08:39; Start 08/29/16 at 08:00 Dextrose 12.5 gm PRN Q15MIN PRN IV SEE COMMENTS; Start 08/28/16 at 19:45 Vancomycin HCl 1 each 1X ONCE MC ; Start 08/30/16 at 21:00; Stop 08/30/16 at 21: 01 Ondansetron HCl (Zofran) 4 mg PRN Q6HRS PRN IV NAUSEA/VOMITING; Start 08/29/16 at 08:51 Allopurinol (Zyloprim) 100 mg DAILY PO ; Start 08/29/16 at 09:00 Atorvastatin Calcium (Lipitor) 10 mg DAILY PO ; Start 08/29/16 at 09:00 Calcium Acetate (Phoslo) 667 mg TIDWMEALS PO ; Start 08/29/16 at 12:00 Folic Acid (Folic Acid) 1 mg DAILY PO ; Start 08/29/16 at 09:00 Insulin Aspart (Novolog) 3 units TID SQ ; Start 08/29/16 at 09:00 Levothyroxine Sodium (Synthroid) 75 mcg DAILY07 PO ; Start 08/29/16 at 09:00 Midodrine (Proamatine) 2.5 mg PRN TID PRN PO BLOOD PRESSURE; Start 08/29/16 at 09:00 Pantoprazole Sodium (Protonix) 40 mg BID PO ; Start 08/29/16 at 09:00 Phytonadione (Mephyton) 10 mg DAILY PO ; Start 08/29/16 at 09:00 Sodium Bicarbonate (Sodium Bicarbonate) 650 mg BID PO ; Start 08/29/16 at 09:00 Tamsulosin HCl (Flomax) 0.4 mg DAILY PO ; Start 08/29/16 at 09:00 Calcium/Vitamin D (Oscal D 500mg/ 200uts) 1 tab BIDWMEALS PO ; Start 08/29/16 at 09:00 Non-Formulary Medication 1 inh BID IH ; Start 08/29/16 at 09:00; Status UNV Lactobacillus Acidophilus (Bacid, Lou-Bid) 1 tab DAILY PO ; Start 08/29/16 at 09 :00 Multivitamins/ Calcium (Thera M Plus) 1 tab DAILY PO ; Start 08/29/16 at 09:00 Oxycodone HCl (Roxicodone) 15 mg PRN Q8HRS PRN PO PAIN; Start 08/29/16 at 09:15 Albuterol/ Ipratropium (Duoneb) 3 ml BID NEB ; Start 08/29/16 at 12:00 Active Scripts Active Midodrine Hcl 2.5 Mg Tablet 2.5 Mg PO PRN TID PRN Reported Oxycodone Hcl 15 Mg Tablet 1 Tab PO TID PRN Novolog Flexpen (Insulin Aspart) 100 Unit/1 Ml Insuln.pen 3 Unit SQ TID Flomax (Tamsulosin Hcl) 0.4 Mg Cap.er.24h 0.4 Mg PO DAILY Mephyton (Phytonadione) 5 Mg Tablet 10 Mg PO DAILY Phoslo (Calcium Acetate) 667 Mg Capsule 2 Cap PO TIDWMEALS Allopurinol 100 Mg Tablet 1 Tab PO DAILY Oyster Shell Calcium-Vit D Tab (Calcium Carbonate/Vitamin D2) 1 Each Tablet 1 Each PO BID Acidophilus Lactobacillus (Lactobacillus Acidophilus) 1 Each Capsule 1 Each PO DAILY Acetaminophen 325 Mg Tablet 650 Mg PO PRN Q4HRS PRN Sodium Bicarbonate 650 Mg Tablet 1 Tab PO BID Protonix (Pantoprazole Sodium) 40 Mg Tablet.dr 1 Tab PO BID Multi-Vitamin Daily (Multivitamin) 1 Each Tablet 1 Each PO DAILY Combivent Respimat Inhal (Ipratropium/Albuterol Sulfate) 4 Gm Aer.w.adap 1 Inh IH BID Atorvastatin Calcium 10 Mg Tablet 1 Tab PO DAILY Folic Acid 1 Mg Tablet 1 Mg PO DAILY Levothyroxine Sodium 25 Mcg Tablet 75 Mcg PO DAILYAC Vitals/I & O Vital Sign - Last 24 Hours 08/28/16 08/28/16 08/28/16 08/28/16 16:35 17:00 17:33 17:51 Temp 98.5 98.5 Pulse 100 96 98 96 Resp 18 13 12 15 B/P 94/68 99/67 100/71 106/70 Pulse Ox 100 99 99 100 O2 Delivery Room Air Room Air Room Air 08/28/16 08/28/16 08/28/16 08/28/16 18:43 19:22 20:15 21:38 Temp 98.1 98.1 Pulse 115 125 126 80 Resp 16 18 15 18 B/P 100/71 112/88 98/67 103/73 Pulse Ox 100 99 100 99 O2 Delivery Room Air Room Air 08/28/16 08/29/16 08/29/16 08/29/16 23:00 01:17 02:37 07:00 Temp 98.6 98.7 98.6 98.7 Pulse 78 85 Resp 20 20 B/P 90/59 97/70 Pulse Ox 100 O2 Delivery Room Air Room Air Room Air Room Air Intake and Output 08/28/16 08/28/16 08/29/16 15:00 23:00 07:00 Intake Total 460 ml Balance 460 ml KARAN FERGUSON MD Aug 29, 2016 10:30
[2016-08-29] MEDS ORDERED: POTASSIUM CHLORIDE 20 MEQ TABLET.ER. PO ONE (11:15)
[2016-08-29] MEDS: IPRATRPIUM/ALBUTEROL 0.5/2.5MG 3 ML NEBU. NEB SCH ×2 (11:21→21:00)
[2016-08-29] MEDS: PANTOPRAZOLE 40 MG TABLET. PO SCH ×2 (12:17→21:03)
[2016-08-29] MEDS: TAMSULOSIN 0.4 MG CAP.ER.24H. PO SCH (12:17)
[2016-08-29] MEDS: PHYTONADIONE (VIT K1) 5 MG TABLET PO SCH (12:17)
[2016-08-29] MEDS: LACTOBACILLUS ACIDOPH & BULGAR 1 TABLET. PO SCH (12:17)
[2016-08-29] MEDS: SODIUM BICARBONATE 650 MG TABLET. PO SCH ×2 (12:19→21:02)
[2016-08-29] MEDS: CALCIUM CARB/VIT D3 500/200 TABLET PO SCH ×2 (12:19→17:00)
[2016-08-29] MEDS: CALCIUM ACETATE 667 MG CAPSULE PO SCH ×2 (12:19→17:00)
[2016-08-29] MEDS: FOLIC ACID 1 MG TABLET PO SCH (12:20)
[2016-08-29] MEDS: MULTIVITAMIN with MINERAL TABLET. PO SCH (12:20)
[2016-08-29] MEDS: ALLOPURINOL 100 MG TABLET. PO SCH (12:20)
[2016-08-29] MEDS: VANCOMYCIN 125 MG/2.5 ML ORAL SOLUTION. PO SCH ×3 (14:00→21:03)
--- NOTE | 2016-08-29 14:42 | PDOC ---
Infectious Disease Note Vital Sign Vital Signs Vital Signs Date Time Temp Pulse Resp B/P Pulse Ox O2 Delivery O2 Flow Rate FiO2 08/29/16 11:22 99 Room Air 08/29/16 11:18 99.0 18 99/67 99.0 08/29/16 07:00 85 Physical Exam PHYSICAL EXAM Right sided HDC. clean Labs Lab Laboratory Tests Test 08/28/16 17:15 08/28/16 18:10 08/29/16 05:20 White Blood Count 4.6x10^3/uL (4.0-11.0) 3.9x10^3/uL (4.0-11.0) Red Blood Count 3.62x10^6/uL (4.30-5.70) 2.74x10^6/uL (4.30-5.70) Hemoglobin 10.0g/dL (13.0-17.5) 7.7g/dL (13.0-17.5) Hematocrit 32.1% (39.0-53.0) 24.5% (39.0-53.0) Mean Corpuscular Volume 89fL (79-100) 89fL (79-100) Mean Corpuscular Hemoglobin 28pg (25-35) 28pg (25-35) Mean Corpuscular Hemoglobin Concent 31g/dL (31-37) 31g/dL (31-37) Red Cell Distribution Width 19.9% (11.5-14.5) 19.3% (11.5-14.5) Platelet Count 40x10^3/uL (140-400) 57x10^3/uL (140-400) Neutrophils (%) (Auto) 73% (31-73) 72% (31-73) Lymphocytes (%) (Auto) 18% (24-48) 21% (24-48) Monocytes (%) (Auto) 8% (0-9) 4% (0-9) Eosinophils (%) (Auto) 1% (0-3) 1% (0-3) Basophils (%) (Auto) 1% (0-3) 1% (0-3) Neutrophils # (Auto) 3.3x10^3uL (1.8-7.7) 2.8x10^3uL (1.8-7.7) Lymphocytes # (Auto) 0.8x10^3/uL (1.0-4.8) 0.8x10^3/uL (1.0-4.8) Monocytes # (Auto) 0.3x10^3/uL (0.0-1.1) 0.2x10^3/uL (0.0-1.1) Eosinophils # (Auto) 0.0x10^3/uL (0.0-0.7) 0.1x10^3/uL (0.0-0.7) Basophils # (Auto) 0.0x10^3/uL (0.0-0.2) 0.0x10^3/uL (0.0-0.2) Sodium Level 143mmol/L (136-145) 145mmol/L (136-145) Potassium Level 3.1mmol/L (3.5-5.1) 2.8mmol/L (3.5-5.1) Chloride Level 105mmol/L (98-107) 112mmol/L (98-107) Carbon Dioxide Level 26mmol/L (21-32) 23mmol/L (21-32) Anion Gap 12 (6-14) 10 (6-14) Blood Urea Nitrogen 28mg/dL (8-26) 29mg/dL (8-26) Creatinine 4.9mg/dL (0.7-1.3) 5.1mg/dL (0.7-1.3) Estimated GFR (Cockcroft-Gault) 14.8 14.2 BUN/Creatinine Ratio 6 (6-20) Glucose Level 302mg/dL (70-99) 175mg/dL (70-99) Calcium Level 7.9mg/dL (8.5-10.1) 7.4mg/dL (8.5-10.1) Total Bilirubin 0.5mg/dL (0.2-1.0) Aspartate Amino Transf (AST/SGOT) 29U/L (15-37) Alanine Aminotransferase (ALT/SGPT) 27U/L (16-63) Alkaline Phosphatase 268U/L (46-116) Total Protein 7.2g/dL (6.4-8.2) Albumin 2.6g/dL (3.4-5.0) Albumin/Globulin Ratio 0.6 (1.0-1.7) Lactic Acid Level 1.9mmol/L (0.4-2.0) Objective Assessment Swelling of right arm w/ cellulitis. US neg DVT. Leukopenia/Pancytopenia h/o recurrent c. diff (06/2016, 07/2016) CKD on HD Cirrhosis of liver with ascites. s/p paracentesis 08/26. Hepatitis C Plan Plan of Care vanc and Zosyn. Add po vanc given recent c. diff Arm elevation Monitor labs and f/u Thank you [id number] Attending Co-Sign The patient was seen and interviewed as well as examined at the bedside. The chart was reviewed. The case was discussed. Agree with the plan of care. ADITYA NOROTN APRN Aug 29, 2016 13:42 CARMINE CLIFTON MD Aug 29, 2016 15:24
[2016-08-29] MEDS: LEVOTHYROXINE 75 MCG TABLET PO SCH (16:00)
[2016-08-29] MEDS: MIDODRINE 2.5 MG TABLET PO PRN (18:17)
[2016-08-29] MEDS: ATORVASTATIN CALCIUM 10 MG TABLET. PO SCH (21:03)
[2016-08-30] VITALS (12 sets, daily range): BP systolic 58–95; BP diastolic 34–62
[2016-08-30] MEDS: LEVOTHYROXINE 75 MCG TABLET PO SCH (05:21)
[2016-08-30] MEDS: PIPERACILLIN/TAZOBACTAM 2.25 GM in IV NORMAL SALINE 50ML 50 ML IV SCH ×3 (05:21→20:46)
[2016-08-30] MEDS: IPRATRPIUM/ALBUTEROL 0.5/2.5MG 3 ML NEBU. NEB SCH ×2 (07:01→19:54)
[2016-08-30] MEDS: PANTOPRAZOLE 40 MG TABLET. PO SCH ×2 (08:48→20:45)
[2016-08-30] MEDS: ALLOPURINOL 100 MG TABLET. PO SCH (08:48)
[2016-08-30] MEDS: CALCIUM ACETATE 667 MG CAPSULE PO SCH ×3 (08:48→17:00)
[2016-08-30] MEDS: SODIUM BICARBONATE 650 MG TABLET. PO SCH ×2 (08:48→20:46)
[2016-08-30] MEDS: VANCOMYCIN 125 MG/2.5 ML ORAL SOLUTION. PO SCH ×4 (08:48→20:45)
[2016-08-30] MEDS: MULTIVITAMIN with MINERAL TABLET. PO SCH (08:48)
[2016-08-30] MEDS: TAMSULOSIN 0.4 MG CAP.ER.24H. PO SCH (08:48)
[2016-08-30] MEDS: CALCIUM CARB/VIT D3 500/200 TABLET PO SCH ×2 (08:48→17:00)
[2016-08-30] MEDS: PHYTONADIONE (VIT K1) 5 MG TABLET PO SCH (08:48)
[2016-08-30] MEDS: FOLIC ACID 1 MG TABLET PO SCH (08:48)
[2016-08-30] MEDS: MIDODRINE 2.5 MG TABLET PO PRN (08:49)
[2016-08-30] MEDS: INSULIN ASPART 300 UNITS/3 ML INSULN.PEN SQ SCH ×6 (08:53→17:17)
--- NOTE | 2016-08-30 09:53 | PDOC ---
Infectious Disease Note Subjective Subjective Diarrhea, incontinence No fever Less arm pain ROS ROS GEN: Denies chills CV: Denies chest pain RESP: Denies shortness of air, cough GI: Denies n/v Vital Sign Vital Signs Vital Signs Date Time Temp Pulse Resp B/P Pulse Ox O2 Delivery O2 Flow Rate FiO2 08/30/16 08:49 120 74/52 08/30/16 07:04 99 Room Air 08/30/16 07:00 98.8 18 98.8 Physical Exam PHYSICAL EXAM GENERAL: Sleepy, NAD LUNGS: Clear HEART: S1S2, no gallop, no murmur ABD: Distended, + ascites, soft, NT EXT: BLE trace edema. Leg dressing. BUSINESS PROCESS LEAD: Alert, responds appropriately SKIN: No rash. Right arm red and warm, but less swollen IV: ok Labs Lab Laboratory Tests Test 08/29/16 20:17 08/30/16 07:48 Glucose (Fingerstick) 194mg/dL (70-99) 192mg/dL (70-99) Micro BLOOD CULTURE Preliminary NO GROWTH AFTER 1 DAY Objective Assessment Swelling of right arm w/ cellulitis. US neg DVT. Leukopenia/Pancytopenia Recurrent c. diff (06/2016, 07/2016), 3/4 CKD on HD Cirrhosis of liver with ascites. s/p paracentesis 08/26. Hepatitis C Plan Plan of Care IV/po vanc and Zosyn. Arm elevation Monitor labs/BC Attending Co-Sign The patient was seen and interviewed as well as examined at the bedside. The chart was reviewed. The case was discussed. Agree with the plan of care. ADITYA NORTON APRN Aug 30, 2016 09:53 CARMINE CLIFTON MD Aug 30, 2016 13:53
[2016-08-30] MEDS ORDERED: METOPROLOL TARTRATE 5 MG/5 ML VIAL. IVP ONE (10:30)
--- NOTE | 2016-08-30 10:33 | PDOC ---
PROGRESS NOTES Chief Complaint Chief Complaint HYPOTENSION, CHRONIC on midodrine RECENT SIRS,. no sepsis REcurrent Ascites, recurrent, hepatitis C, cirrhosis: s/p large volume paracentesis C DIFF POSITIVE (THIS ADMISSION) 3. End-stage renal disease, on hemodialysis. 4. Severe thrombocytopenia secondary to cirrhosis. 5. Diabetes mellitus.: SSI 6. Diastolic heart failure, chronic, stable. 7. Hypertension, currently hypotensive, 8. Hypothermia. 9. Severe malnutrition. 10. History of substance abuse, cocaine, marijuana, and ethyl alcohol. 11. Anemia with chronic disease and cirrhosis. 12. low BP, baseline 13. Hypokalemia 14. SEVERE PCM History of Present Illness History of Present Illness Hgb 7,.7 down from 10 Platelets 57 - where he hovers C diff positive on vanc QID per iD Refuses to talk to me Always cold LAst admit, he looked me in the eye and said he "was not ready to " Refused hospice or palliative that time NOw, no eye contact S/p albumin 25 gms yesterday ATchy 100s HYPOTENSIVE ABd more distended today than yesterday PLAn: INc midodrine, make SCHEDULED instead of prn Lopressor x 1 only for tachy HD per renal Re involve palliative - might be more open to it now? COnt PO vanc Echeck ABd US amt ascites - gets large volume paracentesis intermittently Over all poor prognosis NEeds hospice MOnitor anemia, thrombocytopenia INR check if none recentlt Dw RN Vitals Vitals Vital Signs Date Time Temp Pulse Resp B/P Pulse Ox O2 Delivery O2 Flow Rate FiO2 08/30/16 08:49 120 74/52 08/30/16 08:00 Room Air 08/30/16 07:04 99 08/30/16 07:00 98.8 18 98.8 Physical Exam Lungs: Clear Labs LABS Laboratory Tests Test 08/29/16 20:17 08/30/16 07:48 Glucose (Fingerstick) 194mg/dL (70-99) 192mg/dL (70-99) Review of Systems Review of Systems refused Assessment and Plan Assessmemt and Plan Problems Medical Problems: (1) Cellulitis Status: Acute (2) Dialysis patient Status: Acute Problems: Comment Review of Relevant I have reviewed the following items дмитрий (where applicable) has been applied. Labs Laboratory Tests Test 08/28/16 17:15 08/28/16 18:10 08/29/16 05:20 08/29/16 09:50 White Blood Count 4.6x10^3/uL (4.0-11.0) 3.9x10^3/uL (4.0-11.0) Red Blood Count 3.62x10^6/uL (4.30-5.70) 2.74x10^6/uL (4.30-5.70) Hemoglobin 10.0g/dL (13.0-17.5) 7.7g/dL (13.0-17.5) Hematocrit 32.1% (39.0-53.0) 24.5% (39.0-53.0) Mean Corpuscular Volume 89fL (79-100) 89fL (79-100) Mean Corpuscular Hemoglobin 28pg (25-35) 28pg (25-35) Mean Corpuscular Hemoglobin Concent 31g/dL (31-37) 31g/dL (31-37) Red Cell Distribution Width 19.9% (11.5-14.5) 19.3% (11.5-14.5) Platelet Count 40x10^3/uL (140-400) 57x10^3/uL (140-400) Neutrophils (%) (Auto) 73% (31-73) 72% (31-73) Lymphocytes (%) (Auto) 18% (24-48) 21% (24-48) Monocytes (%) (Auto) 8% (0-9) 4% (0-9) Eosinophils (%) (Auto) 1% (0-3) 1% (0-3) Basophils (%) (Auto) 1% (0-3) 1% (0-3) Neutrophils # (Auto) 3.3x10^3uL (1.8-7.7) 2.8x10^3uL (1.8-7.7) Lymphocytes # (Auto) 0.8x10^3/uL (1.0-4.8) 0.8x10^3/uL (1.0-4.8) Monocytes # (Auto) 0.3x10^3/uL (0.0-1.1) 0.2x10^3/uL (0.0-1.1) Eosinophils # (Auto) 0.0x10^3/uL (0.0-0.7) 0.1x10^3/uL (0.0-0.7) Basophils # (Auto) 0.0x10^3/uL (0.0-0.2) 0.0x10^3/uL (0.0-0.2) Sodium Level 143mmol/L (136-145) 145mmol/L (136-145) Potassium Level 3.1mmol/L (3.5-5.1) 2.8mmol/L (3.5-5.1) Chloride Level 105mmol/L (98-107) 112mmol/L (98-107) Carbon Dioxide Level 26mmol/L (21-32) 23mmol/L (21-32) Anion Gap 12 (6-14) 10 (6-14) Blood Urea Nitrogen 28mg/dL (8-26) 29mg/dL (8-26) Creatinine 4.9mg/dL (0.7-1.3) 5.1mg/dL (0.7-1.3) Estimated GFR (Cockcroft-Gault) 14.8 14.2 BUN/Creatinine Ratio 6 (6-20) Glucose Level 302mg/dL (70-99) 175mg/dL (70-99) Calcium Level 7.9mg/dL (8.5-10.1) 7.4mg/dL (8.5-10.1) Total Bilirubin 0.5mg/dL (0.2-1.0) Aspartate Amino Transf (AST/SGOT) 29U/L (15-37) Alanine Aminotransferase (ALT/SGPT) 27U/L (16-63) Alkaline Phosphatase 268U/L (46-116) Total Protein 7.2g/dL (6.4-8.2) Albumin 2.6g/dL (3.4-5.0) Albumin/Globulin Ratio 0.6 (1.0-1.7) Lactic Acid Level 1.9mmol/L (0.4-2.0) Clostridium difficile Toxin (PCR) Positive (Negative) Test 08/29/16 20:17 08/30/16 07:48 Glucose (Fingerstick) 194mg/dL (70-99) 192mg/dL (70-99) Laboratory Tests Test 08/29/16 20:17 08/30/16 07:48 Glucose (Fingerstick) 194mg/dL (70-99) 192mg/dL (70-99) Microbiology 08/28/16 Blood Culture - Preliminary, Resulted NO GROWTH AFTER 1 DAY Medications Current Medications Vancomycin HCl (Vanco Per Pharmacy) 1 each PRN DAILY PRN MC SEE COMMENTS Last administered on 08/28/16 19:57; Start 08/28/16 at 18:00 Piperacillin Sod/ Tazobactam Sod (Zosyn Per Pharmacy) 1 each PRN DAILY PRN MC SEE COMMENTS; Start 08/28/16 at 18:00; Stop 08/29/16 at 14:40; Status DC Acetaminophen/ Hydrocodone Bitart 1 tab 1 tab 1X ONCE PO Last administered on 08/28/16 19:05; Start 08/28/16 at 18:00; Stop 08/28/16 at 18:01; Status DC Vancomycin HCl 2 gm/Sodium Chloride 500 ml @ 250 mls/hr 1X ONCE IV Last administered on 08/28/16 20:37; Start 08/28/16 at 18:00; Stop 08/28/16 at 19:59; Status DC Piperacillin Sod/ Tazobactam Sod 3.375 gm/Sodium Chloride 50 ml @ 100 mls/hr Q6HRS IV ; Start 08/28/16 at 18:00; Stop 08/28/16 at 18:01; Status DC Piperacillin Sod/ Tazobactam Sod/ Sodium Chloride (Zosyn/Iv Sodium Chloride 0.9 % 50ml) 50 ml @ 100 mls/hr Q8HRS IV Last administered on 08/30/16 05:21; Start 08/28/16 at 18:01 Ondansetron HCl (Zofran) 4 mg PRN Q8HRS PRN IV NAUSEA/VOMITING; Start 08/28/16 at 19:45; Stop 08/29/16 at 08:53; Status DC Morphine Sulfate 2 mg PRN Q2HR PRN IV PAIN; Start 08/28/16 at 19:45; Stop at 19:44; Status DC Acetaminophen (Tylenol) 650 mg PRN Q4HRS PRN PO FEVER; Start 08/28/16 at 19:45; Stop 08/29/16 at 19:44; Status DC Insulin Aspart (Novolog) 0-7 UNITS TIDWMEALS SQ Last administered on 08/30/16 08:55; Start 08/29/16 at 08:00 Dextrose 12.5 gm PRN Q15MIN PRN IV SEE COMMENTS; Start 08/28/16 at 19:45 Vancomycin HCl 1 each 1X ONCE MC ; Start 08/30/16 at 21:00; Stop 08/30/16 at 21: 01 Ondansetron HCl (Zofran) 4 mg PRN Q6HRS PRN IV NAUSEA/VOMITING; Start 08/29/16 at 08:51 Allopurinol (Zyloprim) 100 mg DAILY PO Last administered on 08/30/16 08:48; Start 08/29/16 at 09:00 Atorvastatin Calcium (Lipitor) 10 mg DAILY PO ; Start 08/29/16 at 09:00; Stop 08/29/16 at 15:11; Status DC Calcium Acetate (Phoslo) 667 mg TIDWMEALS PO Last administered on 08/30/16 08: 48; Start 08/29/16 at 12:00 Folic Acid (Folic Acid) 1 mg DAILY PO Last administered on 08/30/16 08:48; Start 08/29/16 at 09:00 Insulin Aspart (Novolog) 3 units TID SQ Last administered on 08/29/16 13:38; Start 08/29/16 at 09:00; Stop 08/29/16 at 15:11; Status DC Levothyroxine Sodium (Synthroid) 75 mcg DAILY07 PO Last administered on 05:21; Start 08/29/16 at 09:00 Midodrine (Proamatine) 2.5 mg PRN TID PRN PO TO INCREASE BLOOD PRESSURE Last administered on 08/30/16 08:49; Start 08/29/16 at 09:00 Pantoprazole Sodium (Protonix) 40 mg BID PO Last administered on 08/30/16 08:48 ; Start 08/29/16 at 09:00 Phytonadione (Mephyton) 10 mg DAILY PO Last administered on 08/30/16 08:48; Start 08/29/16 at 09:00 Sodium Bicarbonate (Sodium Bicarbonate) 650 mg BID PO Last administered on 08:48; Start 08/29/16 at 09:00 Tamsulosin HCl (Flomax) 0.4 mg DAILY PO Last administered on 08/30/16 08:48; Start 08/29/16 at 09:00 Calcium/Vitamin D (Oscal D 500mg/ 200uts) 1 tab BIDWMEALS PO Last administered on 08/30/16 08:48; Start 08/29/16 at 09:00 Non-Formulary Medication 1 inh BID IH ; Start 08/29/16 at 09:00; Status UNV Lactobacillus Acidophilus (Bacid, Lou-Bid) 1 tab DAILY PO Last administered on 08/29/16 12:17; Start 08/29/16 at 09:00 Multivitamins/ Calcium (Thera M Plus) 1 tab DAILY PO Last administered on 08:48; Start 08/29/16 at 09:00 Oxycodone HCl (Roxicodone) 15 mg PRN Q8HRS PRN PO PAIN; Start 08/29/16 at 09:15 Albuterol/ Ipratropium 3 ml 3 ml BID NEB Last administered on 08/30/16 07:01; Start 08/29/16 at 12:00 Albumin Human (Albuminar) 100 ml @ 100 mls/hr 1X ONCE IV Last administered on 08/29/16 12:20; Start 08/29/16 at 10:30; Stop 08/29/16 at 11:29; Status DC Potassium Chloride (Klor-Con) 60 meq 1X ONCE PO Last administered on 08/29/16 12:18; Start 08/29/16 at 11:15; Stop 08/29/16 at 11:16; Status DC Vancomycin HCl 125 mg [id number] PO Last administered on 08/30/16 08:48; Start 08/29/16 at 14:00 Atorvastatin Calcium (Lipitor) 10 mg HS PO Last administered on 08/29/16 21:03 ; Start 08/29/16 at 21:00 Insulin Aspart (Novolog) 3 units TIDAC SQ Last administered on 08/30/16 08:53; Start 08/29/16 at 16:30 Active Scripts Active Midodrine Hcl 2.5 Mg Tablet 2.5 Mg PO PRN TID PRN Reported Oxycodone Hcl 15 Mg Tablet 1 Tab PO TID PRN Novolog Flexpen (Insulin Aspart) 100 Unit/1 Ml Insuln.pen 3 Unit SQ TID Flomax (Tamsulosin Hcl) 0.4 Mg Cap.er.24h 0.4 Mg PO DAILY Mephyton (Phytonadione) 5 Mg Tablet 10 Mg PO DAILY Phoslo (Calcium Acetate) 667 Mg Capsule 2 Cap PO TIDWMEALS Allopurinol 100 Mg Tablet 1 Tab PO DAILY Oyster Shell Calcium-Vit D Tab (Calcium Carbonate/Vitamin D2) 1 Each Tablet 1 Each PO BID Acidophilus Lactobacillus (Lactobacillus Acidophilus) 1 Each Capsule 1 Each PO DAILY Acetaminophen 325 Mg Tablet 650 Mg PO PRN Q4HRS PRN Sodium Bicarbonate 650 Mg Tablet 1 Tab PO BID Protonix (Pantoprazole Sodium) 40 Mg Tablet.dr 1 Tab PO BID Multi-Vitamin Daily (Multivitamin) 1 Each Tablet 1 Each PO DAILY Combivent Respimat Inhal (Ipratropium/Albuterol Sulfate) 4 Gm Aer.w.adap 1 Inh IH BID Atorvastatin Calcium 10 Mg Tablet 1 Tab PO DAILY Folic Acid 1 Mg Tablet 1 Mg PO DAILY Levothyroxine Sodium 25 Mcg Tablet 75 Mcg PO DAILYAC Vitals/I & O Vital Sign - Last 24 Hours 08/29/16 08/29/16 08/29/16 08/29/16 11:18 11:22 15:22 18:15 Temp 99.0 99.1 99.0 99.1 Pulse 113 128 Resp 18 18 B/P 99/67 83/54 77/44 Pulse Ox 97 99 96 O2 Delivery Room Air Room Air Room Air 08/29/16 08/29/16 08/29/16 08/29/16 18:17 19:00 20:00 23:00 Temp 97.5 98.1 97.5 98.1 Pulse 128 115 104 Resp 20 20 B/P 70/44 59/40 85/60 Pulse Ox 100 98 O2 Delivery Room Air Room Air Room Air 08/30/16 08/30/16 08/30/16 08/30/16 03:04 07:00 07:04 08:00 Temp 98.1 98.8 98.1 98.8 Pulse 101 59 Resp 20 18 B/P 86/56 74/52 Pulse Ox 98 100 99 O2 Delivery Room Air Room Air Room Air Room Air 08/30/16 08:49 Pulse 120 B/P 74/52 Intake and Output 08/29/16 08/29/16 08/30/16 15:00 23:00 07:00 Intake Total 600 ml 450 ml 300 ml Balance 600 ml 450 ml 300 ml KARAN FERGUSON MD Aug 30, 2016 10:33
--- NOTE | 2016-08-30 11:09 | CONS ---
DATE OF CONSULTATION: REQUESTING PHYSICIAN: Hospitalist. REASON FOR CONSULTATION: Renal failure. HISTORY OF PRESENT ILLNESS: This is one of multiple hospitalizations for this 56-year-old gentleman with end-stage renal disease in the setting of end-stage liver disease, diabetes mellitus and hypertension. The patient has ongoing difficulties with outpatient dialysis due to symptomatic hypotension. He is currently admitted with right arm pain. He has been placed on antibiotics, pending culture results. He was felt to have right arm cellulitis. PAST MEDICAL HISTORY: 1. Diabetes mellitus. 2. Hypertension. 3. End-stage renal disease secondary to diabetes mellitus. 4. Hepatic failure in the setting of hepatitis C. 5. Cardiomyopathy. 6. Anemia of chronic kidney disease. 7. Secondary hyperparathyroidism. 8. Renal disease. 9. Vascular access placement. ALLERGIES: None. MEDICATIONS: Reviewed. FAMILY HISTORY: Noncontributory. SOCIAL HISTORY: The patient resides with assistance from family, has history of alcohol use, cocaine use, and previously smoked. REVIEW OF SYSTEMS: No headaches, sinus problem, nasal drainage, epistaxis, change in vision or hearing. No difficulty swallowing. No fever, chills, cough, sputum production, hemoptysis. He has had arm pain. No chest pain or shortness of breath. No abdominal pain. He has had probable ascites. No seizures or malignancies. He has hepatitis C. PHYSICAL EXAMINATION: GENERAL: The patient is somnolent, but awakens. HEENT: ____. NECK: No increased JVD. No thyromegaly, mass, or adenopathy. LUNGS: Clear. CARDIAC: Without S3 or rub. ABDOMEN: Distended and nontender. EXTREMITIES: Right upper extremity is swollen with some edema. NEUROLOGIC: Nonfocal localizing. PSYCHIATRIC: Reduced attention to detail. Dysphoric affect. LABORATORY DATA: White count 3.9, hemoglobin 7.7, hematocrit 24.5. Sodium 145, potassium 2.8, chloride 112, CO2 23, BUN is 29, creatinine 5.1, GFR 14. IMPRESSION: 1. End-stage renal disease secondary to diabetic nephropathy. 2. Diabetes mellitus. 3. Hypertension. 4. Right arm cellulitis. 5. Cirrhosis with history of ascites. 6. Hypokalemia - has been replaced per nursing staff. RECOMMENDATIONS: No acute indication for dialysis today. His dialysis treatments have been very difficult due to hypotension. I am not sure that he is able to continue to be dialyzed as an outpatient basis. Next dialysis attempt will be on Wednesday. BANDAR CHOUDHURY MD DR: HERMAN/melissa JOB#: [id number] / [id number]
[2016-08-30] MEDS: LACTOBACILLUS ACIDOPH & BULGAR 1 TABLET. PO SCH (13:02)
[2016-08-30] MEDS: MIDODRINE 2.5 MG TABLET PO SCH ×2 (13:18→20:46)
[2016-08-30] MEDS ORDERED: IV NORMAL SALINE 1000ML BAG 1,000 ML IV ONE (14:45)
[2016-08-30] MEDS ORDERED: NOREPINEPHRINE VIAL 8 MG in IV NORMAL SALINE 250ML 250 ML IV PRN (15:00)
[2016-08-30] MEDS: VANCOMYCIN PER PHARMACY MC PRN (15:01)
[2016-08-30 15:42] LABS: GFR 11.7; MAGNESIUM 1.3 mg/dL (1.8-2.4)
[2016-08-30 15:52] LABS: POTASSIUM 2.5 mmol/L (3.5-5.1)
[2016-08-30] MEDS ORDERED: MAGNESIUM SULFATE 2GM 50 ML IV ONE ×2 (17:00→20:00)
--- NOTE | 2016-08-30 17:06 | RAD ---
Examination: Ultrasound 4 quadrant abdomen limited History: History of ascites. Assess for amount of fluid Comparison: 08/24/2016 Findings: Four-quadrant ultrasound of the abdomen demonstrates large amount of ascites. Impression: Four-quadrant ultrasound abdomen demonstrates large amount of ascites.
[2016-08-30] MEDS: POTASSIUM CHLORIDE 10MEQ 100 ML IV SCH ×7 (17:13→23:00)
[2016-08-30] MEDS: ATORVASTATIN CALCIUM 10 MG TABLET. PO SCH (20:45)
[2016-08-30] MEDS: OXYCODONE IR 5 MG TABLET. PO PRN (20:54)
[2016-08-30] MEDS ORDERED: VANCOMYCIN RANDOM LEVEL. MC ONE (21:00)
[2016-08-31] VITALS (18 sets, daily range): BP systolic 82–116; BP diastolic 43–80
[2016-08-31] MEDS: POTASSIUM CHLORIDE 10MEQ 100 ML IV SCH
[2016-08-31] MEDS: PIPERACILLIN/TAZOBACTAM 2.25 GM in IV NORMAL SALINE 50ML 50 ML IV SCH (05:57)
--- NOTE | 2016-08-31 06:12 | CONS ---
DATE OF CONSULTATION: 08/28/2016 REQUESTING PHYSICIAN: Dr. Thomas. REASON FOR CONSULTATION: Right arm cellulitis. HISTORY OF PRESENT ILLNESS: The patient is a 56-year-old -[place] gentleman, who was sent from the alf with right upper extremity swelling and redness. The patient believes the symptoms were caused from IV. He reports limited use due to pain. He denies fevers or chills. Initial WBC level was normal. Ultrasound of the right arm was negative for DVT. He was started on vancomycin and Zosyn in the ER. PAST MEDICAL HISTORY: Clostridium difficile colitis; chronic kidney disease, on hemodialysis; alcoholic liver disease; cirrhosis with ascites; hyperlipidemia; hypertension; chronic obstructive pulmonary disease; dementia; gout; diabetes mellitus; hypothyroidism; osteoarthritis; cardiomyopathy; congestive heart failure; gastroesophageal reflux disease and hepatitis C. PAST SURGICAL HISTORY: Right-sided chest hemodialysis catheter placement and right shoulder surgery. SOCIAL HISTORY: The patient is a alf resident. ALLERGIES: No known drug allergies. MEDICATIONS: Vancomycin, Zosyn and probiotics. Other medications are available and have been reviewed on the AUG. REVIEW OF SYSTEMS: Limited as the patient is not very social or engaging in conversation. He does, however, complain of the arm hurting. The patient was recently discharged from the hospital a couple of days ago where he underwent a paracentesis on the . No cultures obtained. PHYSICAL EXAMINATION: GENERAL: Thin, -[place] male, propped up in bed, eating. VITAL SIGNS: Afebrile, blood pressure 99/67, heart rate 85, respiratory rate 18, pulse oximetry 99% on room air and weight is 148.31 pounds. LUNGS: Clear to auscultation. HEART: Normal S1 and S2. EXTREMITIES: Right upper extremity is swollen, red and warmth. Nontender. Radial pulses are palpable. Pinion Sorter is strong. Bilateral lower extremities, trace edema. SKIN: Without rash. He has leg dressings on that are dry. NEUROLOGIC: Alert. Answers a few questions appropriately. Physical exam is limited as the patient is irritable and does not wish to be bothered. LABORATORY DATA: Today's WBC 3.9, hemoglobin 7.7, platelet count 57,000. Sodium 145, potassium 2.8, creatinine of 5.1, BUN 29. Lactic acid 1.9, albumin 2.6, total bilirubin 0.5, AST 29, ALT 27. C. diff pending. Blood cultures pending. Ultrasound RUE showed no evidence of DVT. STUDIES: Chest x-ray shows linear bibasal lung airspace opacities, likely atelectasis or scarring changes. IMPRESSION: 1. Swelling of right arm with cellulitis and negative deep venous thrombosis on ultrasound. 2. Leukopenia and pancytopenia. 3. History of recurrent Clostridium difficile. 4. Chronic kidney disease, on hemodialysis. 5. Cirrhosis of liver with ascites. 6. Hepatitis C. PLAN: Add po vancomycin given recent Clostridium difficile. Continue vancomycin and Zosyn. Elevate the arm. Monitor laboratory values, and we will follow up on blood cultures. Thank you, Dr. Thomas for asking us to participate in this patient's care. Should you have further questions or concerns, please call. CARMINE CLIFTON MD DR: SAL/melissa JOB#: [id number] / [id number] TARYN
--- NOTE | 2016-08-31 07:53 | PDOC ---
Infectious Disease Note Subjective Subjective Diarrhea, incontinence No fever Less arm pain ROS ROS no n/v cont pain Vital Sign Vital Signs Vital Signs Date Time Temp Pulse Resp B/P Pulse Ox O2 Delivery O2 Flow Rate FiO2 08/31/16 06:00 90 16 90/54 Room Air 08/31/16 04:00 98.6 98.6 08/30/16 20:54 94 Physical Exam PHYSICAL EXAM GENERAL: NAD, Alert HEENT: PERRL, OC/OP NECK: Supple, no JVD, no LN LUNGS: Clear HEART: S1S2, no gallop, no murmur ABD: Soft, NT, no organomegaly, no rebound EXT: No edema, no cyanosis,, rt upper ext cellulitis better LABORATORY CHEMICAL ASSISTANT: Alert, oriented x 3, no focal neurologic deficit SKIN: No rash IV: ok Labs Lab Laboratory Tests Test 08/30/16 11:17 08/30/16 15:20 08/30/16 20:50 Glucose (Fingerstick) 222mg/dL (70-99) Sodium Level 144mmol/L (136-145) Potassium Level 2.5mmol/L (3.5-5.1) Chloride Level 112mmol/L (98-107) Carbon Dioxide Level 18mmol/L (21-32) Anion Gap 14 (6-14) Blood Urea Nitrogen 38mg/dL (8-26) Creatinine 6.0mg/dL (0.7-1.3) Estimated GFR (Cockcroft-Gault) 11.7 Glucose Level 231mg/dL (70-99) Lactic Acid Level 2.8mmol/L (0.4-2.0) Calcium Level 7.0mg/dL (8.5-10.1) Magnesium Level 1.3mg/dL (1.8-2.4) Random Vancomycin Level 17.8mcg/mL Objective Assessment Swelling of right arm w/ cellulitis. US neg DVT. Leukopenia/Pancytopenia Recurrent c. diff (06/2016, 07/2016), 3/4 CKD on HD Cirrhosis of liver with ascites. s/p paracentesis 08/26. Hepatitis C Plan Plan of Care po vanc, rest d/c Arm elevation Monitor labs/BC CARMINE CLIFTON MD Aug 31, 2016 07:53
[2016-08-31] MEDS: CALCIUM ACETATE 667 MG CAPSULE PO SCH ×3 (07:55→17:22)
[2016-08-31] MEDS: PANTOPRAZOLE 40 MG TABLET. PO SCH ×2 (07:56→21:17)
[2016-08-31] MEDS: PHYTONADIONE (VIT K1) 5 MG TABLET PO SCH (07:56)
[2016-08-31] MEDS: CALCIUM CARB/VIT D3 500/200 TABLET PO SCH ×2 (07:56→17:22)
[2016-08-31] MEDS: OXYCODONE IR 5 MG TABLET. PO PRN (07:56)
[2016-08-31] MEDS: MULTIVITAMIN with MINERAL TABLET. PO SCH (07:57)
[2016-08-31] MEDS: LACTOBACILLUS ACIDOPH & BULGAR 1 TABLET. PO SCH (07:57)
[2016-08-31] MEDS: SODIUM BICARBONATE 650 MG TABLET. PO SCH ×2 (07:57→21:17)
[2016-08-31] MEDS: LEVOTHYROXINE 75 MCG TABLET PO SCH (07:57)
[2016-08-31] MEDS: FOLIC ACID 1 MG TABLET PO SCH (07:57)
[2016-08-31] MEDS: MIDODRINE 2.5 MG TABLET PO SCH ×2 (07:57→21:18)
[2016-08-31] MEDS ORDERED: IV NORMAL SALINE 1000ML BAG 1,000 ML IV PRN ×2 (08:07)
[2016-08-31] MEDS: INSULIN ASPART 300 UNITS/3 ML INSULN.PEN SQ SCH ×6 (08:08→17:00)
[2016-08-31] MEDS: VANCOMYCIN 125 MG/2.5 ML ORAL SOLUTION. PO SCH ×4 (08:08→21:18)
[2016-08-31] MEDS: ALLOPURINOL 100 MG TABLET. PO SCH (08:08)
[2016-08-31 08:12] LABS: BASO # 0.1 x10^3/uL (0.0-0.2); BASO % 3 % (0-3); EOS % 3 % (0-3); HEMATOCRIT 22.8 % (39.0-53.0); HEMOGLOBIN 7.1 g/dL (13.0-17.5); LYMPH # 0.5 x10^3/uL (1.0-4.8); LYMPH % 16 % (24-48); MEAN CORPUSCULAR HEMOGLOBIN 28 pg (25-35); MEAN CORPUSCULAR HGB CONC 31 g/dL (31-37); MEAN CORPUSCULAR VOLUME 91 fL (79-100); MONO % 8 % (0-9); NEUT % 71 % (31-73); PLATELET COUNT 42 x10^3/uL (140-400); RED BLOOD COUNT 2.52 x10^6/uL (4.30-5.70); RED CELL DISTRIBUTION WIDTH 20.6 % (11.5-14.5); WHITE BLOOD COUNT 2.9 x10^3/uL (4.0-11.0)
[2016-08-31] MEDS ORDERED: 0.9 % SODIUM CHLORIDE 10 ML DISP.SYRIN. IV PRN ×2 (08:15)
[2016-08-31] MEDS ORDERED: DIALYSIS PATIENT. MC PRN (08:15)
[2016-08-31] MEDS ORDERED: DIPHENHYDRAMINE 50 MG/ML VIAL IV PRN ×2 (08:15)
[2016-08-31 08:21] LABS: INR 1.5 (0.8-1.1); PROTHROMBIN TIME PATIENT 17.5 SEC (11.7-14.0)
[2016-08-31 08:27] LABS: CALCIUM 7.1 mg/dL (8.5-10.1); CREATININE 6.3 mg/dL (0.7-1.3); GFR 11.1; POTASSIUM 3.4 mmol/L (3.5-5.1)
--- NOTE | 2016-08-31 09:06 | PDOC ---
PROGRESS NOTES Chief Complaint Chief Complaint HYPOTENSION, acute on chronic sepsis, cellulitis, c. diff. colitis Recurrent Ascites, recurrent, hepatitis C, cirrhosis: s/p large volume paracentesis End-stage renal disease, on hemodialysis. Severe thrombocytopenia secondary to cirrhosis. Diabetes mellitus.: Diastolic heart failure, chronic, stable. . Hypertension, currently hypotensive, Severe malnutrition. History of substance abuse, cocaine, marijuana, and ethyl alcohol. Anemia with chronic disease and cirrhosis. Hypokalemia, hypomagnesemiia History of Present Illness History of Present Illness Hgb 7.1 still trending down, transfuse 1 u PRBC C diff positive on vanc QID was bickering with RN earlier prognosis poor, will cont current and consult palliative midodrine, SCHEDULED i Lopressor x 1 HD per renal, due today Re involve palliative - might be more open to it now? Over all poor prognosis NEeds hospice Vitals Vitals Vital Signs Date Time Temp Pulse Resp B/P Pulse Ox O2 Delivery O2 Flow Rate FiO2 08/31/16 08:00 98.0 93 18 99/61 96 Room Air 98.0 Physical Exam General: Alert, mild distress Heart: No murmurs Lungs: Clear, Other Abdomen: No tenderness Extremities: No clubbing, No cyanosis Skin: No breakdown Labs LABS Laboratory Tests Test 08/30/16 11:17 08/30/16 15:20 08/30/16 20:50 08/31/16 08:00 Glucose (Fingerstick) 222mg/dL (70-99) 220mg/dL (70-99) Sodium Level 144mmol/L (136-145) 144mmol/L (136-145) Potassium Level 2.5mmol/L (3.5-5.1) 3.4mmol/L (3.5-5.1) Chloride Level 112mmol/L (98-107) 111mmol/L (98-107) Carbon Dioxide Level 18mmol/L (21-32) 21mmol/L (21-32) Anion Gap 14 (6-14) 12 (6-14) Blood Urea Nitrogen 38mg/dL (8-26) 41mg/dL (8-26) Creatinine 6.0mg/dL (0.7-1.3) 6.3mg/dL (0.7-1.3) Estimated GFR (Cockcroft-Gault) 11.7 11.1 Glucose Level 231mg/dL (70-99) 249mg/dL (70-99) Lactic Acid Level 2.8mmol/L (0.4-2.0) Calcium Level 7.0mg/dL (8.5-10.1) 7.1mg/dL (8.5-10.1) Magnesium Level 1.3mg/dL (1.8-2.4) Random Vancomycin Level 17.8mcg/mL White Blood Count 2.9x10^3/uL (4.0-11.0) Red Blood Count 2.52x10^6/uL (4.30-5.70) Hemoglobin 7.1g/dL (13.0-17.5) Hematocrit 22.8% (39.0-53.0) Mean Corpuscular Volume 91fL (79-100) Mean Corpuscular Hemoglobin 28pg (25-35) Mean Corpuscular Hemoglobin Concent 31g/dL (31-37) Red Cell Distribution Width 20.6% (11.5-14.5) Platelet Count 42x10^3/uL (140-400) Neutrophils (%) (Auto) 71% (31-73) Lymphocytes (%) (Auto) 16% (24-48) Monocytes (%) (Auto) 8% (0-9) Eosinophils (%) (Auto) 3% (0-3) Basophils (%) (Auto) 3% (0-3) Neutrophils # (Auto) 2.1x10^3uL (1.8-7.7) Lymphocytes # (Auto) 0.5x10^3/uL (1.0-4.8) Monocytes # (Auto) 0.2x10^3/uL (0.0-1.1) Eosinophils # (Auto) 0.1x10^3/uL (0.0-0.7) Basophils # (Auto) 0.1x10^3/uL (0.0-0.2) Prothrombin Time 17.5SEC (11.7-14.0) Prothromb Time International Ratio 1.5 (0.8-1.1) Review of Systems Review of Systems no n/v/d Assessment and Plan Assessmemt and Plan Problems Medical Problems: (1) Cellulitis Status: Acute (2) Dialysis patient Status: Acute (3) Septic shock Status: Acute Problems: Comment Review of Relevant I have reviewed the following items дмитрий (where applicable) has been applied. Labs Laboratory Tests Test 08/29/16 09:50 08/29/16 12:12 08/29/16 16:45 08/29/16 20:17 Clostridium difficile Toxin (PCR) Positive (Negative) Glucose (Fingerstick) 164mg/dL (70-99) 81mg/dL (70-99) 194mg/dL (70-99) Test 08/30/16 07:48 08/30/16 11:17 08/30/16 15:20 08/30/16 20:50 Glucose (Fingerstick) 192mg/dL (70-99) 222mg/dL (70-99) Sodium Level 144mmol/L (136-145) Potassium Level 2.5mmol/L (3.5-5.1) Chloride Level 112mmol/L (98-107) Carbon Dioxide Level 18mmol/L (21-32) Anion Gap 14 (6-14) Blood Urea Nitrogen 38mg/dL (8-26) Creatinine 6.0mg/dL (0.7-1.3) Estimated GFR (Cockcroft-Gault) 11.7 Glucose Level 231mg/dL (70-99) Lactic Acid Level 2.8mmol/L (0.4-2.0) Calcium Level 7.0mg/dL (8.5-10.1) Magnesium Level 1.3mg/dL (1.8-2.4) Random Vancomycin Level 17.8mcg/mL Test 08/31/16 08:00 White Blood Count 2.9x10^3/uL (4.0-11.0) Red Blood Count 2.52x10^6/uL (4.30-5.70) Hemoglobin 7.1g/dL (13.0-17.5) Hematocrit 22.8% (39.0-53.0) Mean Corpuscular Volume 91fL (79-100) Mean Corpuscular Hemoglobin 28pg (25-35) Mean Corpuscular Hemoglobin Concent 31g/dL (31-37) Red Cell Distribution Width 20.6% (11.5-14.5) Platelet Count 42x10^3/uL (140-400) Neutrophils (%) (Auto) 71% (31-73) Lymphocytes (%) (Auto) 16% (24-48) Monocytes (%) (Auto) 8% (0-9) Eosinophils (%) (Auto) 3% (0-3) Basophils (%) (Auto) 3% (0-3) Neutrophils # (Auto) 2.1x10^3uL (1.8-7.7) Lymphocytes # (Auto) 0.5x10^3/uL (1.0-4.8) Monocytes # (Auto) 0.2x10^3/uL (0.0-1.1) Eosinophils # (Auto) 0.1x10^3/uL (0.0-0.7) Basophils # (Auto) 0.1x10^3/uL (0.0-0.2) Prothrombin Time 17.5SEC (11.7-14.0) Prothromb Time International Ratio 1.5 (0.8-1.1) Sodium Level 144mmol/L (136-145) Potassium Level 3.4mmol/L (3.5-5.1) Chloride Level 111mmol/L (98-107) Carbon Dioxide Level 21mmol/L (21-32) Anion Gap 12 (6-14) Blood Urea Nitrogen 41mg/dL (8-26) Creatinine 6.3mg/dL (0.7-1.3) Estimated GFR (Cockcroft-Gault) 11.1 Glucose Level 249mg/dL (70-99) Glucose (Fingerstick) 220mg/dL (70-99) Calcium Level 7.1mg/dL (8.5-10.1) Laboratory Tests Test 08/30/16 11:17 08/30/16 15:20 08/30/16 20:50 08/31/16 08:00 Glucose (Fingerstick) 222mg/dL (70-99) 220mg/dL (70-99) Sodium Level 144mmol/L (136-145) 144mmol/L (136-145) Potassium Level 2.5mmol/L (3.5-5.1) 3.4mmol/L (3.5-5.1) Chloride Level 112mmol/L (98-107) 111mmol/L (98-107) Carbon Dioxide Level 18mmol/L (21-32) 21mmol/L (21-32) Anion Gap 14 (6-14) 12 (6-14) Blood Urea Nitrogen 38mg/dL (8-26) 41mg/dL (8-26) Creatinine 6.0mg/dL (0.7-1.3) 6.3mg/dL (0.7-1.3) Estimated GFR (Cockcroft-Gault) 11.7 11.1 Glucose Level 231mg/dL (70-99) 249mg/dL (70-99) Lactic Acid Level 2.8mmol/L (0.4-2.0) Calcium Level 7.0mg/dL (8.5-10.1) 7.1mg/dL (8.5-10.1) Magnesium Level 1.3mg/dL (1.8-2.4) Random Vancomycin Level 17.8mcg/mL White Blood Count 2.9x10^3/uL (4.0-11.0) Red Blood Count 2.52x10^6/uL (4.30-5.70) Hemoglobin 7.1g/dL (13.0-17.5) Hematocrit 22.8% (39.0-53.0) Mean Corpuscular Volume 91fL (79-100) Mean Corpuscular Hemoglobin 28pg (25-35) Mean Corpuscular Hemoglobin Concent 31g/dL (31-37) Red Cell Distribution Width 20.6% (11.5-14.5) Platelet Count 42x10^3/uL (140-400) Neutrophils (%) (Auto) 71% (31-73) Lymphocytes (%) (Auto) 16% (24-48) Monocytes (%) (Auto) 8% (0-9) Eosinophils (%) (Auto) 3% (0-3) Basophils (%) (Auto) 3% (0-3) Neutrophils # (Auto) 2.1x10^3uL (1.8-7.7) Lymphocytes # (Auto) 0.5x10^3/uL (1.0-4.8) Monocytes # (Auto) 0.2x10^3/uL (0.0-1.1) Eosinophils # (Auto) 0.1x10^3/uL (0.0-0.7) Basophils # (Auto) 0.1x10^3/uL (0.0-0.2) Prothrombin Time 17.5SEC (11.7-14.0) Prothromb Time International Ratio 1.5 (0.8-1.1) Microbiology 08/28/16 Blood Culture - Preliminary, Resulted NO GROWTH AFTER 2 DAYS Medications Current Medications Vancomycin HCl (Vanco Per Pharmacy) 1 each PRN DAILY PRN MC SEE COMMENTS Last administered on 08/30/16 15:01; Start 08/28/16 at 18:00; Stop 08/31/16 at 07:54; Status DC Piperacillin Sod/ Tazobactam Sod (Zosyn Per Pharmacy) 1 each PRN DAILY PRN MC SEE COMMENTS; Start 08/28/16 at 18:00; Stop 08/29/16 at 14:40; Status DC Acetaminophen/ Hydrocodone Bitart 1 tab 1 tab 1X ONCE PO Last administered on 08/28/16 19:05; Start 08/28/16 at 18:00; Stop 08/28/16 at 18:01; Status DC Vancomycin HCl 2 gm/Sodium Chloride 500 ml @ 250 mls/hr 1X ONCE IV Last administered on 08/28/16 20:37; Start 08/28/16 at 18:00; Stop 08/28/16 at 19:59; Status DC Piperacillin Sod/ Tazobactam Sod 3.375 gm/Sodium Chloride 50 ml @ 100 mls/hr Q6HRS IV ; Start 08/28/16 at 18:00; Stop 08/28/16 at 18:01; Status DC Piperacillin Sod/ Tazobactam Sod/ Sodium Chloride (Zosyn/Iv Sodium Chloride 0.9 % 50ml) 50 ml @ 100 mls/hr Q8HRS IV Last administered on 08/31/16 05:57; Start 08/28/16 at 18:01; Stop 08/31/16 at 07:54; Status DC Ondansetron HCl (Zofran) 4 mg PRN Q8HRS PRN IV NAUSEA/VOMITING; Start 08/28/16 at 19:45; Stop 08/29/16 at 08:53; Status DC Morphine Sulfate 2 mg PRN Q2HR PRN IV PAIN; Start 08/28/16 at 19:45; Stop at 19:44; Status DC Acetaminophen (Tylenol) 650 mg PRN Q4HRS PRN PO FEVER; Start 08/28/16 at 19:45; Stop 08/29/16 at 19:44; Status DC Insulin Aspart (Novolog) 0-7 UNITS TIDWMEALS SQ Last administered on 08/31/16 08:08; Start 08/29/16 at 08:00 Dextrose 12.5 gm PRN Q15MIN PRN IV SEE COMMENTS; Start 08/28/16 at 19:45 Vancomycin HCl 1 each 1X ONCE MC Last administered on 08/30/16 20:46; Start at 21:00; Stop 08/30/16 at 21:01; Status DC Ondansetron HCl (Zofran) 4 mg PRN Q6HRS PRN IV NAUSEA/VOMITING; Start 08/29/16 at 08:51 Allopurinol (Zyloprim) 100 mg DAILY PO Last administered on 08/31/16 08:08; Start 08/29/16 at 09:00 Atorvastatin Calcium (Lipitor) 10 mg DAILY PO ; Start 08/29/16 at 09:00; Stop 08/29/16 at 15:11; Status DC Calcium Acetate (Phoslo) 667 mg TIDWMEALS PO Last administered on 08/31/16 07: 55; Start 08/29/16 at 12:00 Folic Acid (Folic Acid) 1 mg DAILY PO Last administered on 08/31/16 07:57; Start 08/29/16 at 09:00 Insulin Aspart (Novolog) 3 units TID SQ Last administered on 08/29/16 13:38; Start 08/29/16 at 09:00; Stop 08/29/16 at 15:11; Status DC Levothyroxine Sodium (Synthroid) 75 mcg DAILY07 PO Last administered on 07:57; Start 08/29/16 at 09:00 Midodrine (Proamatine) 2.5 mg PRN TID PRN PO TO INCREASE BLOOD PRESSURE Last administered on 08/30/16 08:49; Start 08/29/16 at 09:00; Stop 08/30/16 at 10:30; Status DC Pantoprazole Sodium (Protonix) 40 mg BID PO Last administered on 08/31/16 07:56 ; Start 08/29/16 at 09:00 Phytonadione (Mephyton) 10 mg DAILY PO Last administered on 08/31/16 07:56; Start 08/29/16 at 09:00 Sodium Bicarbonate (Sodium Bicarbonate) 650 mg BID PO Last administered on 07:57; Start 08/29/16 at 09:00 Tamsulosin HCl (Flomax) 0.4 mg DAILY PO Last administered on 08/30/16 08:48; Start 08/29/16 at 09:00; Stop 08/30/16 at 10:30; Status DC Calcium/Vitamin D (Oscal D 500mg/ 200uts) 1 tab BIDWMEALS PO Last administered on 08/31/16 07:56; Start 08/29/16 at 09:00 Non-Formulary Medication 1 inh BID IH ; Start 08/29/16 at 09:00; Status UNV Lactobacillus Acidophilus (Bacid, Lou-Bid) 1 tab DAILY PO Last administered on 08/31/16 07:57; Start 08/29/16 at 09:00 Multivitamins/ Calcium (Thera M Plus) 1 tab DAILY PO Last administered on 07:57; Start 08/29/16 at 09:00 Oxycodone HCl (Roxicodone) 15 mg PRN Q8HRS PRN PO PAIN Last administered on 08/31 07:56; Start 08/29/16 at 09:15 Albuterol/ Ipratropium 3 ml 3 ml BID NEB Last administered on 08/30/16 19:54; Start 08/29/16 at 12:00 Albumin Human (Albuminar) 100 ml @ 100 mls/hr 1X ONCE IV Last administered on 08/29/16 12:20; Start 08/29/16 at 10:30; Stop 08/29/16 at 11:29; Status DC Potassium Chloride (Klor-Con) 60 meq 1X ONCE PO Last administered on 08/29/16 12:18; Start 08/29/16 at 11:15; Stop 08/29/16 at 11:16; Status DC Vancomycin HCl 125 mg [id number] PO Last administered on 08/31/16 08:08; Start 08/29/16 at 14:00 Atorvastatin Calcium (Lipitor) 10 mg HS PO Last administered on 08/30/16 20:45 ; Start 08/29/16 at 21:00 Insulin Aspart (Novolog) 3 units TIDAC SQ Last administered on 08/31/16 08:08; Start 08/29/16 at 16:30 Midodrine (Proamatine) 5 mg BID PO Last administered on 08/31/16 07:57; Start 08/30/16 at 10:27 Metoprolol Tartrate 5 mg 5 mg 1X ONCE IVP ; Start 08/30/16 at 10:30; Stop at 14:51; Status DC Sodium Chloride 1,000 ml @ 1,000 mls/hr 1X ONCE IV Last administered on 14:45; Start 08/30/16 at 14:45; Stop 08/30/16 at 15:44; Status DC Norepinephrine Bitartrate 8 mg/ Sodium Chloride 258 ml @ 0 mls/hr CONT PRN IV SEE I/O RECORD; Start 08/30/16 at 15:00 Potassium Chloride 100 ml @ 100 mls/hr Q1H IV Last administered on 08/31/16 00 :00; Start 08/30/16 at 17:00; Stop 08/31/16 at 00:59; Status DC Magnesium Sulfate/ Dextrose 50 ml @ 25 mls/hr 1X ONCE IV Last administered on 08/30/16 17:08; Start 08/30/16 at 17:00; Stop 08/30/16 at 18:59; Status DC Magnesium Sulfate/ Dextrose 50 ml @ 25 mls/hr 1X ONCE IV ; Start 08/30/16 at 20: 00; Stop 08/30/16 at 20:00; Status DC Sodium Chloride (Iv Sodium Chloride 0.9% 1000ml Bag) 1,000 ml @ 1,000 mls/hr Q1H PRN IV hypotension; Start 08/31/16 at 08:07; Stop 08/31/16 at 14:06 Diphenhydramine HCl (Benadryl) 25 mg 1X PRN PRN IV ITCHING; Start 08/31/16 at 08 :15; Stop 09/01/16 at 08:14 Diphenhydramine HCl (Benadryl) 25 mg 1X PRN PRN IV ITCHING; Start 08/31/16 at 08 :15; Stop 09/01/16 at 08:14 Sodium Chloride (Normal Saline Flush) 10 ml 1X PRN PRN IV AP catheter pack; Start 08/31/16 at 08:15; Stop 09/01/16 at 08:14 Sodium Chloride 10 ml 10 ml 1X PRN PRN IV WOODS BOSS catheter pack; Start 08/31/16 at 08 :15; Stop 09/01/16 at 08:14 Sodium Chloride (Iv Sodium Chloride 0.9% 1000ml Bag) 1,000 ml @ 400 mls/hr Q2H30M PRN IV PATENCY; Start 08/31/16 at 08:07; Stop 08/31/16 at 20:06 Info (PHARMACY MONITORING -- do not chart) 1 each PRN DAILY PRN MC SEE COMMENTS ; Start 08/31/16 at 08:15 Active Scripts Active Midodrine Hcl 2.5 Mg Tablet 2.5 Mg PO PRN TID PRN Reported Oxycodone Hcl 15 Mg Tablet 1 Tab PO TID PRN Novolog Flexpen (Insulin Aspart) 100 Unit/1 Ml Insuln.pen 3 Unit SQ TID Flomax (Tamsulosin Hcl) 0.4 Mg Cap.er.24h 0.4 Mg PO DAILY Mephyton (Phytonadione) 5 Mg Tablet 10 Mg PO DAILY Phoslo (Calcium Acetate) 667 Mg Capsule 2 Cap PO TIDWMEALS Allopurinol 100 Mg Tablet 1 Tab PO DAILY Oyster Shell Calcium-Vit D Tab (Calcium Carbonate/Vitamin D2) 1 Each Tablet 1 Each PO BID Acidophilus Lactobacillus (Lactobacillus Acidophilus) 1 Each Capsule 1 Each PO DAILY Acetaminophen 325 Mg Tablet 650 Mg PO PRN Q4HRS PRN Sodium Bicarbonate 650 Mg Tablet 1 Tab PO BID Protonix (Pantoprazole Sodium) 40 Mg Tablet.dr 1 Tab PO BID Multi-Vitamin Daily (Multivitamin) 1 Each Tablet 1 Each PO DAILY Combivent Respimat Inhal (Ipratropium/Albuterol Sulfate) 4 Gm Aer.w.adap 1 Inh IH BID Atorvastatin Calcium 10 Mg Tablet 1 Tab PO DAILY Folic Acid 1 Mg Tablet 1 Mg PO DAILY Levothyroxine Sodium 25 Mcg Tablet 75 Mcg PO DAILYAC Vitals/I & O Vital Sign - Last 24 Hours 08/30/16 08/30/16 08/30/16 08/30/16 10:48 11:00 13:18 14:42 Temp 97.5 97.9 97.5 97.9 Pulse 62 130 124 40 Resp 18 18 B/P 80/53 70/40 58/34 Pulse Ox 99 98 O2 Delivery Room Air Room Air 08/30/16 08/30/16 08/30/16 08/30/16 14:45 15:25 16:17 17:00 Temp 98.1 98.1 Pulse 120 103 124 Resp 18 B/P 78/49 91/62 74/56 Pulse Ox 98 08/30/16 08/30/16 08/30/16 08/30/16 18:00 18:31 19:49 20:00 Temp 97.6 97.6 Pulse 102 105 Resp 18 21 B/P 85/57 84/43 Pulse Ox 97 96 O2 Delivery Room Air Room Air Room Air 08/30/16 08/30/16 08/30/16 08/30/16 20:46 20:54 21:00 21:57 Pulse 102 138 Resp 20 20 20 B/P 84/43 84/43 Pulse Ox 94 O2 Delivery Room Air Room Air Room Air 08/30/16 08/30/16 08/31/16 08/31/16 22:00 23:00 00:00 01:00 Temp 98.0 98.0 Pulse 135 127 99 104 Resp 18 22 16 18 B/P 95/54 77/44 97/58 105/44 O2 Delivery Room Air Room Air Room Air Room Air 08/31/16 08/31/16 08/31/16 08/31/16 02:00 03:00 04:00 05:00 Temp 98.6 98.6 Pulse 101 136 131 96 Resp 20 19 18 20 B/P 93/54 94/56 99/59 99/57 O2 Delivery Room Air Room Air Room Air Room Air 08/31/16 08/31/16 08/31/16 08/31/16 06:00 07:00 07:56 07:57 Pulse 90 93 95 Resp 16 18 22 B/P 90/54 89/52 91/51 Pulse Ox 96 97 O2 Delivery Room Air Room Air Room Air 08/31/16 08/31/16 08:00 08:00 Temp 98.0 98.0 Pulse 93 Resp 18 B/P 99/61 Pulse Ox 96 O2 Delivery Room Air Room Air Intake and Output 3/11/1108/30/16 08/31/16 15:00 23:00 07:00 Intake Total 50 ml 1600 ml 1180 ml Balance 50 ml 1600 ml 1180 ml HECTOR CASTRO MD Aug 31, 2016 09:06
--- NOTE | 2016-08-31 09:29 | PDOC ---
Subjective: Subjective: Last GI consult 08/25/16. Doesn't say much per usual. Thinks abd might need to be drained again but feels okay. Diarrhea. Objective: Objective: Per RN - unpleasant. Vital Signs: Vital Signs Date Time Temp Pulse Resp B/P Pulse Ox O2 Delivery O2 Flow Rate FiO2 08/31/16 09:07 20 96 Room Air 08/31/16 09:00 95 99/65 08/31/16 08:00 98.0 98.0 Labs: Laboratory Tests Test 08/30/16 11:17 08/30/16 15:20 08/30/16 20:50 08/31/16 08:00 Glucose (Fingerstick) 222mg/dL 220mg/dL Sodium Level 144mmol/L 144mmol/L Potassium Level 2.5mmol/L 3.4mmol/L Chloride Level 112mmol/L 111mmol/L Carbon Dioxide Level 18mmol/L 21mmol/L Anion Gap 14 12 Blood Urea Nitrogen 38mg/dL 41mg/dL Creatinine 6.0mg/dL 6.3mg/dL Estimated GFR (Cockcroft-Gault) 11.7 11.1 Glucose Level 231mg/dL 249mg/dL Lactic Acid Level 2.8mmol/L Calcium Level 7.0mg/dL 7.1mg/dL Magnesium Level 1.3mg/dL Random Vancomycin Level 17.8mcg/mL White Blood Count 2.9x10^3/uL Red Blood Count 2.52x10^6/uL Hemoglobin 7.1g/dL Hematocrit 22.8% Mean Corpuscular Volume 91fL Mean Corpuscular Hemoglobin 28pg Mean Corpuscular Hemoglobin Concent 31g/dL Red Cell Distribution Width 20.6% Platelet Count 42x10^3/uL Neutrophils (%) (Auto) 71% Lymphocytes (%) (Auto) 16% Monocytes (%) (Auto) 8% Eosinophils (%) (Auto) 3% Basophils (%) (Auto) 3% Neutrophils # (Auto) 2.1x10^3uL Lymphocytes # (Auto) 0.5x10^3/uL Monocytes # (Auto) 0.2x10^3/uL Eosinophils # (Auto) 0.1x10^3/uL Basophils # (Auto) 0.1x10^3/uL Prothrombin Time 17.5SEC Prothromb Time International Ratio 1.5 Imaging: Abd US 08/30/16 Four-quadrant ultrasound abdomen demonstrates large amount of ascites. PE: GEN: NAD, sitting up eating breakfast LUNGS:clear anteriorly HEART: RRR ABD: distended/tight, doesn't seem too uncomfortable NEURO/PSYCH: A & O 3, quiet A/P: Cirrhosis, ascites -Hep C, alcohol -requires frequent admissions, frequent paracentesis - last 08/26/16 (9000cc removed) -INR 1.5 C Diff -on vanco w/ ID Cellulitis ESRD, hypotension, anemia/thrombocytopenia -- Will ask for paracentesis again. SARAVANAN KEARNEY Aug 31, 2016 09:29
--- NOTE | 2016-08-31 09:44 | PDOC2 ---
CARDIAC CONSULT DATE OF CONSULT Date of Consult DATE: 08/31/16 TIME: 09:33 REASON FOR CONSULT Reason for Consult: Tachy, hypotension REFERRING PHYSICIAN Referring Physician: Kimberly SOURCE Source: Chart review, Patient HISTORY OF PRESENT ILLNESS HISTORY OF PRESENT ILLNESS This is a pleasant but porr historian male admitted for main complain of right arm swelling. Apparently he also missed his last HD. He has ESRD with underlying cirrhosis/ascites with frequent past paracentesis. Significant discussion in regards to aggressive treatment measures and noted that he would like to continue with aggressive care. Upon admission he was also noted with tachycardia and hypotension prompting this consult. Currently he is receiving HD in which no fluid is being taken off. His SBP is in the 80s with HR in the 140s. At this time pt remains asymptomatic and in no distress. Denies any chest pain, SOA nor palpitations. PAST MEDICAL HISTORY Past Medical History Cardiovascular: CHF, Hyperlipidemia, Other (hypotension) Pulmonary: COPD GI: No pertinent hx Heme/Onc: Anemia NOS, blood transfusion Hepatobiliary: Cirrhosis, Hep A/B/C (C) Psych: No pertinent hx Musculoskeletal: Osteoarthritis, Other (DDD) Rheumatologic: Gout Infectious disease: No pertinent hx ENT: No pertinent hx Renal/: Chronic renal failure (on HD) Endocrine: No pertinent hx, Hypothyroidism PAST SURGICAL HISTORY Past Surgical History multiple paracentesis FAMILY HISTORY Family History: Hypertension SOCIAL HISTORY Smoke: No ALCOHOL: none (quit) Drugs: None Lives: Long-Term CURRENT MEDICATIONS CURRENT MEDICATIONS Current Medications Medications (Trade) Dose Ordered Sig/Madi Route PRN Reason Start Time Stop Time Status Last Admin Dose Admin Vancomycin HCl 1 each 1X ONCE MC 08/30/16 21:00 08/30/16 21:01 DC 08/30/16 20:46 Midodrine 5 mg 5 mg BID PO 08/30/16 10:27 08/31/16 07:57 Sodium Chloride 1,000 ml @ 1,000 mls/hr 1X ONCE IV 08/30/16 14:45 08/30/16 15:44 DC 08/30/16 14:45 Potassium Chloride 100 ml @ 100 mls/hr Q1H IV 08/30/16 17:00 08/31/16 00:59 DC 08/31/16 00:00 Magnesium Sulfate/ Dextrose (Magnesium Sulfate PREMIX 2GM) 50 ml @ 25 mls/hr 1X ONCE IV 08/30/16 17:00 08/30/16 18:59 DC 08/30/16 17:08 ALLERGIES ALLERGIES: Coded Allergies: I S O L A T I O N *CONTACT* (Verified Allergy, Unknown, C-DIFF ISOLATION, 06/23/16) No Known Medication Allergies (Verified Allergy, Unknown, 06/24/16) ROS Review of System unreliable, poor historian PHYSICAL EXAM General: Alert, Cooperative, No acute distress HEENT: Atraumatic, Mucous membr. moist/pink Lungs: Other (bibasilar crackles) Heart: Regular rate (sinus tachycardia), Normal S1, Normal S2, Other (2/6 systolic murmur to LLS border) Abdomen: Soft, Other (ascites) Extremities: No cyanosis, Other (3+ bilateral LE pitting edema) Skin: No breakdown Neuro: Normal speech, Sensation intact Psych/Mental Status: Mental status NL, Other (calm) MUSCULOSKELETAL: Osteoarthritic changes both hands VITALS VITALS Vital Signs Date Time Temp Pulse Resp B/P Pulse Ox O2 Delivery O2 Flow Rate FiO2 08/31/16 09:07 20 96 Room Air 08/31/16 09:00 95 99/65 08/31/16 08:00 98.0 98.0 LABS Lab: Laboratory Tests Test 08/30/16 11:17 08/30/16 15:20 08/30/16 20:50 08/31/16 08:00 Glucose (Fingerstick) 222mg/dL (70-99) 220mg/dL (70-99) Sodium Level 144mmol/L (136-145) 144mmol/L (136-145) Potassium Level 2.5mmol/L (3.5-5.1) 3.4mmol/L (3.5-5.1) Chloride Level 112mmol/L (98-107) 111mmol/L (98-107) Carbon Dioxide Level 18mmol/L (21-32) 21mmol/L (21-32) Anion Gap 14 (6-14) 12 (6-14) Blood Urea Nitrogen 38mg/dL (8-26) 41mg/dL (8-26) Creatinine 6.0mg/dL (0.7-1.3) 6.3mg/dL (0.7-1.3) Estimated GFR (Cockcroft-Gault) 11.7 11.1 Glucose Level 231mg/dL (70-99) 249mg/dL (70-99) Lactic Acid Level 2.8mmol/L (0.4-2.0) Calcium Level 7.0mg/dL (8.5-10.1) 7.1mg/dL (8.5-10.1) Magnesium Level 1.3mg/dL (1.8-2.4) Random Vancomycin Level 17.8mcg/mL White Blood Count 2.9x10^3/uL (4.0-11.0) Red Blood Count 2.52x10^6/uL (4.30-5.70) Hemoglobin 7.1g/dL (13.0-17.5) Hematocrit 22.8% (39.0-53.0) Mean Corpuscular Volume 91fL (79-100) Mean Corpuscular Hemoglobin 28pg (25-35) Mean Corpuscular Hemoglobin Concent 31g/dL (31-37) Red Cell Distribution Width 20.6% (11.5-14.5) Platelet Count 42x10^3/uL (140-400) Neutrophils (%) (Auto) 71% (31-73) Lymphocytes (%) (Auto) 16% (24-48) Monocytes (%) (Auto) 8% (0-9) Eosinophils (%) (Auto) 3% (0-3) Basophils (%) (Auto) 3% (0-3) Neutrophils # (Auto) 2.1x10^3uL (1.8-7.7) Lymphocytes # (Auto) 0.5x10^3/uL (1.0-4.8) Monocytes # (Auto) 0.2x10^3/uL (0.0-1.1) Eosinophils # (Auto) 0.1x10^3/uL (0.0-0.7) Basophils # (Auto) 0.1x10^3/uL (0.0-0.2) Prothrombin Time 17.5SEC (11.7-14.0) Prothromb Time International Ratio 1.5 (0.8-1.1) ECHOCARDIOGRAM ECHOCARDIOGRAM <Conclusion> The left ventricle is normal size. The left ventricular systolic function is normal and the ejection fraction is within normal range. The Ejection Fraction is 60-65%. There is moderate concentric left ventricular hypertrophy. There is no significant aortic valvular stenosis. Doppler and Color Flow revealed no significant aortic regurgitation. Doppler and Color-flow revealed trace mitral regurgitation. Doppler and Color Flow revealed no tricuspid valve regurgitation noted. There is a trace circumferential pericardial effusion with no hemodynamic significance. DATE: 05/08/16 1037 ASSESSMENT/PLAN ASSESSMENT/PLAN 1. Right arm cellulitis: neg for DVT 2. Cirrhosis with ascites/hep C 3. Pancytopenia 4. Anemia of chronic disease: Hgb 7.1 5. C-diff 6. ESRD with noted hypokalemia/hypocalcemia: currently having HD 7. Hypotension: multifactorial with low intravascular volume and likely venous compression promoting preload reduction. SBP improved in 100s 8. Sinus tachycardia: extracardiac. Reactive to above concurrent conditions. Recent TTE unremarkable for significant changes 9. Protein malnutrition 10. Hypothyroidism: TSH remains not therapeutic 8.2, 8.1 on 08/10/16 11. DM2 Recommendations 1. Continue regimen per ID/GI/nephrology 2. Would recommend blood transfusion, defer to PCP 3. Maintain fluid/lyte balance. 4. Agree with midodrine. Monitor for any SVT development aside from ST 5. No further cardiac workup warranted at this time 6. Maintain on side lying positioning Problems: BOWEN BALLARD APRN Aug 31, 2016 09:44
--- NOTE | 2016-08-31 10:36 | EKG ---
[address] [place] [address] Test Date: 2016-08-31 Test Time: 10:31:24 Pat Name: MARSHA HENRY Department: Room: 109 1 Gender: M Senior Advocate: 3 : 1960 Requested By: BOWEN BALLARD Order Number: [id number] Reading MD: Kaiden Lou Measurements Intervals [place] Rate: 150 P: 180 NV: 92 QRS: 26 QRSD: 90 T: -1 QT: 282 QTc: 448 Interpretive Statements SINUS TACHYCARDIA R-S TRANSITION ZONE IN V LEADS DISPLACED TO THE LEFT LOW LIMB LEAD VOLTAGE NONSPECIFIC ST-T WAVE CHANGES. RI6.01 Compared to ECG 08/07/2016 15:40:12 Electronically Signed On 08-31-2016 14:21:51 SECURITY COORDINATOR by Kaiden Lou
[2016-08-31] MEDS ORDERED: ALBUMIN HUMAN 25% 200 ML IV STA (10:48)
[2016-08-31] MEDS: IPRATRPIUM/ALBUTEROL 0.5/2.5MG 3 ML NEBU. NEB SCH ×2 (10:49→21:05)
--- NOTE | 2016-08-31 11:27 | PDOC ---
Dialysis Progress Note Dialysis Note Dialysis Note Seen on Hemodialysis, tolerating treatment poorly Vitals on Hemodialysis: 82/53 146 General Appearance: weak and emaciated Awake: Alert Oriented x 0 Neck: No JVD or JVP Chest: CTA [place] Heart: S1 S2 ? Murmur Abdomen - Soft NT Distended Extremities - + Edema ESRD: Dialysis as below F 180 NR 3.0 Hrs 4 K 2.5 Ca 140 Na 35 HC03 Qb 350 + Qd 500+ Heparin 0 Units Uf 0 Kgs or to dry weight as tolerated getting 50 gms of 25% Albumin to maintain Hemodynamic stability Treatment plan reviewed and discussed with metal polisher and buffer apprentice Will reval on Hd once IV Alb given. Vitals Vital Signs Vital Signs Date Time Temp Pulse Resp B/P Pulse Ox O2 Delivery O2 Flow Rate FiO2 08/31/16 11:00 147 18 82/43 96 Room Air 08/31/16 08:00 98.0 98.0 Labs Last Labs Laboratory Tests Test 08/29/16 12:12 08/29/16 16:45 08/29/16 20:17 08/30/16 07:48 Glucose (Fingerstick) 164mg/dL (70-99) 81mg/dL (70-99) 194mg/dL (70-99) 192mg/dL (70-99) Test 08/30/16 11:17 08/30/16 15:20 08/30/16 20:50 08/31/16 08:00 Glucose (Fingerstick) 222mg/dL (70-99) 220mg/dL (70-99) Sodium Level 144mmol/L (136-145) 144mmol/L (136-145) Potassium Level 2.5mmol/L (3.5-5.1) 3.4mmol/L (3.5-5.1) Chloride Level 112mmol/L (98-107) 111mmol/L (98-107) Carbon Dioxide Level 18mmol/L (21-32) 21mmol/L (21-32) Anion Gap 14 (6-14) 12 (6-14) Blood Urea Nitrogen 38mg/dL (8-26) 41mg/dL (8-26) Creatinine 6.0mg/dL (0.7-1.3) 6.3mg/dL (0.7-1.3) Estimated GFR (Cockcroft-Gault) 11.7 11.1 Glucose Level 231mg/dL (70-99) 249mg/dL (70-99) Lactic Acid Level 2.8mmol/L (0.4-2.0) Calcium Level 7.0mg/dL (8.5-10.1) 7.1mg/dL (8.5-10.1) Magnesium Level 1.3mg/dL (1.8-2.4) 1.8mg/dL (1.8-2.4) Random Vancomycin Level 17.8mcg/mL White Blood Count 2.9x10^3/uL (4.0-11.0) Red Blood Count 2.52x10^6/uL (4.30-5.70) Hemoglobin 7.1g/dL (13.0-17.5) Hematocrit 22.8% (39.0-53.0) Mean Corpuscular Volume 91fL (79-100) Mean Corpuscular Hemoglobin 28pg (25-35) Mean Corpuscular Hemoglobin Concent 31g/dL (31-37) Red Cell Distribution Width 20.6% (11.5-14.5) Platelet Count 42x10^3/uL (140-400) Neutrophils (%) (Auto) 71% (31-73) Lymphocytes (%) (Auto) 16% (24-48) Monocytes (%) (Auto) 8% (0-9) Eosinophils (%) (Auto) 3% (0-3) Basophils (%) (Auto) 3% (0-3) Neutrophils # (Auto) 2.1x10^3uL (1.8-7.7) Lymphocytes # (Auto) 0.5x10^3/uL (1.0-4.8) Monocytes # (Auto) 0.2x10^3/uL (0.0-1.1) Eosinophils # (Auto) 0.1x10^3/uL (0.0-0.7) Basophils # (Auto) 0.1x10^3/uL (0.0-0.2) Prothrombin Time 17.5SEC (11.7-14.0) Prothromb Time International Ratio 1.5 (0.8-1.1) Thyroid Stimulating Hormone (TSH) 8.247uIU/mL (0.358-3.74) Laboratory Tests Test 3/5/17 15:20 08/30/16 20:50 08/31/16 08:00 Sodium Level 144mmol/L (136-145) 144mmol/L (136-145) Potassium Level 2.5mmol/L (3.5-5.1) 3.4mmol/L (3.5-5.1) Chloride Level 112mmol/L (98-107) 111mmol/L (98-107) Carbon Dioxide Level 18mmol/L (21-32) 21mmol/L (21-32) Anion Gap 14 (6-14) 12 (6-14) Blood Urea Nitrogen 38mg/dL (8-26) 41mg/dL (8-26) Creatinine 6.0mg/dL (0.7-1.3) 6.3mg/dL (0.7-1.3) Estimated GFR (Cockcroft-Gault) 11.7 11.1 Glucose Level 231mg/dL (70-99) 249mg/dL (70-99) Lactic Acid Level 2.8mmol/L (0.4-2.0) Calcium Level 7.0mg/dL (8.5-10.1) 7.1mg/dL (8.5-10.1) Magnesium Level 1.3mg/dL (1.8-2.4) 1.8mg/dL (1.8-2.4) Random Vancomycin Level 17.8mcg/mL White Blood Count 2.9x10^3/uL (4.0-11.0) Red Blood Count 2.52x10^6/uL (4.30-5.70) Hemoglobin 7.1g/dL (13.0-17.5) Hematocrit 22.8% (39.0-53.0) Mean Corpuscular Volume 91fL (79-100) Mean Corpuscular Hemoglobin 28pg (25-35) Mean Corpuscular Hemoglobin Concent 31g/dL (31-37) Red Cell Distribution Width 20.6% (11.5-14.5) Platelet Count 42x10^3/uL (140-400) Neutrophils (%) (Auto) 71% (31-73) Lymphocytes (%) (Auto) 16% (24-48) Monocytes (%) (Auto) 8% (0-9) Eosinophils (%) (Auto) 3% (0-3) Basophils (%) (Auto) 3% (0-3) Neutrophils # (Auto) 2.1x10^3uL (1.8-7.7) Lymphocytes # (Auto) 0.5x10^3/uL (1.0-4.8) Monocytes # (Auto) 0.2x10^3/uL (0.0-1.1) Eosinophils # (Auto) 0.1x10^3/uL (0.0-0.7) Basophils # (Auto) 0.1x10^3/uL (0.0-0.2) Prothrombin Time 17.5SEC (11.7-14.0) Prothromb Time International Ratio 1.5 (0.8-1.1) Glucose (Fingerstick) 220mg/dL (70-99) Thyroid Stimulating Hormone (TSH) 8.247uIU/mL (0.358-3.74) Assessment Assessment Problems Medical Problems: (1) Cellulitis Status: Acute (2) Dialysis patient Status: Acute (3) Septic shock Status: Acute Problems: Plan Plan of Care Problems Medical Problems: (1) Cellulitis Status: Acute (2) Dialysis patient Status: Acute (3) Septic shock Status: Acute CELINA CLIFTON MD Aug 31, 2016 11:27
[2016-08-31] MEDS ORDERED: LIDOCAINE 1% / SOD BICARB 8.4% 20 ML VIAL. IJ ONE (13:30)
--- NOTE | 2016-08-31 13:58 | PDOC ---
Exam Lgsw Lgsw Dennis Belt Cleaner Belt Cleaner Dustin Perez Pre-Procedure Diagnosis Pre-Procedure Diagnosis 56 YO male with ESLD, ESRD, and recurrent, symptomatic, large volume ascites Post-Procedure Diagnosis Post-Procedure Diagnosis Same Procedure Performed Procedure Performed Sono guided Tx paracentesis Type of Anesthesia Type of Anesthesia Local Estimated Blood Loss EBL: Trace Specimens Specimans 5600 cc straw-clear ascites removed and discarded. Condition of Patient Condition of Patient Stable. No apparent complication. Disposition Disposition From IR return to 109. F/u with HIMS, Renal, and GI. Full report to follow. KYM FUNK MD Aug 31, 2016 13:58
[2016-08-31 16:25] LABS: BASO % 1 % (0-3); EOS % 3 % (0-3); HEMATOCRIT 26.8 % (39.0-53.0); HEMOGLOBIN 8.5 g/dL (13.0-17.5); LYMPH # 0.4 x10^3/uL (1.0-4.8); LYMPH % 15 % (24-48); MEAN CORPUSCULAR HEMOGLOBIN 28 pg (25-35); MEAN CORPUSCULAR HGB CONC 32 g/dL (31-37); MEAN CORPUSCULAR VOLUME 88 fL (79-100); MONO % 12 % (0-9); NEUT % 70 % (31-73); PLATELET COUNT 33 x10^3/uL (140-400); RED BLOOD COUNT 3.03 x10^6/uL (4.30-5.70); RED CELL DISTRIBUTION WIDTH 18.8 % (11.5-14.5); WHITE BLOOD COUNT 2.8 x10^3/uL (4.0-11.0)
--- NOTE | 2016-08-31 16:25 | RAD ---
Ultrasound-guided therapeutic paracentesis Indication: 56-year-old male with end-stage liver disease, end-stage renal disease, and recurrent/refractory, symptomatic, large volume ascites. Image guided therapeutic paracentesis has been requested. Anesthesia: Local only Procedure: Informed consent was obtained from the patient. This procedure was performed in the angiography suite, with the patient in his hospital bed. Preliminary ultrasound examination confirmed the presence of a large volume of abdominal/pelvic ascites. A right lateral abdominal peritoneal fluid collection, suitable for sono guided paracentesis, was selected, was marked, and was documented with a single hard copy ultrasound image. That area was then prepped and draped in the usual sterile fashion. Using aseptic technique, local anesthesia, and direct ultrasound guidance, a 21-gauge micropuncture needle was successfully introduced into the selected peritoneal fluid collection. The 21-gauge needle was exchanged over a microguidewire for a micropuncture sheath, which was, in turn, exchanged over a 0.035 inch guidewire for a 6 Hungarian drainage catheter. Approximately 5600 cc of straw-clear ascites was removed, and was discarded. The drainage catheter was then removed and a sterile dressing was applied. Patient tolerated the procedure well without apparent complication. Impression: Successful, uneventful ultrasound-guided therapeutic paracentesis, as described.
[2016-08-31 16:52] LABS: ALBUMIN 2.4 g/dL (3.4-5.0); ALBUMIN/GLOBULIN RATIO 0.8 (1.0-1.7); CALCIUM 7.3 mg/dL (8.5-10.1); CREATININE 3.5 mg/dL (0.7-1.3); GFR 21.9; POTASSIUM 3.1 mmol/L (3.5-5.1); TOTAL BILIRUBIN 0.7 mg/dL (0.2-1.0); TOTAL PROTEIN 5.4 g/dL (6.4-8.2)
[2016-08-31] MEDS: ATORVASTATIN CALCIUM 10 MG TABLET. PO SCH (21:17)
[2016-09-01 03:00] VITALS: BP 88/51
[2016-09-01] MEDS: LEVOTHYROXINE 75 MCG TABLET PO SCH (06:18)
[2016-09-01 07:00] VITALS: BP 105/66
--- NOTE | 2016-09-01 07:56 | PDOC ---
Infectious Disease Note Subjective Subjective says feeling better, no diarrhea, pain in arm is better ROS ROS no n/v/d/cp Vital Sign Vital Signs Vital Signs Date Time Temp Pulse Resp B/P Pulse Ox O2 Delivery O2 Flow Rate FiO2 09/01/16 03:00 99.1 89 20 88/51 100 Room Air 99.1 Physical Exam PHYSICAL EXAM GENERAL: NAD, Alert HEENT: PERRL, OC/OP NECK: Supple, no JVD, no LN LUNGS: Clear HEART: S1S2, no gallop, no murmur ABD: Soft, NT, no organomegaly, no rebound, ascites EXT: No edema, no cyanosis HOISTER: Alert, oriented x 3, no focal neurologic deficit SKIN: No rash IV: ok Labs Lab Laboratory Tests Test 08/31/16 08:00 08/31/16 11:58 08/31/16 16:15 08/31/16 20:02 White Blood Count 2.9x10^3/uL (4.0-11.0) 2.8x10^3/uL (4.0-11.0) Red Blood Count 2.52x10^6/uL (4.30-5.70) 3.03x10^6/uL (4.30-5.70) Hemoglobin 7.1g/dL (13.0-17.5) 8.5g/dL (13.0-17.5) Hematocrit 22.8% (39.0-53.0) 26.8% (39.0-53.0) Mean Corpuscular Volume 91fL (79-100) 88fL (79-100) Mean Corpuscular Hemoglobin 28pg (25-35) 28pg (25-35) Mean Corpuscular Hemoglobin Concent 31g/dL (31-37) 32g/dL (31-37) Red Cell Distribution Width 20.6% (11.5-14.5) 18.8% (11.5-14.5) Platelet Count 42x10^3/uL (140-400) 33x10^3/uL (140-400) Neutrophils (%) (Auto) 71% (31-73) 70% (31-73) Lymphocytes (%) (Auto) 16% (24-48) 15% (24-48) Monocytes (%) (Auto) 8% (0-9) 12% (0-9) Eosinophils (%) (Auto) 3% (0-3) 3% (0-3) Basophils (%) (Auto) 3% (0-3) 1% (0-3) Neutrophils # (Auto) 2.1x10^3uL (1.8-7.7) 1.9x10^3uL (1.8-7.7) Lymphocytes # (Auto) 0.5x10^3/uL (1.0-4.8) 0.4x10^3/uL (1.0-4.8) Monocytes # (Auto) 0.2x10^3/uL (0.0-1.1) 0.3x10^3/uL (0.0-1.1) Eosinophils # (Auto) 0.1x10^3/uL (0.0-0.7) 0.1x10^3/uL (0.0-0.7) Basophils # (Auto) 0.1x10^3/uL (0.0-0.2) 0.0x10^3/uL (0.0-0.2) Prothrombin Time 17.5SEC (11.7-14.0) Prothromb Time International Ratio 1.5 (0.8-1.1) Sodium Level 144mmol/L (136-145) 146mmol/L (136-145) Potassium Level 3.4mmol/L (3.5-5.1) 3.1mmol/L (3.5-5.1) Chloride Level 111mmol/L (98-107) 110mmol/L (98-107) Carbon Dioxide Level 21mmol/L (21-32) 27mmol/L (21-32) Anion Gap 12 (6-14) 9 (6-14) Blood Urea Nitrogen 41mg/dL (8-26) 21mg/dL (8-26) Creatinine 6.3mg/dL (0.7-1.3) 3.5mg/dL (0.7-1.3) Estimated GFR (Cockcroft-Gault) 11.1 21.9 Glucose Level 249mg/dL (70-99) 119mg/dL (70-99) Glucose (Fingerstick) 220mg/dL (70-99) 202mg/dL (70-99) 239mg/dL (70-99) Calcium Level 7.1mg/dL (8.5-10.1) 7.3mg/dL (8.5-10.1) Magnesium Level 1.8mg/dL (1.8-2.4) Thyroid Stimulating Hormone (TSH) 8.247uIU/mL (0.358-3.74) BUN/Creatinine Ratio 6 (6-20) Total Bilirubin 0.7mg/dL (0.2-1.0) Aspartate Amino Transf (AST/SGOT) 41U/L (15-37) Alanine Aminotransferase (ALT/SGPT) 29U/L (16-63) Alkaline Phosphatase 151U/L (46-116) Total Protein 5.4g/dL (6.4-8.2) Albumin 2.4g/dL (3.4-5.0) Albumin/Globulin Ratio 0.8 (1.0-1.7) Objective Assessment Swelling of right arm w/ cellulitis. US neg DVT. Leukopenia/Pancytopenia Recurrent c. diff (06/2016, 07/2016), 3/4 CKD on HD Cirrhosis of liver with ascites. s/p paracentesis 08/26. Hepatitis C Plan Plan of Care po vanc, Arm elevation Monitor labs/BC CARMINE CLIFTON MD Sep 01, 2016 07:56
[2016-09-01] MEDS: INSULIN ASPART 300 UNITS/3 ML INSULN.PEN SQ SCH ×2 (08:17→08:19)
[2016-09-01] MEDS: CALCIUM CARB/VIT D3 500/200 TABLET PO SCH (08:27)
[2016-09-01] MEDS: PANTOPRAZOLE 40 MG TABLET. PO SCH (08:27)
[2016-09-01] MEDS: ALLOPURINOL 100 MG TABLET. PO SCH (08:27)
[2016-09-01] MEDS: SODIUM BICARBONATE 650 MG TABLET. PO SCH (08:27)
[2016-09-01] MEDS: MULTIVITAMIN with MINERAL TABLET. PO SCH (08:27)
[2016-09-01] MEDS: VANCOMYCIN 125 MG/2.5 ML ORAL SOLUTION. PO SCH (08:27)
[2016-09-01] MEDS: FOLIC ACID 1 MG TABLET PO SCH (08:27)
[2016-09-01] MEDS: CALCIUM ACETATE 667 MG CAPSULE PO SCH (08:28)
[2016-09-01] MEDS: PHYTONADIONE (VIT K1) 5 MG TABLET PO SCH (08:28)
[2016-09-01] MEDS: OXYCODONE IR 5 MG TABLET. PO PRN (08:28)
[2016-09-01] MEDS: LACTOBACILLUS ACIDOPH & BULGAR 1 TABLET. PO SCH (08:28)
[2016-09-01 08:29] VITALS: BP 105/66
[2016-09-01] MEDS: MIDODRINE 2.5 MG TABLET PO SCH (08:29)
[2016-09-01] MEDS ORDERED: POTASSIUM CHLORIDE 20 MEQ TABLET.ER. PO ONE (09:00)
--- NOTE | 2016-09-01 09:09 | PDOC ---
Subjective: Subjective: Eyes closed, did not awaken. Objective: Objective: Per RN - DC to [facility] today. Vital Signs: Vital Signs Date Time Temp Pulse Resp B/P Pulse Ox O2 Delivery O2 Flow Rate FiO2 09/01/16 08:29 96 105/66 09/01/16 08:28 18 96 Room Air 09/01/16 07:00 99.3 99.3 Labs: Laboratory Tests Test 08/31/16 11:58 08/31/16 16:15 08/31/16 20:02 09/01/16 07:55 Glucose (Fingerstick) 202mg/dL 239mg/dL 236mg/dL White Blood Count 2.8x10^3/uL Red Blood Count 3.03x10^6/uL Hemoglobin 8.5g/dL Hematocrit 26.8% Mean Corpuscular Volume 88fL Mean Corpuscular Hemoglobin 28pg Mean Corpuscular Hemoglobin Concent 32g/dL Red Cell Distribution Width 18.8% Platelet Count 33x10^3/uL Neutrophils (%) (Auto) 70% Lymphocytes (%) (Auto) 15% Monocytes (%) (Auto) 12% Eosinophils (%) (Auto) 3% Basophils (%) (Auto) 1% Neutrophils # (Auto) 1.9x10^3uL Lymphocytes # (Auto) 0.4x10^3/uL Monocytes # (Auto) 0.3x10^3/uL Eosinophils # (Auto) 0.1x10^3/uL Basophils # (Auto) 0.0x10^3/uL Sodium Level 146mmol/L Potassium Level 3.1mmol/L Chloride Level 110mmol/L Carbon Dioxide Level 27mmol/L Anion Gap 9 Blood Urea Nitrogen 21mg/dL Creatinine 3.5mg/dL Estimated GFR (Cockcroft-Gault) 21.9 BUN/Creatinine Ratio 6 Glucose Level 119mg/dL Calcium Level 7.3mg/dL Total Bilirubin 0.7mg/dL Aspartate Amino Transf (AST/SGOT) 41U/L Alanine Aminotransferase (ALT/SGPT) 29U/L Alkaline Phosphatase 151U/L Total Protein 5.4g/dL Albumin 2.4g/dL Albumin/Globulin Ratio 0.8 PE: GEN: NAD ABD: appears less distended NEURO/PSYCH: eyes closed A/P: Cirrhosis, ascites -Hep C, alcohol -requires frequent admissions, frequent paracentesis - last 08/31/16 (5600cc removed) C Diff -on vanco w/ ID -- To [facility] today - okSARAVANAN Watts Sep 01, 2016 09:09
[2016-09-01] MEDS: IPRATRPIUM/ALBUTEROL 0.5/2.5MG 3 ML NEBU. NEB SCH (09:34)
--- NOTE | 2016-09-01 11:27 | PDOC ---
CARDIO Progress Notes Date and Time Date of Service 09/01/2016 Time of Evaluation 1010 Subjective Subjective: No Chest Pain, No shortness of breath, No Palpitations, Other ( wanting to go home) Vitals Vitals Vital Signs Date Time Temp Pulse Resp B/P Pulse Ox O2 Delivery O2 Flow Rate FiO2 09/01/16 09:35 97 Room Air 09/01/16 09:17 18 09/01/16 08:29 96 105/66 09/01/16 07:00 99.3 99.3 Weight Weight [ ] Input and Output Intake and Output Intake and Output 09/01/16 07:00 Intake Total 1520 ml Output Total 5602 ml Balance -4082 ml Intake Oral 350 ml Blood Product 400 ml Blood Product IV Normal Saline Flush 770 ml Output Stool Total 2 ml Other 5600 ml # Bowel Movements 3 Laboratory Labs Laboratory Tests Test 08/31/16 11:58 08/31/16 16:15 08/31/16 20:02 09/01/16 07:55 Glucose (Fingerstick) 202mg/dL (70-99) 239mg/dL (70-99) 236mg/dL (70-99) White Blood Count 2.8x10^3/uL (4.0-11.0) Red Blood Count 3.03x10^6/uL (4.30-5.70) Hemoglobin 8.5g/dL (13.0-17.5) Hematocrit 26.8% (39.0-53.0) Mean Corpuscular Volume 88fL (79-100) Mean Corpuscular Hemoglobin 28pg (25-35) Mean Corpuscular Hemoglobin Concent 32g/dL (31-37) Red Cell Distribution Width 18.8% (11.5-14.5) Platelet Count 33x10^3/uL (140-400) Neutrophils (%) (Auto) 70% (31-73) Lymphocytes (%) (Auto) 15% (24-48) Monocytes (%) (Auto) 12% (0-9) Eosinophils (%) (Auto) 3% (0-3) Basophils (%) (Auto) 1% (0-3) Neutrophils # (Auto) 1.9x10^3uL (1.8-7.7) Lymphocytes # (Auto) 0.4x10^3/uL (1.0-4.8) Monocytes # (Auto) 0.3x10^3/uL (0.0-1.1) Eosinophils # (Auto) 0.1x10^3/uL (0.0-0.7) Basophils # (Auto) 0.0x10^3/uL (0.0-0.2) Sodium Level 146mmol/L (136-145) Potassium Level 3.1mmol/L (3.5-5.1) Chloride Level 110mmol/L (98-107) Carbon Dioxide Level 27mmol/L (21-32) Anion Gap 9 (6-14) Blood Urea Nitrogen 21mg/dL (8-26) Creatinine 3.5mg/dL (0.7-1.3) Estimated GFR (Cockcroft-Gault) 21.9 BUN/Creatinine Ratio 6 (6-20) Glucose Level 119mg/dL (70-99) Calcium Level 7.3mg/dL (8.5-10.1) Total Bilirubin 0.7mg/dL (0.2-1.0) Aspartate Amino Transf (AST/SGOT) 41U/L (15-37) Alanine Aminotransferase (ALT/SGPT) 29U/L (16-63) Alkaline Phosphatase 151U/L (46-116) Total Protein 5.4g/dL (6.4-8.2) Albumin 2.4g/dL (3.4-5.0) Albumin/Globulin Ratio 0.8 (1.0-1.7) Microbiology Micro Microbiology 08/28/16 Blood Culture - Preliminary, Resulted NO GROWTH AFTER 3 DAYS Physical Exam HEENT: Neck Supple W Full Motion Chest: Symmetric LUNGS: Other (faint basilar crackles) Heart: S1S2, RRR (SR no significant ectopies) Abdomen: Other (ascites) Extremities: No Calf Tenderness, Other (2+ bilateral LE pitting edema) Neurology: alert, follow commands Assessment Assessment 1. Right arm cellulitis: neg for DVT 2. Cirrhosis with ascites/hep C: post paracentesis 3. Pancytopenia 4. Anemia of chronic disease: Hgb 7.1, post transfusion 5. C-diff 6. ESRD with HD 7. Hypotension: multifactorial as noted on above conditions induing preload reduction with ascites venous compression. BP stable and better 8. Sinus tachycardia: reactive to above conditions, no significant ectopies. HR now 80-90s 9. Protein malnutrition 10. Hypothyroidism: TSH remains not therapeutic 8.2, 8.1 on 08/10/16 11. DM2 Recommendations 1. Continue regimen per ID/GI/nephrology 2. No further cardiac workup, will sign off. BOWEN BALLARD APRN Sep 01, 2016 11:27
== END 2016-09-01 11:00 | DRG 371 ==
LOC: ER 16:31 → 5 NORTH 19:31 → 1 WEST ICU 08-30 16:10
PROVIDERS: ADMIT Internal Medicine; ATTEND Internal Medicine
PROC: 0W9G30Z Drainage of Peritoneal Cavity with Drainage Device, Percutaneous Approach (ICD-10-PCS; principal; 2016-08-31)
PROC: 30233N1 Transfusion of Nonautologous Red Blood Cells into Peripheral Vein, Percutaneous Approach (ICD-10-PCS; 2016-08-31)
PROC: 5A1D00Z (ICD-10-PCS; 2016-08-31)
DX: A04.7 Enterocolitis due to Clostridium difficile (principal); N18.6 End stage renal disease; E43 Unspecified severe protein-calorie malnutrition; L03.113 Cellulitis of right upper limb; I13.0 Hypertensive heart and chronic kidney disease with heart failure and stage 1 through stage 4 chronic kidney disease, or unspecified chronic kidney disease; I50.32 Chronic diastolic (congestive) heart failure; N25.81 Secondary hyperparathyroidism of renal origin; D61.818 Other pancytopenia; I42.9 Cardiomyopathy, unspecified; I87.1 Compression of vein; K70.31 Alcoholic cirrhosis of liver with ascites; I95.9 Hypotension, unspecified; E03.9 Hypothyroidism, unspecified; E11.22 Type 2 diabetes mellitus with diabetic chronic kidney disease; F03.90 Unspecified dementia, unspecified severity, without behavioral disturbance, psychotic disturbance, mood disturbance, and anxiety; E11.21 Type 2 diabetes mellitus with diabetic nephropathy; D63.8 Anemia in other chronic diseases classified elsewhere; J44.9 Chronic obstructive pulmonary disease, unspecified; D63.1 Anemia in chronic kidney disease; K21.9 Gastro-esophageal reflux disease without esophagitis; K72.90 Hepatic failure, unspecified without coma; B19.20 Unspecified viral hepatitis C without hepatic coma; F14.10 Cocaine abuse, uncomplicated; M19.90 Unspecified osteoarthritis, unspecified site; M10.9 Gout, unspecified; Z82.49 Family history of ischemic heart disease and other diseases of the circulatory system; Z87.891 Personal history of nicotine dependence; Z99.2 Dependence on renal dialysis; Z68.20 Body mass index [BMI] 20.0-20.9, adult
CPT/HCPCS: 36415; 49083; 71010; 76705; 80048; 80053; 80202; 82947; 83605; 83735; 84443; 85027; 85610; 86850; 86900; 86901; 86920; 87040; 87324; 93005; 93971; 94250; 94640; 94760; C1729; C1769; C1892; J1815; J2543; J3370; J3480; J7030; J7040; J7060; J7620; P9016; P9046

== ENCOUNTER 2016-09-29 07:52 | Outpatient (CLI) | payer OTHER ==
[2016-09-29] VITALS (8 sets, daily range): BP systolic 113–135; BP diastolic 77–92
[~2016-09-29] VITALS: Ht 180.3 cm; Wt 65.3 kg
[2016-09-29] MEDS ORDERED: POTA10TA10 PO (08:29)
[2016-09-29] MEDS ORDERED: CEPH-264 PO (08:29)
[2016-09-29] MEDS ORDERED: SODI650T PO (08:29)
[2016-09-29] MEDS ORDERED: INSU200I SQ (08:29)
[2016-09-29] MEDS ORDERED: FAMO20TA5 PO (08:29)
[2016-09-29] MEDS ORDERED: LIDOCAINE 1% / SOD BICARB 8.4% 20 ML VIAL. IJ ONE ×2 (08:46→10:00)
[2016-09-29 08:55] LABS: BASO # 0.1 x10^3/uL (0.0-0.2); BASO % 2 % (0-3); EOS % 4 % (0-3); HEMATOCRIT 33.3 % (39.0-53.0); HEMOGLOBIN 10.4 g/dL (13.0-17.5); LYMPH # 1.2 x10^3/uL (1.0-4.8); LYMPH % 24 % (24-48); MEAN CORPUSCULAR HEMOGLOBIN 28 pg (25-35); MEAN CORPUSCULAR HGB CONC 31 g/dL (31-37); MEAN CORPUSCULAR VOLUME 90 fL (79-100); MONO % 10 % (0-9); NEUT % 60 % (31-73); PLATELET COUNT 68 x10^3/uL (140-400); RED BLOOD COUNT 3.68 x10^6/uL (4.30-5.70); RED CELL DISTRIBUTION WIDTH 18.3 % (11.5-14.5); WHITE BLOOD COUNT 5.3 x10^3/uL (4.0-11.0)
[2016-09-29 09:03] LABS: INR 1.4 (0.8-1.1); PROTHROMBIN TIME PATIENT 16.7 SEC (11.7-14.0)
[2016-09-29] MEDS ORDERED: HEPARIN for IV BOLUS 10,000 UNIT/10 ML VIAL. ONE (09:17)
[2016-09-29] MEDS ORDERED: ALBUMIN HUMAN 25% 200 ML IV ONE (09:20)
[2016-09-29] MEDS ORDERED: MIDAZOLAM HCL/PF 2 MG/2 ML VIAL. ONE (09:20)
[2016-09-29] MEDS ORDERED: FENTANYL PF 100 MCG/2 ML VIAL. ONE (09:20)
--- NOTE | 2016-09-29 09:57 | PDOC1 ---
History and Physical Date of Procedure Date of Admission 09/29/16 Procedure Procedure Sono guided Tx paracentesis Indication Indication 56 YO male with Hep C, cirrhosis, CHF, ESRD,and massive, recurrent/refractory ascites. Past Medical History Past Medical History See Nursing Pre procedure PMH Past Surgical History Past Surgical History See Nursing Pre procedure PSH Current Medications Current Medications Current Medications Lidocaine/Sodium Bicarbonate 5 ml 5 ml 1X ONCE IJ ; Start 09/29/16 at 10:00; Stop 09/29/16 at 10:01 Albumin Human 100 ml @ 100 mls/hr 1X ONCE IV ; Start 09/29/16 at 10:00; Stop at 10:59 Albumin Human (Albuminar) 100 ml @ 100 mls/hr 1X ONCE IV ; Start 09/29/16 at 10 :00; Stop 09/29/16 at 10:59 Heparin Sodium (Porcine) (Heparin Sodium) 2,600 unit 1X ONCE INT CAT ; Start at 10:00; Stop 09/29/16 at 10:01 Active Scripts Active Midodrine Hcl 2.5 Mg Tablet 2.5 Mg PO PRN TID PRN Reported Sodium Bicarbonate 650 Mg Tablet 650 Mg PO BID Potassium Chloride 10 Meq Tablet.er 10 Meq PO DAILY Keflex (Cephalexin) 500 Mg Capsule 500 Mg PO QID Humalog Kwikpen (Insulin Lispro) 200 Unit/1 Ml Insuln.pen 3 Unit SQ TIDAC Famotidine 20 Mg Tablet 20 Mg PO DAILY Oxycodone Hcl 15 Mg Tablet 1 Tab PO TID PRN Phoslo (Calcium Acetate) 667 Mg Capsule 2 Cap PO TIDWMEALS Allopurinol 100 Mg Tablet 1 Tab PO DAILY Oyster Shell Calcium-Vit D Tab (Calcium Carbonate/Vitamin D2) 1 Each Tablet 1 Each PO BID Acidophilus Lactobacillus (Lactobacillus Acidophilus) 1 Each Capsule 1 Each PO DAILY Acetaminophen 325 Mg Tablet 650 Mg PO PRN Q4HRS PRN Atorvastatin Calcium 10 Mg Tablet 1 Tab PO DAILY Folic Acid 1 Mg Tablet 1 Mg PO DAILY Levothyroxine Sodium 25 Mcg Tablet 75 Mcg PO DAILYAC Allergies Allergies: Coded Allergies: I S O L A T I O N *CONTACT* (Verified Allergy, Unknown, C-DIFF ISOLATION, 06/23/16) No Known Medication Allergies (Verified Allergy, Unknown, 06/24/16) Physical Exam Vital Signs Vital Signs Date Time Temp Pulse Resp B/P Pulse Ox O2 Delivery O2 Flow Rate FiO2 09/29/16 09:45 82 14 124/82 99 Room Air 09/29/16 08:10 98.3 98.3 Lungs: Other (Diminished basilar breath sounds) Heart: Regular rate Psych/Mental Status: Other (Encephalopathic) Other Abdomen: Marked distension c/x massive ascites Assessment Assessment 56 YO male with cirrhosis, CHF, ESRD, and massive recurrent/refractory ascites Problems: Plan Plan Sono guided Tx paracentesis KYM FUNK MD Sep 29, 2016 09:57
[2016-09-29] MEDS ORDERED: ALBUMIN HUMAN 25% 100 ML IV ONE ×2 (10:00)
--- NOTE | 2016-09-29 10:01 | PDOC ---
Exam Circuit Judge Circuit Judge Dennis Certified Coder Certified Coder B Cates Pre-Procedure Diagnosis Pre-Procedure Diagnosis 56 YO male with cirrhosis, CHF, ESRD, and massive recurrent/refractory ascites Post-Procedure Diagnosis Post-Procedure Diagnosis Same Procedure Performed Procedure Performed Sono guided Tx paracentesis Type of Anesthesia Type of Anesthesia Local Estimated Blood Loss EBL: Trace Specimens Specimans 8400 cc straw-clear ascites removed---small sample to micro Condition of Patient Condition of Patient Hemodynamically stable. No apparent complication. Infusion of 50 grams 25% albumin initiated during paracentesis procedure. Disposition Disposition Discharge from [facility] post recovery, if no problems. F/u with referring physician. Full report to follow. KYM FUNK MD Sep 29, 2016 10:01
--- NOTE | 2016-09-30 07:38 | RAD ---
Ultrasound-guided therapeutic paracentesis Indication: 56-year-old male with cirrhosis, congestive heart failure, end-stage renal disease, and massive recurrent/refractory ascites. Image guided therapeutic paracentesis has been requested. Anesthesia: Local only Procedure: Informed consent was obtained from the patient. This procedure was performed in the CT suite, with the patient on a hospital cart. Preliminary ultrasound examination confirmed the presence of a large volume of abdominal/pelvic ascites. A lateral right mid abdominal peritoneal fluid collection, suitable for sono guided paracentesis, was selected, was marked, and was documented with a single hard copy ultrasound image. That area was then prepped and draped in the usual sterile fashion. Using aseptic technique, local anesthesia, and direct ultrasound guidance, a 21-gauge micropuncture needle was successfully introduced into right lateral peritoneal fluid collection. The 21-gauge needle was exchanged over a microguidewire for a micropuncture sheath, which was, in turn, exchanged over a 0.035 inch guidewire for an 8 Telugu drainage catheter. Approximately 8400 cc of straw-clear ascites was removed, a sample of which was submitted to microbiology. The drainage catheter was then removed and a sterile dressing was applied. Patient tolerated the procedure well without apparent complication. Infusion of 50 g 25% albumin was initiated during the paracentesis procedure. Impression: Successful, uneventful ultrasound-guided therapeutic paracentesis, as described.
== END 2016-09-29 12:20 ==
LOC: INTRAD 07:52
PROVIDERS: ATTEND Internal Medicine
DX: R18.8 Other ascites (principal); B19.20 Unspecified viral hepatitis C without hepatic coma; I50.9 Heart failure, unspecified; K74.60 Unspecified cirrhosis of liver; N18.6 End stage renal disease; Z79.4 Long term (current) use of insulin
CPT/HCPCS: 36415; 49083; 85027; 85610; 87205; A4215; C1729; C1892; C1894; P9046

== ENCOUNTER 2016-10-21 11:05 | Emergency (ER) | payer OTHER ==
[~2016-10-21] VITALS: Ht 162.6 cm; Wt 72.6 kg
[~2016-10-21 11:05] MED LIST changes: +FAMO20TA5 PO; +INSU200I SQ; +POTA10TA10 PO
[2016-10-21 11:55] LABS: BASO # 0.1 x10^3/uL (0.0-0.2); BASO % 1 % (0-3); EOS % 0 % (0-3); HEMOGLOBIN 12.9 g/dL (13.0-17.5); LYMPH # 1.2 x10^3/uL (1.0-4.8); LYMPH % 16 % (24-48); MEAN CORPUSCULAR HEMOGLOBIN 29 pg (25-35); MEAN CORPUSCULAR HGB CONC 32 g/dL (31-37); MEAN CORPUSCULAR VOLUME 91 fL (79-100); MONO % 9 % (0-9); NEUT % 73 % (31-73); PLATELET COUNT 98 x10^3/uL (140-400); RED BLOOD COUNT 4.51 x10^6/uL (4.30-5.70); RED CELL DISTRIBUTION WIDTH 17.9 % (11.5-14.5); WHITE BLOOD COUNT 7.4 x10^3/uL (4.0-11.0)
[2016-10-21 12:08] LABS: CALCIUM 8.1 mg/dL (8.5-10.1); CREATININE 5.7 mg/dL (0.7-1.3); GFR 12.5; POTASSIUM 4.7 mmol/L (3.5-5.1)
--- NOTE | 2016-10-21 12:34 | PHYS DOC ---
Past Medical History Past Medical History: Anemia, Arthritis, CHF, Diabetes-Type II, GERD, High Cholesterol, Hypertension, Hypothyroid, Hepatitis, Renal Failure, Other Additional Past Medical Histor: Cirrhosis liver,gout,cardiomyopathy,hx drug & Etoh use,ASCITES,C-DIFF, HEPC Past Surgical History: Other Additional Past Surgical Histo: Rt chest dialysis shunt Alcohol Use: Sober Drug Use: Cocaine, Marijuana Adult General Chief Complaint Chief Complaint: HYPOGLYCEMIA HPI HPI 56-year-old male who presents from a assisted living facility who has history of end-stage renal disease as well as liver cirrhosis with massive ascites. He presents for an episode of hypoglycemia that he was having yesterday area per nursing staff his blood glucose was 36 yesterday. Upon arrival, the patient is alert and oriented and at his stated baseline. He does not have any specific complaints. His glucose upon arrival is 82. He does not appear to be in any acute distress whatsoever. Patient does not receive hemodialysis 3 times a week and has not obtained his appointment today. Review of Systems Review of Systems Constitutional: Denies fever or chills [] Eyes: Denies change in visual acuity, redness, or eye pain [] HENT: Denies nasal congestion or sore throat [] Respiratory: Denies cough or shortness of breath [] Cardiovascular: No additional information not addressed in HPI [] GI: Denies abdominal pain, nausea, vomiting, bloody stools or diarrhea [] : Denies dysuria or hematuria [] Musculoskeletal: Denies back pain or joint pain [] Integument: Denies rash or skin lesions [] Neurologic: Denies headache, focal weakness or sensory changes [] Endocrine: Denies polyuria or polydipsia [] Allergies Allergies Allergies Coded Allergies Type Severity Reaction Last Updated Verified I S O L A T I O N *CONTACT* Allergy Unknown C-DIFF ISOLATION 06/23/16 Yes No Known Medication Allergies Allergy Unknown 06/24/16 Yes Physical Exam Physical Exam Constitutional: Well developed, well nourished, no acute distress, non-toxic appearance. [] HENT: Normocephalic, atraumatic, bilateral external ears normal, oropharynx moist, no oral exudates, nose normal. [] Eyes: PERRLA, EOMI, conjunctiva normal, no discharge. [] Neck: Normal range of motion, no tenderness, supple, no stridor. [] Cardiovascular:Heart rate regular rhythm, no murmur [] Lungs & Thorax: Bilateral breath sounds clear to auscultation [] Abdomen: Bowel sounds normal, soft, no tenderness, no masses, no pulsatile masses, moderately distended which is a chronic finding. [] Skin: Warm, dry, no erythema, no rash. [] Back: No tenderness, no CVA tenderness. [] Extremities: No tenderness, no cyanosis, no clubbing, ROM intact, no edema. [] Neurologic: Alert and oriented X 3, normal motor function, normal sensory function, no focal deficits noted. [] Psychologic: Affect normal, judgement normal, mood normal. [] Current Patient Data Vital Signs Vital Signs Date Time Temp Pulse Resp B/P Pulse Ox O2 Delivery O2 Flow Rate FiO2 10/21/16 11:10 98.5 90 16 117/85 100 Room Air 98.5 Lab Values Laboratory Tests Test 10/21/16 11:16 10/21/16 11:40 10/21/16 12:25 Glucose (Fingerstick) 82mg/dL (70-99) 82mg/dL (70-99) White Blood Count 7.4x10^3/uL (4.0-11.0) Red Blood Count 4.51x10^6/uL (4.30-5.70) Hemoglobin 12.9g/dL (13.0-17.5) L Hematocrit 41.0% (39.0-53.0) Mean Corpuscular Volume 91fL (79-100) Mean Corpuscular Hemoglobin 29pg (25-35) Mean Corpuscular Hemoglobin Concent 32g/dL (31-37) Red Cell Distribution Width 17.9% (11.5-14.5) H Platelet Count 98x10^3/uL (140-400) L Neutrophils (%) (Auto) 73% (31-73) Lymphocytes (%) (Auto) 16% (24-48) L Monocytes (%) (Auto) 9% (0-9) Eosinophils (%) (Auto) 0% (0-3) Basophils (%) (Auto) 1% (0-3) Neutrophils # (Auto) 5.4x10^3uL (1.8-7.7) Lymphocytes # (Auto) 1.2x10^3/uL (1.0-4.8) Monocytes # (Auto) 0.7x10^3/uL (0.0-1.1) Eosinophils # (Auto) 0.0x10^3/uL (0.0-0.7) Basophils # (Auto) 0.1x10^3/uL (0.0-0.2) Sodium Level 139mmol/L (136-145) Potassium Level 4.7mmol/L (3.5-5.1) Chloride Level 102mmol/L (98-107) Carbon Dioxide Level 31mmol/L (21-32) Anion Gap 6 (6-14) Blood Urea Nitrogen 37mg/dL (8-26) H Creatinine 5.7mg/dL (0.7-1.3) H Estimated GFR (Cockcroft-Gault) 12.5 Glucose Level 90mg/dL (70-99) Calcium Level 8.1mg/dL (8.5-10.1) L Laboratory Tests 10/21/16 11:40 Laboratory Tests 10/21/16 11:40 EKG EKG [] Radiology/Procedures Radiology/Procedures [] Course & Med Decision Making Course & Med Decision Making Pertinent Labs and Imaging studies reviewed. (See chart for details) This 56-year-old male with history of end-stage renal disease and cirrhosis had a blood glucose here of 82 that was checked multiple times in remain the same. His laboratory workup was unrevealing. Patient has no specific complaints at this time. He'll be discharged to obtain his scheduled dialysis today. There is no indications time perform any other laboratory workup. He'll follow closely with his primary care doctor in the next several days with return precautions provided. Dragon Disclaimer Dragon Disclaimer This electronic medical record was generated, in whole or in part, using a voice recognition dictation system. Departure Departure Impression: Primary Impression: Hypoglycemia Disposition: 01 HOME, SELF-CARE Admitting Physician: Other Condition: STABLE Referrals: ELIZABETH COMER MD (PCP) Patient Instructions: Hypoglycemia, [id number] Additional Instructions: Please follow up with your primary doctor in the next 2-3 days for your symptoms. Continue to have your blood glucose regularly and obtain your dialysis as scheduled. Return to the ER if you develop any worsening of your symptoms. LARS LAM DO Oct 21, 2016 12:33
[2016-10-21 13:00] VITALS: BP 129/92
== END 2016-10-21 13:15 | disposition home or self-care (01) ==
LOC: ER 11:05
DX: E11.649 Type 2 diabetes mellitus with hypoglycemia without coma (principal); M19.90 Unspecified osteoarthritis, unspecified site; E78.00 Pure hypercholesterolemia, unspecified; K21.9 Gastro-esophageal reflux disease without esophagitis; E03.9 Hypothyroidism, unspecified; M10.9 Gout, unspecified; I13.2 Hypertensive heart and chronic kidney disease with heart failure and with stage 5 chronic kidney disease, or end stage renal disease; I50.9 Heart failure, unspecified; E11.22 Type 2 diabetes mellitus with diabetic chronic kidney disease; N18.6 End stage renal disease; F12.10 Cannabis abuse, uncomplicated; F14.10 Cocaine abuse, uncomplicated; Z99.2 Dependence on renal dialysis; Z91.041 Radiographic dye allergy status
CPT/HCPCS: 36415; 80048; 82947; 85027; 99284

== ENCOUNTER 2016-10-23 15:44 | Inpatient (IN) | payer OTHER ==
[~2016-10-23] VITALS: Ht 180.3 cm; Wt 77.2 kg
[~2016-10-23 15:44] MED LIST changes: +OXYC5CAP PO; -OXYC5CAP3 PO; -POTA10TA10 PO; +POTA10TA12 PO
[2016-10-23] MEDS ORDERED: IV NORMAL SALINE 500ML BAG 500 ML IV ONE ×3 (16:15→22:30)
--- NOTE | 2016-10-23 16:23 | EKG ---
[facility] [address] [place] [address] Test Date: 2016-10-23 Test Time: 15:51:12 Pat Name: MARSHA HENRY Department: Room: Gender: Seed Buyer: : 1960 Requested By: Ernesto CROWE Order Number: [id number] Reading MD: Mat Antonio Measurements Intervals [place] Rate: 141 P: 90 WI: 84 QRS: -10 QRSD: 84 T: -96 QT: 326 QTc: 502 Interpretive Statements SVT NON-SPECIFIC ST/T CHANGES Electronically Signed On 10-23-2016 18:02:30 CDT by Mat Antonio
--- NOTE | 2016-10-23 16:37 | RAD ---
Portable chest, 10/23/2016: History: Syncope Comparison is made to a study from 08/28/2016. A right jugular dialysis type catheter extends into the mid right atrium. The heart is probably within normal limits in size. The pulmonary vascularity is normal. There is tortuosity and calcific plaquing of the thoracic aorta. There are streaky basilar opacities, left greater than right, compatible with discoid atelectasis and/or scarring. The upper lung mckeon are clear. There is no evidence of pleural fluid or pneumothorax. IMPRESSION: Suboptimal inspiration with mild bibasilar discoid atelectasis and/or scarring.
[2016-10-23 17:45] LABS: BASO % 0 % (0-3); EOS % 0 % (0-3); HEMATOCRIT 42.3 % (39.0-53.0); HEMOGLOBIN 13.1 g/dL (13.0-17.5); LYMPH # 0.9 x10^3/uL (1.0-4.8); LYMPH % 12 % (24-48); MEAN CORPUSCULAR HEMOGLOBIN 28 pg (25-35); MEAN CORPUSCULAR HGB CONC 31 g/dL (31-37); MEAN CORPUSCULAR VOLUME 91 fL (79-100); MONO % 3 % (0-9); NEUT % 85 % (31-73); PLATELET COUNT 85 x10^3/uL (140-400); RED BLOOD COUNT 4.66 x10^6/uL (4.30-5.70); WHITE BLOOD COUNT 7.6 x10^3/uL (4.0-11.0)
[2016-10-23 17:51] LABS: INR 1.6 (0.8-1.1); PROTHROMBIN TIME PATIENT 18.3 SEC (11.7-14.0)
[2016-10-23 18:02] LABS: CALCIUM 7.3 mg/dL (8.5-10.1); CREATININE 6.3 mg/dL (0.7-1.3); GFR 11.1; POTASSIUM 4.9 mmol/L (3.5-5.1)
[2016-10-23 18:08] LABS: ALBUMIN 2.1 g/dL (3.4-5.0); DIRECT BILIRUBIN 0.4 mg/dL (0.0-0.2); MAGNESIUM 1.8 mg/dL (1.8-2.4); TOTAL BILIRUBIN 0.9 mg/dL (0.2-1.0); TOTAL PROTEIN 6.4 g/dL (6.4-8.2)
[2016-10-23] MEDS ORDERED: dilTIAZem IV PUSH 25 MG/5 ML VIAL IVP ONE (18:45)
--- NOTE | 2016-10-23 18:51 | PHYS DOC ---
Past Medical History Past Medical History: Anemia, Arthritis, CHF, Diabetes-Type II, GERD, High Cholesterol, Hypertension, Hypothyroid, Hepatitis, Renal Failure, Other Additional Past Medical Histor: Cirrhosis liver,gout,cardiomyopathy,hx drug & Etoh use,ASCITES,C-DIFF, HEPC Past Surgical History: Other Additional Past Surgical Histo: Rt chest dialysis shunt Alcohol Use: Sober Drug Use: Cocaine, Marijuana Adult General Chief Complaint Chief Complaint: SYNCOPE HPI HPI Patient is a 56 year old male who presents by EMS from dialysis for syncope. He told dialysis staff he had some chest discomfort, but he denies this here stating he never had chest pain. He notes feeling at baseline prior to dialysis session today. He notes chronic abdominal swelling due to ascites and denies abdominal pain. He denies dyspnea, nausea or vomiting, fever or chills, diarrhea, constipation, headache, vision changes, numbness, tingling, focal weakness, dizziness, palpitations. Review of Systems Review of Systems Constitutional: Denies fever or chills [] Eyes: Denies change in visual acuity, redness, or eye pain [] HENT: Denies nasal congestion or sore throat [] Respiratory: Denies cough or shortness of breath [] Cardiovascular: No additional information not addressed in HPI [] GI: Denies abdominal pain, nausea, vomiting, bloody stools or diarrhea [] : Denies dysuria or hematuria [] Musculoskeletal: Denies back pain or joint pain [] Integument: Denies rash or skin lesions [] Neurologic: Denies headache, focal weakness or sensory changes [] Endocrine: Denies polyuria or polydipsia [] Current Medications Current Medications Current Medications Medications (Trade) Dose Ordered Sig/Madi Start Time Stop Time Status Last Admin Dose Admin Diltiazem HCl 5 mg 5 mg 1X ONCE 10/23/16 18:45 10/23/16 18:49 DC 10/23/16 19:12 5 MG Diltiazem HCl/ Dextrose (Cardizem) 125 ml @ 0 mls/hr 1X ONCE 10/23/16 18:45 10/23/16 18:49 DC Sodium Chloride (Iv Sodium Chloride 0.9% 500ml Bag) 500 ml @ 250 mls/hr 1X ONCE 10/23/16 17:15 10/23/16 19:14 DC 10/23/16 17:15 250 MLS/HR Allergies Allergies Allergies Coded Allergies Type Severity Reaction Last Updated Verified I S O L A T I O N *CONTACT* Allergy Unknown C-DIFF ISOLATION 06/23/16 Yes No Known Medication Allergies Allergy Unknown 06/24/16 Yes Physical Exam Physical Exam Constitutional: Well developed, thin, no acute distress, non-toxic appearance. [ ] HENT: Normocephalic, atraumatic, bilateral external ears normal, oropharynx moist, nose normal. [] Eyes: PERRLA, EOMI. [] Neck: Normal range of motion, supple. [] Cardiovascular: Regular tachycardia [] Lungs & Thorax: Bilateral breath sounds clear to auscultation [] Abdomen: Bowel sounds normal, soft, no tenderness, fluid distended. [] Skin: Warm, dry, no erythema, no rash. [] Back: Normal ROM. [] Extremities: No tenderness, ROM intact, 1+ bilateral LE edema. [] Neurologic: Alert and oriented X 3, normal motor function, normal sensory function, no focal deficits noted. [] Psychologic: Affect normal, judgement normal, mood normal. [] Current Patient Data Vital Signs Vital Signs Date Time Temp Pulse Resp B/P Pulse Ox O2 Delivery O2 Flow Rate FiO2 10/23/16 18:30 150 20 121/98 94 10/23/16 17:00 Room Air 10/23/16 15:55 97.5 97.5 Lab Values Laboratory Tests Test 10/23/16 17:11 White Blood Count 7.6x10^3/uL (4.0-11.0) Red Blood Count 4.66x10^6/uL (4.30-5.70) Hemoglobin 13.1g/dL (13.0-17.5) Hematocrit 42.3% (39.0-53.0) Mean Corpuscular Volume 91fL (79-100) Mean Corpuscular Hemoglobin 28pg (25-35) Mean Corpuscular Hemoglobin Concent 31g/dL (31-37) Red Cell Distribution Width 18.0% (11.5-14.5) H Platelet Count 85x10^3/uL (140-400) L Neutrophils (%) (Auto) 85% (31-73) H Lymphocytes (%) (Auto) 12% (24-48) L Monocytes (%) (Auto) 3% (0-9) Eosinophils (%) (Auto) 0% (0-3) Basophils (%) (Auto) 0% (0-3) Neutrophils # (Auto) 6.5x10^3uL (1.8-7.7) Lymphocytes # (Auto) 0.9x10^3/uL (1.0-4.8) L Monocytes # (Auto) 0.2x10^3/uL (0.0-1.1) Eosinophils # (Auto) 0.0x10^3/uL (0.0-0.7) Basophils # (Auto) 0.0x10^3/uL (0.0-0.2) Prothrombin Time 18.3SEC (11.7-14.0) H Prothrombin Time INR 1.6 (0.8-1.1) H Sodium Level 140mmol/L (136-145) Potassium Level 4.9mmol/L (3.5-5.1) Chloride Level 102mmol/L (98-107) Carbon Dioxide Level 28mmol/L (21-32) Anion Gap 10 (6-14) Blood Urea Nitrogen 61mg/dL (8-26) H Creatinine 6.3mg/dL (0.7-1.3) H Estimated GFR (Cockcroft-Gault) 11.1 Glucose Level 85mg/dL (70-99) Lactic Acid Level 2.2mmol/L (0.4-2.0) H Calcium Level 7.3mg/dL (8.5-10.1) L Magnesium Level 1.8mg/dL (1.8-2.4) Total Bilirubin 0.9mg/dL (0.2-1.0) Direct Bilirubin 0.4mg/dL (0.0-0.2) H Aspartate Amino Transferase (AST) 69U/L (15-37) H Alanine Aminotransferase (ALT) 36U/L (16-63) Alkaline Phosphatase 170U/L (46-116) H Ammonia 43mcmol/L (11-34) H Troponin I Quantitative < 0.017ng/mL (0.000-0.055) OL-Mtv-Q-Type Natriuretic Peptide 53039xt/mL (0-124) H Total Protein 6.4g/dL (6.4-8.2) Albumin 2.1g/dL (3.4-5.0) L Laboratory Tests 10/23/16 17:11 Laboratory Tests 10/23/16 17:11 EKG EKG EKG as interpreted by me as SVT, rate 141, no ST-T changes Radiology/Procedures Radiology/Procedures Chest xray as interpreted by me with no acute cardiopulmonary disease process Course & Med Decision Making Course & Med Decision Making Pertinent Labs and Imaging studies reviewed. (See chart for details) Has mild lactic acidosis with SVT. Laboratory evaluation is otherwise largely unremarkable. He was given small amount of IVFs prior to rate control of SVT. He will be admitted for further arrhythmia management. He was given diltiazem 5mg IV push with some improvement of his HR, but his blood pressure decreased to the 80s. This improved without intervention. Discussed case with Dr. Antonio, cardiology, who recommends 0.25 of digoxin IV and agrees with not starting cardizem gtt. Discussed case with Dr. Ivan, who will admit. Dragon Disclaimer Dragon Disclaimer This electronic medical record was generated, in whole or in part, using a voice recognition dictation system. Departure Departure Impression: Primary Impression: SVT (supraventricular tachycardia) Additional Impressions: Syncope ESRD (end stage renal disease) on dialysis Ascites Disposition: ADMITTED INPATIENT Condition: GUARDED Referrals: ELIZABETH COMER MD (PCP) Problem Qualifiers Additional Impressions: Syncope Syncope type: unspecified Qualified Code: R55 - Syncope and collapse Ascites Ascites type: other type Qualified Code: R18.8 - Other ascites Ernesto CROWE MD Oct 23, 2016 18:51
--- NOTE | 2016-10-23 19:15 | ACF ---
Admission Forms Criteria SUPRAVENTRICULAR ARRHYTHMIAS Clinical Indications for Admission to Inpatient Care (Place 'X' for any and all applicable criteria): Admission is indicated by ANY ONE of the following (1)(2): [ ]I. Arrhythmia causing significant symptoms or findings as indicated by ANY ONE of the following: [ ]a) Chest pain [ ]b) Myocardial ischemia [ ]c) Altered mental status [ ]d) Dizziness, weakness, or light-headedness [ ]e) Dyspnea or hypoxemia [ ]f) Heart failure (eg, pulmonary edema)(11) [ ]II. Initiation of antiarrhythmic drug therapy is needed in patient at high risk of adverse events as indicated by ANY ONE of the following: [ ]a) Significant structural heart disease (eg, aortic stenosis, reduced ejection fraction, cardiomyopathy, congenital heart disease) [ ]b) Underlying sinus node or atrioventricular conduction disturbances [ ]c) Prolonged QT interval [ ]d) Need for treatment with antiarrhythmic that have significant proarrhythmic potential ( procainamide) [ ]e) Patient whose sinus rhythm has not been observed on ECG [X]III. Inpatient admission required rather than observation care because of ANY ONE of the following: [X]a) Syncope [ ]b) Patient has automatic implanted cardioverter-defibrillator that is repeatedly firing, malfunctioning, or in need of immediate adjustment of settings beyond scope of ambulatory or observation care. [ ]c) Hemodynamic instability that is severe or persistent [ ]d) Unstable cardiac conduction defects indicated by ANY ONE of the following(19)(20)(21): [ ]a) Type II second-degree atrioventricular block [ ]b) Third-degree atrioventricular block [ ]C) New-onset left bundle branch block with suspected myocardial ischemia [ ]e) Severe electrolyte abnormalities requiring inpatient care [ ]f) Continuous intravenous infusion of anticoagulation, platelet inhibitor, vasoactive, or antiarrhythmic medication(14) [ ]g) Pulmonary artery catheter monitoring [ ]h) Repeat cardioversion necessary [ ]i) Other condition, treatment or monitoring requiring inpatient admission [ ]IV. Underlying medical condition that necessitates inpatient care (eg, thyrotoxicosis, severe acidosis) Extended stay beyond goal length of stay may be needed for(1)(17)(18): [ ]a) Persistent hemodynamic instability or continued severe arrhythmia [ ]b) Continued monitoring during initiation of certain medications (eg, some antiarrhythmics)(17)(19) [ ]c) Precipitating cause requires ongoing inpatient care (eg, severe electrolyte abnormality, systemic infection, acidosis) [ ]d) Unstable comorbidities The original [facility] content created by [facility] has been revised. The portions of the content which have been revised are identified through the use of italic text or in bold, and [facility] has neither reviewed nor approved the modified material. All other unmodified content is copyright [facility]. Please see references footnoted in the original [facility] edition 2016 Admission Criteria Met?: Yes ARI FIGUEROA Oct 23, 2016 19:15
[2016-10-23] MEDS ORDERED: DIGOXIN IV 500 MCG/2 ML AMPUL. IV ONE (20:00)
[2016-10-23] MEDS ORDERED: ACETAMINOPHEN 325 MG TABLET. PO PRN ×2 (20:15→22:00)
[2016-10-23] MEDS ORDERED: ONDANSETRON PF 4 MG/2 ML VIAL. IV PRN ×2 (20:15→22:00)
[2016-10-23 20:30] VITALS: BP 103/75
--- NOTE | 2016-10-23 21:37 | PDOC1 ---
History and Physical Past Medical History Cardiovascular: CHF, Hyperlipidemia, Other Pulmonary: COPD CENTRAL NERVOUS SYSTEM: Dementia GI: No pertinent hx Heme/Onc: Anemia NOS Hepatobiliary: Cirrhosis, Hep A/B/C Psych: No pertinent hx Rheumatologic: Gout Infectious disease: No pertinent hx Renal/: Chronic renal failure Endocrine: No pertinent hx, Hypothyroidism, Hyperparathyroidism Past Surgical History Past Surgical History: Other Family History Family History: Hypertension Social History ALCOHOL: none Drugs: None Current Problem List Problem List Problems Medical Problems: (1) Ascites Status: Acute (2) ESRD (end stage renal disease) on dialysis Status: Acute (3) SVT (supraventricular tachycardia) Status: Acute (4) Syncope Status: Acute Current Medications Current Medications Current Medications Medications (Trade) Dose Ordered Sig/Madi Start Time Stop Time Status Last Admin Dose Admin Acetaminophen (Tylenol) 650 mg PRN Q4HRS PRN 10/23/16 20:15 10/24/16 20:14 Digoxin (Lanoxin) 250 mcg 1X ONCE 10/23/16 20:00 10/23/16 20:01 DC Diltiazem HCl 5 mg 5 mg 1X ONCE 10/23/16 18:45 10/23/16 18:49 DC 10/23/16 19:12 5 MG Diltiazem HCl/ Dextrose (Cardizem) 125 ml @ 0 mls/hr 1X ONCE 10/23/16 18:45 10/23/16 19:59 DC Ondansetron HCl (Zofran) 4 mg PRN Q8HRS PRN 10/23/16 20:15 10/24/16 20:14 Sodium Chloride (Iv Sodium Chloride 0.9% 500ml Bag) 500 ml @ 250 mls/hr 1X ONCE 10/23/16 17:15 10/23/16 19:14 DC 10/23/16 17:15 250 MLS/HR Allergies Allergies Allergies Coded Allergies Type Severity Reaction Last Updated Verified I S O L A T I O N *CONTACT* Allergy Unknown C-DIFF ISOLATION 06/23/16 Yes No Known Medication Allergies Allergy Unknown 06/24/16 Yes ROS Review of System CONSTITUTIONAL: No fever or chills EYES: No recent changes SKIN: No rash or itching CARDIOVASCULAR: tachycardia RESPIRATORY: No SOB or cough GASTROINTESTINAL: No nausea, vomiting or abdominal pain NEUROLOGICAL: No headaches or weakness ENDOCRINE: No cold or heat intolerance GENITOURINARY: No urgency or frequency of urination MUSCULOSKELETAL: No back pain or joint pain LYMPHATICS: No enlarged lymph nodes PSYCHIATRIC: No anxiety or depression Physical Exam Physical Exam GEN.: No apparent distress. Alert and oriented, malnourished. HEENT: Head is normocephalic, atraumatic NECK: Supple. NO jvd LUNGS: Clear to auscultation. HEART: Tachycardia,S1, S2 present. Peripheral pulses intact ABDOMEN: Soft, nontender. Positive bowel sounds. distended. EXTREMITIES: Without any cyanosis. mild edema NEUROLOGIC: Normal speech, normal tone PSYCHIATRIC: Normal affect, normal mood. SKIN: dry Vitals Vitals Vital Signs Date Time Temp Pulse Resp B/P Pulse Ox O2 Delivery O2 Flow Rate FiO2 10/23/16 19:45 144 16 85/59 94 Room Air 10/23/16 15:55 97.5 97.5 Labs Labs Laboratory Tests Test 10/23/16 17:11 White Blood Count 7.6x10^3/uL (4.0-11.0) Red Blood Count 4.66x10^6/uL (4.30-5.70) Hemoglobin 13.1g/dL (13.0-17.5) Hematocrit 42.3% (39.0-53.0) Mean Corpuscular Volume 91fL (79-100) Mean Corpuscular Hemoglobin 28pg (25-35) Mean Corpuscular Hemoglobin Concent 31g/dL (31-37) Red Cell Distribution Width 18.0% (11.5-14.5) Platelet Count 85x10^3/uL (140-400) Neutrophils (%) (Auto) 85% (31-73) Lymphocytes (%) (Auto) 12% (24-48) Monocytes (%) (Auto) 3% (0-9) Eosinophils (%) (Auto) 0% (0-3) Basophils (%) (Auto) 0% (0-3) Neutrophils # (Auto) 6.5x10^3uL (1.8-7.7) Lymphocytes # (Auto) 0.9x10^3/uL (1.0-4.8) Monocytes # (Auto) 0.2x10^3/uL (0.0-1.1) Eosinophils # (Auto) 0.0x10^3/uL (0.0-0.7) Basophils # (Auto) 0.0x10^3/uL (0.0-0.2) Prothrombin Time 18.3SEC (11.7-14.0) Prothromb Time International Ratio 1.6 (0.8-1.1) Sodium Level 140mmol/L (136-145) Potassium Level 4.9mmol/L (3.5-5.1) Chloride Level 102mmol/L (98-107) Carbon Dioxide Level 28mmol/L (21-32) Anion Gap 10 (6-14) Blood Urea Nitrogen 61mg/dL (8-26) Creatinine 6.3mg/dL (0.7-1.3) Estimated GFR (Cockcroft-Gault) 11.1 Glucose Level 85mg/dL (70-99) Lactic Acid Level 2.2mmol/L (0.4-2.0) Calcium Level 7.3mg/dL (8.5-10.1) Magnesium Level 1.8mg/dL (1.8-2.4) Total Bilirubin 0.9mg/dL (0.2-1.0) Direct Bilirubin 0.4mg/dL (0.0-0.2) Aspartate Amino Transf (AST/SGOT) 69U/L (15-37) Alanine Aminotransferase (ALT/SGPT) 36U/L (16-63) Alkaline Phosphatase 170U/L (46-116) Ammonia 43mcmol/L (11-34) Troponin I Quantitative < 0.017ng/mL (0.000-0.055) VL-Kxi-W-Type Natriuretic Peptide 96969ff/mL (0-124) Total Protein 6.4g/dL (6.4-8.2) Albumin 2.1g/dL (3.4-5.0) Laboratory Tests Test 10/23/16 17:11 White Blood Count 7.6x10^3/uL (4.0-11.0) Red Blood Count 4.66x10^6/uL (4.30-5.70) Hemoglobin 13.1g/dL (13.0-17.5) Hematocrit 42.3% (39.0-53.0) Mean Corpuscular Volume 91fL (79-100) Mean Corpuscular Hemoglobin 28pg (25-35) Mean Corpuscular Hemoglobin Concent 31g/dL (31-37) Red Cell Distribution Width 18.0% (11.5-14.5) Platelet Count 85x10^3/uL (140-400) Neutrophils (%) (Auto) 85% (31-73) Lymphocytes (%) (Auto) 12% (24-48) Monocytes (%) (Auto) 3% (0-9) Eosinophils (%) (Auto) 0% (0-3) Basophils (%) (Auto) 0% (0-3) Neutrophils # (Auto) 6.5x10^3uL (1.8-7.7) Lymphocytes # (Auto) 0.9x10^3/uL (1.0-4.8) Monocytes # (Auto) 0.2x10^3/uL (0.0-1.1) Eosinophils # (Auto) 0.0x10^3/uL (0.0-0.7) Basophils # (Auto) 0.0x10^3/uL (0.0-0.2) Prothrombin Time 18.3SEC (11.7-14.0) Prothromb Time International Ratio 1.6 (0.8-1.1) Sodium Level 140mmol/L (136-145) Potassium Level 4.9mmol/L (3.5-5.1) Chloride Level 102mmol/L (98-107) Carbon Dioxide Level 28mmol/L (21-32) Anion Gap 10 (6-14) Blood Urea Nitrogen 61mg/dL (8-26) Creatinine 6.3mg/dL (0.7-1.3) Estimated GFR (Cockcroft-Gault) 11.1 Glucose Level 85mg/dL (70-99) Lactic Acid Level 2.2mmol/L (0.4-2.0) Calcium Level 7.3mg/dL (8.5-10.1) Magnesium Level 1.8mg/dL (1.8-2.4) Total Bilirubin 0.9mg/dL (0.2-1.0) Direct Bilirubin 0.4mg/dL (0.0-0.2) Aspartate Amino Transf (AST/SGOT) 69U/L (15-37) Alanine Aminotransferase (ALT/SGPT) 36U/L (16-63) Alkaline Phosphatase 170U/L (46-116) Ammonia 43mcmol/L (11-34) Troponin I Quantitative < 0.017ng/mL (0.000-0.055) OT-Fti-E-Type Natriuretic Peptide 77237ob/mL (0-124) Total Protein 6.4g/dL (6.4-8.2) Albumin 2.1g/dL (3.4-5.0) VTE Prophylaxis Ordered VTE Prophylaxis Devices: No VTE Pharmacological Prophylaxi: Yes ANISA SCHMITT MD Oct 23, 2016 21:37
[2016-10-23] MEDS ORDERED: ALBUTEROL SULFATE 2.5 MG/3 ML NEBU. NEB PRN (22:00)
[2016-10-23] MEDS ORDERED: HYDROcodone/APAP 5/325MG 1 TAB TABLET PO PRN (22:00)
[2016-10-23] MEDS ORDERED: hydrALAZINE 20 MG/ML VIAL. IVP PRN (22:00)
[2016-10-23 23:42] VITALS: BP 107/81
[2016-10-24] MEDS ORDERED: PNEUMOCOCCAL VAX SCREEN BY RX. MC PRN (00:15)
--- NOTE | 2016-10-24 00:35 | HP ---
ADMIT DATE: 10/23/2016 CHIEF COMPLAINT: Syncope, tachycardia. HISTORY OF PRESENT ILLNESS: A 56-year-old male patient brought from the dialysis center for questionable syncope. As per the report, at the dialysis center, the patient had some chest discomfort; however, the patient denies. On examination, he was noted to have severe tachycardia with hypotension. The patient is running low blood pressures for a long time; however, he never had symptoms in the past. He denies any symptoms such as nausea, vomiting, chest pain, shortness of breath or palpitations. However, his heart rate is running around 150s. PAST MEDICAL HISTORY: Anemia of chronic disease, chronic diastolic heart failure, type 2 diabetes mellitus, GERD, hyperlipidemia, hypertension, hypothyroidism, hepatitis ____ renal failure, end-stage renal disease, cirrhosis end stage, gout, cardiomyopathy, ascites, C. diff. PAST SURGICAL HISTORY: Right chest dialysis shunt. PERSONAL HISTORY: No smoking, no alcohol, no drug abuse. REVIEW OF SYSTEMS AND PHYSICAL EXAMINATION: Please see my electronic H and P. LABORATORY FINDINGS: WBC is 7.6, hemoglobin is 13.1, hematocrit 42.3, platelets 85. Creatinine is 6.3, BUN 63, glucose 85, sodium 140, potassium 4.9, chloride is 102, carbon dioxide 28. EKG, not able to personally review. As per the ER, no ST-T wave changes, SVT present. Chest x-ray, no acute cardiopulmonary process seen. Lactic acid 2.2, ammonia is 43. Troponin is less than 0.017. ProBNP 26,286. ASSESSMENT AND PLAN: 1. Supraventricular tachycardia, present on admission. 2. Hypotension. 3. Thrombocytopenia. 4. End-stage renal disease, on hemodialysis. 5. End-stage liver disease. 6. History of chronic diastolic heart failure, stable. 7. Moderate to severe protein malnutrition. 8. Diabetes mellitus. 9. Hypertension, currently hypotensive, with tachycardia. 10. Hyperlipidemia. PLAN: 1. The patient received digoxin in the ER and he was not able to receive Cardizem due to his hypotension. Cardiology has been consulted. We will continue to monitor his heart rate. He has been admitted to the cardiac floor and placed on telemetry. 2. Nephrology has been consulted for hemodialysis. 3. Home medications, we will resume all his home medications. RN to verify home medications. 4. Paracentesis if the patient stays more than 3 days in the hospital. 5. No DVT prophylaxis due to thrombocytopenia. 6. His overall prognosis is guarded. The patient was admitted to the hospital several times, we asked him to speak with palliative care. Most of the times, he declined any palliative options. We will continue aggressive care at this time. ANISA SCHMITT MD DR: EASTON/melissa JOB#: [id number] / [id number] TARYN
[2016-10-24] MEDS ORDERED: MIDO5TAB PO (00:46)
[2016-10-24] MEDS ORDERED: DIPH25CA58 PO (00:55)
[2016-10-24] MEDS ORDERED: FERR-26 PO (00:56)
[2016-10-24] MEDS ORDERED: FENT1PAT91 TD (00:56)
[2016-10-24] MEDS ORDERED: GLUC1KIT IM (00:57)
[2016-10-24 00:59] LABS: ALBUMIN 1.7 g/dL (3.4-5.0); ALBUMIN/GLOBULIN RATIO 0.4 (1.0-1.7); CALCIUM 7.4 mg/dL (8.5-10.1); CREATININE 6.5 mg/dL (0.7-1.3); GFR 10.7; TOTAL BILIRUBIN 0.9 mg/dL (0.2-1.0); TOTAL PROTEIN 5.6 g/dL (6.4-8.2)
[2016-10-24] MEDS ORDERED: DEXT37.56 PO (00:59)
[2016-10-24] MEDS ORDERED: DEXTROSE 50% 25 GM / 50ML DISP.SYRIN. IV ONE (01:05)
[2016-10-24] MEDS: DEXTROSE 50% 25 GM / 50ML DISP.SYRIN. IV PRN ×5 (01:15→18:18)
[2016-10-24 03:45] VITALS: BP 110/85
[2016-10-24 06:06] LABS: HEMATOCRIT 42.4 % (39.0-53.0); HEMOGLOBIN 13.2 g/dL (13.0-17.5); MEAN CORPUSCULAR HEMOGLOBIN 29 pg (25-35); MEAN CORPUSCULAR HGB CONC 31 g/dL (31-37); MEAN CORPUSCULAR VOLUME 92 fL (79-100); RED BLOOD COUNT 4.61 x10^6/uL (4.30-5.70); RED CELL DISTRIBUTION WIDTH 18.4 % (11.5-14.5); WHITE BLOOD COUNT 6.9 x10^3/uL (4.0-11.0)
[2016-10-24 06:07] LABS: BASO % 0 % (0-3); EOS % 0 % (0-3); LYMPH # 0.2 x10^3/uL (1.0-4.8); LYMPH % 3 % (24-48); MONO % 9 % (0-9); NEUT % 87 % (31-73); PLATELET COUNT 70 x10^3/uL (140-400)
[2016-10-24 06:48] LABS: CALCIUM 7.6 mg/dL (8.5-10.1); CREATININE 6.3 mg/dL (0.7-1.3); GFR 11.1; POTASSIUM 5.3 mmol/L (3.5-5.1)
[2016-10-24 07:48] VITALS: BP 109/83
--- NOTE | 2016-10-24 09:07 | PDOC2 ---
CARDIOLOGY CONSULT NOTE CHEIF COMPLAINT: Passing out Problems: HPI: History is limited due to patient ability but it appears that patient was transferred from HD center with possible CP and syncope. He currently denies any chest pain. In ER was noted to have had SVT with HR > 140 consistent with atrial flutter. Given diltiazem, dropped BP. Resolved after IV digoxin. Given IVF 1.5L. No chest pain at this time. Overall, poor historian. PMHX: Hep C ESRD Diastolic HF - possible SOCHX: Lives in a long-term. FAMHX: NC CURRENT MEDS: Current Medications Medications (Trade) Dose Ordered Sig/Madi Start Time Stop Time Status Last Admin Dose Admin Acetaminophen (Tylenol) 325 mg PRN Q6HRS PRN 10/23/16 22:00 Acetaminophen/ Hydrocodone Bitart (Lortab 5/325) 1 tab PRN Q6HRS PRN 10/23/16 22:00 Albuterol Sulfate 2.5 mg 2.5 mg PRN Q4HRS PRN 10/23/16 22:00 Dextrose (Dextrose 50%-Water Syringe) 25 gm STK-MED ONCE 10/24/16 01:05 10/24/16 01:06 DC Digoxin (Lanoxin) 250 mcg 1X ONCE 10/23/16 20:00 10/23/16 20:01 DC 10/23/16 22:36 250 MCG Diltiazem HCl 5 mg 5 mg 1X ONCE 10/23/16 18:45 10/23/16 18:49 DC 10/23/16 19:12 5 MG Diltiazem HCl/ Dextrose (Cardizem) 125 ml @ 0 mls/hr 1X ONCE 10/23/16 18:45 10/23/16 19:59 DC Hydralazine HCl (Apresoline) 10 mg PRN Q4HRS PRN 10/23/16 22:00 Ondansetron HCl (Zofran) 4 mg PRN Q8HRS PRN 10/23/16 22:00 Pneumococcal Polyvalent Vaccine (Do NOT chart on this placeholder) 1 each PRN DAILY PRN 10/24/16 00:15 Cancel Sodium Chloride (Iv Sodium Chloride 0.9% 500ml Bag) 500 ml @ 500 mls/hr 1X ONCE 10/23/16 22:30 4/28/17 23:29 DC 10/23/16 22:34 500 MLS/HR ALLERGIES: Allergies Coded Allergies Type Severity Reaction Last Updated Verified I S O L A T I O N *CONTACT* Allergy Unknown C-DIFF ISOLATION 06/23/16 Yes No Known Medication Allergies Allergy Unknown 06/24/16 Yes ROS: Unable to obtain due to patient status. PHYSICAL EXAM: Vital Signs: Vital Signs Date Time Temp Pulse Resp B/P Pulse Ox O2 Delivery O2 Flow Rate FiO2 10/24/16 08:33 98 Room Air 10/24/16 07:48 99.1 77 16 109/83 99.1 I & O Intake and Output 10/24/16 07:00 Intake Total 500 ml Output Total 0 ml Balance 500 ml Intake Oral 0 ml IV Total 500 ml Output Urine Total 0 ml # Bowel Movements 1 Physical Exam: Emaciated patient. Poor overall health Poor dentitition EOMI. NC/AT RRR, soft systolic murmur poor lung sounds bilaterally obese nt abd 2+ le edema a/o to place and self. Unable to provide much history DIAGNOSTIC TESTING: Tele - NSR Lab Hgb 13.2, from 8.1 in 09/01/2016 - possible from hemoconcentration? ASSESSMENT: 1. SVT - likely atrial flutter 2. Known orthostatic hypotension on midodrine 3. Possible dehydration 4. Possible sepsis with low blood sugar, mental status changes PLAN: 1. SVT now resolved s/p digoxin 2. Will start low dose Metoprolol 25mg bid 3. No anticoagulation for now, consider if recurrent 4. Supportive care. No further CV testing. Pls call with questions or if there is recurrence. Ok to dc from CV perspective. Thanks. JA VALDIVIA MD Oct 24, 2016 09:07
[2016-10-24 10:17] LABS: PLT ESTIMATE DECREASED (ADEQUATE); POIKILOCYTOSIS PRESENT; TARGET CELLS PRESENT
[2016-10-24] MEDS ORDERED: PIP/TAZO PER PHARMACY MC PRN (10:45)
[2016-10-24] MEDS ORDERED: MIDODRINE 2.5 MG TABLET PO PRN (10:45)
[2016-10-24] MEDS ORDERED: ACETAMINOPHEN 325 MG TABLET. PO PRN (10:45)
[2016-10-24] MEDS ORDERED: diphenhydrAMINE HCL 25 MG CAPSULE PO PRN (10:45)
[2016-10-24] MEDS ORDERED: ATORVASTATIN CALCIUM 10 MG TABLET. PO SCH (11:00)
[2016-10-24] MEDS ORDERED: GLUCAGON,HUMAN RECOMBINANT 1 MG/ML VIAL. IM PRN (11:00)
[2016-10-24] MEDS ORDERED: VANCOMYCIN 1.5 GM in IV NORMAL SALINE 500ML BAG 500 ML IV ONE (11:15)
[2016-10-24] MEDS ORDERED: INSULIN ASPART 300 UNITS/3 ML INSULN.PEN SQ SCH (11:30)
[2016-10-24] MEDS: INSULIN ASPART 300 UNITS/3 ML INSULN.PEN SQ SCH ×2 (11:35→16:30)
[2016-10-24 11:36] VITALS: BP 103/73
[2016-10-24] MEDS ORDERED: NON FORMULARY ITEM (Cephalexin (Keflex) 500 MG) PO SCH (13:00)
[2016-10-24] MEDS: POTASSIUM CHLORIDE 10 MEQ TABLET.ER. PO SCH (13:51)
[2016-10-24] MEDS: METOPROLOL TART IMMED RELEASE 25 MG TABLET. PO SCH ×2 (13:51→21:00)
[2016-10-24] MEDS: ALLOPURINOL 100 MG TABLET. PO SCH (13:51)
[2016-10-24] MEDS: MIDODRINE 5 MG TABLET PO SCH (13:52)
[2016-10-24] MEDS: SODIUM BICARBONATE 650 MG TABLET. PO SCH ×2 (13:52→22:18)
[2016-10-24] MEDS: FOLIC ACID 1 MG TABLET. PO SCH (13:52)
[2016-10-24] MEDS: LACTOBACILLUS ACIDOPH & BULGAR 1 TABLET. PO SCH (13:52)
[2016-10-24] MEDS: VANCOMYCIN 125 MG/2.5 ML ORAL SOLUTION. PO SCH ×3 (13:53→23:50)
[2016-10-24] MEDS: FAMOTIDINE 20 MG TABLET. PO SCH (13:53)
[2016-10-24] MEDS: fentaNYL 50MCG/HR PATCH 1 PATCH PATCH.TD72 TD SCH (13:54)
[2016-10-24] MEDS: PIPERACILLIN/TAZOBACTAM 2.25 GM in IV NORMAL SALINE 50ML 50 ML IV SCH ×3 (13:54→23:51)
[2016-10-24] MEDS: FERROUS SULFATE 325 MG TABLET. PO SCH (13:55)
[2016-10-24] MEDS: CALCIUM ACETATE 667 MG CAPSULE PO SCH ×2 (13:59→17:00)
[2016-10-24] MEDS: CALCIUM CARB/VIT D3 500/200 TABLET. PO SCH ×2 (13:59→22:18)
--- NOTE | 2016-10-24 14:03 | PDOC ---
Infectious Disease Note Vital Sign Vital Signs Vital Signs Date Time Temp Pulse Resp B/P Pulse Ox O2 Delivery O2 Flow Rate FiO2 10/24/16 11:36 99.1 77 20 103/73 98 Room Air 99.1 Labs Lab Laboratory Tests Test 10/23/16 17:11 10/23/16 21:15 10/24/16 00:10 10/24/16 01:37 White Blood Count 7.6x10^3/uL (4.0-11.0) Red Blood Count 4.66x10^6/uL (4.30-5.70) Hemoglobin 13.1g/dL (13.0-17.5) Hematocrit 42.3% (39.0-53.0) Mean Corpuscular Volume 91fL (79-100) Mean Corpuscular Hemoglobin 28pg (25-35) Mean Corpuscular Hemoglobin Concent 31g/dL (31-37) Red Cell Distribution Width 18.0% (11.5-14.5) Platelet Count 85x10^3/uL (140-400) Neutrophils (%) (Auto) 85% (31-73) Lymphocytes (%) (Auto) 12% (24-48) Monocytes (%) (Auto) 3% (0-9) Eosinophils (%) (Auto) 0% (0-3) Basophils (%) (Auto) 0% (0-3) Neutrophils # (Auto) 6.5x10^3uL (1.8-7.7) Lymphocytes # (Auto) 0.9x10^3/uL (1.0-4.8) Monocytes # (Auto) 0.2x10^3/uL (0.0-1.1) Eosinophils # (Auto) 0.0x10^3/uL (0.0-0.7) Basophils # (Auto) 0.0x10^3/uL (0.0-0.2) Prothrombin Time 18.3SEC (11.7-14.0) Prothromb Time International Ratio 1.6 (0.8-1.1) Sodium Level 140mmol/L (136-145) 140mmol/L (136-145) Potassium Level 4.9mmol/L (3.5-5.1) 5.0mmol/L (3.5-5.1) Chloride Level 102mmol/L (98-107) 105mmol/L (98-107) Carbon Dioxide Level 28mmol/L (21-32) 23mmol/L (21-32) Anion Gap 10 (6-14) 12 (6-14) Blood Urea Nitrogen 61mg/dL (8-26) 66mg/dL (8-26) Creatinine 6.3mg/dL (0.7-1.3) 6.5mg/dL (0.7-1.3) Estimated GFR (Cockcroft-Gault) 11.1 10.7 Glucose Level 85mg/dL (70-99) 33mg/dL (70-99) Lactic Acid Level 2.2mmol/L (0.4-2.0) 3.7mmol/L (0.4-2.0) Calcium Level 7.3mg/dL (8.5-10.1) 7.4mg/dL (8.5-10.1) Magnesium Level 1.8mg/dL (1.8-2.4) Total Bilirubin 0.9mg/dL (0.2-1.0) 0.9mg/dL (0.2-1.0) Direct Bilirubin 0.4mg/dL (0.0-0.2) Aspartate Amino Transf (AST/SGOT) 69U/L (15-37) 50U/L (15-37) Alanine Aminotransferase (ALT/SGPT) 36U/L (16-63) 28U/L (16-63) Alkaline Phosphatase 170U/L (46-116) 143U/L (46-116) Ammonia 43mcmol/L (11-34) Troponin I Quantitative < 0.017ng/mL (0.000-0.055) FX-Emw-C-Type Natriuretic Peptide 80970nq/mL (0-124) Total Protein 6.4g/dL (6.4-8.2) 5.6g/dL (6.4-8.2) Albumin 2.1g/dL (3.4-5.0) 1.7g/dL (3.4-5.0) BUN/Creatinine Ratio 10 (6-20) Albumin/Globulin Ratio 0.4 (1.0-1.7) Glucose (Fingerstick) 117mg/dL (70-99) Test 10/24/16 05:00 10/24/16 07:32 10/24/16 11:37 10/24/16 11:58 White Blood Count 6.9x10^3/uL (4.0-11.0) Red Blood Count 4.61x10^6/uL (4.30-5.70) Hemoglobin 13.2g/dL (13.0-17.5) Hematocrit 42.4% (39.0-53.0) Mean Corpuscular Volume 92fL (79-100) Mean Corpuscular Hemoglobin 29pg (25-35) Mean Corpuscular Hemoglobin Concent 31g/dL (31-37) Red Cell Distribution Width 18.4% (11.5-14.5) Platelet Count 70x10^3/uL (140-400) Neutrophils (%) (Auto) 87% (31-73) Lymphocytes (%) (Auto) 3% (24-48) Monocytes (%) (Auto) 9% (0-9) Eosinophils (%) (Auto) 0% (0-3) Basophils (%) (Auto) 0% (0-3) Neutrophils # (Auto) 6.0x10^3uL (1.8-7.7) Lymphocytes # (Auto) 0.2x10^3/uL (1.0-4.8) Monocytes # (Auto) 0.6x10^3/uL (0.0-1.1) Eosinophils # (Auto) 0.0x10^3/uL (0.0-0.7) Basophils # (Auto) 0.0x10^3/uL (0.0-0.2) Segmented Neutrophils % 73% (35-66) Band Neutrophils % 20% (0-9) Lymphocytes % 5% (24-48) Monocytes % 2% (0-10) Platelet Estimate Decreased (ADEQUATE) Poikilocytosis Present Target Cells Present Sodium Level 140mmol/L (136-145) Potassium Level 5.3mmol/L (3.5-5.1) Chloride Level 104mmol/L (98-107) Carbon Dioxide Level 23mmol/L (21-32) Anion Gap 13 (6-14) Blood Urea Nitrogen 66mg/dL (8-26) Creatinine 6.3mg/dL (0.7-1.3) Estimated GFR (Cockcroft-Gault) 11.1 Glucose Level 4mg/dL (70-99) Calcium Level 7.6mg/dL (8.5-10.1) Glucose (Fingerstick) 115mg/dL (70-99) 48mg/dL (70-99) 178mg/dL (70-99) Objective Assessment Gram variable rods sepsis POA Bandemia H/o recent c. diff CKD on HD Cirrhosis of liver w/ refractory ascites DM with hypoglycemia Debility SVT Plan Plan of Care Zosyn Po vancomycin BID for prophylaxis Await ID gram variable rods Monitor labs Supportive care Thank you [id number] Attending Co-Sign The patient was seen and interviewed as well as examined at the bedside. The chart was reviewed. The case was discussed. Agree with the plan of care. ADITYA NORTON APRN Oct 24, 2016 14:03 CARMINE CLIFTON MD Oct 24, 2016 14:10
--- NOTE | 2016-10-24 14:49 | PDOC ---
PROGRESS NOTES Chief Complaint Chief Complaint cc: ? syncopal episode, SVT, ESRD, chronic hypotension ESRD, on HD anemia of chronic disease chronic diastolic heart failure DM type II GERD hyperlipidemia hypertension, hypothyroidism hepatitis cirrhosis with chronic ascites gout cardiomyopathy prior C. diff. History of Present Illness History of Present Illness Patient seen and evaluated at bedside. Patient appears emaciated and responds to voice; appears to be in no apparent distress. Unable appreciate if patient has any chest pain or other symptoms. Per nursing, patient's cultures are growing gram variable bacteria. Vitals Vitals Vital Signs Date Time Temp Pulse Resp B/P Pulse Ox O2 Delivery O2 Flow Rate FiO2 10/24/16 13:54 18 Room Air 10/24/16 13:52 77 103/73 10/24/16 11:36 99.1 98 99.1 Physical Exam General: Alert, Cooperative, No acute distress, Other (emiaciated. temporal wasting ) Heart: Normal S1, Other (tachycardia, on midorinine gtt. ) Lungs: Clear, Other (diminished inspiratory effort. negative chest retractions and/or accessory muscle use. ) Abdomen: Soft, No tenderness, Other (chronic ascites. negative peritoneal signs. ) Extremities: No cyanosis, Other (+2 pitting edema bilaterally. peripheral pulses 2/4 bilaterally. ) Skin: Other (Left ankle ulcer. Right shoulder ulcer. dressing placed. ) Labs LABS Laboratory Tests Test 10/23/16 17:11 10/23/16 21:15 10/24/16 00:10 10/24/16 01:37 White Blood Count 7.6x10^3/uL (4.0-11.0) Red Blood Count 4.66x10^6/uL (4.30-5.70) Hemoglobin 13.1g/dL (13.0-17.5) Hematocrit 42.3% (39.0-53.0) Mean Corpuscular Volume 91fL (79-100) Mean Corpuscular Hemoglobin 28pg (25-35) Mean Corpuscular Hemoglobin Concent 31g/dL (31-37) Red Cell Distribution Width 18.0% (11.5-14.5) Platelet Count 85x10^3/uL (140-400) Neutrophils (%) (Auto) 85% (31-73) Lymphocytes (%) (Auto) 12% (24-48) Monocytes (%) (Auto) 3% (0-9) Eosinophils (%) (Auto) 0% (0-3) Basophils (%) (Auto) 0% (0-3) Neutrophils # (Auto) 6.5x10^3uL (1.8-7.7) Lymphocytes # (Auto) 0.9x10^3/uL (1.0-4.8) Monocytes # (Auto) 0.2x10^3/uL (0.0-1.1) Eosinophils # (Auto) 0.0x10^3/uL (0.0-0.7) Basophils # (Auto) 0.0x10^3/uL (0.0-0.2) Prothrombin Time 18.3SEC (11.7-14.0) Prothromb Time International Ratio 1.6 (0.8-1.1) Sodium Level 140mmol/L (136-145) 140mmol/L (136-145) Potassium Level 4.9mmol/L (3.5-5.1) 5.0mmol/L (3.5-5.1) Chloride Level 102mmol/L (98-107) 105mmol/L (98-107) Carbon Dioxide Level 28mmol/L (21-32) 23mmol/L (21-32) Anion Gap 10 (6-14) 12 (6-14) Blood Urea Nitrogen 61mg/dL (8-26) 66mg/dL (8-26) Creatinine 6.3mg/dL (0.7-1.3) 6.5mg/dL (0.7-1.3) Estimated GFR (Cockcroft-Gault) 11.1 10.7 Glucose Level 85mg/dL (70-99) 33mg/dL (70-99) Lactic Acid Level 2.2mmol/L (0.4-2.0) 3.7mmol/L (0.4-2.0) Calcium Level 7.3mg/dL (8.5-10.1) 7.4mg/dL (8.5-10.1) Magnesium Level 1.8mg/dL (1.8-2.4) Total Bilirubin 0.9mg/dL (0.2-1.0) 0.9mg/dL (0.2-1.0) Direct Bilirubin 0.4mg/dL (0.0-0.2) Aspartate Amino Transf (AST/SGOT) 69U/L (15-37) 50U/L (15-37) Alanine Aminotransferase (ALT/SGPT) 36U/L (16-63) 28U/L (16-63) Alkaline Phosphatase 170U/L (46-116) 143U/L (46-116) Ammonia 43mcmol/L (11-34) Troponin I Quantitative < 0.017ng/mL (0.000-0.055) AY-Bkr-Z-Type Natriuretic Peptide 80843cf/mL (0-124) Total Protein 6.4g/dL (6.4-8.2) 5.6g/dL (6.4-8.2) Albumin 2.1g/dL (3.4-5.0) 1.7g/dL (3.4-5.0) BUN/Creatinine Ratio 10 (6-20) Albumin/Globulin Ratio 0.4 (1.0-1.7) Glucose (Fingerstick) 117mg/dL (70-99) Test 10/24/16 05:00 10/24/16 07:32 10/24/16 11:37 10/24/16 11:58 White Blood Count 6.9x10^3/uL (4.0-11.0) Red Blood Count 4.61x10^6/uL (4.30-5.70) Hemoglobin 13.2g/dL (13.0-17.5) Hematocrit 42.4% (39.0-53.0) Mean Corpuscular Volume 92fL (79-100) Mean Corpuscular Hemoglobin 29pg (25-35) Mean Corpuscular Hemoglobin Concent 31g/dL (31-37) Red Cell Distribution Width 18.4% (11.5-14.5) Platelet Count 70x10^3/uL (140-400) Neutrophils (%) (Auto) 87% (31-73) Lymphocytes (%) (Auto) 3% (24-48) Monocytes (%) (Auto) 9% (0-9) Eosinophils (%) (Auto) 0% (0-3) Basophils (%) (Auto) 0% (0-3) Neutrophils # (Auto) 6.0x10^3uL (1.8-7.7) Lymphocytes # (Auto) 0.2x10^3/uL (1.0-4.8) Monocytes # (Auto) 0.6x10^3/uL (0.0-1.1) Eosinophils # (Auto) 0.0x10^3/uL (0.0-0.7) Basophils # (Auto) 0.0x10^3/uL (0.0-0.2) Segmented Neutrophils % 73% (35-66) Band Neutrophils % 20% (0-9) Lymphocytes % 5% (24-48) Monocytes % 2% (0-10) Platelet Estimate Decreased (ADEQUATE) Poikilocytosis Present Target Cells Present Sodium Level 140mmol/L (136-145) Potassium Level 5.3mmol/L (3.5-5.1) Chloride Level 104mmol/L (98-107) Carbon Dioxide Level 23mmol/L (21-32) Anion Gap 13 (6-14) Blood Urea Nitrogen 66mg/dL (8-26) Creatinine 6.3mg/dL (0.7-1.3) Estimated GFR (Cockcroft-Gault) 11.1 Glucose Level 4mg/dL (70-99) Calcium Level 7.6mg/dL (8.5-10.1) Glucose (Fingerstick) 115mg/dL (70-99) 48mg/dL (70-99) 178mg/dL (70-99) Review of Systems Review of Systems Unable to obtain full ROS as patient is a poor historian. Denies chest pain or abdominal pain. Assessment and Plan Assessmemt and Plan Problems Medical Problems: (1) Ascites Status: Acute (2) ESRD (end stage renal disease) on dialysis Status: Acute (3) SVT (supraventricular tachycardia) Status: Acute (4) Syncope Status: Acute ASSESSMENT AND PLAN: 1. Supraventricular tachycardia, POA. coverted with digoxin. currently on metropolol for rate control per cardiology 2. chronic Hypotension. currently on midodrine gtt 3. gram variable bactremia 4. Thrombocytopenia. 5. End-stage renal disease, on hemodialysis. 6. End-stage liver disease. ? hepatic encephalopathy 7. chronic diastolic heart failure, stable. 8. Moderate to severe protein malnutrition. 9. Diabetes mellitus. 10. Hyperlipidemia. 11. hx of prior c.diff infection PLAN: 1. continue with telemetry monitoring. 2. Nephrology management for hemodialysis 3. resume Home medications 4. consider Paracentesis if the patient stays more than 3 days in the hospital. 5. order 5000U heparin sq for DVT ppx. 6. monitor AM labs. ordered ammonia level 7. continue SSI with glucose checks AC 8. PT/OT 9. refused paliative care options. May consult to address goals of snf care. 10. referral to social science instructor for SNU evaluation. 11. ID consult ordered for gram variable bactremia. continue zosyn and start PO vancomycin ppx, per ID 12. f/u on cultures. Problems: Comment Review of Relevant I have reviewed the following items дмитрий (where applicable) has been applied. Labs Laboratory Tests Test 10/23/16 17:11 10/23/16 21:15 10/24/16 00:10 10/24/16 01:37 White Blood Count 7.6x10^3/uL (4.0-11.0) Red Blood Count 4.66x10^6/uL (4.30-5.70) Hemoglobin 13.1g/dL (13.0-17.5) Hematocrit 42.3% (39.0-53.0) Mean Corpuscular Volume 91fL (79-100) Mean Corpuscular Hemoglobin 28pg (25-35) Mean Corpuscular Hemoglobin Concent 31g/dL (31-37) Red Cell Distribution Width 18.0% (11.5-14.5) Platelet Count 85x10^3/uL (140-400) Neutrophils (%) (Auto) 85% (31-73) Lymphocytes (%) (Auto) 12% (24-48) Monocytes (%) (Auto) 3% (0-9) Eosinophils (%) (Auto) 0% (0-3) Basophils (%) (Auto) 0% (0-3) Neutrophils # (Auto) 6.5x10^3uL (1.8-7.7) Lymphocytes # (Auto) 0.9x10^3/uL (1.0-4.8) Monocytes # (Auto) 0.2x10^3/uL (0.0-1.1) Eosinophils # (Auto) 0.0x10^3/uL (0.0-0.7) Basophils # (Auto) 0.0x10^3/uL (0.0-0.2) Prothrombin Time 18.3SEC (11.7-14.0) Prothromb Time International Ratio 1.6 (0.8-1.1) Sodium Level 140mmol/L (136-145) 140mmol/L (136-145) Potassium Level 4.9mmol/L (3.5-5.1) 5.0mmol/L (3.5-5.1) Chloride Level 102mmol/L (98-107) 105mmol/L (98-107) Carbon Dioxide Level 28mmol/L (21-32) 23mmol/L (21-32) Anion Gap 10 (6-14) 12 (6-14) Blood Urea Nitrogen 61mg/dL (8-26) 66mg/dL (8-26) Creatinine 6.3mg/dL (0.7-1.3) 6.5mg/dL (0.7-1.3) Estimated GFR (Cockcroft-Gault) 11.1 10.7 Glucose Level 85mg/dL (70-99) 33mg/dL (70-99) Lactic Acid Level 2.2mmol/L (0.4-2.0) 3.7mmol/L (0.4-2.0) Calcium Level 7.3mg/dL (8.5-10.1) 7.4mg/dL (8.5-10.1) Magnesium Level 1.8mg/dL (1.8-2.4) Total Bilirubin 0.9mg/dL (0.2-1.0) 0.9mg/dL (0.2-1.0) Direct Bilirubin 0.4mg/dL (0.0-0.2) Aspartate Amino Transf (AST/SGOT) 69U/L (15-37) 50U/L (15-37) Alanine Aminotransferase (ALT/SGPT) 36U/L (16-63) 28U/L (16-63) Alkaline Phosphatase 170U/L (46-116) 143U/L (46-116) Ammonia 43mcmol/L (11-34) Troponin I Quantitative < 0.017ng/mL (0.000-0.055) TD-Mtd-M-Type Natriuretic Peptide 44081wu/mL (0-124) Total Protein 6.4g/dL (6.4-8.2) 5.6g/dL (6.4-8.2) Albumin 2.1g/dL (3.4-5.0) 1.7g/dL (3.4-5.0) BUN/Creatinine Ratio 10 (6-20) Albumin/Globulin Ratio 0.4 (1.0-1.7) Glucose (Fingerstick) 117mg/dL (70-99) Test 10/24/16 05:00 10/24/16 07:32 10/24/16 11:37 10/24/16 11:58 White Blood Count 6.9x10^3/uL (4.0-11.0) Red Blood Count 4.61x10^6/uL (4.30-5.70) Hemoglobin 13.2g/dL (13.0-17.5) Hematocrit 42.4% (39.0-53.0) Mean Corpuscular Volume 92fL (79-100) Mean Corpuscular Hemoglobin 29pg (25-35) Mean Corpuscular Hemoglobin Concent 31g/dL (31-37) Red Cell Distribution Width 18.4% (11.5-14.5) Platelet Count 70x10^3/uL (140-400) Neutrophils (%) (Auto) 87% (31-73) Lymphocytes (%) (Auto) 3% (24-48) Monocytes (%) (Auto) 9% (0-9) Eosinophils (%) (Auto) 0% (0-3) Basophils (%) (Auto) 0% (0-3) Neutrophils # (Auto) 6.0x10^3uL (1.8-7.7) Lymphocytes # (Auto) 0.2x10^3/uL (1.0-4.8) Monocytes # (Auto) 0.6x10^3/uL (0.0-1.1) Eosinophils # (Auto) 0.0x10^3/uL (0.0-0.7) Basophils # (Auto) 0.0x10^3/uL (0.0-0.2) Segmented Neutrophils % 73% (35-66) Band Neutrophils % 20% (0-9) Lymphocytes % 5% (24-48) Monocytes % 2% (0-10) Platelet Estimate Decreased (ADEQUATE) Poikilocytosis Present Target Cells Present Sodium Level 140mmol/L (136-145) Potassium Level 5.3mmol/L (3.5-5.1) Chloride Level 104mmol/L (98-107) Carbon Dioxide Level 23mmol/L (21-32) Anion Gap 13 (6-14) Blood Urea Nitrogen 66mg/dL (8-26) Creatinine 6.3mg/dL (0.7-1.3) Estimated GFR (Cockcroft-Gault) 11.1 Glucose Level 4mg/dL (70-99) Calcium Level 7.6mg/dL (8.5-10.1) Glucose (Fingerstick) 115mg/dL (70-99) 48mg/dL (70-99) 178mg/dL (70-99) Laboratory Tests Test 10/23/16 17:11 10/23/16 21:15 10/24/16 00:10 10/24/16 01:37 White Blood Count 7.6x10^3/uL (4.0-11.0) Red Blood Count 4.66x10^6/uL (4.30-5.70) Hemoglobin 13.1g/dL (13.0-17.5) Hematocrit 42.3% (39.0-53.0) Mean Corpuscular Volume 91fL (79-100) Mean Corpuscular Hemoglobin 28pg (25-35) Mean Corpuscular Hemoglobin Concent 31g/dL (31-37) Red Cell Distribution Width 18.0% (11.5-14.5) Platelet Count 85x10^3/uL (140-400) Neutrophils (%) (Auto) 85% (31-73) Lymphocytes (%) (Auto) 12% (24-48) Monocytes (%) (Auto) 3% (0-9) Eosinophils (%) (Auto) 0% (0-3) Basophils (%) (Auto) 0% (0-3) Neutrophils # (Auto) 6.5x10^3uL (1.8-7.7) Lymphocytes # (Auto) 0.9x10^3/uL (1.0-4.8) Monocytes # (Auto) 0.2x10^3/uL (0.0-1.1) Eosinophils # (Auto) 0.0x10^3/uL (0.0-0.7) Basophils # (Auto) 0.0x10^3/uL (0.0-0.2) Prothrombin Time 18.3SEC (11.7-14.0) Prothromb Time International Ratio 1.6 (0.8-1.1) Sodium Level 140mmol/L (136-145) 140mmol/L (136-145) Potassium Level 4.9mmol/L (3.5-5.1) 5.0mmol/L (3.5-5.1) Chloride Level 102mmol/L (98-107) 105mmol/L (98-107) Carbon Dioxide Level 28mmol/L (21-32) 23mmol/L (21-32) Anion Gap 10 (6-14) 12 (6-14) Blood Urea Nitrogen 61mg/dL (8-26) 66mg/dL (8-26) Creatinine 6.3mg/dL (0.7-1.3) 6.5mg/dL (0.7-1.3) Estimated GFR (Cockcroft-Gault) 11.1 10.7 Glucose Level 85mg/dL (70-99) 33mg/dL (70-99) Lactic Acid Level 2.2mmol/L (0.4-2.0) 3.7mmol/L (0.4-2.0) Calcium Level 7.3mg/dL (8.5-10.1) 7.4mg/dL (8.5-10.1) Magnesium Level 1.8mg/dL (1.8-2.4) Total Bilirubin 0.9mg/dL (0.2-1.0) 0.9mg/dL (0.2-1.0) Direct Bilirubin 0.4mg/dL (0.0-0.2) Aspartate Amino Transf (AST/SGOT) 69U/L (15-37) 50U/L (15-37) Alanine Aminotransferase (ALT/SGPT) 36U/L (16-63) 28U/L (16-63) Alkaline Phosphatase 170U/L (46-116) 143U/L (46-116) Ammonia 43mcmol/L (11-34) Troponin I Quantitative < 0.017ng/mL (0.000-0.055) XH-Ptw-R-Type Natriuretic Peptide 47883jk/mL (0-124) Total Protein 6.4g/dL (6.4-8.2) 5.6g/dL (6.4-8.2) Albumin 2.1g/dL (3.4-5.0) 1.7g/dL (3.4-5.0) BUN/Creatinine Ratio 10 (6-20) Albumin/Globulin Ratio 0.4 (1.0-1.7) Glucose (Fingerstick) 117mg/dL (70-99) Test 10/24/16 05:00 10/24/16 07:32 10/24/16 11:37 10/24/16 11:58 White Blood Count 6.9x10^3/uL (4.0-11.0) Red Blood Count 4.61x10^6/uL (4.30-5.70) Hemoglobin 13.2g/dL (13.0-17.5) Hematocrit 42.4% (39.0-53.0) Mean Corpuscular Volume 92fL (79-100) Mean Corpuscular Hemoglobin 29pg (25-35) Mean Corpuscular Hemoglobin Concent 31g/dL (31-37) Red Cell Distribution Width 18.4% (11.5-14.5) Platelet Count 70x10^3/uL (140-400) Neutrophils (%) (Auto) 87% (31-73) Lymphocytes (%) (Auto) 3% (24-48) Monocytes (%) (Auto) 9% (0-9) Eosinophils (%) (Auto) 0% (0-3) Basophils (%) (Auto) 0% (0-3) Neutrophils # (Auto) 6.0x10^3uL (1.8-7.7) Lymphocytes # (Auto) 0.2x10^3/uL (1.0-4.8) Monocytes # (Auto) 0.6x10^3/uL (0.0-1.1) Eosinophils # (Auto) 0.0x10^3/uL (0.0-0.7) Basophils # (Auto) 0.0x10^3/uL (0.0-0.2) Segmented Neutrophils % 73% (35-66) Band Neutrophils % 20% (0-9) Lymphocytes % 5% (24-48) Monocytes % 2% (0-10) Platelet Estimate Decreased (ADEQUATE) Poikilocytosis Present Target Cells Present Sodium Level 140mmol/L (136-145) Potassium Level 5.3mmol/L (3.5-5.1) Chloride Level 104mmol/L (98-107) Carbon Dioxide Level 23mmol/L (21-32) Anion Gap 13 (6-14) Blood Urea Nitrogen 66mg/dL (8-26) Creatinine 6.3mg/dL (0.7-1.3) Estimated GFR (Cockcroft-Gault) 11.1 Glucose Level 4mg/dL (70-99) Calcium Level 7.6mg/dL (8.5-10.1) Glucose (Fingerstick) 115mg/dL (70-99) 48mg/dL (70-99) 178mg/dL (70-99) Microbiology 10/23/16 Blood Culture - Final, Complete Medications Current Medications Sodium Chloride 500 ml @ 250 mls/hr 1X ONCE IV Last administered on 16:24; Start 10/23/16 at 16:15; Stop 10/23/16 at 18:14; Status DC Sodium Chloride (Iv Sodium Chloride 0.9% 500ml Bag) 500 ml @ 250 mls/hr 1X ONCE IV Last administered on 10/23/16 17:15; Start 10/23/16 at 17:15; Stop at 19:14; Status DC Diltiazem HCl 5 mg 5 mg 1X ONCE IVP Last administered on 10/23/16 19:12; Start 10/23/16 at 18:45; Stop 10/23/16 at 18:49; Status DC Diltiazem HCl/ Dextrose (Cardizem) 125 ml @ 0 mls/hr 1X ONCE IV ; Start at 18:45; Stop 10/23/16 at 19:59; Status DC Digoxin (Lanoxin) 250 mcg 1X ONCE IV Last administered on 10/23/16 22:36; Start 10/23/16 at 20:00; Stop 10/23/16 at 20:01; Status DC Ondansetron HCl (Zofran) 4 mg PRN Q8HRS PRN IV NAUSEA/VOMITING; Start 10/23/16 at 20:15; Stop 10/23/16 at 22:04; Status DC Acetaminophen (Tylenol) 650 mg PRN Q4HRS PRN PO FEVER; Start 10/23/16 at 20:15 ; Stop 10/23/16 at 22:04; Status DC Acetaminophen (Tylenol) 325 mg PRN Q6HRS PRN PO MILD PAIN / TEMP; Start at 22:00 Acetaminophen/ Hydrocodone Bitart (Lortab 5/325) 1 tab PRN Q6HRS PRN PO MODERATE TO SEVERE PAIN; Start 10/23/16 at 22:00 Hydralazine HCl (Apresoline) 10 mg PRN Q4HRS PRN IVP ELEVATED BP, SEE COMMENTS ; Start 10/23/16 at 22:00 Ondansetron HCl (Zofran) 4 mg PRN Q8HRS PRN IV NAUSEA/VOMITING; Start 10/23/16 at 22:00 Albuterol Sulfate 2.5 mg 2.5 mg PRN Q4HRS PRN NEB SHORTNESS OF BREATH; Start at 22:00 Sodium Chloride (Iv Sodium Chloride 0.9% 500ml Bag) 500 ml @ 500 mls/hr 1X ONCE IV Last administered on 10/23/16 22:34; Start 10/23/16 at 22:30; Stop at 23:29; Status DC Pneumococcal Polyvalent Vaccine (Do NOT chart on this placeholder) 1 each PRN DAILY PRN [facility] UNABLE TO RESPOND; Start 10/24/16 at 00:15; Status Cancel Dextrose (Dextrose 50%-Water Syringe) 12.5 gm PRN Q15MIN PRN IV SEE COMMENTS Last administered on 10/24/16 11:40; Start 10/24/16 at 01:15 Dextrose (Dextrose 50%-Water Syringe) 25 gm STK-MED ONCE IV ; Start 10/24/16 at 01:05; Stop 10/24/16 at 01:06; Status DC Metoprolol Tartrate (Lopressor) 12.5 mg BID PO Last administered on 10/24/16 13:51; Start 10/24/16 at 09:30 Acetaminophen (Tylenol) 650 mg PRN Q4HRS PRN PO PAIN; Start 10/24/16 at 10:45 Allopurinol (Zyloprim) 100 mg DAILY PO Last administered on 10/24/16 13:51; Start 10/24/16 at 11:00 Atorvastatin Calcium (Lipitor) 10 mg DAILY PO Last administered on 10/24/16 13 :52; Start 10/24/16 at 11:00 Calcium Acetate (Phoslo) 1,334 mg TIDWMEALS PO Last administered on 10/24/16 13:59; Start 10/24/16 at 12:00 Diphenhydramine HCl (Benadryl) 25 mg PRN Q4HRS PRN PO ITCHING; Start 10/24/16 at 10:45 Famotidine (Pepcid) 20 mg DAILY PO Last administered on 10/24/16 13:53; Start 10/24/16 at 11:00 Fentanyl (Duragesic 50mcg/ Hr Patch) 1 patch Q72H TD Last administered on 13:54; Start 10/24/16 at 11:00 Ferrous Sulfate (Feosol) 325 mg DAILY PO Last administered on 10/24/16 13:55; Start 10/24/16 at 11:00 Folic Acid (Folic Acid) 1 mg DAILY PO Last administered on 10/24/16 13:52; Start 10/24/16 at 11:00 Levothyroxine Sodium (Synthroid) 75 mcg DAILYAC PO ; Start 10/25/16 at 07:30 Midodrine (Proamatine) 2.5 mg PRN TID PRN PO BLOOD PRESSURE; Start 10/24/16 at 10:45 Midodrine (Proamatine) 5 mg [id number] PO Last administered on 10/24/16 13:52; Start 10/24/16 at 14:00 Sodium Bicarbonate (Sodium Bicarbonate) 650 mg BID PO Last administered on 10/24 13:52; Start 10/24/16 at 11:00 Calcium/Vitamin D (Oscal D 500mg/ 200uts) 1 tab TID PO ; Start 10/24/16 at 14:00 Non-Formulary Medication 500 mg QID PO ; Start 10/24/16 at 13:00; Stop 10/24/16 at 13:00; Status DC Glucagon (Glucagen) 1 mg 1X PRN IM HYPOGLYCEMIA; Start 10/24/16 at 11:00 Insulin Aspart (Novolog) 3 units TIDAC SQ ; Start 10/24/16 at 11:30; Stop at 11:36; Status DC Lactobacillus Acidophilus (Bacid, Lou-Bid) 2 tab DAILY PO Last administered on 10/24/16 13:52; Start 10/24/16 at 11:00 Oxycodone HCl (Roxicodone) 5 mg PRN Q4HRS PRN PO PAIN; Start 10/24/16 at 11:15 Potassium Chloride (Klor-Con) 10 meq [id number] PO Last administered on 13:51; Start 10/24/16 at 11:00 Vancomycin HCl 125 mg Q6HRS PO Last administered on 10/24/16 13:53; Start at 12:00 Piperacillin Sod/ Tazobactam Sod 1 each 1 each PRN DAILY PRN [facility] SEE COMMENTS; Start 10/24/16 at 10:45 Vancomycin HCl 1.5 gm/Sodium Chloride 500 ml @ 250 mls/hr 1X ONCE IV ; Start 10/24/16 at 11:15; Stop 10/24/16 at 11:15; Status DC Piperacillin Sod/ Tazobactam Sod/ Sodium Chloride (Zosyn/Iv Sodium Chloride 0.9 % 50ml) 50 ml @ 100 mls/hr Q6HRS IV Last administered on 10/24/16 13:54; Start 10/24/16 at 12:00 Insulin Aspart (Novolog) 3 units TIDAC SQ ; Start 10/24/16 at 11:35 Active Scripts Active Midodrine Hcl 2.5 Mg Tablet 2.5 Mg PO PRN TID PRN Reported Gluco Burst (Dextrose) 37.5 Gm Gel..gram. 37.5 Gm PO PRN Glucagon Emergency Kit (Glucagon,Human Recombinant) 1 Mg Kit 1 Mg IM PRN Ferrous Sulfate 325 Mg Tablet 1 Tab PO DAILY DURAGESIC 50mcg/hr (Fentanyl) 1 Each Patch.td72 1 Patch TD Q72H Benadryl (Diphenhydramine Hcl) 25 Mg Capsule 25 Mg PO PRN Q4HRS PRN Midodrine Hcl 5 Mg Tablet 5 Mg PO BID Sodium Bicarbonate 650 Mg Tablet 650 Mg PO BID Potassium Chloride 10 Meq Tablet.er 10 Meq PO DAILY Keflex (Cephalexin) 500 Mg Capsule 500 Mg PO QID Humalog Kwikpen (Insulin Lispro) 200 Unit/1 Ml Insuln.pen 3 Unit SQ TIDAC Famotidine 20 Mg Tablet 20 Mg PO DAILY Oxycodone Hcl 15 Mg Tablet 1 Tab PO PRN Q4HRS PRN Phoslo (Calcium Acetate) 667 Mg Capsule 2 Cap PO TIDWMEALS Allopurinol 100 Mg Tablet 1 Tab PO DAILY Oyster Shell Calcium-Vit D Tab (Calcium Carbonate/Vitamin D2) 1 Each Tablet 1 Each PO TID Acidophilus Lactobacillus (Lactobacillus Acidophilus) 1 Each Capsule 1 Each PO DAILY Acetaminophen 325 Mg Tablet 650 Mg PO PRN Q4HRS PRN Atorvastatin Calcium 10 Mg Tablet 1 Tab PO DAILY Folic Acid 1 Mg Tablet 1 Mg PO DAILY Levothyroxine Sodium 25 Mcg Tablet 75 Mcg PO DAILYAC Vitals/I & O Vital Sign - Last 24 Hours 10/23/16 10/23/16 10/23/16 10/23/16 15:55 16:30 17:00 17:30 Temp 97.5 97.5 Pulse 145 144 146 150 Resp 17 20 15 18 B/P 115/73 118/97 127/91 132/94 Pulse Ox 97 95 98 97 O2 Delivery Room Air Room Air Room Air 10/23/16 10/23/16 10/23/16 10/23/16 18:00 18:30 19:00 19:12 Pulse 150 150 148 150 Resp 26 20 20 B/P 106/79 121/98 112/87 107/92 Pulse Ox 94 94 94 O2 Delivery Room Air 10/23/16 10/23/16 10/23/16 10/23/16 19:30 19:45 20:30 20:35 Temp 97.5 97.5 Pulse 140 144 140 Resp 16 16 20 B/P 81/59 85/59 103/75 Pulse Ox 94 94 95 O2 Delivery Room Air Room Air Room Air Room Air 10/23/16 10/23/16 10/24/16 10/24/16 22:36 23:42 03:45 07:48 Temp 97.1 97.1 99.1 97.1 97.1 99.1 Pulse 135 136 112 77 Resp 22 22 16 B/P 107/81 107/81 110/85 109/83 Pulse Ox 95 97 90 O2 Delivery Room Air Room Air Room Air 10/24/16 10/24/16 10/24/16 10/24/16 08:09 08:33 11:36 13:51 Temp 99.1 99.1 Pulse 77 77 Resp 20 B/P 103/73 103/73 Pulse Ox 98 98 O2 Delivery Room Air Room Air Room Air 10/24/16 10/24/16 13:52 13:54 Pulse 77 Resp 18 B/P 103/73 O2 Delivery Room Air Intake and Output 10/23/16 10/23/16 10/24/16 15:00 23:00 07:00 Intake Total 500 ml 0 ml Output Total 0 ml Balance 500 ml 0 ml LINDA ABRAHAM III DO Oct 24, 2016 14:49
[2016-10-24 15:00] VITALS: BP 101/78
[2016-10-24] MEDS ORDERED: DEXTROSE ORAL GEL 15 GM TUBE. ONE (17:44)
--- NOTE | 2016-10-24 17:46 | PDOC2 ---
CONSULT Date of Consult Date of Consult DATE: 10/24/16 TIME: 17:39 Reason for Consult Reason for Consult: ESRD History of Present Illness Reason for Visit: 56 yr old AA gentleman. ESRD/HTN failure to thrive. CHF. Poor eating. Low BP off and on,. Admitted with weakness, hypoglycemia, failure to thrive. No CP Past Medical History Past Medical History HTN CHF ESRD ANEMIA MALNUTRITION FAILURE TO THRIVE HYPOTENSION EDEMA Cardiovascular: CHF, Hyperlipidemia, Other Pulmonary: COPD CENTRAL NERVOUS SYSTEM: Dementia GI: No pertinent hx, GI bleed Heme/Onc: Anemia NOS Hepatobiliary: Cirrhosis, Hep A/B/C Psych: No pertinent hx, Anxiety, Depression Musculoskeletal: Other Rheumatologic: Gout Infectious disease: No pertinent hx Renal/: Chronic renal failure Endocrine: No pertinent hx, Hypothyroidism, Hyperparathyroidism Past Surgical History Past Surgical History HD shunt Past Surgical History: Other Family History Family History No known renal issues. Family History: Hypertension Social History ALCOHOL: none Drugs: None Lives: Long-Term Current Problem List Problem List Problems Medical Problems: (1) Ascites Status: Acute (2) ESRD (end stage renal disease) on dialysis Status: Acute (3) SVT (supraventricular tachycardia) Status: Acute (4) Syncope Status: Acute Current Medications Current Medications Current Medications Sodium Chloride 500 ml @ 250 mls/hr 1X ONCE IV Last administered on 16:24; Start 10/23/16 at 16:15; Stop 10/23/16 at 18:14; Status DC Sodium Chloride (Iv Sodium Chloride 0.9% 500ml Bag) 500 ml @ 250 mls/hr 1X ONCE IV Last administered on 10/23/16 17:15; Start 10/23/16 at 17:15; Stop at 19:14; Status DC Diltiazem HCl 5 mg 5 mg 1X ONCE IVP Last administered on 10/23/16 19:12; Start 10/23/16 at 18:45; Stop 10/23/16 at 18:49; Status DC Diltiazem HCl/ Dextrose (Cardizem) 125 ml @ 0 mls/hr 1X ONCE IV ; Start at 18:45; Stop 10/23/16 at 19:59; Status DC Digoxin (Lanoxin) 250 mcg 1X ONCE IV Last administered on 10/23/16 22:36; Start 10/23/16 at 20:00; Stop 10/23/16 at 20:01; Status DC Ondansetron HCl (Zofran) 4 mg PRN Q8HRS PRN IV NAUSEA/VOMITING; Start 10/23/16 at 20:15; Stop 10/23/16 at 22:04; Status DC Acetaminophen (Tylenol) 650 mg PRN Q4HRS PRN PO FEVER; Start 10/23/16 at 20:15 ; Stop 10/23/16 at 22:04; Status DC Acetaminophen (Tylenol) 325 mg PRN Q6HRS PRN PO MILD PAIN / TEMP; Start at 22:00 Acetaminophen/ Hydrocodone Bitart (Lortab 5/325) 1 tab PRN Q6HRS PRN PO MODERATE TO SEVERE PAIN; Start 10/23/16 at 22:00 Hydralazine HCl (Apresoline) 10 mg PRN Q4HRS PRN IVP ELEVATED BP, SEE COMMENTS ; Start 10/23/16 at 22:00 Ondansetron HCl (Zofran) 4 mg PRN Q8HRS PRN IV NAUSEA/VOMITING; Start 10/23/16 at 22:00 Albuterol Sulfate 2.5 mg 2.5 mg PRN Q4HRS PRN NEB SHORTNESS OF BREATH; Start at 22:00 Sodium Chloride (Iv Sodium Chloride 0.9% 500ml Bag) 500 ml @ 500 mls/hr 1X ONCE IV Last administered on 10/23/16 22:34; Start 10/23/16 at 22:30; Stop at 23:29; Status DC Pneumococcal Polyvalent Vaccine (Do NOT chart on this placeholder) 1 each PRN DAILY PRN [facility] UNABLE TO RESPOND; Start 10/24/16 at 00:15; Status Cancel Dextrose (Dextrose 50%-Water Syringe) 12.5 gm PRN Q15MIN PRN IV SEE COMMENTS Last administered on 10/24/16 11:40; Start 10/24/16 at 01:15 Dextrose (Dextrose 50%-Water Syringe) 25 gm STK-MED ONCE IV ; Start 10/24/16 at 01:05; Stop 10/24/16 at 01:06; Status DC Metoprolol Tartrate (Lopressor) 12.5 mg BID PO Last administered on 10/24/16 13:51; Start 10/24/16 at 09:30 Acetaminophen (Tylenol) 650 mg PRN Q4HRS PRN PO PAIN; Start 10/24/16 at 10:45 Allopurinol (Zyloprim) 100 mg DAILY PO Last administered on 10/24/16 13:51; Start 10/24/16 at 11:00 Atorvastatin Calcium (Lipitor) 10 mg DAILY PO Last administered on 10/24/16 13 :52; Start 10/24/16 at 11:00 Calcium Acetate (Phoslo) 1,334 mg TIDWMEALS PO Last administered on 10/24/16 13:59; Start 10/24/16 at 12:00 Diphenhydramine HCl (Benadryl) 25 mg PRN Q4HRS PRN PO ITCHING; Start 10/24/16 at 10:45 Famotidine (Pepcid) 20 mg DAILY PO Last administered on 10/24/16 13:53; Start 10/24/16 at 11:00 Fentanyl (Duragesic 50mcg/ Hr Patch) 1 patch Q72H TD Last administered on 13:54; Start 10/24/16 at 11:00 Ferrous Sulfate (Feosol) 325 mg DAILY PO Last administered on 10/24/16 13:55; Start 10/24/16 at 11:00 Folic Acid (Folic Acid) 1 mg DAILY PO Last administered on 10/24/16 13:52; Start 10/24/16 at 11:00 Levothyroxine Sodium (Synthroid) 75 mcg DAILYAC PO ; Start 10/25/16 at 07:30 Midodrine (Proamatine) 2.5 mg PRN TID PRN PO BLOOD PRESSURE; Start 10/24/16 at 10:45 Midodrine (Proamatine) 5 mg [id number] PO Last administered on 10/24/16 13:52; Start 10/24/16 at 14:00 Sodium Bicarbonate (Sodium Bicarbonate) 650 mg BID PO Last administered on 10/24 13:52; Start 10/24/16 at 11:00 Calcium/Vitamin D (Oscal D 500mg/ 200uts) 1 tab TID PO ; Start 10/24/16 at 14:00 Non-Formulary Medication 500 mg QID PO ; Start 10/24/16 at 13:00; Stop 10/24/16 at 13:00; Status DC Glucagon (Glucagen) 1 mg 1X PRN IM HYPOGLYCEMIA; Start 10/24/16 at 11:00 Insulin Aspart (Novolog) 3 units TIDAC SQ ; Start 10/24/16 at 11:30; Stop at 11:36; Status DC Lactobacillus Acidophilus (Bacid, Lou-Bid) 2 tab DAILY PO Last administered on 10/24/16 13:52; Start 10/24/16 at 11:00 Oxycodone HCl (Roxicodone) 5 mg PRN Q4HRS PRN PO PAIN; Start 10/24/16 at 11:15 Potassium Chloride (Klor-Con) 10 meq [id number] PO Last administered on 13:51; Start 10/24/16 at 11:00 Vancomycin HCl 125 mg Q6HRS PO Last administered on 10/24/16 17:08; Start at 12:00 Piperacillin Sod/ Tazobactam Sod 1 each 1 each PRN DAILY PRN MC SEE COMMENTS; Start 10/24/16 at 10:45 Vancomycin HCl 1.5 gm/Sodium Chloride 500 ml @ 250 mls/hr 1X ONCE IV ; Start 10/24/16 at 11:15; Stop 10/24/16 at 11:15; Status DC Piperacillin Sod/ Tazobactam Sod/ Sodium Chloride (Zosyn/Iv Sodium Chloride 0.9 % 50ml) 50 ml @ 100 mls/hr Q6HRS IV Last administered on 10/24/16 17:09; Start 10/24/16 at 12:00 Insulin Aspart (Novolog) 3 units TIDAC SQ ; Start 10/24/16 at 11:35 Heparin Sodium (Porcine) 5000 unit 5,000 unit Q8HRS SQ ; Start 10/24/16 at 22:00 Amino Acids/ Glycerin/ Electrolytes (Procalamine) 1,000 ml @ 40 mls/hr Q24H IV ; Start 10/24/16 at 17:15 Dextrose (Dextrose 50%-Water Syringe) 25 gm PRN Q1HR PRN IV SEE COMMENTS; Start 10/24/16 at 17:15 Active Scripts Active Midodrine Hcl 2.5 Mg Tablet 2.5 Mg PO PRN TID PRN Reported Gluco Burst (Dextrose) 37.5 Gm Gel..gram. 37.5 Gm PO PRN Glucagon Emergency Kit (Glucagon,Human Recombinant) 1 Mg Kit 1 Mg IM PRN Ferrous Sulfate 325 Mg Tablet 1 Tab PO DAILY DURAGESIC 50mcg/hr (Fentanyl) 1 Each Patch.td72 1 Patch TD Q72H Benadryl (Diphenhydramine Hcl) 25 Mg Capsule 25 Mg PO PRN Q4HRS PRN Midodrine Hcl 5 Mg Tablet 5 Mg PO BID Sodium Bicarbonate 650 Mg Tablet 650 Mg PO BID Potassium Chloride 10 Meq Tablet.er 10 Meq PO DAILY Keflex (Cephalexin) 500 Mg Capsule 500 Mg PO QID Humalog Kwikpen (Insulin Lispro) 200 Unit/1 Ml Insuln.pen 3 Unit SQ TIDAC Famotidine 20 Mg Tablet 20 Mg PO DAILY Oxycodone Hcl 15 Mg Tablet 1 Tab PO PRN Q4HRS PRN Phoslo (Calcium Acetate) 667 Mg Capsule 2 Cap PO TIDWMEALS Allopurinol 100 Mg Tablet 1 Tab PO DAILY Oyster Shell Calcium-Vit D Tab (Calcium Carbonate/Vitamin D2) 1 Each Tablet 1 Each PO TID Acidophilus Lactobacillus (Lactobacillus Acidophilus) 1 Each Capsule 1 Each PO DAILY Acetaminophen 325 Mg Tablet 650 Mg PO PRN Q4HRS PRN Atorvastatin Calcium 10 Mg Tablet 1 Tab PO DAILY Folic Acid 1 Mg Tablet 1 Mg PO DAILY Levothyroxine Sodium 25 Mcg Tablet 75 Mcg PO DAILYAC Allergies Allergies: Coded Allergies: I S O L A T I O N *CONTACT* (Verified Allergy, Unknown, C-DIFF ISOLATION, 06/23/16) No Known Medication Allergies (Verified Allergy, Unknown, 06/24/16) Physical Exam Physical Exam RENAL F/U : HAIDERI VSS Afebrile. Neck : Supple Lungs : Non labored. Few rhonchi. CVS : RRR Abd : Benign appearing. No major distention. Ext: No edema. Neuro : Somnolent. Moves all 4 extremities. Vitals VITALS Vital Signs Date Time Temp Pulse Resp B/P Pulse Ox O2 Delivery O2 Flow Rate FiO2 10/24/16 15:00 97.5 91 20 101/78 99 Room Air 97.5 Labs Labs Laboratory Tests Test 10/23/16 17:11 10/23/16 21:15 10/24/16 00:10 10/24/16 01:37 White Blood Count 7.6x10^3/uL (4.0-11.0) Red Blood Count 4.66x10^6/uL (4.30-5.70) Hemoglobin 13.1g/dL (13.0-17.5) Hematocrit 42.3% (39.0-53.0) Mean Corpuscular Volume 91fL (79-100) Mean Corpuscular Hemoglobin 28pg (25-35) Mean Corpuscular Hemoglobin Concent 31g/dL (31-37) Red Cell Distribution Width 18.0% (11.5-14.5) Platelet Count 85x10^3/uL (140-400) Neutrophils (%) (Auto) 85% (31-73) Lymphocytes (%) (Auto) 12% (24-48) Monocytes (%) (Auto) 3% (0-9) Eosinophils (%) (Auto) 0% (0-3) Basophils (%) (Auto) 0% (0-3) Neutrophils # (Auto) 6.5x10^3uL (1.8-7.7) Lymphocytes # (Auto) 0.9x10^3/uL (1.0-4.8) Monocytes # (Auto) 0.2x10^3/uL (0.0-1.1) Eosinophils # (Auto) 0.0x10^3/uL (0.0-0.7) Basophils # (Auto) 0.0x10^3/uL (0.0-0.2) Prothrombin Time 18.3SEC (11.7-14.0) Prothromb Time International Ratio 1.6 (0.8-1.1) Sodium Level 140mmol/L (136-145) 140mmol/L (136-145) Potassium Level 4.9mmol/L (3.5-5.1) 5.0mmol/L (3.5-5.1) Chloride Level 102mmol/L (98-107) 105mmol/L (98-107) Carbon Dioxide Level 28mmol/L (21-32) 23mmol/L (21-32) Anion Gap 10 (6-14) 12 (6-14) Blood Urea Nitrogen 61mg/dL (8-26) 66mg/dL (8-26) Creatinine 6.3mg/dL (0.7-1.3) 6.5mg/dL (0.7-1.3) Estimated GFR (Cockcroft-Gault) 11.1 10.7 Glucose Level 85mg/dL (70-99) 33mg/dL (70-99) Lactic Acid Level 2.2mmol/L (0.4-2.0) 3.7mmol/L (0.4-2.0) Calcium Level 7.3mg/dL (8.5-10.1) 7.4mg/dL (8.5-10.1) Magnesium Level 1.8mg/dL (1.8-2.4) Total Bilirubin 0.9mg/dL (0.2-1.0) 0.9mg/dL (0.2-1.0) Direct Bilirubin 0.4mg/dL (0.0-0.2) Aspartate Amino Transf (AST/SGOT) 69U/L (15-37) 50U/L (15-37) Alanine Aminotransferase (ALT/SGPT) 36U/L (16-63) 28U/L (16-63) Alkaline Phosphatase 170U/L (46-116) 143U/L (46-116) Ammonia 43mcmol/L (11-34) Troponin I Quantitative < 0.017ng/mL (0.000-0.055) CI-Zer-H-Type Natriuretic Peptide 19916ez/mL (0-124) Total Protein 6.4g/dL (6.4-8.2) 5.6g/dL (6.4-8.2) Albumin 2.1g/dL (3.4-5.0) 1.7g/dL (3.4-5.0) BUN/Creatinine Ratio 10 (6-20) Albumin/Globulin Ratio 0.4 (1.0-1.7) Glucose (Fingerstick) 117mg/dL (70-99) Test 10/24/16 05:00 10/24/16 07:32 10/24/16 11:37 10/24/16 11:58 White Blood Count 6.9x10^3/uL (4.0-11.0) Red Blood Count 4.61x10^6/uL (4.30-5.70) Hemoglobin 13.2g/dL (13.0-17.5) Hematocrit 42.4% (39.0-53.0) Mean Corpuscular Volume 92fL (79-100) Mean Corpuscular Hemoglobin 29pg (25-35) Mean Corpuscular Hemoglobin Concent 31g/dL (31-37) Red Cell Distribution Width 18.4% (11.5-14.5) Platelet Count 70x10^3/uL (140-400) Neutrophils (%) (Auto) 87% (31-73) Lymphocytes (%) (Auto) 3% (24-48) Monocytes (%) (Auto) 9% (0-9) Eosinophils (%) (Auto) 0% (0-3) Basophils (%) (Auto) 0% (0-3) Neutrophils # (Auto) 6.0x10^3uL (1.8-7.7) Lymphocytes # (Auto) 0.2x10^3/uL (1.0-4.8) Monocytes # (Auto) 0.6x10^3/uL (0.0-1.1) Eosinophils # (Auto) 0.0x10^3/uL (0.0-0.7) Basophils # (Auto) 0.0x10^3/uL (0.0-0.2) Segmented Neutrophils % 73% (35-66) Band Neutrophils % 20% (0-9) Lymphocytes % 5% (24-48) Monocytes % 2% (0-10) Platelet Estimate Decreased (ADEQUATE) Poikilocytosis Present Target Cells Present Sodium Level 140mmol/L (136-145) Potassium Level 5.3mmol/L (3.5-5.1) Chloride Level 104mmol/L (98-107) Carbon Dioxide Level 23mmol/L (21-32) Anion Gap 13 (6-14) Blood Urea Nitrogen 66mg/dL (8-26) Creatinine 6.3mg/dL (0.7-1.3) Estimated GFR (Cockcroft-Gault) 11.1 Glucose Level 4mg/dL (70-99) Calcium Level 7.6mg/dL (8.5-10.1) Glucose (Fingerstick) 115mg/dL (70-99) 48mg/dL (70-99) 178mg/dL (70-99) Test 10/24/16 16:48 Glucose (Fingerstick) 45mg/dL (70-99) Laboratory Tests Test 10/23/16 21:15 10/24/16 00:10 10/24/16 01:37 10/24/16 05:00 Lactic Acid Level 3.7mmol/L (0.4-2.0) Sodium Level 140mmol/L (136-145) 140mmol/L (136-145) Potassium Level 5.0mmol/L (3.5-5.1) 5.3mmol/L (3.5-5.1) Chloride Level 105mmol/L (98-107) 104mmol/L (98-107) Carbon Dioxide Level 23mmol/L (21-32) 23mmol/L (21-32) Anion Gap 12 (6-14) 13 (6-14) Blood Urea Nitrogen 66mg/dL (8-26) 66mg/dL (8-26) Creatinine 6.5mg/dL (0.7-1.3) 6.3mg/dL (0.7-1.3) Estimated GFR (Cockcroft-Gault) 10.7 11.1 BUN/Creatinine Ratio 10 (6-20) Glucose Level 33mg/dL (70-99) 4mg/dL (70-99) Calcium Level 7.4mg/dL (8.5-10.1) 7.6mg/dL (8.5-10.1) Total Bilirubin 0.9mg/dL (0.2-1.0) Aspartate Amino Transf (AST/SGOT) 50U/L (15-37) Alanine Aminotransferase (ALT/SGPT) 28U/L (16-63) Alkaline Phosphatase 143U/L (46-116) Total Protein 5.6g/dL (6.4-8.2) Albumin 1.7g/dL (3.4-5.0) Albumin/Globulin Ratio 0.4 (1.0-1.7) Glucose (Fingerstick) 117mg/dL (70-99) White Blood Count 6.9x10^3/uL (4.0-11.0) Red Blood Count 4.61x10^6/uL (4.30-5.70) Hemoglobin 13.2g/dL (13.0-17.5) Hematocrit 42.4% (39.0-53.0) Mean Corpuscular Volume 92fL (79-100) Mean Corpuscular Hemoglobin 29pg (25-35) Mean Corpuscular Hemoglobin Concent 31g/dL (31-37) Red Cell Distribution Width 18.4% (11.5-14.5) Platelet Count 70x10^3/uL (140-400) Neutrophils (%) (Auto) 87% (31-73) Lymphocytes (%) (Auto) 3% (24-48) Monocytes (%) (Auto) 9% (0-9) Eosinophils (%) (Auto) 0% (0-3) Basophils (%) (Auto) 0% (0-3) Neutrophils # (Auto) 6.0x10^3uL (1.8-7.7) Lymphocytes # (Auto) 0.2x10^3/uL (1.0-4.8) Monocytes # (Auto) 0.6x10^3/uL (0.0-1.1) Eosinophils # (Auto) 0.0x10^3/uL (0.0-0.7) Basophils # (Auto) 0.0x10^3/uL (0.0-0.2) Segmented Neutrophils % 73% (35-66) Band Neutrophils % 20% (0-9) Lymphocytes % 5% (24-48) Monocytes % 2% (0-10) Platelet Estimate Decreased (ADEQUATE) Poikilocytosis Present Target Cells Present Test 10/24/16 07:32 10/24/16 11:37 10/24/16 11:58 10/24/16 16:48 Glucose (Fingerstick) 115mg/dL (70-99) 48mg/dL (70-99) 178mg/dL (70-99) 45mg/dL (70-99) Assessment/Plan Assessment/Plan ESRD HYPOTENSION MALNUTRITION ( moderate ) HD support. labs. Correct sugars. PPN. Thank you Carie Merino M.D. CARIE MERINO MD Oct 24, 2016 17:46
[2016-10-24] MEDS: DEXTROSE ORAL GEL 15 GM TUBE. PO PRN (17:50)
[2016-10-24] MEDS: AMINO AC 3%/ELECTROLYTE/GLYCER 1,000 ML IV SCH (18:20)
[2016-10-24 19:00] VITALS: BP 96/66
--- NOTE | 2016-10-24 22:12 | RAD ---
PROCEDURE AP chest radiograph. HISTORY PICC line placement. COMPARISON October 23, 2016. FINDINGS Suboptimal inspiration is noted. Cardiac silhouette appears within normal limits for size. Bibasilar densities are favored to be atelectasis. Right internal jugular dialysis catheter is unchanged. There has been interval placement of left-sided PICC line with the tip of the PICC line projecting at the atriocaval junction. IMPRESSION 1. Tip of the PICC line projects at the atriocaval junction. 2. Bibasilar atelectasis. Electronically signed by: Milton Neal MD (Oct 24, 2016 22:11:25)
[2016-10-24] MEDS: HEPARIN PF for SUB-Q USE 5,000 UNIT/0.5 ML VIAL. SQ SCH (22:19)
--- NOTE | 2016-10-24 23:24 | CONS ---
DATE OF CONSULTATION: 10/24/2016 REQUESTING PHYSICIAN: Dr. Thomas. REASON FOR CONSULTATION: Positive blood cultures. HISTORY OF PRESENT ILLNESS: This patient is a 56-year-old -[place] male with a past medical history of chronic kidney disease on hemodialysis, diabetes mellitus, and cirrhosis of the liver who was sent to the ER from dialysis center after a syncopal episode. On arrival, he had a normal temperature and WBC count with a lactic acid of 2.2. Blood cultures have returned positive for gram-variable rods in 2 of 4 bottles. Our service was called and started piperacillin/tazobactam as well as oral vancomycin for history of Clostridium difficile colitis. The patient had multiple hospitalizations for refractory ascites necessitating drainage. Previous cultures were negative. The most recent paracentesis was on 09/29/2016. A review of his MAR from the long-term, no recent antibiotics listed. Since admission he has had several episodes of hypoglycemia. His stools have been formed. No fevers or vomiting reported. PAST MEDICAL HISTORY: Recurring Clostridium difficile colitis, most recent 08/29/2016. Chronic kidney disease on hemodialysis, alcoholic liver disease, cirrhosis of liver with refractory ascites, hyperlipidemia, hypertension, chronic obstructive pulmonary disease, dementia, gout, diabetes mellitus, hypothyroidism, osteoarthritis, cardiomyopathy, congestive heart failure, gastroesophageal reflux disease and hepatitis C. Degenerative disk disease, blood transfusions, and pressure ulcer. PAST SURGICAL HISTORY: Right-sided chest hemodialysis catheter placement and right shoulder surgery. SOCIAL HISTORY: long-term resident. FAMILY HISTORY: Noncontributory. ALLERGIES: No known drug allergies. MEDICATIONS: Reviewed in the MAR and include probiotics. REVIEW OF SYSTEMS: Unobtainable as the patient is nonverbal. PHYSICAL EXAMINATION: GENERAL: Cachectic-appearing -[place] female, propped up in bed, in no apparent distress. VITAL SIGNS: Temperature is 99.1, blood pressure 103/73, heart rate 77, respiratory rate 20, pulse oximetry is 98% on room air, weight is 158 pounds. HEENT: Pupils are equally round and reactive. Normal conjunctivae pink and moist. NECK: Supple. LUNGS: Diminished aeration in the bases. HEART: Normal S1 and S2. ABDOMEN: Distended, bowel sounds are present. Somewhat firm, soft, moan to palpation. EXTREMITIES: No gross edema or cyanosis. SKIN: Without rash. Warm to touch. NEUROLOGIC: Sleepy, follows simple commands. LINES: HCC. No redness, swelling or drainage noted. LABORATORY DATA: Today's WBC 6.9, hemoglobin 13.2, platelet count 70,000, segs 73%, bands 20% bands. Sodium 140, potassium 5.3, creatinine 6.3. BUN 66, glucose 178 from 4, calcium 7.6. Ammonia 43, total bilirubin 0.9, AST 50, ALT 28, and albumin 1.7. Blood cultures show gram-variable rods in 2 of 4 bottles. IMAGING STUDIES: Chest x-ray shows suboptimal inspiration with mild bibasilar discoid atelectasis and/or scarring. IMPRESSION: 1. Gram-variable rods, sepsis, present on admission. 2. Bandemia. 3. History of recent Clostridium difficile. 4. Chronic kidney disease on hemodialysis. 5. Cirrhosis of liver with refractory ascites. 6. Diabetes mellitus with hyperglycemia. 7. Debility. PLAN: Continue the piperacillin/tazobactam and oral vancomycin prophylaxis. Await identification of gram-variable rods. Monitor laboratory values. Supportive care. Thank you, Dr. Thomas for asking us to participate in this patient's care. Should you have further questions or concerns, please call. The patient seen and examined and plan of care implemented by Dr. Marques Clifton. MARQUES CLIFTON MD DR: SAL/melissa JOB#: [id number] / [id number] TARYN
[2016-10-24 23:33] VITALS: BP 93/63
[2016-10-25] MEDS: DEXTROSE 50% 25 GM / 50ML DISP.SYRIN. IV PRN ×6 (01:25→21:40)
[2016-10-25 03:00] VITALS: BP 89/60
[2016-10-25 05:22] LABS: CALCIUM 6.8 mg/dL (8.5-10.1); CREATININE 6.3 mg/dL (0.7-1.3); GFR 11.1
[2016-10-25 05:27] LABS: POTASSIUM 6.8 mmol/L (3.5-5.1)
[2016-10-25 05:40] LABS: BASO % 0 % (0-3); EOS % 0 % (0-3); HEMATOCRIT 37.2 % (39.0-53.0); HEMOGLOBIN 11.6 g/dL (13.0-17.5); LYMPH # 0.3 x10^3/uL (1.0-4.8); LYMPH % 5 % (24-48); MEAN CORPUSCULAR HEMOGLOBIN 29 pg (25-35); MEAN CORPUSCULAR HGB CONC 31 g/dL (31-37); MEAN CORPUSCULAR VOLUME 92 fL (79-100); MONO % 5 % (0-9); NEUT % 90 % (31-73); RED BLOOD COUNT 4.03 x10^6/uL (4.30-5.70); RED CELL DISTRIBUTION WIDTH 18.2 % (11.5-14.5); WHITE BLOOD COUNT 6.8 x10^3/uL (4.0-11.0)
[2016-10-25] MEDS: HEPARIN PF for SUB-Q USE 5,000 UNIT/0.5 ML VIAL. SQ SCH (06:09)
[2016-10-25] MEDS: PIPERACILLIN/TAZOBACTAM 2.25 GM in IV NORMAL SALINE 50ML 50 ML IV SCH ×3 (06:09→18:29)
[2016-10-25] MEDS: VANCOMYCIN 125 MG/2.5 ML ORAL SOLUTION. PO SCH ×3 (06:09→18:29)
[2016-10-25 06:20] LABS: PLATELET COUNT 34 x10^3/uL (140-400); PLT ESTIMATE DECREASED (ADEQUATE)
[2016-10-25 06:21] LABS: BURR CELLS FEW; POIKILOCYTOSIS PRESENT; SCHISTOCYTES FEW
[2016-10-25] MEDS ORDERED: SODIUM POLYSTYRENE SULFONATE 15 GM/60 ML ORAL.SUSP. PO ONE (07:00)
[2016-10-25 07:12] VITALS: BP 110/74
[2016-10-25] MEDS ORDERED: MAGNESIUM SULFATE 2GM 50 ML IV PRN (07:30)
[2016-10-25] MEDS: INSULIN ASPART 300 UNITS/3 ML INSULN.PEN SQ SCH ×3 (07:30→16:30)
[2016-10-25] MEDS: POTASSIUM CHLORIDE 10 MEQ TABLET.ER. PO SCH (08:00)
[2016-10-25] MEDS: CALCIUM ACETATE 667 MG CAPSULE PO SCH ×3 (08:00→17:00)
[2016-10-25 08:28] LABS: POTASSIUM 5.6 mmol/L (3.5-5.1)
[2016-10-25] MEDS ORDERED: ALBUMIN HUMAN 25% 100 ML IV ONE (08:30)
[2016-10-25] MEDS ORDERED: ALBUMIN HUMAN 25% 50 ML IV ONE (08:30)
[2016-10-25] MEDS ORDERED: DIALYSIS PATIENT. MC PRN ×4 (08:45→09:00)
--- NOTE | 2016-10-25 08:47 | PDOC ---
Dialysis Progress Note Dialysis Note Dialysis Note Seen on Hemodialysis, tolerating treatment Okay Vitals on Hemodialysis: 64/37 144 General Appearance: Awake: Alert Oriented x ? 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 [ ] Vitals Vital Signs Vital Signs Date Time Temp Pulse Resp B/P Pulse Ox O2 Delivery O2 Flow Rate FiO2 10/25/16 07:12 97.5 86 20 110/74 96 Nasal Cannula 2.0 97.5 Labs Last Labs Laboratory Tests Test 10/23/16 17:11 10/23/16 21:15 10/24/16 00:10 10/24/16 01:37 White Blood Count 7.6x10^3/uL (4.0-11.0) Red Blood Count 4.66x10^6/uL (4.30-5.70) Hemoglobin 13.1g/dL (13.0-17.5) Hematocrit 42.3% (39.0-53.0) Mean Corpuscular Volume 91fL (79-100) Mean Corpuscular Hemoglobin 28pg (25-35) Mean Corpuscular Hemoglobin Concent 31g/dL (31-37) Red Cell Distribution Width 18.0% (11.5-14.5) Platelet Count 85x10^3/uL (140-400) Neutrophils (%) (Auto) 85% (31-73) Lymphocytes (%) (Auto) 12% (24-48) Monocytes (%) (Auto) 3% (0-9) Eosinophils (%) (Auto) 0% (0-3) Basophils (%) (Auto) 0% (0-3) Neutrophils # (Auto) 6.5x10^3uL (1.8-7.7) Lymphocytes # (Auto) 0.9x10^3/uL (1.0-4.8) Monocytes # (Auto) 0.2x10^3/uL (0.0-1.1) Eosinophils # (Auto) 0.0x10^3/uL (0.0-0.7) Basophils # (Auto) 0.0x10^3/uL (0.0-0.2) Prothrombin Time 18.3SEC (11.7-14.0) Prothromb Time International Ratio 1.6 (0.8-1.1) Sodium Level 140mmol/L (136-145) 140mmol/L (136-145) Potassium Level 4.9mmol/L (3.5-5.1) 5.0mmol/L (3.5-5.1) Chloride Level 102mmol/L (98-107) 105mmol/L (98-107) Carbon Dioxide Level 28mmol/L (21-32) 23mmol/L (21-32) Anion Gap 10 (6-14) 12 (6-14) Blood Urea Nitrogen 61mg/dL (8-26) 66mg/dL (8-26) Creatinine 6.3mg/dL (0.7-1.3) 6.5mg/dL (0.7-1.3) Estimated GFR (Cockcroft-Gault) 11.1 10.7 Glucose Level 85mg/dL (70-99) 33mg/dL (70-99) Lactic Acid Level 2.2mmol/L (0.4-2.0) 3.7mmol/L (0.4-2.0) Calcium Level 7.3mg/dL (8.5-10.1) 7.4mg/dL (8.5-10.1) Magnesium Level 1.8mg/dL (1.8-2.4) Total Bilirubin 0.9mg/dL (0.2-1.0) 0.9mg/dL (0.2-1.0) Direct Bilirubin 0.4mg/dL (0.0-0.2) Aspartate Amino Transf (AST/SGOT) 69U/L (15-37) 50U/L (15-37) Alanine Aminotransferase (ALT/SGPT) 36U/L (16-63) 28U/L (16-63) Alkaline Phosphatase 170U/L (46-116) 143U/L (46-116) Ammonia 43mcmol/L (11-34) Troponin I Quantitative < 0.017ng/mL (0.000-0.055) NM-Wex-U-Type Natriuretic Peptide 33711fp/mL (0-124) Total Protein 6.4g/dL (6.4-8.2) 5.6g/dL (6.4-8.2) Albumin 2.1g/dL (3.4-5.0) 1.7g/dL (3.4-5.0) BUN/Creatinine Ratio 10 (6-20) Albumin/Globulin Ratio 0.4 (1.0-1.7) Glucose (Fingerstick) 117mg/dL (70-99) Test 10/24/16 05:00 10/24/16 07:32 10/24/16 11:37 10/24/16 11:58 White Blood Count 6.9x10^3/uL (4.0-11.0) Red Blood Count 4.61x10^6/uL (4.30-5.70) Hemoglobin 13.2g/dL (13.0-17.5) Hematocrit 42.4% (39.0-53.0) Mean Corpuscular Volume 92fL (79-100) Mean Corpuscular Hemoglobin 29pg (25-35) Mean Corpuscular Hemoglobin Concent 31g/dL (31-37) Red Cell Distribution Width 18.4% (11.5-14.5) Platelet Count 70x10^3/uL (140-400) Neutrophils (%) (Auto) 87% (31-73) Lymphocytes (%) (Auto) 3% (24-48) Monocytes (%) (Auto) 9% (0-9) Eosinophils (%) (Auto) 0% (0-3) Basophils (%) (Auto) 0% (0-3) Neutrophils # (Auto) 6.0x10^3uL (1.8-7.7) Lymphocytes # (Auto) 0.2x10^3/uL (1.0-4.8) Monocytes # (Auto) 0.6x10^3/uL (0.0-1.1) Eosinophils # (Auto) 0.0x10^3/uL (0.0-0.7) Basophils # (Auto) 0.0x10^3/uL (0.0-0.2) Segmented Neutrophils % 73% (35-66) Band Neutrophils % 20% (0-9) Lymphocytes % 5% (24-48) Monocytes % 2% (0-10) Platelet Estimate Decreased (ADEQUATE) Poikilocytosis Present Target Cells Present Sodium Level 140mmol/L (136-145) Potassium Level 5.3mmol/L (3.5-5.1) Chloride Level 104mmol/L (98-107) Carbon Dioxide Level 23mmol/L (21-32) Anion Gap 13 (6-14) Blood Urea Nitrogen 66mg/dL (8-26) Creatinine 6.3mg/dL (0.7-1.3) Estimated GFR (Cockcroft-Gault) 11.1 Glucose Level 4mg/dL (70-99) Calcium Level 7.6mg/dL (8.5-10.1) Glucose (Fingerstick) 115mg/dL (70-99) 48mg/dL (70-99) 178mg/dL (70-99) Test 10/24/16 16:48 10/24/16 18:00 10/24/16 18:11 10/24/16 19:30 Glucose (Fingerstick) 45mg/dL (70-99) 39mg/dL (70-99) 136mg/dL (70-99) Glucose Level 145mg/dL (70-99) Ammonia 133mcmol/L (11-34) Test 10/24/16 21:08 10/25/16 01:10 10/25/16 01:16 10/25/16 01:42 Glucose (Fingerstick) 81mg/dL (70-99) 27mg/dL (70-99) 15mg/dL (70-99) 79mg/dL (70-99) Test 10/25/16 04:06 10/25/16 04:30 10/25/16 07:56 Glucose (Fingerstick) 87mg/dL (70-99) White Blood Count 6.8x10^3/uL (4.0-11.0) Red Blood Count 4.03x10^6/uL (4.30-5.70) Hemoglobin 11.6g/dL (13.0-17.5) Hematocrit 37.2% (39.0-53.0) Mean Corpuscular Volume 92fL (79-100) Mean Corpuscular Hemoglobin 29pg (25-35) Mean Corpuscular Hemoglobin Concent 31g/dL (31-37) Red Cell Distribution Width 18.2% (11.5-14.5) Platelet Count 34x10^3/uL (140-400) Neutrophils (%) (Auto) 90% (31-73) Lymphocytes (%) (Auto) 5% (24-48) Monocytes (%) (Auto) 5% (0-9) Eosinophils (%) (Auto) 0% (0-3) Basophils (%) (Auto) 0% (0-3) Neutrophils # (Auto) 6.1x10^3uL (1.8-7.7) Lymphocytes # (Auto) 0.3x10^3/uL (1.0-4.8) Monocytes # (Auto) 0.4x10^3/uL (0.0-1.1) Eosinophils # (Auto) 0.0x10^3/uL (0.0-0.7) Basophils # (Auto) 0.0x10^3/uL (0.0-0.2) Platelet Estimate Decreased (ADEQUATE) Large Platelets Present Poikilocytosis Present [place] Cells Few Schistocytes Few Sodium Level 133mmol/L (136-145) Potassium Level 6.8mmol/L (3.5-5.1) 5.6mmol/L (3.5-5.1) Chloride Level 100mmol/L (98-107) Carbon Dioxide Level 23mmol/L (21-32) Anion Gap 10 (6-14) Blood Urea Nitrogen 76mg/dL (8-26) Creatinine 6.3mg/dL (0.7-1.3) Estimated GFR (Cockcroft-Gault) 11.1 Glucose Level 88mg/dL (70-99) Calcium Level 6.8mg/dL (8.5-10.1) Creatine Kinase 144U/L (39-308) Laboratory Tests Test 10/24/16 11:37 10/24/16 11:58 10/24/16 16:48 10/24/16 18:00 Glucose (Fingerstick) 48mg/dL (70-99) 178mg/dL (70-99) 45mg/dL (70-99) 39mg/dL (70-99) Test 10/24/16 18:11 10/24/16 19:30 10/24/16 21:08 10/25/16 01:10 Glucose (Fingerstick) 136mg/dL (70-99) 81mg/dL (70-99) 27mg/dL (70-99) Glucose Level 145mg/dL (70-99) Ammonia 133mcmol/L (11-34) Test 10/25/16 01:16 10/25/16 01:42 10/25/16 04:06 10/25/16 04:30 Glucose (Fingerstick) 15mg/dL (70-99) 79mg/dL (70-99) 87mg/dL (70-99) White Blood Count 6.8x10^3/uL (4.0-11.0) Red Blood Count 4.03x10^6/uL (4.30-5.70) Hemoglobin 11.6g/dL (13.0-17.5) Hematocrit 37.2% (39.0-53.0) Mean Corpuscular Volume 92fL (79-100) Mean Corpuscular Hemoglobin 29pg (25-35) Mean Corpuscular Hemoglobin Concent 31g/dL (31-37) Red Cell Distribution Width 18.2% (11.5-14.5) Platelet Count 34x10^3/uL (140-400) Neutrophils (%) (Auto) 90% (31-73) Lymphocytes (%) (Auto) 5% (24-48) Monocytes (%) (Auto) 5% (0-9) Eosinophils (%) (Auto) 0% (0-3) Basophils (%) (Auto) 0% (0-3) Neutrophils # (Auto) 6.1x10^3uL (1.8-7.7) Lymphocytes # (Auto) 0.3x10^3/uL (1.0-4.8) Monocytes # (Auto) 0.4x10^3/uL (0.0-1.1) Eosinophils # (Auto) 0.0x10^3/uL (0.0-0.7) Basophils # (Auto) 0.0x10^3/uL (0.0-0.2) Platelet Estimate Decreased (ADEQUATE) Large Platelets Present Poikilocytosis Present [place] Cells Few Schistocytes Few Sodium Level 133mmol/L (136-145) Potassium Level 6.8mmol/L (3.5-5.1) Chloride Level 100mmol/L (98-107) Carbon Dioxide Level 23mmol/L (21-32) Anion Gap 10 (6-14) Blood Urea Nitrogen 76mg/dL (8-26) Creatinine 6.3mg/dL (0.7-1.3) Estimated GFR (Cockcroft-Gault) 11.1 Glucose Level 88mg/dL (70-99) Calcium Level 6.8mg/dL (8.5-10.1) Test 10/25/16 07:56 Potassium Level 5.6mmol/L (3.5-5.1) Creatine Kinase 144U/L (39-308) Assessment Assessment Problems Medical Problems: (1) Ascites Status: Acute (2) ESRD (end stage renal disease) on dialysis Status: Acute (3) SVT (supraventricular tachycardia) Status: Acute (4) Syncope Status: Acute Problems: Plan Plan of Care Problems Medical Problems: (1) Ascites Status: Acute (2) ESRD (end stage renal disease) on dialysis Status: Acute (3) SVT (supraventricular tachycardia) Status: Acute (4) Syncope Status: Acute CELINA CLIFTON MD Oct 25, 2016 08:47
[2016-10-25] MEDS ORDERED: IV NORMAL SALINE 1000ML BAG 1,000 ML IV PRN (08:54)
[2016-10-25] MEDS: MIDODRINE 5 MG TABLET PO SCH ×2 (09:00→12:55)
[2016-10-25] MEDS ORDERED: 0.9 % SODIUM CHLORIDE 10 ML DISP.SYRIN. IV PRN ×2 (09:00)
[2016-10-25] MEDS: ALLOPURINOL 100 MG TABLET. PO SCH (09:00)
[2016-10-25] MEDS: FERROUS SULFATE 325 MG TABLET. PO SCH (09:00)
[2016-10-25] MEDS: CALCIUM CARB/VIT D3 500/200 TABLET. PO SCH ×3 (09:00→21:07)
[2016-10-25] MEDS ORDERED: ALBUMIN HUMAN 25% 200 ML IV PRN (09:00)
[2016-10-25] MEDS: LACTOBACILLUS ACIDOPH & BULGAR 1 TABLET. PO SCH (09:00)
[2016-10-25] MEDS: METOPROLOL TART IMMED RELEASE 25 MG TABLET. PO SCH ×2 (09:00→21:06)
--- NOTE | 2016-10-25 11:26 | PDOC ---
Infectious Disease Note Subjective Subjective Hypotensive during dialysis responsive to fluids and albumen. Denies pain No fever Vital Sign Vital Signs Vital Signs Date Time Temp Pulse Resp B/P Pulse Ox O2 Delivery O2 Flow Rate FiO2 10/25/16 07:12 97.5 86 20 110/74 96 Nasal Cannula 2.0 97.5 Physical Exam PHYSICAL EXAM GENERAL: Cachectic, arouses easily to name. LUNGS: Diminished aeration in the bases. HEART: Normal S1 and S2. ABDOMEN: Distended, bowel sounds are present. Somewhat firm, soft, NT EXTREMITIES: BLE trace edema. SKIN: Without rash. Warm to touch. NEUROLOGIC: Follows commands. HDC. No redness, swelling or drainage noted. Labs Lab Laboratory Tests Test 10/24/16 11:37 10/24/16 11:58 10/24/16 16:48 10/24/16 18:00 Glucose (Fingerstick) 48mg/dL (70-99) 178mg/dL (70-99) 45mg/dL (70-99) 39mg/dL (70-99) Test 10/24/16 18:11 10/24/16 19:30 10/24/16 21:08 10/25/16 01:10 Glucose (Fingerstick) 136mg/dL (70-99) 81mg/dL (70-99) 27mg/dL (70-99) Glucose Level 145mg/dL (70-99) Ammonia 133mcmol/L (11-34) Test 10/25/16 01:16 10/25/16 01:42 10/25/16 04:06 10/25/16 04:30 Glucose (Fingerstick) 15mg/dL (70-99) 79mg/dL (70-99) 87mg/dL (70-99) White Blood Count 6.8x10^3/uL (4.0-11.0) Red Blood Count 4.03x10^6/uL (4.30-5.70) Hemoglobin 11.6g/dL (13.0-17.5) Hematocrit 37.2% (39.0-53.0) Mean Corpuscular Volume 92fL (79-100) Mean Corpuscular Hemoglobin 29pg (25-35) Mean Corpuscular Hemoglobin Concent 31g/dL (31-37) Red Cell Distribution Width 18.2% (11.5-14.5) Platelet Count 34x10^3/uL (140-400) Neutrophils (%) (Auto) 90% (31-73) Lymphocytes (%) (Auto) 5% (24-48) Monocytes (%) (Auto) 5% (0-9) Eosinophils (%) (Auto) 0% (0-3) Basophils (%) (Auto) 0% (0-3) Neutrophils # (Auto) 6.1x10^3uL (1.8-7.7) Lymphocytes # (Auto) 0.3x10^3/uL (1.0-4.8) Monocytes # (Auto) 0.4x10^3/uL (0.0-1.1) Eosinophils # (Auto) 0.0x10^3/uL (0.0-0.7) Basophils # (Auto) 0.0x10^3/uL (0.0-0.2) Platelet Estimate Decreased (ADEQUATE) Large Platelets Present Poikilocytosis Present [place] Cells Few Schistocytes Few Sodium Level 133mmol/L (136-145) Potassium Level 6.8mmol/L (3.5-5.1) Chloride Level 100mmol/L (98-107) Carbon Dioxide Level 23mmol/L (21-32) Anion Gap 10 (6-14) Blood Urea Nitrogen 76mg/dL (8-26) Creatinine 6.3mg/dL (0.7-1.3) Estimated GFR (Cockcroft-Gault) 11.1 Glucose Level 88mg/dL (70-99) Calcium Level 6.8mg/dL (8.5-10.1) Test 10/25/16 07:56 Potassium Level 5.6mmol/L (3.5-5.1) Creatine Kinase 144U/L (39-308) Micro BLD CULT RESULT 1 Preliminary Gram negative rods Objective Assessment Gram variable rods sepsis POA. GNR Bandemia H/o recent c. diff CKD on HD Cirrhosis of liver w/ refractory ascites DM with hypoglycemia Debility SVT Thrombocytopenia Plan Plan of Care Zosyn Po vancomycin BID for prophylaxis Await ID gram variable rods/GNR Monitor labs Supportive care Attending Co-Sign The patient was seen and interviewed as well as examined at the bedside. The chart was reviewed. The case was discussed. Agree with the plan of care. ADITYA NORTON APRN Oct 25, 2016 11:26 CARMINE CLIFTON MD Oct 25, 2016 12:45
[2016-10-25] MEDS: LEVOTHYROXINE 25 MCG TABLET. PO SCH (12:45)
[2016-10-25] MEDS: FAMOTIDINE 20 MG TABLET. PO SCH (12:46)
[2016-10-25] MEDS: oxyCODONE IR 5 MG TABLET PO PRN ×2 (12:47→21:07)
[2016-10-25] MEDS: FOLIC ACID 1 MG TABLET. PO SCH (12:54)
[2016-10-25] MEDS: SODIUM BICARBONATE 650 MG TABLET. PO SCH ×2 (12:56→21:06)
[2016-10-25] MEDS: CALCIUM GLUCONATE 1,000 MG/10 ML VIAL. IVP SCH ×3 (14:41→17:11)
[2016-10-25 15:02] VITALS: BP 100/70
--- NOTE | 2016-10-25 15:19 | PDOC ---
PROGRESS NOTES Chief Complaint Chief Complaint cc: ? syncopal episode, SVT, ESRD, chronic hypotension ESRD, on HD anemia of chronic disease chronic diastolic heart failure DM type II GERD hyperlipidemia hypertension, hypothyroidism hepatitis cirrhosis with chronic ascites gout cardiomyopathy prior C. diff. History of Present Illness History of Present Illness Patient seen and evaluated at bedside. Patient underwent dialysis, during which he became hypotensive. Upon return, patient's glucose levels remains labile, dropping down to the 20-40s. Hypoglycemia protocol initiated. d/w nursing about plan of care. Vitals Vitals Vital Signs Date Time Temp Pulse Resp B/P Pulse Ox O2 Delivery O2 Flow Rate FiO2 10/25/16 15:02 96.8 123 20 100/70 97 Nasal Cannula 2.0 96.8 Physical Exam General: Alert (responds to voice. unable to follow all commands. ), Cooperative, No acute distress, Other (emiaciated. temporal wasting ) Heart: Normal S1, Other (tachycardia, on midorinine gtt. ) Lungs: Clear, Other (diminished inspiratory effort. negative chest retractions and/or accessory muscle use. ) Abdomen: Soft, No tenderness, Other (chronic ascites. negative peritoneal signs. ) Extremities: No cyanosis, Other (+2 pitting edema bilaterally. peripheral pulses 2/4 bilaterally. ) Skin: Other (Left ankle ulcer. Right shoulder ulcer. dressing placed. ) Labs LABS Laboratory Tests Test 10/24/16 16:48 10/24/16 18:00 10/24/16 18:11 10/24/16 19:30 Glucose (Fingerstick) 45mg/dL (70-99) 39mg/dL (70-99) 136mg/dL (70-99) Glucose Level 145mg/dL (70-99) Ammonia 133mcmol/L (11-34) Test 10/24/16 21:08 10/25/16 01:10 10/25/16 01:16 10/25/16 01:42 Glucose (Fingerstick) 81mg/dL (70-99) 27mg/dL (70-99) 15mg/dL (70-99) 79mg/dL (70-99) Test 10/25/16 04:06 10/25/16 04:30 10/25/16 07:56 10/25/16 11:29 Glucose (Fingerstick) 87mg/dL (70-99) 24mg/dL (70-99) White Blood Count 6.8x10^3/uL (4.0-11.0) Red Blood Count 4.03x10^6/uL (4.30-5.70) Hemoglobin 11.6g/dL (13.0-17.5) Hematocrit 37.2% (39.0-53.0) Mean Corpuscular Volume 92fL (79-100) Mean Corpuscular Hemoglobin 29pg (25-35) Mean Corpuscular Hemoglobin Concent 31g/dL (31-37) Red Cell Distribution Width 18.2% (11.5-14.5) Platelet Count 34x10^3/uL (140-400) Neutrophils (%) (Auto) 90% (31-73) Lymphocytes (%) (Auto) 5% (24-48) Monocytes (%) (Auto) 5% (0-9) Eosinophils (%) (Auto) 0% (0-3) Basophils (%) (Auto) 0% (0-3) Neutrophils # (Auto) 6.1x10^3uL (1.8-7.7) Lymphocytes # (Auto) 0.3x10^3/uL (1.0-4.8) Monocytes # (Auto) 0.4x10^3/uL (0.0-1.1) Eosinophils # (Auto) 0.0x10^3/uL (0.0-0.7) Basophils # (Auto) 0.0x10^3/uL (0.0-0.2) Platelet Estimate Decreased (ADEQUATE) Large Platelets Present Poikilocytosis Present [place] Cells Few Schistocytes Few Sodium Level 133mmol/L (136-145) Potassium Level 6.8mmol/L (3.5-5.1) 5.6mmol/L (3.5-5.1) Chloride Level 100mmol/L (98-107) Carbon Dioxide Level 23mmol/L (21-32) Anion Gap 10 (6-14) Blood Urea Nitrogen 76mg/dL (8-26) Creatinine 6.3mg/dL (0.7-1.3) Estimated GFR (Cockcroft-Gault) 11.1 Glucose Level 88mg/dL (70-99) Calcium Level 6.8mg/dL (8.5-10.1) Creatine Kinase 144U/L (39-308) Test 10/25/16 11:40 10/25/16 12:02 Potassium Level 4.0mmol/L (3.5-5.1) Glucose Level 32mg/dL (70-99) Glucose (Fingerstick) 88mg/dL (70-99) Review of Systems Review of Systems Unable to obtain ROS secondary to patient is a poor historian and patient's mental status. Assessment and Plan Assessmemt and Plan Problems Medical Problems: (1) Ascites Status: Acute (2) ESRD (end stage renal disease) on dialysis Status: Acute (3) SVT (supraventricular tachycardia) Status: Acute (4) Syncope Status: Acute ASSESSMENT AND PLAN: 1. Supraventricular tachycardia, POA. coverted with digoxin. currently on metropolol for rate control per cardiology 2. chronic Hypotension. currently on midodrine gtt 3. gram variable bactremia 4. Thrombocytopenia - drop in platelets to 30,000 5. End-stage renal disease, on hemodialysis. 6. End-stage liver disease. ? hepatic encephalopathy 7. chronic diastolic heart failure, stable. 8. Moderate to severe protein malnutrition. 9. Diabetes mellitus. 10. Hyperlipidemia. 11. hx of prior c.diff infection PLAN: 1. continue with telemetry monitoring. 2. Nephrology management for hemodialysis 3. resume Home medications as appropriate 4. consider Paracentesis if the patient stays more than 3 days in the hospital. No current shortness of breath. consider suspicion for SBP, especially if cultures showing GNR. 5. hold heparin with drop in platelets. 6. monitor AM labs. 7. continue SSI with glucose checks AC 8. PT/OT 9. refused paliative care options. consulted palliative care to discuss goals of extermination inspector care. 10. referral to executive secretary social welfare for SNU evaluation. 11. continue zosyn and start PO vancomycin ppx, per ID 12. f/u on cultures. 13. appreciate subspecialty input. Problems: Comment Review of Relevant I have reviewed the following items дмитрий (where applicable) has been applied. Labs Laboratory Tests Test 10/23/16 17:11 10/23/16 21:15 10/24/16 00:10 10/24/16 01:37 White Blood Count 7.6x10^3/uL (4.0-11.0) Red Blood Count 4.66x10^6/uL (4.30-5.70) Hemoglobin 13.1g/dL (13.0-17.5) Hematocrit 42.3% (39.0-53.0) Mean Corpuscular Volume 91fL (79-100) Mean Corpuscular Hemoglobin 28pg (25-35) Mean Corpuscular Hemoglobin Concent 31g/dL (31-37) Red Cell Distribution Width 18.0% (11.5-14.5) Platelet Count 85x10^3/uL (140-400) Neutrophils (%) (Auto) 85% (31-73) Lymphocytes (%) (Auto) 12% (24-48) Monocytes (%) (Auto) 3% (0-9) Eosinophils (%) (Auto) 0% (0-3) Basophils (%) (Auto) 0% (0-3) Neutrophils # (Auto) 6.5x10^3uL (1.8-7.7) Lymphocytes # (Auto) 0.9x10^3/uL (1.0-4.8) Monocytes # (Auto) 0.2x10^3/uL (0.0-1.1) Eosinophils # (Auto) 0.0x10^3/uL (0.0-0.7) Basophils # (Auto) 0.0x10^3/uL (0.0-0.2) Prothrombin Time 18.3SEC (11.7-14.0) Prothromb Time International Ratio 1.6 (0.8-1.1) Sodium Level 140mmol/L (136-145) 140mmol/L (136-145) Potassium Level 4.9mmol/L (3.5-5.1) 5.0mmol/L (3.5-5.1) Chloride Level 102mmol/L (98-107) 105mmol/L (98-107) Carbon Dioxide Level 28mmol/L (21-32) 23mmol/L (21-32) Anion Gap 10 (6-14) 12 (6-14) Blood Urea Nitrogen 61mg/dL (8-26) 66mg/dL (8-26) Creatinine 6.3mg/dL (0.7-1.3) 6.5mg/dL (0.7-1.3) Estimated GFR (Cockcroft-Gault) 11.1 10.7 Glucose Level 85mg/dL (70-99) 33mg/dL (70-99) Lactic Acid Level 2.2mmol/L (0.4-2.0) 3.7mmol/L (0.4-2.0) Calcium Level 7.3mg/dL (8.5-10.1) 7.4mg/dL (8.5-10.1) Magnesium Level 1.8mg/dL (1.8-2.4) Total Bilirubin 0.9mg/dL (0.2-1.0) 0.9mg/dL (0.2-1.0) Direct Bilirubin 0.4mg/dL (0.0-0.2) Aspartate Amino Transf (AST/SGOT) 69U/L (15-37) 50U/L (15-37) Alanine Aminotransferase (ALT/SGPT) 36U/L (16-63) 28U/L (16-63) Alkaline Phosphatase 170U/L (46-116) 143U/L (46-116) Ammonia 43mcmol/L (11-34) Troponin I Quantitative < 0.017ng/mL (0.000-0.055) GD-Ukc-P-Type Natriuretic Peptide 70218km/mL (0-124) Total Protein 6.4g/dL (6.4-8.2) 5.6g/dL (6.4-8.2) Albumin 2.1g/dL (3.4-5.0) 1.7g/dL (3.4-5.0) BUN/Creatinine Ratio 10 (6-20) Albumin/Globulin Ratio 0.4 (1.0-1.7) Glucose (Fingerstick) 117mg/dL (70-99) Test 10/24/16 05:00 10/24/16 07:32 10/24/16 11:37 10/24/16 11:58 White Blood Count 6.9x10^3/uL (4.0-11.0) Red Blood Count 4.61x10^6/uL (4.30-5.70) Hemoglobin 13.2g/dL (13.0-17.5) Hematocrit 42.4% (39.0-53.0) Mean Corpuscular Volume 92fL (79-100) Mean Corpuscular Hemoglobin 29pg (25-35) Mean Corpuscular Hemoglobin Concent 31g/dL (31-37) Red Cell Distribution Width 18.4% (11.5-14.5) Platelet Count 70x10^3/uL (140-400) Neutrophils (%) (Auto) 87% (31-73) Lymphocytes (%) (Auto) 3% (24-48) Monocytes (%) (Auto) 9% (0-9) Eosinophils (%) (Auto) 0% (0-3) Basophils (%) (Auto) 0% (0-3) Neutrophils # (Auto) 6.0x10^3uL (1.8-7.7) Lymphocytes # (Auto) 0.2x10^3/uL (1.0-4.8) Monocytes # (Auto) 0.6x10^3/uL (0.0-1.1) Eosinophils # (Auto) 0.0x10^3/uL (0.0-0.7) Basophils # (Auto) 0.0x10^3/uL (0.0-0.2) Segmented Neutrophils % 73% (35-66) Band Neutrophils % 20% (0-9) Lymphocytes % 5% (24-48) Monocytes % 2% (0-10) Platelet Estimate Decreased (ADEQUATE) Poikilocytosis Present Target Cells Present Sodium Level 140mmol/L (136-145) Potassium Level 5.3mmol/L (3.5-5.1) Chloride Level 104mmol/L (98-107) Carbon Dioxide Level 23mmol/L (21-32) Anion Gap 13 (6-14) Blood Urea Nitrogen 66mg/dL (8-26) Creatinine 6.3mg/dL (0.7-1.3) Estimated GFR (Cockcroft-Gault) 11.1 Glucose Level 4mg/dL (70-99) Calcium Level 7.6mg/dL (8.5-10.1) Glucose (Fingerstick) 115mg/dL (70-99) 48mg/dL (70-99) 178mg/dL (70-99) Test 10/24/16 16:48 10/24/16 18:00 10/24/16 18:11 10/24/16 19:30 Glucose (Fingerstick) 45mg/dL (70-99) 39mg/dL (70-99) 136mg/dL (70-99) Glucose Level 145mg/dL (70-99) Ammonia 133mcmol/L (11-34) Test 10/24/16 21:08 10/25/16 01:10 10/25/16 01:16 10/25/16 01:42 Glucose (Fingerstick) 81mg/dL (70-99) 27mg/dL (70-99) 15mg/dL (70-99) 79mg/dL (70-99) Test 10/25/16 04:06 10/25/16 04:30 10/25/16 07:56 10/25/16 11:29 Glucose (Fingerstick) 87mg/dL (70-99) 24mg/dL (70-99) White Blood Count 6.8x10^3/uL (4.0-11.0) Red Blood Count 4.03x10^6/uL (4.30-5.70) Hemoglobin 11.6g/dL (13.0-17.5) Hematocrit 37.2% (39.0-53.0) Mean Corpuscular Volume 92fL (79-100) Mean Corpuscular Hemoglobin 29pg (25-35) Mean Corpuscular Hemoglobin Concent 31g/dL (31-37) Red Cell Distribution Width 18.2% (11.5-14.5) Platelet Count 34x10^3/uL (140-400) Neutrophils (%) (Auto) 90% (31-73) Lymphocytes (%) (Auto) 5% (24-48) Monocytes (%) (Auto) 5% (0-9) Eosinophils (%) (Auto) 0% (0-3) Basophils (%) (Auto) 0% (0-3) Neutrophils # (Auto) 6.1x10^3uL (1.8-7.7) Lymphocytes # (Auto) 0.3x10^3/uL (1.0-4.8) Monocytes # (Auto) 0.4x10^3/uL (0.0-1.1) Eosinophils # (Auto) 0.0x10^3/uL (0.0-0.7) Basophils # (Auto) 0.0x10^3/uL (0.0-0.2) Platelet Estimate Decreased (ADEQUATE) Large Platelets Present Poikilocytosis Present [place] Cells Few Schistocytes Few Sodium Level 133mmol/L (136-145) Potassium Level 6.8mmol/L (3.5-5.1) 5.6mmol/L (3.5-5.1) Chloride Level 100mmol/L (98-107) Carbon Dioxide Level 23mmol/L (21-32) Anion Gap 10 (6-14) Blood Urea Nitrogen 76mg/dL (8-26) Creatinine 6.3mg/dL (0.7-1.3) Estimated GFR (Cockcroft-Gault) 11.1 Glucose Level 88mg/dL (70-99) Calcium Level 6.8mg/dL (8.5-10.1) Creatine Kinase 144U/L (39-308) Test 10/25/16 11:40 10/25/16 12:02 Potassium Level 4.0mmol/L (3.5-5.1) Glucose Level 32mg/dL (70-99) Glucose (Fingerstick) 88mg/dL (70-99) Laboratory Tests Test 10/24/16 16:48 10/24/16 18:00 10/24/16 18:11 10/24/16 19:30 Glucose (Fingerstick) 45mg/dL (70-99) 39mg/dL (70-99) 136mg/dL (70-99) Glucose Level 145mg/dL (70-99) Ammonia 133mcmol/L (11-34) Test 10/24/16 21:08 10/25/16 01:10 10/25/16 01:16 10/25/16 01:42 Glucose (Fingerstick) 81mg/dL (70-99) 27mg/dL (70-99) 15mg/dL (70-99) 79mg/dL (70-99) Test 10/25/16 04:06 10/25/16 04:30 10/25/16 07:56 10/25/16 11:29 Glucose (Fingerstick) 87mg/dL (70-99) 24mg/dL (70-99) White Blood Count 6.8x10^3/uL (4.0-11.0) Red Blood Count 4.03x10^6/uL (4.30-5.70) Hemoglobin 11.6g/dL (13.0-17.5) Hematocrit 37.2% (39.0-53.0) Mean Corpuscular Volume 92fL (79-100) Mean Corpuscular Hemoglobin 29pg (25-35) Mean Corpuscular Hemoglobin Concent 31g/dL (31-37) Red Cell Distribution Width 18.2% (11.5-14.5) Platelet Count 34x10^3/uL (140-400) Neutrophils (%) (Auto) 90% (31-73) Lymphocytes (%) (Auto) 5% (24-48) Monocytes (%) (Auto) 5% (0-9) Eosinophils (%) (Auto) 0% (0-3) Basophils (%) (Auto) 0% (0-3) Neutrophils # (Auto) 6.1x10^3uL (1.8-7.7) Lymphocytes # (Auto) 0.3x10^3/uL (1.0-4.8) Monocytes # (Auto) 0.4x10^3/uL (0.0-1.1) Eosinophils # (Auto) 0.0x10^3/uL (0.0-0.7) Basophils # (Auto) 0.0x10^3/uL (0.0-0.2) Platelet Estimate Decreased (ADEQUATE) Large Platelets Present Poikilocytosis Present [place] Cells Few Schistocytes Few Sodium Level 133mmol/L (136-145) Potassium Level 6.8mmol/L (3.5-5.1) 5.6mmol/L (3.5-5.1) Chloride Level 100mmol/L (98-107) Carbon Dioxide Level 23mmol/L (21-32) Anion Gap 10 (6-14) Blood Urea Nitrogen 76mg/dL (8-26) Creatinine 6.3mg/dL (0.7-1.3) Estimated GFR (Cockcroft-Gault) 11.1 Glucose Level 88mg/dL (70-99) Calcium Level 6.8mg/dL (8.5-10.1) Creatine Kinase 144U/L (39-308) Test 4/30/17 11:40 10/25/16 12:02 Potassium Level 4.0mmol/L (3.5-5.1) Glucose Level 32mg/dL (70-99) Glucose (Fingerstick) 88mg/dL (70-99) Microbiology 10/23/16 Blood Culture - Preliminary, Resulted 10/23/16 Blood Culture Result 1 (JAMES) - Preliminary, Resulted Medications Current Medications Sodium Chloride 500 ml @ 250 mls/hr 1X ONCE IV Last administered on 16:24; Start 10/23/16 at 16:15; Stop 10/23/16 at 18:14; Status DC Sodium Chloride (Iv Sodium Chloride 0.9% 500ml Bag) 500 ml @ 250 mls/hr 1X ONCE IV Last administered on 10/23/16 17:15; Start 10/23/16 at 17:15; Stop at 19:14; Status DC Diltiazem HCl 5 mg 5 mg 1X ONCE IVP Last administered on 10/23/16 19:12; Start 10/23/16 at 18:45; Stop 10/23/16 at 18:49; Status DC Diltiazem HCl/ Dextrose (Cardizem) 125 ml @ 0 mls/hr 1X ONCE IV ; Start at 18:45; Stop 10/23/16 at 19:59; Status DC Digoxin (Lanoxin) 250 mcg 1X ONCE IV Last administered on 10/23/16 22:36; Start 10/23/16 at 20:00; Stop 10/23/16 at 20:01; Status DC Ondansetron HCl (Zofran) 4 mg PRN Q8HRS PRN IV NAUSEA/VOMITING; Start 10/23/16 at 20:15; Stop 10/23/16 at 22:04; Status DC Acetaminophen (Tylenol) 650 mg PRN Q4HRS PRN PO FEVER; Start 10/23/16 at 20:15 ; Stop 10/23/16 at 22:04; Status DC Acetaminophen (Tylenol) 325 mg PRN Q6HRS PRN PO MILD PAIN / TEMP; Start at 22:00; Stop 10/25/16 at 11:09; Status DC Acetaminophen/ Hydrocodone Bitart (Lortab 5/325) 1 tab PRN Q6HRS PRN PO MODERATE TO SEVERE PAIN; Start 10/23/16 at 22:00 Hydralazine HCl (Apresoline) 10 mg PRN Q4HRS PRN IVP ELEVATED BP, SEE COMMENTS ; Start 10/23/16 at 22:00 Ondansetron HCl (Zofran) 4 mg PRN Q8HRS PRN IV NAUSEA/VOMITING; Start 10/23/16 at 22:00 Albuterol Sulfate 2.5 mg 2.5 mg PRN Q4HRS PRN NEB SHORTNESS OF BREATH; Start at 22:00 Sodium Chloride (Iv Sodium Chloride 0.9% 500ml Bag) 500 ml @ 500 mls/hr 1X ONCE IV Last administered on 10/23/16 22:34; Start 10/23/16 at 22:30; Stop at 23:29; Status DC Pneumococcal Polyvalent Vaccine (Do NOT chart on this placeholder) 1 each PRN DAILY PRN [facility] UNABLE TO RESPOND; Start 10/24/16 at 00:15; Status Cancel Dextrose (Dextrose 50%-Water Syringe) 12.5 gm PRN Q15MIN PRN IV SEE COMMENTS Last administered on 10/25/16 11:35; Start 10/24/16 at 01:15 Dextrose (Dextrose 50%-Water Syringe) 25 gm STK-MED ONCE IV ; Start 10/24/16 at 01:05; Stop 10/24/16 at 01:06; Status DC Metoprolol Tartrate (Lopressor) 12.5 mg BID PO Last administered on 10/24/16 13:51; Start 10/24/16 at 09:30 Acetaminophen (Tylenol) 650 mg PRN Q4HRS PRN PO PAIN; Start 10/24/16 at 10:45 Allopurinol (Zyloprim) 100 mg DAILY PO Last administered on 10/24/16 13:51; Start 10/24/16 at 11:00 Atorvastatin Calcium (Lipitor) 10 mg DAILY PO Last administered on 10/24/16 13 :52; Start 10/24/16 at 11:00; Stop 10/25/16 at 14:11; Status DC Calcium Acetate (Phoslo) 1,334 mg TIDWMEALS PO Last administered on 10/25/16 12:55; Start 10/24/16 at 12:00 Diphenhydramine HCl (Benadryl) 25 mg PRN Q4HRS PRN PO ITCHING; Start 10/24/16 at 10:45 Famotidine (Pepcid) 20 mg DAILY PO Last administered on 10/25/16 12:46; Start 10/24/16 at 11:00 Fentanyl (Duragesic 50mcg/ Hr Patch) 1 patch Q72H TD Last administered on 13:54; Start 10/24/16 at 11:00 Ferrous Sulfate (Feosol) 325 mg DAILY PO Last administered on 10/24/16 13:55; Start 10/24/16 at 11:00 Folic Acid (Folic Acid) 1 mg DAILY PO Last administered on 10/25/16 12:54; Start 10/24/16 at 11:00 Levothyroxine Sodium (Synthroid) 75 mcg DAILYAC PO Last administered on 12:45; Start 10/25/16 at 07:30 Midodrine (Proamatine) 2.5 mg PRN TID PRN PO BLOOD PRESSURE; Start 10/24/16 at 10:45 Midodrine (Proamatine) 5 mg [id number] PO Last administered on 10/25/16 12:55; Start 10/24/16 at 14:00 Sodium Bicarbonate (Sodium Bicarbonate) 650 mg BID PO Last administered on 10/25 12:56; Start 10/24/16 at 11:00 Calcium/Vitamin D (Oscal D 500mg/ 200uts) 1 tab TID PO Last administered on 22:18; Start 10/24/16 at 14:00 Non-Formulary Medication 500 mg QID PO ; Start 10/24/16 at 13:00; Stop 10/24/16 at 13:00; Status DC Glucagon (Glucagen) 1 mg 1X PRN IM HYPOGLYCEMIA; Start 10/24/16 at 11:00 Insulin Aspart (Novolog) 3 units TIDAC SQ ; Start 10/24/16 at 11:30; Stop at 11:36; Status DC Lactobacillus Acidophilus (Bacid, Lou-Bid) 2 tab DAILY PO Last administered on 10/24/16 13:52; Start 10/24/16 at 11:00 Oxycodone HCl (Roxicodone) 5 mg PRN Q4HRS PRN PO PAIN Last administered on 10/25 12:47; Start 10/24/16 at 11:15 Potassium Chloride (Klor-Con) 10 meq [id number] PO Last administered on 13:51; Start 10/24/16 at 11:00 Vancomycin HCl 125 mg Q6HRS PO Last administered on 10/25/16 12:45; Start at 12:00 Piperacillin Sod/ Tazobactam Sod 1 each 1 each PRN DAILY PRN [facility] SEE COMMENTS; Start 10/24/16 at 10:45 Vancomycin HCl 1.5 gm/Sodium Chloride 500 ml @ 250 mls/hr 1X ONCE IV ; Start 10/24/16 at 11:15; Stop 10/24/16 at 11:15; Status DC Piperacillin Sod/ Tazobactam Sod/ Sodium Chloride (Zosyn/Iv Sodium Chloride 0.9 % 50ml) 50 ml @ 100 mls/hr Q6HRS IV Last administered on 10/25/16 12:56; Start 10/24/16 at 12:00 Insulin Aspart (Novolog) 3 units TIDAC SQ ; Start 10/24/16 at 11:35 Heparin Sodium (Porcine) 5000 unit 5,000 unit Q8HRS SQ Last administered on 06:09; Start 10/24/16 at 22:00; Stop 10/25/16 at 14:04; Status DC Amino Acids/ Glycerin/ Electrolytes (Procalamine) 1,000 ml @ 40 mls/hr Q24H IV Last administered on 10/24/16 18:20; Start 10/24/16 at 17:15 Dextrose (Dextrose 50%-Water Syringe) 25 gm PRN Q1HR PRN IV SEE COMMENTS Last administered on 10/25/16 01:43; Start 10/24/16 at 17:15 Glucose (Insta-Glucose) 15 gm STK-MED ONCE .ROUTE ; Start 10/24/16 at 17:44; Stop 10/24/16 at 17:45; Status DC Glucose (Insta-Glucose) 15 gm PRN Q15MIN PRN PO LOW BLOOD SUGAR Last administered on 10/24/16 17:50; Start 10/24/16 at 18:00 Sodium Polystyrene Sulfonate 15 gm 15 gm 1X ONCE PO ; Start 10/25/16 at 07:00; Stop 10/25/16 at 07:01; Status DC Magnesium Sulfate/ Dextrose (Magnesium Sulfate PREMIX 2GM) 50 ml @ 25 mls/hr PRN DAILY PRN IV for Mag < 1.7 on am labs; Start 10/25/16 at 07:30 Calcium Gluconate 1000 mg 1,000 mg Q2H IVP Last administered on 10/25/16 14:41 ; Start 10/25/16 at 07:30; Stop 10/25/16 at 11:31; Status DC Albumin Human 100 ml @ 100 mls/hr 1X ONCE IV Last administered on 10/25/16 08:32; Start 10/25/16 at 08:30; Stop 10/25/16 at 09:29; Status DC Albumin Human (Albuminar) 50 ml @ 50 mls/hr 1X ONCE IV Last administered on 08:30; Start 10/25/16 at 08:30; Stop 10/25/16 at 09:29; Status DC Info (PHARMACY MONITORING -- do not chart) 1 each PRN DAILY PRN [facility] SEE COMMENTS ; Start 10/25/16 at 08:45 Info 1 each 1 each PRN DAILY PRN MC SEE COMMENTS; Start 10/25/16 at 08:45 Sodium Chloride 1,000 ml @ 1,000 mls/hr Q1H PRN IV hypotension; Start 10/25/16 at 08:54; Stop 10/25/16 at 14:53; Status DC Albumin Human (Albuminar) 200 ml @ 200 mls/hr 1X PRN PRN IV Hypotension Last administered on 10/25/16 09:08; Start 10/25/16 at 09:00; Stop 10/25/16 at 14:59 ; Status DC Sodium Chloride (Normal Saline Flush) 10 ml 1X PRN PRN IV AP catheter pack; Start 10/25/16 at 09:00; Stop 10/26/16 at 08:59 Sodium Chloride (Normal Saline Flush) 10 ml 1X PRN PRN IV AUDIT OFFICER catheter pack; Start 10/25/16 at 09:00; Stop 10/26/16 at 08:59 Info (PHARMACY MONITORING -- do not chart) 1 each PRN DAILY PRN MC SEE COMMENTS ; Start 10/25/16 at 09:00 Info (PHARMACY MONITORING -- do not chart) 1 each PRN DAILY PRN MC SEE COMMENTS ; Start 10/25/16 at 09:00 Atorvastatin Calcium (Lipitor) 10 mg QHS PO ; Start 10/26/16 at 21:00 Active Scripts Active Midodrine Hcl 2.5 Mg Tablet 2.5 Mg PO PRN TID PRN Reported Gluco Burst (Dextrose) 37.5 Gm Gel..gram. 37.5 Gm PO PRN Glucagon Emergency Kit (Glucagon,Human Recombinant) 1 Mg Kit 1 Mg IM PRN Ferrous Sulfate 325 Mg Tablet 1 Tab PO DAILY DURAGESIC 50mcg/hr (Fentanyl) 1 Each Patch.td72 1 Patch TD Q72H Benadryl (Diphenhydramine Hcl) 25 Mg Capsule 25 Mg PO PRN Q4HRS PRN Midodrine Hcl 5 Mg Tablet 5 Mg PO BID Sodium Bicarbonate 650 Mg Tablet 650 Mg PO BID Potassium Chloride 10 Meq Tablet.er 10 Meq PO DAILY Keflex (Cephalexin) 500 Mg Capsule 500 Mg PO QID Humalog Kwikpen (Insulin Lispro) 200 Unit/1 Ml Insuln.pen 3 Unit SQ TIDAC Famotidine 20 Mg Tablet 20 Mg PO DAILY Oxycodone Hcl 15 Mg Tablet 1 Tab PO PRN Q4HRS PRN Phoslo (Calcium Acetate) 667 Mg Capsule 2 Cap PO TIDWMEALS Allopurinol 100 Mg Tablet 1 Tab PO DAILY Oyster Shell Calcium-Vit D Tab (Calcium Carbonate/Vitamin D2) 1 Each Tablet 1 Each PO TID Acidophilus Lactobacillus (Lactobacillus Acidophilus) 1 Each Capsule 1 Each PO DAILY Acetaminophen 325 Mg Tablet 650 Mg PO PRN Q4HRS PRN Atorvastatin Calcium 10 Mg Tablet 1 Tab PO DAILY Folic Acid 1 Mg Tablet 1 Mg PO DAILY Levothyroxine Sodium 25 Mcg Tablet 75 Mcg PO DAILYAC Vitals/I & O Vital Sign - Last 24 Hours 10/24/16 10/24/16 10/24/16 10/24/16 17:51 19:00 20:00 21:00 Temp 98.1 98.1 Pulse 78 76 Resp 16 2 B/P 96/66 96/66 Pulse Ox 99 92 O2 Delivery Room Air Nasal Cannula Nasal Cannula O2 Flow Rate 2.0 2.0 10/24/16 10/25/16 10/25/16 10/25/16 23:33 03:00 07:12 12:47 Temp 98.2 97.4 97.5 98.2 97.4 97.5 Pulse 74 80 86 Resp 18 18 20 16 B/P 93/63 89/60 110/74 Pulse Ox 93 95 96 96 O2 Delivery Nasal Cannula Nasal Cannula Nasal Cannula Nasal Cannula O2 Flow Rate 2.0 2.0 2.0 2.0 10/25/16 10/25/16 10/25/16 12:55 13:47 15:02 Temp 96.8 96.8 Pulse 123 Resp 20 B/P 123/86 100/70 Pulse Ox 97 O2 Delivery Nasal Cannula Nasal Cannula O2 Flow Rate 2.0 2.0 Intake and Output 10/24/16 10/24/16 10/25/16 15:00 23:00 07:00 Intake Total 50 ml 510 ml Output Total 0 ml Balance 50 ml 510 ml 0 ml LINDA ABRAHAM III DO Oct 25, 2016 15:19
[2016-10-25] MEDS: AMINO AC 3%/ELECTROLYTE/GLYCER 1,000 ML IV SCH (17:15)
[2016-10-25 19:30] VITALS: BP 132/89
[2016-10-25] MEDS ORDERED: DEXTROSE 50% 25 GM / 50ML DISP.SYRIN. IV ONE (22:15)
[2016-10-25 23:10] VITALS: BP 129/99
[2016-10-26] VITALS (17 sets, daily range): BP systolic 99–124; BP diastolic 80–98
[2016-10-26] MEDS: PIPERACILLIN/TAZOBACTAM 2.25 GM in IV NORMAL SALINE 50ML 50 ML IV SCH ×3 (00:20→12:39)
[2016-10-26] MEDS: VANCOMYCIN 125 MG/2.5 ML ORAL SOLUTION. PO SCH ×3 (00:20→21:19)
[2016-10-26] MEDS: DEXTROSE 50% 25 GM / 50ML DISP.SYRIN. IV PRN ×2 (01:30→08:54)
[2016-10-26] MEDS: AMINO AC 3%/ELECTROLYTE/GLYCER 1,000 ML IV SCH (04:09)
[2016-10-26 06:47] LABS: BASO % 0 % (0-3); EOS % 1 % (0-3); HEMATOCRIT 36.5 % (39.0-53.0); HEMOGLOBIN 11.6 g/dL (13.0-17.5); LYMPH # 0.5 x10^3/uL (1.0-4.8); LYMPH % 6 % (24-48); MEAN CORPUSCULAR HEMOGLOBIN 29 pg (25-35); MEAN CORPUSCULAR HGB CONC 32 g/dL (31-37); MEAN CORPUSCULAR VOLUME 90 fL (79-100); MONO % 6 % (0-9); NEUT % 87 % (31-73); RED BLOOD COUNT 4.05 x10^6/uL (4.30-5.70); WHITE BLOOD COUNT 8.4 x10^3/uL (4.0-11.0)
[2016-10-26 06:51] LABS: CALCIUM 7.4 mg/dL (8.5-10.1); CREATININE 4.5 mg/dL (0.7-1.3); GFR 16.4; PHOSPHORUS 4.9 mg/dL (2.6-4.7); POTASSIUM 5.1 mmol/L (3.5-5.1)
[2016-10-26 07:00] LABS: PLATELET COUNT 19 x10^3/uL (140-400)
[2016-10-26] MEDS: POTASSIUM CHLORIDE 10 MEQ TABLET.ER. PO SCH (08:00)
[2016-10-26] MEDS: CALCIUM ACETATE 667 MG CAPSULE PO SCH ×3 (08:00→16:50)
[2016-10-26] MEDS: LEVOTHYROXINE 25 MCG TABLET. PO SCH (08:39)
[2016-10-26] MEDS: METOPROLOL TART IMMED RELEASE 25 MG TABLET. PO SCH (08:45)
[2016-10-26] MEDS: CALCIUM CARB/VIT D3 500/200 TABLET. PO SCH ×4 (08:45→21:28)
[2016-10-26] MEDS: FOLIC ACID 1 MG TABLET. PO SCH (08:45)
[2016-10-26] MEDS: FERROUS SULFATE 325 MG TABLET. PO SCH (08:45)
[2016-10-26] MEDS: LACTOBACILLUS ACIDOPH & BULGAR 1 TABLET. PO SCH (08:45)
[2016-10-26] MEDS: ALLOPURINOL 100 MG TABLET. PO SCH (08:46)
[2016-10-26] MEDS: FAMOTIDINE 20 MG TABLET. PO SCH (08:46)
[2016-10-26] MEDS: MIDODRINE 5 MG TABLET PO SCH ×2 (08:46→13:11)
[2016-10-26] MEDS: SODIUM BICARBONATE 650 MG TABLET. PO SCH ×3 (08:46→21:28)
--- NOTE | 2016-10-26 08:51 | PDOC ---
Infectious Disease Note Subjective Subjective hypoglycemia, in icu now, no complaints, awake ROS ROS no n/v/d/pain Vital Sign Vital Signs Vital Signs Date Time Temp Pulse Resp B/P Pulse Ox O2 Delivery O2 Flow Rate FiO2 10/26/16 08:00 Nasal Cannula 2.0 10/26/16 08:00 94.2 69 9 124/98 99 94.2 Physical Exam PHYSICAL EXAM GENERAL: NAD, Alert HEENT: PERRL, OC/OP NECK: Supple, no JVD, no LN LUNGS: Clear HEART: S1S2, no gallop, no murmur ABD: Soft, distended, fluid + EXT: No edema, no cyanosis WEED CUTTER: Alert, oriented x 3, no focal neurologic deficit SKIN: No rash IV: ok Labs Lab Laboratory Tests Test 10/25/16 09:00 10/25/16 11:29 10/25/16 11:40 10/25/16 12:02 Cortisol AM Sample 36.1ug/dL (6.2-19.4) Glucose (Fingerstick) 24mg/dL (70-99) 88mg/dL (70-99) Potassium Level 4.0mmol/L (3.5-5.1) Glucose Level 32mg/dL (70-99) Test 10/25/16 16:40 10/25/16 16:46 10/25/16 17:08 10/25/16 20:45 Glucose (Fingerstick) 19mg/dL (70-99) 107mg/dL (70-99) 40mg/dL (70-99) Glucose Level 36mg/dL (70-99) Test 10/25/16 21:10 10/25/16 21:39 10/25/16 22:35 10/26/16 01:30 Glucose Level 45mg/dL (70-99) Glucose (Fingerstick) 72mg/dL (70-99) 170mg/dL (70-99) 66mg/dL (70-99) Test 10/26/16 02:06 10/26/16 04:06 10/26/16 06:10 10/26/16 06:15 Glucose (Fingerstick) 143mg/dL (70-99) 75mg/dL (70-99) 37mg/dL (70-99) White Blood Count 8.4x10^3/uL (4.0-11.0) Red Blood Count 4.05x10^6/uL (4.30-5.70) Hemoglobin 11.6g/dL (13.0-17.5) Hematocrit 36.5% (39.0-53.0) Mean Corpuscular Volume 90fL (79-100) Mean Corpuscular Hemoglobin 29pg (25-35) Mean Corpuscular Hemoglobin Concent 32g/dL (31-37) Red Cell Distribution Width 18.0% (11.5-14.5) Platelet Count 19x10^3/uL (140-400) Neutrophils (%) (Auto) 87% (31-73) Lymphocytes (%) (Auto) 6% (24-48) Monocytes (%) (Auto) 6% (0-9) Eosinophils (%) (Auto) 1% (0-3) Basophils (%) (Auto) 0% (0-3) Neutrophils # (Auto) 7.3x10^3uL (1.8-7.7) Lymphocytes # (Auto) 0.5x10^3/uL (1.0-4.8) Monocytes # (Auto) 0.5x10^3/uL (0.0-1.1) Eosinophils # (Auto) 0.0x10^3/uL (0.0-0.7) Basophils # (Auto) 0.0x10^3/uL (0.0-0.2) Sodium Level 136mmol/L (136-145) Potassium Level 5.1mmol/L (3.5-5.1) Chloride Level 100mmol/L (98-107) Carbon Dioxide Level 30mmol/L (21-32) Anion Gap 6 (6-14) Blood Urea Nitrogen 55mg/dL (8-26) Creatinine 4.5mg/dL (0.7-1.3) Estimated GFR (Cockcroft-Gault) 16.4 Glucose Level 43mg/dL (70-99) Calcium Level 7.4mg/dL (8.5-10.1) Phosphorus Level 4.9mg/dL (2.6-4.7) Magnesium Level 1.7mg/dL (1.8-2.4) Albumin 2.0g/dL (3.4-5.0) Test 10/26/16 06:43 10/26/16 08:38 Glucose (Fingerstick) 126mg/dL (70-99) 65mg/dL (70-99) Objective Assessment Gram variable rods sepsis POA. GNR Bandemia H/o recent c. diff CKD on HD Cirrhosis of liver w/ refractory ascites DM with hypoglycemia Debility SVT Thrombocytopenia Plan Plan of Care Zosyn Po vancomycin BID for prophylaxis Await ID gram variable rods/GNR Monitor labs Supportive care d/w dr Christie CLIFTON,CARMINE Kennedy MD October 26, 2016 08:51
--- NOTE | 2016-10-26 11:08 | PDOC ---
SUBJECTIVE ROS ESRD now moved to ICU due to presistent Hypoglycemia on the floor CVS: no Orthopnea, no CP RESP: no SOB, no VALENTIN GI: no Nausea, no Vomiting; no diarrhea reported : no Dysuria, no Urgency OBJECTIVE Vital Signs Vital Signs Date Time Temp Pulse Resp B/P Pulse Ox O2 Delivery O2 Flow Rate FiO2 10/26/16 10:00 94.3 68 14 120/91 96 Nasal Cannula 2.0 94.3 I & 0 Intake and Output 10/26/16 07:00 Intake Total 455 ml Output Total 0 ml Balance 455 ml Intake Oral 30 ml IV Total 425 ml Output Urine Total 0 ml # Bowel Movements 1 PHYSICAL EXAM Physical Exam GEN: Awake, Oriented x ? (does not answer) , In no distress EYES: Vision Unchanged, Conjunctiva Normal EN: No EN Drainage, Mucous Membranes dry NECK: + JVD, + JVP, Supple, no Thyromegaly CVS: S1S2, + Murmur, No Gallop, No Rub,+2-3 Edema RESP: no Rales, no Rhonchi,no Acc. Muscle Use GI: BS + ve, NO Bruit, Non Tender, ++ Distended : no CVA tenderness, no Suprapubic Tenderness DIAGNOSIS/ASSESSMENT Assessment & Plan ESRD: Current fluid and E-lyte status does not necessitate emergent need for dialysis. Will re-evaluate for dialysis in the am and continue on TTSat schedule. Hypoglycemia - change to D10 for now, check Cortisol stat, ? Due to Liver failure ANEMIA; no Aranap ordered for now as hgb > 11; Transfuse with next HD as needed if hgb drops HypoTN: has been a chronic issue, suspect asso with liver failure. may need pressors Palliative care and withdrawal of HD would be appropriate at this juncture Problems: COMMENT/RELEVANT DATA Meds Current Medications Medications (Trade) Dose Ordered Sig/Madi Start Time Stop Time Status Last Admin Dose Admin Acetaminophen (Tylenol) 650 mg PRN Q4HRS PRN 10/24/16 10:45 Acetaminophen/ Hydrocodone Bitart (Lortab 5/325) 1 tab PRN Q6HRS PRN 10/23/16 22:00 Albumin Human (Albuminar) 200 ml @ 200 mls/hr 1X PRN PRN 10/25/16 09:00 10/25/16 14:59 DC 10/25/16 09:08 200 MLS/HR Albuterol Sulfate 2.5 mg 2.5 mg PRN Q4HRS PRN 10/23/16 22:00 Allopurinol (Zyloprim) 100 mg DAILY 10/24/16 11:00 10/24/16 13:51 100 MG Amino Acids/ Glycerin/ Electrolytes (Procalamine) 1,000 ml @ 40 mls/hr Q24H 10/24/16 17:15 10/26/16 04:09 40 MLS/HR Atorvastatin Calcium (Lipitor) 10 mg QHS 10/26/16 21:00 Calcium Acetate (Phoslo) 1,334 mg TIDWMEALS 10/24/16 12:00 10/25/16 12:55 1,334 MG Calcium Gluconate (Calcium Gluconate) 1,000 mg Q2H 10/25/16 07:30 10/25/16 11:31 DC 10/25/16 17:11 1,000 MG Calcium/Vitamin D (Oscal D 500mg/ 200uts) 1 tab TID 10/24/16 14:00 10/25/16 21:07 1 TAB Dextrose (Dextrose 50%-Water Syringe) 25 gm 1X ONCE 10/25/16 22:15 10/25/16 22:16 DC 10/25/16 22:00 25 GM Digoxin (Lanoxin) 250 mcg 1X ONCE 10/23/16 20:00 10/23/16 20:01 DC 10/23/16 22:36 250 MCG Diltiazem HCl 5 mg 5 mg 1X ONCE 10/23/16 18:45 10/23/16 18:49 DC 10/23/16 19:12 5 MG Diltiazem HCl/ Dextrose (Cardizem) 125 ml @ 0 mls/hr 1X ONCE 10/23/16 18:45 10/23/16 19:59 DC Diphenhydramine HCl (Benadryl) 25 mg PRN Q4HRS PRN 10/24/16 10:45 Famotidine (Pepcid) 20 mg DAILY 10/24/16 11:00 10/25/16 12:46 20 MG Fentanyl (Duragesic 50mcg/ Hr Patch) 1 patch Q72H 10/24/16 11:00 10/24/16 13:54 1 PATCH Ferrous Sulfate (Feosol) 325 mg DAILY 10/24/16 11:00 10/24/16 13:55 325 MG Folic Acid (Folic Acid) 1 mg DAILY 10/24/16 11:00 10/25/16 12:54 1 MG Glucagon (Glucagen) 1 mg 1X PRN 10/24/16 11:00 Glucose (Insta-Glucose) 15 gm PRN Q15MIN PRN 10/24/16 18:00 10/24/16 17:50 15 GM Heparin Sodium (Porcine) 5000 unit 5,000 unit Q8HRS 10/24/16 22:00 10/25/16 14:04 DC 10/25/16 06:09 5,000 UNIT Hydralazine HCl (Apresoline) 10 mg PRN Q4HRS PRN 10/23/16 22:00 Info (PHARMACY MONITORING -- do not chart) 1 each PRN DAILY PRN 10/25/16 09:00 Info 1 each 1 each PRN DAILY PRN 10/25/16 08:45 Insulin Aspart (Novolog) 3 units TIDAC 10/24/16 11:35 10/26/16 07:44 DC Lactobacillus Acidophilus (Bacid, Lou-Bid) 2 tab DAILY 10/24/16 11:00 10/24/16 13:52 2 TAB Levothyroxine Sodium (Synthroid) 75 mcg DAILYAC 10/25/16 07:30 10/26/16 08:39 75 MCG Magnesium Sulfate/ Dextrose (Magnesium Sulfate PREMIX 2GM) 50 ml @ 25 mls/hr PRN DAILY PRN 10/25/16 07:30 Metoprolol Tartrate (Lopressor) 12.5 mg BID 10/24/16 09:30 10/25/16 21:06 12.5 MG Midodrine (Proamatine) 5 mg [id number] 10/24/16 14:00 10/25/16 12:55 5 MG Non-Formulary Medication 500 mg QID 10/24/16 13:00 10/24/16 13:00 DC Ondansetron HCl (Zofran) 4 mg PRN Q8HRS PRN 10/23/16 22:00 Oxycodone HCl (Roxicodone) 5 mg PRN Q4HRS PRN 10/24/16 11:15 10/25/16 21:07 5 MG Piperacillin Sod/ Tazobactam Sod 1 each 1 each PRN DAILY PRN 10/24/16 10:45 Piperacillin Sod/ Tazobactam Sod/ Sodium Chloride (Zosyn/Iv Sodium Chloride 0.9% 50ml) 50 ml @ 100 mls/hr Q6HRS 10/24/16 12:00 10/26/16 06:14 100 MLS/HR Pneumococcal Polyvalent Vaccine (Do NOT chart on this placeholder) 1 each PRN DAILY PRN 10/24/16 00:15 Cancel Potassium Chloride (Klor-Con) 10 meq [id number] 10/24/16 11:00 10/24/16 13:51 10 MEQ Sodium Polystyrene Sulfonate 15 gm 15 gm 1X ONCE 10/25/16 07:00 10/25/16 07:01 DC Sodium Bicarbonate (Sodium Bicarbonate) 650 mg BID 10/24/16 11:00 10/25/16 21:06 650 MG Sodium Chloride (Iv Sodium Chloride 0.9% 500ml Bag) 500 ml @ 500 mls/hr 1X ONCE 10/23/16 22:30 10/23/16 23:29 DC 10/23/16 22:34 500 MLS/HR Sodium Chloride (Normal Saline Flush) 10 ml 1X PRN PRN 10/25/16 09:00 10/26/16 08:59 DC Vancomycin HCl 1.5 gm/Sodium Chloride 500 ml @ 250 mls/hr 1X ONCE 10/24/16 11:15 10/24/16 11:15 DC Lab Laboratory Tests Test 10/25/16 11:29 10/25/16 11:40 10/25/16 12:02 10/25/16 16:40 Glucose (Fingerstick) 24mg/dL (70-99) 88mg/dL (70-99) 19mg/dL (70-99) Potassium Level 4.0mmol/L (3.5-5.1) Glucose Level 32mg/dL (70-99) Test 10/25/16 16:46 10/25/16 17:08 10/25/16 20:45 10/25/16 21:10 Glucose Level 36mg/dL (70-99) 45mg/dL (70-99) Glucose (Fingerstick) 107mg/dL (70-99) 40mg/dL (70-99) Test 10/25/16 21:39 10/25/16 22:35 10/26/16 01:30 10/26/16 02:06 Glucose (Fingerstick) 72mg/dL (70-99) 170mg/dL (70-99) 66mg/dL (70-99) 143mg/dL (70-99) Test 10/26/16 04:06 10/26/16 06:10 10/26/16 06:15 10/26/16 06:43 Glucose (Fingerstick) 75mg/dL (70-99) 37mg/dL (70-99) 126mg/dL (70-99) White Blood Count 8.4x10^3/uL (4.0-11.0) Red Blood Count 4.05x10^6/uL (4.30-5.70) Hemoglobin 11.6g/dL (13.0-17.5) Hematocrit 36.5% (39.0-53.0) Mean Corpuscular Volume 90fL (79-100) Mean Corpuscular Hemoglobin 29pg (25-35) Mean Corpuscular Hemoglobin Concent 32g/dL (31-37) Red Cell Distribution Width 18.0% (11.5-14.5) Platelet Count 19x10^3/uL (140-400) Neutrophils (%) (Auto) 87% (31-73) Lymphocytes (%) (Auto) 6% (24-48) Monocytes (%) (Auto) 6% (0-9) Eosinophils (%) (Auto) 1% (0-3) Basophils (%) (Auto) 0% (0-3) Neutrophils # (Auto) 7.3x10^3uL (1.8-7.7) Lymphocytes # (Auto) 0.5x10^3/uL (1.0-4.8) Monocytes # (Auto) 0.5x10^3/uL (0.0-1.1) Eosinophils # (Auto) 0.0x10^3/uL (0.0-0.7) Basophils # (Auto) 0.0x10^3/uL (0.0-0.2) Sodium Level 136mmol/L (136-145) Potassium Level 5.1mmol/L (3.5-5.1) Chloride Level 100mmol/L (98-107) Carbon Dioxide Level 30mmol/L (21-32) Anion Gap 6 (6-14) Blood Urea Nitrogen 55mg/dL (8-26) Creatinine 4.5mg/dL (0.7-1.3) Estimated GFR (Cockcroft-Gault) 16.4 Glucose Level 43mg/dL (70-99) Calcium Level 7.4mg/dL (8.5-10.1) Phosphorus Level 4.9mg/dL (2.6-4.7) Magnesium Level 1.7mg/dL (1.8-2.4) Albumin 2.0g/dL (3.4-5.0) Test 10/26/16 08:38 10/26/16 09:51 Glucose (Fingerstick) 65mg/dL (70-99) 133mg/dL (70-99) CELINA CLIFTON MD October 26, 2016 11:08
--- NOTE | 2016-10-26 11:18 | PDOC2 ---
PALLIATIVE CARE Palliative Care Note Palliative Care Consult requested by Dr. Thomas to address goals of care. Diagnosis: ESRD; ESLD; HF; P/C Malnutrition; DM HTN: Patient was transfered from dialysis to [facility] after having chest discomfort, tachycardia and hypotension; SVT Patient is a resident of [facility] Patient opens eyes--mumbles few words. Not able to follow commands. Spoke with patient's sister--Blanca Ardon. Plan meeting at 1400 to discuss goals of care NESTOR ALANIZ October 26, 2016 11:18
[2016-10-26] MEDS: IV DEXTROSE 10% 1,000 ML IV SCH (11:29)
--- NOTE | 2016-10-26 12:29 | PDOC ---
PROGRESS NOTES Chief Complaint Chief Complaint cc: ? syncopal episode, SVT, ESRD, chronic hypotension ESRD, on HD anemia of chronic disease chronic diastolic heart failure DM type II GERD hyperlipidemia hypertension, hypothyroidism hepatitis cirrhosis with chronic ascites gout cardiomyopathy prior C. diff. plan: ICU care PAT consult again, pt and family always refuse hospice in the past, still [facility], but transferred here every month for same reason: hypotension and hypoglycemia dont know why pt still on metoprolol and aspart give hypoglycemia and hypotension. dc both on d10 now cont HD as per renal should be on hospice. History of Present Illness History of Present Illness cont hypoglycemia daily, low po intake transferred to ICU on 10/26 for hypoglycemia hypotension from time to time too, with baseline low BP with cirrhosis tho + bacteremia + ascietis with cirrhosis HD Vitals Vitals Vital Signs Date Time Temp Pulse Resp B/P Pulse Ox O2 Delivery O2 Flow Rate FiO2 10/26/16 11:00 75 15 107/87 98 Nasal Cannula 2.0 10/26/16 10:00 94.3 94.3 Physical Exam General: Alert (responds to voice. unable to follow all commands. ), Cooperative, No acute distress, Other (emiaciated. temporal wasting ) Heart: Normal S1, Other (tachycardia, on midorinine gtt. ) Lungs: Clear, Other (diminished inspiratory effort. negative chest retractions and/or accessory muscle use. ) Abdomen: Soft, No tenderness, Other (chronic ascites. negative peritoneal signs. ) Extremities: No cyanosis, Other (+2 pitting edema bilaterally. peripheral pulses 2/4 bilaterally. ) Skin: Other (Left ankle ulcer. Right shoulder ulcer. dressing placed. ) Labs LABS Laboratory Tests Test 10/25/16 16:40 10/25/16 16:46 10/25/16 17:08 10/25/16 20:45 Glucose (Fingerstick) 19mg/dL (70-99) 107mg/dL (70-99) 40mg/dL (70-99) Glucose Level 36mg/dL (70-99) Test 10/25/16 21:10 10/25/16 21:39 10/25/16 22:35 10/26/16 01:30 Glucose Level 45mg/dL (70-99) Glucose (Fingerstick) 72mg/dL (70-99) 170mg/dL (70-99) 66mg/dL (70-99) Test 10/26/16 02:06 10/26/16 04:06 10/26/16 06:10 10/26/16 06:15 Glucose (Fingerstick) 143mg/dL (70-99) 75mg/dL (70-99) 37mg/dL (70-99) White Blood Count 8.4x10^3/uL (4.0-11.0) Red Blood Count 4.05x10^6/uL (4.30-5.70) Hemoglobin 11.6g/dL (13.0-17.5) Hematocrit 36.5% (39.0-53.0) Mean Corpuscular Volume 90fL (79-100) Mean Corpuscular Hemoglobin 29pg (25-35) Mean Corpuscular Hemoglobin Concent 32g/dL (31-37) Red Cell Distribution Width 18.0% (11.5-14.5) Platelet Count 19x10^3/uL (140-400) Neutrophils (%) (Auto) 87% (31-73) Lymphocytes (%) (Auto) 6% (24-48) Monocytes (%) (Auto) 6% (0-9) Eosinophils (%) (Auto) 1% (0-3) Basophils (%) (Auto) 0% (0-3) Neutrophils # (Auto) 7.3x10^3uL (1.8-7.7) Lymphocytes # (Auto) 0.5x10^3/uL (1.0-4.8) Monocytes # (Auto) 0.5x10^3/uL (0.0-1.1) Eosinophils # (Auto) 0.0x10^3/uL (0.0-0.7) Basophils # (Auto) 0.0x10^3/uL (0.0-0.2) Sodium Level 136mmol/L (136-145) Potassium Level 5.1mmol/L (3.5-5.1) Chloride Level 100mmol/L (98-107) Carbon Dioxide Level 30mmol/L (21-32) Anion Gap 6 (6-14) Blood Urea Nitrogen 55mg/dL (8-26) Creatinine 4.5mg/dL (0.7-1.3) Estimated GFR (Cockcroft-Gault) 16.4 Glucose Level 43mg/dL (70-99) Calcium Level 7.4mg/dL (8.5-10.1) Phosphorus Level 4.9mg/dL (2.6-4.7) Magnesium Level 1.7mg/dL (1.8-2.4) Albumin 2.0g/dL (3.4-5.0) Test 10/26/16 06:43 10/26/16 08:38 10/26/16 09:51 10/26/16 12:06 Glucose (Fingerstick) 126mg/dL (70-99) 65mg/dL (70-99) 133mg/dL (70-99) 101mg/dL (70-99) Review of Systems Review of Systems no fever, chills, sob or chest pain Assessment and Plan Assessmemt and Plan Problems Medical Problems: (1) Ascites Status: Acute (2) ESRD (end stage renal disease) on dialysis Status: Acute (3) SVT (supraventricular tachycardia) Status: Acute (4) Syncope Status: Acute Problems: Comment Review of Relevant I have reviewed the following items дмитрий (where applicable) has been applied. Labs Laboratory Tests Test 10/24/16 16:48 10/24/16 18:00 10/24/16 18:11 10/24/16 19:30 Glucose (Fingerstick) 45mg/dL (70-99) 39mg/dL (70-99) 136mg/dL (70-99) Glucose Level 145mg/dL (70-99) Ammonia 133mcmol/L (11-34) Test 10/24/16 21:08 10/25/16 01:10 10/25/16 01:16 10/25/16 01:42 Glucose (Fingerstick) 81mg/dL (70-99) 27mg/dL (70-99) 15mg/dL (70-99) 79mg/dL (70-99) Test 10/25/16 04:06 10/25/16 04:30 10/25/16 07:56 10/25/16 09:00 Glucose (Fingerstick) 87mg/dL (70-99) White Blood Count 6.8x10^3/uL (4.0-11.0) Red Blood Count 4.03x10^6/uL (4.30-5.70) Hemoglobin 11.6g/dL (13.0-17.5) Hematocrit 37.2% (39.0-53.0) Mean Corpuscular Volume 92fL (79-100) Mean Corpuscular Hemoglobin 29pg (25-35) Mean Corpuscular Hemoglobin Concent 31g/dL (31-37) Red Cell Distribution Width 18.2% (11.5-14.5) Platelet Count 34x10^3/uL (140-400) Neutrophils (%) (Auto) 90% (31-73) Lymphocytes (%) (Auto) 5% (24-48) Monocytes (%) (Auto) 5% (0-9) Eosinophils (%) (Auto) 0% (0-3) Basophils (%) (Auto) 0% (0-3) Neutrophils # (Auto) 6.1x10^3uL (1.8-7.7) Lymphocytes # (Auto) 0.3x10^3/uL (1.0-4.8) Monocytes # (Auto) 0.4x10^3/uL (0.0-1.1) Eosinophils # (Auto) 0.0x10^3/uL (0.0-0.7) Basophils # (Auto) 0.0x10^3/uL (0.0-0.2) Platelet Estimate Decreased (ADEQUATE) Large Platelets Present Poikilocytosis Present [place] Cells Few Schistocytes Few Sodium Level 133mmol/L (136-145) Potassium Level 6.8mmol/L (3.5-5.1) 5.6mmol/L (3.5-5.1) Chloride Level 100mmol/L (98-107) Carbon Dioxide Level 23mmol/L (21-32) Anion Gap 10 (6-14) Blood Urea Nitrogen 76mg/dL (8-26) Creatinine 6.3mg/dL (0.7-1.3) Estimated GFR (Cockcroft-Gault) 11.1 Glucose Level 88mg/dL (70-99) Calcium Level 6.8mg/dL (8.5-10.1) Creatine Kinase 144U/L (39-308) Cortisol AM Sample 36.1ug/dL (6.2-19.4) Test 10/25/16 11:29 10/25/16 11:40 10/25/16 12:02 10/25/16 16:40 Glucose (Fingerstick) 24mg/dL (70-99) 88mg/dL (70-99) 19mg/dL (70-99) Potassium Level 4.0mmol/L (3.5-5.1) Glucose Level 32mg/dL (70-99) Test 10/25/16 16:46 10/25/16 17:08 10/25/16 20:45 10/25/16 21:10 Glucose Level 36mg/dL (70-99) 45mg/dL (70-99) Glucose (Fingerstick) 107mg/dL (70-99) 40mg/dL (70-99) Test 10/25/16 21:39 10/25/16 22:35 10/26/16 01:30 10/26/16 02:06 Glucose (Fingerstick) 72mg/dL (70-99) 170mg/dL (70-99) 66mg/dL (70-99) 143mg/dL (70-99) Test 10/26/16 04:06 10/26/16 06:10 10/26/16 06:15 10/26/16 06:43 Glucose (Fingerstick) 75mg/dL (70-99) 37mg/dL (70-99) 126mg/dL (70-99) White Blood Count 8.4x10^3/uL (4.0-11.0) Red Blood Count 4.05x10^6/uL (4.30-5.70) Hemoglobin 11.6g/dL (13.0-17.5) Hematocrit 36.5% (39.0-53.0) Mean Corpuscular Volume 90fL (79-100) Mean Corpuscular Hemoglobin 29pg (25-35) Mean Corpuscular Hemoglobin Concent 32g/dL (31-37) Red Cell Distribution Width 18.0% (11.5-14.5) Platelet Count 19x10^3/uL (140-400) Neutrophils (%) (Auto) 87% (31-73) Lymphocytes (%) (Auto) 6% (24-48) Monocytes (%) (Auto) 6% (0-9) Eosinophils (%) (Auto) 1% (0-3) Basophils (%) (Auto) 0% (0-3) Neutrophils # (Auto) 7.3x10^3uL (1.8-7.7) Lymphocytes # (Auto) 0.5x10^3/uL (1.0-4.8) Monocytes # (Auto) 0.5x10^3/uL (0.0-1.1) Eosinophils # (Auto) 0.0x10^3/uL (0.0-0.7) Basophils # (Auto) 0.0x10^3/uL (0.0-0.2) Sodium Level 136mmol/L (136-145) Potassium Level 5.1mmol/L (3.5-5.1) Chloride Level 100mmol/L (98-107) Carbon Dioxide Level 30mmol/L (21-32) Anion Gap 6 (6-14) Blood Urea Nitrogen 55mg/dL (8-26) Creatinine 4.5mg/dL (0.7-1.3) Estimated GFR (Cockcroft-Gault) 16.4 Glucose Level 43mg/dL (70-99) Calcium Level 7.4mg/dL (8.5-10.1) Phosphorus Level 4.9mg/dL (2.6-4.7) Magnesium Level 1.7mg/dL (1.8-2.4) Albumin 2.0g/dL (3.4-5.0) Test 10/26/16 08:38 10/26/16 09:51 10/26/16 12:06 Glucose (Fingerstick) 65mg/dL (70-99) 133mg/dL (70-99) 101mg/dL (70-99) Laboratory Tests Test 10/25/16 16:40 10/25/16 16:46 10/25/16 17:08 10/25/16 20:45 Glucose (Fingerstick) 19mg/dL (70-99) 107mg/dL (70-99) 40mg/dL (70-99) Glucose Level 36mg/dL (70-99) Test 10/25/16 21:10 10/25/16 21:39 10/25/16 22:35 10/26/16 01:30 Glucose Level 45mg/dL (70-99) Glucose (Fingerstick) 72mg/dL (70-99) 170mg/dL (70-99) 66mg/dL (70-99) Test 10/26/16 02:06 10/26/16 04:06 10/26/16 06:10 10/26/16 06:15 Glucose (Fingerstick) 143mg/dL (70-99) 75mg/dL (70-99) 37mg/dL (70-99) White Blood Count 8.4x10^3/uL (4.0-11.0) Red Blood Count 4.05x10^6/uL (4.30-5.70) Hemoglobin 11.6g/dL (13.0-17.5) Hematocrit 36.5% (39.0-53.0) Mean Corpuscular Volume 90fL (79-100) Mean Corpuscular Hemoglobin 29pg (25-35) Mean Corpuscular Hemoglobin Concent 32g/dL (31-37) Red Cell Distribution Width 18.0% (11.5-14.5) Platelet Count 19x10^3/uL (140-400) Neutrophils (%) (Auto) 87% (31-73) Lymphocytes (%) (Auto) 6% (24-48) Monocytes (%) (Auto) 6% (0-9) Eosinophils (%) (Auto) 1% (0-3) Basophils (%) (Auto) 0% (0-3) Neutrophils # (Auto) 7.3x10^3uL (1.8-7.7) Lymphocytes # (Auto) 0.5x10^3/uL (1.0-4.8) Monocytes # (Auto) 0.5x10^3/uL (0.0-1.1) Eosinophils # (Auto) 0.0x10^3/uL (0.0-0.7) Basophils # (Auto) 0.0x10^3/uL (0.0-0.2) Sodium Level 136mmol/L (136-145) Potassium Level 5.1mmol/L (3.5-5.1) Chloride Level 100mmol/L (98-107) Carbon Dioxide Level 30mmol/L (21-32) Anion Gap 6 (6-14) Blood Urea Nitrogen 55mg/dL (8-26) Creatinine 4.5mg/dL (0.7-1.3) Estimated GFR (Cockcroft-Gault) 16.4 Glucose Level 43mg/dL (70-99) Calcium Level 7.4mg/dL (8.5-10.1) Phosphorus Level 4.9mg/dL (2.6-4.7) Magnesium Level 1.7mg/dL (1.8-2.4) Albumin 2.0g/dL (3.4-5.0) Test 10/26/16 06:43 10/26/16 08:38 10/26/16 09:51 10/26/16 12:06 Glucose (Fingerstick) 126mg/dL (70-99) 65mg/dL (70-99) 133mg/dL (70-99) 101mg/dL (70-99) Microbiology 10/25/16 Blood Culture - Preliminary, Resulted NO GROWTH AFTER 1 DAY Medications Current Medications Sodium Chloride 500 ml @ 250 mls/hr 1X ONCE IV Last administered on 16:24; Start 10/23/16 at 16:15; Stop 10/23/16 at 18:14; Status DC Sodium Chloride (Iv Sodium Chloride 0.9% 500ml Bag) 500 ml @ 250 mls/hr 1X ONCE IV Last administered on 10/23/16 17:15; Start 10/23/16 at 17:15; Stop at 19:14; Status DC Diltiazem HCl 5 mg 5 mg 1X ONCE IVP Last administered on 10/23/16 19:12; Start 10/23/16 at 18:45; Stop 10/23/16 at 18:49; Status DC Diltiazem HCl/ Dextrose (Cardizem) 125 ml @ 0 mls/hr 1X ONCE IV ; Start at 18:45; Stop 10/23/16 at 19:59; Status DC Digoxin (Lanoxin) 250 mcg 1X ONCE IV Last administered on 10/23/16 22:36; Start 10/23/16 at 20:00; Stop 10/23/16 at 20:01; Status DC Ondansetron HCl (Zofran) 4 mg PRN Q8HRS PRN IV NAUSEA/VOMITING; Start 10/23/16 at 20:15; Stop 10/23/16 at 22:04; Status DC Acetaminophen (Tylenol) 650 mg PRN Q4HRS PRN PO FEVER; Start 10/23/16 at 20:15 ; Stop 10/23/16 at 22:04; Status DC Acetaminophen (Tylenol) 325 mg PRN Q6HRS PRN PO MILD PAIN / TEMP; Start at 22:00; Stop 10/25/16 at 11:09; Status DC Acetaminophen/ Hydrocodone Bitart (Lortab 5/325) 1 tab PRN Q6HRS PRN PO MODERATE TO SEVERE PAIN; Start 10/23/16 at 22:00 Hydralazine HCl (Apresoline) 10 mg PRN Q4HRS PRN IVP ELEVATED BP, SEE COMMENTS ; Start 10/23/16 at 22:00 Ondansetron HCl (Zofran) 4 mg PRN Q8HRS PRN IV NAUSEA/VOMITING; Start 10/23/16 at 22:00 Albuterol Sulfate 2.5 mg 2.5 mg PRN Q4HRS PRN NEB SHORTNESS OF BREATH; Start at 22:00 Sodium Chloride (Iv Sodium Chloride 0.9% 500ml Bag) 500 ml @ 500 mls/hr 1X ONCE IV Last administered on 10/23/16 22:34; Start 10/23/16 at 22:30; Stop at 23:29; Status DC Pneumococcal Polyvalent Vaccine (Do NOT chart on this placeholder) 1 each PRN DAILY PRN [facility] UNABLE TO RESPOND; Start 10/24/16 at 00:15; Status Cancel Dextrose (Dextrose 50%-Water Syringe) 12.5 gm PRN Q15MIN PRN IV SEE COMMENTS Last administered on 10/25/16 21:40; Start 10/24/16 at 01:15 Dextrose (Dextrose 50%-Water Syringe) 25 gm STK-MED ONCE IV ; Start 10/24/16 at 01:05; Stop 10/24/16 at 01:06; Status DC Metoprolol Tartrate (Lopressor) 12.5 mg BID PO Last administered on 10/25/16 21:06; Start 10/24/16 at 09:30 Acetaminophen (Tylenol) 650 mg PRN Q4HRS PRN PO PAIN; Start 10/24/16 at 10:45 Allopurinol (Zyloprim) 100 mg DAILY PO Last administered on 10/24/16 13:51; Start 10/24/16 at 11:00 Atorvastatin Calcium (Lipitor) 10 mg DAILY PO Last administered on 10/24/16 13 :52; Start 10/24/16 at 11:00; Stop 10/25/16 at 14:11; Status DC Calcium Acetate (Phoslo) 1,334 mg TIDWMEALS PO Last administered on 10/25/16 12:55; Start 10/24/16 at 12:00 Diphenhydramine HCl (Benadryl) 25 mg PRN Q4HRS PRN PO ITCHING; Start 10/24/16 at 10:45 Famotidine (Pepcid) 20 mg DAILY PO Last administered on 10/25/16 12:46; Start 10/24/16 at 11:00 Fentanyl (Duragesic 50mcg/ Hr Patch) 1 patch Q72H TD Last administered on 13:54; Start 10/24/16 at 11:00 Ferrous Sulfate (Feosol) 325 mg DAILY PO Last administered on 10/24/16 13:55; Start 10/24/16 at 11:00 Folic Acid (Folic Acid) 1 mg DAILY PO Last administered on 10/25/16 12:54; Start 10/24/16 at 11:00 Levothyroxine Sodium (Synthroid) 75 mcg DAILYAC PO Last administered on 08:39; Start 10/25/16 at 07:30 Midodrine (Proamatine) 2.5 mg PRN TID PRN PO BLOOD PRESSURE; Start 10/24/16 at 10:45 Midodrine (Proamatine) 5 mg [id number] PO Last administered on 10/25/16 12:55; Start 10/24/16 at 14:00 Sodium Bicarbonate (Sodium Bicarbonate) 650 mg BID PO Last administered on 10/25 21:06; Start 10/24/16 at 11:00 Calcium/Vitamin D (Oscal D 500mg/ 200uts) 1 tab TID PO Last administered on 21:07; Start 10/24/16 at 14:00 Non-Formulary Medication 500 mg QID PO ; Start 10/24/16 at 13:00; Stop 10/24/16 at 13:00; Status DC Glucagon (Glucagen) 1 mg 1X PRN IM [id number]; Start 10/24/16 at 11:00 Insulin Aspart (Novolog) 3 units TIDAC SQ ; Start 10/24/16 at 11:30; Stop at 11:36; Status DC Lactobacillus Acidophilus (Bacid, Lou-Bid) 2 tab DAILY PO Last administered on 10/24/16 13:52; Start 10/24/16 at 11:00 Oxycodone HCl (Roxicodone) 5 mg PRN Q4HRS PRN PO PAIN Last administered on 10/25 21:07; Start 10/24/16 at 11:15 Potassium Chloride (Klor-Con) 10 meq [id number] PO Last administered on 13:51; Start 10/24/16 at 11:00 Vancomycin HCl 125 mg Q6HRS PO Last administered on 10/26/16 06:14; Start 10/24 at 12:00; Stop 10/26/16 at 11:21; Status DC Piperacillin Sod/ Tazobactam Sod 1 each 1 each PRN DAILY PRN [facility] SEE COMMENTS; Start 10/24/16 at 10:45 Vancomycin HCl 1.5 gm/Sodium Chloride 500 ml @ 250 mls/hr 1X ONCE IV ; Start 10/24/16 at 11:15; Stop 10/24/16 at 11:15; Status DC Piperacillin Sod/ Tazobactam Sod/ Sodium Chloride (Zosyn/Iv Sodium Chloride 0.9 % 50ml) 50 ml @ 100 mls/hr Q6HRS IV Last administered on 10/26/16 06:14; Start 10/24/16 at 12:00 Insulin Aspart (Novolog) 3 units TIDAC SQ ; Start 10/24/16 at 11:35; Stop at 07:44; Status DC Heparin Sodium (Porcine) 5000 unit 5,000 unit Q8HRS SQ Last administered on 06:09; Start 10/24/16 at 22:00; Stop 10/25/16 at 14:04; Status DC Amino Acids/ Glycerin/ Electrolytes (Procalamine) 1,000 ml @ 40 mls/hr Q24H IV Last administered on 10/26/16 04:09; Start 10/24/16 at 17:15; Stop 10/26/16 at 10:57; Status DC Dextrose (Dextrose 50%-Water Syringe) 25 gm PRN Q1HR PRN IV SEE COMMENTS Last administered on 10/26/16 08:54; Start 10/24/16 at 17:15 Glucose (Insta-Glucose) 15 gm STK-MED ONCE .ROUTE ; Start 10/24/16 at 17:44; Stop 10/24/16 at 17:45; Status DC Glucose (Insta-Glucose) 15 gm PRN Q15MIN PRN PO LOW BLOOD SUGAR Last administered on 10/24/16 17:50; Start 10/24/16 at 18:00 Sodium Polystyrene Sulfonate 15 gm 15 gm 1X ONCE PO ; Start 10/25/16 at 07:00; Stop 10/25/16 at 07:01; Status DC Magnesium Sulfate/ Dextrose (Magnesium Sulfate PREMIX 2GM) 50 ml @ 25 mls/hr PRN DAILY PRN IV for Mag < 1.7 on am labs; Start 10/25/16 at 07:30 Calcium Gluconate 1000 mg 1,000 mg Q2H IVP Last administered on 10/25/16 17:11 ; Start 10/25/16 at 07:30; Stop 10/25/16 at 11:31; Status DC Albumin Human 100 ml @ 100 mls/hr 1X ONCE IV Last administered on 10/25/16 08:32; Start 10/25/16 at 08:30; Stop 10/25/16 at 09:29; Status DC Albumin Human (Albuminar) 50 ml @ 50 mls/hr 1X ONCE IV Last administered on 08:30; Start 10/25/16 at 08:30; Stop 10/25/16 at 09:29; Status DC Info (PHARMACY MONITORING -- do not chart) 1 each PRN DAILY PRN MC SEE COMMENTS ; Start 10/25/16 at 08:45 Info 1 each 1 each PRN DAILY PRN MC SEE COMMENTS; Start 10/25/16 at 08:45; Status Cancel Sodium Chloride 1,000 ml @ 1,000 mls/hr Q1H PRN IV hypotension; Start 10/25/16 at 08:54; Stop 10/25/16 at 14:53; Status DC Albumin Human (Albuminar) 200 ml @ 200 mls/hr 1X PRN PRN IV Hypotension Last administered on 10/25/16 09:08; Start 10/25/16 at 09:00; Stop 10/25/16 at 14:59 ; Status DC Sodium Chloride (Normal Saline Flush) 10 ml 1X PRN PRN IV AP catheter pack; Start 10/25/16 at 09:00; Stop 10/26/16 at 08:59; Status DC Sodium Chloride (Normal Saline Flush) 10 ml 1X PRN PRN IV CH[employer]PER[employer] catheter pack; Start 10/25/16 at 09:00; Stop 10/26/16 at 08:59; Status DC Info (PHARMACY MONITORING -- do not chart) 1 each PRN DAILY PRN MC SEE COMMENTS ; Start 10/25/16 at 09:00; Status Cancel Info (PHARMACY MONITORING -- do not chart) 1 each PRN DAILY PRN MC SEE COMMENTS ; Start 10/25/16 at 09:00; Stop 10/26/16 at 11:18; Status DC Atorvastatin Calcium (Lipitor) 10 mg QHS PO ; Start 10/26/16 at 21:00 Dextrose 25 gm 25 gm 1X ONCE IV Last administered on 10/25/16 22:00; Start at 22:15; Stop 10/25/16 at 22:16; Status DC Dextrose 1,000 ml @ 80 mls/hr [id number] IV Last administered on 10/26/16 11:29; Start 10/26/16 at 11:00 Vancomycin HCl 125 mg BID PO ; Start 10/26/16 at 21:00 Active Scripts Active Midodrine Hcl 2.5 Mg Tablet 2.5 Mg PO PRN TID PRN Reported Gluco Burst (Dextrose) 37.5 Gm Gel..gram. 37.5 Gm PO PRN Glucagon Emergency Kit (Glucagon,Human Recombinant) 1 Mg Kit 1 Mg IM PRN Ferrous Sulfate 325 Mg Tablet 1 Tab PO DAILY DURAGESIC 50mcg/hr (Fentanyl) 1 Each Patch.td72 1 Patch TD Q72H Benadryl (Diphenhydramine Hcl) 25 Mg Capsule 25 Mg PO PRN Q4HRS PRN Midodrine Hcl 5 Mg Tablet 5 Mg PO BID Sodium Bicarbonate 650 Mg Tablet 650 Mg PO BID Potassium Chloride 10 Meq Tablet.er 10 Meq PO DAILY Keflex (Cephalexin) 500 Mg Capsule 500 Mg PO QID Humalog Kwikpen (Insulin Lispro) 200 Unit/1 Ml Insuln.pen 3 Unit SQ TIDAC Famotidine 20 Mg Tablet 20 Mg PO DAILY Oxycodone Hcl 15 Mg Tablet 1 Tab PO PRN Q4HRS PRN Phoslo (Calcium Acetate) 667 Mg Capsule 2 Cap PO TIDWMEALS Allopurinol 100 Mg Tablet 1 Tab PO DAILY Oyster Shell Calcium-Vit D Tab (Calcium Carbonate/Vitamin D2) 1 Each Tablet 1 Each PO TID Acidophilus Lactobacillus (Lactobacillus Acidophilus) 1 Each Capsule 1 Each PO DAILY Acetaminophen 325 Mg Tablet 650 Mg PO PRN Q4HRS PRN Atorvastatin Calcium 10 Mg Tablet 1 Tab PO DAILY Folic Acid 1 Mg Tablet 1 Mg PO DAILY Levothyroxine Sodium 25 Mcg Tablet 75 Mcg PO DAILYAC Vitals/I & O Vital Sign - Last 24 Hours 10/25/16 10/25/16 10/25/16 10/25/16 12:47 12:55 13:47 15:02 Temp 96.8 96.8 Pulse 123 Resp 16 18 20 B/P 123/86 100/70 Pulse Ox 96 97 O2 Delivery Nasal Cannula Nasal Cannula Nasal Cannula O2 Flow Rate 2.0 2.0 2.0 10/25/16 10/25/16 10/25/16 10/25/16 19:30 20:00 21:06 23:10 Temp 97.2 97.4 97.2 97.4 Pulse 90 90 77 Resp 18 13 B/P 132/89 132/89 129/99 Pulse Ox 97 92 O2 Delivery Nasal Cannula Nasal Cannula Room Air O2 Flow Rate 2.0 2.0 10/26/16 10/26/16 10/26/16 10/26/16 03:15 08:00 08:00 09:00 Temp 97.9 94.2 94.0 97.9 94.2 94.0 Pulse 67 69 64 Resp 18 9 11 B/P 114/83 124/98 99/84 Pulse Ox 93 99 100 O2 Delivery Room Air Nasal Cannula Nasal Cannula Nasal Cannula O2 Flow Rate 2.0 2.0 2.0 10/26/16 10/26/16 10:00 11:00 Temp 94.3 94.3 Pulse 68 75 Resp 14 15 B/P 120/91 107/87 Pulse Ox 96 98 O2 Delivery Nasal Cannula Nasal Cannula O2 Flow Rate 2.0 2.0 Intake and Output 10/25/16 10/25/16 10/26/16 15:00 23:00 07:00 Intake Total 425 ml 30 ml Output Total 0 ml Balance 425 ml 30 ml Nutrition Consultation Dietary Evaluation: Recommendations by RD: Increase Calorie Intake, Protein supplementation Comments: Rec. continue novasource renal TID - 475kcal and 21.6g protein per serving Rec. MVI and 500mg vit c q day to aid wound healing Expected Outcomes/Goals: to meet >75% est nutr needs Malnutrition Findings: Food and Nutrition Intake (Mod: <75% est energy req 7days Body Fat Depletion (Non Severe: Mod to Severe Weight Status: Appropriate JOSSE STAHL MD October 26, 2016 12:29
--- NOTE | 2016-10-26 12:45 | PDOC2 ---
GI CONSULT Reason For Consult: Ascites HPI: HPI: 56 y/o male, known to GI/Dr. Park. H/o cirrhosis/Hep C w/ recurrent ascites requiring frequent paracentesis. Last paracentesis 09/29/16 w/ removal of 8400cc of fluid. Admitted w/ SVT and sepsis, transferred to ICU w/ hypoglycemia. Not much history from pt. Most recent labs include INR 1.6, plt 19. PMH: PMH: ESRD on HD, CHF, DM, hypotension, COPD, anemia/thrombocytopenia, OA, DDD, gout, pancreatitis, C Diff, Hep C, cirrhosis, cardiomyopathy FH: Family History: No pertinent hx Social History: ALCOHOL: none Drugs: None ROS: Basically unobtainable. VItals: Vitals: Vital Signs Date Time Temp Pulse Resp B/P Pulse Ox O2 Delivery O2 Flow Rate FiO2 10/26/16 12:00 94.4 75 7 119/88 100 Nasal Cannula 2.0 94.4 Labs: Labs: Laboratory Tests Test 10/25/16 16:40 10/25/16 16:46 10/25/16 17:08 10/25/16 20:45 Glucose (Fingerstick) 19mg/dL (70-99) 107mg/dL (70-99) 40mg/dL (70-99) Glucose Level 36mg/dL (70-99) Test 10/25/16 21:10 10/25/16 21:39 10/25/16 22:35 10/26/16 01:30 Glucose Level 45mg/dL (70-99) Glucose (Fingerstick) 72mg/dL (70-99) 170mg/dL (70-99) 66mg/dL (70-99) Test 10/26/16 02:06 10/26/16 04:06 10/26/16 06:10 10/26/16 06:15 Glucose (Fingerstick) 143mg/dL (70-99) 75mg/dL (70-99) 37mg/dL (70-99) White Blood Count 8.4x10^3/uL (4.0-11.0) Red Blood Count 4.05x10^6/uL (4.30-5.70) Hemoglobin 11.6g/dL (13.0-17.5) Hematocrit 36.5% (39.0-53.0) Mean Corpuscular Volume 90fL (79-100) Mean Corpuscular Hemoglobin 29pg (25-35) Mean Corpuscular Hemoglobin Concent 32g/dL (31-37) Red Cell Distribution Width 18.0% (11.5-14.5) Platelet Count 19x10^3/uL (140-400) Neutrophils (%) (Auto) 87% (31-73) Lymphocytes (%) (Auto) 6% (24-48) Monocytes (%) (Auto) 6% (0-9) Eosinophils (%) (Auto) 1% (0-3) Basophils (%) (Auto) 0% (0-3) Neutrophils # (Auto) 7.3x10^3uL (1.8-7.7) Lymphocytes # (Auto) 0.5x10^3/uL (1.0-4.8) Monocytes # (Auto) 0.5x10^3/uL (0.0-1.1) Eosinophils # (Auto) 0.0x10^3/uL (0.0-0.7) Basophils # (Auto) 0.0x10^3/uL (0.0-0.2) Sodium Level 136mmol/L (136-145) Potassium Level 5.1mmol/L (3.5-5.1) Chloride Level 100mmol/L (98-107) Carbon Dioxide Level 30mmol/L (21-32) Anion Gap 6 (6-14) Blood Urea Nitrogen 55mg/dL (8-26) Creatinine 4.5mg/dL (0.7-1.3) Estimated GFR (Cockcroft-Gault) 16.4 Glucose Level 43mg/dL (70-99) Calcium Level 7.4mg/dL (8.5-10.1) Phosphorus Level 4.9mg/dL (2.6-4.7) Magnesium Level 1.7mg/dL (1.8-2.4) Albumin 2.0g/dL (3.4-5.0) Test 10/26/16 06:43 10/26/16 08:38 10/26/16 09:51 10/26/16 12:06 Glucose (Fingerstick) 126mg/dL (70-99) 65mg/dL (70-99) 133mg/dL (70-99) 101mg/dL (70-99) Allergies: Coded Allergies: No Known Medication Allergies (Verified Allergy, Unknown, 06/24/16) Medications: Current Medications Medications (Trade) Dose Ordered Sig/Madi Route PRN Reason Start Time Stop Time Status Last Admin Dose Admin Dextrose 25 gm 25 gm 1X ONCE IV 10/25/16 22:15 10/25/16 22:16 DC 10/25/16 22:00 Dextrose 1,000 ml @ 80 mls/hr [id number] IV 10/26/16 11:00 10/26/16 11:29 PE: GEN: NAD HEENT: atraumatic, PERRL LUNGS: clear anteriorly, nasal cannula HEART: RRR ABD: distended/ascites NEURO/PSYCH: mumbles, says "YES" very loudly once A/P: A/P: Cirrhosis, Hep C, recurrent ascites/paracentesis, thrombocytopenia -last paracentesis 09/29/16, 8400cc Hypoglycemia, sepsis, SVT, ESRD on HD -- Note plans for palliative care meeting. Will ask for IR consult re: paracentesis, probably have to wait until platelets improved. SARAVANAN KEARNEY October 26, 2016 12:45
[2016-10-26] MEDS: AMPICILLIN/SULBACTAM 1.5 GM in IV NORMAL SALINE 50ML 50 ML IV SCH (17:04)
--- NOTE | 2016-10-26 17:09 | PDOC2 ---
PALLIATIVE CARE Palliative Care Note Palliative Care Patient awake. Does not wish to participate in meeting with his sister and mother. Met with Blanca and Mrs. Hopkins--patient's mother. Patient has no AD per prison. Reviewed current medical condition; ESLD; ESRD; HF: malnutrition; DM, sepsis; Reviewed results of Labs and medications patient currently receiving per request of family. Patient needing paracentesis to remove ascites . Informed family unable to have procedure secondary to decreased platelets and risk of bleeding. Discussed options of care; comfort care vs continue current treatment plan vs limitations of procedure including resuscitation. Blanca and Mrs. Hopkins request every measure be done to "keep him alive." Informed patient as risk for injury to chest/lungs/rib fracture including bleeding with CPR. They acknowledge understanding and request Full Code. Plan: Continue Full Aggressive Care Full Code. NESTOR ALANIZ October 26, 2016 17:09
[2016-10-26] MEDS: ATORVASTATIN CALCIUM 10 MG TABLET. PO SCH ×2 (21:18→21:28)
[2016-10-27] VITALS (29 sets, daily range): BP systolic 87–144; BP diastolic 67–106
[2016-10-27] MEDS: IV DEXTROSE 10% 1,000 ML IV SCH ×2 (00:15→16:31)
[2016-10-27] MEDS: AMPICILLIN/SULBACTAM 1.5 GM in IV NORMAL SALINE 50ML 50 ML IV SCH ×5 (00:16→23:57)
[2016-10-27 06:14] LABS: ALBUMIN 1.9 g/dL (3.4-5.0); CALCIUM 6.9 mg/dL (8.5-10.1); CREATININE 5.1 mg/dL (0.7-1.3); GFR 14.2; MAGNESIUM 1.7 mg/dL (1.8-2.4); PHOSPHORUS 5.5 mg/dL (2.6-4.7)
[2016-10-27 06:28] LABS: BASO % 0 % (0-3); EOS % 1 % (0-3); HEMATOCRIT 35.2 % (39.0-53.0); HEMOGLOBIN 11.5 g/dL (13.0-17.5); LYMPH # 0.5 x10^3/uL (1.0-4.8); LYMPH % 5 % (24-48); MEAN CORPUSCULAR HEMOGLOBIN 29 pg (25-35); MEAN CORPUSCULAR HGB CONC 33 g/dL (31-37); MEAN CORPUSCULAR VOLUME 87 fL (79-100); MONO % 5 % (0-9); NEUT % 88 % (31-73); RED BLOOD COUNT 4.03 x10^6/uL (4.30-5.70); RED CELL DISTRIBUTION WIDTH 17.7 % (11.5-14.5); WHITE BLOOD COUNT 10.1 x10^3/uL (4.0-11.0)
[2016-10-27 06:45] LABS: PLATELET COUNT 22 x10^3/uL (140-400)
[2016-10-27] MEDS: LEVOTHYROXINE 25 MCG TABLET. PO SCH (08:04)
[2016-10-27] MEDS: LACTOBACILLUS ACIDOPH & BULGAR 1 TABLET. PO SCH (08:04)
[2016-10-27] MEDS: POTASSIUM CHLORIDE 10 MEQ TABLET.ER. PO SCH (08:05)
[2016-10-27] MEDS: CALCIUM ACETATE 667 MG CAPSULE PO SCH ×4 (08:05→17:06)
[2016-10-27] MEDS: FERROUS SULFATE 325 MG TABLET. PO SCH (08:05)
[2016-10-27] MEDS: FOLIC ACID 1 MG TABLET. PO SCH (08:05)
[2016-10-27] MEDS: SODIUM BICARBONATE 650 MG TABLET. PO SCH ×2 (08:05→21:42)
[2016-10-27] MEDS: CALCIUM CARB/VIT D3 500/200 TABLET. PO SCH ×3 (08:05→21:42)
[2016-10-27] MEDS: MIDODRINE 5 MG TABLET PO SCH ×2 (08:06→14:00)
[2016-10-27] MEDS: ALLOPURINOL 100 MG TABLET. PO SCH (08:06)
[2016-10-27] MEDS: FAMOTIDINE 20 MG TABLET. PO SCH (08:06)
--- NOTE | 2016-10-27 08:20 | PDOC ---
Infectious Disease Note Subjective Subjective awake, no complaints ROS ROS no n/v/d/pain Vital Sign Vital Signs Vital Signs Date Time Temp Pulse Resp B/P Pulse Ox O2 Delivery O2 Flow Rate FiO2 10/27/16 08:06 94 112/94 10/27/16 06:00 12 93 Room Air 10/27/16 04:00 97.4 97.4 10/26/16 13:00 2.0 Physical Exam PHYSICAL EXAM GENERAL: NAD, Alert HEENT: PERRL, OC/OP NECK: Supple, no JVD, no LN LUNGS: Clear HEART: S1S2, no gallop, no murmur ABD: Soft, NT, no organomegaly, no rebound,, ascites + EXT: No edema, no cyanosis [employer]: Alert, oriented x 3, no focal neurologic deficit SKIN: No rash IV: ok Labs Lab Laboratory Tests Test 10/26/16 08:38 10/26/16 09:51 10/26/16 12:06 10/26/16 16:35 Glucose (Fingerstick) 65mg/dL (70-99) 133mg/dL (70-99) 101mg/dL (70-99) 102mg/dL (70-99) Test 10/26/16 21:18 10/27/16 03:48 10/27/16 05:35 Glucose (Fingerstick) 153mg/dL (70-99) 139mg/dL (70-99) White Blood Count 10.1x10^3/uL (4.0-11.0) Red Blood Count 4.03x10^6/uL (4.30-5.70) Hemoglobin 11.5g/dL (13.0-17.5) Hematocrit 35.2% (39.0-53.0) Mean Corpuscular Volume 87fL (79-100) Mean Corpuscular Hemoglobin 29pg (25-35) Mean Corpuscular Hemoglobin Concent 33g/dL (31-37) Red Cell Distribution Width 17.7% (11.5-14.5) Platelet Count 22x10^3/uL (140-400) Neutrophils (%) (Auto) 88% (31-73) Lymphocytes (%) (Auto) 5% (24-48) Monocytes (%) (Auto) 5% (0-9) Eosinophils (%) (Auto) 1% (0-3) Basophils (%) (Auto) 0% (0-3) Neutrophils # (Auto) 8.9x10^3uL (1.8-7.7) Lymphocytes # (Auto) 0.5x10^3/uL (1.0-4.8) Monocytes # (Auto) 0.5x10^3/uL (0.0-1.1) Eosinophils # (Auto) 0.1x10^3/uL (0.0-0.7) Basophils # (Auto) 0.0x10^3/uL (0.0-0.2) Sodium Level 133mmol/L (136-145) Potassium Level 5.0mmol/L (3.5-5.1) Chloride Level 97mmol/L (98-107) Carbon Dioxide Level 28mmol/L (21-32) Anion Gap 8 (6-14) Blood Urea Nitrogen 65mg/dL (8-26) Creatinine 5.1mg/dL (0.7-1.3) Estimated GFR (Cockcroft-Gault) 14.2 Glucose Level 138mg/dL (70-99) Calcium Level 6.9mg/dL (8.5-10.1) Phosphorus Level 5.5mg/dL (2.6-4.7) Magnesium Level 1.7mg/dL (1.8-2.4) Albumin 1.9g/dL (3.4-5.0) Objective Assessment Gram variable rods sepsis POA. Acinetobacter Bandemia H/o recent c. diff CKD on HD Cirrhosis of liver w/ refractory ascites DM with hypoglycemia Debility SVT Thrombocytopenia Plan Plan of Care unasyn Po vancomycin BID for prophylaxis Monitor labs Supportive care d/w dr Christie CLIFTON,CARMINE Kennedy MD October 27, 2016 08:20
[2016-10-27] MEDS: VANCOMYCIN 125 MG/2.5 ML ORAL SOLUTION. PO SCH ×2 (08:23→21:42)
[2016-10-27] MEDS ORDERED: IV NORMAL SALINE 1000ML BAG 1,000 ML IV PRN ×2 (10:11)
[2016-10-27] MEDS ORDERED: ALBUMIN HUMAN 25% 200 ML IV PRN (10:15)
[2016-10-27] MEDS ORDERED: diphenhydrAMINE 50 MG/ML VIAL IV PRN ×2 (10:15)
[2016-10-27] MEDS ORDERED: DIALYSIS PATIENT. MC PRN (10:15)
--- NOTE | 2016-10-27 10:55 | PDOC ---
G I PROGRESS NOTE Subjective Suspect he's feeling better as more interested in watching TV than making conversation. Does say feeling some better. Physical Exam Lungs clear. RRR Abdomen with ascites; does feel some softer today. Currently on dialysis. Review of Relevant I have reviewed the following items дмитрий (where applicable) has been applied. Labs Laboratory Tests Test 10/25/16 11:29 10/25/16 11:40 10/25/16 12:02 10/25/16 16:40 Glucose (Fingerstick) 24mg/dL (70-99) 88mg/dL (70-99) 19mg/dL (70-99) Potassium Level 4.0mmol/L (3.5-5.1) Glucose Level 32mg/dL (70-99) Test 10/25/16 16:46 10/25/16 17:08 10/25/16 20:45 10/25/16 21:10 Glucose Level 36mg/dL (70-99) 45mg/dL (70-99) Glucose (Fingerstick) 107mg/dL (70-99) 40mg/dL (70-99) Test 10/25/16 21:39 10/25/16 22:35 10/26/16 01:30 10/26/16 02:06 Glucose (Fingerstick) 72mg/dL (70-99) 170mg/dL (70-99) 66mg/dL (70-99) 143mg/dL (70-99) Test 10/26/16 04:06 10/26/16 06:10 10/26/16 06:15 10/26/16 06:43 Glucose (Fingerstick) 75mg/dL (70-99) 37mg/dL (70-99) 126mg/dL (70-99) White Blood Count 8.4x10^3/uL (4.0-11.0) Red Blood Count 4.05x10^6/uL (4.30-5.70) Hemoglobin 11.6g/dL (13.0-17.5) Hematocrit 36.5% (39.0-53.0) Mean Corpuscular Volume 90fL (79-100) Mean Corpuscular Hemoglobin 29pg (25-35) Mean Corpuscular Hemoglobin Concent 32g/dL (31-37) Red Cell Distribution Width 18.0% (11.5-14.5) Platelet Count 19x10^3/uL (140-400) Neutrophils (%) (Auto) 87% (31-73) Lymphocytes (%) (Auto) 6% (24-48) Monocytes (%) (Auto) 6% (0-9) Eosinophils (%) (Auto) 1% (0-3) Basophils (%) (Auto) 0% (0-3) Neutrophils # (Auto) 7.3x10^3uL (1.8-7.7) Lymphocytes # (Auto) 0.5x10^3/uL (1.0-4.8) Monocytes # (Auto) 0.5x10^3/uL (0.0-1.1) Eosinophils # (Auto) 0.0x10^3/uL (0.0-0.7) Basophils # (Auto) 0.0x10^3/uL (0.0-0.2) Sodium Level 136mmol/L (136-145) Potassium Level 5.1mmol/L (3.5-5.1) Chloride Level 100mmol/L (98-107) Carbon Dioxide Level 30mmol/L (21-32) Anion Gap 6 (6-14) Blood Urea Nitrogen 55mg/dL (8-26) Creatinine 4.5mg/dL (0.7-1.3) Estimated GFR (Cockcroft-Gault) 16.4 Glucose Level 43mg/dL (70-99) Calcium Level 7.4mg/dL (8.5-10.1) Phosphorus Level 4.9mg/dL (2.6-4.7) Magnesium Level 1.7mg/dL (1.8-2.4) Albumin 2.0g/dL (3.4-5.0) Cortisol AM Sample 31.2ug/dL (6.2-19.4) Test 10/26/16 07:45 10/26/16 08:38 10/26/16 09:51 10/26/16 12:06 Nasal Screen MRSA (PCR) Negative (Negative) Glucose (Fingerstick) 65mg/dL (70-99) 133mg/dL (70-99) 101mg/dL (70-99) Test 10/26/16 16:35 10/26/16 21:18 10/27/16 03:48 10/27/16 05:35 Glucose (Fingerstick) 102mg/dL (70-99) 153mg/dL (70-99) 139mg/dL (70-99) White Blood Count 10.1x10^3/uL (4.0-11.0) Red Blood Count 4.03x10^6/uL (4.30-5.70) Hemoglobin 11.5g/dL (13.0-17.5) Hematocrit 35.2% (39.0-53.0) Mean Corpuscular Volume 87fL (79-100) Mean Corpuscular Hemoglobin 29pg (25-35) Mean Corpuscular Hemoglobin Concent 33g/dL (31-37) Red Cell Distribution Width 17.7% (11.5-14.5) Platelet Count 22x10^3/uL (140-400) Neutrophils (%) (Auto) 88% (31-73) Lymphocytes (%) (Auto) 5% (24-48) Monocytes (%) (Auto) 5% (0-9) Eosinophils (%) (Auto) 1% (0-3) Basophils (%) (Auto) 0% (0-3) Neutrophils # (Auto) 8.9x10^3uL (1.8-7.7) Lymphocytes # (Auto) 0.5x10^3/uL (1.0-4.8) Monocytes # (Auto) 0.5x10^3/uL (0.0-1.1) Eosinophils # (Auto) 0.1x10^3/uL (0.0-0.7) Basophils # (Auto) 0.0x10^3/uL (0.0-0.2) Sodium Level 133mmol/L (136-145) Potassium Level 5.0mmol/L (3.5-5.1) Chloride Level 97mmol/L (98-107) Carbon Dioxide Level 28mmol/L (21-32) Anion Gap 8 (6-14) Blood Urea Nitrogen 65mg/dL (8-26) Creatinine 5.1mg/dL (0.7-1.3) Estimated GFR (Cockcroft-Gault) 14.2 Glucose Level 138mg/dL (70-99) Calcium Level 6.9mg/dL (8.5-10.1) Phosphorus Level 5.5mg/dL (2.6-4.7) Magnesium Level 1.7mg/dL (1.8-2.4) Albumin 1.9g/dL (3.4-5.0) Test 10/27/16 10:14 Glucose (Fingerstick) 126mg/dL (70-99) Laboratory Tests Test 10/26/16 12:06 10/26/16 16:35 10/26/16 21:18 10/27/16 03:48 Glucose (Fingerstick) 101mg/dL (70-99) 102mg/dL (70-99) 153mg/dL (70-99) 139mg/dL (70-99) Test 10/27/16 05:35 10/27/16 10:14 White Blood Count 10.1x10^3/uL (4.0-11.0) Red Blood Count 4.03x10^6/uL (4.30-5.70) Hemoglobin 11.5g/dL (13.0-17.5) Hematocrit 35.2% (39.0-53.0) Mean Corpuscular Volume 87fL (79-100) Mean Corpuscular Hemoglobin 29pg (25-35) Mean Corpuscular Hemoglobin Concent 33g/dL (31-37) Red Cell Distribution Width 17.7% (11.5-14.5) Platelet Count 22x10^3/uL (140-400) Neutrophils (%) (Auto) 88% (31-73) Lymphocytes (%) (Auto) 5% (24-48) Monocytes (%) (Auto) 5% (0-9) Eosinophils (%) (Auto) 1% (0-3) Basophils (%) (Auto) 0% (0-3) Neutrophils # (Auto) 8.9x10^3uL (1.8-7.7) Lymphocytes # (Auto) 0.5x10^3/uL (1.0-4.8) Monocytes # (Auto) 0.5x10^3/uL (0.0-1.1) Eosinophils # (Auto) 0.1x10^3/uL (0.0-0.7) Basophils # (Auto) 0.0x10^3/uL (0.0-0.2) Sodium Level 133mmol/L (136-145) Potassium Level 5.0mmol/L (3.5-5.1) Chloride Level 97mmol/L (98-107) Carbon Dioxide Level 28mmol/L (21-32) Anion Gap 8 (6-14) Blood Urea Nitrogen 65mg/dL (8-26) Creatinine 5.1mg/dL (0.7-1.3) Estimated GFR (Cockcroft-Gault) 14.2 Glucose Level 138mg/dL (70-99) Calcium Level 6.9mg/dL (8.5-10.1) Phosphorus Level 5.5mg/dL (2.6-4.7) Magnesium Level 1.7mg/dL (1.8-2.4) Albumin 1.9g/dL (3.4-5.0) Glucose (Fingerstick) 126mg/dL (70-99) Microbiology 10/25/16 Blood Culture - Preliminary, Resulted NO GROWTH AFTER 2 DAYS Platelet only 22,000. Medications Current Medications Sodium Chloride 500 ml @ 250 mls/hr 1X ONCE IV Last administered on 16:24; Start 10/23/16 at 16:15; Stop 10/23/16 at 18:14; Status DC Sodium Chloride (Iv Sodium Chloride 0.9% 500ml Bag) 500 ml @ 250 mls/hr 1X ONCE IV Last administered on 10/23/16 17:15; Start 10/23/16 at 17:15; Stop at 19:14; Status DC Diltiazem HCl 5 mg 5 mg 1X ONCE IVP Last administered on 10/23/16 19:12; Start 10/23/16 at 18:45; Stop 10/23/16 at 18:49; Status DC Diltiazem HCl/ Dextrose (Cardizem) 125 ml @ 0 mls/hr 1X ONCE IV ; Start at 18:45; Stop 10/23/16 at 19:59; Status DC Digoxin (Lanoxin) 250 mcg 1X ONCE IV Last administered on 10/23/16 22:36; Start 10/23/16 at 20:00; Stop 10/23/16 at 20:01; Status DC Ondansetron HCl (Zofran) 4 mg PRN Q8HRS PRN IV NAUSEA/VOMITING; Start 10/23/16 at 20:15; Stop 10/23/16 at 22:04; Status DC Acetaminophen (Tylenol) 650 mg PRN Q4HRS PRN PO FEVER; Start 10/23/16 at 20:15 ; Stop 10/23/16 at 22:04; Status DC Acetaminophen (Tylenol) 325 mg PRN Q6HRS PRN PO MILD PAIN / TEMP; Start at 22:00; Stop 10/25/16 at 11:09; Status DC Acetaminophen/ Hydrocodone Bitart (Lortab 5/325) 1 tab PRN Q6HRS PRN PO MODERATE TO SEVERE PAIN; Start 10/23/16 at 22:00 Hydralazine HCl (Apresoline) 10 mg PRN Q4HRS PRN IVP ELEVATED BP, SEE COMMENTS ; Start 10/23/16 at 22:00 Ondansetron HCl (Zofran) 4 mg PRN Q8HRS PRN IV NAUSEA/VOMITING; Start 10/23/16 at 22:00 Albuterol Sulfate 2.5 mg 2.5 mg PRN Q4HRS PRN NEB SHORTNESS OF BREATH; Start at 22:00 Sodium Chloride (Iv Sodium Chloride 0.9% 500ml Bag) 500 ml @ 500 mls/hr 1X ONCE IV Last administered on 10/23/16 22:34; Start 10/23/16 at 22:30; Stop at 23:29; Status DC Pneumococcal Polyvalent Vaccine (Do NOT chart on this placeholder) 1 each PRN DAILY PRN [facility] UNABLE TO RESPOND; Start 10/24/16 at 00:15; Status Cancel Dextrose (Dextrose 50%-Water Syringe) 12.5 gm PRN Q15MIN PRN IV SEE COMMENTS Last administered on 10/25/16 21:40; Start 10/24/16 at 01:15 Dextrose (Dextrose 50%-Water Syringe) 25 gm STK-MED ONCE IV ; Start 10/24/16 at 01:05; Stop 10/24/16 at 01:06; Status DC Metoprolol Tartrate (Lopressor) 12.5 mg BID PO Last administered on 10/25/16 21:06; Start 10/24/16 at 09:30; Stop 10/26/16 at 12:27; Status DC Acetaminophen (Tylenol) 650 mg PRN Q4HRS PRN PO PAIN; Start 10/24/16 at 10:45 Allopurinol (Zyloprim) 100 mg DAILY PO Last administered on 10/27/16 08:06; Start 10/24/16 at 11:00 Atorvastatin Calcium (Lipitor) 10 mg DAILY PO Last administered on 10/24/16 13 :52; Start 10/24/16 at 11:00; Stop 10/25/16 at 14:11; Status DC Calcium Acetate (Phoslo) 1,334 mg TIDWMEALS PO Last administered on 10/27/16 08 :05; Start 10/24/16 at 12:00 Diphenhydramine HCl (Benadryl) 25 mg PRN Q4HRS PRN PO ITCHING; Start 10/24/16 at 10:45 Famotidine (Pepcid) 20 mg DAILY PO Last administered on 10/27/16 08:06; Start 10/24/16 at 11:00 Fentanyl (Duragesic 50mcg/ Hr Patch) 1 patch Q72H TD Last administered on 13:54; Start 10/24/16 at 11:00 Ferrous Sulfate (Feosol) 325 mg DAILY PO Last administered on 10/27/16 08:05; Start 10/24/16 at 11:00 Folic Acid (Folic Acid) 1 mg DAILY PO Last administered on 10/27/16 08:05; Start 10/24/16 at 11:00 Levothyroxine Sodium (Synthroid) 75 mcg DAILYAC PO Last administered on 08:04; Start 10/25/16 at 07:30 Midodrine (Proamatine) 2.5 mg PRN TID PRN PO BLOOD PRESSURE; Start 10/24/16 at 10:45 Midodrine (Proamatine) 5 mg [id number] PO Last administered on 10/27/16 08:06; Start 10/24/16 at 14:00 Sodium Bicarbonate (Sodium Bicarbonate) 650 mg BID PO Last administered on 08:05; Start 10/24/16 at 11:00 Calcium/Vitamin D (Oscal D 500mg/ 200uts) 1 tab TID PO Last administered on 10/27 08:05; Start 10/24/16 at 14:00 Non-Formulary Medication 500 mg QID PO ; Start 10/24/16 at 13:00; Stop 10/24/16 at 13:00; Status DC Glucagon (Glucagen) 1 mg 1X PRN IM [id number]; Start 10/24/16 at 11:00 Insulin Aspart (Novolog) 3 units TIDAC SQ ; Start 10/24/16 at 11:30; Stop at 11:36; Status DC Lactobacillus Acidophilus (Bacid, Lou-Bid) 2 tab DAILY PO Last administered on 10/27/16 08:04; Start 10/24/16 at 11:00 Oxycodone HCl (Roxicodone) 5 mg PRN Q4HRS PRN PO PAIN Last administered on 10/25 21:07; Start 10/24/16 at 11:15 Potassium Chloride (Klor-Con) 10 meq [id number] PO Last administered on 08:05; Start 10/24/16 at 11:00 Vancomycin HCl 125 mg Q6HRS PO Last administered on 10/26/16 06:14; Start 10/24 at 12:00; Stop 10/26/16 at 11:21; Status DC Piperacillin Sod/ Tazobactam Sod 1 each 1 each PRN DAILY PRN MC SEE COMMENTS; Start 10/24/16 at 10:45; Stop 10/26/16 at 13:22; Status DC Vancomycin HCl 1.5 gm/Sodium Chloride 500 ml @ 250 mls/hr 1X ONCE IV ; Start 10/24/16 at 11:15; Stop 10/24/16 at 11:15; Status DC Piperacillin Sod/ Tazobactam Sod/ Sodium Chloride (Zosyn/Iv Sodium Chloride 0.9 % 50ml) 50 ml @ 100 mls/hr Q6HRS IV Last administered on 10/26/16 12:39; Start 10/24/16 at 12:00; Stop 10/26/16 at 13:23; Status DC Insulin Aspart (Novolog) 3 units TIDAC SQ ; Start 10/24/16 at 11:35; Stop at 07:44; Status DC Heparin Sodium (Porcine) 5000 unit 5,000 unit Q8HRS SQ Last administered on 06:09; Start 10/24/16 at 22:00; Stop 10/25/16 at 14:04; Status DC Amino Acids/ Glycerin/ Electrolytes (Procalamine) 1,000 ml @ 40 mls/hr Q24H IV Last administered on 10/26/16 04:09; Start 10/24/16 at 17:15; Stop 10/26/16 at 10:57; Status DC Dextrose (Dextrose 50%-Water Syringe) 25 gm PRN Q1HR PRN IV SEE COMMENTS Last administered on 10/26/16 08:54; Start 10/24/16 at 17:15 Glucose (Insta-Glucose) 15 gm STK-MED ONCE .ROUTE ; Start 10/24/16 at 17:44; Stop 10/24/16 at 17:45; Status DC Glucose (Insta-Glucose) 15 gm PRN Q15MIN PRN PO LOW BLOOD SUGAR Last administered on 10/24/16 17:50; Start 10/24/16 at 18:00 Sodium Polystyrene Sulfonate 15 gm 15 gm 1X ONCE PO ; Start 10/25/16 at 07:00; Stop 10/25/16 at 07:01; Status DC Magnesium Sulfate/ Dextrose (Magnesium Sulfate PREMIX 2GM) 50 ml @ 25 mls/hr PRN DAILY PRN IV for Mag < 1.7 on am labs; Start 10/25/16 at 07:30 Calcium Gluconate 1000 mg 1,000 mg Q2H IVP Last administered on 10/25/16 17:11 ; Start 10/25/16 at 07:30; Stop 10/25/16 at 11:31; Status DC Albumin Human 100 ml @ 100 mls/hr 1X ONCE IV Last administered on 10/25/16 08:32; Start 10/25/16 at 08:30; Stop 10/25/16 at 09:29; Status DC Albumin Human (Albuminar) 50 ml @ 50 mls/hr 1X ONCE IV Last administered on 08:30; Start 10/25/16 at 08:30; Stop 10/25/16 at 09:29; Status DC Info (PHARMACY MONITORING -- do not chart) 1 each PRN DAILY PRN MC SEE COMMENTS ; Start 10/25/16 at 08:45 Info 1 each 1 each PRN DAILY PRN MC SEE COMMENTS; Start 10/25/16 at 08:45; Status Cancel Sodium Chloride 1,000 ml @ 1,000 mls/hr Q1H PRN IV hypotension; Start 10/25/16 at 08:54; Stop 10/25/16 at 14:53; Status DC Albumin Human (Albuminar) 200 ml @ 200 mls/hr 1X PRN PRN IV Hypotension Last administered on 10/25/16 09:08; Start 10/25/16 at 09:00; Stop 10/25/16 at 14:59 ; Status DC Sodium Chloride (Normal Saline Flush) 10 ml 1X PRN PRN IV AP catheter pack; Start 10/25/16 at 09:00; Stop 10/26/16 at 08:59; Status DC Sodium Chloride (Normal Saline Flush) 10 ml 1X PRN PRN IV PIGGYBACK CLERK catheter pack; Start 10/25/16 at 09:00; Stop 10/26/16 at 08:59; Status DC Info (PHARMACY MONITORING -- do not chart) 1 each PRN DAILY PRN MC SEE COMMENTS ; Start 10/25/16 at 09:00; Status Cancel Info (PHARMACY MONITORING -- do not chart) 1 each PRN DAILY PRN MC SEE COMMENTS ; Start 10/25/16 at 09:00; Stop 10/26/16 at 11:18; Status DC Atorvastatin Calcium (Lipitor) 10 mg QHS PO ; Start 10/26/16 at 21:00 Dextrose 25 gm 25 gm 1X ONCE IV Last administered on 10/25/16 22:00; Start at 22:15; Stop 10/25/16 at 22:16; Status DC Dextrose 1,000 ml @ 80 mls/hr [id number] IV Last administered on 10/27/16 00:15; Start 10/26/16 at 11:00 Vancomycin HCl 125 mg 125 mg BID PO Last administered on 10/27/16 08:23; Start 10/26/16 at 21:00 Ampicillin Sodium/ Sulbactam Sodium 1.5 gm/Sodium Chloride 50 ml @ 100 mls/hr Q6HRS IV Last administered on 10/27/16 06:28; Start 10/26/16 at 18:00 Sodium Chloride 1,000 ml @ 1,000 mls/hr Q1H PRN IV hypotension; Start 10/27/16 at 10:11; Stop 10/27/16 at 16:10 Albumin Human (Albuminar) 200 ml @ 200 mls/hr 1X PRN PRN IV Hypotension; Start 10/27/16 at 10:15; Stop 10/27/16 at 16:14 Diphenhydramine HCl (Benadryl) 25 mg 1X PRN PRN IV ITCHING; Start 10/27/16 at 10 :15; Stop 10/28/16 at 10:14 Diphenhydramine HCl 25 mg 25 mg 1X PRN PRN IV ITCHING; Start 10/27/16 at 10:15; Stop 10/28/16 at 10:14 Sodium Chloride (Iv Sodium Chloride 0.9% 1000ml Bag) 1,000 ml @ 400 mls/hr Q2H30M PRN IV PATENCY; Start 10/27/16 at 10:11; Stop 10/27/16 at 22:10 Info (PHARMACY MONITORING -- do not chart) 1 each PRN DAILY PRN MC SEE COMMENTS ; Start 10/27/16 at 10:15 Active Scripts Active Midodrine Hcl 2.5 Mg Tablet 2.5 Mg PO PRN TID PRN Reported Gluco Burst (Dextrose) 37.5 Gm Gel..gram. 37.5 Gm PO PRN Glucagon Emergency Kit (Glucagon,Human Recombinant) 1 Mg Kit 1 Mg IM PRN Ferrous Sulfate 325 Mg Tablet 1 Tab PO DAILY DURAGESIC 50mcg/hr (Fentanyl) 1 Each Patch.td72 1 Patch TD Q72H Benadryl (Diphenhydramine Hcl) 25 Mg Capsule 25 Mg PO PRN Q4HRS PRN Midodrine Hcl 5 Mg Tablet 5 Mg PO BID Sodium Bicarbonate 650 Mg Tablet 650 Mg PO BID Potassium Chloride 10 Meq Tablet.er 10 Meq PO DAILY Keflex (Cephalexin) 500 Mg Capsule 500 Mg PO QID Humalog Kwikpen (Insulin Lispro) 200 Unit/1 Ml Insuln.pen 3 Unit SQ TIDAC Famotidine 20 Mg Tablet 20 Mg PO DAILY Oxycodone Hcl 15 Mg Tablet 1 Tab PO PRN Q4HRS PRN Phoslo (Calcium Acetate) 667 Mg Capsule 2 Cap PO TIDWMEALS Allopurinol 100 Mg Tablet 1 Tab PO DAILY Oyster Shell Calcium-Vit D Tab (Calcium Carbonate/Vitamin D2) 1 Each Tablet 1 Each PO TID Acidophilus Lactobacillus (Lactobacillus Acidophilus) 1 Each Capsule 1 Each PO DAILY Acetaminophen 325 Mg Tablet 650 Mg PO PRN Q4HRS PRN Atorvastatin Calcium 10 Mg Tablet 1 Tab PO DAILY Folic Acid 1 Mg Tablet 1 Mg PO DAILY Levothyroxine Sodium 25 Mcg Tablet 75 Mcg PO DAILYAC Vitals/I & O Vital Sign - Last 24 Hours 10/26/16 10/26/16 10/26/16 10/26/16 11:00 12:00 13:00 14:00 Temp 94.4 96.0 94.4 96.0 Pulse 75 75 74 80 Resp 15 7 12 10 B/P 107/87 119/88 108/85 108/83 Pulse Ox 98 100 100 92 O2 Delivery Nasal Cannula Nasal Cannula Nasal Cannula Room Air O2 Flow Rate 2.0 2.0 2.0 10/26/16 10/26/16 10/26/16 10/26/16 15:00 16:00 17:00 18:00 Temp 96.6 96.6 Pulse 77 81 78 88 Resp 05 07 11 14 B/P 105/80 102/87 111/86 111/90 Pulse Ox 94 94 95 93 O2 Delivery Room Air Room Air Room Air Room Air 10/26/16 10/26/16 10/26/16 10/26/16 19:00 20:00 20:00 21:00 Temp 98.2 98.2 Pulse 82 84 86 Resp 14 16 14 B/P 123/95 122/93 112/94 Pulse Ox 95 95 93 O2 Delivery Room Air Room Air Room Air Room Air 10/26/16 10/26/16 10/27/16 10/27/16 22:00 23:00 00:00 00:00 Pulse 82 78 78 Resp 11 06 12 B/P 107/88 113/82 119/85 Pulse Ox 97 96 96 O2 Delivery Room Air Room Air Room Air Room Air 10/27/16 10/27/16 10/27/16 10/27/16 01:00 02:00 03:00 04:00 Temp 97.4 97.4 Pulse 74 78 76 73 Resp 06 08 13 17 B/P 104/79 114/88 107/83 116/91 Pulse Ox 94 94 93 97 O2 Delivery Room Air Room Air Room Air Room Air 10/27/16 10/27/16 10/27/16 10/27/16 04:00 05:00 06:00 07:00 Temp 97.1 97.1 Pulse 72 76 94 Resp 15 12 B/P 108/86 120/92 112/94 Pulse Ox 94 93 O2 Delivery Room Air Room Air Room Air Room Air O2 Flow Rate 94.0 10/27/16 10/27/16 10/27/16 10/27/16 08:00 08:00 08:06 09:40 Temp 97.1 97.1 97.1 97.1 Pulse 94 94 72 Resp 16 B/P 112/94 112/94 129/89 Pulse Ox 93 O2 Delivery Room Air Room Air Room Air O2 Flow Rate 94.0 94.0 10/27/16 10:01 Temp 97.1 97.1 Pulse 72 B/P 129/89 Pulse Ox 93 O2 Delivery Room Air O2 Flow Rate 94.0 Intake and Output 10/26/16 10/26/16 10/27/16 15:00 23:00 07:00 Intake Total 153 ml 150 ml 220 ml Output Total 0 ml Balance 153 ml 150 ml 220 ml Problem List Problems Medical Problems: (1) Ascites Status: Acute (2) ESRD (end stage renal disease) on dialysis Status: Acute (3) SVT (supraventricular tachycardia) Status: Acute (4) Syncope Status: Acute Assessment Acinetobacter sepsis, improved. Ascites, recurrent. Plan of Care: Continue current Tx, Mgmt Plan of Care Note When feasible, paracentesis again. BANDAR PACHECO MD October 27, 2016 10:55
--- NOTE | 2016-10-27 10:59 | PDOC ---
Dialysis Progress Note Dialysis Note Dialysis Note Seen on Hemodialysis, tolerating treatment Okay Vitals on Hemodialysis: 98/[address] on monitor General Appearance: Awake: Alert Oriented x ? Neck: No JVD or JVP Chest: CTA [place] Heart: S1 S2 Abdomen - Soft NT distended Extremities - Tr Edema ESRD : Dialysis as below F 180 NR 3.0 Hrs 2 K 2.5 Ca 140 Na 35 HC03 Qb 350 + Qd 500+ Heparin 0 Units Uf 0 Kgs or to dry weight as tolerated - may leave 1L +ve on fluids if needed for hemodynamics if Alb is not enough May give 25-50 gms of 25% Albumin if needed to maintain Hemodynamic stability Treatment plan reviewed and discussed with hand brush filler Vitals Vital Signs Vital Signs Date Time Temp Pulse Resp B/P Pulse Ox O2 Delivery O2 Flow Rate FiO2 10/27/16 10:01 97.1 72 129/89 93 Room Air 94.0 97.1 10/27/16 09:40 16 Labs Last Labs Laboratory Tests Test 10/25/16 11:29 10/25/16 11:40 10/25/16 12:02 10/25/16 16:40 Glucose (Fingerstick) 24mg/dL (70-99) 88mg/dL (70-99) 19mg/dL (70-99) Potassium Level 4.0mmol/L (3.5-5.1) Glucose Level 32mg/dL (70-99) Test 10/25/16 16:46 10/25/16 17:08 10/25/16 20:45 10/25/16 21:10 Glucose Level 36mg/dL (70-99) 45mg/dL (70-99) Glucose (Fingerstick) 107mg/dL (70-99) 40mg/dL (70-99) Test 10/25/16 21:39 10/25/16 22:35 10/26/16 01:30 10/26/16 02:06 Glucose (Fingerstick) 72mg/dL (70-99) 170mg/dL (70-99) 66mg/dL (70-99) 143mg/dL (70-99) Test 10/26/16 04:06 10/26/16 06:10 10/26/16 06:15 10/26/16 06:43 Glucose (Fingerstick) 75mg/dL (70-99) 37mg/dL (70-99) 126mg/dL (70-99) White Blood Count 8.4x10^3/uL (4.0-11.0) Red Blood Count 4.05x10^6/uL (4.30-5.70) Hemoglobin 11.6g/dL (13.0-17.5) Hematocrit 36.5% (39.0-53.0) Mean Corpuscular Volume 90fL (79-100) Mean Corpuscular Hemoglobin 29pg (25-35) Mean Corpuscular Hemoglobin Concent 32g/dL (31-37) Red Cell Distribution Width 18.0% (11.5-14.5) Platelet Count 19x10^3/uL (140-400) Neutrophils (%) (Auto) 87% (31-73) Lymphocytes (%) (Auto) 6% (24-48) Monocytes (%) (Auto) 6% (0-9) Eosinophils (%) (Auto) 1% (0-3) Basophils (%) (Auto) 0% (0-3) Neutrophils # (Auto) 7.3x10^3uL (1.8-7.7) Lymphocytes # (Auto) 0.5x10^3/uL (1.0-4.8) Monocytes # (Auto) 0.5x10^3/uL (0.0-1.1) Eosinophils # (Auto) 0.0x10^3/uL (0.0-0.7) Basophils # (Auto) 0.0x10^3/uL (0.0-0.2) Sodium Level 136mmol/L (136-145) Potassium Level 5.1mmol/L (3.5-5.1) Chloride Level 100mmol/L (98-107) Carbon Dioxide Level 30mmol/L (21-32) Anion Gap 6 (6-14) Blood Urea Nitrogen 55mg/dL (8-26) Creatinine 4.5mg/dL (0.7-1.3) Estimated GFR (Cockcroft-Gault) 16.4 Glucose Level 43mg/dL (70-99) Calcium Level 7.4mg/dL (8.5-10.1) Phosphorus Level 4.9mg/dL (2.6-4.7) Magnesium Level 1.7mg/dL (1.8-2.4) Albumin 2.0g/dL (3.4-5.0) Cortisol AM Sample 31.2ug/dL (6.2-19.4) Test 10/26/16 07:45 10/26/16 08:38 10/26/16 09:51 10/26/16 12:06 Nasal Screen MRSA (PCR) Negative (Negative) Glucose (Fingerstick) 65mg/dL (70-99) 133mg/dL (70-99) 101mg/dL (70-99) Test 10/26/16 16:35 10/26/16 21:18 10/27/16 03:48 10/27/16 05:35 Glucose (Fingerstick) 102mg/dL (70-99) 153mg/dL (70-99) 139mg/dL (70-99) White Blood Count 10.1x10^3/uL (4.0-11.0) Red Blood Count 4.03x10^6/uL (4.30-5.70) Hemoglobin 11.5g/dL (13.0-17.5) Hematocrit 35.2% (39.0-53.0) Mean Corpuscular Volume 87fL (79-100) Mean Corpuscular Hemoglobin 29pg (25-35) Mean Corpuscular Hemoglobin Concent 33g/dL (31-37) Red Cell Distribution Width 17.7% (11.5-14.5) Platelet Count 22x10^3/uL (140-400) Neutrophils (%) (Auto) 88% (31-73) Lymphocytes (%) (Auto) 5% (24-48) Monocytes (%) (Auto) 5% (0-9) Eosinophils (%) (Auto) 1% (0-3) Basophils (%) (Auto) 0% (0-3) Neutrophils # (Auto) 8.9x10^3uL (1.8-7.7) Lymphocytes # (Auto) 0.5x10^3/uL (1.0-4.8) Monocytes # (Auto) 0.5x10^3/uL (0.0-1.1) Eosinophils # (Auto) 0.1x10^3/uL (0.0-0.7) Basophils # (Auto) 0.0x10^3/uL (0.0-0.2) Sodium Level 133mmol/L (136-145) Potassium Level 5.0mmol/L (3.5-5.1) Chloride Level 97mmol/L (98-107) Carbon Dioxide Level 28mmol/L (21-32) Anion Gap 8 (6-14) Blood Urea Nitrogen 65mg/dL (8-26) Creatinine 5.1mg/dL (0.7-1.3) Estimated GFR (Cockcroft-Gault) 14.2 Glucose Level 138mg/dL (70-99) Calcium Level 6.9mg/dL (8.5-10.1) Phosphorus Level 5.5mg/dL (2.6-4.7) Magnesium Level 1.7mg/dL (1.8-2.4) Albumin 1.9g/dL (3.4-5.0) Test 10/27/16 10:14 Glucose (Fingerstick) 126mg/dL (70-99) Laboratory Tests Test 10/26/16 12:06 10/26/16 16:35 10/26/16 21:18 10/27/16 03:48 Glucose (Fingerstick) 101mg/dL (70-99) 102mg/dL (70-99) 153mg/dL (70-99) 139mg/dL (70-99) Test 10/27/16 05:35 10/27/16 10:14 White Blood Count 10.1x10^3/uL (4.0-11.0) Red Blood Count 4.03x10^6/uL (4.30-5.70) Hemoglobin 11.5g/dL (13.0-17.5) Hematocrit 35.2% (39.0-53.0) Mean Corpuscular Volume 87fL (79-100) Mean Corpuscular Hemoglobin 29pg (25-35) Mean Corpuscular Hemoglobin Concent 33g/dL (31-37) Red Cell Distribution Width 17.7% (11.5-14.5) Platelet Count 22x10^3/uL (140-400) Neutrophils (%) (Auto) 88% (31-73) Lymphocytes (%) (Auto) 5% (24-48) Monocytes (%) (Auto) 5% (0-9) Eosinophils (%) (Auto) 1% (0-3) Basophils (%) (Auto) 0% (0-3) Neutrophils # (Auto) 8.9x10^3uL (1.8-7.7) Lymphocytes # (Auto) 0.5x10^3/uL (1.0-4.8) Monocytes # (Auto) 0.5x10^3/uL (0.0-1.1) Eosinophils # (Auto) 0.1x10^3/uL (0.0-0.7) Basophils # (Auto) 0.0x10^3/uL (0.0-0.2) Sodium Level 133mmol/L (136-145) Potassium Level 5.0mmol/L (3.5-5.1) Chloride Level 97mmol/L (98-107) Carbon Dioxide Level 28mmol/L (21-32) Anion Gap 8 (6-14) Blood Urea Nitrogen 65mg/dL (8-26) Creatinine 5.1mg/dL (0.7-1.3) Estimated GFR (Cockcroft-Gault) 14.2 Glucose Level 138mg/dL (70-99) Calcium Level 6.9mg/dL (8.5-10.1) Phosphorus Level 5.5mg/dL (2.6-4.7) Magnesium Level 1.7mg/dL (1.8-2.4) Albumin 1.9g/dL (3.4-5.0) Glucose (Fingerstick) 126mg/dL (70-99) Assessment Assessment Problems Medical Problems: (1) Ascites Status: Acute (2) ESRD (end stage renal disease) on dialysis Status: Acute (3) SVT (supraventricular tachycardia) Status: Acute (4) Syncope Status: Acute Problems: Plan Plan of Care Problems Medical Problems: (1) Ascites Status: Acute (2) ESRD (end stage renal disease) on dialysis Status: Acute (3) SVT (supraventricular tachycardia) Status: Acute (4) Syncope Status: Acute CELINA CLIFTON MD October 27, 2016 10:59
[2016-10-27] MEDS: fentaNYL 50MCG/HR PATCH 1 PATCH PATCH.TD72 TD SCH (11:49)
--- NOTE | 2016-10-27 12:28 | PDOC ---
PROGRESS NOTES Chief Complaint Chief Complaint cc: ? syncopal episode, SVT, ESRD, chronic hypotension ESRD, on HD anemia of chronic disease chronic diastolic heart failure DM type II GERD hyperlipidemia hypertension, hypothyroidism hepatitis cirrhosis with chronic ascites gout cardiomyopathy prior C. diff. History of Present Illness History of Present Illness Patient was in bed receiving dialysis and tolerating well. Discussed with nurse about consulting heme/onc in regards to pt's thrombocytopenia - pt's HD catheter might be possible source of infection but removing might result in uncontrolled bleeding d/t low platelets. Also discussed with nurse need for therapeutic paracentesis d/t ascites but again there is the risk as stated above. Vitals Vitals Vital Signs Date Time Temp Pulse Resp B/P Pulse Ox O2 Delivery O2 Flow Rate FiO2 10/27/16 11:49 16 99 Room Air 10/27/16 11:00 97.1 87 87/67 97.1 10/27/16 10:01 94.0 Physical Exam General: Alert (responds to voice. unable to follow all commands. ), Cooperative, No acute distress, Other (emiaciated. temporal wasting ) Heart: Normal S1, Other (tachycardia, on midorinine gtt. ) Lungs: Clear, Other (diminished inspiratory effort. negative chest retractions and/or accessory muscle use. ) Abdomen: Soft, No tenderness, Other (chronic ascites. negative peritoneal signs. ) Extremities: No cyanosis, Other (+2 pitting edema bilaterally. peripheral pulses 2/4 bilaterally. ) Skin: Other (Left ankle ulcer. Right shoulder ulcer. dressing placed. ) Labs LABS Laboratory Tests Test 10/26/16 16:35 10/26/16 21:18 10/27/16 03:48 10/27/16 05:35 Glucose (Fingerstick) 102mg/dL (70-99) 153mg/dL (70-99) 139mg/dL (70-99) White Blood Count 10.1x10^3/uL (4.0-11.0) Red Blood Count 4.03x10^6/uL (4.30-5.70) Hemoglobin 11.5g/dL (13.0-17.5) Hematocrit 35.2% (39.0-53.0) Mean Corpuscular Volume 87fL (79-100) Mean Corpuscular Hemoglobin 29pg (25-35) Mean Corpuscular Hemoglobin Concent 33g/dL (31-37) Red Cell Distribution Width 17.7% (11.5-14.5) Platelet Count 22x10^3/uL (140-400) Neutrophils (%) (Auto) 88% (31-73) Lymphocytes (%) (Auto) 5% (24-48) Monocytes (%) (Auto) 5% (0-9) Eosinophils (%) (Auto) 1% (0-3) Basophils (%) (Auto) 0% (0-3) Neutrophils # (Auto) 8.9x10^3uL (1.8-7.7) Lymphocytes # (Auto) 0.5x10^3/uL (1.0-4.8) Monocytes # (Auto) 0.5x10^3/uL (0.0-1.1) Eosinophils # (Auto) 0.1x10^3/uL (0.0-0.7) Basophils # (Auto) 0.0x10^3/uL (0.0-0.2) Sodium Level 133mmol/L (136-145) Potassium Level 5.0mmol/L (3.5-5.1) Chloride Level 97mmol/L (98-107) Carbon Dioxide Level 28mmol/L (21-32) Anion Gap 8 (6-14) Blood Urea Nitrogen 65mg/dL (8-26) Creatinine 5.1mg/dL (0.7-1.3) Estimated GFR (Cockcroft-Gault) 14.2 Glucose Level 138mg/dL (70-99) Calcium Level 6.9mg/dL (8.5-10.1) Phosphorus Level 5.5mg/dL (2.6-4.7) Magnesium Level 1.7mg/dL (1.8-2.4) Albumin 1.9g/dL (3.4-5.0) Test 10/27/16 10:14 10/27/16 11:44 Glucose (Fingerstick) 126mg/dL (70-99) 124mg/dL (70-99) Review of Systems Review of Systems Denies chest pain Denies N/V/D Assessment and Plan Assessmemt and Plan Problems Medical Problems: (1) Ascites Status: Acute (2) ESRD (end stage renal disease) on dialysis Status: Acute (3) SVT (supraventricular tachycardia) Status: Acute (4) Syncope Status: Acute Assessment Gram variable rods sepsis POA. Acinetobacter Thrombocytopenia Bandemia H/o recent c. diff CKD on HD Cirrhosis of liver w/ refractory ascites DM with hypoglycemia Debility SVT Plan Consult heme/onc in regards to pt's thrombocytopenia and need to remove HD cath and paracentesis Continue albumin 25% prn when BP drops per Dr. Landaverde Continue abx for gram variable keanu sepsis - following ID Continue DM meds Continue dialysis per nephrology Check labs in am Appreciate subspecialty input Problems: Comment Review of Relevant I have reviewed the following items дмитрий (where applicable) has been applied. Labs Laboratory Tests Test 10/25/16 16:40 10/25/16 16:46 10/25/16 17:08 10/25/16 20:45 Glucose (Fingerstick) 19mg/dL (70-99) 107mg/dL (70-99) 40mg/dL (70-99) Glucose Level 36mg/dL (70-99) Test 10/25/16 21:10 10/25/16 21:39 10/25/16 22:35 10/26/16 01:30 Glucose Level 45mg/dL (70-99) Glucose (Fingerstick) 72mg/dL (70-99) 170mg/dL (70-99) 66mg/dL (70-99) Test 10/26/16 02:06 10/26/16 04:06 10/26/16 06:10 10/26/16 06:15 Glucose (Fingerstick) 143mg/dL (70-99) 75mg/dL (70-99) 37mg/dL (70-99) White Blood Count 8.4x10^3/uL (4.0-11.0) Red Blood Count 4.05x10^6/uL (4.30-5.70) Hemoglobin 11.6g/dL (13.0-17.5) Hematocrit 36.5% (39.0-53.0) Mean Corpuscular Volume 90fL (79-100) Mean Corpuscular Hemoglobin 29pg (25-35) Mean Corpuscular Hemoglobin Concent 32g/dL (31-37) Red Cell Distribution Width 18.0% (11.5-14.5) Platelet Count 19x10^3/uL (140-400) Neutrophils (%) (Auto) 87% (31-73) Lymphocytes (%) (Auto) 6% (24-48) Monocytes (%) (Auto) 6% (0-9) Eosinophils (%) (Auto) 1% (0-3) Basophils (%) (Auto) 0% (0-3) Neutrophils # (Auto) 7.3x10^3uL (1.8-7.7) Lymphocytes # (Auto) 0.5x10^3/uL (1.0-4.8) Monocytes # (Auto) 0.5x10^3/uL (0.0-1.1) Eosinophils # (Auto) 0.0x10^3/uL (0.0-0.7) Basophils # (Auto) 0.0x10^3/uL (0.0-0.2) Sodium Level 136mmol/L (136-145) Potassium Level 5.1mmol/L (3.5-5.1) Chloride Level 100mmol/L (98-107) Carbon Dioxide Level 30mmol/L (21-32) Anion Gap 6 (6-14) Blood Urea Nitrogen 55mg/dL (8-26) Creatinine 4.5mg/dL (0.7-1.3) Estimated GFR (Cockcroft-Gault) 16.4 Glucose Level 43mg/dL (70-99) Calcium Level 7.4mg/dL (8.5-10.1) Phosphorus Level 4.9mg/dL (2.6-4.7) Magnesium Level 1.7mg/dL (1.8-2.4) Albumin 2.0g/dL (3.4-5.0) Cortisol AM Sample 31.2ug/dL (6.2-19.4) Test 10/26/16 06:43 10/26/16 07:45 10/26/16 08:38 10/26/16 09:51 Glucose (Fingerstick) 126mg/dL (70-99) 65mg/dL (70-99) 133mg/dL (70-99) Nasal Screen MRSA (PCR) Negative (Negative) Test 10/26/16 12:06 10/26/16 16:35 10/26/16 21:18 10/27/16 03:48 Glucose (Fingerstick) 101mg/dL (70-99) 102mg/dL (70-99) 153mg/dL (70-99) 139mg/dL (70-99) Test 10/27/16 05:35 10/27/16 10:14 10/27/16 11:44 White Blood Count 10.1x10^3/uL (4.0-11.0) Red Blood Count 4.03x10^6/uL (4.30-5.70) Hemoglobin 11.5g/dL (13.0-17.5) Hematocrit 35.2% (39.0-53.0) Mean Corpuscular Volume 87fL (79-100) Mean Corpuscular Hemoglobin 29pg (25-35) Mean Corpuscular Hemoglobin Concent 33g/dL (31-37) Red Cell Distribution Width 17.7% (11.5-14.5) Platelet Count 22x10^3/uL (140-400) Neutrophils (%) (Auto) 88% (31-73) Lymphocytes (%) (Auto) 5% (24-48) Monocytes (%) (Auto) 5% (0-9) Eosinophils (%) (Auto) 1% (0-3) Basophils (%) (Auto) 0% (0-3) Neutrophils # (Auto) 8.9x10^3uL (1.8-7.7) Lymphocytes # (Auto) 0.5x10^3/uL (1.0-4.8) Monocytes # (Auto) 0.5x10^3/uL (0.0-1.1) Eosinophils # (Auto) 0.1x10^3/uL (0.0-0.7) Basophils # (Auto) 0.0x10^3/uL (0.0-0.2) Sodium Level 133mmol/L (136-145) Potassium Level 5.0mmol/L (3.5-5.1) Chloride Level 97mmol/L (98-107) Carbon Dioxide Level 28mmol/L (21-32) Anion Gap 8 (6-14) Blood Urea Nitrogen 65mg/dL (8-26) Creatinine 5.1mg/dL (0.7-1.3) Estimated GFR (Cockcroft-Gault) 14.2 Glucose Level 138mg/dL (70-99) Calcium Level 6.9mg/dL (8.5-10.1) Phosphorus Level 5.5mg/dL (2.6-4.7) Magnesium Level 1.7mg/dL (1.8-2.4) Albumin 1.9g/dL (3.4-5.0) Glucose (Fingerstick) 126mg/dL (70-99) 124mg/dL (70-99) Laboratory Tests Test 10/26/16 16:35 10/26/16 21:18 10/27/16 03:48 10/27/16 05:35 Glucose (Fingerstick) 102mg/dL (70-99) 153mg/dL (70-99) 139mg/dL (70-99) White Blood Count 10.1x10^3/uL (4.0-11.0) Red Blood Count 4.03x10^6/uL (4.30-5.70) Hemoglobin 11.5g/dL (13.0-17.5) Hematocrit 35.2% (39.0-53.0) Mean Corpuscular Volume 87fL (79-100) Mean Corpuscular Hemoglobin 29pg (25-35) Mean Corpuscular Hemoglobin Concent 33g/dL (31-37) Red Cell Distribution Width 17.7% (11.5-14.5) Platelet Count 22x10^3/uL (140-400) Neutrophils (%) (Auto) 88% (31-73) Lymphocytes (%) (Auto) 5% (24-48) Monocytes (%) (Auto) 5% (0-9) Eosinophils (%) (Auto) 1% (0-3) Basophils (%) (Auto) 0% (0-3) Neutrophils # (Auto) 8.9x10^3uL (1.8-7.7) Lymphocytes # (Auto) 0.5x10^3/uL (1.0-4.8) Monocytes # (Auto) 0.5x10^3/uL (0.0-1.1) Eosinophils # (Auto) 0.1x10^3/uL (0.0-0.7) Basophils # (Auto) 0.0x10^3/uL (0.0-0.2) Sodium Level 133mmol/L (136-145) Potassium Level 5.0mmol/L (3.5-5.1) Chloride Level 97mmol/L (98-107) Carbon Dioxide Level 28mmol/L (21-32) Anion Gap 8 (6-14) Blood Urea Nitrogen 65mg/dL (8-26) Creatinine 5.1mg/dL (0.7-1.3) Estimated GFR (Cockcroft-Gault) 14.2 Glucose Level 138mg/dL (70-99) Calcium Level 6.9mg/dL (8.5-10.1) Phosphorus Level 5.5mg/dL (2.6-4.7) Magnesium Level 1.7mg/dL (1.8-2.4) Albumin 1.9g/dL (3.4-5.0) Test 10/27/16 10:14 10/27/16 11:44 Glucose (Fingerstick) 126mg/dL (70-99) 124mg/dL (70-99) Microbiology 10/25/16 Blood Culture - Preliminary, Resulted NO GROWTH AFTER 2 DAYS Medications Current Medications Sodium Chloride 500 ml @ 250 mls/hr 1X ONCE IV Last administered on 16:24; Start 10/23/16 at 16:15; Stop 10/23/16 at 18:14; Status DC Sodium Chloride (Iv Sodium Chloride 0.9% 500ml Bag) 500 ml @ 250 mls/hr 1X ONCE IV Last administered on 10/23/16 17:15; Start 10/23/16 at 17:15; Stop at 19:14; Status DC Diltiazem HCl 5 mg 5 mg 1X ONCE IVP Last administered on 10/23/16 19:12; Start 10/23/16 at 18:45; Stop 10/23/16 at 18:49; Status DC Diltiazem HCl/ Dextrose (Cardizem) 125 ml @ 0 mls/hr 1X ONCE IV ; Start at 18:45; Stop 10/23/16 at 19:59; Status DC Digoxin (Lanoxin) 250 mcg 1X ONCE IV Last administered on 10/23/16 22:36; Start 10/23/16 at 20:00; Stop 10/23/16 at 20:01; Status DC Ondansetron HCl (Zofran) 4 mg PRN Q8HRS PRN IV NAUSEA/VOMITING; Start 10/23/16 at 20:15; Stop 10/23/16 at 22:04; Status DC Acetaminophen (Tylenol) 650 mg PRN Q4HRS PRN PO FEVER; Start 10/23/16 at 20:15 ; Stop 10/23/16 at 22:04; Status DC Acetaminophen (Tylenol) 325 mg PRN Q6HRS PRN PO MILD PAIN / TEMP; Start at 22:00; Stop 10/25/16 at 11:09; Status DC Acetaminophen/ Hydrocodone Bitart (Lortab 5/325) 1 tab PRN Q6HRS PRN PO MODERATE TO SEVERE PAIN; Start 10/23/16 at 22:00 Hydralazine HCl (Apresoline) 10 mg PRN Q4HRS PRN IVP ELEVATED BP, SEE COMMENTS ; Start 10/23/16 at 22:00 Ondansetron HCl (Zofran) 4 mg PRN Q8HRS PRN IV NAUSEA/VOMITING; Start 10/23/16 at 22:00 Albuterol Sulfate 2.5 mg 2.5 mg PRN Q4HRS PRN NEB SHORTNESS OF BREATH; Start at 22:00 Sodium Chloride (Iv Sodium Chloride 0.9% 500ml Bag) 500 ml @ 500 mls/hr 1X ONCE IV Last administered on 10/23/16 22:34; Start 10/23/16 at 22:30; Stop at 23:29; Status DC Pneumococcal Polyvalent Vaccine (Do NOT chart on this placeholder) 1 each PRN DAILY PRN [facility] UNABLE TO RESPOND; Start 10/24/16 at 00:15; Status Cancel Dextrose (Dextrose 50%-Water Syringe) 12.5 gm PRN Q15MIN PRN IV SEE COMMENTS Last administered on 10/25/16 21:40; Start 10/24/16 at 01:15 Dextrose (Dextrose 50%-Water Syringe) 25 gm STK-MED ONCE IV ; Start 10/24/16 at 01:05; Stop 10/24/16 at 01:06; Status DC Metoprolol Tartrate (Lopressor) 12.5 mg BID PO Last administered on 10/25/16 21:06; Start 10/24/16 at 09:30; Stop 10/26/16 at 12:27; Status DC Acetaminophen (Tylenol) 650 mg PRN Q4HRS PRN PO PAIN; Start 10/24/16 at 10:45 Allopurinol (Zyloprim) 100 mg DAILY PO Last administered on 10/27/16 08:06; Start 10/24/16 at 11:00 Atorvastatin Calcium (Lipitor) 10 mg DAILY PO Last administered on 10/24/16 13 :52; Start 10/24/16 at 11:00; Stop 10/25/16 at 14:11; Status DC Calcium Acetate (Phoslo) 1,334 mg TIDWMEALS PO Last administered on 10/27/16 08 :05; Start 10/24/16 at 12:00 Diphenhydramine HCl (Benadryl) 25 mg PRN Q4HRS PRN PO ITCHING; Start 10/24/16 at 10:45 Famotidine (Pepcid) 20 mg DAILY PO Last administered on 10/27/16 08:06; Start 10/24/16 at 11:00 Fentanyl (Duragesic 50mcg/ Hr Patch) 1 patch Q72H TD Last administered on 11:49; Start 10/24/16 at 11:00 Ferrous Sulfate (Feosol) 325 mg DAILY PO Last administered on 10/27/16 08:05; Start 10/24/16 at 11:00 Folic Acid (Folic Acid) 1 mg DAILY PO Last administered on 10/27/16 08:05; Start 10/24/16 at 11:00 Levothyroxine Sodium (Synthroid) 75 mcg DAILYAC PO Last administered on 08:04; Start 10/25/16 at 07:30 Midodrine (Proamatine) 2.5 mg PRN TID PRN PO BLOOD PRESSURE; Start 10/24/16 at 10:45 Midodrine (Proamatine) 5 mg [id number] PO Last administered on 10/27/16 08:06; Start 10/24/16 at 14:00 Sodium Bicarbonate (Sodium Bicarbonate) 650 mg BID PO Last administered on 08:05; Start 10/24/16 at 11:00 Calcium/Vitamin D (Oscal D 500mg/ 200uts) 1 tab TID PO Last administered on 10/27 08:05; Start 10/24/16 at 14:00 Non-Formulary Medication 500 mg QID PO ; Start 10/24/16 at 13:00; Stop 10/24/16 at 13:00; Status DC Glucagon (Glucagen) 1 mg 1X PRN IM [id number]; Start 10/24/16 at 11:00 Insulin Aspart (Novolog) 3 units TIDAC SQ ; Start 10/24/16 at 11:30; Stop at 11:36; Status DC Lactobacillus Acidophilus (Bacid, Lou-Bid) 2 tab DAILY PO Last administered on 10/27/16 08:04; Start 10/24/16 at 11:00 Oxycodone HCl (Roxicodone) 5 mg PRN Q4HRS PRN PO PAIN Last administered on 10/25 21:07; Start 10/24/16 at 11:15 Potassium Chloride (Klor-Con) 10 meq [id number] PO Last administered on 08:05; Start 10/24/16 at 11:00 Vancomycin HCl 125 mg Q6HRS PO Last administered on 10/26/16 06:14; Start 10/24 at 12:00; Stop 10/26/16 at 11:21; Status DC Piperacillin Sod/ Tazobactam Sod 1 each 1 each PRN DAILY PRN MC SEE COMMENTS; Start 10/24/16 at 10:45; Stop 10/26/16 at 13:22; Status DC Vancomycin HCl 1.5 gm/Sodium Chloride 500 ml @ 250 mls/hr 1X ONCE IV ; Start 10/24/16 at 11:15; Stop 10/24/16 at 11:15; Status DC Piperacillin Sod/ Tazobactam Sod/ Sodium Chloride (Zosyn/Iv Sodium Chloride 0.9 % 50ml) 50 ml @ 100 mls/hr Q6HRS IV Last administered on 10/26/16 12:39; Start 10/24/16 at 12:00; Stop 10/26/16 at 13:23; Status DC Insulin Aspart (Novolog) 3 units TIDAC SQ ; Start 10/24/16 at 11:35; Stop at 07:44; Status DC Heparin Sodium (Porcine) 5000 unit 5,000 unit Q8HRS SQ Last administered on 06:09; Start 10/24/16 at 22:00; Stop 10/25/16 at 14:04; Status DC Amino Acids/ Glycerin/ Electrolytes (Procalamine) 1,000 ml @ 40 mls/hr Q24H IV Last administered on 10/26/16 04:09; Start 10/24/16 at 17:15; Stop 10/26/16 at 10:57; Status DC Dextrose (Dextrose 50%-Water Syringe) 25 gm PRN Q1HR PRN IV SEE COMMENTS Last administered on 10/26/16 08:54; Start 10/24/16 at 17:15 Glucose (Insta-Glucose) 15 gm STK-MED ONCE .ROUTE ; Start 10/24/16 at 17:44; Stop 10/24/16 at 17:45; Status DC Glucose (Insta-Glucose) 15 gm PRN Q15MIN PRN PO LOW BLOOD SUGAR Last administered on 10/24/16 17:50; Start 10/24/16 at 18:00 Sodium Polystyrene Sulfonate 15 gm 15 gm 1X ONCE PO ; Start 10/25/16 at 07:00; Stop 10/25/16 at 07:01; Status DC Magnesium Sulfate/ Dextrose (Magnesium Sulfate PREMIX 2GM) 50 ml @ 25 mls/hr PRN DAILY PRN IV for Mag < 1.7 on am labs; Start 10/25/16 at 07:30 Calcium Gluconate 1000 mg 1,000 mg Q2H IVP Last administered on 10/25/16 17:11 ; Start 10/25/16 at 07:30; Stop 10/25/16 at 11:31; Status DC Albumin Human 100 ml @ 100 mls/hr 1X ONCE IV Last administered on 10/25/16 08:32; Start 10/25/16 at 08:30; Stop 10/25/16 at 09:29; Status DC Albumin Human (Albuminar) 50 ml @ 50 mls/hr 1X ONCE IV Last administered on 08:30; Start 10/25/16 at 08:30; Stop 10/25/16 at 09:29; Status DC Info (PHARMACY MONITORING -- do not chart) 1 each PRN DAILY PRN MC SEE COMMENTS ; Start 10/25/16 at 08:45 Info 1 each 1 each PRN DAILY PRN MC SEE COMMENTS; Start 10/25/16 at 08:45; Status Cancel Sodium Chloride 1,000 ml @ 1,000 mls/hr Q1H PRN IV hypotension; Start 10/25/16 at 08:54; Stop 10/25/16 at 14:53; Status DC Albumin Human (Albuminar) 200 ml @ 200 mls/hr 1X PRN PRN IV Hypotension Last administered on 10/25/16 09:08; Start 10/25/16 at 09:00; Stop 10/25/16 at 14:59 ; Status DC Sodium Chloride (Normal Saline Flush) 10 ml 1X PRN PRN IV AP catheter pack; Start 10/25/16 at 09:00; Stop 10/26/16 at 08:59; Status DC Sodium Chloride (Normal Saline Flush) 10 ml 1X PRN PRN IV ORDER FULFILLMENT SPECIALIST catheter pack; Start 10/25/16 at 09:00; Stop 10/26/16 at 08:59; Status DC Info (PHARMACY MONITORING -- do not chart) 1 each PRN DAILY PRN MC SEE COMMENTS ; Start 10/25/16 at 09:00; Status Cancel Info (PHARMACY MONITORING -- do not chart) 1 each PRN DAILY PRN MC SEE COMMENTS ; Start 10/25/16 at 09:00; Stop 10/26/16 at 11:18; Status DC Atorvastatin Calcium (Lipitor) 10 mg QHS PO ; Start 10/26/16 at 21:00 Dextrose 25 gm 25 gm 1X ONCE IV Last administered on 10/25/16 22:00; Start at 22:15; Stop 10/25/16 at 22:16; Status DC Dextrose 1,000 ml @ 80 mls/hr [id number] IV Last administered on 10/27/16 00:15; Start 10/26/16 at 11:00 Vancomycin HCl 125 mg 125 mg BID PO Last administered on 10/27/16 08:23; Start 10/26/16 at 21:00 Ampicillin Sodium/ Sulbactam Sodium 1.5 gm/Sodium Chloride 50 ml @ 100 mls/hr Q6HRS IV Last administered on 10/27/16 11:50; Start 10/26/16 at 18:00 Sodium Chloride 1,000 ml @ 1,000 mls/hr Q1H PRN IV hypotension; Start 10/27/16 at 10:11; Stop 10/27/16 at 16:10 Albumin Human (Albuminar) 200 ml @ 200 mls/hr 1X PRN PRN IV Hypotension Last administered on 10/27/16t 11:18; Start 10/27/16 at 10:15; Stop 10/27/16 at 16:14 Diphenhydramine HCl (Benadryl) 25 mg 1X PRN PRN IV ITCHING; Start 10/27/16 at 10 :15; Stop 10/28/16 at 10:14 Diphenhydramine HCl 25 mg 25 mg 1X PRN PRN IV ITCHING; Start 10/27/16 at 10:15; Stop 10/28/16 at 10:14 Sodium Chloride (Iv Sodium Chloride 0.9% 1000ml Bag) 1,000 ml @ 400 mls/hr Q2H30M PRN IV PATENCY; Start 10/27/16 at 10:11; Stop 10/27/16 at 22:10 Info (PHARMACY MONITORING -- do not chart) 1 each PRN DAILY PRN MC SEE COMMENTS ; Start 10/27/16 at 10:15 Active Scripts Active Midodrine Hcl 2.5 Mg Tablet 2.5 Mg PO PRN TID PRN Reported Gluco Burst (Dextrose) 37.5 Gm Gel..gram. 37.5 Gm PO PRN Glucagon Emergency Kit (Glucagon,Human Recombinant) 1 Mg Kit 1 Mg IM PRN Ferrous Sulfate 325 Mg Tablet 1 Tab PO DAILY DURAGESIC 50mcg/hr (Fentanyl) 1 Each Patch.td72 1 Patch TD Q72H Benadryl (Diphenhydramine Hcl) 25 Mg Capsule 25 Mg PO PRN Q4HRS PRN Midodrine Hcl 5 Mg Tablet 5 Mg PO BID Sodium Bicarbonate 650 Mg Tablet 650 Mg PO BID Potassium Chloride 10 Meq Tablet.er 10 Meq PO DAILY Keflex (Cephalexin) 500 Mg Capsule 500 Mg PO QID Humalog Kwikpen (Insulin Lispro) 200 Unit/1 Ml Insuln.pen 3 Unit SQ TIDAC Famotidine 20 Mg Tablet 20 Mg PO DAILY Oxycodone Hcl 15 Mg Tablet 1 Tab PO PRN Q4HRS PRN Phoslo (Calcium Acetate) 667 Mg Capsule 2 Cap PO TIDWMEALS Allopurinol 100 Mg Tablet 1 Tab PO DAILY Oyster Shell Calcium-Vit D Tab (Calcium Carbonate/Vitamin D2) 1 Each Tablet 1 Each PO TID Acidophilus Lactobacillus (Lactobacillus Acidophilus) 1 Each Capsule 1 Each PO DAILY Acetaminophen 325 Mg Tablet 650 Mg PO PRN Q4HRS PRN Atorvastatin Calcium 10 Mg Tablet 1 Tab PO DAILY Folic Acid 1 Mg Tablet 1 Mg PO DAILY Levothyroxine Sodium 25 Mcg Tablet 75 Mcg PO DAILYAC Vitals/I & O Vital Sign - Last 24 Hours 10/26/16 10/26/16 10/26/16 10/26/16 13:00 14:00 15:00 16:00 Temp 96.0 96.6 96.0 96.6 Pulse 74 80 77 81 Resp 06 06 11 10 B/P 108/85 108/83 105/80 102/87 Pulse Ox 100 92 94 94 O2 Delivery Nasal Cannula Room Air Room Air Room Air O2 Flow Rate 2.0 10/26/16 10/26/16 10/26/16 10/26/16 17:00 18:00 19:00 20:00 Temp 98.2 98.2 Pulse 78 88 82 84 Resp 05 11 14 16 B/P 111/86 111/90 123/95 122/93 Pulse Ox 95 93 95 95 O2 Delivery Room Air Room Air Room Air Room Air 10/26/16 10/26/16 10/26/16 10/26/16 20:00 21:00 22:00 23:00 Pulse 86 82 78 Resp 15 12 B/P 112/94 107/88 113/82 Pulse Ox 93 97 96 O2 Delivery Room Air Room Air Room Air Room Air 10/27/16 10/27/16 10/27/16 10/27/16 00:00 00:00 01:00 02:00 Pulse 78 74 78 Resp 06 08 12 B/P 119/85 104/79 114/88 Pulse Ox 96 94 94 O2 Delivery Room Air Room Air Room Air Room Air 10/27/16 10/27/16 10/27/16 10/27/16 03:00 04:00 04:00 05:00 Temp 97.4 97.4 Pulse 76 73 72 Resp 15 B/P 107/83 116/91 108/86 Pulse Ox 93 97 94 O2 Delivery Room Air Room Air Room Air Room Air 10/27/16 10/27/16 10/27/16 10/27/16 06:00 07:00 08:00 08:00 Temp 97.1 97.1 97.1 97.1 Pulse 76 94 94 Resp 12 B/P 120/92 112/94 112/94 Pulse Ox 93 93 O2 Delivery Room Air Room Air Room Air Room Air O2 Flow Rate 94.0 94.0 94.0 10/27/16 10/27/16 10/27/16 10/27/16 08:06 09:40 10:01 11:00 Temp 97.1 97.1 97.1 97.1 97.1 97.1 Pulse 94 72 72 87 Resp 16 16 B/P 112/94 129/89 129/89 87/67 Pulse Ox 93 100 O2 Delivery Room Air Room Air Room Air O2 Flow Rate 94.0 10/27/16 11:49 Resp 16 Pulse Ox 99 O2 Delivery Room Air Intake and Output 10/26/16 10/26/16 10/27/16 15:00 23:00 07:00 Intake Total 153 ml 150 ml 220 ml Output Total 0 ml Balance 153 ml 150 ml 220 ml Nutrition Consultation Dietary Evaluation: Recommendations by RD: Increase Calorie Intake, Protein supplementation Comments: Rec. continue novasource renal TID - 475kcal and 21.6g protein per serving Rec. MVI and 500mg vit c q day to aid wound healing Expected Outcomes/Goals: to meet >75% est nutr needs Malnutrition Findings: Food and Nutrition Intake (Mod: <75% est energy req 7days Body Fat Depletion (Non Severe: Mod to Severe Weight Status: Appropriate CASTLE,NIAL K III DO October 27, 2016 12:28
--- NOTE | 2016-10-27 13:23 | PDOC2 ---
PALLIATIVE CARE Palliative Care Note Palliative Care Patient received dialysis this am Discussed option for platelet transfusions with Dr. Thomas. Will consult hem/ onc. Patient needs change in lines secondary to possible infections. Risk of removal and reinsertion of line discussed. Meeting with sister yesterday. Discussed "new lower normal" condition. Will continue same treatments per request of family. NESTOR ALANIZ October 27, 2016 13:23
[2016-10-27 13:59] LABS: INR 2.3 (0.8-1.1); PROTHROMBIN TIME PATIENT 24.1 SEC (11.7-14.0)
[2016-10-27] MEDS ORDERED: LIDOCAINE 1%/EPI 1:100,000 20 ML VIAL. ONE (14:41)
[2016-10-27] MEDS ORDERED: GLUCAGON,HUMAN RECOMBINANT 1 MG/ML VIAL. IM PRN (14:47)
--- NOTE | 2016-10-27 14:59 | PDOC ---
Provider Note Provider Note Onc consult dictated- [id number] Acute on chronic thrombocytopenia- Worsened by sepsis with underlying cirrhosis contributing Coagulopathy due to liver disease Needs HD catheter removal and paracentesis this PM- Agree with transfusion Checking fibrinogen- Give cryo if < 100. MARIA C GARNETT DO October 27, 2016 14:59
[2016-10-27] MEDS ORDERED: LIDOCAINE 1% / SOD BICARB 8.4% 20 ML VIAL. IJ ONE (15:30)
--- NOTE | 2016-10-27 15:44 | PDOC ---
Exam Manager Clinical Pharmacy Manager Clinical Pharmacy Dennis Hand Model Hand Model B Cates Pre-Procedure Diagnosis Pre-Procedure Diagnosis 56 YO male with ESRD, CHF, chronic liver disease, recurrent large volume ascites, and bacteremia with possibly infected tunneled HDC. Post-Procedure Diagnosis Post-Procedure Diagnosis Same. Procedure Performed Procedure Performed Sono guided Tx paracentesis for symptomatic relief and to evaluate for SBP. Removal of possibly infected rt IJ tunneled HDC due to bacteremia. Type of Anesthesia Type of Anesthesia Local only Estimated Blood Loss EBL: Trace Specimens Specimans 9200 cc yellow-clear ascites removed---samples to lab for cell count and culture to exclude SBP. 14.5F 19cm Palindrome tunneled HDC removed---tip to micro for C&S Condition of Patient Condition of Patient No change. No apparent complication. Thrombocytopenia addressed with Platelet transfusion. Disposition Disposition From IR return to ICU. Full report to follow. KYM FUNK MD October 27, 2016 15:44
[2016-10-27] MEDS ORDERED: LIDOCAINE 1%/EPI 1:100,000 20 ML VIAL. INJ ONE (16:00)
[2016-10-27] MEDS ORDERED: ALBUMIN HUMAN 25% 100 ML IV ONE (16:00)
--- NOTE | 2016-10-27 16:02 | RAD ---
Ultrasound-guided therapeutic paracentesis Indication: 48-year-old male with congestive heart failure, end-stage renal disease, chronic liver disease, and recurrent massive, symptomatic ascites. He also has bacteremia, raising the question of SBP. Image guided paracentesis has been requested. Anesthesia: Local only Procedure: Informed consent was obtained from the patient's sister. This procedure was performed in the angiography suite, with the patient on a hospital cart. Preliminary ultrasound examination confirmed the presence of a large volume of abdominal/pelvic ascites. A right abdominal peritoneal fluid collection, suitable for sono guided paracentesis, was selected, was marked, and was documented with a single hard copy ultrasound image. That area was then prepped and draped in the usual sterile fashion. Using aseptic technique, local anesthesia, and direct ultrasound guidance, a 21-gauge micropuncture needle was successfully introduced into the selected peritoneal fluid collection. The 21-gauge needle was exchanged over a microguidewire for a micropuncture sheath, which was, in turn, exchanged over a 0.035 inch guidewire for a 6 Amharic drainage catheter. Approximately 9200 cc of yellow-clear ascites was removed, samples which were submitted to the clinical laboratory for culture and cell count. The drainage catheter was then removed and a sterile dressing was applied. Patient tolerated the procedure well without apparent complication. Infusion of 25 g 25% albumin was initiated during the paracentesis procedure. Impression: Successful, uneventful ultrasound-guided therapeutic paracentesis, as described.
--- NOTE | 2016-10-27 16:07 | RAD ---
Removal of tunneled hemodialysis catheter Indication: 56-year-old male with end stage renal disease, with bacteremia, and with possibly infected right IJ tunneled hemodialysis catheter. Tunneled dialysis catheter removal has been requested. Anesthesia: Local only Sterility: All elements of maximal sterile barrier technique, including the use of a cap, mask, sterile gown, sterile gloves, large sterile sheet, appropriate hand hygiene, and 2% chlorhexidine for cutaneous antisepsis (or acceptable alternative antiseptic per current guidelines) were utilized. Fluoroscopy time: None Procedure: Informed consent was obtained from the patient. This procedure was performed in the angiography suite, with the patient in his hospital bed, without fluoroscopic guidance. Right neck and chest were prepped and draped in the usual sterile fashion, utilizing all elements of maximal sterile barrier technique, as described above. No moderate sedation was utilized. Using aseptic technique and local anesthesia, a small, infraclavicular, vertically oriented skin incision was made overlying retention cuff of the indwelling right IJ 14.5 [place] Citizen 19 cm palindrome tunneled hemodialysis catheter. Subsequently, utilizing blunt and sharp dissection, the retention cuff was freed from surrounding soft tissues. The dialysis catheter was exposed, was clamped, and was divided. Proximal segment of the catheter was removed through the pre-existing skin exit site. Distal, clamped segment of the catheter was removed through infraclavicular incision, which was then closed with Skin Affix, Steri-Strips, and sterile dressing. Tip of the removed dialysis catheter was submitted to microbiology for culture and sensitivity. Impression: Successful, uneventful removal of right IJ 14.5 [place] Citizen 19 cm palindrome tunneled hemodialysis catheter, as described.
[2016-10-27 16:46] LABS: BF CLARITY CLEAR; BF COLOR YELLOW
[2016-10-27] MEDS: ATORVASTATIN CALCIUM 10 MG TABLET. PO SCH (21:42)
[2016-10-28] VITALS (17 sets, daily range): BP systolic 89–131; BP diastolic 54–100
--- NOTE | 2016-10-28 03:08 | CONS ---
DATE OF CONSULTATION: 10/27/2016 REFERRING PROVIDER: Dr. Thomas. REASON FOR CONSULTATION: Thrombocytopenia. HISTORY OF PRESENT ILLNESS: The patient is a 56-year-old male who was admitted to the hospital on 10/23/2016 with syncope, SVT and hypotension. He has been found to have acinetobacter bacteremia. He is chronically on dialysis and the dialysis catheter in his chest is planned to be replaced. He has a history of hepatitis C and end-stage cirrhosis with refractory ascites frequently undergoing large volume paracenteses. His baseline platelets tend to run over the last year anywhere from 30-90. Upon admission, his platelet count was 98 and has dropped to 22. He does not have any clinical bleeding. PAST MEDICAL HISTORY: Anemia of chronic disease, heart failure, diabetes, GERD, hyperlipidemia, hypertension, hypothyroidism, hepatitis C, end-stage renal disease on dialysis, chronic cirrhosis, recent C. diff infection, cardiomyopathy, refractory ascites and chronic thrombocytopenia. PAST SURGICAL HISTORY: Dialysis catheter placements, ongoing paracenteses and right shoulder surgery. FAMILY HISTORY: Negative per chart review. SOCIAL HISTORY: Lives in a prison chronically. No tobacco, alcohol or drug use per chart review. ALLERGIES: No known drug allergies. CURRENT MEDICATIONS: Tylenol, Lortab, albuterol, allopurinol, Lipitor, PhosLo, Os-Brian 500 plus D, Benadryl, Pepcid, Duragesic, oral iron, folic acid, glucagon, lactobacillus, Synthroid, magnesium, midodrine, Zofran, potassium chloride, sodium bicarbonate and vancomycin. REVIEW OF SYSTEMS: Ten-point review of systems is somewhat limited due to the patient's inability to provide a good history. He denies any abdominal pain at this time, but significant ascites present. No other complaints. PHYSICAL EXAMINATION: VITAL SIGNS: Temperature 97.4, pulse 113, respiratory rate 18, blood pressure 121/89, 100% O2 on room air. GENERAL: He is alert and oriented, cachectic, no distress, limited interaction with medical staff. HEENT: No scleral icterus, dry mucous membranes. CARDIOVASCULAR: Heart is tachycardic, but regular in rhythm. LUNGS: Clear to auscultation bilaterally. ABDOMEN: Diffuse tense ascites is present. EXTREMITIES: 2+ edema in bilateral lower extremities, wound with dressing in place on his left medial ankle. NEUROLOGIC: No focal cranial deficits. IMAGING AND LABORATORY DATA: Platelet counts reviewed as above. Hemoglobin initially normal on admission, now down to 11.5. WBC remained normal. INR chronically elevated around 1.6. I added on a repeat INR, which returned at 2.3. Fibrinogen is pending. Previous abdominal imaging did reveal cirrhotic changes, no liver nodules, creatinine remains elevated, but stable. Blood cultures have grown acinetobacter. ASSESSMENT AND PLAN: The patient is a 56-year-old male with the following medical problems: 1. Acute on chronic thrombocytopenia, likely most recently reactive due to his underlying bacteremia. His baseline count is likely low due to his hepatitis C, end-stage liver disease. He does not appear to be on any ongoing offending medications. Given that his hemoglobin and WBC are otherwise unremarkable, I do not suspect an underlying acute hematologic process. Renal function has been unchanged, so this is not TTP. He is going to undergo some procedures this afternoon, so platelets should be transfused. I will also follow up on the fibrinogen and recommend replacement of cryoprecipitate if the fibrinogen returns less than 100. I would expect his platelets to return back to his baseline anywhere from 30-90 as he recovers from this infection. 2. End-stage liver disease, hepatitis C, refractory ascites with underlying coagulopathy. 3. Acinetobacter bacteremia. Infectious Disease is following. The dialysis catheter is being removed. Thank you for allowing me to participate in his care. I discussed these recommendations with his ICU nurse as well. MARIA C GARNETT DO DR: ARACELI/melissa JOB#: [id number] / [id number] TARYN
[2016-10-28] MEDS: IV DEXTROSE 10% 1,000 ML IV SCH ×2 (05:19→18:29)
[2016-10-28 05:59] LABS: BASO % 0 % (0-3); EOS % 1 % (0-3); HEMOGLOBIN 9.3 g/dL (13.0-17.5); LYMPH # 0.5 x10^3/uL (1.0-4.8); LYMPH % 7 % (24-48); MEAN CORPUSCULAR HEMOGLOBIN 29 pg (25-35); MEAN CORPUSCULAR HGB CONC 33 g/dL (31-37); MEAN CORPUSCULAR VOLUME 88 fL (79-100); MONO % 5 % (0-9); NEUT % 87 % (31-73); RED CELL DISTRIBUTION WIDTH 17.7 % (11.5-14.5)
[2016-10-28 06:04] LABS: ALBUMIN 2.1 g/dL (3.4-5.0); CALCIUM 6.9 mg/dL (8.5-10.1); CREATININE 3.6 mg/dL (0.7-1.3); GFR 21.2; PHOSPHORUS 3.8 mg/dL (2.6-4.7); POTASSIUM 4.2 mmol/L (3.5-5.1)
[2016-10-28] MEDS: AMPICILLIN/SULBACTAM 1.5 GM in IV NORMAL SALINE 50ML 50 ML IV SCH ×3 (06:06→18:20)
[2016-10-28 06:10] LABS: PLATELET COUNT 24 x10^3/uL (140-400)
--- NOTE | 2016-10-28 08:51 | PDOC ---
Infectious Disease Note Subjective Subjective awake, no complaints MARIBEL LÓPEZ denies n/v/d/pain Vital Sign Vital Signs Vital Signs Date Time Temp Pulse Resp B/P Pulse Ox O2 Delivery O2 Flow Rate FiO2 10/28/16 06:05 96.6 76 12 122/87 94 Room Air 96.6 10/28/16 01:10 2.0 Physical Exam PHYSICAL EXAM GENERAL: NAD, Alert HEENT: PERRL, OC/OP NECK: Supple, no JVD, no LN LUNGS: Clear HEART: S1S2, no gallop, no murmur ABD: Soft, NT, no organomegaly, no rebound, ascites ++ EXT: No edema, no cyanosis [employer]: Alert, oriented x 3, no focal neurologic deficit SKIN: No rash IV: ok Labs Lab Laboratory Tests Test 10/27/16 10:14 10/27/16 11:44 10/27/16 13:35 10/27/16 15:30 Glucose (Fingerstick) 126mg/dL (70-99) 124mg/dL (70-99) Haptoglobin 63mg/dL (34-200) Prothrombin Time 24.1SEC (11.7-14.0) Prothromb Time International Ratio 2.3 (0.8-1.1) Fibrinogen 163mg/dL (200-440) Ferritin 388ng/mL (26-388) Body Fluid Source Ascites Body Fluid Color Yellow Body Fluid Clarity Clear Body Fluid Nucleated Cells 10/cmm Body Fluid Mononuclear WBCs (%) 77% Body Fluid Polymorphonuclear Cells 21% Body Fluid Total RBCs Counted 14/cmm Body Fluid Other Cells (%) 2% Test 10/27/16 17:08 10/27/16 20:10 10/27/16 22:24 10/28/16 00:01 Glucose (Fingerstick) 75mg/dL (70-99) 82mg/dL (70-99) 139mg/dL (70-99) 133mg/dL (70-99) Test 10/28/16 05:30 10/28/16 06:04 10/28/16 07:55 White Blood Count 7.0x10^3/uL (4.0-11.0) Red Blood Count 3.20x10^6/uL (4.30-5.70) Hemoglobin 9.3g/dL (13.0-17.5) Hematocrit 28.0% (39.0-53.0) Mean Corpuscular Volume 88fL (79-100) Mean Corpuscular Hemoglobin 29pg (25-35) Mean Corpuscular Hemoglobin Concent 33g/dL (31-37) Red Cell Distribution Width 17.7% (11.5-14.5) Platelet Count 24x10^3/uL (140-400) Neutrophils (%) (Auto) 87% (31-73) Lymphocytes (%) (Auto) 7% (24-48) Monocytes (%) (Auto) 5% (0-9) Eosinophils (%) (Auto) 1% (0-3) Basophils (%) (Auto) 0% (0-3) Neutrophils # (Auto) 6.1x10^3uL (1.8-7.7) Lymphocytes # (Auto) 0.5x10^3/uL (1.0-4.8) Monocytes # (Auto) 0.4x10^3/uL (0.0-1.1) Eosinophils # (Auto) 0.1x10^3/uL (0.0-0.7) Basophils # (Auto) 0.0x10^3/uL (0.0-0.2) Sodium Level 134mmol/L (136-145) Potassium Level 4.2mmol/L (3.5-5.1) Chloride Level 99mmol/L (98-107) Carbon Dioxide Level 29mmol/L (21-32) Anion Gap 6 (6-14) Blood Urea Nitrogen 42mg/dL (8-26) Creatinine 3.6mg/dL (0.7-1.3) Estimated GFR (Cockcroft-Gault) 21.2 Glucose Level 113mg/dL (70-99) Calcium Level 6.9mg/dL (8.5-10.1) Phosphorus Level 3.8mg/dL (2.6-4.7) Magnesium Level 1.5mg/dL (1.8-2.4) Albumin 2.1g/dL (3.4-5.0) Glucose (Fingerstick) 106mg/dL (70-99) 111mg/dL (70-99) Objective Assessment Gram variable rods sepsis POA. Acinetobacter Bandemia H/o recent c. diff CKD on HD Cirrhosis of liver w/ refractory ascites DM with hypoglycemia Debility SVT Thrombocytopenia Plan Plan of Care unasyn ,, lab to check on unasyn and meropenem susceptibility Po vancomycin BID for prophylaxis Monitor labs Supportive care CARMINE CLIFTON MD October 28, 2016 08:51
--- NOTE | 2016-10-28 08:55 | PDOC ---
G I PROGRESS NOTE Subjective Not interested in conversation. Getting ready to eat breakfast. Objective Paracentesis yesterday. Some hypothermia noted by staff. Physical Exam Lungs clear. RRR Abdomen much less distended. Review of Relevant I have reviewed the following items дмитрий (where applicable) has been applied. Labs Laboratory Tests Test 10/26/16 09:51 10/26/16 12:06 10/26/16 16:35 10/26/16 21:18 Glucose (Fingerstick) 133mg/dL (70-99) 101mg/dL (70-99) 102mg/dL (70-99) 153mg/dL (70-99) Test 10/27/16 03:48 10/27/16 05:35 10/27/16 10:14 10/27/16 11:44 Glucose (Fingerstick) 139mg/dL (70-99) 126mg/dL (70-99) 124mg/dL (70-99) White Blood Count 10.1x10^3/uL (4.0-11.0) Red Blood Count 4.03x10^6/uL (4.30-5.70) Hemoglobin 11.5g/dL (13.0-17.5) Hematocrit 35.2% (39.0-53.0) Mean Corpuscular Volume 87fL (79-100) Mean Corpuscular Hemoglobin 29pg (25-35) Mean Corpuscular Hemoglobin Concent 33g/dL (31-37) Red Cell Distribution Width 17.7% (11.5-14.5) Platelet Count 22x10^3/uL (140-400) Neutrophils (%) (Auto) 88% (31-73) Lymphocytes (%) (Auto) 5% (24-48) Monocytes (%) (Auto) 5% (0-9) Eosinophils (%) (Auto) 1% (0-3) Basophils (%) (Auto) 0% (0-3) Neutrophils # (Auto) 8.9x10^3uL (1.8-7.7) Lymphocytes # (Auto) 0.5x10^3/uL (1.0-4.8) Monocytes # (Auto) 0.5x10^3/uL (0.0-1.1) Eosinophils # (Auto) 0.1x10^3/uL (0.0-0.7) Basophils # (Auto) 0.0x10^3/uL (0.0-0.2) Sodium Level 133mmol/L (136-145) Potassium Level 5.0mmol/L (3.5-5.1) Chloride Level 97mmol/L (98-107) Carbon Dioxide Level 28mmol/L (21-32) Anion Gap 8 (6-14) Blood Urea Nitrogen 65mg/dL (8-26) Creatinine 5.1mg/dL (0.7-1.3) Estimated GFR (Cockcroft-Gault) 14.2 Glucose Level 138mg/dL (70-99) Calcium Level 6.9mg/dL (8.5-10.1) Phosphorus Level 5.5mg/dL (2.6-4.7) Magnesium Level 1.7mg/dL (1.8-2.4) Albumin 1.9g/dL (3.4-5.0) Test 10/27/16 13:35 10/27/16 15:30 10/27/16 17:08 10/27/16 20:10 Haptoglobin 63mg/dL (34-200) Prothrombin Time 24.1SEC (11.7-14.0) Prothromb Time International Ratio 2.3 (0.8-1.1) Fibrinogen 163mg/dL (200-440) Ferritin 388ng/mL (26-388) Body Fluid Source Ascites Body Fluid Color Yellow Body Fluid Clarity Clear Body Fluid Nucleated Cells 10/cmm Body Fluid Mononuclear WBCs (%) 77% Body Fluid Polymorphonuclear Cells 21% Body Fluid Total RBCs Counted 14/cmm Body Fluid Other Cells (%) 2% Glucose (Fingerstick) 75mg/dL (70-99) 82mg/dL (70-99) Test 10/27/16 22:24 10/28/16 00:01 10/28/16 05:30 10/28/16 06:04 Glucose (Fingerstick) 139mg/dL (70-99) 133mg/dL (70-99) 106mg/dL (70-99) White Blood Count 7.0x10^3/uL (4.0-11.0) Red Blood Count 3.20x10^6/uL (4.30-5.70) Hemoglobin 9.3g/dL (13.0-17.5) Hematocrit 28.0% (39.0-53.0) Mean Corpuscular Volume 88fL (79-100) Mean Corpuscular Hemoglobin 29pg (25-35) Mean Corpuscular Hemoglobin Concent 33g/dL (31-37) Red Cell Distribution Width 17.7% (11.5-14.5) Platelet Count 24x10^3/uL (140-400) Neutrophils (%) (Auto) 87% (31-73) Lymphocytes (%) (Auto) 7% (24-48) Monocytes (%) (Auto) 5% (0-9) Eosinophils (%) (Auto) 1% (0-3) Basophils (%) (Auto) 0% (0-3) Neutrophils # (Auto) 6.1x10^3uL (1.8-7.7) Lymphocytes # (Auto) 0.5x10^3/uL (1.0-4.8) Monocytes # (Auto) 0.4x10^3/uL (0.0-1.1) Eosinophils # (Auto) 0.1x10^3/uL (0.0-0.7) Basophils # (Auto) 0.0x10^3/uL (0.0-0.2) Sodium Level 134mmol/L (136-145) Potassium Level 4.2mmol/L (3.5-5.1) Chloride Level 99mmol/L (98-107) Carbon Dioxide Level 29mmol/L (21-32) Anion Gap 6 (6-14) Blood Urea Nitrogen 42mg/dL (8-26) Creatinine 3.6mg/dL (0.7-1.3) Estimated GFR (Cockcroft-Gault) 21.2 Glucose Level 113mg/dL (70-99) Calcium Level 6.9mg/dL (8.5-10.1) Phosphorus Level 3.8mg/dL (2.6-4.7) Magnesium Level 1.5mg/dL (1.8-2.4) Albumin 2.1g/dL (3.4-5.0) Test 10/28/16 07:55 Glucose (Fingerstick) 111mg/dL (70-99) Laboratory Tests Test 10/27/16 10:14 10/27/16 11:44 10/27/16 13:35 10/27/16 15:30 Glucose (Fingerstick) 126mg/dL (70-99) 124mg/dL (70-99) Haptoglobin 63mg/dL (34-200) Prothrombin Time 24.1SEC (11.7-14.0) Prothromb Time International Ratio 2.3 (0.8-1.1) Fibrinogen 163mg/dL (200-440) Ferritin 388ng/mL (26-388) Body Fluid Source Ascites Body Fluid Color Yellow Body Fluid Clarity Clear Body Fluid Nucleated Cells 10/cmm Body Fluid Mononuclear WBCs (%) 77% Body Fluid Polymorphonuclear Cells 21% Body Fluid Total RBCs Counted 14/cmm Body Fluid Other Cells (%) 2% Test 10/27/16 17:08 10/27/16 20:10 10/27/16 22:24 10/28/16 00:01 Glucose (Fingerstick) 75mg/dL (70-99) 82mg/dL (70-99) 139mg/dL (70-99) 133mg/dL (70-99) Test 10/28/16 05:30 10/28/16 06:04 10/28/16 07:55 White Blood Count 7.0x10^3/uL (4.0-11.0) Red Blood Count 3.20x10^6/uL (4.30-5.70) Hemoglobin 9.3g/dL (13.0-17.5) Hematocrit 28.0% (39.0-53.0) Mean Corpuscular Volume 88fL (79-100) Mean Corpuscular Hemoglobin 29pg (25-35) Mean Corpuscular Hemoglobin Concent 33g/dL (31-37) Red Cell Distribution Width 17.7% (11.5-14.5) Platelet Count 24x10^3/uL (140-400) Neutrophils (%) (Auto) 87% (31-73) Lymphocytes (%) (Auto) 7% (24-48) Monocytes (%) (Auto) 5% (0-9) Eosinophils (%) (Auto) 1% (0-3) Basophils (%) (Auto) 0% (0-3) Neutrophils # (Auto) 6.1x10^3uL (1.8-7.7) Lymphocytes # (Auto) 0.5x10^3/uL (1.0-4.8) Monocytes # (Auto) 0.4x10^3/uL (0.0-1.1) Eosinophils # (Auto) 0.1x10^3/uL (0.0-0.7) Basophils # (Auto) 0.0x10^3/uL (0.0-0.2) Sodium Level 134mmol/L (136-145) Potassium Level 4.2mmol/L (3.5-5.1) Chloride Level 99mmol/L (98-107) Carbon Dioxide Level 29mmol/L (21-32) Anion Gap 6 (6-14) Blood Urea Nitrogen 42mg/dL (8-26) Creatinine 3.6mg/dL (0.7-1.3) Estimated GFR (Cockcroft-Gault) 21.2 Glucose Level 113mg/dL (70-99) Calcium Level 6.9mg/dL (8.5-10.1) Phosphorus Level 3.8mg/dL (2.6-4.7) Magnesium Level 1.5mg/dL (1.8-2.4) Albumin 2.1g/dL (3.4-5.0) Glucose (Fingerstick) 106mg/dL (70-99) 111mg/dL (70-99) Microbiology 10/25/16 Blood Culture - Preliminary, Resulted NO GROWTH AFTER 2 DAYS fluid studies not suggestive of SBP. Gram stain/culture of HD catheter tip pending. Medications Current Medications Sodium Chloride 500 ml @ 250 mls/hr 1X ONCE IV Last administered on 16:24; Start 10/23/16 at 16:15; Stop 10/23/16 at 18:14; Status DC Sodium Chloride (Iv Sodium Chloride 0.9% 500ml Bag) 500 ml @ 250 mls/hr 1X ONCE IV Last administered on 10/23/16 17:15; Start 10/23/16 at 17:15; Stop at 19:14; Status DC Diltiazem HCl 5 mg 5 mg 1X ONCE IVP Last administered on 10/23/16 19:12; Start 10/23/16 at 18:45; Stop 10/23/16 at 18:49; Status DC Diltiazem HCl/ Dextrose (Cardizem) 125 ml @ 0 mls/hr 1X ONCE IV ; Start at 18:45; Stop 10/23/16 at 19:59; Status DC Digoxin (Lanoxin) 250 mcg 1X ONCE IV Last administered on 10/23/16 22:36; Start 10/23/16 at 20:00; Stop 10/23/16 at 20:01; Status DC Ondansetron HCl (Zofran) 4 mg PRN Q8HRS PRN IV NAUSEA/VOMITING; Start 10/23/16 at 20:15; Stop 10/23/16 at 22:04; Status DC Acetaminophen (Tylenol) 650 mg PRN Q4HRS PRN PO FEVER; Start 10/23/16 at 20:15 ; Stop 10/23/16 at 22:04; Status DC Acetaminophen (Tylenol) 325 mg PRN Q6HRS PRN PO MILD PAIN / TEMP; Start at 22:00; Stop 10/25/16 at 11:09; Status DC Acetaminophen/ Hydrocodone Bitart (Lortab 5/325) 1 tab PRN Q6HRS PRN PO MODERATE TO SEVERE PAIN; Start 10/23/16 at 22:00 Hydralazine HCl (Apresoline) 10 mg PRN Q4HRS PRN IVP ELEVATED BP, SEE COMMENTS ; Start 10/23/16 at 22:00 Ondansetron HCl (Zofran) 4 mg PRN Q8HRS PRN IV NAUSEA/VOMITING; Start 10/23/16 at 22:00 Albuterol Sulfate 2.5 mg 2.5 mg PRN Q4HRS PRN NEB SHORTNESS OF BREATH; Start at 22:00 Sodium Chloride (Iv Sodium Chloride 0.9% 500ml Bag) 500 ml @ 500 mls/hr 1X ONCE IV Last administered on 10/23/16 22:34; Start 10/23/16 at 22:30; Stop at 23:29; Status DC Pneumococcal Polyvalent Vaccine (Do NOT chart on this placeholder) 1 each PRN DAILY PRN [facility] UNABLE TO RESPOND; Start 10/24/16 at 00:15; Status Cancel Dextrose (Dextrose 50%-Water Syringe) 12.5 gm PRN Q15MIN PRN IV SEE COMMENTS Last administered on 10/25/16 21:40; Start 10/24/16 at 01:15 Dextrose (Dextrose 50%-Water Syringe) 25 gm STK-MED ONCE IV ; Start 10/24/16 at 01:05; Stop 10/24/16 at 01:06; Status DC Metoprolol Tartrate (Lopressor) 12.5 mg BID PO Last administered on 10/25/16 21:06; Start 10/24/16 at 09:30; Stop 10/26/16 at 12:27; Status DC Acetaminophen (Tylenol) 650 mg PRN Q4HRS PRN PO PAIN; Start 10/24/16 at 10:45 Allopurinol (Zyloprim) 100 mg DAILY PO Last administered on 10/27/16 08:06; Start 10/24/16 at 11:00 Atorvastatin Calcium (Lipitor) 10 mg DAILY PO Last administered on 10/24/16 13 :52; Start 10/24/16 at 11:00; Stop 10/25/16 at 14:11; Status DC Calcium Acetate (Phoslo) 1,334 mg TIDWMEALS PO Last administered on 10/27/16 17 :06; Start 10/24/16 at 12:00 Diphenhydramine HCl (Benadryl) 25 mg PRN Q4HRS PRN PO ITCHING; Start 10/24/16 at 10:45 Famotidine (Pepcid) 20 mg DAILY PO Last administered on 10/27/16 08:06; Start 10/24/16 at 11:00 Fentanyl (Duragesic 50mcg/ Hr Patch) 1 patch Q72H TD Last administered on 11:49; Start 10/24/16 at 11:00 Ferrous Sulfate (Feosol) 325 mg DAILY PO Last administered on 10/27/16 08:05; Start 10/24/16 at 11:00 Folic Acid (Folic Acid) 1 mg DAILY PO Last administered on 10/27/16 08:05; Start 10/24/16 at 11:00 Levothyroxine Sodium (Synthroid) 75 mcg DAILYAC PO Last administered on 08:04; Start 10/25/16 at 07:30 Midodrine (Proamatine) 2.5 mg PRN TID PRN PO BLOOD PRESSURE; Start 10/24/16 at 10:45 Midodrine (Proamatine) 5 mg [id number] PO Last administered on 10/27/16 08:06; Start 10/24/16 at 14:00 Sodium Bicarbonate (Sodium Bicarbonate) 650 mg BID PO Last administered on 08:05; Start 10/24/16 at 11:00 Calcium/Vitamin D (Oscal D 500mg/ 200uts) 1 tab TID PO Last administered on 10/27 08:05; Start 10/24/16 at 14:00 Non-Formulary Medication 500 mg QID PO ; Start 10/24/16 at 13:00; Stop 10/24/16 at 13:00; Status DC Glucagon (Glucagen) 1 mg 1X PRN IM HYPOGLYCEMIA; Start 10/24/16 at 11:00; Stop 10/27/16 at 14:47; Status DC Insulin Aspart (Novolog) 3 units TIDAC SQ ; Start 10/24/16 at 11:30; Stop at 11:36; Status DC Lactobacillus Acidophilus (Bacid, Lou-Bid) 2 tab DAILY PO Last administered on 10/27/16 08:04; Start 10/24/16 at 11:00 Oxycodone HCl (Roxicodone) 5 mg PRN Q4HRS PRN PO PAIN Last administered on 10/25 21:07; Start 10/24/16 at 11:15 Potassium Chloride (Klor-Con) 10 meq [id number] PO Last administered on 08:05; Start 10/24/16 at 11:00 Vancomycin HCl 125 mg Q6HRS PO Last administered on 10/26/16 06:14; Start 10/24 at 12:00; Stop 10/26/16 at 11:21; Status DC Piperacillin Sod/ Tazobactam Sod 1 each 1 each PRN DAILY PRN MC SEE COMMENTS; Start 10/24/16 at 10:45; Stop 10/26/16 at 13:22; Status DC Vancomycin HCl 1.5 gm/Sodium Chloride 500 ml @ 250 mls/hr 1X ONCE IV ; Start 10/24/16 at 11:15; Stop 10/24/16 at 11:15; Status DC Piperacillin Sod/ Tazobactam Sod/ Sodium Chloride (Zosyn/Iv Sodium Chloride 0.9 % 50ml) 50 ml @ 100 mls/hr Q6HRS IV Last administered on 10/26/16 12:39; Start 10/24/16 at 12:00; Stop 10/26/16 at 13:23; Status DC Insulin Aspart (Novolog) 3 units TIDAC SQ ; Start 10/24/16 at 11:35; Stop at 07:44; Status DC Heparin Sodium (Porcine) 5000 unit 5,000 unit Q8HRS SQ Last administered on 06:09; Start 10/24/16 at 22:00; Stop 10/25/16 at 14:04; Status DC Amino Acids/ Glycerin/ Electrolytes (Procalamine) 1,000 ml @ 40 mls/hr Q24H IV Last administered on 10/26/16 04:09; Start 10/24/16 at 17:15; Stop 10/26/16 at 10:57; Status DC Dextrose (Dextrose 50%-Water Syringe) 25 gm PRN Q1HR PRN IV SEE COMMENTS Last administered on 10/26/16 08:54; Start 10/24/16 at 17:15 Glucose (Insta-Glucose) 15 gm STK-MED ONCE .ROUTE ; Start 10/24/16 at 17:44; Stop 10/24/16 at 17:45; Status DC Glucose (Insta-Glucose) 15 gm PRN Q15MIN PRN PO LOW BLOOD SUGAR Last administered on 10/24/16 17:50; Start 10/24/16 at 18:00 Sodium Polystyrene Sulfonate 15 gm 15 gm 1X ONCE PO ; Start 10/25/16 at 07:00; Stop 10/25/16 at 07:01; Status DC Magnesium Sulfate/ Dextrose (Magnesium Sulfate PREMIX 2GM) 50 ml @ 25 mls/hr PRN DAILY PRN IV for Mag < 1.7 on am labs; Start 10/25/16 at 07:30 Calcium Gluconate 1000 mg 1,000 mg Q2H IVP Last administered on 10/25/16 17:11 ; Start 10/25/16 at 07:30; Stop 10/25/16 at 11:31; Status DC Albumin Human 100 ml @ 100 mls/hr 1X ONCE IV Last administered on 10/25/16 08:32; Start 10/25/16 at 08:30; Stop 10/25/16 at 09:29; Status DC Albumin Human (Albuminar) 50 ml @ 50 mls/hr 1X ONCE IV Last administered on 08:30; Start 10/25/16 at 08:30; Stop 10/25/16 at 09:29; Status DC Info (PHARMACY MONITORING -- do not chart) 1 each PRN DAILY PRN MC SEE COMMENTS ; Start 10/25/16 at 08:45 Info 1 each 1 each PRN DAILY PRN MC SEE COMMENTS; Start 10/25/16 at 08:45; Status Cancel Sodium Chloride 1,000 ml @ 1,000 mls/hr Q1H PRN IV hypotension; Start 10/25/16 at 08:54; Stop 10/25/16 at 14:53; Status DC Albumin Human (Albuminar) 200 ml @ 200 mls/hr 1X PRN PRN IV Hypotension Last administered on 10/25/16 09:08; Start 10/25/16 at 09:00; Stop 10/25/16 at 14:59 ; Status DC Sodium Chloride (Normal Saline Flush) 10 ml 1X PRN PRN IV AP catheter pack; Start 10/25/16 at 09:00; Stop 10/26/16 at 08:59; Status DC Sodium Chloride (Normal Saline Flush) 10 ml 1X PRN PRN IV AUDIO NARRATOR catheter pack; Start 10/25/16 at 09:00; Stop 10/26/16 at 08:59; Status DC Info (PHARMACY MONITORING -- do not chart) 1 each PRN DAILY PRN MC SEE COMMENTS ; Start 10/25/16 at 09:00; Status Cancel Info (PHARMACY MONITORING -- do not chart) 1 each PRN DAILY PRN MC SEE COMMENTS ; Start 10/25/16 at 09:00; Stop 10/26/16 at 11:18; Status DC Atorvastatin Calcium (Lipitor) 10 mg QHS PO ; Start 10/26/16 at 21:00 Dextrose 25 gm 25 gm 1X ONCE IV Last administered on 10/25/16 22:00; Start at 22:15; Stop 10/25/16 at 22:16; Status DC Dextrose 1,000 ml @ 80 mls/hr [id number] IV Last administered on 10/28/16 05:19; Start 10/26/16 at 11:00 Vancomycin HCl 125 mg 125 mg BID PO Last administered on 10/27/16 08:23; Start 10/26/16 at 21:00 Ampicillin Sodium/ Sulbactam Sodium 1.5 gm/Sodium Chloride 50 ml @ 100 mls/hr Q6HRS IV Last administered on 10/28/16 06:06; Start 10/26/16 at 18:00 Sodium Chloride 1,000 ml @ 1,000 mls/hr Q1H PRN IV hypotension; Start 10/27/16 at 10:11; Stop 10/27/16 at 16:10; Status DC Albumin Human (Albuminar) 200 ml @ 200 mls/hr 1X PRN PRN IV Hypotension Last administered on 10/27/16 11:18; Start 10/27/16 at 10:15; Stop 10/27/16 at 16:14; Status DC Diphenhydramine HCl (Benadryl) 25 mg 1X PRN PRN IV ITCHING; Start 10/27/16 at 10 :15; Stop 10/27/16 at 19:00; Status DC Diphenhydramine HCl 25 mg 25 mg 1X PRN PRN IV ITCHING; Start 10/27/16 at 10:15; Stop 10/27/16 at 19:00; Status DC Sodium Chloride (Iv Sodium Chloride 0.9% 1000ml Bag) 1,000 ml @ 400 mls/hr Q2H30M PRN IV PATENCY; Start 10/27/16 at 10:11; Stop 10/27/16 at 22:10; Status DC Info (PHARMACY MONITORING -- do not chart) 1 each PRN DAILY PRN MC SEE COMMENTS ; Start 10/27/16 at 10:15; Status Cancel Lidocaine/ Epinephrine (Xylocaine 1%-Epi 1:100,000) 20 ml STK-MED ONCE .ROUTE ; Start 10/27/16 at 14:41; Stop 10/27/16 at 14:42; Status DC Glucagon (Glucagen) 1 mg 1X PRN PRN IM HYPOGLYCEMIA; Start 10/27/16 at 14:47 Lidocaine/Sodium Bicarbonate 4 ml 4 ml 1X ONCE IJ ; Start 10/27/16 at 15:30; Stop 10/27/16 at 15:59; Status DC Albumin Human (Albuminar) 100 ml @ 100 mls/hr 1X ONCE IV Last administered on 10/27/16t 15:57; Start 10/27/16 at 16:00; Stop 10/27/16 at 16:59; Status DC Lidocaine/ Epinephrine (Xylocaine 1%-Epi 1:100,000) 7 ml 1X ONCE INJ ; Start at 16:00; Stop 10/27/16 at 16:01; Status DC Active Scripts Active Midodrine Hcl 2.5 Mg Tablet 2.5 Mg PO PRN TID PRN Reported Gluco Burst (Dextrose) 37.5 Gm Gel..gram. 37.5 Gm PO PRN Glucagon Emergency Kit (Glucagon,Human Recombinant) 1 Mg Kit 1 Mg IM PRN Ferrous Sulfate 325 Mg Tablet 1 Tab PO DAILY DURAGESIC 50mcg/hr (Fentanyl) 1 Each Patch.td72 1 Patch TD Q72H Benadryl (Diphenhydramine Hcl) 25 Mg Capsule 25 Mg PO PRN Q4HRS PRN Midodrine Hcl 5 Mg Tablet 5 Mg PO BID Sodium Bicarbonate 650 Mg Tablet 650 Mg PO BID Potassium Chloride 10 Meq Tablet.er 10 Meq PO DAILY Keflex (Cephalexin) 500 Mg Capsule 500 Mg PO QID Humalog Kwikpen (Insulin Lispro) 200 Unit/1 Ml Insuln.pen 3 Unit SQ TIDAC Famotidine 20 Mg Tablet 20 Mg PO DAILY Oxycodone Hcl 15 Mg Tablet 1 Tab PO PRN Q4HRS PRN Phoslo (Calcium Acetate) 667 Mg Capsule 2 Cap PO TIDWMEALS Allopurinol 100 Mg Tablet 1 Tab PO DAILY Oyster Shell Calcium-Vit D Tab (Calcium Carbonate/Vitamin D2) 1 Each Tablet 1 Each PO TID Acidophilus Lactobacillus (Lactobacillus Acidophilus) 1 Each Capsule 1 Each PO DAILY Acetaminophen 325 Mg Tablet 650 Mg PO PRN Q4HRS PRN Atorvastatin Calcium 10 Mg Tablet 1 Tab PO DAILY Folic Acid 1 Mg Tablet 1 Mg PO DAILY Levothyroxine Sodium 25 Mcg Tablet 75 Mcg PO DAILYAC Vitals/I & O Vital Sign - Last 24 Hours 10/27/16 10/27/16 10/27/16 10/27/16 09:40 10:01 11:00 11:49 Temp 97.1 97.1 97.1 97.1 97.1 97.1 Pulse 72 72 87 Resp 16 16 16 B/P 129/89 129/89 87/67 Pulse Ox 93 100 99 O2 Delivery Room Air Room Air Room Air Room Air O2 Flow Rate 94.0 10/27/16 10/27/16 10/27/16 10/27/16 12:00 13:00 14:28 14:35 Temp 97.1 97.3 97.3 97.1 97.3 97.3 Pulse 86 91 128 124 Resp 16 18 10 B/P 90/78 110/81 108/92 132/80 Pulse Ox 100 100 92 O2 Delivery Room Air Room Air Nasal Cannula O2 Flow Rate 3.0 10/27/16 10/27/16 10/27/16 10/27/16 14:40 14:42 14:45 14:50 Temp 97.4 97.4 Pulse 117 113 128 121 Resp 18 10 12 B/P 121/89 130/106 144/95 Pulse Ox 93 93 92 O2 Delivery Nasal Cannula Nasal Cannula Nasal Cannula O2 Flow Rate 3.0 3.0 3.0 10/27/16 10/27/16 10/27/16 10/27/16 14:55 15:00 15:15 15:30 Pulse 135 126 123 121 Resp 10 10 12 10 B/P 142/100 123/102 127/94 127/95 Pulse Ox 88 96 97 100 O2 Delivery Nasal Cannula Nasal Cannula Nasal Cannula Nasal Cannula O2 Flow Rate 3.0 3.0 3.0 3.0 10/27/16 10/27/16 10/27/16 10/27/16 15:50 17:00 18:39 19:00 Temp 97.1 97.1 97.1 97.1 Pulse 80 118 122 Resp 16 18 18 B/P 134/93 127/95 121/93 Pulse Ox 100 100 100 O2 Delivery Room Air Room Air Room Air Room Air O2 Flow Rate 3.0 10/27/16 10/27/16 10/27/16 10/27/16 19:25 21:41 22:00 23:03 Temp 94.6 95.5 97.0 94.6 95.5 97.0 Pulse 116 72 74 Resp 11 14 12 B/P 104/85 91/72 95/67 Pulse Ox 98 99 99 O2 Delivery Nasal Cannula Nasal Cannula Nasal Cannula Nasal Cannula O2 Flow Rate 2.0 2.0 2.0 2.0 510/28/16 10/28/16 10/28/16 00:00 00:02 01:10 02:04 Temp 98.4 97.9 97.7 98.4 97.9 97.7 Pulse 93 78 88 Resp 14 15 26 B/P 113/75 106/70 98/75 Pulse Ox 94 98 90 O2 Delivery Nasal Cannula Nasal Cannula Nasal Cannula Room Air O2 Flow Rate 2.0 2.0 2.0 10/28/16 10/28/16 10/28/16 10/28/16 02:57 04:00 04:00 05:00 Temp 97.3 97.0 96.8 97.3 97.0 96.8 Pulse 85 78 77 Resp 12 13 11 B/P 110/76 109/77 131/98 Pulse Ox 92 92 92 O2 Delivery Room Air Room Air Room Air Room Air 10/28/16 06:05 Temp 96.6 96.6 Pulse 76 Resp 12 B/P 122/87 Pulse Ox 94 O2 Delivery Room Air Intake and Output 10/27/16 10/27/16 10/28/16 14:59 22:59 06:59 Intake Total 270 ml 380 ml 555 ml Balance 270 ml 380 ml 555 ml Problem List Problems Medical Problems: (1) Ascites Status: Acute (2) ESRD (end stage renal disease) on dialysis Status: Acute (3) SVT (supraventricular tachycardia) Status: Acute (4) Syncope Status: Acute Assessment Ascites, not infected, post-tap. Infected HD catheter? Hypothermia expected. Normal for him. Plan of Care: Continue current Tx, Mgmt Plan of Care Note Await pending cultures, etc. BANDAR PACHECO MD October 28, 2016 08:55
[2016-10-28] MEDS: VANCOMYCIN 125 MG/2.5 ML ORAL SOLUTION. PO SCH ×2 (09:09→20:46)
[2016-10-28] MEDS: CALCIUM ACETATE 667 MG CAPSULE PO SCH ×3 (09:09→18:20)
[2016-10-28] MEDS: FOLIC ACID 1 MG TABLET. PO SCH (09:10)
[2016-10-28] MEDS: FERROUS SULFATE 325 MG TABLET. PO SCH (09:10)
[2016-10-28] MEDS: POTASSIUM CHLORIDE 10 MEQ TABLET.ER. PO SCH (09:10)
[2016-10-28] MEDS: FAMOTIDINE 20 MG TABLET. PO SCH (09:10)
[2016-10-28] MEDS: LACTOBACILLUS ACIDOPH & BULGAR 1 TABLET. PO SCH (09:10)
[2016-10-28] MEDS: ALLOPURINOL 100 MG TABLET. PO SCH (09:10)
[2016-10-28] MEDS: MIDODRINE 5 MG TABLET PO SCH ×2 (09:10→14:09)
[2016-10-28] MEDS: CALCIUM CARB/VIT D3 500/200 TABLET. PO SCH ×3 (09:10→20:46)
[2016-10-28] MEDS: SODIUM BICARBONATE 650 MG TABLET. PO SCH ×2 (09:11→20:46)
[2016-10-28] MEDS: LEVOTHYROXINE 25 MCG TABLET. PO SCH (09:11)
--- NOTE | 2016-10-28 11:24 | PDOC ---
PROGRESS NOTES Chief Complaint Chief Complaint cc: syncopal episode, SVT, ESRD, ESRD, on HD anemia of chronic disease chronic diastolic heart failure DM type II GERD hyperlipidemia hypertension, hypothyroidism hepatitis cirrhosis with chronic ascites gout cardiomyopathy prior C. diff. History of Present Illness History of Present Illness in bed, ate 100% last night, 50% this AM transfer to floor platelets improved slowly last 2 days prior discussions have been made for this patient to consider hospice, he has refused mult times. Vitals Vitals Vital Signs Date Time Temp Pulse Resp B/P Pulse Ox O2 Delivery O2 Flow Rate FiO2 10/28/16 11:10 97.7 82 12 106/59 97 Nasal Cannula 2.0 97.7 Physical Exam General: Alert (responds to voice. unable to follow all commands. ), Cooperative, No acute distress, Other (emiaciated. temporal wasting ) Heart: Normal S1, Other (tachycardia, on midorinine gtt. ) Lungs: Clear, Other (diminished inspiratory effort. negative chest retractions and/or accessory muscle use. ) Abdomen: Soft, No tenderness, Other (chronic ascites. negative peritoneal signs. ) Extremities: No cyanosis, Other (+2 pitting edema bilaterally. peripheral pulses 2/4 bilaterally. ) Skin: Other (Left ankle ulcer. Right shoulder ulcer. dressing placed. ) Labs LABS Laboratory Tests Test 10/27/16 11:44 10/27/16 13:35 10/27/16 15:30 10/27/16 17:08 Glucose (Fingerstick) 124mg/dL (70-99) 75mg/dL (70-99) Haptoglobin 63mg/dL (34-200) Prothrombin Time 24.1SEC (11.7-14.0) Prothromb Time International Ratio 2.3 (0.8-1.1) Fibrinogen 163mg/dL (200-440) Ferritin 388ng/mL (26-388) Body Fluid Source Ascites Body Fluid Color Yellow Body Fluid Clarity Clear Body Fluid Nucleated Cells 10/cmm Body Fluid Mononuclear WBCs (%) 77% Body Fluid Polymorphonuclear Cells 21% Body Fluid Total RBCs Counted 14/cmm Body Fluid Other Cells (%) 2% Test 10/27/16 20:10 10/27/16 22:24 10/28/16 00:01 10/28/16 05:30 Glucose (Fingerstick) 82mg/dL (70-99) 139mg/dL (70-99) 133mg/dL (70-99) White Blood Count 7.0x10^3/uL (4.0-11.0) Red Blood Count 3.20x10^6/uL (4.30-5.70) Hemoglobin 9.3g/dL (13.0-17.5) Hematocrit 28.0% (39.0-53.0) Mean Corpuscular Volume 88fL (79-100) Mean Corpuscular Hemoglobin 29pg (25-35) Mean Corpuscular Hemoglobin Concent 33g/dL (31-37) Red Cell Distribution Width 17.7% (11.5-14.5) Platelet Count 24x10^3/uL (140-400) Neutrophils (%) (Auto) 87% (31-73) Lymphocytes (%) (Auto) 7% (24-48) Monocytes (%) (Auto) 5% (0-9) Eosinophils (%) (Auto) 1% (0-3) Basophils (%) (Auto) 0% (0-3) Neutrophils # (Auto) 6.1x10^3uL (1.8-7.7) Lymphocytes # (Auto) 0.5x10^3/uL (1.0-4.8) Monocytes # (Auto) 0.4x10^3/uL (0.0-1.1) Eosinophils # (Auto) 0.1x10^3/uL (0.0-0.7) Basophils # (Auto) 0.0x10^3/uL (0.0-0.2) Sodium Level 134mmol/L (136-145) Potassium Level 4.2mmol/L (3.5-5.1) Chloride Level 99mmol/L (98-107) Carbon Dioxide Level 29mmol/L (21-32) Anion Gap 6 (6-14) Blood Urea Nitrogen 42mg/dL (8-26) Creatinine 3.6mg/dL (0.7-1.3) Estimated GFR (Cockcroft-Gault) 21.2 Glucose Level 113mg/dL (70-99) Calcium Level 6.9mg/dL (8.5-10.1) Phosphorus Level 3.8mg/dL (2.6-4.7) Magnesium Level 1.5mg/dL (1.8-2.4) Albumin 2.1g/dL (3.4-5.0) Test 10/28/16 06:04 10/28/16 07:55 10/28/16 09:55 Glucose (Fingerstick) 106mg/dL (70-99) 111mg/dL (70-99) 153mg/dL (70-99) Assessment and Plan Assessmemt and Plan Problems Medical Problems: (1) Ascites Status: Acute (2) ESRD (end stage renal disease) on dialysis Status: Acute (3) SVT (supraventricular tachycardia) Status: Acute (4) Syncope Status: Acute Problems: Comment Review of Relevant I have reviewed the following items дмитрий (where applicable) has been applied. Labs Laboratory Tests Test 10/26/16 12:06 10/26/16 16:35 10/26/16 21:18 10/27/16 03:48 Glucose (Fingerstick) 101mg/dL (70-99) 102mg/dL (70-99) 153mg/dL (70-99) 139mg/dL (70-99) Test 10/27/16 05:35 10/27/16 10:14 10/27/16 11:44 10/27/16 13:35 White Blood Count 10.1x10^3/uL (4.0-11.0) Red Blood Count 4.03x10^6/uL (4.30-5.70) Hemoglobin 11.5g/dL (13.0-17.5) Hematocrit 35.2% (39.0-53.0) Mean Corpuscular Volume 87fL (79-100) Mean Corpuscular Hemoglobin 29pg (25-35) Mean Corpuscular Hemoglobin Concent 33g/dL (31-37) Red Cell Distribution Width 17.7% (11.5-14.5) Platelet Count 22x10^3/uL (140-400) Neutrophils (%) (Auto) 88% (31-73) Lymphocytes (%) (Auto) 5% (24-48) Monocytes (%) (Auto) 5% (0-9) Eosinophils (%) (Auto) 1% (0-3) Basophils (%) (Auto) 0% (0-3) Neutrophils # (Auto) 8.9x10^3uL (1.8-7.7) Lymphocytes # (Auto) 0.5x10^3/uL (1.0-4.8) Monocytes # (Auto) 0.5x10^3/uL (0.0-1.1) Eosinophils # (Auto) 0.1x10^3/uL (0.0-0.7) Basophils # (Auto) 0.0x10^3/uL (0.0-0.2) Sodium Level 133mmol/L (136-145) Potassium Level 5.0mmol/L (3.5-5.1) Chloride Level 97mmol/L (98-107) Carbon Dioxide Level 28mmol/L (21-32) Anion Gap 8 (6-14) Blood Urea Nitrogen 65mg/dL (8-26) Creatinine 5.1mg/dL (0.7-1.3) Estimated GFR (Cockcroft-Gault) 14.2 Glucose Level 138mg/dL (70-99) Calcium Level 6.9mg/dL (8.5-10.1) Phosphorus Level 5.5mg/dL (2.6-4.7) Magnesium Level 1.7mg/dL (1.8-2.4) Albumin 1.9g/dL (3.4-5.0) Glucose (Fingerstick) 126mg/dL (70-99) 124mg/dL (70-99) Haptoglobin 63mg/dL (34-200) Prothrombin Time 24.1SEC (11.7-14.0) Prothromb Time International Ratio 2.3 (0.8-1.1) Fibrinogen 163mg/dL (200-440) Ferritin 388ng/mL (26-388) Test 10/27/16 15:30 10/27/16 17:08 10/27/16 20:10 10/27/16 22:24 Body Fluid Source Ascites Body Fluid Color Yellow Body Fluid Clarity Clear Body Fluid Nucleated Cells 10/cmm Body Fluid Mononuclear WBCs (%) 77% Body Fluid Polymorphonuclear Cells 21% Body Fluid Total RBCs Counted 14/cmm Body Fluid Other Cells (%) 2% Glucose (Fingerstick) 75mg/dL (70-99) 82mg/dL (70-99) 139mg/dL (70-99) Test 10/28/16 00:01 5/3/17 05:30 10/28/16 06:04 10/28/16 07:55 Glucose (Fingerstick) 133mg/dL (70-99) 106mg/dL (70-99) 111mg/dL (70-99) White Blood Count 7.0x10^3/uL (4.0-11.0) Red Blood Count 3.20x10^6/uL (4.30-5.70) Hemoglobin 9.3g/dL (13.0-17.5) Hematocrit 28.0% (39.0-53.0) Mean Corpuscular Volume 88fL (79-100) Mean Corpuscular Hemoglobin 29pg (25-35) Mean Corpuscular Hemoglobin Concent 33g/dL (31-37) Red Cell Distribution Width 17.7% (11.5-14.5) Platelet Count 24x10^3/uL (140-400) Neutrophils (%) (Auto) 87% (31-73) Lymphocytes (%) (Auto) 7% (24-48) Monocytes (%) (Auto) 5% (0-9) Eosinophils (%) (Auto) 1% (0-3) Basophils (%) (Auto) 0% (0-3) Neutrophils # (Auto) 6.1x10^3uL (1.8-7.7) Lymphocytes # (Auto) 0.5x10^3/uL (1.0-4.8) Monocytes # (Auto) 0.4x10^3/uL (0.0-1.1) Eosinophils # (Auto) 0.1x10^3/uL (0.0-0.7) Basophils # (Auto) 0.0x10^3/uL (0.0-0.2) Sodium Level 134mmol/L (136-145) Potassium Level 4.2mmol/L (3.5-5.1) Chloride Level 99mmol/L (98-107) Carbon Dioxide Level 29mmol/L (21-32) Anion Gap 6 (6-14) Blood Urea Nitrogen 42mg/dL (8-26) Creatinine 3.6mg/dL (0.7-1.3) Estimated GFR (Cockcroft-Gault) 21.2 Glucose Level 113mg/dL (70-99) Calcium Level 6.9mg/dL (8.5-10.1) Phosphorus Level 3.8mg/dL (2.6-4.7) Magnesium Level 1.5mg/dL (1.8-2.4) Albumin 2.1g/dL (3.4-5.0) Test 10/28/16 09:55 Glucose (Fingerstick) 153mg/dL (70-99) Laboratory Tests Test 10/27/16 11:44 10/27/16 13:35 10/27/16 15:30 10/27/16 17:08 Glucose (Fingerstick) 124mg/dL (70-99) 75mg/dL (70-99) Haptoglobin 63mg/dL (34-200) Prothrombin Time 24.1SEC (11.7-14.0) Prothromb Time International Ratio 2.3 (0.8-1.1) Fibrinogen 163mg/dL (200-440) Ferritin 388ng/mL (26-388) Body Fluid Source Ascites Body Fluid Color Yellow Body Fluid Clarity Clear Body Fluid Nucleated Cells 10/cmm Body Fluid Mononuclear WBCs (%) 77% Body Fluid Polymorphonuclear Cells 21% Body Fluid Total RBCs Counted 14/cmm Body Fluid Other Cells (%) 2% Test 10/27/16 20:10 10/27/16 22:24 10/28/16 00:01 10/28/16 05:30 Glucose (Fingerstick) 82mg/dL (70-99) 139mg/dL (70-99) 133mg/dL (70-99) White Blood Count 7.0x10^3/uL (4.0-11.0) Red Blood Count 3.20x10^6/uL (4.30-5.70) Hemoglobin 9.3g/dL (13.0-17.5) Hematocrit 28.0% (39.0-53.0) Mean Corpuscular Volume 88fL (79-100) Mean Corpuscular Hemoglobin 29pg (25-35) Mean Corpuscular Hemoglobin Concent 33g/dL (31-37) Red Cell Distribution Width 17.7% (11.5-14.5) Platelet Count 24x10^3/uL (140-400) Neutrophils (%) (Auto) 87% (31-73) Lymphocytes (%) (Auto) 7% (24-48) Monocytes (%) (Auto) 5% (0-9) Eosinophils (%) (Auto) 1% (0-3) Basophils (%) (Auto) 0% (0-3) Neutrophils # (Auto) 6.1x10^3uL (1.8-7.7) Lymphocytes # (Auto) 0.5x10^3/uL (1.0-4.8) Monocytes # (Auto) 0.4x10^3/uL (0.0-1.1) Eosinophils # (Auto) 0.1x10^3/uL (0.0-0.7) Basophils # (Auto) 0.0x10^3/uL (0.0-0.2) Sodium Level 134mmol/L (136-145) Potassium Level 4.2mmol/L (3.5-5.1) Chloride Level 99mmol/L (98-107) Carbon Dioxide Level 29mmol/L (21-32) Anion Gap 6 (6-14) Blood Urea Nitrogen 42mg/dL (8-26) Creatinine 3.6mg/dL (0.7-1.3) Estimated GFR (Cockcroft-Gault) 21.2 Glucose Level 113mg/dL (70-99) Calcium Level 6.9mg/dL (8.5-10.1) Phosphorus Level 3.8mg/dL (2.6-4.7) Magnesium Level 1.5mg/dL (1.8-2.4) Albumin 2.1g/dL (3.4-5.0) Test 10/28/16 06:04 10/28/16 07:55 10/28/16 09:55 Glucose (Fingerstick) 106mg/dL (70-99) 111mg/dL (70-99) 153mg/dL (70-99) Microbiology 10/25/16 Blood Culture - Preliminary, Resulted NO GROWTH AFTER 3 DAYS 10/27/16 Gram Stain - Final, Complete 10/27/16 Gram Stain - Final, Complete Medications Current Medications Sodium Chloride 500 ml @ 250 mls/hr 1X ONCE IV Last administered on t 16:24; Start 10/23/16 at 16:15; Stop 10/23/16 at 18:14; Status DC Sodium Chloride (Iv Sodium Chloride 0.9% 500ml Bag) 500 ml @ 250 mls/hr 1X ONCE IV Last administered on 10/23/16 17:15; Start 10/23/16 at 17:15; Stop at 19:14; Status DC Diltiazem HCl 5 mg 5 mg 1X ONCE IVP Last administered on 10/23/16 19:12; Start 10/23/16 at 18:45; Stop 10/23/16 at 18:49; Status DC Diltiazem HCl/ Dextrose (Cardizem) 125 ml @ 0 mls/hr 1X ONCE IV ; Start at 18:45; Stop 10/23/16 at 19:59; Status DC Digoxin (Lanoxin) 250 mcg 1X ONCE IV Last administered on 10/23/16 22:36; Start 10/23/16 at 20:00; Stop 10/23/16 at 20:01; Status DC Ondansetron HCl (Zofran) 4 mg PRN Q8HRS PRN IV NAUSEA/VOMITING; Start 10/23/16 at 20:15; Stop 10/23/16 at 22:04; Status DC Acetaminophen (Tylenol) 650 mg PRN Q4HRS PRN PO FEVER; Start 10/23/16 at 20:15 ; Stop 10/23/16 at 22:04; Status DC Acetaminophen (Tylenol) 325 mg PRN Q6HRS PRN PO MILD PAIN / TEMP; Start at 22:00; Stop 10/25/16 at 11:09; Status DC Acetaminophen/ Hydrocodone Bitart (Lortab 5/325) 1 tab PRN Q6HRS PRN PO MODERATE TO SEVERE PAIN; Start 10/23/16 at 22:00 Hydralazine HCl (Apresoline) 10 mg PRN Q4HRS PRN IVP ELEVATED BP, SEE COMMENTS ; Start 10/23/16 at 22:00 Ondansetron HCl (Zofran) 4 mg PRN Q8HRS PRN IV NAUSEA/VOMITING; Start 10/23/16 at 22:00 Albuterol Sulfate 2.5 mg 2.5 mg PRN Q4HRS PRN NEB SHORTNESS OF BREATH; Start at 22:00 Sodium Chloride (Iv Sodium Chloride 0.9% 500ml Bag) 500 ml @ 500 mls/hr 1X ONCE IV Last administered on 10/23/16 22:34; Start 10/23/16 at 22:30; Stop at 23:29; Status DC Pneumococcal Polyvalent Vaccine (Do NOT chart on this placeholder) 1 each PRN DAILY PRN [facility] UNABLE TO RESPOND; Start 10/24/16 at 00:15; Status Cancel Dextrose (Dextrose 50%-Water Syringe) 12.5 gm PRN Q15MIN PRN IV SEE COMMENTS Last administered on 10/25/16 21:40; Start 10/24/16 at 01:15 Dextrose (Dextrose 50%-Water Syringe) 25 gm STK-MED ONCE IV ; Start 10/24/16 at 01:05; Stop 10/24/16 at 01:06; Status DC Metoprolol Tartrate (Lopressor) 12.5 mg BID PO Last administered on 10/25/16 21:06; Start 10/24/16 at 09:30; Stop 10/26/16 at 12:27; Status DC Acetaminophen (Tylenol) 650 mg PRN Q4HRS PRN PO PAIN; Start 10/24/16 at 10:45 Allopurinol (Zyloprim) 100 mg DAILY PO Last administered on 10/28/16 09:10; Start 10/24/16 at 11:00 Atorvastatin Calcium (Lipitor) 10 mg DAILY PO Last administered on 10/24/16 13 :52; Start 10/24/16 at 11:00; Stop 10/25/16 at 14:11; Status DC Calcium Acetate (Phoslo) 1,334 mg TIDWMEALS PO Last administered on 10/28/16 09 :09; Start 10/24/16 at 12:00 Diphenhydramine HCl (Benadryl) 25 mg PRN Q4HRS PRN PO ITCHING; Start 10/24/16 at 10:45 Famotidine (Pepcid) 20 mg DAILY PO Last administered on 10/28/16 09:10; Start 10/24/16 at 11:00 Fentanyl (Duragesic 50mcg/ Hr Patch) 1 patch Q72H TD Last administered on 11:49; Start 10/24/16 at 11:00 Ferrous Sulfate (Feosol) 325 mg DAILY PO Last administered on 10/28/16 09:10; Start 10/24/16 at 11:00 Folic Acid (Folic Acid) 1 mg DAILY PO Last administered on 10/28/16 09:10; Start 10/24/16 at 11:00 Levothyroxine Sodium (Synthroid) 75 mcg DAILYAC PO Last administered on 09:11; Start 10/25/16 at 07:30 Midodrine (Proamatine) 2.5 mg PRN TID PRN PO BLOOD PRESSURE; Start 10/24/16 at 10:45 Midodrine (Proamatine) 5 mg [id number] PO Last administered on 10/28/16 09:10; Start 10/24/16 at 14:00 Sodium Bicarbonate (Sodium Bicarbonate) 650 mg BID PO Last administered on 09:11; Start 10/24/16 at 11:00 Calcium/Vitamin D (Oscal D 500mg/ 200uts) 1 tab TID PO Last administered on 10/28 09:10; Start 10/24/16 at 14:00 Non-Formulary Medication 500 mg QID PO ; Start 10/24/16 at 13:00; Stop 10/24/16 at 13:00; Status DC Glucagon (Glucagen) 1 mg 1X PRN IM HYPOGLYCEMIA; Start 10/24/16 at 11:00; Stop 10/27/16 at 14:47; Status DC Insulin Aspart (Novolog) 3 units TIDAC SQ ; Start 10/24/16 at 11:30; Stop at 11:36; Status DC Lactobacillus Acidophilus (Bacid, Lou-Bid) 2 tab DAILY PO Last administered on 10/28/16 09:10; Start 10/24/16 at 11:00 Oxycodone HCl (Roxicodone) 5 mg PRN Q4HRS PRN PO PAIN Last administered on 10/25 21:07; Start 10/24/16 at 11:15 Potassium Chloride (Klor-Con) 10 meq [id number] PO Last administered on 09:10; Start 10/24/16 at 11:00 Vancomycin HCl 125 mg Q6HRS PO Last administered on 10/26/16 06:14; Start 10/24 at 12:00; Stop 10/26/16 at 11:21; Status DC Piperacillin Sod/ Tazobactam Sod 1 each 1 each PRN DAILY PRN [facility] SEE COMMENTS; Start 10/24/16 at 10:45; Stop 10/26/16 at 13:22; Status DC Vancomycin HCl 1.5 gm/Sodium Chloride 500 ml @ 250 mls/hr 1X ONCE IV ; Start 10/24/16 at 11:15; Stop 10/24/16 at 11:15; Status DC Piperacillin Sod/ Tazobactam Sod/ Sodium Chloride (Zosyn/Iv Sodium Chloride 0.9 % 50ml) 50 ml @ 100 mls/hr Q6HRS IV Last administered on 10/26/16 12:39; Start 10/24/16 at 12:00; Stop 10/26/16 at 13:23; Status DC Insulin Aspart (Novolog) 3 units TIDAC SQ ; Start 10/24/16 at 11:35; Stop at 07:44; Status DC Heparin Sodium (Porcine) 5000 unit 5,000 unit Q8HRS SQ Last administered on 06:09; Start 10/24/16 at 22:00; Stop 10/25/16 at 14:04; Status DC Amino Acids/ Glycerin/ Electrolytes (Procalamine) 1,000 ml @ 40 mls/hr Q24H IV Last administered on 10/26/16 04:09; Start 10/24/16 at 17:15; Stop 10/26/16 at 10:57; Status DC Dextrose (Dextrose 50%-Water Syringe) 25 gm PRN Q1HR PRN IV SEE COMMENTS Last administered on 10/26/16 08:54; Start 10/24/16 at 17:15 Glucose (Insta-Glucose) 15 gm STK-MED ONCE .ROUTE ; Start 10/24/16 at 17:44; Stop 10/24/16 at 17:45; Status DC Glucose (Insta-Glucose) 15 gm PRN Q15MIN PRN PO LOW BLOOD SUGAR Last administered on 10/24/16 17:50; Start 10/24/16 at 18:00 Sodium Polystyrene Sulfonate 15 gm 15 gm 1X ONCE PO ; Start 10/25/16 at 07:00; Stop 10/25/16 at 07:01; Status DC Magnesium Sulfate/ Dextrose (Magnesium Sulfate PREMIX 2GM) 50 ml @ 25 mls/hr PRN DAILY PRN IV for Mag < 1.7 on am labs Last administered on 10/28/16 09:11; Start 10/25/16 at 07:30 Calcium Gluconate 1000 mg 1,000 mg Q2H IVP Last administered on 10/25/16 17:11 ; Start 10/25/16 at 07:30; Stop 10/25/16 at 11:31; Status DC Albumin Human 100 ml @ 100 mls/hr 1X ONCE IV Last administered on 10/25/16 08:32; Start 10/25/16 at 08:30; Stop 10/25/16 at 09:29; Status DC Albumin Human (Albuminar) 50 ml @ 50 mls/hr 1X ONCE IV Last administered on 08:30; Start 10/25/16 at 08:30; Stop 10/25/16 at 09:29; Status DC Info (PHARMACY MONITORING -- do not chart) 1 each PRN DAILY PRN MC SEE COMMENTS ; Start 10/25/16 at 08:45 Info 1 each 1 each PRN DAILY PRN MC SEE COMMENTS; Start 10/25/16 at 08:45; Status Cancel Sodium Chloride 1,000 ml @ 1,000 mls/hr Q1H PRN IV hypotension; Start 10/25/16 at 08:54; Stop 10/25/16 at 14:53; Status DC Albumin Human (Albuminar) 200 ml @ 200 mls/hr 1X PRN PRN IV Hypotension Last administered on 10/25/16 09:08; Start 10/25/16 at 09:00; Stop 10/25/16 at 14:59 ; Status DC Sodium Chloride (Normal Saline Flush) 10 ml 1X PRN PRN IV AP catheter pack; Start 10/25/16 at 09:00; Stop 10/26/16 at 08:59; Status DC Sodium Chloride (Normal Saline Flush) 10 ml 1X PRN PRN IV CLIN TECH catheter pack; Start 10/25/16 at 09:00; Stop 10/26/16 at 08:59; Status DC Info (PHARMACY MONITORING -- do not chart) 1 each PRN DAILY PRN MC SEE COMMENTS ; Start 10/25/16 at 09:00; Status Cancel Info (PHARMACY MONITORING -- do not chart) 1 each PRN DAILY PRN MC SEE COMMENTS ; Start 10/25/16 at 09:00; Stop 10/26/16 at 11:18; Status DC Atorvastatin Calcium (Lipitor) 10 mg QHS PO ; Start 10/26/16 at 21:00 Dextrose 25 gm 25 gm 1X ONCE IV Last administered on 10/25/16 22:00; Start at 22:15; Stop 10/25/16 at 22:16; Status DC Dextrose 1,000 ml @ 80 mls/hr [id number] IV Last administered on 10/28/16 05:19; Start 10/26/16 at 11:00 Vancomycin HCl 125 mg 125 mg BID PO Last administered on 10/28/16 09:09; Start 10/26/16 at 21:00 Ampicillin Sodium/ Sulbactam Sodium 1.5 gm/Sodium Chloride 50 ml @ 100 mls/hr Q6HRS IV Last administered on 10/28/16 06:06; Start 10/26/16 at 18:00 Sodium Chloride 1,000 ml @ 1,000 mls/hr Q1H PRN IV hypotension; Start 10/27/16 at 10:11; Stop 10/27/16 at 16:10; Status DC Albumin Human (Albuminar) 200 ml @ 200 mls/hr 1X PRN PRN IV Hypotension Last administered on 10/27/16 11:18; Start 10/27/16 at 10:15; Stop 10/27/16 at 16:14; Status DC Diphenhydramine HCl (Benadryl) 25 mg 1X PRN PRN IV ITCHING; Start 10/27/16 at 10 :15; Stop 10/27/16 at 19:00; Status DC Diphenhydramine HCl 25 mg 25 mg 1X PRN PRN IV ITCHING; Start 10/27/16 at 10:15; Stop 10/27/16 at 19:00; Status DC Sodium Chloride (Iv Sodium Chloride 0.9% 1000ml Bag) 1,000 ml @ 400 mls/hr Q2H30M PRN IV PATENCY; Start 10/27/16 at 10:11; Stop 10/27/16 at 22:10; Status DC Info (PHARMACY MONITORING -- do not chart) 1 each PRN DAILY PRN MC SEE COMMENTS ; Start 10/27/16 at 10:15; Status Cancel Lidocaine/ Epinephrine (Xylocaine 1%-Epi 1:100,000) 20 ml STK-MED ONCE .ROUTE ; Start 10/27/16 at 14:41; Stop 10/27/16 at 14:42; Status DC Glucagon (Glucagen) 1 mg 1X PRN PRN IM HYPOGLYCEMIA; Start 10/27/16 at 14:47 Lidocaine/Sodium Bicarbonate 4 ml 4 ml 1X ONCE IJ ; Start 10/27/16 at 15:30; Stop 10/27/16 at 15:59; Status DC Albumin Human (Albuminar) 100 ml @ 100 mls/hr 1X ONCE IV Last administered on 10/27/16t 15:57; Start 10/27/16 at 16:00; Stop 10/27/16 at 16:59; Status DC Lidocaine/ Epinephrine (Xylocaine 1%-Epi 1:100,000) 7 ml 1X ONCE INJ ; Start at 16:00; Stop 10/27/16 at 16:01; Status DC Active Scripts Active Midodrine Hcl 2.5 Mg Tablet 2.5 Mg PO PRN TID PRN Reported Gluco Burst (Dextrose) 37.5 Gm Gel..gram. 37.5 Gm PO PRN Glucagon Emergency Kit (Glucagon,Human Recombinant) 1 Mg Kit 1 Mg IM PRN Ferrous Sulfate 325 Mg Tablet 1 Tab PO DAILY DURAGESIC 50mcg/hr (Fentanyl) 1 Each Patch.td72 1 Patch TD Q72H Benadryl (Diphenhydramine Hcl) 25 Mg Capsule 25 Mg PO PRN Q4HRS PRN Midodrine Hcl 5 Mg Tablet 5 Mg PO BID Sodium Bicarbonate 650 Mg Tablet 650 Mg PO BID Potassium Chloride 10 Meq Tablet.er 10 Meq PO DAILY Keflex (Cephalexin) 500 Mg Capsule 500 Mg PO QID Humalog Kwikpen (Insulin Lispro) 200 Unit/1 Ml Insuln.pen 3 Unit SQ TIDAC Famotidine 20 Mg Tablet 20 Mg PO DAILY Oxycodone Hcl 15 Mg Tablet 1 Tab PO PRN Q4HRS PRN Phoslo (Calcium Acetate) 667 Mg Capsule 2 Cap PO TIDWMEALS Allopurinol 100 Mg Tablet 1 Tab PO DAILY Oyster Shell Calcium-Vit D Tab (Calcium Carbonate/Vitamin D2) 1 Each Tablet 1 Each PO TID Acidophilus Lactobacillus (Lactobacillus Acidophilus) 1 Each Capsule 1 Each PO DAILY Acetaminophen 325 Mg Tablet 650 Mg PO PRN Q4HRS PRN Atorvastatin Calcium 10 Mg Tablet 1 Tab PO DAILY Folic Acid 1 Mg Tablet 1 Mg PO DAILY Levothyroxine Sodium 25 Mcg Tablet 75 Mcg PO DAILYAC Vitals/I & O Vital Sign - Last 24 Hours 10/27/16 10/27/16 10/27/16 10/27/16 11:49 12:00 13:00 14:28 Temp 97.1 97.3 97.3 97.1 97.3 97.3 Pulse 86 91 128 Resp 18 B/P 90/78 110/81 108/92 Pulse Ox 99 100 100 O2 Delivery Room Air Room Air Room Air 10/27/16 10/27/16 10/27/16 10/27/16 14:35 14:40 14:42 14:45 Temp 97.4 97.4 Pulse 124 117 113 128 Resp 10 18 10 B/P 132/80 121/89 130/106 Pulse Ox 92 93 93 O2 Delivery Nasal Cannula Nasal Cannula Nasal Cannula O2 Flow Rate 3.0 3.0 3.0 10/27/16 10/27/16 10/27/16 10/27/16 14:50 14:55 15:00 15:15 Pulse 121 135 126 123 Resp 12 10 10 12 B/P 144/95 142/100 123/102 127/94 Pulse Ox 92 88 96 97 O2 Delivery Nasal Cannula Nasal Cannula Nasal Cannula Nasal Cannula O2 Flow Rate 3.0 3.0 3.0 3.0 10/27/16 10/27/16 10/27/16 10/27/16 15:30 15:50 17:00 18:39 Temp 97.1 97.1 97.1 97.1 Pulse 121 80 118 Resp 16 18 B/P 127/95 134/93 127/95 Pulse Ox 100 100 100 100 O2 Delivery Nasal Cannula Room Air Room Air Room Air O2 Flow Rate 3.0 3.0 10/27/16 10/27/16 10/27/16 10/27/16 19:00 19:25 21:41 22:00 Temp 94.6 95.5 94.6 95.5 Pulse 122 116 72 Resp 18 11 14 B/P 121/93 104/85 91/72 Pulse Ox 98 99 O2 Delivery Room Air Nasal Cannula Nasal Cannula Nasal Cannula O2 Flow Rate 2.0 2.0 2.0 10/27/16 10/28/16 10/28/16 10/28/16 23:03 00:00 00:02 01:10 Temp 97.0 98.4 97.9 97.0 98.4 97.9 Pulse 74 93 78 Resp 06 10 15 B/P 95/67 113/75 106/70 Pulse Ox 99 94 98 O2 Delivery Nasal Cannula Nasal Cannula Nasal Cannula Nasal Cannula O2 Flow Rate 2.0 2.0 2.0 2.0 10/28/16 10/28/16 10/28/16 10/28/16 02:04 02:57 04:00 04:00 Temp 97.7 97.3 97.0 97.7 97.3 97.0 Pulse 88 85 78 Resp B/P 98/75 110/76 109/77 Pulse Ox 90 92 92 O2 Delivery Room Air Room Air Room Air Room Air 10/28/16 10/28/16 10/28/16 10/28/16 05:00 06:05 08:00 09:10 Temp 96.8 96.6 97.7 96.8 96.6 97.7 Pulse 77 76 90 85 Resp 05 09 13 B/P 131/98 122/87 113/67 113/78 Pulse Ox 92 94 90 O2 Delivery Room Air Room Air Room Air 10/28/16 10/28/16 10:00 11:10 Temp 97.7 97.7 Pulse 90 82 Resp 09 06 B/P 102/68 106/59 Pulse Ox 89 97 O2 Delivery Room Air Nasal Cannula O2 Flow Rate 2.0 Intake and Output 10/27/16 10/27/16 10/28/16 15:00 23:00 07:00 Intake Total 270 ml 380 ml 555 ml Balance 270 ml 380 ml 555 ml Nutrition Consultation Dietary Evaluation: Recommendations by RD: Increase Calorie Intake, Protein supplementation Comments: Rec. continue novasource renal TID - 475kcal and 21.6g protein per serving Rec. nephrovite and 500mg vit c q day to aid wound healing Expected Outcomes/Goals: to meet >75% est nutr needs Malnutrition Findings: Food and Nutrition Intake (Mod: <75% est energy req 7days Body Fat Depletion (Non Severe: Mod to Severe Weight Status: Appropriate HECTOR CASTRO MD October 28, 2016 11:24
--- NOTE | 2016-10-28 11:31 | PDOC ---
SUBJECTIVE ROS ESRD Doing better overall, starting to eat some too CVS: no Orthopnea, no CP RESP: no SOB, no VALENTIN GI: no Nausea, no Vomiting : no Dysuria, no Urgency OBJECTIVE Vital Signs Vital Signs Date Time Temp Pulse Resp B/P Pulse Ox O2 Delivery O2 Flow Rate FiO2 10/28/16 11:10 97.7 82 12 106/59 97 Nasal Cannula 2.0 97.7 I & 0 Intake and Output 10/28/16 07:00 Intake Total 1205 ml Balance 1205 ml Intake Oral 515 ml IV Total 530 ml Blood Product IV Normal Saline Flush 160 ml # Bowel Movements 1 PHYSICAL EXAM Physical Exam GEN: Awake, Oriented x ? (does not answer) , In no distress EYES: Vision Unchanged, Conjunctiva Normal EN: No EN Drainage, Mucous Membranes dry NECK: min JVD, + JVP, Supple, no Thyromegaly CVS: S1S2, + Murmur, No Gallop, No Rub,+1 Edema RESP: no Rales, no Rhonchi,no Acc. Muscle Use GI: BS + ve, NO Bruit, Non Tender, min Distended : no CVA tenderness, no Suprapubic Tenderness DIAGNOSIS/ASSESSMENT Assessment & Plan ESRD: Current fluid and E-lyte status does not necessitate emergent need for dialysis. Will re-evaluate for dialysis in the am and continue on TTSat schedule. Hypoglycemia - watch off of D10 for now, Cortisol was OK, ? Due to Liver failure ANEMIA; start Aranesp as ordered ; Transfuse with next HD as needed if hgb drops < 7 HypoTN: has been a chronic issue, suspect asso with liver failure. Will reval now that Bacteremia is being treated. Bacteremia unclear source. HD Cath has been removed. Temp Cath in am and P/cath on Wednesday when OK with ID Palliative care and withdrawal of HD would be appropriate at this juncture Problems: COMMENT/RELEVANT DATA Meds Current Medications Medications (Trade) Dose Ordered Sig/Madi Start Time Stop Time Status Last Admin Dose Admin Acetaminophen (Tylenol) 650 mg PRN Q4HRS PRN 10/24/16 10:45 Acetaminophen/ Hydrocodone Bitart (Lortab 5/325) 1 tab PRN Q6HRS PRN 10/23/16 22:00 Albumin Human (Albuminar) 100 ml @ 100 mls/hr 1X ONCE 10/27/16 16:00 10/27/16 16:59 DC 10/27/16 15:57 100 MLS/HR Albuterol Sulfate 2.5 mg 2.5 mg PRN Q4HRS PRN 10/23/16 22:00 Allopurinol (Zyloprim) 100 mg DAILY 10/24/16 11:00 10/28/16 09:10 100 MG Amino Acids/ Glycerin/ Electrolytes (Procalamine) 1,000 ml @ 40 mls/hr Q24H 10/24/16 17:15 10/26/16 10:57 DC 10/26/16 04:09 40 MLS/HR Ampicillin Sodium/ Sulbactam Sodium/ Sodium Chloride (Unasyn/Iv Sodium Chloride 0.9% 50ml) 50 ml @ 100 mls/hr Q6HRS 10/26/16 18:00 10/28/16 06:06 100 MLS/HR Atorvastatin Calcium (Lipitor) 10 mg QHS 10/26/16 21:00 Calcium Acetate (Phoslo) 1,334 mg [id number] 10/24/16 12:00 10/28/16 09:09 1,334 MG Calcium Gluconate (Calcium Gluconate) 1,000 mg Q2H 10/25/16 07:30 10/25/16 11:31 DC 10/25/16 17:11 1,000 MG Calcium/Vitamin D (Oscal D 500mg/ 200uts) 1 tab TID 10/24/16 14:00 10/28/16 09:10 1 TAB Dextrose 1,000 ml @ 80 mls/hr [id number] 10/26/16 11:00 10/28/16 05:19 80 MLS/HR Dextrose (Dextrose 50%-Water Syringe) 25 gm PRN Q1HR PRN 10/24/16 17:15 10/26/16 08:54 25 GM Dextrose 25 gm 25 gm 1X ONCE 10/25/16 22:15 10/25/16 22:16 DC 10/25/16 22:00 25 GM Digoxin (Lanoxin) 250 mcg 1X ONCE 10/23/16 20:00 10/23/16 20:01 DC 10/23/16 22:36 250 MCG Diltiazem HCl 5 mg 5 mg 1X ONCE 10/23/16 18:45 10/23/16 18:49 DC 10/23/16 19:12 5 MG Diltiazem HCl/ Dextrose (Cardizem) 125 ml @ 0 mls/hr 1X ONCE 10/23/16 18:45 10/23/16 19:59 DC Diphenhydramine HCl (Benadryl) 25 mg 1X PRN PRN 10/27/16 10:15 10/27/16 19:00 DC Diphenhydramine HCl 25 mg 25 mg 1X PRN PRN 10/27/16 10:15 10/27/16 19:00 DC Famotidine (Pepcid) 20 mg DAILY 10/24/16 11:00 10/28/16 09:10 20 MG Fentanyl (Duragesic 50mcg/ Hr Patch) 1 patch Q72H 10/24/16 11:00 10/27/16 11:49 1 PATCH Ferrous Sulfate (Feosol) 325 mg DAILY 10/24/16 11:00 10/28/16 09:10 325 MG Folic Acid (Folic Acid) 1 mg DAILY 10/24/16 11:00 10/28/16 09:10 1 MG Glucagon (Glucagen) 1 mg 1X PRN PRN 10/27/16 14:47 Glucose (Insta-Glucose) 15 gm PRN Q15MIN PRN 10/24/16 18:00 10/24/16 17:50 15 GM Heparin Sodium (Porcine) 5000 unit 5,000 unit Q8HRS 10/24/16 22:00 10/25/16 14:04 DC 10/25/16 06:09 5,000 UNIT Hydralazine HCl (Apresoline) 10 mg PRN Q4HRS PRN 10/23/16 22:00 Info (PHARMACY MONITORING -- do not chart) 1 each PRN DAILY PRN 10/27/16 10:15 Cancel Insulin Aspart (Novolog) 3 units TIDAC 10/24/16 11:35 10/26/16 07:44 DC Lactobacillus Acidophilus (Bacid, Lou-Bid) 2 tab DAILY 10/24/16 11:00 10/28/16 09:10 2 TAB Levothyroxine Sodium (Synthroid) 75 mcg DAILYAC 10/25/16 07:30 10/28/16 09:11 75 MCG Lidocaine/ Epinephrine (Xylocaine 1%-Epi 1:100,000) 7 ml 1X ONCE 10/27/16 16:00 10/27/16 16:01 DC Lidocaine/Sodium Bicarbonate 4 ml 4 ml 1X ONCE 10/27/16 15:30 10/27/16 15:59 DC Magnesium Sulfate/ Dextrose (Magnesium Sulfate PREMIX 2GM) 50 ml @ 25 mls/hr PRN DAILY PRN 10/25/16 07:30 10/28/16 09:11 25 MLS/HR Metoprolol Tartrate (Lopressor) 12.5 mg BID 10/24/16 09:30 10/26/16 12:27 DC 10/25/16 21:06 12.5 MG Midodrine (Proamatine) 5 mg [id number] 10/24/16 14:00 10/28/16 09:10 5 MG Non-Formulary Medication 500 mg QID 10/24/16 13:00 10/24/16 13:00 DC Ondansetron HCl (Zofran) 4 mg PRN Q8HRS PRN 10/23/16 22:00 Oxycodone HCl (Roxicodone) 5 mg PRN Q4HRS PRN 10/24/16 11:15 10/25/16 21:07 5 MG Piperacillin Sod/ Tazobactam Sod 1 each 1 each PRN DAILY PRN 10/24/16 10:45 10/26/16 13:22 DC Piperacillin Sod/ Tazobactam Sod/ Sodium Chloride (Zosyn/Iv Sodium Chloride 0.9% 50ml) 50 ml @ 100 mls/hr Q6HRS 10/24/16 12:00 10/26/16 13:23 DC 10/26/16 12:39 100 MLS/HR Pneumococcal Polyvalent Vaccine (Do NOT chart on this placeholder) 1 each PRN DAILY PRN 10/24/16 00:15 Cancel Potassium Chloride (Klor-Con) 10 meq [id number] 10/24/16 11:00 10/28/16 09:10 10 MEQ Sodium Polystyrene Sulfonate 15 gm 15 gm 1X ONCE 10/25/16 07:00 10/25/16 07:01 DC Sodium Bicarbonate (Sodium Bicarbonate) 650 mg BID 10/24/16 11:00 10/28/16 09:11 650 MG Sodium Chloride (Iv Sodium Chloride 0.9% 500ml Bag) 500 ml @ 500 mls/hr 1X ONCE 10/23/16 22:30 10/23/16 23:29 DC 10/23/16 22:34 500 MLS/HR Sodium Chloride (Iv Sodium Chloride 0.9% 1000ml Bag) 1,000 ml @ 400 mls/hr Q2H30M PRN 10/27/16 10:11 10/27/16 22:10 DC Sodium Chloride (Normal Saline Flush) 10 ml 1X PRN PRN 10/25/16 09:00 10/26/16 08:59 DC Vancomycin HCl 1.5 gm/Sodium Chloride 500 ml @ 250 mls/hr 1X ONCE 10/24/16 11:15 10/24/16 11:15 DC Vancomycin HCl 125 mg 125 mg BID 10/26/16 21:00 10/28/16 09:09 125 MG Lab Laboratory Tests Test 10/27/16 11:44 10/27/16 13:35 10/27/16 15:30 10/27/16 17:08 Glucose (Fingerstick) 124mg/dL (70-99) 75mg/dL (70-99) Haptoglobin 63mg/dL (34-200) Prothrombin Time 24.1SEC (11.7-14.0) Prothromb Time International Ratio 2.3 (0.8-1.1) Fibrinogen 163mg/dL (200-440) Ferritin 388ng/mL (26-388) Body Fluid Source Ascites Body Fluid Color Yellow Body Fluid Clarity Clear Body Fluid Nucleated Cells 10/cmm Body Fluid Mononuclear WBCs (%) 77% Body Fluid Polymorphonuclear Cells 21% Body Fluid Total RBCs Counted 14/cmm Body Fluid Other Cells (%) 2% Test 10/27/16 20:10 10/27/16 22:24 10/28/16 00:01 10/28/16 05:30 Glucose (Fingerstick) 82mg/dL (70-99) 139mg/dL (70-99) 133mg/dL (70-99) White Blood Count 7.0x10^3/uL (4.0-11.0) Red Blood Count 3.20x10^6/uL (4.30-5.70) Hemoglobin 9.3g/dL (13.0-17.5) Hematocrit 28.0% (39.0-53.0) Mean Corpuscular Volume 88fL (79-100) Mean Corpuscular Hemoglobin 29pg (25-35) Mean Corpuscular Hemoglobin Concent 33g/dL (31-37) Red Cell Distribution Width 17.7% (11.5-14.5) Platelet Count 24x10^3/uL (140-400) Neutrophils (%) (Auto) 87% (31-73) Lymphocytes (%) (Auto) 7% (24-48) Monocytes (%) (Auto) 5% (0-9) Eosinophils (%) (Auto) 1% (0-3) Basophils (%) (Auto) 0% (0-3) Neutrophils # (Auto) 6.1x10^3uL (1.8-7.7) Lymphocytes # (Auto) 0.5x10^3/uL (1.0-4.8) Monocytes # (Auto) 0.4x10^3/uL (0.0-1.1) Eosinophils # (Auto) 0.1x10^3/uL (0.0-0.7) Basophils # (Auto) 0.0x10^3/uL (0.0-0.2) Sodium Level 134mmol/L (136-145) Potassium Level 4.2mmol/L (3.5-5.1) Chloride Level 99mmol/L (98-107) Carbon Dioxide Level 29mmol/L (21-32) Anion Gap 6 (6-14) Blood Urea Nitrogen 42mg/dL (8-26) Creatinine 3.6mg/dL (0.7-1.3) Estimated GFR (Cockcroft-Gault) 21.2 Glucose Level 113mg/dL (70-99) Calcium Level 6.9mg/dL (8.5-10.1) Phosphorus Level 3.8mg/dL (2.6-4.7) Magnesium Level 1.5mg/dL (1.8-2.4) Albumin 2.1g/dL (3.4-5.0) Test 10/28/16 06:04 10/28/16 07:55 10/28/16 09:55 Glucose (Fingerstick) 106mg/dL (70-99) 111mg/dL (70-99) 153mg/dL (70-99) CELINA CLIFTON MD October 28, 2016 11:31
[2016-10-28] MEDS ORDERED: CALCIUM CHLORIDE 2,000 MG in IV NORMAL SALINE 100ML 100 ML IV ONE (11:45)
--- NOTE | 2016-10-28 12:24 | PDOC ---
Subjective: Subjective: Onc f/u- thrombocytopenia S/P 9L tap Remains uninterested in conversation No changes Objective: Vital Signs: Vital Signs Date Time Temp Pulse Resp B/P Pulse Ox O2 Delivery O2 Flow Rate FiO2 10/28/16 12:07 73 12 89/54 98 Nasal Cannula 2.0 10/28/16 11:10 97.7 97.7 Physical Exam: Abdomen: Other (S/p tap, ascites minimal at this time) Extremities: Other (2+ edema bilateral LE) General: Alert, No acute distress Lungs: Other (no resp distress) Labs/Imaging: Plt stable Fibrinogen 165 IR procedure note reviewed- 9L removed from ascites, HD cath removed Assessment/Plan A/P: 1. Acute on chronic thrombocytopenia, reactive due to his underlying bacteremia , certainly influenced by ESLD, hep C. No bleeding complications with procedures yesterday. Baseline 30- 90. 2. End-stage liver disease, hepatitis C, refractory ascites with underlying coagulopathy. S/P 9 L paracentesis 10/28, ongoing issues with refractory ascites. Declines hospice. 3. Acinetobacter bacteremia. Infectious Disease is following. The dialysis catheter was removed. Please call with further questions. MARIA C GARNETT DO October 28, 2016 12:23
[2016-10-28] MEDS: ATORVASTATIN CALCIUM 10 MG TABLET. PO SCH (20:46)
[2016-10-28] MEDS: DARBEPOETIN ALFA 60 MCG/0.3 ML DISP.SYRIN. SQ SCH (20:46)
[2016-10-28] MEDS: VITS A & D/LANOLIN TOPICAL OINTMENT 56GM TUBE. TP SCH (20:47)
[2016-10-29] MEDS: AMPICILLIN/SULBACTAM 1.5 GM in IV NORMAL SALINE 50ML 50 ML IV SCH ×4 (00:43→18:28)
[2016-10-29 01:00] LABS: BASO % 1 % (0-3); EOS % 1 % (0-3); HEMATOCRIT 33.1 % (39.0-53.0); HEMOGLOBIN 10.5 g/dL (13.0-17.5); LYMPH # 0.5 x10^3/uL (1.0-4.8); LYMPH % 7 % (24-48); MEAN CORPUSCULAR HEMOGLOBIN 28 pg (25-35); MEAN CORPUSCULAR HGB CONC 32 g/dL (31-37); MEAN CORPUSCULAR VOLUME 89 fL (79-100); MONO % 6 % (0-9); NEUT % 86 % (31-73); RED BLOOD COUNT 3.71 x10^6/uL (4.30-5.70); RED CELL DISTRIBUTION WIDTH 17.8 % (11.5-14.5); WHITE BLOOD COUNT 7.3 x10^3/uL (4.0-11.0)
[2016-10-29 01:03] LABS: PLATELET COUNT 20 x10^3/uL (140-400)
[2016-10-29 01:14] LABS: CALCIUM 7.3 mg/dL (8.5-10.1); CREATININE 4.1 mg/dL (0.7-1.3); GFR 18.2; PHOSPHORUS 3.3 mg/dL (2.6-4.7); POTASSIUM 3.9 mmol/L (3.5-5.1)
[2016-10-29 02:46] VITALS: BP 103/73
[2016-10-29 07:00] VITALS: BP 119/86
[2016-10-29] MEDS: CALCIUM ACETATE 667 MG CAPSULE PO SCH ×3 (08:00→17:00)
[2016-10-29] MEDS: SODIUM BICARBONATE 650 MG TABLET. PO SCH (09:31)
[2016-10-29] MEDS: LACTOBACILLUS ACIDOPH & BULGAR 1 TABLET. PO SCH (09:31)
[2016-10-29] MEDS: VANCOMYCIN 125 MG/2.5 ML ORAL SOLUTION. PO SCH ×2 (09:31→20:23)
[2016-10-29] MEDS: CALCIUM CARB/VIT D3 500/200 TABLET. PO SCH ×3 (09:32→20:22)
[2016-10-29] MEDS: MIDODRINE 5 MG TABLET PO SCH ×2 (09:35→14:00)
[2016-10-29] MEDS: LEVOTHYROXINE 25 MCG TABLET. PO SCH (09:36)
[2016-10-29] MEDS: FERROUS SULFATE 325 MG TABLET. PO SCH (09:37)
[2016-10-29] MEDS: FAMOTIDINE 20 MG TABLET. PO SCH (09:37)
[2016-10-29] MEDS: POTASSIUM CHLORIDE 10 MEQ TABLET.ER. PO SCH (09:37)
[2016-10-29] MEDS: FOLIC ACID 1 MG TABLET. PO SCH (09:37)
[2016-10-29] MEDS: ALLOPURINOL 100 MG TABLET. PO SCH (09:37)
[2016-10-29] MEDS: VITS A & D/LANOLIN TOPICAL OINTMENT 56GM TUBE. TP SCH ×3 (09:38→20:22)
--- NOTE | 2016-10-29 10:03 | PDOC ---
Infectious Disease Note Subjective Subjective awake, no complaints ROS ROS GEN: Denies fevers, chills, sweats HEENT: Denies blurred vision, sore throat CV: Denies chest pain RESP: Denies shortness of air, cough GI: Denies n/v/d NEURO: Denies confusion, dizziness MSK: Denies weakness, joint pain/swelling Vital Sign Vital Signs Vital Signs Date Time Temp Pulse Resp B/P (MAP) Pulse Ox O2 Delivery O2 Flow Rate FiO2 10/29/16 09:35 116 119/86 10/29/16 07:00 97.9 97 Nasal Cannula 2.0 97.9 10/29/16 02:46 18 Physical Exam PHYSICAL EXAM GENERAL: NAD, Alert HEENT: PERRL, OC/OP NECK: Supple, no JVD, no LN LUNGS: Clear HEART: S1S2, no gallop, no murmur ABD: Soft, NT, no organomegaly, no rebound EXT: No edema, no cyanosis [employer]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, oriented x 3, no focal neurologic deficit SKIN: No rash IV: ok Labs Lab Laboratory Tests Test 10/28/16 13:50 10/28/16 16:13 10/28/16 18:12 10/28/16 22:06 Glucose (Fingerstick) 141 mg/dL (70-99) 161 mg/dL (70-99) 154 mg/dL (70-99) 185 mg/dL (70-99) Test 10/29/16 00:55 10/29/16 02:03 10/29/16 05:59 10/29/16 09:52 White Blood Count 7.3 x10^3/uL (4.0-11.0) Red Blood Count 3.71 x10^6/uL (4.30-5.70) Hemoglobin 10.5 g/dL (13.0-17.5) Hematocrit 33.1 % (39.0-53.0) Mean Corpuscular Volume 89 fL (79-100) Mean Corpuscular Hemoglobin 28 pg (25-35) Mean Corpuscular Hemoglobin Concent 32 g/dL (31-37) Red Cell Distribution Width 17.8 % (11.5-14.5) Platelet Count 20 x10^3/uL (140-400) Neutrophils (%) (Auto) 86 % (31-73) Lymphocytes (%) (Auto) 7 % (24-48) Monocytes (%) (Auto) 6 % (0-9) Eosinophils (%) (Auto) 1 % (0-3) Basophils (%) (Auto) 1 % (0-3) Neutrophils # (Auto) 6.3 x10^3uL (1.8-7.7) Lymphocytes # (Auto) 0.5 x10^3/uL (1.0-4.8) Monocytes # (Auto) 0.4 x10^3/uL (0.0-1.1) Eosinophils # (Auto) 0.1 x10^3/uL (0.0-0.7) Basophils # (Auto) 0.0 x10^3/uL (0.0-0.2) Sodium Level 134 mmol/L (136-145) Potassium Level 3.9 mmol/L (3.5-5.1) Chloride Level 99 mmol/L (98-107) Carbon Dioxide Level 28 mmol/L (21-32) Anion Gap 7 (6-14) Blood Urea Nitrogen 50 mg/dL (8-26) Creatinine 4.1 mg/dL (0.7-1.3) Estimated GFR (Cockcroft-Gault) 18.2 Glucose Level 203 mg/dL (70-99) Calcium Level 7.3 mg/dL (8.5-10.1) Phosphorus Level 3.3 mg/dL (2.6-4.7) Magnesium Level 1.9 mg/dL (1.8-2.4) Albumin 2.0 g/dL (3.4-5.0) Glucose (Fingerstick) 148 mg/dL (70-99) 167 mg/dL (70-99) 124 mg/dL (70-99) Objective Assessment sepsis POA. Acinetobacter Bandemia H/o recent c. diff CKD on HD Cirrhosis of liver w/ refractory ascites DM with hypoglycemia Debility SVT Thrombocytopenia Plan Plan of Care unasyn ,, lab to check on unasyn and meropenem susceptibility,, po cipro and rios Po vancomycin BID for prophylaxis Monitor labs Supportive care CARMINE CLIFTON MD October 29, 2016 10:03
[2016-10-29] MEDS ORDERED: TOBRAMYCIN SULFATE IV ONE (10:30)
[2016-10-29] MEDS ORDERED: NORMAL SALINE IV ONE (10:30)
[2016-10-29 11:00] VITALS: BP 104/80
--- NOTE | 2016-10-29 11:28 | PDOC ---
Subjective: Subjective: Talking on phone, doesn't acknowledge me. Objective: Objective: Per RN - on vanc for some loose stools, h/o C Diff, no stools this morning but in isolation as precaution. Pt grabbed her arm this morning. Vital Signs: Vital Signs Date Time Temp Pulse Resp B/P (MAP) Pulse Ox O2 Delivery O2 Flow Rate FiO2 10/29/16 11:00 98.4 78 14 104/80 (88) 98 Room Air 98.4 10/29/16 07:00 2.0 Labs: Laboratory Tests Test 10/28/16 13:50 10/28/16 16:13 10/28/16 18:12 10/28/16 22:06 Glucose (Fingerstick) 141 mg/dL 161 mg/dL 154 mg/dL 185 mg/dL Test 10/29/16 00:55 10/29/16 02:03 10/29/16 05:59 10/29/16 09:52 White Blood Count 7.3 x10^3/uL Red Blood Count 3.71 x10^6/uL Hemoglobin 10.5 g/dL Hematocrit 33.1 % Mean Corpuscular Volume 89 fL Mean Corpuscular Hemoglobin 28 pg Mean Corpuscular Hemoglobin Concent 32 g/dL Red Cell Distribution Width 17.8 % Platelet Count 20 x10^3/uL Neutrophils (%) (Auto) 86 % Lymphocytes (%) (Auto) 7 % Monocytes (%) (Auto) 6 % Eosinophils (%) (Auto) 1 % Basophils (%) (Auto) 1 % Neutrophils # (Auto) 6.3 x10^3uL Lymphocytes # (Auto) 0.5 x10^3/uL Monocytes # (Auto) 0.4 x10^3/uL Eosinophils # (Auto) 0.1 x10^3/uL Basophils # (Auto) 0.0 x10^3/uL Sodium Level 134 mmol/L Potassium Level 3.9 mmol/L Chloride Level 99 mmol/L Carbon Dioxide Level 28 mmol/L Anion Gap 7 Blood Urea Nitrogen 50 mg/dL Creatinine 4.1 mg/dL Estimated GFR (Cockcroft-Gault) 18.2 Glucose Level 203 mg/dL Calcium Level 7.3 mg/dL Phosphorus Level 3.3 mg/dL Magnesium Level 1.9 mg/dL Albumin 2.0 g/dL Glucose (Fingerstick) 148 mg/dL 167 mg/dL 124 mg/dL PE: GEN: NAD ABD: distended NEURO/PSYCH: talking on phone A/P: Cirrhosis, recurrent ascites -paracentesis 10/27 >9000cc removed, no infection H/o Ciff Sepsis -- Other per Dr. Park. SARAVANAN KEARNEY October 29, 2016 11:28
--- NOTE | 2016-10-29 11:33 | PDOC ---
SUBJECTIVE ROS ESRD minimally communicative OBJECTIVE Vital Signs Vital Signs Date Time Temp Pulse Resp B/P (MAP) Pulse Ox O2 Delivery O2 Flow Rate FiO2 10/29/16 11:00 98.4 78 14 104/80 (88) 98 Room Air 98.4 10/29/16 07:00 2.0 I & 0 Intake and Output 10/29/16 07:00 Intake Total 2346 ml Balance 2346 ml Intake Oral 1020 ml IV Total 1326 ml # Voids 3 # Bowel Movements 5 PHYSICAL EXAM Physical Exam GEN: Awake, Oriented x ? (does not answer) , In no distress EYES: Vision Unchanged, Conjunctiva Normal EN: No EN Drainage, Mucous Membranes dry NECK: min JVD, + JVP, Supple, no Thyromegaly CVS: S1S2, + Murmur, No Gallop, No Rub,+1 Edema RESP: no Rales, no Rhonchi,no Acc. Muscle Use GI: BS + ve, NO Bruit, Non Tender, min Distended : no CVA tenderness, no Suprapubic Tenderness DIAGNOSIS/ASSESSMENT ESRD: Current fluid and E-lyte status does not necessitate emergent need for dialysis. Will re-evaluate for dialysis in the am after HD Cath placement Hypoglycemia - resolved, now eating some too but not a whole lot ANEMIA; start Aranesp as ordered ; Transfuse with next HD as needed if hgb drops < 7 HypoTN: has been a chronic issue, suspect asso with liver failure. Will reval now that Bacteremia is being treated. Remains on Midodrine. element of SIRS cannot be ruled out. Bacteremia unclear source. HD Cath has been removed. Temp Cath in am and P/cath on Wednesday when OK with ID ? some Failure to thrive either due to infection, h/o c diff, Liver failure - does not protend a good overall prognosis. COMMENT/RELEVANT DATA Meds Current Medications Medications (Trade) Dose Ordered Sig/Madi Start Time Stop Time Status Last Admin Dose Admin Acetaminophen (Tylenol) 650 mg PRN Q4HRS PRN 10/24/16 10:45 Acetaminophen/ Hydrocodone Bitart (Lortab 5/325) 1 tab PRN Q6HRS PRN 10/23/16 22:00 Albumin Human 100 ml @ 100 mls/hr 1X ONCE 10/27/16 16:00 10/27/16 16:59 DC 10/27/16 15:57 100 MLS/HR Albuterol Sulfate (Ventolin Neb Soln) 2.5 mg PRN Q4HRS PRN 10/23/16 22:00 Allopurinol (Zyloprim) 100 mg DAILY 10/24/16 11:00 10/29/16 09:37 100 MG Amino Acids/ Glycerin/ Electrolytes 1,000 ml @ 40 mls/hr Q24H 10/24/16 17:15 10/26/16 10:57 DC 10/26/16 04:09 40 MLS/HR Ampicillin Sodium/ Sulbactam Sodium 1.5 gm/Sodium Chloride 50 ml @ 100 mls/hr Q6HRS 10/26/16 18:00 10/29/16 09:35 100 MLS/HR Atorvastatin Calcium (Lipitor) 10 mg QHS 10/26/16 21:00 10/28/16 20:46 10 MG Calcium Acetate (Phoslo) 1,334 mg [id number] 10/24/16 12:00 10/28/16 18:20 1,334 MG Calcium Chloride 2000 mg/Sodium Chloride 120 ml @ 240 mls/hr 1X ONCE 10/28/16 11:45 10/28/16 12:14 DC 10/28/16 12:45 240 MLS/HR Calcium Gluconate (Calcium Gluconate) 1,000 mg Q2H 10/25/16 07:30 10/25/16 11:31 DC 10/25/16 17:11 1,000 MG Calcium/Vitamin D (Oscal D 500mg/ 200uts) 1 tab TID 10/24/16 14:00 10/29/16 09:32 1 TAB Darbepoetin Aaron (Aranesp) 60 mcg [id number] 10/28/16 21:00 10/28/16 20:46 60 MCG Dextrose 1,000 ml @ 80 mls/hr [id number] 10/26/16 11:00 10/28/16 13:57 DC 10/28/16 05:19 80 MLS/HR Dextrose (Dextrose 50%-Water Syringe) 25 gm 1X ONCE 10/25/16 22:15 10/25/16 22:16 DC 10/25/16 22:00 25 GM Digoxin (Lanoxin) 250 mcg 1X ONCE 10/23/16 20:00 10/23/16 20:01 DC 10/23/16 22:36 250 MCG Diltiazem HCl (Cardizem) 5 mg 1X ONCE 10/23/16 18:45 10/23/16 18:49 DC 10/23/16 19:12 5 MG Diltiazem HCl 125 mg/Dextrose 125 ml @ 0 mls/hr 1X ONCE 10/23/16 18:45 10/23/16 19:59 DC Diphenhydramine HCl (Benadryl) 25 mg 1X PRN PRN 10/27/16 10:15 10/27/16 19:00 DC Famotidine (Pepcid) 20 mg DAILY 10/24/16 11:00 10/29/16 09:37 20 MG Fentanyl (Duragesic 50mcg/ Hr Patch) 1 patch Q72H 10/24/16 11:00 10/27/16 11:49 1 PATCH Ferrous Sulfate (Feosol) 325 mg DAILY 10/24/16 11:00 10/29/16 09:37 325 MG Folic Acid (Folic Acid) 1 mg DAILY 10/24/16 11:00 10/29/16 09:37 1 MG Glucagon (Glucagen) 1 mg 1X PRN PRN 10/27/16 14:47 Glucose (Insta-Glucose) 15 gm PRN Q15MIN PRN 10/24/16 18:00 10/24/16 17:50 15 GM Heparin Sodium (Porcine) 5,000 unit Q8HRS 10/24/16 22:00 10/25/16 14:04 DC 10/25/16 06:09 5,000 UNIT Hydralazine HCl (Apresoline) 10 mg PRN Q4HRS PRN 10/23/16 22:00 Info (PHARMACY MONITORING -- do not chart) 1 each PRN DAILY PRN 10/27/16 10:15 Cancel Insulin Aspart (Novolog) 3 units TIDAC 10/24/16 11:35 10/26/16 07:44 DC Lactobacillus Acidophilus (Bacid, Lou-Bid) 2 tab DAILY 10/24/16 11:00 10/29/16 09:31 2 TAB Levothyroxine Sodium (Synthroid) 75 mcg DAILYAC 10/25/16 07:30 10/29/16 09:36 75 MCG Lidocaine/ Epinephrine (Xylocaine 1%-Epi 1:100,000) 7 ml 1X ONCE 10/27/16 16:00 10/27/16 16:01 DC Lidocaine/Sodium Bicarbonate (Buffered Lidocaine 1%) 4 ml 1X ONCE 10/27/16 15:30 10/27/16 15:59 DC Magnesium Sulfate/ Dextrose 50 ml @ 25 mls/hr PRN DAILY PRN 10/25/16 07:30 10/28/16 09:11 25 MLS/HR Metoprolol Tartrate (Lopressor) 12.5 mg BID 10/24/16 09:30 10/26/16 12:27 DC 10/25/16 21:06 12.5 MG Midodrine (Proamatine) 5 mg [id number] 10/24/16 14:00 10/29/16 09:35 5 MG Non-Formulary Medication 500 mg QID 10/24/16 13:00 10/24/16 13:00 DC Ondansetron HCl (Zofran) 4 mg PRN Q8HRS PRN 10/23/16 22:00 Oxycodone HCl (Roxicodone) 5 mg PRN Q4HRS PRN 10/24/16 11:15 10/25/16 21:07 5 MG Piperacillin Sod/ Tazobactam Sod (Zosyn Per Pharmacy) 1 each PRN DAILY PRN 10/24/16 10:45 10/26/16 13:22 DC Piperacillin Sod/ Tazobactam Sod 2.25 gm/Sodium Chloride 50 ml @ 100 mls/hr Q6HRS 10/24/16 12:00 10/26/16 13:23 DC 10/26/16 12:39 100 MLS/HR Pneumococcal Polyvalent Vaccine (Do NOT chart on this placeholder) 1 each PRN DAILY PRN 10/24/16 00:15 Cancel Potassium Chloride (Klor-Con) 10 meq [id number] 10/24/16 11:00 10/29/16 09:37 10 MEQ Sodium Polystyrene Sulfonate (Kayexalate) 15 gm 1X ONCE 10/25/16 07:00 10/25/16 07:01 DC Sodium Bicarbonate (Sodium Bicarbonate) 650 mg BID 10/24/16 11:00 10/29/16 09:31 650 MG Sodium Chloride 1,000 ml @ 400 mls/hr Q2H30M PRN 10/27/16 10:11 10/27/16 22:10 DC Sodium Chloride (Normal Saline Flush) 10 ml 1X PRN PRN 10/25/16 09:00 10/26/16 08:59 DC Tobramycin Sulfate 300 mg/ Sodium Chloride 107.5 ml @ 107.5 mls/ hr 1X ONCE 10/29/16 10:30 10/29/16 11:29 Vancomycin HCl 125 mg BID 10/26/16 21:00 10/29/16 09:31 125 MG Vancomycin HCl 1.5 gm/Sodium Chloride 500 ml @ 250 mls/hr 1X ONCE 10/24/16 11:15 10/24/16 11:15 DC Vitamin A/Vitamin D (Vitamin A & D Ointment) 1 vanna TID 10/28/16 21:00 10/29/16 09:38 1 VANNA Lab Laboratory Tests Test 10/28/16 13:50 10/28/16 16:13 10/28/16 18:12 10/28/16 22:06 Glucose (Fingerstick) 141 mg/dL (70-99) 161 mg/dL (70-99) 154 mg/dL (70-99) 185 mg/dL (70-99) Test 10/29/16 00:55 10/29/16 02:03 10/29/16 05:59 10/29/16 09:52 White Blood Count 7.3 x10^3/uL (4.0-11.0) Red Blood Count 3.71 x10^6/uL (4.30-5.70) Hemoglobin 10.5 g/dL (13.0-17.5) Hematocrit 33.1 % (39.0-53.0) Mean Corpuscular Volume 89 fL (79-100) Mean Corpuscular Hemoglobin 28 pg (25-35) Mean Corpuscular Hemoglobin Concent 32 g/dL (31-37) Red Cell Distribution Width 17.8 % (11.5-14.5) Platelet Count 20 x10^3/uL (140-400) Neutrophils (%) (Auto) 86 % (31-73) Lymphocytes (%) (Auto) 7 % (24-48) Monocytes (%) (Auto) 6 % (0-9) Eosinophils (%) (Auto) 1 % (0-3) Basophils (%) (Auto) 1 % (0-3) Neutrophils # (Auto) 6.3 x10^3uL (1.8-7.7) Lymphocytes # (Auto) 0.5 x10^3/uL (1.0-4.8) Monocytes # (Auto) 0.4 x10^3/uL (0.0-1.1) Eosinophils # (Auto) 0.1 x10^3/uL (0.0-0.7) Basophils # (Auto) 0.0 x10^3/uL (0.0-0.2) Sodium Level 134 mmol/L (136-145) Potassium Level 3.9 mmol/L (3.5-5.1) Chloride Level 99 mmol/L (98-107) Carbon Dioxide Level 28 mmol/L (21-32) Anion Gap 7 (6-14) Blood Urea Nitrogen 50 mg/dL (8-26) Creatinine 4.1 mg/dL (0.7-1.3) Estimated GFR (Cockcroft-Gault) 18.2 Glucose Level 203 mg/dL (70-99) Calcium Level 7.3 mg/dL (8.5-10.1) Phosphorus Level 3.3 mg/dL (2.6-4.7) Magnesium Level 1.9 mg/dL (1.8-2.4) Albumin 2.0 g/dL (3.4-5.0) Glucose (Fingerstick) 148 mg/dL (70-99) 167 mg/dL (70-99) 124 mg/dL (70-99) CELINA CLIFTON MD October 29, 2016 11:33
--- NOTE | 2016-10-29 12:08 | PDOC ---
PROGRESS NOTES Chief Complaint Chief Complaint cc: syncopal episode, SVT, ESRD, Acinetobacter bacteremia ESRD, on HD anemia of chronic disease chronic diastolic heart failure DM type II GERD hyperlipidemia hypertension, with HYPOTENSION around HD hypothyroidism hepatitis, end stage cirrhosis with chronic ascites gout cardiomyopathy prior C. diff. History of Present Illness History of Present Illness non conversant again Known to me NOt ready for hospice DRained 9 L yesterday ID still has on IV unasyn and a dose tobramycin IV today Waiting on sensitivities from lab For temp HD today, then if BC neg (permanent cath on wednesday then dc to [facility]) Dw renal PLAN: Albumin 50 gms x 1 now IV given large volume paracentesis FOr temp PD today (changed) HD per renal Vitals Vitals Vital Signs Date Time Temp Pulse Resp B/P (MAP) Pulse Ox O2 Delivery O2 Flow Rate FiO2 10/29/16 11:00 98.4 78 14 104/80 (88) 98 Room Air 98.4 10/29/16 08:00 2.0 Physical Exam General: Alert, No acute distress Heart: Normal S1, Other (tachycardia, on midorinine gtt. ) Lungs: Clear, Other (diminished inspiratory effort. negative chest retractions and/or accessory muscle use. ) Abdomen: Other Extremities: No clubbing, Other Skin: No rashes, Other (Left ankle ulcer. Right shoulder ulcer. dressing placed. ) Labs LABS Laboratory Tests Test 10/28/16 13:50 10/28/16 16:13 10/28/16 18:12 10/28/16 22:06 Glucose (Fingerstick) 141 mg/dL (70-99) 161 mg/dL (70-99) 154 mg/dL (70-99) 185 mg/dL (70-99) Test 10/29/16 00:55 10/29/16 02:03 10/29/16 05:59 10/29/16 09:52 White Blood Count 7.3 x10^3/uL (4.0-11.0) Red Blood Count 3.71 x10^6/uL (4.30-5.70) Hemoglobin 10.5 g/dL (13.0-17.5) Hematocrit 33.1 % (39.0-53.0) Mean Corpuscular Volume 89 fL (79-100) Mean Corpuscular Hemoglobin 28 pg (25-35) Mean Corpuscular Hemoglobin Concent 32 g/dL (31-37) Red Cell Distribution Width 17.8 % (11.5-14.5) Platelet Count 20 x10^3/uL (140-400) Neutrophils (%) (Auto) 86 % (31-73) Lymphocytes (%) (Auto) 7 % (24-48) Monocytes (%) (Auto) 6 % (0-9) Eosinophils (%) (Auto) 1 % (0-3) Basophils (%) (Auto) 1 % (0-3) Neutrophils # (Auto) 6.3 x10^3uL (1.8-7.7) Lymphocytes # (Auto) 0.5 x10^3/uL (1.0-4.8) Monocytes # (Auto) 0.4 x10^3/uL (0.0-1.1) Eosinophils # (Auto) 0.1 x10^3/uL (0.0-0.7) Basophils # (Auto) 0.0 x10^3/uL (0.0-0.2) Sodium Level 134 mmol/L (136-145) Potassium Level 3.9 mmol/L (3.5-5.1) Chloride Level 99 mmol/L (98-107) Carbon Dioxide Level 28 mmol/L (21-32) Anion Gap 7 (6-14) Blood Urea Nitrogen 50 mg/dL (8-26) Creatinine 4.1 mg/dL (0.7-1.3) Estimated GFR (Cockcroft-Gault) 18.2 Glucose Level 203 mg/dL (70-99) Calcium Level 7.3 mg/dL (8.5-10.1) Phosphorus Level 3.3 mg/dL (2.6-4.7) Magnesium Level 1.9 mg/dL (1.8-2.4) Albumin 2.0 g/dL (3.4-5.0) Glucose (Fingerstick) 148 mg/dL (70-99) 167 mg/dL (70-99) 124 mg/dL (70-99) Review of Systems Review of Systems non conversant - limited Assessment and Plan Assessmemt and Plan Problems Medical Problems: (1) Ascites Status: Acute (2) ESRD (end stage renal disease) on dialysis Status: Acute (3) SVT (supraventricular tachycardia) Status: Acute (4) Syncope Status: Acute Problems: Comment Review of Relevant I have reviewed the following items дмитрий (where applicable) has been applied. Labs Laboratory Tests Test 10/27/16 13:35 10/27/16 15:30 10/27/16 17:08 10/27/16 20:10 Haptoglobin 63 mg/dL (34-200) Prothrombin Time 24.1 SEC (11.7-14.0) Prothromb Time International Ratio 2.3 (0.8-1.1) Fibrinogen 163 mg/dL (200-440) Ferritin 388 ng/mL (26-388) Body Fluid Source Ascites Body Fluid Color Yellow Body Fluid Clarity Clear Body Fluid Nucleated Cells 10 /cmm Body Fluid Mononuclear WBCs (%) 77 % Body Fluid Polymorphonuclear Cells 21 % Body Fluid Total RBCs Counted 14 /cmm Body Fluid Other Cells (%) 2 % Glucose (Fingerstick) 75 mg/dL (70-99) 82 mg/dL (70-99) Test 10/27/16 22:24 10/28/16 00:01 10/28/16 05:30 10/28/16 06:04 Glucose (Fingerstick) 139 mg/dL (70-99) 133 mg/dL (70-99) 106 mg/dL (70-99) White Blood Count 7.0 x10^3/uL (4.0-11.0) Red Blood Count 3.20 x10^6/uL (4.30-5.70) Hemoglobin 9.3 g/dL (13.0-17.5) Hematocrit 28.0 % (39.0-53.0) Mean Corpuscular Volume 88 fL (79-100) Mean Corpuscular Hemoglobin 29 pg (25-35) Mean Corpuscular Hemoglobin Concent 33 g/dL (31-37) Red Cell Distribution Width 17.7 % (11.5-14.5) Platelet Count 24 x10^3/uL (140-400) Neutrophils (%) (Auto) 87 % (31-73) Lymphocytes (%) (Auto) 7 % (24-48) Monocytes (%) (Auto) 5 % (0-9) Eosinophils (%) (Auto) 1 % (0-3) Basophils (%) (Auto) 0 % (0-3) Neutrophils # (Auto) 6.1 x10^3uL (1.8-7.7) Lymphocytes # (Auto) 0.5 x10^3/uL (1.0-4.8) Monocytes # (Auto) 0.4 x10^3/uL (0.0-1.1) Eosinophils # (Auto) 0.1 x10^3/uL (0.0-0.7) Basophils # (Auto) 0.0 x10^3/uL (0.0-0.2) Sodium Level 134 mmol/L (136-145) Potassium Level 4.2 mmol/L (3.5-5.1) Chloride Level 99 mmol/L (98-107) Carbon Dioxide Level 29 mmol/L (21-32) Anion Gap 6 (6-14) Blood Urea Nitrogen 42 mg/dL (8-26) Creatinine 3.6 mg/dL (0.7-1.3) Estimated GFR (Cockcroft-Gault) 21.2 Glucose Level 113 mg/dL (70-99) Calcium Level 6.9 mg/dL (8.5-10.1) Phosphorus Level 3.8 mg/dL (2.6-4.7) Magnesium Level 1.5 mg/dL (1.8-2.4) Albumin 2.1 g/dL (3.4-5.0) Test 10/28/16 07:55 10/28/16 09:55 10/28/16 13:50 10/28/16 16:13 Glucose (Fingerstick) 111 mg/dL (70-99) 153 mg/dL (70-99) 141 mg/dL (70-99) 161 mg/dL (70-99) Test 10/28/16 18:12 10/28/16 22:06 10/29/16 00:55 10/29/16 02:03 Glucose (Fingerstick) 154 mg/dL (70-99) 185 mg/dL (70-99) 148 mg/dL (70-99) White Blood Count 7.3 x10^3/uL (4.0-11.0) Red Blood Count 3.71 x10^6/uL (4.30-5.70) Hemoglobin 10.5 g/dL (13.0-17.5) Hematocrit 33.1 % (39.0-53.0) Mean Corpuscular Volume 89 fL (79-100) Mean Corpuscular Hemoglobin 28 pg (25-35) Mean Corpuscular Hemoglobin Concent 32 g/dL (31-37) Red Cell Distribution Width 17.8 % (11.5-14.5) Platelet Count 20 x10^3/uL (140-400) Neutrophils (%) (Auto) 86 % (31-73) Lymphocytes (%) (Auto) 7 % (24-48) Monocytes (%) (Auto) 6 % (0-9) Eosinophils (%) (Auto) 1 % (0-3) Basophils (%) (Auto) 1 % (0-3) Neutrophils # (Auto) 6.3 x10^3uL (1.8-7.7) Lymphocytes # (Auto) 0.5 x10^3/uL (1.0-4.8) Monocytes # (Auto) 0.4 x10^3/uL (0.0-1.1) Eosinophils # (Auto) 0.1 x10^3/uL (0.0-0.7) Basophils # (Auto) 0.0 x10^3/uL (0.0-0.2) Sodium Level 134 mmol/L (136-145) Potassium Level 3.9 mmol/L (3.5-5.1) Chloride Level 99 mmol/L (98-107) Carbon Dioxide Level 28 mmol/L (21-32) Anion Gap 7 (6-14) Blood Urea Nitrogen 50 mg/dL (8-26) Creatinine 4.1 mg/dL (0.7-1.3) Estimated GFR (Cockcroft-Gault) 18.2 Glucose Level 203 mg/dL (70-99) Calcium Level 7.3 mg/dL (8.5-10.1) Phosphorus Level 3.3 mg/dL (2.6-4.7) Magnesium Level 1.9 mg/dL (1.8-2.4) Albumin 2.0 g/dL (3.4-5.0) Test 10/29/16 05:59 10/29/16 09:52 Glucose (Fingerstick) 167 mg/dL (70-99) 124 mg/dL (70-99) Laboratory Tests Test 10/28/16 13:50 10/28/16 16:13 10/28/16 18:12 10/28/16 22:06 Glucose (Fingerstick) 141 mg/dL (70-99) 161 mg/dL (70-99) 154 mg/dL (70-99) 185 mg/dL (70-99) Test 10/29/16 00:55 10/29/16 02:03 10/29/16 05:59 10/29/16 09:52 White Blood Count 7.3 x10^3/uL (4.0-11.0) Red Blood Count 3.71 x10^6/uL (4.30-5.70) Hemoglobin 10.5 g/dL (13.0-17.5) Hematocrit 33.1 % (39.0-53.0) Mean Corpuscular Volume 89 fL (79-100) Mean Corpuscular Hemoglobin 28 pg (25-35) Mean Corpuscular Hemoglobin Concent 32 g/dL (31-37) Red Cell Distribution Width 17.8 % (11.5-14.5) Platelet Count 20 x10^3/uL (140-400) Neutrophils (%) (Auto) 86 % (31-73) Lymphocytes (%) (Auto) 7 % (24-48) Monocytes (%) (Auto) 6 % (0-9) Eosinophils (%) (Auto) 1 % (0-3) Basophils (%) (Auto) 1 % (0-3) Neutrophils # (Auto) 6.3 x10^3uL (1.8-7.7) Lymphocytes # (Auto) 0.5 x10^3/uL (1.0-4.8) Monocytes # (Auto) 0.4 x10^3/uL (0.0-1.1) Eosinophils # (Auto) 0.1 x10^3/uL (0.0-0.7) Basophils # (Auto) 0.0 x10^3/uL (0.0-0.2) Sodium Level 134 mmol/L (136-145) Potassium Level 3.9 mmol/L (3.5-5.1) Chloride Level 99 mmol/L (98-107) Carbon Dioxide Level 28 mmol/L (21-32) Anion Gap 7 (6-14) Blood Urea Nitrogen 50 mg/dL (8-26) Creatinine 4.1 mg/dL (0.7-1.3) Estimated GFR (Cockcroft-Gault) 18.2 Glucose Level 203 mg/dL (70-99) Calcium Level 7.3 mg/dL (8.5-10.1) Phosphorus Level 3.3 mg/dL (2.6-4.7) Magnesium Level 1.9 mg/dL (1.8-2.4) Albumin 2.0 g/dL (3.4-5.0) Glucose (Fingerstick) 148 mg/dL (70-99) 167 mg/dL (70-99) 124 mg/dL (70-99) Microbiology 10/25/16 Blood Culture - Preliminary, Resulted NO GROWTH AFTER 4 DAYS 10/27/16 Gram Stain - Final, Complete 10/27/16 Gram Stain - Final, Complete Medications Current Medications Sodium Chloride 500 ml @ 250 mls/hr 1X ONCE IV Last administered on 16:24; Start 10/23/16 at 16:15; Stop 10/23/16 at 18:14; Status DC Sodium Chloride 500 ml @ 250 mls/hr 1X ONCE IV Last administered on 17:15; Start 10/23/16 at 17:15; Stop 10/23/16 at 19:14; Status DC Diltiazem HCl (Cardizem) 5 mg 1X ONCE IVP Last administered on 10/23/16 19:12 ; Start 10/23/16 at 18:45; Stop 10/23/16 at 18:49; Status DC Diltiazem HCl 125 mg/Dextrose 125 ml @ 0 mls/hr 1X ONCE IV ; Start 10/23/16 at 18:45; Stop 10/23/16 at 19:59; Status DC Digoxin (Lanoxin) 250 mcg 1X ONCE IV Last administered on 10/23/16 22:36; Start 10/23/16 at 20:00; Stop 10/23/16 at 20:01; Status DC Ondansetron HCl (Zofran) 4 mg PRN Q8HRS PRN IV NAUSEA/VOMITING; Start 10/23/16 at 20:15; Stop 10/23/16 at 22:04; Status DC Acetaminophen (Tylenol) 650 mg PRN Q4HRS PRN PO FEVER; Start 10/23/16 at 20:15 ; Stop 10/23/16 at 22:04; Status DC Acetaminophen (Tylenol) 325 mg PRN Q6HRS PRN PO MILD PAIN / TEMP; Start at 22:00; Stop 10/25/16 at 11:09; Status DC Acetaminophen/ Hydrocodone Bitart (Lortab 5/325) 1 tab PRN Q6HRS PRN PO MODERATE TO SEVERE PAIN; Start 10/23/16 at 22:00 Hydralazine HCl (Apresoline) 10 mg PRN Q4HRS PRN IVP ELEVATED BP, SEE COMMENTS ; Start 10/23/16 at 22:00 Ondansetron HCl (Zofran) 4 mg PRN Q8HRS PRN IV NAUSEA/VOMITING; Start 10/23/16 at 22:00 Albuterol Sulfate (Ventolin Neb Soln) 2.5 mg PRN Q4HRS PRN NEB SHORTNESS OF BREATH; Start 10/23/16 at 22:00 Sodium Chloride 500 ml @ 500 mls/hr 1X ONCE IV Last administered on 22:34; Start 10/23/16 at 22:30; Stop 10/23/16 at 23:29; Status DC Pneumococcal Polyvalent Vaccine (Do NOT chart on this placeholder) 1 each PRN DAILY PRN [facility] UNABLE TO RESPOND; Start 10/24/16 at 00:15; Status Cancel Dextrose (Dextrose 50%-Water Syringe) 12.5 gm PRN Q15MIN PRN IV SEE COMMENTS Last administered on 10/25/16 21:40; Start 10/24/16 at 01:15 Dextrose (Dextrose 50%-Water Syringe) 25 gm STK-MED ONCE IV ; Start 10/24/16 at 01:05; Stop 10/24/16 at 01:06; Status DC Metoprolol Tartrate (Lopressor) 12.5 mg BID PO Last administered on 10/25/16 21:06; Start 10/24/16 at 09:30; Stop 10/26/16 at 12:27; Status DC Acetaminophen (Tylenol) 650 mg PRN Q4HRS PRN PO PAIN; Start 10/24/16 at 10:45 Allopurinol (Zyloprim) 100 mg DAILY PO Last administered on 10/29/16 09:37; Start 10/24/16 at 11:00 Atorvastatin Calcium (Lipitor) 10 mg DAILY PO Last administered on 10/24/16 13 :52; Start 10/24/16 at 11:00; Stop 10/25/16 at 14:11; Status DC Calcium Acetate (Phoslo) 1,334 mg TIDWMEALS PO Last administered on 10/28/16 18 :20; Start 10/24/16 at 12:00 Diphenhydramine HCl (Benadryl) 25 mg PRN Q4HRS PRN PO ITCHING; Start 10/24/16 at 10:45 Famotidine (Pepcid) 20 mg DAILY PO Last administered on 10/29/16 09:37; Start 10/24/16 at 11:00 Fentanyl (Duragesic 50mcg/ Hr Patch) 1 patch Q72H TD Last administered on 11:49; Start 10/24/16 at 11:00 Ferrous Sulfate (Feosol) 325 mg DAILY PO Last administered on 10/29/16 09:37; Start 10/24/16 at 11:00 Folic Acid (Folic Acid) 1 mg DAILY PO Last administered on 10/29/16 09:37; Start 10/24/16 at 11:00 Levothyroxine Sodium (Synthroid) 75 mcg DAILYAC PO Last administered on 09:36; Start 10/25/16 at 07:30 Midodrine (Proamatine) 2.5 mg PRN TID PRN PO BLOOD PRESSURE; Start 10/24/16 at 10:45 Midodrine (Proamatine) 5 mg [id number] PO Last administered on 10/29/16 09:35; Start 10/24/16 at 14:00 Sodium Bicarbonate (Sodium Bicarbonate) 650 mg BID PO Last administered on 09:31; Start 10/24/16 at 11:00; Stop 10/29/16 at 11:34; Status DC Calcium/Vitamin D (Oscal D 500mg/ 200uts) 1 tab TID PO Last administered on 10/29 09:32; Start 10/24/16 at 14:00 Non-Formulary Medication 500 mg QID PO ; Start 10/24/16 at 13:00; Stop 10/24/16 at 13:00; Status DC Glucagon (Glucagen) 1 mg 1X PRN IM HYPOGLYCEMIA; Start 10/24/16 at 11:00; Stop 10/27/16 at 14:47; Status DC Insulin Aspart (Novolog) 3 units TIDAC SQ ; Start 10/24/16 at 11:30; Stop at 11:36; Status DC Lactobacillus Acidophilus (Bacid, Lou-Bid) 2 tab DAILY PO Last administered on 10/29/16 09:31; Start 10/24/16 at 11:00 Oxycodone HCl (Roxicodone) 5 mg PRN Q4HRS PRN PO PAIN Last administered on 10/25 21:07; Start 10/24/16 at 11:15 Potassium Chloride (Klor-Con) 10 meq [id number] PO Last administered on 09:37; Start 10/24/16 at 11:00 Vancomycin HCl 125 mg Q6HRS PO Last administered on 10/26/16 06:14; Start 10/24 at 12:00; Stop 10/26/16 at 11:21; Status DC Piperacillin Sod/ Tazobactam Sod (Zosyn Per Pharmacy) 1 each PRN DAILY PRN [facility] SEE COMMENTS; Start 10/24/16 at 10:45; Stop 10/26/16 at 13:22; Status DC Vancomycin HCl 1.5 gm/Sodium Chloride 500 ml @ 250 mls/hr 1X ONCE IV ; Start 10/24/16 at 11:15; Stop 10/24/16 at 11:15; Status DC Piperacillin Sod/ Tazobactam Sod 2.25 gm/Sodium Chloride 50 ml @ 100 mls/hr Q6HRS IV Last administered on 10/26/16 12:39; Start 10/24/16 at 12:00; Stop 10/26/16 at 13:23; Status DC Insulin Aspart (Novolog) 3 units TIDAC SQ ; Start 10/24/16 at 11:35; Stop at 07:44; Status DC Heparin Sodium (Porcine) 5,000 unit Q8HRS SQ Last administered on 10/25/16 06: 09; Start 10/24/16 at 22:00; Stop 10/25/16 at 14:04; Status DC Amino Acids/ Glycerin/ Electrolytes 1,000 ml @ 40 mls/hr Q24H IV Last administered on 10/26/16 04:09; Start 10/24/16 at 17:15; Stop 10/26/16 at 10:57; Status DC Dextrose (Dextrose 50%-Water Syringe) 25 gm PRN Q1HR PRN IV SEE COMMENTS Last administered on 10/26/16 08:54; Start 10/24/16 at 17:15 Glucose (Insta-Glucose) 15 gm STK-MED ONCE .ROUTE ; Start 10/24/16 at 17:44; Stop 10/24/16 at 17:45; Status DC Glucose (Insta-Glucose) 15 gm PRN Q15MIN PRN PO LOW BLOOD SUGAR Last administered on 10/24/16 17:50; Start 10/24/16 at 18:00 Sodium Polystyrene Sulfonate (Kayexalate) 15 gm 1X ONCE PO ; Start 10/25/16 at 07:00; Stop 10/25/16 at 07:01; Status DC Magnesium Sulfate/ Dextrose 50 ml @ 25 mls/hr PRN DAILY PRN IV for Mag < 1.7 on am labs Last administered on 10/28/16 09:11; Start 10/25/16 at 07:30 Calcium Gluconate (Calcium Gluconate) 1,000 mg Q2H IVP Last administered on 17:11; Start 10/25/16 at 07:30; Stop 10/25/16 at 11:31; Status DC Albumin Human 100 ml @ 100 mls/hr 1X ONCE IV Last administered on 10/25/16 08:32; Start 10/25/16 at 08:30; Stop 10/25/16 at 09:29; Status DC Albumin Human 50 ml @ 50 mls/hr 1X ONCE IV Last administered on 10/25/16 08: 30; Start 10/25/16 at 08:30; Stop 10/25/16 at 09:29; Status DC Info (PHARMACY MONITORING -- do not chart) 1 each PRN DAILY PRN [facility] SEE COMMENTS ; Start 10/25/16 at 08:45 Info (PHARMACY MONITORING -- do not chart) 1 each PRN DAILY PRN MC SEE COMMENTS ; Start 10/25/16 at 08:45; Status Cancel Sodium Chloride 1,000 ml @ 1,000 mls/hr Q1H PRN IV hypotension; Start 10/25/16 at 08:54; Stop 10/25/16 at 14:53; Status DC Albumin Human 200 ml @ 200 mls/hr 1X PRN PRN IV Hypotension Last administered on 10/25/16 09:08; Start 10/25/16 at 09:00; Stop 10/25/16 at 14:59; Status DC Sodium Chloride (Normal Saline Flush) 10 ml 1X PRN PRN IV AP catheter pack; Start 10/25/16 at 09:00; Stop 10/26/16 at 08:59; Status DC Sodium Chloride (Normal Saline Flush) 10 ml 1X PRN PRN IV [employer] catheter pack; Start 10/25/16 at 09:00; Stop 10/26/16 at 08:59; Status DC Info (PHARMACY MONITORING -- do not chart) 1 each PRN DAILY PRN MC SEE COMMENTS ; Start 10/25/16 at 09:00; Status Cancel Info (PHARMACY MONITORING -- do not chart) 1 each PRN DAILY PRN MC SEE COMMENTS ; Start 10/25/16 at 09:00; Stop 10/26/16 at 11:18; Status DC Atorvastatin Calcium (Lipitor) 10 mg QHS PO Last administered on 10/28/16 20:46 ; Start 10/26/16 at 21:00 Dextrose (Dextrose 50%-Water Syringe) 25 gm 1X ONCE IV Last administered on 22:00; Start 10/25/16 at 22:15; Stop 10/25/16 at 22:16; Status DC Dextrose 1,000 ml @ 80 mls/hr [id number] IV Last administered on 10/28/16 05:19; Start 10/26/16 at 11:00; Stop 10/28/16 at 13:57; Status DC Vancomycin HCl 125 mg BID PO Last administered on 10/29/16 09:31; Start at 21:00 Ampicillin Sodium/ Sulbactam Sodium 1.5 gm/Sodium Chloride 50 ml @ 100 mls/hr Q6HRS IV Last administered on 10/29/16 09:35; Start 10/26/16 at 18:00 Sodium Chloride 1,000 ml @ 1,000 mls/hr Q1H PRN IV hypotension; Start 10/27/16 at 10:11; Stop 10/27/16 at 16:10; Status DC Albumin Human 200 ml @ 200 mls/hr 1X PRN PRN IV Hypotension Last administered on 10/27/16 11:18; Start 10/27/16 at 10:15; Stop 10/27/16 at 16:14; Status DC Diphenhydramine HCl (Benadryl) 25 mg 1X PRN PRN IV ITCHING; Start 10/27/16 at 10 :15; Stop 10/27/16 at 19:00; Status DC Diphenhydramine HCl (Benadryl) 25 mg 1X PRN PRN IV ITCHING; Start 10/27/16 at 10 :15; Stop 10/27/16 at 19:00; Status DC Sodium Chloride 1,000 ml @ 400 mls/hr Q2H30M PRN IV PATENCY; Start 10/27/16 at 10:11; Stop 10/27/16 at 22:10; Status DC Info (PHARMACY MONITORING -- do not chart) 1 each PRN DAILY PRN MC SEE COMMENTS ; Start 10/27/16 at 10:15; Status Cancel Lidocaine/ Epinephrine (Xylocaine 1%-Epi 1:100,000) 20 ml STK-MED ONCE .ROUTE ; Start 10/27/16 at 14:41; Stop 10/27/16 at 14:42; Status DC Glucagon (Glucagen) 1 mg 1X PRN PRN IM HYPOGLYCEMIA; Start 10/27/16 at 14:47 Lidocaine/Sodium Bicarbonate (Buffered Lidocaine 1%) 4 ml 1X ONCE IJ ; Start at 15:30; Stop 10/27/16 at 15:59; Status DC Albumin Human 100 ml @ 100 mls/hr 1X ONCE IV Last administered on 10/27/16 15 :57; Start 10/27/16 at 16:00; Stop 10/27/16 at 16:59; Status DC Lidocaine/ Epinephrine (Xylocaine 1%-Epi 1:100,000) 7 ml 1X ONCE INJ ; Start at 16:00; Stop 10/27/16 at 16:01; Status DC Calcium Chloride 2000 mg/Sodium Chloride 120 ml @ 240 mls/hr 1X ONCE IV Last administered on 10/28/16 12:45; Start 10/28/16 at 11:45; Stop 10/28/16 at 12:14; Status DC Darbepoetin Aaron (Aranesp) 60 mcg [id number] SQ Last administered on 10/28/16 20: 46; Start 10/28/16 at 21:00 Vitamin A/Vitamin D (Vitamin A & D Ointment) 1 vanna TID TP Last administered on 10/29/16 09:38; Start 10/28/16 at 21:00 Tobramycin Sulfate 300 mg/ Sodium Chloride 107.5 ml @ 107.5 mls/ hr 1X ONCE IV ; Start 10/29/16 at 10:30; Stop 10/29/16 at 11:29; Status DC Active Scripts Active Midodrine Hcl 2.5 Mg Tablet 2.5 Mg PO PRN TID PRN Reported Gluco Burst (Dextrose) 37.5 Gm Gel..gram. 37.5 Gm PO PRN Glucagon Emergency Kit (Glucagon,Human Recombinant) 1 Mg Kit 1 Mg IM PRN Ferrous Sulfate 325 Mg Tablet 1 Tab PO DAILY DURAGESIC 50mcg/hr (Fentanyl) 1 Each Patch.td72 1 Patch TD Q72H Benadryl (Diphenhydramine Hcl) 25 Mg Capsule 25 Mg PO PRN Q4HRS PRN Midodrine Hcl 5 Mg Tablet 5 Mg PO BID Sodium Bicarbonate 650 Mg Tablet 650 Mg PO BID Potassium Chloride 10 Meq Tablet.er 10 Meq PO DAILY Keflex (Cephalexin) 500 Mg Capsule 500 Mg PO QID Humalog Kwikpen (Insulin Lispro) 200 Unit/1 Ml Insuln.pen 3 Unit SQ TIDAC Famotidine 20 Mg Tablet 20 Mg PO DAILY Oxycodone Hcl 15 Mg Tablet 1 Tab PO PRN Q4HRS PRN Phoslo (Calcium Acetate) 667 Mg Capsule 2 Cap PO TIDWMEALS Allopurinol 100 Mg Tablet 1 Tab PO DAILY Oyster Shell Calcium-Vit D Tab (Calcium Carbonate/Vitamin D2) 1 Each Tablet 1 Each PO TID Acidophilus Lactobacillus (Lactobacillus Acidophilus) 1 Each Capsule 1 Each PO DAILY Acetaminophen 325 Mg Tablet 650 Mg PO PRN Q4HRS PRN Atorvastatin Calcium 10 Mg Tablet 1 Tab PO DAILY Folic Acid 1 Mg Tablet 1 Mg PO DAILY Levothyroxine Sodium 25 Mcg Tablet 75 Mcg PO DAILYAC Vitals/I & O Vital Sign - Last 24 Hours 10/28/16 10/28/16 10/28/16 10/28/16 12:06 12:07 13:00 14:00 Pulse 73 78 82 Resp 12 14 16 B/P (MAP) 89/54 (66) 93/65 (74) 101/62 (75) Pulse Ox 98 97 98 O2 Delivery Nasal Cannula Nasal Cannula Nasal Cannula Nasal Cannula O2 Flow Rate 2.0 2.0 2.0 2.0 10/28/16 10/28/16 10/28/16 10/28/16 14:09 15:00 16:00 16:00 Temp 97.3 97.3 Pulse 80 81 79 Resp 16 16 B/P (MAP) 114/81 113/72 (86) 111/69 (83) Pulse Ox 97 96 O2 Delivery Nasal Cannula Nasal Cannula Nasal Cannula O2 Flow Rate 2.0 2.0 2.0 10/28/16 10/28/16 10/28/16 10/28/16 18:23 19:00 20:00 23:00 Temp 96.6 96.6 96.6 96.6 Pulse 89 84 Resp 18 18 B/P (MAP) 123/100 (108) 97/75 (82) Pulse Ox 96 95 O2 Delivery Nasal Cannula Nasal Cannula Nasal Cannula Nasal Cannula O2 Flow Rate 2.0 2.0 2.0 2.0 10/29/16 10/29/16 10/29/16 10/29/16 02:46 07:00 08:00 09:35 Temp 96.6 97.9 96.6 97.9 Pulse 129 72 116 Resp 18 B/P (MAP) 103/73 (83) 119/86 (97) 119/86 Pulse Ox 94 97 O2 Delivery Nasal Cannula Nasal Cannula Nasal Cannula O2 Flow Rate 2.0 2.0 2.0 10/29/16 11:00 Temp 98.4 98.4 Pulse 78 Resp 14 B/P (MAP) 104/80 (88) Pulse Ox 98 O2 Delivery Room Air Intake and Output 10/28/16 10/28/16 10/29/16 15:00 23:00 07:00 Intake Total 1446 ml 900 ml Balance 1446 ml 900 ml Nutrition Consultation Dietary Evaluation: Recommendations by RD: Increase Calorie Intake, Protein supplementation Comments: Rec. continue novasource renal TID - 475kcal and 21.6g protein per serving Rec. nephrovite and 500mg vit c q day to aid wound healing Expected Outcomes/Goals: to meet >75% est nutr needs Malnutrition Findings: Food and Nutrition Intake (Mod: <75% est energy req 7days Body Fat Depletion (Non Severe: Mod to Severe Weight Status: Appropriate KARAN FERGUSON MD October 29, 2016 12:08
[2016-10-29 15:00] VITALS: BP 120/86
[2016-10-29] MEDS: ALBUMIN HUMAN 25% 100 ML IV SCH ×2 (15:00→16:00)
[2016-10-29 19:00] VITALS: BP 106/84
[2016-10-29] MEDS: ATORVASTATIN CALCIUM 10 MG TABLET. PO SCH (20:23)
[2016-10-29] MEDS: oxyCODONE IR 5 MG TABLET PO PRN (20:23)
[2016-10-29 23:00] VITALS: BP 132/95
[2016-10-30 03:00] VITALS: BP 151/115
[2016-10-30] MEDS: AMPICILLIN/SULBACTAM 1.5 GM in IV NORMAL SALINE 50ML 50 ML IV SCH ×5 (05:44→18:00)
[2016-10-30 06:36] LABS: ALBUMIN 2.4 g/dL (3.4-5.0); CALCIUM 7.9 mg/dL (8.5-10.1); CREATININE 4.7 mg/dL (0.7-1.3); GFR 15.6; PHOSPHORUS 3.5 mg/dL (2.6-4.7); POTASSIUM 4.6 mmol/L (3.5-5.1)
[2016-10-30 07:25] VITALS: BP 124/95
[2016-10-30] MEDS: LEVOTHYROXINE 25 MCG TABLET. PO SCH (07:30)
[2016-10-30] MEDS: CALCIUM ACETATE 667 MG CAPSULE PO SCH ×3 (08:00→17:00)
[2016-10-30] MEDS: POTASSIUM CHLORIDE 10 MEQ TABLET.ER. PO SCH (08:00)
[2016-10-30] MEDS: ALLOPURINOL 100 MG TABLET. PO SCH (09:00)
[2016-10-30] MEDS: FOLIC ACID 1 MG TABLET. PO SCH (09:00)
[2016-10-30] MEDS: MIDODRINE 5 MG TABLET PO SCH ×2 (09:00→14:00)
[2016-10-30] MEDS: FAMOTIDINE 20 MG TABLET. PO SCH (09:00)
[2016-10-30] MEDS: LACTOBACILLUS ACIDOPH & BULGAR 1 TABLET. PO SCH (09:00)
[2016-10-30] MEDS: CALCIUM CARB/VIT D3 500/200 TABLET. PO SCH ×3 (09:00→20:17)
[2016-10-30] MEDS: VITS A & D/LANOLIN TOPICAL OINTMENT 56GM TUBE. TP SCH ×3 (09:00→20:15)
[2016-10-30] MEDS: VANCOMYCIN 125 MG/2.5 ML ORAL SOLUTION. PO SCH ×2 (09:00→20:18)
[2016-10-30] MEDS: FERROUS SULFATE 325 MG TABLET. PO SCH (09:00)
[2016-10-30 10:15] VITALS: BP 141/97
--- NOTE | 2016-10-30 10:18 | PDOC ---
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: Alert, oriented x 3, no focal neurologic deficit SKIN: No rash IV: ok Labs Lab Laboratory Tests Test 10/29/16 14:25 10/29/16 18:03 10/29/16 22:24 10/30/16 06:00 Glucose (Fingerstick) 123 mg/dL (70-99) 81 mg/dL (70-99) 120 mg/dL (70-99) Sodium Level 135 mmol/L (136-145) Potassium Level 4.6 mmol/L (3.5-5.1) Chloride Level 100 mmol/L (98-107) Carbon Dioxide Level 26 mmol/L (21-32) Anion Gap 9 (6-14) Blood Urea Nitrogen 61 mg/dL (8-26) Creatinine 4.7 mg/dL (0.7-1.3) Estimated GFR (Cockcroft-Gault) 15.6 Glucose Level 42 mg/dL (70-99) Calcium Level 7.9 mg/dL (8.5-10.1) Phosphorus Level 3.5 mg/dL (2.6-4.7) Magnesium Level 1.9 mg/dL (1.8-2.4) Albumin 2.4 g/dL (3.4-5.0) Test 10/30/16 06:53 10/30/16 07:27 Glucose (Fingerstick) 27 mg/dL (70-99) 86 mg/dL (70-99) Micro BLOOD CULTURE PRL Final Final report BLD CULT RESULT 1 Final Comment Acinetobacter baumannii Recovered from aerobic bottle only. GROWTH IN 2 OF 2 SETS ANTIMICROBIAL SUSCEPTIBILITY Final Comment S = Susceptible; I = Intermediate; R = Resistant P = Positive; N = Negative MICS are expressed in micrograms per mL Antibiotic RSLT#1 RSLT#2 RSLT#3 RSLT#4 Ceftriaxone I Ciprofloxacin S Gentamicin S Imipenem S Levofloxacin S Piperacillin S Tetracycline S Tobramycin S Trimethoprim/Sulfa S Performed at: [facility] Lab[address] [id number] Detective Lieutenant: Leanna Marie MD, Phone: [phone] Objective Assessment sepsis POA. Acinetobacter Bandemia H/o recent c. diff CKD on HD Cirrhosis of liver w/ refractory ascites DM with hypoglycemia Debility SVT Thrombocytopenia Plan Plan of Care unasyn and rios ,, lab said it is susceptible, d/c on po cipro and iv rios ok Po vancomycin BID for prophylaxis Monitor labs Supportive care CARMINE CLIFTON MD October 30, 2016 10:18
[2016-10-30] MEDS: fentaNYL 50MCG/HR PATCH 1 PATCH PATCH.TD72 TD SCH (11:00)
[2016-10-30] MEDS: IV DEXTROSE 5% 1,000 ML IV SCH (11:15)
--- NOTE | 2016-10-30 11:30 | PDOC ---
SUBJECTIVE ROS ESRD does not answer ROS Qs x with nod of head OBJECTIVE Vital Signs Vital Signs Date Time Temp Pulse Resp B/P (MAP) Pulse Ox O2 Delivery O2 Flow Rate FiO2 10/30/16 07:25 96.8 130 20 124/95 (105) 94 Room Air 96.8 10/29/16 21:59 2.0 I & 0 Intake and Output 10/30/16 07:00 Intake Total 220 ml Balance 220 ml Intake Oral 220 ml PHYSICAL EXAM Physical Exam GEN: Awake, Oriented x ? (does not answer) , In no distress; cachectic and emaciated EYES: Vision Unchanged, Conjunctiva Normal EN: No EN Drainage, Mucous Membranes dry NECK: min JVD, + JVP, Supple, no Thyromegaly CVS: S1S2, + Murmur, No Gallop, No Rub,+1 Edema RESP: no Rales, no Rhonchi,no Acc. 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 ? Improving now that Bacteremia is being treated. Bacteremia: HD Cath has been removed. Temp Cath v/s P/cath today if OK with ID Cachecxia / malnutrition with FTT - Poor near term progonosis Low Plts - hence no P/Cath today. May need Plt infusion on Wednesday to facilitate P/Cath on Wednesday COMMENT/RELEVANT DATA Meds Current Medications Medications (Trade) Dose Ordered Sig/Madi Start Time Stop Time Status Last Admin Dose Admin Acetaminophen (Tylenol) 650 mg PRN Q4HRS PRN 10/24/16 10:45 Acetaminophen/ Hydrocodone Bitart (Lortab 5/325) 1 tab PRN Q6HRS PRN 10/23/16 22:00 Albumin Human 100 ml @ 100 mls/hr Q1H 10/29/16 12:00 10/29/16 13:59 DC 10/29/16 16:00 100 MLS/HR Albuterol Sulfate (Ventolin Neb Soln) 2.5 mg PRN Q4HRS PRN 10/23/16 22:00 Allopurinol (Zyloprim) 100 mg DAILY 10/24/16 11:00 10/29/16 09:37 100 MG Amino Acids/ Glycerin/ Electrolytes 1,000 ml @ 40 mls/hr Q24H 10/24/16 17:15 10/26/16 10:57 DC 10/26/16 04:09 40 MLS/HR Ampicillin Sodium/ Sulbactam Sodium 1.5 gm/Sodium Chloride 50 ml @ 100 mls/hr Q6HRS 10/26/16 18:00 10/30/16 05:44 100 MLS/HR Atorvastatin Calcium (Lipitor) 10 mg QHS 10/26/16 21:00 10/29/16 20:23 10 MG Calcium Acetate (Phoslo) 1,334 mg TIDWMEALS 10/24/16 12:00 10/28/16 18:20 1,334 MG Calcium Chloride 2000 mg/Sodium Chloride 120 ml @ 240 mls/hr 1X ONCE 10/28/16 11:45 10/28/16 12:14 DC 10/28/16 12:45 240 MLS/HR Calcium Gluconate (Calcium Gluconate) 1,000 mg Q2H 10/25/16 07:30 10/25/16 11:31 DC 10/25/16 17:11 1,000 MG Calcium/Vitamin D (Oscal D 500mg/ 200uts) 1 tab TID 10/24/16 14:00 10/29/16 20:22 1 TAB Darbepoetin Aaron (Aranesp) 60 mcg WEEKLYHS 10/28/16 21:00 10/28/16 20:46 60 MCG Dextrose 1,000 ml @ 50 mls/hr Q20H 10/30/16 11:15 Dextrose (Dextrose 50%-Water Syringe) 25 gm 1X ONCE 10/25/16 22:15 10/25/16 22:16 DC 10/25/16 22:00 25 GM Digoxin (Lanoxin) 250 mcg 1X ONCE 10/23/16 20:00 10/23/16 20:01 DC 10/23/16 22:36 250 MCG Diltiazem HCl (Cardizem) 5 mg 1X ONCE 10/23/16 18:45 10/23/16 18:49 DC 10/23/16 19:12 5 MG Diltiazem HCl 125 mg/Dextrose 125 ml @ 0 mls/hr 1X ONCE 10/23/16 18:45 10/23/16 19:59 DC Diphenhydramine HCl (Benadryl) 25 mg 1X PRN PRN 10/27/16 10:15 10/27/16 19:00 DC Famotidine (Pepcid) 20 mg DAILY 10/24/16 11:00 10/29/16 09:37 20 MG Fentanyl (Duragesic 50mcg/ Hr Patch) 1 patch Q72H 10/24/16 11:00 10/27/16 11:49 1 PATCH Ferrous Sulfate (Feosol) 325 mg DAILY 10/24/16 11:00 10/29/16 09:37 325 MG Folic Acid (Folic Acid) 1 mg DAILY 10/24/16 11:00 10/29/16 09:37 1 MG Glucagon (Glucagen) 1 mg 1X PRN PRN 10/27/16 14:47 Glucose (Insta-Glucose) 15 gm PRN Q15MIN PRN 10/24/16 18:00 10/24/16 17:50 15 GM Heparin Sodium (Porcine) 5,000 unit Q8HRS 10/24/16 22:00 10/25/16 14:04 DC 10/25/16 06:09 5,000 UNIT Hydralazine HCl (Apresoline) 10 mg PRN Q4HRS PRN 10/23/16 22:00 Info (PHARMACY MONITORING -- do not chart) 1 each PRN DAILY PRN 10/27/16 10:15 Cancel Insulin Aspart (Novolog) 3 units TIDAC 10/24/16 11:35 10/26/16 07:44 DC Lactobacillus Acidophilus (Bacid, Lou-Bid) 2 tab DAILY 10/24/16 11:00 10/29/16 09:31 2 TAB Levothyroxine Sodium (Synthroid) 75 mcg DAILYAC 10/25/16 07:30 10/29/16 09:36 75 MCG Lidocaine/ Epinephrine (Xylocaine 1%-Epi 1:100,000) 7 ml 1X ONCE 5/2/17 16:00 10/27/16 16:01 DC Lidocaine/Sodium Bicarbonate (Buffered Lidocaine 1%) 4 ml 1X ONCE 10/27/16 15:30 10/27/16 15:59 DC Magnesium Sulfate/ Dextrose 50 ml @ 25 mls/hr PRN DAILY PRN 10/25/16 07:30 10/28/16 09:11 25 MLS/HR Metoprolol Tartrate (Lopressor) 12.5 mg BID 10/24/16 09:30 10/26/16 12:27 DC 10/25/16 21:06 12.5 MG Midodrine (Proamatine) 5 mg [id number] 10/24/16 14:00 10/29/16 09:35 5 MG Non-Formulary Medication 500 mg QID 10/24/16 13:00 10/24/16 13:00 DC Ondansetron HCl (Zofran) 4 mg PRN Q8HRS PRN 10/23/16 22:00 Oxycodone HCl (Roxicodone) 5 mg PRN Q4HRS PRN 10/24/16 11:15 10/29/16 20:23 5 MG Piperacillin Sod/ Tazobactam Sod (Zosyn Per Pharmacy) 1 each PRN DAILY PRN 10/24/16 10:45 10/26/16 13:22 DC Piperacillin Sod/ Tazobactam Sod 2.25 gm/Sodium Chloride 50 ml @ 100 mls/hr Q6HRS 10/24/16 12:00 10/26/16 13:23 DC 10/26/16 12:39 100 MLS/HR Pneumococcal Polyvalent Vaccine (Do NOT chart on this placeholder) 1 each PRN DAILY PRN 10/24/16 00:15 Cancel Potassium Chloride (Klor-Con) 10 meq [id number] 10/24/16 11:00 10/29/16 09:37 10 MEQ Sodium Polystyrene Sulfonate (Kayexalate) 15 gm 1X ONCE 10/25/16 07:00 10/25/16 07:01 DC Sodium Bicarbonate (Sodium Bicarbonate) 650 mg BID 10/24/16 11:00 10/29/16 11:34 DC 10/29/16 09:31 650 MG Sodium Chloride 1,000 ml @ 400 mls/hr Q2H30M PRN 10/27/16 10:11 10/27/16 22:10 DC Sodium Chloride (Normal Saline Flush) 10 ml 1X PRN PRN 10/25/16 09:00 10/26/16 08:59 DC Tobramycin Sulfate 300 mg/ Sodium Chloride 107.5 ml @ 107.5 mls/ hr 1X ONCE 10/29/16 10:30 10/29/16 11:29 DC 10/29/16 13:07 107.5 MLS/HR Vancomycin HCl 125 mg BID 10/26/16 21:00 10/29/16 20:23 125 MG Vancomycin HCl 1.5 gm/Sodium Chloride 500 ml @ 250 mls/hr 1X ONCE 10/24/16 11:15 10/24/16 11:15 DC Vitamin A/Vitamin D (Vitamin A & D Ointment) 1 vanna TID 10/28/16 21:00 10/29/16 20:22 1 VANNA Lab Laboratory Tests Test 10/29/16 14:25 10/29/16 18:03 10/29/16 22:24 10/30/16 06:00 Glucose (Fingerstick) 123 mg/dL (70-99) 81 mg/dL (70-99) 120 mg/dL (70-99) Sodium Level 135 mmol/L (136-145) Potassium Level 4.6 mmol/L (3.5-5.1) Chloride Level 100 mmol/L (98-107) Carbon Dioxide Level 26 mmol/L (21-32) Anion Gap 9 (6-14) Blood Urea Nitrogen 61 mg/dL (8-26) Creatinine 4.7 mg/dL (0.7-1.3) Estimated GFR (Cockcroft-Gault) 15.6 Glucose Level 42 mg/dL (70-99) Calcium Level 7.9 mg/dL (8.5-10.1) Phosphorus Level 3.5 mg/dL (2.6-4.7) Magnesium Level 1.9 mg/dL (1.8-2.4) Albumin 2.4 g/dL (3.4-5.0) Test 10/30/16 06:53 10/30/16 07:27 10/30/16 10:18 Glucose (Fingerstick) 27 mg/dL (70-99) 86 mg/dL (70-99) 125 mg/dL (70-99) CELINA CLIFTON MD October 30, 2016 11:30
[2016-10-30] MEDS ORDERED: HEPARIN for IV BOLUS 10,000 UNIT/10 ML VIAL. ONE (11:37)
[2016-10-30] MEDS ORDERED: LIDOCAINE 1% / SOD BICARB 8.4% 20 ML VIAL. IJ ONE ×2 (11:38→12:00)
[2016-10-30] MEDS ORDERED: IOHEXOL 300 MG/ML 50 ML VIAL. ONE (12:19)
[2016-10-30] MEDS ORDERED: CONTRAST GIVEN MC PRN (12:30)
[2016-10-30] MEDS ORDERED: IOHEXOL 300 MG/ML 50 ML VIAL. IJ ONE (12:30)
--- NOTE | 2016-10-30 12:33 | PDOC ---
PROGRESS NOTES Chief Complaint Chief Complaint cc: syncopal episode, SVT, ESRD, Acinetobacter bacteremia ESRD, on HD anemia of chronic disease chronic diastolic heart failure DM type II GERD hyperlipidemia hypertension, with HYPOTENSION around HD hypothyroidism hepatitis, end stage cirrhosis with chronic ascites gout cardiomyopathy prior C. diff. History of Present Illness History of Present Illness non conversant again Known to me hypoglycemia frequently pt NOt ready for hospice DRained 9 L yesterday ID still has on IV unasyn and a dose tobramycin IV today Waiting on sensitivities from lab For temp HD today, then if BC neg (permanent cath on wednesday then dc to SNU) Dw renal plan: fu with renal and ID still on iv abx need perm HD cath on Wednesday, PLt chronically low, may need transfusion for HD insertion poor prognosis, should be hospice, but pt and family refuse every time when he came here d5 for now for hypoglycemia and low po intake Vitals Vitals Vital Signs Date Time Temp Pulse Resp B/P (MAP) Pulse Ox O2 Delivery O2 Flow Rate FiO2 10/30/16 07:25 96.8 130 20 124/95 (105) 94 Room Air 96.8 10/29/16 21:59 2.0 Physical Exam General: Alert, No acute distress Heart: Normal S1, Other (tachycardia, on midorinine gtt. ) Lungs: Clear, Other (diminished inspiratory effort. negative chest retractions and/or accessory muscle use. ) Abdomen: Other Extremities: No clubbing, Other Skin: No rashes, Other (Left ankle ulcer. Right shoulder ulcer. dressing placed. ) Labs LABS Laboratory Tests Test 10/29/16 14:25 10/29/16 18:03 10/29/16 22:24 10/30/16 06:00 Glucose (Fingerstick) 123 mg/dL (70-99) 81 mg/dL (70-99) 120 mg/dL (70-99) Sodium Level 135 mmol/L (136-145) Potassium Level 4.6 mmol/L (3.5-5.1) Chloride Level 100 mmol/L (98-107) Carbon Dioxide Level 26 mmol/L (21-32) Anion Gap 9 (6-14) Blood Urea Nitrogen 61 mg/dL (8-26) Creatinine 4.7 mg/dL (0.7-1.3) Estimated GFR (Cockcroft-Gault) 15.6 Glucose Level 42 mg/dL (70-99) Calcium Level 7.9 mg/dL (8.5-10.1) Phosphorus Level 3.5 mg/dL (2.6-4.7) Magnesium Level 1.9 mg/dL (1.8-2.4) Albumin 2.4 g/dL (3.4-5.0) Test 10/30/16 06:53 10/30/16 07:27 10/30/16 10:18 Glucose (Fingerstick) 27 mg/dL (70-99) 86 mg/dL (70-99) 125 mg/dL (70-99) Review of Systems Review of Systems no fever, chills, sob or chest pain Assessment and Plan Assessmemt and Plan Problems Medical Problems: (1) Ascites Status: Acute (2) ESRD (end stage renal disease) on dialysis Status: Acute (3) SVT (supraventricular tachycardia) Status: Acute (4) Syncope Status: Acute Problems: Comment Review of Relevant I have reviewed the following items дмитрий (where applicable) has been applied. Labs Laboratory Tests Test 10/28/16 13:50 10/28/16 16:13 10/28/16 18:12 10/28/16 22:06 Glucose (Fingerstick) 141 mg/dL (70-99) 161 mg/dL (70-99) 154 mg/dL (70-99) 185 mg/dL (70-99) Test 10/29/16 00:55 10/29/16 02:03 10/29/16 05:59 10/29/16 07:18 White Blood Count 7.3 x10^3/uL (4.0-11.0) Red Blood Count 3.71 x10^6/uL (4.30-5.70) Hemoglobin 10.5 g/dL (13.0-17.5) Hematocrit 33.1 % (39.0-53.0) Mean Corpuscular Volume 89 fL (79-100) Mean Corpuscular Hemoglobin 28 pg (25-35) Mean Corpuscular Hemoglobin Concent 32 g/dL (31-37) Red Cell Distribution Width 17.8 % (11.5-14.5) Platelet Count 20 x10^3/uL (140-400) Neutrophils (%) (Auto) 86 % (31-73) Lymphocytes (%) (Auto) 7 % (24-48) Monocytes (%) (Auto) 6 % (0-9) Eosinophils (%) (Auto) 1 % (0-3) Basophils (%) (Auto) 1 % (0-3) Neutrophils # (Auto) 6.3 x10^3uL (1.8-7.7) Lymphocytes # (Auto) 0.5 x10^3/uL (1.0-4.8) Monocytes # (Auto) 0.4 x10^3/uL (0.0-1.1) Eosinophils # (Auto) 0.1 x10^3/uL (0.0-0.7) Basophils # (Auto) 0.0 x10^3/uL (0.0-0.2) Sodium Level 134 mmol/L (136-145) Potassium Level 3.9 mmol/L (3.5-5.1) Chloride Level 99 mmol/L (98-107) Carbon Dioxide Level 28 mmol/L (21-32) Anion Gap 7 (6-14) Blood Urea Nitrogen 50 mg/dL (8-26) Creatinine 4.1 mg/dL (0.7-1.3) Estimated GFR (Cockcroft-Gault) 18.2 Glucose Level 203 mg/dL (70-99) Calcium Level 7.3 mg/dL (8.5-10.1) Phosphorus Level 3.3 mg/dL (2.6-4.7) Magnesium Level 1.9 mg/dL (1.8-2.4) Albumin 2.0 g/dL (3.4-5.0) Glucose (Fingerstick) 148 mg/dL (70-99) 167 mg/dL (70-99) 144 mg/dL (70-99) Test 10/29/16 09:52 10/29/16 14:25 10/29/16 18:03 10/29/16 22:24 Glucose (Fingerstick) 124 mg/dL (70-99) 123 mg/dL (70-99) 81 mg/dL (70-99) 120 mg/dL (70-99) Test 10/30/16 06:00 10/30/16 06:53 10/30/16 07:27 10/30/16 10:18 Sodium Level 135 mmol/L (136-145) Potassium Level 4.6 mmol/L (3.5-5.1) Chloride Level 100 mmol/L (98-107) Carbon Dioxide Level 26 mmol/L (21-32) Anion Gap 9 (6-14) Blood Urea Nitrogen 61 mg/dL (8-26) Creatinine 4.7 mg/dL (0.7-1.3) Estimated GFR (Cockcroft-Gault) 15.6 Glucose Level 42 mg/dL (70-99) Calcium Level 7.9 mg/dL (8.5-10.1) Phosphorus Level 3.5 mg/dL (2.6-4.7) Magnesium Level 1.9 mg/dL (1.8-2.4) Albumin 2.4 g/dL (3.4-5.0) Glucose (Fingerstick) 27 mg/dL (70-99) 86 mg/dL (70-99) 125 mg/dL (70-99) Laboratory Tests Test 10/29/16 14:25 10/29/16 18:03 10/29/16 22:24 10/30/16 06:00 Glucose (Fingerstick) 123 mg/dL (70-99) 81 mg/dL (70-99) 120 mg/dL (70-99) Sodium Level 135 mmol/L (136-145) Potassium Level 4.6 mmol/L (3.5-5.1) Chloride Level 100 mmol/L (98-107) Carbon Dioxide Level 26 mmol/L (21-32) Anion Gap 9 (6-14) Blood Urea Nitrogen 61 mg/dL (8-26) Creatinine 4.7 mg/dL (0.7-1.3) Estimated GFR (Cockcroft-Gault) 15.6 Glucose Level 42 mg/dL (70-99) Calcium Level 7.9 mg/dL (8.5-10.1) Phosphorus Level 3.5 mg/dL (2.6-4.7) Magnesium Level 1.9 mg/dL (1.8-2.4) Albumin 2.4 g/dL (3.4-5.0) Test 10/30/16 06:53 10/30/16 07:27 10/30/16 10:18 Glucose (Fingerstick) 27 mg/dL (70-99) 86 mg/dL (70-99) 125 mg/dL (70-99) Microbiology 10/25/16 Blood Culture - Final, Complete NO GROWTH AFTER 5 DAYS 10/27/16 Gram Stain - Final, Complete 10/27/16 Gram Stain - Final, Complete Medications Current Medications Sodium Chloride 500 ml @ 250 mls/hr 1X ONCE IV Last administered on 16:24; Start 10/23/16 at 16:15; Stop 10/23/16 at 18:14; Status DC Sodium Chloride 500 ml @ 250 mls/hr 1X ONCE IV Last administered on 17:15; Start 10/23/16 at 17:15; Stop 10/23/16 at 19:14; Status DC Diltiazem HCl (Cardizem) 5 mg 1X ONCE IVP Last administered on 10/23/16 19:12 ; Start 10/23/16 at 18:45; Stop 10/23/16 at 18:49; Status DC Diltiazem HCl 125 mg/Dextrose 125 ml @ 0 mls/hr 1X ONCE IV ; Start 10/23/16 at 18:45; Stop 10/23/16 at 19:59; Status DC Digoxin (Lanoxin) 250 mcg 1X ONCE IV Last administered on 10/23/16 22:36; Start 10/23/16 at 20:00; Stop 10/23/16 at 20:01; Status DC Ondansetron HCl (Zofran) 4 mg PRN Q8HRS PRN IV NAUSEA/VOMITING; Start 10/23/16 at 20:15; Stop 10/23/16 at 22:04; Status DC Acetaminophen (Tylenol) 650 mg PRN Q4HRS PRN PO FEVER; Start 10/23/16 at 20:15 ; Stop 10/23/16 at 22:04; Status DC Acetaminophen (Tylenol) 325 mg PRN Q6HRS PRN PO MILD PAIN / TEMP; Start at 22:00; Stop 10/25/16 at 11:09; Status DC Acetaminophen/ Hydrocodone Bitart (Lortab 5/325) 1 tab PRN Q6HRS PRN PO MODERATE TO SEVERE PAIN; Start 10/23/16 at 22:00 Hydralazine HCl (Apresoline) 10 mg PRN Q4HRS PRN IVP ELEVATED BP, SEE COMMENTS ; Start 10/23/16 at 22:00 Ondansetron HCl (Zofran) 4 mg PRN Q8HRS PRN IV NAUSEA/VOMITING; Start 10/23/16 at 22:00 Albuterol Sulfate (Ventolin Neb Soln) 2.5 mg PRN Q4HRS PRN NEB SHORTNESS OF BREATH; Start 10/23/16 at 22:00 Sodium Chloride 500 ml @ 500 mls/hr 1X ONCE IV Last administered on 22:34; Start 10/23/16 at 22:30; Stop 10/23/16 at 23:29; Status DC Pneumococcal Polyvalent Vaccine (Do NOT chart on this placeholder) 1 each PRN DAILY PRN [facility] UNABLE TO RESPOND; Start 10/24/16 at 00:15; Status Cancel Dextrose (Dextrose 50%-Water Syringe) 12.5 gm PRN Q15MIN PRN IV SEE COMMENTS Last administered on 10/25/16 21:40; Start 10/24/16 at 01:15; Stop 10/29/16 at 15:08; Status DC Dextrose (Dextrose 50%-Water Syringe) 25 gm STK-MED ONCE IV ; Start 10/24/16 at 01:05; Stop 10/24/16 at 01:06; Status DC Metoprolol Tartrate (Lopressor) 12.5 mg BID PO Last administered on 10/25/16 21:06; Start 10/24/16 at 09:30; Stop 10/26/16 at 12:27; Status DC Acetaminophen (Tylenol) 650 mg PRN Q4HRS PRN PO PAIN; Start 10/24/16 at 10:45 Allopurinol (Zyloprim) 100 mg DAILY PO Last administered on 10/29/16 09:37; Start 10/24/16 at 11:00 Atorvastatin Calcium (Lipitor) 10 mg DAILY PO Last administered on 10/24/16 13 :52; Start 10/24/16 at 11:00; Stop 10/25/16 at 14:11; Status DC Calcium Acetate (Phoslo) 1,334 mg TIDWMEALS PO Last administered on 10/28/16 18 :20; Start 10/24/16 at 12:00 Diphenhydramine HCl (Benadryl) 25 mg PRN Q4HRS PRN PO ITCHING; Start 10/24/16 at 10:45 Famotidine (Pepcid) 20 mg DAILY PO Last administered on 10/29/16 09:37; Start 10/24/16 at 11:00 Fentanyl (Duragesic 50mcg/ Hr Patch) 1 patch Q72H TD Last administered on 11:49; Start 10/24/16 at 11:00 Ferrous Sulfate (Feosol) 325 mg DAILY PO Last administered on 10/29/16 09:37; Start 10/24/16 at 11:00 Folic Acid (Folic Acid) 1 mg DAILY PO Last administered on 10/29/16 09:37; Start 10/24/16 at 11:00 Levothyroxine Sodium (Synthroid) 75 mcg DAILYAC PO Last administered on 09:36; Start 10/25/16 at 07:30 Midodrine (Proamatine) 2.5 mg PRN TID PRN PO BLOOD PRESSURE; Start 10/24/16 at 10:45 Midodrine (Proamatine) 5 mg [id number] PO Last administered on 10/29/16 09:35; Start 10/24/16 at 14:00 Sodium Bicarbonate (Sodium Bicarbonate) 650 mg BID PO Last administered on 09:31; Start 10/24/16 at 11:00; Stop 10/29/16 at 11:34; Status DC Calcium/Vitamin D (Oscal D 500mg/ 200uts) 1 tab TID PO Last administered on 10/29 20:22; Start 10/24/16 at 14:00 Non-Formulary Medication 500 mg QID PO ; Start 10/24/16 at 13:00; Stop 10/24/16 at 13:00; Status DC Glucagon (Glucagen) 1 mg 1X PRN IM HYPOGLYCEMIA; Start 10/24/16 at 11:00; Stop 10/27/16 at 14:47; Status DC Insulin Aspart (Novolog) 3 units TIDAC SQ ; Start 10/24/16 at 11:30; Stop at 11:36; Status DC Lactobacillus Acidophilus (Bacid, Lou-Bid) 2 tab DAILY PO Last administered on 10/29/16 09:31; Start 10/24/16 at 11:00 Oxycodone HCl (Roxicodone) 5 mg PRN Q4HRS PRN PO PAIN Last administered on 20:23; Start 10/24/16 at 11:15 Potassium Chloride (Klor-Con) 10 meq DAILYWBKFT PO Last administered on 09:37; Start 10/24/16 at 11:00 Vancomycin HCl 125 mg Q6HRS PO Last administered on 10/26/16 06:14; Start 10/24 at 12:00; Stop 10/26/16 at 11:21; Status DC Piperacillin Sod/ Tazobactam Sod (Zosyn Per Pharmacy) 1 each PRN DAILY PRN MC SEE COMMENTS; Start 10/24/16 at 10:45; Stop 10/26/16 at 13:22; Status DC Vancomycin HCl 1.5 gm/Sodium Chloride 500 ml @ 250 mls/hr 1X ONCE IV ; Start 10/24/16 at 11:15; Stop 10/24/16 at 11:15; Status DC Piperacillin Sod/ Tazobactam Sod 2.25 gm/Sodium Chloride 50 ml @ 100 mls/hr Q6HRS IV Last administered on 10/26/16 12:39; Start 10/24/16 at 12:00; Stop 10/26/16 at 13:23; Status DC Insulin Aspart (Novolog) 3 units TIDAC SQ ; Start 10/24/16 at 11:35; Stop at 07:44; Status DC Heparin Sodium (Porcine) 5,000 unit Q8HRS SQ Last administered on 10/25/16 06: 09; Start 10/24/16 at 22:00; Stop 10/25/16 at 14:04; Status DC Amino Acids/ Glycerin/ Electrolytes 1,000 ml @ 40 mls/hr Q24H IV Last administered on 10/26/16 04:09; Start 10/24/16 at 17:15; Stop 10/26/16 at 10:57; Status DC Dextrose (Dextrose 50%-Water Syringe) 25 gm PRN Q1HR PRN IV SEE COMMENTS Last administered on 10/26/16 08:54; Start 10/24/16 at 17:15 Glucose (Insta-Glucose) 15 gm STK-MED ONCE .ROUTE ; Start 10/24/16 at 17:44; Stop 10/24/16 at 17:45; Status DC Glucose (Insta-Glucose) 15 gm PRN Q15MIN PRN PO LOW BLOOD SUGAR Last administered on 10/24/16 17:50; Start 10/24/16 at 18:00 Sodium Polystyrene Sulfonate (Kayexalate) 15 gm 1X ONCE PO ; Start 10/25/16 at 07:00; Stop 10/25/16 at 07:01; Status DC Magnesium Sulfate/ Dextrose 50 ml @ 25 mls/hr PRN DAILY PRN IV for Mag < 1.7 on am labs Last administered on 10/28/16 09:11; Start 10/25/16 at 07:30 Calcium Gluconate (Calcium Gluconate) 1,000 mg Q2H IVP Last administered on 17:11; Start 10/25/16 at 07:30; Stop 10/25/16 at 11:31; Status DC Albumin Human 100 ml @ 100 mls/hr 1X ONCE IV Last administered on 10/25/16 08:32; Start 10/25/16 at 08:30; Stop 10/25/16 at 09:29; Status DC Albumin Human 50 ml @ 50 mls/hr 1X ONCE IV Last administered on 10/25/16 08: 30; Start 10/25/16 at 08:30; Stop 10/25/16 at 09:29; Status DC Info (PHARMACY MONITORING -- do not chart) 1 each PRN DAILY PRN MC SEE COMMENTS ; Start 10/25/16 at 08:45 Info (PHARMACY MONITORING -- do not chart) 1 each PRN DAILY PRN MC SEE COMMENTS ; Start 10/25/16 at 08:45; Status Cancel Sodium Chloride 1,000 ml @ 1,000 mls/hr Q1H PRN IV hypotension; Start 10/25/16 at 08:54; Stop 10/25/16 at 14:53; Status DC Albumin Human 200 ml @ 200 mls/hr 1X PRN PRN IV Hypotension Last administered on 10/25/16 09:08; Start 10/25/16 at 09:00; Stop 10/25/16 at 14:59; Status DC Sodium Chloride (Normal Saline Flush) 10 ml 1X PRN PRN IV AP catheter pack; Start 10/25/16 at 09:00; Stop 10/26/16 at 08:59; Status DC Sodium Chloride (Normal Saline Flush) 10 ml 1X PRN PRN IV PRODUCTION SORTER catheter pack; Start 10/25/16 at 09:00; Stop 10/26/16 at 08:59; Status DC Info (PHARMACY MONITORING -- do not chart) 1 each PRN DAILY PRN MC SEE COMMENTS ; Start 10/25/16 at 09:00; Status Cancel Info (PHARMACY MONITORING -- do not chart) 1 each PRN DAILY PRN MC SEE COMMENTS ; Start 10/25/16 at 09:00; Stop 10/26/16 at 11:18; Status DC Atorvastatin Calcium (Lipitor) 10 mg QHS PO Last administered on 10/29/16 20:23 ; Start 10/26/16 at 21:00 Dextrose (Dextrose 50%-Water Syringe) 25 gm 1X ONCE IV Last administered on 22:00; Start 10/25/16 at 22:15; Stop 10/25/16 at 22:16; Status DC Dextrose 1,000 ml @ 80 mls/hr [id number] IV Last administered on 10/28/16 05:19; Start 10/26/16 at 11:00; Stop 10/28/16 at 13:57; Status DC Vancomycin HCl 125 mg BID PO Last administered on 10/29/16 20:23; Start at 21:00 Ampicillin Sodium/ Sulbactam Sodium 1.5 gm/Sodium Chloride 50 ml @ 100 mls/hr Q6HRS IV Last administered on 10/30/16 05:44; Start 10/26/16 at 18:00 Sodium Chloride 1,000 ml @ 1,000 mls/hr Q1H PRN IV hypotension; Start 10/27/16 at 10:11; Stop 10/27/16 at 16:10; Status DC Albumin Human 200 ml @ 200 mls/hr 1X PRN PRN IV Hypotension Last administered on 10/27/16 11:18; Start 10/27/16 at 10:15; Stop 10/27/16 at 16:14; Status DC Diphenhydramine HCl (Benadryl) 25 mg 1X PRN PRN IV ITCHING; Start 10/27/16 at 10 :15; Stop 10/27/16 at 19:00; Status DC Diphenhydramine HCl (Benadryl) 25 mg 1X PRN PRN IV ITCHING; Start 10/27/16 at 10 :15; Stop 10/27/16 at 19:00; Status DC Sodium Chloride 1,000 ml @ 400 mls/hr Q2H30M PRN IV PATENCY; Start 10/27/16 at 10:11; Stop 10/27/16 at 22:10; Status DC Info (PHARMACY MONITORING -- do not chart) 1 each PRN DAILY PRN MC SEE COMMENTS ; Start 10/27/16 at 10:15; Status Cancel Lidocaine/ Epinephrine (Xylocaine 1%-Epi 1:100,000) 20 ml STK-MED ONCE .ROUTE ; Start 10/27/16 at 14:41; Stop 10/27/16 at 14:42; Status DC Glucagon (Glucagen) 1 mg 1X PRN PRN IM HYPOGLYCEMIA; Start 10/27/16 at 14:47 Lidocaine/Sodium Bicarbonate (Buffered Lidocaine 1%) 4 ml 1X ONCE IJ ; Start at 15:30; Stop 10/27/16 at 15:59; Status DC Albumin Human 100 ml @ 100 mls/hr 1X ONCE IV Last administered on 10/27/16 15 :57; Start 10/27/16 at 16:00; Stop 10/27/16 at 16:59; Status DC Lidocaine/ Epinephrine (Xylocaine 1%-Epi 1:100,000) 7 ml 1X ONCE INJ ; Start at 16:00; Stop 10/27/16 at 16:01; Status DC Calcium Chloride 2000 mg/Sodium Chloride 120 ml @ 240 mls/hr 1X ONCE IV Last administered on 10/28/16 12:45; Start 10/28/16 at 11:45; Stop 10/28/16 at 12:14; Status DC Darbepoetin Aaron (Aranesp) 60 mcg [id number] SQ Last administered on 10/28/16 20: 46; Start 10/28/16 at 21:00 Vitamin A/Vitamin D (Vitamin A & D Ointment) 1 vanna TID TP Last administered on 10/29/16 20:22; Start 10/28/16 at 21:00 Tobramycin Sulfate 300 mg/ Sodium Chloride 107.5 ml @ 107.5 mls/ hr 1X ONCE IV Last administered on 10/29/16t 13:07; Start 10/29/16 at 10:30; Stop 10/29/16 at 11:29; Status DC Albumin Human 100 ml @ 100 mls/hr Q1H IV Last administered on 10/29/16t 16:00; Start 10/29/16 at 12:00; Stop 10/29/16 at 13:59; Status DC Dextrose 1,000 ml @ 50 mls/hr Q20H IV ; Start 10/30/16 at 11:15 Heparin Sodium (Porcine) (Heparin Sodium) 10,000 unit STK-MED ONCE .ROUTE ; Start 10/30/16 at 11:37; Stop 10/30/16 at 11:38; Status DC Lidocaine/Sodium Bicarbonate (Buffered Lidocaine 1%) 20 ml STK-MED ONCE IJ ; Start 10/30/16 at 11:38; Stop 10/30/16 at 11:39; Status DC Heparin Sodium/ Sodium Chloride 500 ml @ As Directed STK-MED ONCE .ROUTE ; Start 10/30/16 at 11:38; Stop 10/30/16 at 11:39; Status DC Lidocaine/Sodium Bicarbonate (Buffered Lidocaine 1%) 3 ml 1X ONCE IJ ; Start at 12:00; Stop 10/30/16 at 12:06; Status DC Heparin Sodium (Porcine) (Heparin Sodium) 2,400 unit 1X ONCE INT CAT ; Start at 12:00; Stop 10/30/16 at 12:06; Status DC Heparin Sodium/ Sodium Chloride 60 unit 1X ONCE IV ; Start 10/30/16 at 12:00; Stop 10/30/16 at 12:06; Status DC Iohexol (Omnipaque 300 Mg/ml) 50 ml STK-MED ONCE .ROUTE ; Start 10/30/16 at 12:19 ; Stop 10/30/16 at 12:20; Status DC Iohexol (Omnipaque 300 Mg/ml) 50 ml 1X ONCE IJ ; Start 10/30/16 at 12:30; Stop 10/30/16 at 12:31 Info (Do NOT chart on this entry -- for MONITORING) 1 each PRN DAILY PRN MC SEE COMMENTS; Start 10/30/16 at 12:30; Stop 11/01/16 at 12:29 Active Scripts Active Midodrine Hcl 2.5 Mg Tablet 2.5 Mg PO PRN TID PRN Reported Gluco Burst (Dextrose) 37.5 Gm Gel..gram. 37.5 Gm PO PRN Glucagon Emergency Kit (Glucagon,Human Recombinant) 1 Mg Kit 1 Mg IM PRN Ferrous Sulfate 325 Mg Tablet 1 Tab PO DAILY DURAGESIC 50mcg/hr (Fentanyl) 1 Each Patch.td72 1 Patch TD Q72H Benadryl (Diphenhydramine Hcl) 25 Mg Capsule 25 Mg PO PRN Q4HRS PRN Midodrine Hcl 5 Mg Tablet 5 Mg PO BID Sodium Bicarbonate 650 Mg Tablet 650 Mg PO BID Potassium Chloride 10 Meq Tablet.er 10 Meq PO DAILY Keflex (Cephalexin) 500 Mg Capsule 500 Mg PO QID Humalog Kwikpen (Insulin Lispro) 200 Unit/1 Ml Insuln.pen 3 Unit SQ TIDAC Famotidine 20 Mg Tablet 20 Mg PO DAILY Oxycodone Hcl 15 Mg Tablet 1 Tab PO PRN Q4HRS PRN Phoslo (Calcium Acetate) 667 Mg Capsule 2 Cap PO TIDWMEALS Allopurinol 100 Mg Tablet 1 Tab PO DAILY Oyster Shell Calcium-Vit D Tab (Calcium Carbonate/Vitamin D2) 1 Each Tablet 1 Each PO TID Acidophilus Lactobacillus (Lactobacillus Acidophilus) 1 Each Capsule 1 Each PO DAILY Acetaminophen 325 Mg Tablet 650 Mg PO PRN Q4HRS PRN Atorvastatin Calcium 10 Mg Tablet 1 Tab PO DAILY Folic Acid 1 Mg Tablet 1 Mg PO DAILY Levothyroxine Sodium 25 Mcg Tablet 75 Mcg PO DAILYAC Vitals/I & O Vital Sign - Last 24 Hours 10/29/16 10/29/16 10/29/16 10/29/16 15:00 19:00 20:01 20:23 Temp 98.9 97.5 98.9 97.5 Pulse 85 88 Resp 16 18 18 B/P (MAP) 120/86 (97) 106/84 (91) Pulse Ox 97 92 O2 Delivery Nasal Cannula Room Air Nasal Cannula Room Air O2 Flow Rate 2.0 2.0 10/29/16 10/29/16 10/30/16 10/30/16 21:59 23:00 03:00 07:25 Temp 97.6 97.4 96.8 97.6 97.4 96.8 Pulse 81 119 130 Resp 20 20 20 20 B/P (MAP) 132/95 (107) 151/115 (127) 124/95 (105) Pulse Ox 97 96 94 O2 Delivery Nasal Cannula Room Air Room Air Room Air O2 Flow Rate 2.0 Intake and Output 10/29/16 10/29/16 10/30/16 15:00 23:00 07:00 Intake Total 120 ml 100 ml 0 ml Balance 120 ml 100 ml 0 ml Nutrition Consultation Dietary Evaluation: Recommendations by RD: Increase Calorie Intake, Protein supplementation Comments: Rec. continue novasource renal TID - 475kcal and 21.6g protein per serving Rec. nephrovite and 500mg vit c q day to aid wound healing Expected Outcomes/Goals: to meet >75% est nutr needs Malnutrition Findings: Food and Nutrition Intake (Mod: <75% est energy req 7days Body Fat Depletion (Non Severe: Mod to Severe Weight Status: Appropriate JOSSE STAHL MD October 30, 2016 12:33
--- NOTE | 2016-10-30 13:16 | RAD ---
Procedure: Ultrasound and fluoroscopic guided temporary hemodialysis catheter placement, and SVC venogram Clinical Indication: 56-year-old requiring hemodialysis Sedation: Local anesthesia only Antibiotics: None Exposure: Kerma-Area Product: 12 Gycm2 Contrast: 5 cc of Isovue-300 contrast media Sterility: All elements of maximal sterile barrier technique including the use of a cap, mask, sterile gown, sterile gloves, large sterile sheet, appropriate hand hygiene, and 2% chlorhexidine for cutaneous antisepsis (or acceptable alternative antiseptic per current guidelines) were followed for this procedure. Consent: The procedure was explained in its entirety to the patient or the patients designated event marketing representative by a member of the treatment team, including a discussion of the risks, benefits and commonly accepted alternatives to the procedure, as well as the expected consequences of no therapy whatsoever. Discussion of the risks included, but was not limited to, those that are most frequent and those that are rare but possibly severe or life-threatening, as well as the possibility of unforeseen complications. Technique and Findings: Following informed consent, the patient was prepped and draped in usual sterile fashion. Ultrasound interrogation of the right neck revealed patency of the right internal jugular vein. A Hardcopy ultrasound image was recorded. 1% lidocaine was used to achieve local anesthesia. Under ultrasound guidance, a 21-gauge micropuncture needle was used to gain access to the right internal jugular vein. A wire could not be advanced however. Consequently, venography was performed. This demonstrates a high-grade focal stenosis at the junction of the internal jugular vein and right brachycephalic vein behind the clavicular head. Though high-grade, some contrast was seen to flow in an antegrade fashion. Consequently, the needle was exchanged over wire for a 4 Occitan sheath and a Glidewire was successfully manipulated through the stenosis to achieve access into the IVC. The Glidewire was then exchanged for Diaz wire. The tract was serially dilated and a 20 cm Schon hemodialysis catheter was advanced and positioned under fluoroscopic guidance with the distal tip in the mid right atrium. Flow rates were assessed and found to be excellent. The catheter was then flushed, packed with heparin, capped, and sutured to the skin. A purse-string suture was applied to the prior exit site from the tunneled catheter which was removed 3 days ago, due to persistent bleeding. Complications: No immediate Impression: 1. Ultrasound and fluoroscopic guided placement of a right internal jugular venous temporary hemodialysis catheter as described. 2. 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
--- NOTE | 2016-10-30 13:22 | PDOC ---
Objective: Objective: No new GI concerns per RN. Vital Signs: Vital Signs Date Time Temp Pulse Resp B/P (MAP) Pulse Ox O2 Delivery O2 Flow Rate FiO2 10/30/16 10:15 96.3 83 20 141/97 (112) 96 Room Air 96.3 10/29/16 21:59 2.0 Labs: Laboratory Tests Test 10/29/16 14:25 10/29/16 18:03 10/29/16 22:24 10/30/16 06:00 Glucose (Fingerstick) 123 mg/dL 81 mg/dL 120 mg/dL Sodium Level 135 mmol/L Potassium Level 4.6 mmol/L Chloride Level 100 mmol/L Carbon Dioxide Level 26 mmol/L Anion Gap 9 Blood Urea Nitrogen 61 mg/dL Creatinine 4.7 mg/dL Estimated GFR (Cockcroft-Gault) 15.6 Glucose Level 42 mg/dL Calcium Level 7.9 mg/dL Phosphorus Level 3.5 mg/dL Magnesium Level 1.9 mg/dL Albumin 2.4 g/dL Test 10/30/16 06:53 10/30/16 07:27 10/30/16 10:18 Glucose (Fingerstick) 27 mg/dL 86 mg/dL 125 mg/dL PE: GEN: NAD ABD: distended NEURO/PSYCH: awake, mumbles A/P: Cirrhosis, recurrent ascites -paracentesis 10/27 >9000cc removed H/o Ciff ESRD on HD -temp HD cath today -- Will need repeat paracentesis eventually. SARAVANAN KEARNEY October 30, 2016 13:22
[2016-10-30 14:45] VITALS: BP 130/93
[2016-10-30] MEDS ORDERED: IV NORMAL SALINE 1000ML BAG 1,000 ML IV PRN (15:50)
[2016-10-30] MEDS ORDERED: diphenhydrAMINE 50 MG/ML VIAL IV PRN ×2 (16:00)
[2016-10-30] MEDS ORDERED: 0.9 % SODIUM CHLORIDE 10 ML DISP.SYRIN. IV PRN ×2 (16:00)
[2016-10-30] MEDS ORDERED: DIALYSIS PATIENT. MC PRN (16:00)
[2016-10-30] MEDS ORDERED: ALBUMIN HUMAN 25% 200 ML IV PRN (16:00)
[2016-10-30] MEDS ORDERED: GELATIN SPONGE SIZE 12-7MM SPONGE. TP STA (17:22)
[2016-10-30] MEDS ORDERED: GELATIN SPONGE SIZE 100. ONE (17:29)
[2016-10-30 17:44] LABS: INR 1.9 (0.8-1.1); PROTHROMBIN TIME PATIENT 20.3 SEC (11.7-14.0)
[2016-10-30] MEDS: ATORVASTATIN CALCIUM 10 MG TABLET. PO SCH (20:17)
[2016-10-31] VITALS (8 sets, daily range): BP systolic 106–143; BP diastolic 68–103
[2016-10-31] MEDS: AMPICILLIN/SULBACTAM 1.5 GM in IV NORMAL SALINE 50ML 50 ML IV SCH ×4 (00:32→17:23)
[2016-10-31] MEDS: IV DEXTROSE 5% 1,000 ML IV SCH ×2 (05:56→22:20)
[2016-10-31 06:15] LABS: BASO % 0 % (0-3); EOS % 0 % (0-3); HEMATOCRIT 24.1 % (39.0-53.0); HEMOGLOBIN 8.1 g/dL (13.0-17.5); LYMPH # 0.5 x10^3/uL (1.0-4.8); LYMPH % 6 % (24-48); MEAN CORPUSCULAR HEMOGLOBIN 29 pg (25-35); MEAN CORPUSCULAR HGB CONC 34 g/dL (31-37); MEAN CORPUSCULAR VOLUME 87 fL (79-100); MONO % 3 % (0-9); NEUT % 90 % (31-73); PLATELET COUNT 29 x10^3/uL (140-400); RED BLOOD COUNT 2.79 x10^6/uL (4.30-5.70); RED CELL DISTRIBUTION WIDTH 17.6 % (11.5-14.5); WHITE BLOOD COUNT 7.6 x10^3/uL (4.0-11.0)
[2016-10-31 06:36] LABS: ALBUMIN 2.6 g/dL (3.4-5.0); CALCIUM 7.7 mg/dL (8.5-10.1); CREATININE 2.8 mg/dL (0.7-1.3); GFR 28.3; PHOSPHORUS 2.3 mg/dL (2.6-4.7); POTASSIUM 3.6 mmol/L (3.5-5.1)
[2016-10-31] MEDS: LACTOBACILLUS ACIDOPH & BULGAR 1 TABLET. PO SCH (08:36)
[2016-10-31] MEDS: FOLIC ACID 1 MG TABLET. PO SCH (08:37)
[2016-10-31] MEDS: MIDODRINE 5 MG TABLET PO SCH ×2 (08:37→14:00)
[2016-10-31] MEDS: FERROUS SULFATE 325 MG TABLET. PO SCH (08:37)
[2016-10-31] MEDS: LEVOTHYROXINE 25 MCG TABLET. PO SCH (08:37)
[2016-10-31] MEDS: POTASSIUM CHLORIDE 10 MEQ TABLET.ER. PO SCH (08:38)
[2016-10-31] MEDS: CALCIUM ACETATE 667 MG CAPSULE PO SCH ×3 (08:38→17:24)
[2016-10-31] MEDS: CALCIUM CARB/VIT D3 500/200 TABLET. PO SCH ×3 (08:38→22:00)
[2016-10-31] MEDS: ALLOPURINOL 100 MG TABLET. PO SCH (08:38)
[2016-10-31] MEDS: FAMOTIDINE 20 MG TABLET. PO SCH (08:38)
[2016-10-31] MEDS: VANCOMYCIN 125 MG/2.5 ML ORAL SOLUTION. PO SCH ×2 (08:38→22:00)
[2016-10-31] MEDS: VITS A & D/LANOLIN TOPICAL OINTMENT 56GM TUBE. TP SCH ×3 (09:00→22:00)
--- NOTE | 2016-10-31 09:20 | PDOC ---
PROGRESS NOTES Chief Complaint Chief Complaint cc: syncopal episode, SVT, ESRD, Acinetobacter bacteremia ESRD, on HD anemia of chronic disease chronic diastolic heart failure DM type II GERD hyperlipidemia hypertension, with HYPOTENSION around HD hypothyroidism hepatitis, end stage cirrhosis with chronic ascites gout cardiomyopathy prior C. diff. History of Present Illness History of Present Illness non conversant again Known to me Hypotension frequently pt NOt ready for hospice DRained 9 L Wed/ S/p 50% gms albumin thereafter HD temp cath removed wednesday For permanent HD cath wednesday - CHanging caths bec of acinetobacter bacteremia After which if cleared by ID and Renal, back to SNU plan: need perm HD cath on Wednesday, PLt chronically low, may need transfusion for HD insertion poor prognosis, should be hospice, but pt and family refuse every time when he came here d5 for now for hypoglycemia and low po intake Vitals Vitals Vital Signs Date Time Temp Pulse Resp B/P (MAP) Pulse Ox O2 Delivery O2 Flow Rate FiO2 10/31/16 08:37 78 143/103 10/31/16 07:00 97.8 18 92 Nasal Cannula 2.0 97.8 Physical Exam General: Alert, No acute distress Heart: Normal S1, Other (tachycardia, on midorinine gtt. ) Lungs: Clear, Other (diminished inspiratory effort. negative chest retractions and/or accessory muscle use. ) Abdomen: Other Extremities: No clubbing, Other Skin: No rashes, Other (Left ankle ulcer. Right shoulder ulcer. dressing placed. ) Labs LABS Laboratory Tests Test 10/30/16 10:18 10/30/16 15:17 10/30/16 16:50 10/30/16 23:00 Glucose (Fingerstick) 125 mg/dL (70-99) 133 mg/dL (70-99) 81 mg/dL (70-99) Platelet Count 14 x10^3/uL (140-400) Prothrombin Time 20.3 SEC (11.7-14.0) Prothromb Time International Ratio 1.9 (0.8-1.1) Test 10/31/16 05:38 10/31/16 06:58 White Blood Count 7.6 x10^3/uL (4.0-11.0) Red Blood Count 2.79 x10^6/uL (4.30-5.70) Hemoglobin 8.1 g/dL (13.0-17.5) Hematocrit 24.1 % (39.0-53.0) Mean Corpuscular Volume 87 fL (79-100) Mean Corpuscular Hemoglobin 29 pg (25-35) Mean Corpuscular Hemoglobin Concent 34 g/dL (31-37) Red Cell Distribution Width 17.6 % (11.5-14.5) Platelet Count 29 x10^3/uL (140-400) Neutrophils (%) (Auto) 90 % (31-73) Lymphocytes (%) (Auto) 6 % (24-48) Monocytes (%) (Auto) 3 % (0-9) Eosinophils (%) (Auto) 0 % (0-3) Basophils (%) (Auto) 0 % (0-3) Neutrophils # (Auto) 6.8 x10^3uL (1.8-7.7) Lymphocytes # (Auto) 0.5 x10^3/uL (1.0-4.8) Monocytes # (Auto) 0.2 x10^3/uL (0.0-1.1) Eosinophils # (Auto) 0.0 x10^3/uL (0.0-0.7) Basophils # (Auto) 0.0 x10^3/uL (0.0-0.2) Sodium Level 137 mmol/L (136-145) Potassium Level 3.6 mmol/L (3.5-5.1) Chloride Level 102 mmol/L (98-107) Carbon Dioxide Level 29 mmol/L (21-32) Anion Gap 6 (6-14) Blood Urea Nitrogen 36 mg/dL (8-26) Creatinine 2.8 mg/dL (0.7-1.3) Estimated GFR (Cockcroft-Gault) 28.3 Glucose Level 100 mg/dL (70-99) Calcium Level 7.7 mg/dL (8.5-10.1) Phosphorus Level 2.3 mg/dL (2.6-4.7) Albumin 2.6 g/dL (3.4-5.0) Glucose (Fingerstick) 125 mg/dL (70-99) Review of Systems Review of Systems non conversant Assessment and Plan Assessmemt and Plan Problems Medical Problems: (1) Ascites Status: Acute (2) ESRD (end stage renal disease) on dialysis Status: Acute (3) SVT (supraventricular tachycardia) Status: Acute (4) Syncope Status: Acute Problems: Comment Review of Relevant I have reviewed the following items дмитрий (where applicable) has been applied. Labs Laboratory Tests Test 10/29/16 09:52 10/29/16 14:25 10/29/16 18:03 10/29/16 22:24 Glucose (Fingerstick) 124 mg/dL (70-99) 123 mg/dL (70-99) 81 mg/dL (70-99) 120 mg/dL (70-99) Test 10/30/16 06:00 10/30/16 06:53 10/30/16 07:27 10/30/16 10:18 Sodium Level 135 mmol/L (136-145) Potassium Level 4.6 mmol/L (3.5-5.1) Chloride Level 100 mmol/L (98-107) Carbon Dioxide Level 26 mmol/L (21-32) Anion Gap 9 (6-14) Blood Urea Nitrogen 61 mg/dL (8-26) Creatinine 4.7 mg/dL (0.7-1.3) Estimated GFR (Cockcroft-Gault) 15.6 Glucose Level 42 mg/dL (70-99) Calcium Level 7.9 mg/dL (8.5-10.1) Phosphorus Level 3.5 mg/dL (2.6-4.7) Magnesium Level 1.9 mg/dL (1.8-2.4) Albumin 2.4 g/dL (3.4-5.0) Glucose (Fingerstick) 27 mg/dL (70-99) 86 mg/dL (70-99) 125 mg/dL (70-99) Test 10/30/16 15:17 10/30/16 16:50 10/30/16 23:00 10/31/16 05:38 Glucose (Fingerstick) 133 mg/dL (70-99) 81 mg/dL (70-99) Platelet Count 14 x10^3/uL (140-400) 29 x10^3/uL (140-400) Prothrombin Time 20.3 SEC (11.7-14.0) Prothromb Time International Ratio 1.9 (0.8-1.1) White Blood Count 7.6 x10^3/uL (4.0-11.0) Red Blood Count 2.79 x10^6/uL (4.30-5.70) Hemoglobin 8.1 g/dL (13.0-17.5) Hematocrit 24.1 % (39.0-53.0) Mean Corpuscular Volume 87 fL (79-100) Mean Corpuscular Hemoglobin 29 pg (25-35) Mean Corpuscular Hemoglobin Concent 34 g/dL (31-37) Red Cell Distribution Width 17.6 % (11.5-14.5) Neutrophils (%) (Auto) 90 % (31-73) Lymphocytes (%) (Auto) 6 % (24-48) Monocytes (%) (Auto) 3 % (0-9) Eosinophils (%) (Auto) 0 % (0-3) Basophils (%) (Auto) 0 % (0-3) Neutrophils # (Auto) 6.8 x10^3uL (1.8-7.7) Lymphocytes # (Auto) 0.5 x10^3/uL (1.0-4.8) Monocytes # (Auto) 0.2 x10^3/uL (0.0-1.1) Eosinophils # (Auto) 0.0 x10^3/uL (0.0-0.7) Basophils # (Auto) 0.0 x10^3/uL (0.0-0.2) Sodium Level 137 mmol/L (136-145) Potassium Level 3.6 mmol/L (3.5-5.1) Chloride Level 102 mmol/L (98-107) Carbon Dioxide Level 29 mmol/L (21-32) Anion Gap 6 (6-14) Blood Urea Nitrogen 36 mg/dL (8-26) Creatinine 2.8 mg/dL (0.7-1.3) Estimated GFR (Cockcroft-Gault) 28.3 Glucose Level 100 mg/dL (70-99) Calcium Level 7.7 mg/dL (8.5-10.1) Phosphorus Level 2.3 mg/dL (2.6-4.7) Albumin 2.6 g/dL (3.4-5.0) Test 10/31/16 06:58 Glucose (Fingerstick) 125 mg/dL (70-99) Laboratory Tests Test 10/30/16 10:18 10/30/16 15:17 10/30/16 16:50 10/30/16 23:00 Glucose (Fingerstick) 125 mg/dL (70-99) 133 mg/dL (70-99) 81 mg/dL (70-99) Platelet Count 14 x10^3/uL (140-400) Prothrombin Time 20.3 SEC (11.7-14.0) Prothromb Time International Ratio 1.9 (0.8-1.1) Test 10/31/16 05:38 10/31/16 06:58 White Blood Count 7.6 x10^3/uL (4.0-11.0) Red Blood Count 2.79 x10^6/uL (4.30-5.70) Hemoglobin 8.1 g/dL (13.0-17.5) Hematocrit 24.1 % (39.0-53.0) Mean Corpuscular Volume 87 fL (79-100) Mean Corpuscular Hemoglobin 29 pg (25-35) Mean Corpuscular Hemoglobin Concent 34 g/dL (31-37) Red Cell Distribution Width 17.6 % (11.5-14.5) Platelet Count 29 x10^3/uL (140-400) Neutrophils (%) (Auto) 90 % (31-73) Lymphocytes (%) (Auto) 6 % (24-48) Monocytes (%) (Auto) 3 % (0-9) Eosinophils (%) (Auto) 0 % (0-3) Basophils (%) (Auto) 0 % (0-3) Neutrophils # (Auto) 6.8 x10^3uL (1.8-7.7) Lymphocytes # (Auto) 0.5 x10^3/uL (1.0-4.8) Monocytes # (Auto) 0.2 x10^3/uL (0.0-1.1) Eosinophils # (Auto) 0.0 x10^3/uL (0.0-0.7) Basophils # (Auto) 0.0 x10^3/uL (0.0-0.2) Sodium Level 137 mmol/L (136-145) Potassium Level 3.6 mmol/L (3.5-5.1) Chloride Level 102 mmol/L (98-107) Carbon Dioxide Level 29 mmol/L (21-32) Anion Gap 6 (6-14) Blood Urea Nitrogen 36 mg/dL (8-26) Creatinine 2.8 mg/dL (0.7-1.3) Estimated GFR (Cockcroft-Gault) 28.3 Glucose Level 100 mg/dL (70-99) Calcium Level 7.7 mg/dL (8.5-10.1) Phosphorus Level 2.3 mg/dL (2.6-4.7) Albumin 2.6 g/dL (3.4-5.0) Glucose (Fingerstick) 125 mg/dL (70-99) Microbiology 10/25/16 Blood Culture - Final, Complete NO GROWTH AFTER 5 DAYS 10/27/16 Gram Stain - Final, Complete 10/27/16 Gram Stain - Final, Complete Medications Current Medications Sodium Chloride 500 ml @ 250 mls/hr 1X ONCE IV Last administered on 16:24; Start 10/23/16 at 16:15; Stop 10/23/16 at 18:14; Status DC Sodium Chloride 500 ml @ 250 mls/hr 1X ONCE IV Last administered on 17:15; Start 10/23/16 at 17:15; Stop 10/23/16 at 19:14; Status DC Diltiazem HCl (Cardizem) 5 mg 1X ONCE IVP Last administered on 10/23/16 19:12 ; Start 10/23/16 at 18:45; Stop 10/23/16 at 18:49; Status DC Diltiazem HCl 125 mg/Dextrose 125 ml @ 0 mls/hr 1X ONCE IV ; Start 10/23/16 at 18:45; Stop 10/23/16 at 19:59; Status DC Digoxin (Lanoxin) 250 mcg 1X ONCE IV Last administered on 10/23/16 22:36; Start 10/23/16 at 20:00; Stop 10/23/16 at 20:01; Status DC Ondansetron HCl (Zofran) 4 mg PRN Q8HRS PRN IV NAUSEA/VOMITING; Start 10/23/16 at 20:15; Stop 10/23/16 at 22:04; Status DC Acetaminophen (Tylenol) 650 mg PRN Q4HRS PRN PO FEVER; Start 10/23/16 at 20:15 ; Stop 10/23/16 at 22:04; Status DC Acetaminophen (Tylenol) 325 mg PRN Q6HRS PRN PO MILD PAIN / TEMP; Start at 22:00; Stop 10/25/16 at 11:09; Status DC Acetaminophen/ Hydrocodone Bitart (Lortab 5/325) 1 tab PRN Q6HRS PRN PO MODERATE TO SEVERE PAIN; Start 10/23/16 at 22:00 Hydralazine HCl (Apresoline) 10 mg PRN Q4HRS PRN IVP ELEVATED BP, SEE COMMENTS ; Start 10/23/16 at 22:00 Ondansetron HCl (Zofran) 4 mg PRN Q8HRS PRN IV NAUSEA/VOMITING; Start 10/23/16 at 22:00 Albuterol Sulfate (Ventolin Neb Soln) 2.5 mg PRN Q4HRS PRN NEB SHORTNESS OF BREATH; Start 10/23/16 at 22:00 Sodium Chloride 500 ml @ 500 mls/hr 1X ONCE IV Last administered on 22:34; Start 10/23/16 at 22:30; Stop 10/23/16 at 23:29; Status DC Pneumococcal Polyvalent Vaccine (Do NOT chart on this placeholder) 1 each PRN DAILY PRN [facility] UNABLE TO RESPOND; Start 10/24/16 at 00:15; Status Cancel Dextrose (Dextrose 50%-Water Syringe) 12.5 gm PRN Q15MIN PRN IV SEE COMMENTS Last administered on 10/25/16 21:40; Start 10/24/16 at 01:15; Stop 10/29/16 at 15:08; Status DC Dextrose (Dextrose 50%-Water Syringe) 25 gm STK-MED ONCE IV ; Start 10/24/16 at 01:05; Stop 10/24/16 at 01:06; Status DC Metoprolol Tartrate (Lopressor) 12.5 mg BID PO Last administered on 10/25/16 21:06; Start 10/24/16 at 09:30; Stop 10/26/16 at 12:27; Status DC Acetaminophen (Tylenol) 650 mg PRN Q4HRS PRN PO PAIN; Start 10/24/16 at 10:45 Allopurinol (Zyloprim) 100 mg DAILY PO Last administered on 10/31/16 08:38; Start 10/24/16 at 11:00 Atorvastatin Calcium (Lipitor) 10 mg DAILY PO Last administered on 10/24/16 13 :52; Start 10/24/16 at 11:00; Stop 10/25/16 at 14:11; Status DC Calcium Acetate (Phoslo) 1,334 mg TIDWMEALS PO Last administered on 10/31/16 08 :38; Start 10/24/16 at 12:00 Diphenhydramine HCl (Benadryl) 25 mg PRN Q4HRS PRN PO ITCHING; Start 10/24/16 at 10:45 Famotidine (Pepcid) 20 mg DAILY PO Last administered on 10/31/16 08:38; Start 10/24/16 at 11:00 Fentanyl (Duragesic 50mcg/ Hr Patch) 1 patch Q72H TD Last administered on 11:00; Start 10/24/16 at 11:00 Ferrous Sulfate (Feosol) 325 mg DAILY PO Last administered on 10/31/16 08:37; Start 10/24/16 at 11:00 Folic Acid (Folic Acid) 1 mg DAILY PO Last administered on 10/31/16 08:37; Start 10/24/16 at 11:00 Levothyroxine Sodium (Synthroid) 75 mcg DAILYAC PO Last administered on 08:37; Start 10/25/16 at 07:30 Midodrine (Proamatine) 2.5 mg PRN TID PRN PO BLOOD PRESSURE Last administered on 10/30/16 20:16; Start 10/24/16 at 10:45 Midodrine (Proamatine) 5 mg [id number] PO Last administered on 10/31/16 08:37; Start 10/24/16 at 14:00 Sodium Bicarbonate (Sodium Bicarbonate) 650 mg BID PO Last administered on 09:31; Start 10/24/16 at 11:00; Stop 10/29/16 at 11:34; Status DC Calcium/Vitamin D (Oscal D 500mg/ 200uts) 1 tab TID PO Last administered on 10/31 08:38; Start 10/24/16 at 14:00 Non-Formulary Medication 500 mg QID PO ; Start 10/24/16 at 13:00; Stop 10/24/16 at 13:00; Status DC Glucagon (Glucagen) 1 mg 1X PRN IM HYPOGLYCEMIA; Start 10/24/16 at 11:00; Stop 10/27/16 at 14:47; Status DC Insulin Aspart (Novolog) 3 units TIDAC SQ ; Start 10/24/16 at 11:30; Stop at 11:36; Status DC Lactobacillus Acidophilus (Bacid, Lou-Bid) 2 tab DAILY PO Last administered on 10/31/16 08:36; Start 10/24/16 at 11:00 Oxycodone HCl (Roxicodone) 5 mg PRN Q4HRS PRN PO PAIN Last administered on 20:23; Start 10/24/16 at 11:15 Potassium Chloride (Klor-Con) 10 meq [id number] PO Last administered on 08:38; Start 10/24/16 at 11:00 Vancomycin HCl 125 mg Q6HRS PO Last administered on 10/26/16 06:14; Start 10/24 at 12:00; Stop 10/26/16 at 11:21; Status DC Piperacillin Sod/ Tazobactam Sod (Zosyn Per Pharmacy) 1 each PRN DAILY PRN [facility] SEE COMMENTS; Start 10/24/16 at 10:45; Stop 10/26/16 at 13:22; Status DC Vancomycin HCl 1.5 gm/Sodium Chloride 500 ml @ 250 mls/hr 1X ONCE IV ; Start 10/24/16 at 11:15; Stop 10/24/16 at 11:15; Status DC Piperacillin Sod/ Tazobactam Sod 2.25 gm/Sodium Chloride 50 ml @ 100 mls/hr Q6HRS IV Last administered on 10/26/16 12:39; Start 10/24/16 at 12:00; Stop 10/26/16 at 13:23; Status DC Insulin Aspart (Novolog) 3 units TIDAC SQ ; Start 10/24/16 at 11:35; Stop at 07:44; Status DC Heparin Sodium (Porcine) 5,000 unit Q8HRS SQ Last administered on 10/25/16 06: 09; Start 10/24/16 at 22:00; Stop 10/25/16 at 14:04; Status DC Amino Acids/ Glycerin/ Electrolytes 1,000 ml @ 40 mls/hr Q24H IV Last administered on 10/26/16 04:09; Start 10/24/16 at 17:15; Stop 10/26/16 at 10:57; Status DC Dextrose (Dextrose 50%-Water Syringe) 25 gm PRN Q1HR PRN IV SEE COMMENTS Last administered on 10/26/16 08:54; Start 10/24/16 at 17:15 Glucose (Insta-Glucose) 15 gm STK-MED ONCE .ROUTE ; Start 10/24/16 at 17:44; Stop 10/24/16 at 17:45; Status DC Glucose (Insta-Glucose) 15 gm PRN Q15MIN PRN PO LOW BLOOD SUGAR Last administered on 10/24/16 17:50; Start 10/24/16 at 18:00 Sodium Polystyrene Sulfonate (Kayexalate) 15 gm 1X ONCE PO ; Start 10/25/16 at 07:00; Stop 10/25/16 at 07:01; Status DC Magnesium Sulfate/ Dextrose 50 ml @ 25 mls/hr PRN DAILY PRN IV for Mag < 1.7 on am labs Last administered on 10/28/16 09:11; Start 10/25/16 at 07:30 Calcium Gluconate (Calcium Gluconate) 1,000 mg Q2H IVP Last administered on 17:11; Start 10/25/16 at 07:30; Stop 10/25/16 at 11:31; Status DC Albumin Human 100 ml @ 100 mls/hr 1X ONCE IV Last administered on 10/25/16 08:32; Start 10/25/16 at 08:30; Stop 10/25/16 at 09:29; Status DC Albumin Human 50 ml @ 50 mls/hr 1X ONCE IV Last administered on 10/25/16 08: 30; Start 10/25/16 at 08:30; Stop 10/25/16 at 09:29; Status DC Info (PHARMACY MONITORING -- do not chart) 1 each PRN DAILY PRN MC SEE COMMENTS ; Start 10/25/16 at 08:45 Info (PHARMACY MONITORING -- do not chart) 1 each PRN DAILY PRN MC SEE COMMENTS ; Start 10/25/16 at 08:45; Status Cancel Sodium Chloride 1,000 ml @ 1,000 mls/hr Q1H PRN IV hypotension; Start 10/25/16 at 08:54; Stop 10/25/16 at 14:53; Status DC Albumin Human 200 ml @ 200 mls/hr 1X PRN PRN IV Hypotension Last administered on 10/25/16 09:08; Start 10/25/16 at 09:00; Stop 10/25/16 at 14:59; Status DC Sodium Chloride (Normal Saline Flush) 10 ml 1X PRN PRN IV AP catheter pack; Start 10/25/16 at 09:00; Stop 10/26/16 at 08:59; Status DC Sodium Chloride (Normal Saline Flush) 10 ml 1X PRN PRN IV TERMINAL MAKEUP OPERATOR catheter pack; Start 10/25/16 at 09:00; Stop 10/26/16 at 08:59; Status DC Info (PHARMACY MONITORING -- do not chart) 1 each PRN DAILY PRN MC SEE COMMENTS ; Start 10/25/16 at 09:00; Status Cancel Info (PHARMACY MONITORING -- do not chart) 1 each PRN DAILY PRN MC SEE COMMENTS ; Start 10/25/16 at 09:00; Stop 10/26/16 at 11:18; Status DC Atorvastatin Calcium (Lipitor) 10 mg QHS PO Last administered on 10/30/16 20:17 ; Start 10/26/16 at 21:00 Dextrose (Dextrose 50%-Water Syringe) 25 gm 1X ONCE IV Last administered on 22:00; Start 10/25/16 at 22:15; Stop 10/25/16 at 22:16; Status DC Dextrose 1,000 ml @ 80 mls/hr [id number] IV Last administered on 10/28/16 05:19; Start 10/26/16 at 11:00; Stop 10/28/16 at 13:57; Status DC Vancomycin HCl 125 mg BID PO Last administered on 10/31/16 08:38; Start at 21:00 Ampicillin Sodium/ Sulbactam Sodium 1.5 gm/Sodium Chloride 50 ml @ 100 mls/hr Q6HRS IV Last administered on 10/31/16 05:49; Start 10/26/16 at 18:00 Sodium Chloride 1,000 ml @ 1,000 mls/hr Q1H PRN IV hypotension; Start 10/27/16 at 10:11; Stop 10/27/16 at 16:10; Status DC Albumin Human 200 ml @ 200 mls/hr 1X PRN PRN IV Hypotension Last administered on 10/27/16 11:18; Start 10/27/16 at 10:15; Stop 10/27/16 at 16:14; Status DC Diphenhydramine HCl (Benadryl) 25 mg 1X PRN PRN IV ITCHING; Start 10/27/16 at 10 :15; Stop 10/27/16 at 19:00; Status DC Diphenhydramine HCl (Benadryl) 25 mg 1X PRN PRN IV ITCHING; Start 10/27/16 at 10 :15; Stop 10/27/16 at 19:00; Status DC Sodium Chloride 1,000 ml @ 400 mls/hr Q2H30M PRN IV PATENCY; Start 10/27/16 at 10:11; Stop 10/27/16 at 22:10; Status DC Info (PHARMACY MONITORING -- do not chart) 1 each PRN DAILY PRN MC SEE COMMENTS ; Start 10/27/16 at 10:15; Status Cancel Lidocaine/ Epinephrine (Xylocaine 1%-Epi 1:100,000) 20 ml STK-MED ONCE .ROUTE ; Start 10/27/16 at 14:41; Stop 10/27/16 at 14:42; Status DC Glucagon (Glucagen) 1 mg 1X PRN PRN IM HYPOGLYCEMIA; Start 10/27/16 at 14:47 Lidocaine/Sodium Bicarbonate (Buffered Lidocaine 1%) 4 ml 1X ONCE IJ ; Start at 15:30; Stop 10/27/16 at 15:59; Status DC Albumin Human 100 ml @ 100 mls/hr 1X ONCE IV Last administered on 10/27/16 15 :57; Start 10/27/16 at 16:00; Stop 10/27/16 at 16:59; Status DC Lidocaine/ Epinephrine (Xylocaine 1%-Epi 1:100,000) 7 ml 1X ONCE INJ ; Start at 16:00; Stop 10/27/16 at 16:01; Status DC Calcium Chloride 2000 mg/Sodium Chloride 120 ml @ 240 mls/hr 1X ONCE IV Last administered on 10/28/16 12:45; Start 10/28/16 at 11:45; Stop 10/28/16 at 12:14; Status DC Darbepoetin Aaron (Aranesp) 60 mcg [id number] SQ Last administered on 10/28/16 20: 46; Start 10/28/16 at 21:00 Vitamin A/Vitamin D (Vitamin A & D Ointment) 1 vanna TID TP Last administered on 10/30/16 20:15; Start 10/28/16 at 21:00 Tobramycin Sulfate 300 mg/ Sodium Chloride 107.5 ml @ 107.5 mls/ hr 1X ONCE IV Last administered on 10/29/16 13:07; Start 10/29/16 at 10:30; Stop 10/29/16 at 11:29; Status DC Albumin Human 100 ml @ 100 mls/hr Q1H IV Last administered on 10/29/16 16:00; Start 10/29/16 at 12:00; Stop 10/29/16 at 13:59; Status DC Dextrose 1,000 ml @ 50 mls/hr Q20H IV Last administered on 10/31/16 05:56; Start 10/30/16 at 11:15 Heparin Sodium (Porcine) (Heparin Sodium) 10,000 unit STK-MED ONCE .ROUTE ; Start 10/30/16 at 11:37; Stop 10/30/16 at 11:38; Status DC Lidocaine/Sodium Bicarbonate (Buffered Lidocaine 1%) 20 ml STK-MED ONCE IJ ; Start 10/30/16 at 11:38; Stop 10/30/16 at 11:39; Status DC Heparin Sodium/ Sodium Chloride 500 ml @ As Directed STK-MED ONCE .ROUTE ; Start 10/30/16 at 11:38; Stop 10/30/16 at 11:39; Status DC Lidocaine/Sodium Bicarbonate (Buffered Lidocaine 1%) 3 ml 1X ONCE IJ Last administered on 10/30/16 12:00; Start 10/30/16 at 12:00; Stop 10/30/16 at 12:06; Status DC Heparin Sodium (Porcine) (Heparin Sodium) 2,400 unit 1X ONCE INT CAT Last administered on 10/30/16 12:00; Start 10/30/16 at 12:00; Stop 10/30/16 at 12:06; Status DC Heparin Sodium/ Sodium Chloride 60 unit 1X ONCE IV Last administered on 12:00; Start 10/30/16 at 12:00; Stop 10/30/16 at 12:06; Status DC Iohexol (Omnipaque 300 Mg/ml) 50 ml STK-MED ONCE .ROUTE ; Start 10/30/16 at 12:19 ; Stop 10/30/16 at 12:20; Status DC Iohexol (Omnipaque 300 Mg/ml) 50 ml 1X ONCE IJ Last administered on 10/30/16 12:30; Start 10/30/16 at 12:30; Stop 10/30/16 at 12:31; Status DC Info (Do NOT chart on this entry -- for MONITORING) 1 each PRN DAILY PRN MC SEE COMMENTS; Start 10/30/16 at 12:30; Stop 11/01/16 at 12:29 Sodium Chloride 1,000 ml @ 1,000 mls/hr Q1H PRN IV hypotension; Start 10/30/16 at 15:50; Stop 10/30/16 at 21:49; Status DC Albumin Human 200 ml @ 200 mls/hr 1X PRN PRN IV Hypotension Last administered on 10/30/16 19:30; Start 10/30/16 at 16:00; Stop 10/30/16 at 21:59; Status DC Diphenhydramine HCl (Benadryl) 25 mg 1X PRN PRN IV ITCHING; Start 10/30/16 at 16 :00; Stop 10/31/16 at 15:59 Diphenhydramine HCl (Benadryl) 25 mg 1X PRN PRN IV ITCHING; Start 10/30/16 at 16 :00; Stop 10/31/16 at 15:59 Sodium Chloride (Normal Saline Flush) 10 ml 1X PRN PRN IV AP catheter pack; Start 10/30/16 at 16:00; Stop 10/31/16 at 15:59 Sodium Chloride (Normal Saline Flush) 10 ml 1X PRN PRN IV TERMINAL MAKEUP OPERATOR catheter pack; Start 10/30/16 at 16:00; Stop 10/31/16 at 15:59 Info (PHARMACY MONITORING -- do not chart) 1 each PRN DAILY PRN MC SEE COMMENTS ; Start 10/30/16 at 16:00 Gelatin (Gelfoam Size 12-7mm) 1 each 1X STAT TP Last administered on 5/5/ 17at 17:22; Start 10/30/16 at 17:22; Stop 10/30/16 at 17:25; Status DC Gelatin (Gelfoam Size 100) 1 each STK-MED ONCE .ROUTE ; Start 10/30/16 at 17:29 ; Stop 10/30/16 at 17:30; Status DC Active Scripts Active Midodrine Hcl 2.5 Mg Tablet 2.5 Mg PO PRN TID PRN Reported Gluco Burst (Dextrose) 37.5 Gm Gel..gram. 37.5 Gm PO PRN Glucagon Emergency Kit (Glucagon,Human Recombinant) 1 Mg Kit 1 Mg IM PRN Ferrous Sulfate 325 Mg Tablet 1 Tab PO DAILY DURAGESIC 50mcg/hr (Fentanyl) 1 Each Patch.td72 1 Patch TD Q72H Benadryl (Diphenhydramine Hcl) 25 Mg Capsule 25 Mg PO PRN Q4HRS PRN Midodrine Hcl 5 Mg Tablet 5 Mg PO BID Sodium Bicarbonate 650 Mg Tablet 650 Mg PO BID Potassium Chloride 10 Meq Tablet.er 10 Meq PO DAILY Keflex (Cephalexin) 500 Mg Capsule 500 Mg PO QID Humalog Kwikpen (Insulin Lispro) 200 Unit/1 Ml Insuln.pen 3 Unit SQ TIDAC Famotidine 20 Mg Tablet 20 Mg PO DAILY Oxycodone Hcl 15 Mg Tablet 1 Tab PO PRN Q4HRS PRN Phoslo (Calcium Acetate) 667 Mg Capsule 2 Cap PO TIDWMEALS Allopurinol 100 Mg Tablet 1 Tab PO DAILY Oyster Shell Calcium-Vit D Tab (Calcium Carbonate/Vitamin D2) 1 Each Tablet 1 Each PO TID Acidophilus Lactobacillus (Lactobacillus Acidophilus) 1 Each Capsule 1 Each PO DAILY Acetaminophen 325 Mg Tablet 650 Mg PO PRN Q4HRS PRN Atorvastatin Calcium 10 Mg Tablet 1 Tab PO DAILY Folic Acid 1 Mg Tablet 1 Mg PO DAILY Levothyroxine Sodium 25 Mcg Tablet 75 Mcg PO DAILYAC Vitals/I & O Vital Sign - Last 24 Hours 10/30/16 10/30/16 10/30/16 10/30/16 10:15 14:00 14:45 20:16 Temp 96.3 96.1 96.3 96.1 Pulse 83 83 69 136 Resp 20 18 B/P (MAP) 141/97 (112) 141/97 130/93 (105) 78/57 Pulse Ox 96 97 O2 Delivery Room Air Room Air 10/30/16 10/31/16 10/31/16 10/31/16 20:23 01:22 01:40 03:00 Temp 97.2 97.1 97.2 97.1 Pulse 81 77 72 Resp 16 16 18 B/P (MAP) 110/68 106/72 106/68 (81) Pulse Ox 97 O2 Delivery Nasal Cannula Room Air O2 Flow Rate 2.0 10/31/16 10/31/16 07:00 08:37 Temp 97.8 97.8 Pulse 78 78 Resp 18 B/P (MAP) 143/103 (116) 143/103 Pulse Ox 92 O2 Delivery Nasal Cannula O2 Flow Rate 2.0 Intake and Output 10/30/16 10/30/16 10/31/16 14:59 22:59 06:59 Intake Total 120 ml 120 ml 1000 ml Output Total 0 ml 0 ml Balance 120 ml 120 ml 1000 ml Nutrition Consultation Dietary Evaluation: Recommendations by RD: Increase Calorie Intake, Protein supplementation Comments: Rec. continue novasource renal TID - 475kcal and 21.6g protein per serving Rec. nephrovite and 500mg vit c q day to aid wound healing Expected Outcomes/Goals: to meet >75% est nutr needs Malnutrition Findings: Food and Nutrition Intake (Mod: <75% est energy req 7days Body Fat Depletion (Non Severe: Mod to Severe Weight Status: Appropriate KARAN FERGUSON MD October 31, 2016 09:20
--- NOTE | 2016-10-31 10:22 | PDOC ---
SUBJECTIVE ROS ESRD Issues with Bleeding last Pm noted. Now Controlled after 6pack plts and pressure dressing unabel to reliably obtain ROS OBJECTIVE Vital Signs Vital Signs Date Time Temp Pulse Resp B/P (MAP) Pulse Ox O2 Delivery O2 Flow Rate FiO2 10/31/16 08:37 78 143/103 10/31/16 08:00 Nasal Cannula 2.0 10/31/16 07:00 97.8 18 92 97.8 I & 0 Intake and Output 10/31/16 06:59 Intake Total 1240 ml Output Total 0 ml Balance 1240 ml Intake Oral 240 ml IV Total 700 ml Blood Product IV Normal Saline Flush 300 ml Output Urine Total 0 ml # Bowel Movements 2 PHYSICAL EXAM Physical Exam GEN: Awake, Oriented x ? (does not answer) , In no distress; cachectic and emaciated; more assertive today though EYES: Vision Unchanged, Conjunctiva Normal EN: No EN Drainage, Mucous Membranes dry NECK: min JVD, + JVP, Supple, no Thyromegaly CVS: S1S2, + Murmur, No Gallop, No Rub,+1 Edema RESP: no Rales, no Rhonchi,no Acc. Muscle Use GI: BS + ve, NO Bruit, Non Tender, min Distended : no CVA tenderness, no Suprapubic Tenderness DIAGNOSIS/ASSESSMENT Assessment & Plan ESRD: Current fluid and E-lyte status does not necessitate emergent need for dialysis. Will re-evaluate for dialysis in the am and continue on MWF schedule. RVR on HD - despite no Fluid removal. This does affect his rate of reaccumulation of Ascites. Defer to Cardiology ANEMIA; started Aranesp as ordered ; Transfuse with next HD as needed if hgb drops < 7 HypoTN: has been a chronic issue, suspect asso with liver failure. ? Improving now that Bacteremia is being treated. Bacteremia: HD Cath has been removed. Temp Cath v/s P/cath Wednesday if OK with ID - Will need plts prior to procedure Cachecxia / malnutrition with FTT - Poor near term prognosis Low Plts - hence no P/Cath today. May need Plt infusion on Wednesday to facilitate P/Cath on Wednesday COMMENT/RELEVANT DATA Meds Current Medications Medications (Trade) Dose Ordered Sig/Madi Start Time Stop Time Status Last Admin Dose Admin Acetaminophen (Tylenol) 650 mg PRN Q4HRS PRN 10/24/16 10:45 Acetaminophen/ Hydrocodone Bitart (Lortab 5/325) 1 tab PRN Q6HRS PRN 10/23/16 22:00 Albumin Human 200 ml @ 200 mls/hr 1X PRN PRN 10/30/16 16:00 10/30/16 21:59 DC 10/30/16 19:30 200 MLS/HR Albuterol Sulfate (Ventolin Neb Soln) 2.5 mg PRN Q4HRS PRN 10/23/16 22:00 Allopurinol (Zyloprim) 100 mg DAILY 10/24/16 11:00 10/31/16 08:38 100 MG Amino Acids/ Glycerin/ Electrolytes 1,000 ml @ 40 mls/hr Q24H 10/24/16 17:15 10/26/16 10:57 DC 10/26/16 04:09 40 MLS/HR Ampicillin Sodium/ Sulbactam Sodium 1.5 gm/Sodium Chloride 50 ml @ 100 mls/hr Q6HRS 10/26/16 18:00 10/31/16 05:49 100 MLS/HR Atorvastatin Calcium (Lipitor) 10 mg QHS 10/26/16 21:00 10/30/16 20:17 10 MG Calcium Acetate (Phoslo) 1,334 mg TIDWMEALS 10/24/16 12:00 10/31/16 08:38 1,334 MG Calcium Chloride 2000 mg/Sodium Chloride 120 ml @ 240 mls/hr 1X ONCE 10/28/16 11:45 10/28/16 12:14 DC 10/28/16 12:45 240 MLS/HR Calcium Gluconate (Calcium Gluconate) 1,000 mg Q2H 10/25/16 07:30 10/25/16 11:31 DC 10/25/16 17:11 1,000 MG Calcium/Vitamin D (Oscal D 500mg/ 200uts) 1 tab TID 10/24/16 14:00 10/31/16 08:38 1 TAB Darbepoetin Aaron (Aranesp) 60 mcg WEEKLYHS 10/28/16 21:00 10/28/16 20:46 60 MCG Dextrose 1,000 ml @ 50 mls/hr Q20H 10/30/16 11:15 10/31/16 05:56 50 MLS/HR Dextrose (Dextrose 50%-Water Syringe) 25 gm 1X ONCE 10/25/16 22:15 10/25/16 22:16 DC 10/25/16 22:00 25 GM Digoxin (Lanoxin) 250 mcg 1X ONCE 10/23/16 20:00 10/23/16 20:01 DC 10/23/16 22:36 250 MCG Diltiazem HCl (Cardizem) 5 mg 1X ONCE 10/23/16 18:45 10/23/16 18:49 DC 10/23/16 19:12 5 MG Diltiazem HCl 125 mg/Dextrose 125 ml @ 0 mls/hr 1X ONCE 10/23/16 18:45 10/23/16 19:59 DC Diphenhydramine HCl (Benadryl) 25 mg 1X PRN PRN 10/30/16 16:00 10/31/16 15:59 Famotidine (Pepcid) 20 mg DAILY 10/24/16 11:00 10/31/16 08:38 20 MG Fentanyl (Duragesic 50mcg/ Hr Patch) 1 patch Q72H 10/24/16 11:00 10/30/16 11:00 1 PATCH Ferrous Sulfate (Feosol) 325 mg DAILY 10/24/16 11:00 10/31/16 08:37 325 MG Folic Acid (Folic Acid) 1 mg DAILY 10/24/16 11:00 10/31/16 08:37 1 MG Gelatin (Gelfoam Size 12-7mm) 1 each 1X STAT 10/30/16 17:22 10/30/16 17:25 DC 10/30/16 17:22 1 EACH Gelatin (Gelfoam Size 100) 1 each STK-MED ONCE 10/30/16 17:29 10/30/16 17:30 DC Glucagon (Glucagen) 1 mg 1X PRN PRN 10/27/16 14:47 Glucose (Insta-Glucose) 15 gm PRN Q15MIN PRN 10/24/16 18:00 10/24/16 17:50 15 GM Heparin Sodium (Porcine) (Heparin Sodium) 2,400 unit 1X ONCE 10/30/16 12:00 10/30/16 12:06 DC 10/30/16 12:00 2,400 UNIT Heparin Sodium/ Sodium Chloride 60 unit 1X ONCE 10/30/16 12:00 10/30/16 12:06 DC 10/30/16 12:00 60 UNIT Hydralazine HCl (Apresoline) 10 mg PRN Q4HRS PRN 10/23/16 22:00 Info (Do NOT chart on this entry -- for MONITORING) 1 each PRN DAILY PRN 10/30/16 12:30 11/01/16 12:29 Info (PHARMACY MONITORING -- do not chart) 1 each PRN DAILY PRN 10/30/16 16:00 Insulin Aspart (Novolog) 3 units TIDAC 10/24/16 11:35 10/26/16 07:44 DC Iohexol (Omnipaque 300 Mg/ml) 50 ml 1X ONCE 10/30/16 12:30 10/30/16 12:31 DC 10/30/16 12:30 50 ML Lactobacillus Acidophilus (Bacid, Lou-Bid) 2 tab DAILY 10/24/16 11:00 10/31/16 08:36 2 TAB Levothyroxine Sodium (Synthroid) 75 mcg DAILYAC 10/25/16 07:30 10/31/16 08:37 75 MCG Lidocaine/ Epinephrine (Xylocaine 1%-Epi 1:100,000) 7 ml 1X ONCE 10/27/16 16:00 10/27/16 16:01 DC Lidocaine/Sodium Bicarbonate (Buffered Lidocaine 1%) 3 ml 1X ONCE 10/30/16 12:00 10/30/16 12:06 DC 10/30/16 12:00 3 ML Magnesium Sulfate/ Dextrose 50 ml @ 25 mls/hr PRN DAILY PRN 10/25/16 07:30 10/28/16 09:11 25 MLS/HR Metoprolol Tartrate (Lopressor) 12.5 mg BID 10/24/16 09:30 10/26/16 12:27 DC 10/25/16 21:06 12.5 MG Midodrine (Proamatine) 5 mg [id number] 10/24/16 14:00 10/31/16 08:37 5 MG Non-Formulary Medication 500 mg QID 10/24/16 13:00 10/24/16 13:00 DC Ondansetron HCl (Zofran) 4 mg PRN Q8HRS PRN 10/23/16 22:00 Oxycodone HCl (Roxicodone) 5 mg PRN Q4HRS PRN 10/24/16 11:15 10/29/16 20:23 5 MG Piperacillin Sod/ Tazobactam Sod (Zosyn Per Pharmacy) 1 each PRN DAILY PRN 10/24/16 10:45 10/26/16 13:22 DC Piperacillin Sod/ Tazobactam Sod 2.25 gm/Sodium Chloride 50 ml @ 100 mls/hr Q6HRS 10/24/16 12:00 10/26/16 13:23 DC 10/26/16 12:39 100 MLS/HR Pneumococcal Polyvalent Vaccine (Do NOT chart on this placeholder) 1 each PRN DAILY PRN 10/24/16 00:15 Cancel Potassium Chloride (Klor-Con) 10 meq [id number] 10/24/16 11:00 10/31/16 08:38 10 MEQ Sodium Polystyrene Sulfonate (Kayexalate) 15 gm 1X ONCE 10/25/16 07:00 10/25/16 07:01 DC Sodium Bicarbonate (Sodium Bicarbonate) 650 mg BID 10/24/16 11:00 10/29/16 11:34 DC 10/29/16 09:31 650 MG Sodium Chloride (Normal Saline Flush) 10 ml 1X PRN PRN 10/30/16 16:00 10/31/16 15:59 Tobramycin Sulfate 300 mg/ Sodium Chloride 107.5 ml @ 107.5 mls/ hr 1X ONCE 10/29/16 10:30 10/29/16 11:29 DC 10/29/16 13:07 107.5 MLS/HR Vancomycin HCl 125 mg BID 10/26/16 21:00 10/31/16 08:38 125 MG Vancomycin HCl 1.5 gm/Sodium Chloride 500 ml @ 250 mls/hr 1X ONCE 10/24/16 11:15 10/24/16 11:15 DC Vitamin A/Vitamin D (Vitamin A & D Ointment) 1 vanna TID 10/28/16 21:00 10/30/16 20:15 1 VANNA Lab Laboratory Tests Test 10/30/16 10:18 10/30/16 15:17 10/30/16 16:50 10/30/16 23:00 Glucose (Fingerstick) 125 mg/dL (70-99) 133 mg/dL (70-99) 81 mg/dL (70-99) Platelet Count 14 x10^3/uL (140-400) Prothrombin Time 20.3 SEC (11.7-14.0) Prothromb Time International Ratio 1.9 (0.8-1.1) Test 10/31/16 05:38 10/31/16 06:58 White Blood Count 7.6 x10^3/uL (4.0-11.0) Red Blood Count 2.79 x10^6/uL (4.30-5.70) Hemoglobin 8.1 g/dL (13.0-17.5) Hematocrit 24.1 % (39.0-53.0) Mean Corpuscular Volume 87 fL (79-100) Mean Corpuscular Hemoglobin 29 pg (25-35) Mean Corpuscular Hemoglobin Concent 34 g/dL (31-37) Red Cell Distribution Width 17.6 % (11.5-14.5) Platelet Count 29 x10^3/uL (140-400) Neutrophils (%) (Auto) 90 % (31-73) Lymphocytes (%) (Auto) 6 % (24-48) Monocytes (%) (Auto) 3 % (0-9) Eosinophils (%) (Auto) 0 % (0-3) Basophils (%) (Auto) 0 % (0-3) Neutrophils # (Auto) 6.8 x10^3uL (1.8-7.7) Lymphocytes # (Auto) 0.5 x10^3/uL (1.0-4.8) Monocytes # (Auto) 0.2 x10^3/uL (0.0-1.1) Eosinophils # (Auto) 0.0 x10^3/uL (0.0-0.7) Basophils # (Auto) 0.0 x10^3/uL (0.0-0.2) Sodium Level 137 mmol/L (136-145) Potassium Level 3.6 mmol/L (3.5-5.1) Chloride Level 102 mmol/L (98-107) Carbon Dioxide Level 29 mmol/L (21-32) Anion Gap 6 (6-14) Blood Urea Nitrogen 36 mg/dL (8-26) Creatinine 2.8 mg/dL (0.7-1.3) Estimated GFR (Cockcroft-Gault) 28.3 Glucose Level 100 mg/dL (70-99) Calcium Level 7.7 mg/dL (8.5-10.1) Phosphorus Level 2.3 mg/dL (2.6-4.7) Albumin 2.6 g/dL (3.4-5.0) Glucose (Fingerstick) 125 mg/dL (70-99) CELINA CLIFTON MD October 31, 2016 10:22
--- NOTE | 2016-10-31 11:48 | PDOC ---
Infectious Disease Note Subjective Subjective s/p platelet infusion c/o "gas" and mild abdominal discomfort - better now some diarrhea ROS ROS GEN: Denies fevers, chills, sweats HEENT: Denies sore throat CV: Denies chest pain RESP: Denies shortness of air, cough GI: Denies n/v Vital Sign Vital Signs Vital Signs Date Time Temp Pulse Resp B/P (MAP) Pulse Ox O2 Delivery O2 Flow Rate FiO2 10/31/16 10:49 97.7 80 18 108/78 (88) 90 Nasal Cannula 2.0 97.7 Physical Exam PHYSICAL EXAM GENERAL: Propped up in bed, coop, NAD HEENT: PERRL, OC/OP pink LUNGS: Clear HEART: S1S2, no gallop, no murmur ABD: Distended, BS present, soft, NT light palpation EXT: BLE edema 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 (10/30) LUE-PICC/bandaged Labs Lab Laboratory Tests Test 10/30/16 15:17 10/30/16 16:50 10/30/16 23:00 10/31/16 05:38 Glucose (Fingerstick) 133 mg/dL (70-99) 81 mg/dL (70-99) Platelet Count 14 x10^3/uL (140-400) 29 x10^3/uL (140-400) Prothrombin Time 20.3 SEC (11.7-14.0) Prothromb Time International Ratio 1.9 (0.8-1.1) White Blood Count 7.6 x10^3/uL (4.0-11.0) Red Blood Count 2.79 x10^6/uL (4.30-5.70) Hemoglobin 8.1 g/dL (13.0-17.5) Hematocrit 24.1 % (39.0-53.0) Mean Corpuscular Volume 87 fL (79-100) Mean Corpuscular Hemoglobin 29 pg (25-35) Mean Corpuscular Hemoglobin Concent 34 g/dL (31-37) Red Cell Distribution Width 17.6 % (11.5-14.5) Neutrophils (%) (Auto) 90 % (31-73) Lymphocytes (%) (Auto) 6 % (24-48) Monocytes (%) (Auto) 3 % (0-9) Eosinophils (%) (Auto) 0 % (0-3) Basophils (%) (Auto) 0 % (0-3) Neutrophils # (Auto) 6.8 x10^3uL (1.8-7.7) Lymphocytes # (Auto) 0.5 x10^3/uL (1.0-4.8) Monocytes # (Auto) 0.2 x10^3/uL (0.0-1.1) Eosinophils # (Auto) 0.0 x10^3/uL (0.0-0.7) Basophils # (Auto) 0.0 x10^3/uL (0.0-0.2) Sodium Level 137 mmol/L (136-145) Potassium Level 3.6 mmol/L (3.5-5.1) Chloride Level 102 mmol/L (98-107) Carbon Dioxide Level 29 mmol/L (21-32) Anion Gap 6 (6-14) Blood Urea Nitrogen 36 mg/dL (8-26) Creatinine 2.8 mg/dL (0.7-1.3) Estimated GFR (Cockcroft-Gault) 28.3 Glucose Level 100 mg/dL (70-99) Calcium Level 7.7 mg/dL (8.5-10.1) Phosphorus Level 2.3 mg/dL (2.6-4.7) Albumin 2.6 g/dL (3.4-5.0) Test 10/31/16 06:58 10/31/16 10:20 Glucose (Fingerstick) 125 mg/dL (70-99) 177 mg/dL (70-99) Objective Assessment Sepsis POA. Acinetobacter bacteremia (10/23) -RIJ tunneled HDC removed, 10/27. culture cath tip NGTD -Placement temp HDC (10/30. Bandemia H/o recent c. diff CKD on HD Cirrhosis of liver w/ refractory ascites DM with hypoglycemia Debility SVT Thrombocytopenia Plan Plan of Care Continue Unasyn for now. can d/c on po cipro and IV tobramycin last dose tobra 10/29. Po vancomycin BID for prophylaxis Monitor labs Supportive care Overall poor prognosis Attending Co-Sign Attending Co-Sign The patient was seen and interviewed as well as examined at the bedside. The chart was reviewed. The case was discussed. Agree with the plan of care. ADITYA NORTON APRN October 31, 2016 11:48 LEXA MAYFIELD MD October 31, 2016 13:39
[2016-10-31] MEDS: ATORVASTATIN CALCIUM 10 MG TABLET. PO SCH (22:00)
[2016-11-01] VITALS (14 sets, daily range): BP systolic 89–162; BP diastolic 63–111
[2016-11-01] MEDS: AMPICILLIN/SULBACTAM 1.5 GM in IV NORMAL SALINE 50ML 50 ML IV SCH ×5 (00:25→23:39)
[2016-11-01 06:16] LABS: BASO % 0 % (0-3); EOS % 0 % (0-3); HEMATOCRIT 23.1 % (39.0-53.0); HEMOGLOBIN 7.8 g/dL (13.0-17.5); LYMPH # 0.4 x10^3/uL (1.0-4.8); LYMPH % 4 % (24-48); MEAN CORPUSCULAR HEMOGLOBIN 29 pg (25-35); MEAN CORPUSCULAR HGB CONC 34 g/dL (31-37); MEAN CORPUSCULAR VOLUME 87 fL (79-100); MONO % 2 % (0-9); NEUT % 94 % (31-73); RED BLOOD COUNT 2.67 x10^6/uL (4.30-5.70); RED CELL DISTRIBUTION WIDTH 17.1 % (11.5-14.5); WHITE BLOOD COUNT 9.8 x10^3/uL (4.0-11.0)
[2016-11-01 06:20] LABS: PLATELET COUNT 13 x10^3/uL (140-400)
[2016-11-01 06:27] LABS: INR 2.2 (0.8-1.1); PROTHROMBIN TIME PATIENT 22.7 SEC (11.7-14.0)
[2016-11-01 06:34] LABS: ALBUMIN 2.3 g/dL (3.4-5.0); CALCIUM 7.5 mg/dL (8.5-10.1); CREATININE 3.3 mg/dL (0.7-1.3); GFR 23.4; PHOSPHORUS 2.6 mg/dL (2.6-4.7); POTASSIUM 3.8 mmol/L (3.5-5.1)
[2016-11-01] MEDS: LACTOBACILLUS ACIDOPH & BULGAR 1 TABLET. PO SCH (08:43)
[2016-11-01] MEDS: LEVOTHYROXINE 25 MCG TABLET. PO SCH (08:43)
[2016-11-01] MEDS: ALLOPURINOL 100 MG TABLET. PO SCH (08:43)
[2016-11-01] MEDS: CALCIUM ACETATE 667 MG CAPSULE PO SCH ×3 (08:43→17:38)
[2016-11-01] MEDS: FERROUS SULFATE 325 MG TABLET. PO SCH (08:44)
[2016-11-01] MEDS: FOLIC ACID 1 MG TABLET. PO SCH (08:44)
[2016-11-01] MEDS: CALCIUM CARB/VIT D3 500/200 TABLET. PO SCH ×3 (08:44→20:08)
[2016-11-01] MEDS: FAMOTIDINE 20 MG TABLET. PO SCH (08:44)
[2016-11-01] MEDS: POTASSIUM CHLORIDE 10 MEQ TABLET.ER. PO SCH (08:44)
[2016-11-01] MEDS: VANCOMYCIN 125 MG/2.5 ML ORAL SOLUTION. PO SCH ×2 (08:44→20:08)
[2016-11-01] MEDS: MIDODRINE 5 MG TABLET PO SCH ×2 (08:44→13:43)
[2016-11-01] MEDS: VITS A & D/LANOLIN TOPICAL OINTMENT 56GM TUBE. TP SCH ×3 (09:00→20:08)
[2016-11-01] MEDS ORDERED: PHYTONADIONE (VIT K1) 5 MG TABLET PO ONE (09:45)
--- NOTE | 2016-11-01 10:20 | PDOC ---
Infectious Disease Note Subjective Subjective still bleeding at HDC site. Less abdominal discomfort and gas ROS ROS GEN: Denies fevers, chills, sweats CV: Denies chest pain RESP: Denies shortness of air, cough GI: Denies n/v Vital Sign Vital Signs Vital Signs Date Time Temp Pulse Resp B/P (MAP) Pulse Ox O2 Delivery O2 Flow Rate FiO2 11/01/16 10:07 97.8 66 115/65 97.8 11/01/16 08:00 Nasal Cannula 2.0 11/01/16 07:00 18 99 Physical Exam PHYSICAL EXAM GENERAL: Propped up in bed, coop, NAD HEENT: OC/OP pink LUNGS: Clear HEART: S1S2, no gallop, no murmur ABD: Distended, BS present, soft, NT light palpation EXT: BLE edema AUTISM SPECIALIST: Alert, more conversant, calm, SKIN: No rash Temp HDC/pressure dressing. (10/30). area ecchymosis extending down right-side chest LUE-PICC/bandaged Labs Lab Laboratory Tests Test 10/31/16 10:20 10/31/16 16:03 10/31/16 20:45 11/01/16 05:30 Glucose (Fingerstick) 177 mg/dL (70-99) 190 mg/dL (70-99) 216 mg/dL (70-99) White Blood Count 9.8 x10^3/uL (4.0-11.0) Red Blood Count 2.67 x10^6/uL (4.30-5.70) Hemoglobin 7.8 g/dL (13.0-17.5) Hematocrit 23.1 % (39.0-53.0) Mean Corpuscular Volume 87 fL (79-100) Mean Corpuscular Hemoglobin 29 pg (25-35) Mean Corpuscular Hemoglobin Concent 34 g/dL (31-37) Red Cell Distribution Width 17.1 % (11.5-14.5) Platelet Count 13 x10^3/uL (140-400) Neutrophils (%) (Auto) 94 % (31-73) Lymphocytes (%) (Auto) 4 % (24-48) Monocytes (%) (Auto) 2 % (0-9) Eosinophils (%) (Auto) 0 % (0-3) Basophils (%) (Auto) 0 % (0-3) Neutrophils # (Auto) 9.2 x10^3uL (1.8-7.7) Lymphocytes # (Auto) 0.4 x10^3/uL (1.0-4.8) Monocytes # (Auto) 0.2 x10^3/uL (0.0-1.1) Eosinophils # (Auto) 0.0 x10^3/uL (0.0-0.7) Basophils # (Auto) 0.0 x10^3/uL (0.0-0.2) Prothrombin Time 22.7 SEC (11.7-14.0) Prothromb Time International Ratio 2.2 (0.8-1.1) Sodium Level 137 mmol/L (136-145) Potassium Level 3.8 mmol/L (3.5-5.1) Chloride Level 102 mmol/L (98-107) Carbon Dioxide Level 29 mmol/L (21-32) Anion Gap 6 (6-14) Blood Urea Nitrogen 46 mg/dL (8-26) Creatinine 3.3 mg/dL (0.7-1.3) Estimated GFR (Cockcroft-Gault) 23.4 Glucose Level 127 mg/dL (70-99) Calcium Level 7.5 mg/dL (8.5-10.1) Phosphorus Level 2.6 mg/dL (2.6-4.7) Albumin 2.3 g/dL (3.4-5.0) Test 11/01/16 07:15 Glucose (Fingerstick) 119 mg/dL (70-99) Objective Assessment Sepsis POA. Acinetobacter bacteremia (10/23) -RIJ tunneled HDC removed, 10/27. culture cath tip NGTD -Placement temp HDC (10/30. Bandemia H/o recent c. diff CKD on HD Cirrhosis of liver w/ refractory ascites DM with hypoglycemia Debility SVT Thrombocytopenia Plan Plan of Care Continue Unasyn hope to wean soon Po vancomycin BID for prophylaxis Monitor labs/cults cath ? GPR 10/27 Supportive care Overall poor prognosis Attending Co-Sign Attending Co-Sign The patient was seen and interviewed as well as examined at the bedside. The chart was reviewed. The case was discussed. Agree with the plan of care. ADITYA NORTON APRN November 01, 2016 10:20 LEXA MAYFIELD MD November 01, 2016 14:49
--- NOTE | 2016-11-01 10:22 | PDOC ---
PROGRESS NOTES Chief Complaint Chief Complaint cc: syncopal episode, SVT, ESRD, Acinetobacter bacteremia ESRD, on HD anemia of chronic disease chronic diastolic heart failure DM type II GERD hyperlipidemia hypertension, with HYPOTENSION around HD hypothyroidism hepatitis, end stage cirrhosis with chronic ascites gout cardiomyopathy prior C. diff. History of Present Illness History of Present Illness Bleeding from the R subclavian site of HD cath Platelets 19 INR 2 plus Know advanced liver failure - hospice candidate has been refusing in the past Today he is not hostile to me- change of heart with his prognosis? Hgb ok so far ABd getting distended again LAst large volume paracentesis was or wednesday - drained 9 L plan: Transfuse FFP today VItamin K 10 PO x 1 now Agree with platelet transfusion bec of active bleeding CBC and PT/INR juan Might need paracentesis again within the week Planned for perm HD cath on Wednesday, - NEED TO RAISE PLATELETS PRIOR TO THIS PROCEDURE REconsult of hospice again - trial of pat consult Vitals Vitals Vital Signs Date Time Temp Pulse Resp B/P (MAP) Pulse Ox O2 Delivery O2 Flow Rate FiO2 11/01/16 10:07 97.8 66 115/65 97.8 11/01/16 08:00 Nasal Cannula 2.0 11/01/16 07:00 18 99 Physical Exam General: Alert, No acute distress Heart: Normal S1, Other (tachycardia, on midorinine gtt. ) Lungs: Clear, Other (diminished inspiratory effort. negative chest retractions and/or accessory muscle use. ) Abdomen: Other Extremities: No clubbing, Other Skin: No rashes, Other (Left ankle ulcer. Right shoulder ulcer. dressing placed. ) Labs LABS Laboratory Tests Test 10/31/16 10:20 10/31/16 16:03 10/31/16 20:45 11/01/16 05:30 Glucose (Fingerstick) 177 mg/dL (70-99) 190 mg/dL (70-99) 216 mg/dL (70-99) White Blood Count 9.8 x10^3/uL (4.0-11.0) Red Blood Count 2.67 x10^6/uL (4.30-5.70) Hemoglobin 7.8 g/dL (13.0-17.5) Hematocrit 23.1 % (39.0-53.0) Mean Corpuscular Volume 87 fL (79-100) Mean Corpuscular Hemoglobin 29 pg (25-35) Mean Corpuscular Hemoglobin Concent 34 g/dL (31-37) Red Cell Distribution Width 17.1 % (11.5-14.5) Platelet Count 13 x10^3/uL (140-400) Neutrophils (%) (Auto) 94 % (31-73) Lymphocytes (%) (Auto) 4 % (24-48) Monocytes (%) (Auto) 2 % (0-9) Eosinophils (%) (Auto) 0 % (0-3) Basophils (%) (Auto) 0 % (0-3) Neutrophils # (Auto) 9.2 x10^3uL (1.8-7.7) Lymphocytes # (Auto) 0.4 x10^3/uL (1.0-4.8) Monocytes # (Auto) 0.2 x10^3/uL (0.0-1.1) Eosinophils # (Auto) 0.0 x10^3/uL (0.0-0.7) Basophils # (Auto) 0.0 x10^3/uL (0.0-0.2) Prothrombin Time 22.7 SEC (11.7-14.0) Prothromb Time International Ratio 2.2 (0.8-1.1) Sodium Level 137 mmol/L (136-145) Potassium Level 3.8 mmol/L (3.5-5.1) Chloride Level 102 mmol/L (98-107) Carbon Dioxide Level 29 mmol/L (21-32) Anion Gap 6 (6-14) Blood Urea Nitrogen 46 mg/dL (8-26) Creatinine 3.3 mg/dL (0.7-1.3) Estimated GFR (Cockcroft-Gault) 23.4 Glucose Level 127 mg/dL (70-99) Calcium Level 7.5 mg/dL (8.5-10.1) Phosphorus Level 2.6 mg/dL (2.6-4.7) Albumin 2.3 g/dL (3.4-5.0) Test 11/01/16 07:15 Glucose (Fingerstick) 119 mg/dL (70-99) Review of Systems Review of Systems pain in R subclavian, all else he denies - or is limited Assessment and Plan Assessmemt and Plan Problems Medical Problems: (1) Ascites Status: Acute (2) ESRD (end stage renal disease) on dialysis Status: Acute (3) SVT (supraventricular tachycardia) Status: Acute (4) Syncope Status: Acute Problems: Comment Review of Relevant I have reviewed the following items дмитрий (where applicable) has been applied. Labs Laboratory Tests Test 10/30/16 15:17 10/30/16 16:50 10/30/16 23:00 10/31/16 05:38 Glucose (Fingerstick) 133 mg/dL (70-99) 81 mg/dL (70-99) Platelet Count 14 x10^3/uL (140-400) 29 x10^3/uL (140-400) Prothrombin Time 20.3 SEC (11.7-14.0) Prothromb Time International Ratio 1.9 (0.8-1.1) White Blood Count 7.6 x10^3/uL (4.0-11.0) Red Blood Count 2.79 x10^6/uL (4.30-5.70) Hemoglobin 8.1 g/dL (13.0-17.5) Hematocrit 24.1 % (39.0-53.0) Mean Corpuscular Volume 87 fL (79-100) Mean Corpuscular Hemoglobin 29 pg (25-35) Mean Corpuscular Hemoglobin Concent 34 g/dL (31-37) Red Cell Distribution Width 17.6 % (11.5-14.5) Neutrophils (%) (Auto) 90 % (31-73) Lymphocytes (%) (Auto) 6 % (24-48) Monocytes (%) (Auto) 3 % (0-9) Eosinophils (%) (Auto) 0 % (0-3) Basophils (%) (Auto) 0 % (0-3) Neutrophils # (Auto) 6.8 x10^3uL (1.8-7.7) Lymphocytes # (Auto) 0.5 x10^3/uL (1.0-4.8) Monocytes # (Auto) 0.2 x10^3/uL (0.0-1.1) Eosinophils # (Auto) 0.0 x10^3/uL (0.0-0.7) Basophils # (Auto) 0.0 x10^3/uL (0.0-0.2) Sodium Level 137 mmol/L (136-145) Potassium Level 3.6 mmol/L (3.5-5.1) Chloride Level 102 mmol/L (98-107) Carbon Dioxide Level 29 mmol/L (21-32) Anion Gap 6 (6-14) Blood Urea Nitrogen 36 mg/dL (8-26) Creatinine 2.8 mg/dL (0.7-1.3) Estimated GFR (Cockcroft-Gault) 28.3 Glucose Level 100 mg/dL (70-99) Calcium Level 7.7 mg/dL (8.5-10.1) Phosphorus Level 2.3 mg/dL (2.6-4.7) Albumin 2.6 g/dL (3.4-5.0) Test 10/31/16 06:58 10/31/16 10:20 10/31/16 16:03 10/31/16 20:45 Glucose (Fingerstick) 125 mg/dL (70-99) 177 mg/dL (70-99) 190 mg/dL (70-99) 216 mg/dL (70-99) Test 11/01/16 05:30 11/01/16 07:15 White Blood Count 9.8 x10^3/uL (4.0-11.0) Red Blood Count 2.67 x10^6/uL (4.30-5.70) Hemoglobin 7.8 g/dL (13.0-17.5) Hematocrit 23.1 % (39.0-53.0) Mean Corpuscular Volume 87 fL (79-100) Mean Corpuscular Hemoglobin 29 pg (25-35) Mean Corpuscular Hemoglobin Concent 34 g/dL (31-37) Red Cell Distribution Width 17.1 % (11.5-14.5) Platelet Count 13 x10^3/uL (140-400) Neutrophils (%) (Auto) 94 % (31-73) Lymphocytes (%) (Auto) 4 % (24-48) Monocytes (%) (Auto) 2 % (0-9) Eosinophils (%) (Auto) 0 % (0-3) Basophils (%) (Auto) 0 % (0-3) Neutrophils # (Auto) 9.2 x10^3uL (1.8-7.7) Lymphocytes # (Auto) 0.4 x10^3/uL (1.0-4.8) Monocytes # (Auto) 0.2 x10^3/uL (0.0-1.1) Eosinophils # (Auto) 0.0 x10^3/uL (0.0-0.7) Basophils # (Auto) 0.0 x10^3/uL (0.0-0.2) Prothrombin Time 22.7 SEC (11.7-14.0) Prothromb Time International Ratio 2.2 (0.8-1.1) Sodium Level 137 mmol/L (136-145) Potassium Level 3.8 mmol/L (3.5-5.1) Chloride Level 102 mmol/L (98-107) Carbon Dioxide Level 29 mmol/L (21-32) Anion Gap 6 (6-14) Blood Urea Nitrogen 46 mg/dL (8-26) Creatinine 3.3 mg/dL (0.7-1.3) Estimated GFR (Cockcroft-Gault) 23.4 Glucose Level 127 mg/dL (70-99) Calcium Level 7.5 mg/dL (8.5-10.1) Phosphorus Level 2.6 mg/dL (2.6-4.7) Albumin 2.3 g/dL (3.4-5.0) Glucose (Fingerstick) 119 mg/dL (70-99) Laboratory Tests Test 10/31/16 10:20 10/31/16 16:03 10/31/16 20:45 11/01/16 05:30 Glucose (Fingerstick) 177 mg/dL (70-99) 190 mg/dL (70-99) 216 mg/dL (70-99) White Blood Count 9.8 x10^3/uL (4.0-11.0) Red Blood Count 2.67 x10^6/uL (4.30-5.70) Hemoglobin 7.8 g/dL (13.0-17.5) Hematocrit 23.1 % (39.0-53.0) Mean Corpuscular Volume 87 fL (79-100) Mean Corpuscular Hemoglobin 29 pg (25-35) Mean Corpuscular Hemoglobin Concent 34 g/dL (31-37) Red Cell Distribution Width 17.1 % (11.5-14.5) Platelet Count 13 x10^3/uL (140-400) Neutrophils (%) (Auto) 94 % (31-73) Lymphocytes (%) (Auto) 4 % (24-48) Monocytes (%) (Auto) 2 % (0-9) Eosinophils (%) (Auto) 0 % (0-3) Basophils (%) (Auto) 0 % (0-3) Neutrophils # (Auto) 9.2 x10^3uL (1.8-7.7) Lymphocytes # (Auto) 0.4 x10^3/uL (1.0-4.8) Monocytes # (Auto) 0.2 x10^3/uL (0.0-1.1) Eosinophils # (Auto) 0.0 x10^3/uL (0.0-0.7) Basophils # (Auto) 0.0 x10^3/uL (0.0-0.2) Prothrombin Time 22.7 SEC (11.7-14.0) Prothromb Time International Ratio 2.2 (0.8-1.1) Sodium Level 137 mmol/L (136-145) Potassium Level 3.8 mmol/L (3.5-5.1) Chloride Level 102 mmol/L (98-107) Carbon Dioxide Level 29 mmol/L (21-32) Anion Gap 6 (6-14) Blood Urea Nitrogen 46 mg/dL (8-26) Creatinine 3.3 mg/dL (0.7-1.3) Estimated GFR (Cockcroft-Gault) 23.4 Glucose Level 127 mg/dL (70-99) Calcium Level 7.5 mg/dL (8.5-10.1) Phosphorus Level 2.6 mg/dL (2.6-4.7) Albumin 2.3 g/dL (3.4-5.0) Test 11/01/16 07:15 Glucose (Fingerstick) 119 mg/dL (70-99) Microbiology 10/25/16 Blood Culture - Final, Complete NO GROWTH AFTER 5 DAYS 10/27/16 Gram Stain - Final, Complete 10/27/16 Gram Stain - Final, Complete Medications Current Medications Sodium Chloride 500 ml @ 250 mls/hr 1X ONCE IV Last administered on t 16:24; Start 10/23/16 at 16:15; Stop 10/23/16 at 18:14; Status DC Sodium Chloride 500 ml @ 250 mls/hr 1X ONCE IV Last administered on 17:15; Start 10/23/16 at 17:15; Stop 10/23/16 at 19:14; Status DC Diltiazem HCl (Cardizem) 5 mg 1X ONCE IVP Last administered on 10/23/16 19:12 ; Start 10/23/16 at 18:45; Stop 10/23/16 at 18:49; Status DC Diltiazem HCl 125 mg/Dextrose 125 ml @ 0 mls/hr 1X ONCE IV ; Start 10/23/16 at 18:45; Stop 10/23/16 at 19:59; Status DC Digoxin (Lanoxin) 250 mcg 1X ONCE IV Last administered on 10/23/16 22:36; Start 10/23/16 at 20:00; Stop 10/23/16 at 20:01; Status DC Ondansetron HCl (Zofran) 4 mg PRN Q8HRS PRN IV NAUSEA/VOMITING; Start 10/23/16 at 20:15; Stop 10/23/16 at 22:04; Status DC Acetaminophen (Tylenol) 650 mg PRN Q4HRS PRN PO FEVER; Start 10/23/16 at 20:15 ; Stop 10/23/16 at 22:04; Status DC Acetaminophen (Tylenol) 325 mg PRN Q6HRS PRN PO MILD PAIN / TEMP; Start at 22:00; Stop 10/25/16 at 11:09; Status DC Acetaminophen/ Hydrocodone Bitart (Lortab 5/325) 1 tab PRN Q6HRS PRN PO MODERATE TO SEVERE PAIN; Start 10/23/16 at 22:00 Hydralazine HCl (Apresoline) 10 mg PRN Q4HRS PRN IVP ELEVATED BP, SEE COMMENTS ; Start 10/23/16 at 22:00 Ondansetron HCl (Zofran) 4 mg PRN Q8HRS PRN IV NAUSEA/VOMITING; Start 10/23/16 at 22:00 Albuterol Sulfate (Ventolin Neb Soln) 2.5 mg PRN Q4HRS PRN NEB SHORTNESS OF BREATH; Start 10/23/16 at 22:00 Sodium Chloride 500 ml @ 500 mls/hr 1X ONCE IV Last administered on 22:34; Start 10/23/16 at 22:30; Stop 10/23/16 at 23:29; Status DC Pneumococcal Polyvalent Vaccine (Do NOT chart on this placeholder) 1 each PRN DAILY PRN [facility] UNABLE TO RESPOND; Start 10/24/16 at 00:15; Status Cancel Dextrose (Dextrose 50%-Water Syringe) 12.5 gm PRN Q15MIN PRN IV SEE COMMENTS Last administered on 10/25/16 21:40; Start 10/24/16 at 01:15; Stop 10/29/16 at 15:08; Status DC Dextrose (Dextrose 50%-Water Syringe) 25 gm STK-MED ONCE IV ; Start 10/24/16 at 01:05; Stop 10/24/16 at 01:06; Status DC Metoprolol Tartrate (Lopressor) 12.5 mg BID PO Last administered on 10/25/16 21:06; Start 10/24/16 at 09:30; Stop 10/26/16 at 12:27; Status DC Acetaminophen (Tylenol) 650 mg PRN Q4HRS PRN PO PAIN; Start 10/24/16 at 10:45 Allopurinol (Zyloprim) 100 mg DAILY PO Last administered on 11/01/16 08:43; Start 10/24/16 at 11:00 Atorvastatin Calcium (Lipitor) 10 mg DAILY PO Last administered on 10/24/16 13 :52; Start 10/24/16 at 11:00; Stop 10/25/16 at 14:11; Status DC Calcium Acetate (Phoslo) 1,334 mg TIDWMEALS PO Last administered on 11/01/16 08 :43; Start 10/24/16 at 12:00 Diphenhydramine HCl (Benadryl) 25 mg PRN Q4HRS PRN PO ITCHING; Start 10/24/16 at 10:45 Famotidine (Pepcid) 20 mg DAILY PO Last administered on 11/01/16 08:44; Start 10/24/16 at 11:00 Fentanyl (Duragesic 50mcg/ Hr Patch) 1 patch Q72H TD Last administered on 11:00; Start 10/24/16 at 11:00 Ferrous Sulfate (Feosol) 325 mg DAILY PO Last administered on 11/01/16 08:44; Start 10/24/16 at 11:00 Folic Acid (Folic Acid) 1 mg DAILY PO Last administered on 11/01/16 08:44; Start 10/24/16 at 11:00 Levothyroxine Sodium (Synthroid) 75 mcg DAILYAC PO Last administered on 08:43; Start 10/25/16 at 07:30 Midodrine (Proamatine) 2.5 mg PRN TID PRN PO BLOOD PRESSURE Last administered on 10/30/16 20:16; Start 10/24/16 at 10:45 Midodrine (Proamatine) 5 mg [id number] PO Last administered on 11/01/16 08:44; Start 10/24/16 at 14:00 Sodium Bicarbonate (Sodium Bicarbonate) 650 mg BID PO Last administered on 09:31; Start 10/24/16 at 11:00; Stop 10/29/16 at 11:34; Status DC Calcium/Vitamin D (Oscal D 500mg/ 200uts) 1 tab TID PO Last administered on 11/01 08:44; Start 10/24/16 at 14:00 Non-Formulary Medication 500 mg QID PO ; Start 10/24/16 at 13:00; Stop 10/24/16 at 13:00; Status DC Glucagon (Glucagen) 1 mg 1X PRN IM HYPOGLYCEMIA; Start 10/24/16 at 11:00; Stop 10/27/16 at 14:47; Status DC Insulin Aspart (Novolog) 3 units TIDAC SQ ; Start 10/24/16 at 11:30; Stop at 11:36; Status DC Lactobacillus Acidophilus (Bacid, Lou-Bid) 2 tab DAILY PO Last administered on 11/01/16 08:43; Start 10/24/16 at 11:00 Oxycodone HCl (Roxicodone) 5 mg PRN Q4HRS PRN PO PAIN Last administered on 20:23; Start 10/24/16 at 11:15 Potassium Chloride (Klor-Con) 10 meq [id number] PO Last administered on 08:44; Start 10/24/16 at 11:00 Vancomycin HCl 125 mg Q6HRS PO Last administered on 10/26/16 06:14; Start 10/24 at 12:00; Stop 10/26/16 at 11:21; Status DC Piperacillin Sod/ Tazobactam Sod (Zosyn Per Pharmacy) 1 each PRN DAILY PRN [facility] SEE COMMENTS; Start 10/24/16 at 10:45; Stop 10/26/16 at 13:22; Status DC Vancomycin HCl 1.5 gm/Sodium Chloride 500 ml @ 250 mls/hr 1X ONCE IV ; Start 10/24/16 at 11:15; Stop 10/24/16 at 11:15; Status DC Piperacillin Sod/ Tazobactam Sod 2.25 gm/Sodium Chloride 50 ml @ 100 mls/hr Q6HRS IV Last administered on 10/26/16 12:39; Start 10/24/16 at 12:00; Stop 10/26/16 at 13:23; Status DC Insulin Aspart (Novolog) 3 units TIDAC SQ ; Start 10/24/16 at 11:35; Stop at 07:44; Status DC Heparin Sodium (Porcine) 5,000 unit Q8HRS SQ Last administered on 10/25/16 06: 09; Start 10/24/16 at 22:00; Stop 10/25/16 at 14:04; Status DC Amino Acids/ Glycerin/ Electrolytes 1,000 ml @ 40 mls/hr Q24H IV Last administered on 10/26/16 04:09; Start 10/24/16 at 17:15; Stop 10/26/16 at 10:57; Status DC Dextrose (Dextrose 50%-Water Syringe) 25 gm PRN Q1HR PRN IV SEE COMMENTS Last administered on 10/26/16 08:54; Start 10/24/16 at 17:15 Glucose (Insta-Glucose) 15 gm STK-MED ONCE .ROUTE ; Start 10/24/16 at 17:44; Stop 10/24/16 at 17:45; Status DC Glucose (Insta-Glucose) 15 gm PRN Q15MIN PRN PO LOW BLOOD SUGAR Last administered on 10/24/16 17:50; Start 10/24/16 at 18:00 Sodium Polystyrene Sulfonate (Kayexalate) 15 gm 1X ONCE PO ; Start 10/25/16 at 07:00; Stop 10/25/16 at 07:01; Status DC Magnesium Sulfate/ Dextrose 50 ml @ 25 mls/hr PRN DAILY PRN IV for Mag < 1.7 on am labs Last administered on 10/28/16 09:11; Start 10/25/16 at 07:30 Calcium Gluconate (Calcium Gluconate) 1,000 mg Q2H IVP Last administered on 17:11; Start 10/25/16 at 07:30; Stop 10/25/16 at 11:31; Status DC Albumin Human 100 ml @ 100 mls/hr 1X ONCE IV Last administered on 10/25/16 08:32; Start 10/25/16 at 08:30; Stop 10/25/16 at 09:29; Status DC Albumin Human 50 ml @ 50 mls/hr 1X ONCE IV Last administered on 10/25/16 08: 30; Start 10/25/16 at 08:30; Stop 10/25/16 at 09:29; Status DC Info (PHARMACY MONITORING -- do not chart) 1 each PRN DAILY PRN MC SEE COMMENTS ; Start 10/25/16 at 08:45 Info (PHARMACY MONITORING -- do not chart) 1 each PRN DAILY PRN MC SEE COMMENTS ; Start 10/25/16 at 08:45; Status Cancel Sodium Chloride 1,000 ml @ 1,000 mls/hr Q1H PRN IV hypotension; Start 10/25/16 at 08:54; Stop 10/25/16 at 14:53; Status DC Albumin Human 200 ml @ 200 mls/hr 1X PRN PRN IV Hypotension Last administered on 10/25/16 09:08; Start 10/25/16 at 09:00; Stop 10/25/16 at 14:59; Status DC Sodium Chloride (Normal Saline Flush) 10 ml 1X PRN PRN IV AP catheter pack; Start 10/25/16 at 09:00; Stop 10/26/16 at 08:59; Status DC Sodium Chloride (Normal Saline Flush) 10 ml 1X PRN PRN IV [employer] catheter pack; Start 10/25/16 at 09:00; Stop 10/26/16 at 08:59; Status DC Info (PHARMACY MONITORING -- do not chart) 1 each PRN DAILY PRN MC SEE COMMENTS ; Start 10/25/16 at 09:00; Status Cancel Info (PHARMACY MONITORING -- do not chart) 1 each PRN DAILY PRN MC SEE COMMENTS ; Start 10/25/16 at 09:00; Stop 10/26/16 at 11:18; Status DC Atorvastatin Calcium (Lipitor) 10 mg QHS PO Last administered on 10/31/16 22:00 ; Start 10/26/16 at 21:00 Dextrose (Dextrose 50%-Water Syringe) 25 gm 1X ONCE IV Last administered on 22:00; Start 10/25/16 at 22:15; Stop 10/25/16 at 22:16; Status DC Dextrose 1,000 ml @ 80 mls/hr [id number] IV Last administered on 10/28/16 05:19; Start 10/26/16 at 11:00; Stop 10/28/16 at 13:57; Status DC Vancomycin HCl 125 mg BID PO Last administered on 11/01/16 08:44; Start at 21:00 Ampicillin Sodium/ Sulbactam Sodium 1.5 gm/Sodium Chloride 50 ml @ 100 mls/hr Q6HRS IV Last administered on 11/01/16 05:46; Start 10/26/16 at 18:00 Sodium Chloride 1,000 ml @ 1,000 mls/hr Q1H PRN IV hypotension; Start 10/27/16 at 10:11; Stop 10/27/16 at 16:10; Status DC Albumin Human 200 ml @ 200 mls/hr 1X PRN PRN IV Hypotension Last administered on 10/27/16 11:18; Start 10/27/16 at 10:15; Stop 10/27/16 at 16:14; Status DC Diphenhydramine HCl (Benadryl) 25 mg 1X PRN PRN IV ITCHING; Start 10/27/16 at 10 :15; Stop 10/27/16 at 19:00; Status DC Diphenhydramine HCl (Benadryl) 25 mg 1X PRN PRN IV ITCHING; Start 10/27/16 at 10 :15; Stop 10/27/16 at 19:00; Status DC Sodium Chloride 1,000 ml @ 400 mls/hr Q2H30M PRN IV PATENCY; Start 10/27/16 at 10:11; Stop 10/27/16 at 22:10; Status DC Info (PHARMACY MONITORING -- do not chart) 1 each PRN DAILY PRN MC SEE COMMENTS ; Start 10/27/16 at 10:15; Status Cancel Lidocaine/ Epinephrine (Xylocaine 1%-Epi 1:100,000) 20 ml STK-MED ONCE .ROUTE ; Start 10/27/16 at 14:41; Stop 10/27/16 at 14:42; Status DC Glucagon (Glucagen) 1 mg 1X PRN PRN IM HYPOGLYCEMIA; Start 10/27/16 at 14:47 Lidocaine/Sodium Bicarbonate (Buffered Lidocaine 1%) 4 ml 1X ONCE IJ ; Start at 15:30; Stop 10/27/16 at 15:59; Status DC Albumin Human 100 ml @ 100 mls/hr 1X ONCE IV Last administered on 10/27/16 15 :57; Start 10/27/16 at 16:00; Stop 10/27/16 at 16:59; Status DC Lidocaine/ Epinephrine (Xylocaine 1%-Epi 1:100,000) 7 ml 1X ONCE INJ ; Start at 16:00; Stop 10/27/16 at 16:01; Status DC Calcium Chloride 2000 mg/Sodium Chloride 120 ml @ 240 mls/hr 1X ONCE IV Last administered on 10/28/16 12:45; Start 10/28/16 at 11:45; Stop 10/28/16 at 12:14; Status DC Darbepoetin Aaron (Aranesp) 60 mcg [id number] SQ Last administered on 10/28/16 20: 46; Start 10/28/16 at 21:00 Vitamin A/Vitamin D (Vitamin A & D Ointment) 1 vanna TID TP Last administered on 10/31/16 22:00; Start 10/28/16 at 21:00 Tobramycin Sulfate 300 mg/ Sodium Chloride 107.5 ml @ 107.5 mls/ hr 1X ONCE IV Last administered on 10/29/16 13:07; Start 10/29/16 at 10:30; Stop 10/29/16 at 11:29; Status DC Albumin Human 100 ml @ 100 mls/hr Q1H IV Last administered on 10/29/16 16:00; Start 10/29/16 at 12:00; Stop 10/29/16 at 13:59; Status DC Dextrose 1,000 ml @ 50 mls/hr Q20H IV Last administered on 10/31/16 22:20; Start 10/30/16 at 11:15 Heparin Sodium (Porcine) (Heparin Sodium) 10,000 unit STK-MED ONCE .ROUTE ; Start 10/30/16 at 11:37; Stop 10/30/16 at 11:38; Status DC Lidocaine/Sodium Bicarbonate (Buffered Lidocaine 1%) 20 ml STK-MED ONCE IJ ; Start 10/30/16 at 11:38; Stop 10/30/16 at 11:39; Status DC Heparin Sodium/ Sodium Chloride 500 ml @ As Directed STK-MED ONCE .ROUTE ; Start 10/30/16 at 11:38; Stop 10/30/16 at 11:39; Status DC Lidocaine/Sodium Bicarbonate (Buffered Lidocaine 1%) 3 ml 1X ONCE IJ Last administered on 10/30/16 12:00; Start 10/30/16 at 12:00; Stop 10/30/16 at 12:06; Status DC Heparin Sodium (Porcine) (Heparin Sodium) 2,400 unit 1X ONCE INT CAT Last administered on 10/30/16 12:00; Start 10/30/16 at 12:00; Stop 10/30/16 at 12:06; Status DC Heparin Sodium/ Sodium Chloride 60 unit 1X ONCE IV Last administered on 12:00; Start 10/30/16 at 12:00; Stop 10/30/16 at 12:06; Status DC Iohexol (Omnipaque 300 Mg/ml) 50 ml STK-MED ONCE .ROUTE ; Start 10/30/16 at 12:19 ; Stop 10/30/16 at 12:20; Status DC Iohexol (Omnipaque 300 Mg/ml) 50 ml 1X ONCE IJ Last administered on 10/30/16 12:30; Start 10/30/16 at 12:30; Stop 10/30/16 at 12:31; Status DC Info (Do NOT chart on this entry -- for MONITORING) 1 each PRN DAILY PRN MC SEE COMMENTS; Start 10/30/16 at 12:30; Stop 11/01/16 at 12:29 Sodium Chloride 1,000 ml @ 1,000 mls/hr Q1H PRN IV hypotension; Start 10/30/16 at 15:50; Stop 10/30/16 at 21:49; Status DC Albumin Human 200 ml @ 200 mls/hr 1X PRN PRN IV Hypotension Last administered on 10/30/16 19:30; Start 10/30/16 at 16:00; Stop 10/30/16 at 21:59; Status DC Diphenhydramine HCl (Benadryl) 25 mg 1X PRN PRN IV ITCHING; Start 10/30/16 at 16 :00; Stop 10/31/16 at 15:59; Status DC Diphenhydramine HCl (Benadryl) 25 mg 1X PRN PRN IV ITCHING; Start 10/30/16 at 16 :00; Stop 10/31/16 at 15:59; Status DC Sodium Chloride (Normal Saline Flush) 10 ml 1X PRN PRN IV AP catheter pack; Start 10/30/16 at 16:00; Stop 10/31/16 at 15:59; Status DC Sodium Chloride (Normal Saline Flush) 10 ml 1X PRN PRN IV [employer] catheter pack; Start 10/30/16 at 16:00; Stop 10/31/16 at 15:59; Status DC Info (PHARMACY MONITORING -- do not chart) 1 each PRN DAILY PRN MC SEE COMMENTS ; Start 10/30/16 at 16:00 Gelatin (Gelfoam Size 12-7mm) 1 each 1X STAT TP Last administered on 17:22; Start 10/30/16 at 17:22; Stop 10/30/16 at 17:25; Status DC Gelatin (Gelfoam Size 100) 1 each STK-MED ONCE .ROUTE ; Start 10/30/16 at 17:29 ; Stop 10/30/16 at 17:30; Status DC Phytonadione (Mephyton) 10 mg 1X ONCE PO ; Start 11/01/16 at 09:45; Stop at 09:46; Status DC Active Scripts Active Midodrine Hcl 2.5 Mg Tablet 2.5 Mg PO PRN TID PRN Reported Gluco Burst (Dextrose) 37.5 Gm Gel..gram. 37.5 Gm PO PRN Glucagon Emergency Kit (Glucagon,Human Recombinant) 1 Mg Kit 1 Mg IM PRN Ferrous Sulfate 325 Mg Tablet 1 Tab PO DAILY DURAGESIC 50mcg/hr (Fentanyl) 1 Each Patch.td72 1 Patch TD Q72H Benadryl (Diphenhydramine Hcl) 25 Mg Capsule 25 Mg PO PRN Q4HRS PRN Midodrine Hcl 5 Mg Tablet 5 Mg PO BID Sodium Bicarbonate 650 Mg Tablet 650 Mg PO BID Potassium Chloride 10 Meq Tablet.er 10 Meq PO DAILY Keflex (Cephalexin) 500 Mg Capsule 500 Mg PO QID Humalog Kwikpen (Insulin Lispro) 200 Unit/1 Ml Insuln.pen 3 Unit SQ TIDAC Famotidine 20 Mg Tablet 20 Mg PO DAILY Oxycodone Hcl 15 Mg Tablet 1 Tab PO PRN Q4HRS PRN Phoslo (Calcium Acetate) 667 Mg Capsule 2 Cap PO TIDWMEALS Allopurinol 100 Mg Tablet 1 Tab PO DAILY Oyster Shell Calcium-Vit D Tab (Calcium Carbonate/Vitamin D2) 1 Each Tablet 1 Each PO TID Acidophilus Lactobacillus (Lactobacillus Acidophilus) 1 Each Capsule 1 Each PO DAILY Acetaminophen 325 Mg Tablet 650 Mg PO PRN Q4HRS PRN Atorvastatin Calcium 10 Mg Tablet 1 Tab PO DAILY Folic Acid 1 Mg Tablet 1 Mg PO DAILY Levothyroxine Sodium 25 Mcg Tablet 75 Mcg PO DAILYAC Vitals/I & O Vital Sign - Last 24 Hours 10/31/16 10/31/16 10/31/16 10/31/16 10:49 14:00 15:11 19:00 Temp 97.7 97.8 98.5 97.7 97.8 98.5 Pulse 80 80 81 115 Resp 18 18 18 B/P (MAP) 108/78 (88) 108/78 120/84 (96) 136/98 (111) Pulse Ox 90 92 88 O2 Delivery Nasal Cannula Nasal Cannula Nasal Cannula O2 Flow Rate 2.0 2.0 2.0 10/31/16 10/31/16 11/01/16 11/01/16 20:00 23:00 03:00 07:00 Temp 98.4 98.7 97.9 98.4 98.7 97.9 Pulse 96 73 62 Resp 16 16 18 B/P (MAP) 142/68 (92) 155/95 (115) 162/111 (128) Pulse Ox 91 94 99 O2 Delivery Nasal Cannula Nasal Cannula Nasal Cannula Nasal Cannula O2 Flow Rate 2.0 2.0 2.0 2.0 11/01/16 11/01/16 11/01/16 08:00 08:44 10:07 Temp 97.8 97.8 Pulse 62 66 B/P (MAP) 162/111 115/65 O2 Delivery Nasal Cannula O2 Flow Rate 2.0 Intake and Output 10/31/16 10/31/16 11/01/16 15:00 23:00 07:00 Intake Total 250 ml 450 ml Balance 250 ml 450 ml Nutrition Consultation Dietary Evaluation: Recommendations by RD: Increase Calorie Intake, Protein supplementation Comments: Rec. continue novasource renal TID - 475kcal and 21.6g protein per serving Rec. nephrovite and 500mg vit c q day to aid wound healing Expected Outcomes/Goals: to meet >75% est nutr needs Malnutrition Findings: Food and Nutrition Intake (Mod: <75% est energy req 7days Body Fat Depletion (Non Severe: Mod to Severe Weight Status: Appropriate KARAN FERGUSON MD November 01, 2016 10:22
--- NOTE | 2016-11-01 13:36 | RAD ---
Indication lump. Grayscale and color imaging was performed in targeted to the right upper chest. The subclavian vein and artery are patent. There is a low density, probably cystic, mass measuring approximately 2.3 cm in greatest dimension in the soft tissues of the right upper chest. This would be compatible, in the proper clinical setting, with either a seroma or hematoma
[2016-11-01] MEDS: oxyCODONE IR 5 MG TABLET PO PRN (20:08)
[2016-11-01] MEDS: ATORVASTATIN CALCIUM 10 MG TABLET. PO SCH (20:08)
[2016-11-02] VITALS (13 sets, daily range): BP systolic 83–134; BP diastolic 55–98
[2016-11-02] MEDS: AMPICILLIN/SULBACTAM 1.5 GM in IV NORMAL SALINE 50ML 50 ML IV SCH ×3 (06:01→17:39)
[2016-11-02 06:49] LABS: BASO % 1 % (0-3); EOS % 0 % (0-3); LYMPH # 0.7 x10^3/uL (1.0-4.8); LYMPH % 8 % (24-48); MEAN CORPUSCULAR HEMOGLOBIN 29 pg (25-35); MEAN CORPUSCULAR HGB CONC 33 g/dL (31-37); MEAN CORPUSCULAR VOLUME 86 fL (79-100); MONO % 2 % (0-9); NEUT % 89 % (31-73); PROTHROMBIN TIME PATIENT 21.7 SEC (11.7-14.0); RED BLOOD COUNT 2.39 x10^6/uL (4.30-5.70); RED CELL DISTRIBUTION WIDTH 17.5 % (11.5-14.5); WHITE BLOOD COUNT 8.5 x10^3/uL (4.0-11.0)
[2016-11-02 07:16] LABS: HEMATOCRIT 20.6 % (39.0-53.0); HEMOGLOBIN 6.9 g/dL (13.0-17.5); PLATELET COUNT 22 x10^3/uL (140-400)
[2016-11-02] MEDS ORDERED: DESMOPRESSIN 4 MCG/ML AMPUL. IV ONE (09:15)
--- NOTE | 2016-11-02 09:17 | PDOC ---
Subjective: Subjective: Onc f/u- coagulopathy, thrombocytopenia related to cirrhosis Pt with bleeding, bruising from HD catheter site ? more open to hospice Transfused plt and FFP over the weekend, minimal change in labs Remains very withdrawn for me, does not talk Objective: Vital Signs: Vital Signs Date Time Temp Pulse Resp B/P (MAP) Pulse Ox O2 Delivery O2 Flow Rate FiO2 11/02/16 08:01 99 Nasal Cannula 3.0 11/02/16 07:00 97.7 63 18 121/86 (98) 97.7 Physical Exam: Abdomen: Other (ascites has again returned) Extremities: Other (3+ edema bilateral LE) General: Alert, Oriented X3, No acute distress Lungs: Other (no resp dsitress) Psych/Mental Status: Other (withdrawn, noninteractive) Labs/Imaging: CBC reviewed, plt 13 --> 22 Hgb 7.8 --> 6.8 INR 2.0 Assessment/Plan A/P: 1. Acute on chronic thrombocytopenia, due to ESLD. Baseline 30- 90. Transfusions unlikely to be beneficial with any platelets transfused immediately also being sequestered in spleen. Recommend only transfusing immediately before/ during any procedures and for active bleeding. 2. End-stage liver disease, hepatitis C, refractory ascites with underlying coagulopathy. Needs hospice, previously declines. 3. ESRD on HD. Per nurse, planning dialyze again today (normal schedule TTS) 4. Oozing from HD catheter site. Will give DDAVP today. Checking fibrinogen and will plan to transfuse if < 100. (Previously normal). 5. Acute on chronic anemia. Giving 1 unit PRBC today. Recommend hospice. Has become transfusion dependent and unresponsive due to ESRD and ESLD issues. Pall care planning to try to meet again today. MARIA C GARNETT DO November 02, 2016 09:17
--- NOTE | 2016-11-02 09:25 | PDOC ---
Infectious Disease Note Subjective Subjective Wants legs adjusted o/w ok Less abdominal discomfort and gas ROS ROS GEN: Denies fevers, chills, sweats HEENT: Denies blurred vision, sore throat CV: Denies chest pain RESP: Denies shortness of air, cough GI: Denies n/v/d NEURO: Denies confusion, dizziness MSK: Denies weakness, joint pain/swelling Vital Sign Vital Signs Vital Signs Date Time Temp Pulse Resp B/P (MAP) Pulse Ox O2 Delivery O2 Flow Rate FiO2 11/02/16 08:01 99 Nasal Cannula 3.0 11/02/16 07:00 97.7 63 18 121/86 (98) 97.7 Physical Exam PHYSICAL EXAM GENERAL: Propped up in bed, coop, NAD HEENT: OC/OP pink LUNGS: Clear HEART: S1S2, no gallop, no murmur ABD: Distended, BS present, soft, NT light palpation EXT: BLE edema [employer]: Alert, more conversant, calm, SKIN: No rash Temp HDC/pressure dressing. (10/30). area ecchymosis extending down right-side chest LUE-PICC/bandaged Labs Lab Laboratory Tests Test 11/01/16 10:23 11/01/16 15:44 11/01/16 20:26 11/02/16 06:00 Glucose (Fingerstick) 162 mg/dL (70-99) 186 mg/dL (70-99) 172 mg/dL (70-99) White Blood Count 8.5 x10^3/uL (4.0-11.0) Red Blood Count 2.39 x10^6/uL (4.30-5.70) Hemoglobin 6.9 g/dL (13.0-17.5) Hematocrit 20.6 % (39.0-53.0) Mean Corpuscular Volume 86 fL (79-100) Mean Corpuscular Hemoglobin 29 pg (25-35) Mean Corpuscular Hemoglobin Concent 33 g/dL (31-37) Red Cell Distribution Width 17.5 % (11.5-14.5) Platelet Count 22 x10^3/uL (140-400) Neutrophils (%) (Auto) 89 % (31-73) Lymphocytes (%) (Auto) 8 % (24-48) Monocytes (%) (Auto) 2 % (0-9) Eosinophils (%) (Auto) 0 % (0-3) Basophils (%) (Auto) 1 % (0-3) Neutrophils # (Auto) 7.6 x10^3uL (1.8-7.7) Lymphocytes # (Auto) 0.7 x10^3/uL (1.0-4.8) Monocytes # (Auto) 0.2 x10^3/uL (0.0-1.1) Eosinophils # (Auto) 0.0 x10^3/uL (0.0-0.7) Basophils # (Auto) 0.0 x10^3/uL (0.0-0.2) Prothrombin Time 21.7 SEC (11.7-14.0) Prothromb Time International Ratio 2.0 (0.8-1.1) Test 11/02/16 07:18 11/02/16 08:14 Glucose (Fingerstick) 67 mg/dL (70-99) 92 mg/dL (70-99) Objective Assessment Sepsis POA. Acinetobacter bacteremia (10/23) -RIJ tunneled HDC removed, 10/27. culture cath tip NGTD -Placement temp HDC (10/30. Bandemia H/o recent c. diff CKD on HD Cirrhosis of liver w/ refractory ascites DM with hypoglycemia Debility SVT Thrombocytopenia Plan Plan of Care Continue Unasyn hope to wean soon Po vancomycin BID for prophylaxis Monitor labs/cults cath ? GPR 10/27 Supportive care Overall poor prognosis LEXA MAYFIELD MD November 02, 2016 09:25
[2016-11-02] MEDS: FERROUS SULFATE 325 MG TABLET. PO SCH (09:33)
[2016-11-02] MEDS: LEVOTHYROXINE 25 MCG TABLET. PO SCH (09:33)
[2016-11-02] MEDS: CALCIUM CARB/VIT D3 500/200 TABLET. PO SCH ×2 (09:33→15:21)
[2016-11-02] MEDS: LACTOBACILLUS ACIDOPH & BULGAR 1 TABLET. PO SCH (09:33)
[2016-11-02] MEDS: FAMOTIDINE 20 MG TABLET. PO SCH (09:33)
[2016-11-02] MEDS: CALCIUM ACETATE 667 MG CAPSULE PO SCH ×3 (09:33→17:39)
[2016-11-02] MEDS: POTASSIUM CHLORIDE 10 MEQ TABLET.ER. PO SCH (09:33)
[2016-11-02] MEDS: VANCOMYCIN 125 MG/2.5 ML ORAL SOLUTION. PO SCH (09:34)
[2016-11-02] MEDS: FOLIC ACID 1 MG TABLET. PO SCH (09:34)
[2016-11-02] MEDS: MIDODRINE 5 MG TABLET PO SCH ×2 (09:34→15:22)
[2016-11-02] MEDS: ALLOPURINOL 100 MG TABLET. PO SCH (09:34)
[2016-11-02] MEDS: VITS A & D/LANOLIN TOPICAL OINTMENT 56GM TUBE. TP SCH ×2 (09:35→15:23)
--- NOTE | 2016-11-02 09:44 | PDOC ---
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 GERD Hyperlipidemia Hypotension hypothyroidism Cirrhosis with chronic ascites , HepC gout cardiomyopathy prior C. diff. Plan Transfuse blood today, monitor hemoglobin continue abx Unasyn and vancomycin Received albumin during HD. ID and oncology following s/p FFP and vitamin, still hypercoagulable due to liver disease Severe thrombocytopenia likely got worse with ESRD Desmopressin ordered by oncology labs reviewed, Monitor hemoglobin after transfusion Prognosis very poor, family aware of it, severe time met with palliative team, wants everything to be continued. History of Present Illness History of Present Illness Still having some bleeding from catheter site received FFP and vitamin K Seen HD alert, Vitals Vitals Vital Signs Date Time Temp Pulse Resp B/P (MAP) Pulse Ox O2 Delivery O2 Flow Rate FiO2 11/02/16 09:34 63 121/86 11/02/16 08:01 99 Nasal Cannula 3.0 11/02/16 07:00 97.7 18 97.7 Physical Exam General: Alert, No acute distress, Other (Weak, malnourished.) Heart: Normal S1, Other (tachycardia, on midorinine gtt. ) Lungs: Clear, Other (diminished inspiratory effort. negative chest retractions and/or accessory muscle use. ) Abdomen: Other (ascites has again returned) Extremities: Other (3+ edema bilateral LE) Skin: No rashes, Other (Left ankle ulcer. Right shoulder ulcer. dressing placed. ) Labs LABS Laboratory Tests Test 11/01/16 10:23 11/01/16 15:44 11/01/16 20:26 11/02/16 06:00 Glucose (Fingerstick) 162 mg/dL (70-99) 186 mg/dL (70-99) 172 mg/dL (70-99) White Blood Count 8.5 x10^3/uL (4.0-11.0) Red Blood Count 2.39 x10^6/uL (4.30-5.70) Hemoglobin 6.9 g/dL (13.0-17.5) Hematocrit 20.6 % (39.0-53.0) Mean Corpuscular Volume 86 fL (79-100) Mean Corpuscular Hemoglobin 29 pg (25-35) Mean Corpuscular Hemoglobin Concent 33 g/dL (31-37) Red Cell Distribution Width 17.5 % (11.5-14.5) Platelet Count 22 x10^3/uL (140-400) Neutrophils (%) (Auto) 89 % (31-73) Lymphocytes (%) (Auto) 8 % (24-48) Monocytes (%) (Auto) 2 % (0-9) Eosinophils (%) (Auto) 0 % (0-3) Basophils (%) (Auto) 1 % (0-3) Neutrophils # (Auto) 7.6 x10^3uL (1.8-7.7) Lymphocytes # (Auto) 0.7 x10^3/uL (1.0-4.8) Monocytes # (Auto) 0.2 x10^3/uL (0.0-1.1) Eosinophils # (Auto) 0.0 x10^3/uL (0.0-0.7) Basophils # (Auto) 0.0 x10^3/uL (0.0-0.2) Prothrombin Time 21.7 SEC (11.7-14.0) Prothromb Time International Ratio 2.0 (0.8-1.1) Test 11/02/16 07:18 11/02/16 08:14 Glucose (Fingerstick) 67 mg/dL (70-99) 92 mg/dL (70-99) Assessment and Plan Assessmemt and Plan Problems Medical Problems: (1) Ascites Status: Acute (2) ESRD (end stage renal disease) on dialysis Status: Acute (3) SVT (supraventricular tachycardia) Status: Acute (4) Syncope Status: Acute Problems: Comment Review of Relevant I have reviewed the following items дмитрий (where applicable) has been applied. Labs Laboratory Tests Test 10/31/16 10:20 10/31/16 16:03 10/31/16 20:45 11/01/16 05:30 Glucose (Fingerstick) 177 mg/dL (70-99) 190 mg/dL (70-99) 216 mg/dL (70-99) White Blood Count 9.8 x10^3/uL (4.0-11.0) Red Blood Count 2.67 x10^6/uL (4.30-5.70) Hemoglobin 7.8 g/dL (13.0-17.5) Hematocrit 23.1 % (39.0-53.0) Mean Corpuscular Volume 87 fL (79-100) Mean Corpuscular Hemoglobin 29 pg (25-35) Mean Corpuscular Hemoglobin Concent 34 g/dL (31-37) Red Cell Distribution Width 17.1 % (11.5-14.5) Platelet Count 13 x10^3/uL (140-400) Neutrophils (%) (Auto) 94 % (31-73) Lymphocytes (%) (Auto) 4 % (24-48) Monocytes (%) (Auto) 2 % (0-9) Eosinophils (%) (Auto) 0 % (0-3) Basophils (%) (Auto) 0 % (0-3) Neutrophils # (Auto) 9.2 x10^3uL (1.8-7.7) Lymphocytes # (Auto) 0.4 x10^3/uL (1.0-4.8) Monocytes # (Auto) 0.2 x10^3/uL (0.0-1.1) Eosinophils # (Auto) 0.0 x10^3/uL (0.0-0.7) Basophils # (Auto) 0.0 x10^3/uL (0.0-0.2) Prothrombin Time 22.7 SEC (11.7-14.0) Prothromb Time International Ratio 2.2 (0.8-1.1) Sodium Level 137 mmol/L (136-145) Potassium Level 3.8 mmol/L (3.5-5.1) Chloride Level 102 mmol/L (98-107) Carbon Dioxide Level 29 mmol/L (21-32) Anion Gap 6 (6-14) Blood Urea Nitrogen 46 mg/dL (8-26) Creatinine 3.3 mg/dL (0.7-1.3) Estimated GFR (Cockcroft-Gault) 23.4 Glucose Level 127 mg/dL (70-99) Calcium Level 7.5 mg/dL (8.5-10.1) Phosphorus Level 2.6 mg/dL (2.6-4.7) Albumin 2.3 g/dL (3.4-5.0) Test 11/01/16 07:15 11/01/16 10:23 11/01/16 15:44 11/01/16 20:26 Glucose (Fingerstick) 119 mg/dL (70-99) 162 mg/dL (70-99) 186 mg/dL (70-99) 172 mg/dL (70-99) Test 11/02/16 06:00 11/02/16 07:18 11/02/16 08:14 White Blood Count 8.5 x10^3/uL (4.0-11.0) Red Blood Count 2.39 x10^6/uL (4.30-5.70) Hemoglobin 6.9 g/dL (13.0-17.5) Hematocrit 20.6 % (39.0-53.0) Mean Corpuscular Volume 86 fL (79-100) Mean Corpuscular Hemoglobin 29 pg (25-35) Mean Corpuscular Hemoglobin Concent 33 g/dL (31-37) Red Cell Distribution Width 17.5 % (11.5-14.5) Platelet Count 22 x10^3/uL (140-400) Neutrophils (%) (Auto) 89 % (31-73) Lymphocytes (%) (Auto) 8 % (24-48) Monocytes (%) (Auto) 2 % (0-9) Eosinophils (%) (Auto) 0 % (0-3) Basophils (%) (Auto) 1 % (0-3) Neutrophils # (Auto) 7.6 x10^3uL (1.8-7.7) Lymphocytes # (Auto) 0.7 x10^3/uL (1.0-4.8) Monocytes # (Auto) 0.2 x10^3/uL (0.0-1.1) Eosinophils # (Auto) 0.0 x10^3/uL (0.0-0.7) Basophils # (Auto) 0.0 x10^3/uL (0.0-0.2) Prothrombin Time 21.7 SEC (11.7-14.0) Prothromb Time International Ratio 2.0 (0.8-1.1) Glucose (Fingerstick) 67 mg/dL (70-99) 92 mg/dL (70-99) Laboratory Tests Test 11/01/16 10:23 11/01/16 15:44 11/01/16 20:26 11/02/16 06:00 Glucose (Fingerstick) 162 mg/dL (70-99) 186 mg/dL (70-99) 172 mg/dL (70-99) White Blood Count 8.5 x10^3/uL (4.0-11.0) Red Blood Count 2.39 x10^6/uL (4.30-5.70) Hemoglobin 6.9 g/dL (13.0-17.5) Hematocrit 20.6 % (39.0-53.0) Mean Corpuscular Volume 86 fL (79-100) Mean Corpuscular Hemoglobin 29 pg (25-35) Mean Corpuscular Hemoglobin Concent 33 g/dL (31-37) Red Cell Distribution Width 17.5 % (11.5-14.5) Platelet Count 22 x10^3/uL (140-400) Neutrophils (%) (Auto) 89 % (31-73) Lymphocytes (%) (Auto) 8 % (24-48) Monocytes (%) (Auto) 2 % (0-9) Eosinophils (%) (Auto) 0 % (0-3) Basophils (%) (Auto) 1 % (0-3) Neutrophils # (Auto) 7.6 x10^3uL (1.8-7.7) Lymphocytes # (Auto) 0.7 x10^3/uL (1.0-4.8) Monocytes # (Auto) 0.2 x10^3/uL (0.0-1.1) Eosinophils # (Auto) 0.0 x10^3/uL (0.0-0.7) Basophils # (Auto) 0.0 x10^3/uL (0.0-0.2) Prothrombin Time 21.7 SEC (11.7-14.0) Prothromb Time International Ratio 2.0 (0.8-1.1) Test 11/02/16 07:18 11/02/16 08:14 Glucose (Fingerstick) 67 mg/dL (70-99) 92 mg/dL (70-99) Microbiology 10/25/16 Blood Culture - Final, Complete NO GROWTH AFTER 5 DAYS 10/27/16 Gram Stain - Final, Complete 10/27/16 Gram Stain - Final, Complete Medications Current Medications Sodium Chloride 500 ml @ 250 mls/hr 1X ONCE IV Last administered on 16:24; Start 10/23/16 at 16:15; Stop 10/23/16 at 18:14; Status DC Sodium Chloride 500 ml @ 250 mls/hr 1X ONCE IV Last administered on 17:15; Start 10/23/16 at 17:15; Stop 10/23/16 at 19:14; Status DC Diltiazem HCl (Cardizem) 5 mg 1X ONCE IVP Last administered on 10/23/16 19:12 ; Start 10/23/16 at 18:45; Stop 10/23/16 at 18:49; Status DC Diltiazem HCl 125 mg/Dextrose 125 ml @ 0 mls/hr 1X ONCE IV ; Start 10/23/16 at 18:45; Stop 10/23/16 at 19:59; Status DC Digoxin (Lanoxin) 250 mcg 1X ONCE IV Last administered on 10/23/16 22:36; Start 10/23/16 at 20:00; Stop 10/23/16 at 20:01; Status DC Ondansetron HCl (Zofran) 4 mg PRN Q8HRS PRN IV NAUSEA/VOMITING; Start 10/23/16 at 20:15; Stop 10/23/16 at 22:04; Status DC Acetaminophen (Tylenol) 650 mg PRN Q4HRS PRN PO FEVER; Start 10/23/16 at 20:15 ; Stop 10/23/16 at 22:04; Status DC Acetaminophen (Tylenol) 325 mg PRN Q6HRS PRN PO MILD PAIN / TEMP; Start at 22:00; Stop 10/25/16 at 11:09; Status DC Acetaminophen/ Hydrocodone Bitart (Lortab 5/325) 1 tab PRN Q6HRS PRN PO MODERATE TO SEVERE PAIN; Start 10/23/16 at 22:00 Hydralazine HCl (Apresoline) 10 mg PRN Q4HRS PRN IVP ELEVATED BP, SEE COMMENTS ; Start 10/23/16 at 22:00 Ondansetron HCl (Zofran) 4 mg PRN Q8HRS PRN IV NAUSEA/VOMITING; Start 10/23/16 at 22:00 Albuterol Sulfate (Ventolin Neb Soln) 2.5 mg PRN Q4HRS PRN NEB SHORTNESS OF BREATH; Start 10/23/16 at 22:00 Sodium Chloride 500 ml @ 500 mls/hr 1X ONCE IV Last administered on 22:34; Start 10/23/16 at 22:30; Stop 10/23/16 at 23:29; Status DC Pneumococcal Polyvalent Vaccine (Do NOT chart on this placeholder) 1 each PRN DAILY PRN [facility] UNABLE TO RESPOND; Start 10/24/16 at 00:15; Status Cancel Dextrose (Dextrose 50%-Water Syringe) 12.5 gm PRN Q15MIN PRN IV SEE COMMENTS Last administered on 10/25/16 21:40; Start 10/24/16 at 01:15; Stop 10/29/16 at 15:08; Status DC Dextrose (Dextrose 50%-Water Syringe) 25 gm STK-MED ONCE IV ; Start 10/24/16 at 01:05; Stop 10/24/16 at 01:06; Status DC Metoprolol Tartrate (Lopressor) 12.5 mg BID PO Last administered on 10/25/16 21:06; Start 10/24/16 at 09:30; Stop 10/26/16 at 12:27; Status DC Acetaminophen (Tylenol) 650 mg PRN Q4HRS PRN PO PAIN; Start 10/24/16 at 10:45 Allopurinol (Zyloprim) 100 mg DAILY PO Last administered on 11/02/16 09:34; Start 10/24/16 at 11:00 Atorvastatin Calcium (Lipitor) 10 mg DAILY PO Last administered on 10/24/16 13 :52; Start 10/24/16 at 11:00; Stop 10/25/16 at 14:11; Status DC Calcium Acetate (Phoslo) 1,334 mg TIDWMEALS PO Last administered on 11/02/16 09 :33; Start 10/24/16 at 12:00 Diphenhydramine HCl (Benadryl) 25 mg PRN Q4HRS PRN PO ITCHING; Start 10/24/16 at 10:45 Famotidine (Pepcid) 20 mg DAILY PO Last administered on 11/02/16 09:33; Start 10/24/16 at 11:00 Fentanyl (Duragesic 50mcg/ Hr Patch) 1 patch Q72H TD Last administered on 11:00; Start 10/24/16 at 11:00 Ferrous Sulfate (Feosol) 325 mg DAILY PO Last administered on 11/02/16 09:33; Start 10/24/16 at 11:00 Folic Acid (Folic Acid) 1 mg DAILY PO Last administered on 11/02/16 09:34; Start 10/24/16 at 11:00 Levothyroxine Sodium (Synthroid) 75 mcg DAILYAC PO Last administered on 09:33; Start 10/25/16 at 07:30 Midodrine (Proamatine) 2.5 mg PRN TID PRN PO BLOOD PRESSURE Last administered on 10/30/16 20:16; Start 10/24/16 at 10:45 Midodrine (Proamatine) 5 mg [id number] PO Last administered on 11/02/16 09:34; Start 10/24/16 at 14:00 Sodium Bicarbonate (Sodium Bicarbonate) 650 mg BID PO Last administered on 09:31; Start 10/24/16 at 11:00; Stop 10/29/16 at 11:34; Status DC Calcium/Vitamin D (Oscal D 500mg/ 200uts) 1 tab TID PO Last administered on 11/02 09:33; Start 10/24/16 at 14:00 Non-Formulary Medication 500 mg QID PO ; Start 10/24/16 at 13:00; Stop 10/24/16 at 13:00; Status DC Glucagon (Glucagen) 1 mg 1X PRN IM HYPOGLYCEMIA; Start 10/24/16 at 11:00; Stop 10/27/16 at 14:47; Status DC Insulin Aspart (Novolog) 3 units TIDAC SQ ; Start 10/24/16 at 11:30; Stop at 11:36; Status DC Lactobacillus Acidophilus (Bacid, Lou-Bid) 2 tab DAILY PO Last administered on 11/02/16 09:33; Start 10/24/16 at 11:00 Oxycodone HCl (Roxicodone) 5 mg PRN Q4HRS PRN PO PAIN Last administered on 20:08; Start 10/24/16 at 11:15 Potassium Chloride (Klor-Con) 10 meq [id number] PO Last administered on 09:33; Start 10/24/16 at 11:00 Vancomycin HCl 125 mg Q6HRS PO Last administered on 10/26/16 06:14; Start 10/24 at 12:00; Stop 10/26/16 at 11:21; Status DC Piperacillin Sod/ Tazobactam Sod (Zosyn Per Pharmacy) 1 each PRN DAILY PRN [facility] SEE COMMENTS; Start 10/24/16 at 10:45; Stop 10/26/16 at 13:22; Status DC Vancomycin HCl 1.5 gm/Sodium Chloride 500 ml @ 250 mls/hr 1X ONCE IV ; Start 10/24/16 at 11:15; Stop 10/24/16 at 11:15; Status DC Piperacillin Sod/ Tazobactam Sod 2.25 gm/Sodium Chloride 50 ml @ 100 mls/hr Q6HRS IV Last administered on 10/26/16 12:39; Start 10/24/16 at 12:00; Stop 10/26/16 at 13:23; Status DC Insulin Aspart (Novolog) 3 units TIDAC SQ ; Start 10/24/16 at 11:35; Stop at 07:44; Status DC Heparin Sodium (Porcine) 5,000 unit Q8HRS SQ Last administered on 10/25/16 06: 09; Start 10/24/16 at 22:00; Stop 10/25/16 at 14:04; Status DC Amino Acids/ Glycerin/ Electrolytes 1,000 ml @ 40 mls/hr Q24H IV Last administered on 10/26/16 04:09; Start 10/24/16 at 17:15; Stop 10/26/16 at 10:57; Status DC Dextrose (Dextrose 50%-Water Syringe) 25 gm PRN Q1HR PRN IV SEE COMMENTS Last administered on 10/26/16 08:54; Start 10/24/16 at 17:15 Glucose (Insta-Glucose) 15 gm STK-MED ONCE .ROUTE ; Start 10/24/16 at 17:44; Stop 10/24/16 at 17:45; Status DC Glucose (Insta-Glucose) 15 gm PRN Q15MIN PRN PO LOW BLOOD SUGAR Last administered on 10/24/16 17:50; Start 10/24/16 at 18:00 Sodium Polystyrene Sulfonate (Kayexalate) 15 gm 1X ONCE PO ; Start 10/25/16 at 07:00; Stop 10/25/16 at 07:01; Status DC Magnesium Sulfate/ Dextrose 50 ml @ 25 mls/hr PRN DAILY PRN IV for Mag < 1.7 on am labs Last administered on 10/28/16 09:11; Start 10/25/16 at 07:30 Calcium Gluconate (Calcium Gluconate) 1,000 mg Q2H IVP Last administered on 17:11; Start 10/25/16 at 07:30; Stop 10/25/16 at 11:31; Status DC Albumin Human 100 ml @ 100 mls/hr 1X ONCE IV Last administered on 10/25/16 08:32; Start 10/25/16 at 08:30; Stop 10/25/16 at 09:29; Status DC Albumin Human 50 ml @ 50 mls/hr 1X ONCE IV Last administered on 10/25/16 08: 30; Start 10/25/16 at 08:30; Stop 10/25/16 at 09:29; Status DC Info (PHARMACY MONITORING -- do not chart) 1 each PRN DAILY PRN MC SEE COMMENTS ; Start 10/25/16 at 08:45 Info (PHARMACY MONITORING -- do not chart) 1 each PRN DAILY PRN MC SEE COMMENTS ; Start 10/25/16 at 08:45; Status Cancel Sodium Chloride 1,000 ml @ 1,000 mls/hr Q1H PRN IV hypotension; Start 10/25/16 at 08:54; Stop 10/25/16 at 14:53; Status DC Albumin Human 200 ml @ 200 mls/hr 1X PRN PRN IV Hypotension Last administered on 10/25/16 09:08; Start 10/25/16 at 09:00; Stop 10/25/16 at 14:59; Status DC Sodium Chloride (Normal Saline Flush) 10 ml 1X PRN PRN IV AP catheter pack; Start 10/25/16 at 09:00; Stop 10/26/16 at 08:59; Status DC Sodium Chloride (Normal Saline Flush) 10 ml 1X PRN PRN IV FLEXIBLE BABYSITTER catheter pack; Start 10/25/16 at 09:00; Stop 10/26/16 at 08:59; Status DC Info (PHARMACY MONITORING -- do not chart) 1 each PRN DAILY PRN MC SEE COMMENTS ; Start 10/25/16 at 09:00; Status Cancel Info (PHARMACY MONITORING -- do not chart) 1 each PRN DAILY PRN MC SEE COMMENTS ; Start 10/25/16 at 09:00; Stop 10/26/16 at 11:18; Status DC Atorvastatin Calcium (Lipitor) 10 mg QHS PO Last administered on 11/01/16 20:08 ; Start 10/26/16 at 21:00 Dextrose (Dextrose 50%-Water Syringe) 25 gm 1X ONCE IV Last administered on 22:00; Start 10/25/16 at 22:15; Stop 10/25/16 at 22:16; Status DC Dextrose 1,000 ml @ 80 mls/hr [id number] IV Last administered on 10/28/16 05:19; Start 10/26/16 at 11:00; Stop 10/28/16 at 13:57; Status DC Vancomycin HCl 125 mg BID PO Last administered on 11/02/16 09:34; Start at 21:00 Ampicillin Sodium/ Sulbactam Sodium 1.5 gm/Sodium Chloride 50 ml @ 100 mls/hr Q6HRS IV Last administered on 11/02/16 06:01; Start 10/26/16 at 18:00 Sodium Chloride 1,000 ml @ 1,000 mls/hr Q1H PRN IV hypotension; Start 10/27/16 at 10:11; Stop 10/27/16 at 16:10; Status DC Albumin Human 200 ml @ 200 mls/hr 1X PRN PRN IV Hypotension Last administered on 10/27/16 11:18; Start 10/27/16 at 10:15; Stop 10/27/16 at 16:14; Status DC Diphenhydramine HCl (Benadryl) 25 mg 1X PRN PRN IV ITCHING; Start 10/27/16 at 10 :15; Stop 10/27/16 at 19:00; Status DC Diphenhydramine HCl (Benadryl) 25 mg 1X PRN PRN IV ITCHING; Start 10/27/16 at 10 :15; Stop 10/27/16 at 19:00; Status DC Sodium Chloride 1,000 ml @ 400 mls/hr Q2H30M PRN IV PATENCY; Start 10/27/16 at 10:11; Stop 10/27/16 at 22:10; Status DC Info (PHARMACY MONITORING -- do not chart) 1 each PRN DAILY PRN MC SEE COMMENTS ; Start 10/27/16 at 10:15; Status Cancel Lidocaine/ Epinephrine (Xylocaine 1%-Epi 1:100,000) 20 ml STK-MED ONCE .ROUTE ; Start 10/27/16 at 14:41; Stop 10/27/16 at 14:42; Status DC Glucagon (Glucagen) 1 mg 1X PRN PRN IM HYPOGLYCEMIA; Start 10/27/16 at 14:47 Lidocaine/Sodium Bicarbonate (Buffered Lidocaine 1%) 4 ml 1X ONCE IJ ; Start at 15:30; Stop 10/27/16 at 15:59; Status DC Albumin Human 100 ml @ 100 mls/hr 1X ONCE IV Last administered on 10/27/16 15 :57; Start 10/27/16 at 16:00; Stop 10/27/16 at 16:59; Status DC Lidocaine/ Epinephrine (Xylocaine 1%-Epi 1:100,000) 7 ml 1X ONCE INJ ; Start at 16:00; Stop 10/27/16 at 16:01; Status DC Calcium Chloride 2000 mg/Sodium Chloride 120 ml @ 240 mls/hr 1X ONCE IV Last administered on 10/28/16 12:45; Start 10/28/16 at 11:45; Stop 10/28/16 at 12:14; Status DC Darbepoetin Aaron (Aranesp) 60 mcg [id number] SQ Last administered on 10/28/16 20: 46; Start 10/28/16 at 21:00 Vitamin A/Vitamin D (Vitamin A & D Ointment) 1 vanna TID TP Last administered on 11/02/16 09:35; Start 10/28/16 at 21:00 Tobramycin Sulfate 300 mg/ Sodium Chloride 107.5 ml @ 107.5 mls/ hr 1X ONCE IV Last administered on 10/29/16 13:07; Start 10/29/16 at 10:30; Stop 10/29/16 at 11:29; Status DC Albumin Human 100 ml @ 100 mls/hr Q1H IV Last administered on 10/29/16 16:00; Start 10/29/16 at 12:00; Stop 10/29/16 at 13:59; Status DC Dextrose 1,000 ml @ 50 mls/hr Q20H IV Last administered on 10/31/16 22:20; Start 10/30/16 at 11:15; Stop 11/01/16 at 11:46; Status DC Heparin Sodium (Porcine) (Heparin Sodium) 10,000 unit STK-MED ONCE .ROUTE ; Start 10/30/16 at 11:37; Stop 10/30/16 at 11:38; Status DC Lidocaine/Sodium Bicarbonate (Buffered Lidocaine 1%) 20 ml STK-MED ONCE IJ ; Start 10/30/16 at 11:38; Stop 10/30/16 at 11:39; Status DC Heparin Sodium/ Sodium Chloride 500 ml @ As Directed STK-MED ONCE .ROUTE ; Start 10/30/16 at 11:38; Stop 10/30/16 at 11:39; Status DC Lidocaine/Sodium Bicarbonate (Buffered Lidocaine 1%) 3 ml 1X ONCE IJ Last administered on 10/30/16 12:00; Start 10/30/16 at 12:00; Stop 10/30/16 at 12:06; Status DC Heparin Sodium (Porcine) (Heparin Sodium) 2,400 unit 1X ONCE INT CAT Last administered on 10/30/16 12:00; Start 10/30/16 at 12:00; Stop 10/30/16 at 12:06; Status DC Heparin Sodium/ Sodium Chloride 60 unit 1X ONCE IV Last administered on 12:00; Start 10/30/16 at 12:00; Stop 10/30/16 at 12:06; Status DC Iohexol (Omnipaque 300 Mg/ml) 50 ml STK-MED ONCE .ROUTE ; Start 10/30/16 at 12:19 ; Stop 10/30/16 at 12:20; Status DC Iohexol (Omnipaque 300 Mg/ml) 50 ml 1X ONCE IJ Last administered on 10/30/16 12:30; Start 10/30/16 at 12:30; Stop 10/30/16 at 12:31; Status DC Info (Do NOT chart on this entry -- for MONITORING) 1 each PRN DAILY PRN MC SEE COMMENTS; Start 10/30/16 at 12:30; Stop 11/01/16 at 12:29; Status DC Sodium Chloride 1,000 ml @ 1,000 mls/hr Q1H PRN IV hypotension; Start 10/30/16 at 15:50; Stop 10/30/16 at 21:49; Status DC Albumin Human 200 ml @ 200 mls/hr 1X PRN PRN IV Hypotension Last administered on 10/30/16 19:30; Start 10/30/16 at 16:00; Stop 10/30/16 at 21:59; Status DC Diphenhydramine HCl (Benadryl) 25 mg 1X PRN PRN IV ITCHING; Start 10/30/16 at 16 :00; Stop 10/31/16 at 15:59; Status DC Diphenhydramine HCl (Benadryl) 25 mg 1X PRN PRN IV ITCHING; Start 10/30/16 at 16 :00; Stop 10/31/16 at 15:59; Status DC Sodium Chloride (Normal Saline Flush) 10 ml 1X PRN PRN IV AP catheter pack; Start 10/30/16 at 16:00; Stop 10/31/16 at 15:59; Status DC Sodium Chloride (Normal Saline Flush) 10 ml 1X PRN PRN IV FLEXIBLE BABYSITTER catheter pack; Start 10/30/16 at 16:00; Stop 10/31/16 at 15:59; Status DC Info (PHARMACY MONITORING -- do not chart) 1 each PRN DAILY PRN MC SEE COMMENTS ; Start 10/30/16 at 16:00 Gelatin (Gelfoam Size 12-7mm) 1 each 1X STAT TP Last administered on 17:22; Start 10/30/16 at 17:22; Stop 10/30/16 at 17:25; Status DC Gelatin (Gelfoam Size 100) 1 each STK-MED ONCE .ROUTE ; Start 10/30/16 at 17:29 ; Stop 10/30/16 at 17:30; Status DC Phytonadione (Mephyton) 10 mg 1X ONCE PO Last administered on 11/01/16 11:52; Start 11/01/16 at 09:45; Stop 11/01/16 at 09:46; Status DC Desmopressin Acetate (Ddavp) 20 mcg 1X ONCE IV ; Start 11/02/16 at 09:15; Stop 11/02/16 at 09:16; Status DC Active Scripts Active Midodrine Hcl 2.5 Mg Tablet 2.5 Mg PO PRN TID PRN Reported Gluco Burst (Dextrose) 37.5 Gm Gel..gram. 37.5 Gm PO PRN Glucagon Emergency Kit (Glucagon,Human Recombinant) 1 Mg Kit 1 Mg IM PRN Ferrous Sulfate 325 Mg Tablet 1 Tab PO DAILY DURAGESIC 50mcg/hr (Fentanyl) 1 Each Patch.td72 1 Patch TD Q72H Benadryl (Diphenhydramine Hcl) 25 Mg Capsule 25 Mg PO PRN Q4HRS PRN Midodrine Hcl 5 Mg Tablet 5 Mg PO BID Sodium Bicarbonate 650 Mg Tablet 650 Mg PO BID Potassium Chloride 10 Meq Tablet.er 10 Meq PO DAILY Keflex (Cephalexin) 500 Mg Capsule 500 Mg PO QID Humalog Kwikpen (Insulin Lispro) 200 Unit/1 Ml Insuln.pen 3 Unit SQ TIDAC Famotidine 20 Mg Tablet 20 Mg PO DAILY Oxycodone Hcl 15 Mg Tablet 1 Tab PO PRN Q4HRS PRN Phoslo (Calcium Acetate) 667 Mg Capsule 2 Cap PO TIDWMEALS Allopurinol 100 Mg Tablet 1 Tab PO DAILY Oyster Shell Calcium-Vit D Tab (Calcium Carbonate/Vitamin D2) 1 Each Tablet 1 Each PO TID Acidophilus Lactobacillus (Lactobacillus Acidophilus) 1 Each Capsule 1 Each PO DAILY Acetaminophen 325 Mg Tablet 650 Mg PO PRN Q4HRS PRN Atorvastatin Calcium 10 Mg Tablet 1 Tab PO DAILY Folic Acid 1 Mg Tablet 1 Mg PO DAILY Levothyroxine Sodium 25 Mcg Tablet 75 Mcg PO DAILYAC Vitals/I & O Vital Sign - Last 24 Hours 11/01/16 11/01/16 11/01/16 11/01/16 10:07 10:20 11:00 11:19 Temp 97.8 97.0 98.0 97.9 97.8 97.0 98.0 97.9 Pulse 66 63 64 65 Resp 20 20 18 B/P (MAP) 115/65 110/63 126/97 115/86 (96) Pulse Ox 99 O2 Delivery Nasal Cannula O2 Flow Rate 2.0 11/01/16 11/01/16 11/01/16 11/01/16 13:34 13:43 13:50 14:34 Temp 97.0 98.0 97.8 97.0 98.0 97.8 Pulse 63 63 60 70 Resp 20 20 18 B/P (MAP) 118/87 118/87 139/82 126/90 (102) Pulse Ox 99 O2 Delivery Nasal Cannula O2 Flow Rate 2.0 11/01/16 11/01/16 11/01/16 11/01/16 15:01 16:00 17:40 19:00 Temp 97.6 97.0 98.0 97.6 97.0 98.0 Pulse 59 59 61 61 Resp 18 20 20 20 B/P (MAP) 137/91 131/97 140/102 (115) 120/92 (101) Pulse Ox 98 95 O2 Delivery Nasal Cannula Nasal Cannula O2 Flow Rate 20.0 11/01/16 11/01/16 11/01/16 11/01/16 20:00 20:08 21:14 23:00 Pulse 53 Resp 17 20 B/P (MAP) 89/66 (74) Pulse Ox 95 95 95 O2 Delivery Nasal Cannula Nasal Cannula Nasal Cannula Nasal Cannula O2 Flow Rate 2.0 2.0 2.0 11/02/16 11/02/16 11/02/16 11/02/16 03:10 07:00 08:01 09:34 Temp 97.7 97.7 Pulse 69 63 63 Resp 20 18 B/P (MAP) 129/92 (104) 121/86 (98) 121/86 Pulse Ox 95 100 99 O2 Delivery Nasal Cannula Nasal Cannula Nasal Cannula O2 Flow Rate 2.0 3.0 Intake and Output 11/01/16 11/01/16 11/02/16 15:00 23:00 07:00 Intake Total 1064 ml 852 ml Output Total 2 ml Balance 1064 ml 850 ml Nutrition Consultation Dietary Evaluation: Recommendations by RD: Increase Calorie Intake, Protein supplementation Comments: Rec. continue novasource renal TID - 475kcal and 21.6g protein per serving Rec. nephrovite and 500mg vit c q day to aid wound healing Expected Outcomes/Goals: to meet >75% est nutr needs Malnutrition Findings: Food and Nutrition Intake (Mod: <75% est energy req 7days Body Fat Depletion (Non Severe: Mod to Severe Weight Status: Appropriate ANISA SCHMITT MD November 02, 2016 09:44
[2016-11-02] MEDS ORDERED: IV NORMAL SALINE 1000ML BAG 1,000 ML IV PRN (10:09)
[2016-11-02] MEDS ORDERED: DIALYSIS PATIENT. MC PRN ×2 (10:15)
[2016-11-02] MEDS ORDERED: ALBUMIN HUMAN 25% 200 ML IV PRN (11:00)
[2016-11-02] MEDS ORDERED: ALBUMIN HUMAN 25% 100 ML IV ONE ×2 (11:00)
--- NOTE | 2016-11-02 14:27 | PDOC ---
Subjective: Subjective: Seen during dialysis. Asked to be covered with blankets. Objective: Objective: Reviewed other notes. Vital Signs: Vital Signs Date Time Temp Pulse Resp B/P (MAP) Pulse Ox O2 Delivery O2 Flow Rate FiO2 11/02/16 09:34 63 121/86 11/02/16 08:01 99 Nasal Cannula 3.0 11/02/16 07:00 97.7 18 97.7 Labs: Laboratory Tests Test 11/01/16 15:44 11/01/16 20:26 11/02/16 06:00 11/02/16 07:18 Glucose (Fingerstick) 186 mg/dL 172 mg/dL 67 mg/dL White Blood Count 8.5 x10^3/uL Red Blood Count 2.39 x10^6/uL Hemoglobin 6.9 g/dL Hematocrit 20.6 % Mean Corpuscular Volume 86 fL Mean Corpuscular Hemoglobin 29 pg Mean Corpuscular Hemoglobin Concent 33 g/dL Red Cell Distribution Width 17.5 % Platelet Count 22 x10^3/uL Neutrophils (%) (Auto) 89 % Lymphocytes (%) (Auto) 8 % Monocytes (%) (Auto) 2 % Eosinophils (%) (Auto) 0 % Basophils (%) (Auto) 1 % Neutrophils # (Auto) 7.6 x10^3uL Lymphocytes # (Auto) 0.7 x10^3/uL Monocytes # (Auto) 0.2 x10^3/uL Eosinophils # (Auto) 0.0 x10^3/uL Basophils # (Auto) 0.0 x10^3/uL Prothrombin Time 21.7 SEC Prothromb Time International Ratio 2.0 Test 11/02/16 08:14 11/02/16 10:00 Glucose (Fingerstick) 92 mg/dL Fibrinogen 286 mg/dL PE: GEN: NAD, dialyzing ABD: distended, says "ouch" NEURO/PSYCH: ?confused A/P: Cirrhosis, recurrent ascites, Hep C -last paracentesis 5/2 Sepsis, ESRD on HD, anemia, thrombocytopenia -issues w/ bleeding from HD cath site, hematology following -- Has declined Hospice previously, plans to re-evaluate by palliative care. SARAVANAN KEARNEY November 02, 2016 14:27
[2016-11-02] MEDS: fentaNYL 50MCG/HR PATCH 1 PATCH PATCH.TD72 TD SCH (15:22)
--- NOTE | 2016-11-02 16:19 | PDOC ---
Renal-Progress Notes Subjective Notes Notes NONE, CONFUSED History of Present Illness Hx of present illness NO CHANGE Vitals Vitals Vital Signs Date Time Temp Pulse Resp B/P (MAP) Pulse Ox O2 Delivery O2 Flow Rate FiO2 11/02/16 15:22 63 121/86 11/02/16 15:22 99 Nasal Cannula 3.0 11/02/16 15:00 18 11/02/16 07:00 97.7 97.7 Weight Weight [ ] I.O. Intake and Output Intake and Output 11/02/16 07:00 Intake Total 1916 ml Output Total 2 ml Balance 1914 ml Intake Oral 1052 ml Blood Product IV Normal Saline Flush 864 ml Stool Total 2 ml # Bowel Movements 2 Labs Labs Laboratory Tests Test 11/01/16 20:26 11/02/16 06:00 11/02/16 07:18 11/02/16 08:14 Glucose (Fingerstick) 172 mg/dL (70-99) 67 mg/dL (70-99) 92 mg/dL (70-99) White Blood Count 8.5 x10^3/uL (4.0-11.0) Red Blood Count 2.39 x10^6/uL (4.30-5.70) Hemoglobin 6.9 g/dL (13.0-17.5) Hematocrit 20.6 % (39.0-53.0) Mean Corpuscular Volume 86 fL (79-100) Mean Corpuscular Hemoglobin 29 pg (25-35) Mean Corpuscular Hemoglobin Concent 33 g/dL (31-37) Red Cell Distribution Width 17.5 % (11.5-14.5) Platelet Count 22 x10^3/uL (140-400) Neutrophils (%) (Auto) 89 % (31-73) Lymphocytes (%) (Auto) 8 % (24-48) Monocytes (%) (Auto) 2 % (0-9) Eosinophils (%) (Auto) 0 % (0-3) Basophils (%) (Auto) 1 % (0-3) Neutrophils # (Auto) 7.6 x10^3uL (1.8-7.7) Lymphocytes # (Auto) 0.7 x10^3/uL (1.0-4.8) Monocytes # (Auto) 0.2 x10^3/uL (0.0-1.1) Eosinophils # (Auto) 0.0 x10^3/uL (0.0-0.7) Basophils # (Auto) 0.0 x10^3/uL (0.0-0.2) Prothrombin Time 21.7 SEC (11.7-14.0) Prothromb Time International Ratio 2.0 (0.8-1.1) Test 11/02/16 10:00 Fibrinogen 286 mg/dL (200-440) Micro Micro Microbiology 10/25/16 Blood Culture - Final, Complete NO GROWTH AFTER 5 DAYS 10/27/16 Gram Stain - Final, Complete 10/27/16 Gram Stain - Final, Complete Review of Systems Constitutional: yes: no symptom reported, alert Ears/Nose/Throat: Yes: no symptom reported Pulmonary: Yes no symptom reported Cardiovascular: Yes no symptom reported Gastrointestional: Yes: no symptom reported Musculoskeletal: Yes: no symptom reported Psychiatric/Neurological: Yes: no symptom reported Physical Exam General Appearance: no apparent distress Skin: warm Respiratory: decreased breath sounds Heart: S1S2 Abdomen: soft, bowel sounds present, distension Genitourinary: bladder flat Extremities: pulses present Neurology: alert, Ext weakness, confused Musculoskeletal: Other Assessment Assessment IMP SEPSIS COAGULOPATHY ANEMIA LIVER CIRRHOSIS ESRD PLAN HD TODAY UF TO [facility] ANTIBIOTICS SUPPORTIVE CARE ADRIAN PANCHAL MD November 02, 2016 16:19
--- NOTE | 2016-11-02 16:37 | PDOC2 ---
PALLIATIVE CARE Palliative Care Note Palliative Care Requested to re-evaluate for Hospice Care Patient seen at 0935, Alert, calm. Understands he has ESLD, ESRD, bleeding form insertion site catheter. Acknowledges platelet transfusions have limited benefit. Discussed options for care. Patient wishes to continue to do everything that can be done to be kept alive. Does not want option of comfort care. This is consistent with multiple discussion from PC. Full Code Full Aggressive Care. Will continue to monitor and provide more discussion if needed. NESTOR ALANIZ November 02, 2016 16:37
[2016-11-03] MEDS: VANCOMYCIN 125 MG/2.5 ML ORAL SOLUTION. PO SCH ×3 (00:26→21:24)
[2016-11-03] MEDS: CALCIUM CARB/VIT D3 500/200 TABLET. PO SCH ×4 (00:27→21:24)
[2016-11-03] MEDS: VITS A & D/LANOLIN TOPICAL OINTMENT 56GM TUBE. TP SCH ×4 (00:27→21:24)
[2016-11-03] MEDS: AMPICILLIN/SULBACTAM 1.5 GM in IV NORMAL SALINE 50ML 50 ML IV SCH ×2 (00:28→05:32)
[2016-11-03] MEDS: ATORVASTATIN CALCIUM 10 MG TABLET. PO SCH ×2 (00:29→21:24)
[2016-11-03 03:00] VITALS: BP 123/78
[2016-11-03] MEDS: DEXTROSE 50% 25 GM / 50ML DISP.SYRIN. IV PRN ×2 (05:40→12:39)
[2016-11-03 06:34] LABS: CALCIUM 8.1 mg/dL (8.5-10.1); CREATININE 2.2 mg/dL (0.7-1.3); GFR 37.4
[2016-11-03 07:00] VITALS: BP 125/86
[2016-11-03] MEDS: LEVOTHYROXINE 25 MCG TABLET. PO SCH (07:30)
[2016-11-03] MEDS: POTASSIUM CHLORIDE 10 MEQ TABLET.ER. PO SCH (08:00)
[2016-11-03] MEDS: CALCIUM ACETATE 667 MG CAPSULE PO SCH ×3 (08:00→16:34)
[2016-11-03] MEDS ORDERED: IV NORMAL SALINE 1000ML BAG 1,000 ML IV PRN (08:10)
[2016-11-03] MEDS ORDERED: 0.9 % SODIUM CHLORIDE 10 ML DISP.SYRIN. IV PRN ×2 (08:15)
[2016-11-03] MEDS ORDERED: DIALYSIS PATIENT. MC PRN ×2 (08:15)
[2016-11-03] MEDS ORDERED: ALBUMIN HUMAN 25% 200 ML IV PRN (08:15)
[2016-11-03] MEDS: FOLIC ACID 1 MG TABLET. PO SCH (08:36)
[2016-11-03] MEDS: FAMOTIDINE 20 MG TABLET. PO SCH (08:36)
[2016-11-03] MEDS: ALLOPURINOL 100 MG TABLET. PO SCH (08:36)
[2016-11-03] MEDS: FERROUS SULFATE 325 MG TABLET. PO SCH (08:36)
[2016-11-03] MEDS: LACTOBACILLUS ACIDOPH & BULGAR 1 TABLET. PO SCH (08:36)
[2016-11-03] MEDS: MIDODRINE 5 MG TABLET PO SCH ×2 (08:36→12:35)
--- NOTE | 2016-11-03 09:46 | PDOC ---
Infectious Disease Note Subjective Subjective Doing ok ROS ROS GEN: Denies fevers, chills, sweats HEENT: Denies blurred vision, sore throat CV: Denies chest pain RESP: Denies shortness of air, cough GI: Denies n/v/d NEURO: Denies confusion, dizziness MSK: Denies weakness, joint pain/swelling Vital Sign Vital Signs Vital Signs Date Time Temp Pulse Resp B/P (MAP) Pulse Ox O2 Delivery O2 Flow Rate FiO2 11/03/16 08:36 82 125/86 11/03/16 08:00 Nasal Cannula 2.0 11/03/16 07:00 97.7 18 91 97.7 Physical Exam PHYSICAL EXAM GENERAL: Propped up in bed, coop, NAD, In HD HEENT: OC/OP pink LUNGS: Clear HEART: S1S2, no gallop, no murmur ABD: Distended, BS present, soft, NT light palpation EXT: BLE edema ASE CERTIFIED 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 (10/30). area ecchymosis extending down right-side chest LUE-PICC/bandaged Labs Lab Laboratory Tests Test 11/02/16 10:00 11/02/16 15:59 11/02/16 21:47 11/02/16 23:40 Fibrinogen 286 mg/dL (200-440) Glucose (Fingerstick) 111 mg/dL (70-99) 73 mg/dL (70-99) 274 mg/dL (70-99) Test 11/03/16 05:34 11/03/16 05:37 11/03/16 05:52 11/03/16 05:55 Glucose (Fingerstick) 17 mg/dL (70-99) 47 mg/dL (70-99) 128 mg/dL (70-99) Sodium Level 140 mmol/L (136-145) Potassium Level 4.0 mmol/L (3.5-5.1) Chloride Level 102 mmol/L (98-107) Carbon Dioxide Level 31 mmol/L (21-32) Anion Gap 7 (6-14) Blood Urea Nitrogen 36 mg/dL (8-26) Creatinine 2.2 mg/dL (0.7-1.3) Estimated GFR (Cockcroft-Gault) 37.4 Glucose Level 22 mg/dL (70-99) Calcium Level 8.1 mg/dL (8.5-10.1) Objective Assessment Sepsis POA. Acinetobacter bacteremia (10/23) -RIJ tunneled HDC removed, 10/27. culture cath tip NGTD -Placement temp HDC (10/30. Bandemia H/o recent c. diff CKD on HD Cirrhosis of liver w/ refractory ascites DM with hypoglycemia Debility SVT Thrombocytopenia Plan Plan of Care Discontinue Unasyn Po vancomycin BID for prophylaxis for 14 days more then d/c Overall poor prognosis ID to sign off LEXA MAYFIELD MD November 03, 2016 09:46
--- NOTE | 2016-11-03 09:51 | PDOC ---
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 critical likely due to liver disease GERD Hyperlipidemia Hypotension hypothyroidism Cirrhosis with chronic ascites , HepC gout Cardiomyopathy prior C. diff. pressure ulcers. Plan Transfuse blood if hemoglobin drops < 7 monitor hemoglobin continue abx per ID albumin prn for hypotension ID and oncology following s/p FFP and vitamin k, still hypercoagulable due to liver disease Severe thrombocytopenia likely got worse with ESRD Desmopressin labs reviewed, Monitor hemoglobin after transfusion Prognosis very poor, d/w ethics team, Dr Livingston and other staff, pts prognosis is poor, he is full code, d/w other physician taking of care of patient, agree that his palliative approach is good option give his poor quality of life and multi system involvement. Sister is aware of his clinical condition and prognosis. total time spent 35 min. History of Present Illness History of Present Illness less bleeding no fever lying in bed Vitals Vitals Vital Signs Date Time Temp Pulse Resp B/P (MAP) Pulse Ox O2 Delivery O2 Flow Rate FiO2 11/03/16 08:36 82 125/86 11/03/16 08:00 Nasal Cannula 2.0 11/03/16 07:00 97.7 18 91 97.7 Physical Exam General: Alert, No acute distress, Other (Weak, malnourished.) Heart: Normal S1, Other (tachycardia, on midorinine gtt. ) Lungs: Clear, Other (diminished inspiratory effort. negative chest retractions and/or accessory muscle use. ) Abdomen: Other (ascites has again returned) Extremities: Other (3+ edema bilateral LE) Skin: No rashes, Other (Left ankle ulcer. Right shoulder ulcer. dressing placed. ) Labs LABS Laboratory Tests Test 11/02/16 10:00 11/02/16 15:59 11/02/16 21:47 11/02/16 23:40 Fibrinogen 286 mg/dL (200-440) Glucose (Fingerstick) 111 mg/dL (70-99) 73 mg/dL (70-99) 274 mg/dL (70-99) Test 11/03/16 05:34 11/03/16 05:37 11/03/16 05:52 11/03/16 05:55 Glucose (Fingerstick) 17 mg/dL (70-99) 47 mg/dL (70-99) 128 mg/dL (70-99) Sodium Level 140 mmol/L (136-145) Potassium Level 4.0 mmol/L (3.5-5.1) Chloride Level 102 mmol/L (98-107) Carbon Dioxide Level 31 mmol/L (21-32) Anion Gap 7 (6-14) Blood Urea Nitrogen 36 mg/dL (8-26) Creatinine 2.2 mg/dL (0.7-1.3) Estimated GFR (Cockcroft-Gault) 37.4 Glucose Level 22 mg/dL (70-99) Calcium Level 8.1 mg/dL (8.5-10.1) Assessment and Plan Assessmemt and Plan Problems Medical Problems: (1) Ascites Status: Acute (2) ESRD (end stage renal disease) on dialysis Status: Acute (3) SVT (supraventricular tachycardia) Status: Acute (4) Syncope Status: Acute Problems: Comment Review of Relevant I have reviewed the following items дмитрий (where applicable) has been applied. Labs Laboratory Tests Test 11/01/16 10:23 11/01/16 15:44 11/01/16 20:26 11/02/16 06:00 Glucose (Fingerstick) 162 mg/dL (70-99) 186 mg/dL (70-99) 172 mg/dL (70-99) White Blood Count 8.5 x10^3/uL (4.0-11.0) Red Blood Count 2.39 x10^6/uL (4.30-5.70) Hemoglobin 6.9 g/dL (13.0-17.5) Hematocrit 20.6 % (39.0-53.0) Mean Corpuscular Volume 86 fL (79-100) Mean Corpuscular Hemoglobin 29 pg (25-35) Mean Corpuscular Hemoglobin Concent 33 g/dL (31-37) Red Cell Distribution Width 17.5 % (11.5-14.5) Platelet Count 22 x10^3/uL (140-400) Neutrophils (%) (Auto) 89 % (31-73) Lymphocytes (%) (Auto) 8 % (24-48) Monocytes (%) (Auto) 2 % (0-9) Eosinophils (%) (Auto) 0 % (0-3) Basophils (%) (Auto) 1 % (0-3) Neutrophils # (Auto) 7.6 x10^3uL (1.8-7.7) Lymphocytes # (Auto) 0.7 x10^3/uL (1.0-4.8) Monocytes # (Auto) 0.2 x10^3/uL (0.0-1.1) Eosinophils # (Auto) 0.0 x10^3/uL (0.0-0.7) Basophils # (Auto) 0.0 x10^3/uL (0.0-0.2) Prothrombin Time 21.7 SEC (11.7-14.0) Prothromb Time International Ratio 2.0 (0.8-1.1) Test 11/02/16 07:18 11/02/16 08:14 11/02/16 10:00 11/02/16 15:59 Glucose (Fingerstick) 67 mg/dL (70-99) 92 mg/dL (70-99) 111 mg/dL (70-99) Fibrinogen 286 mg/dL (200-440) Test 11/02/16 21:47 11/02/16 23:40 11/03/16 05:34 11/03/16 05:37 Glucose (Fingerstick) 73 mg/dL (70-99) 274 mg/dL (70-99) 17 mg/dL (70-99) 47 mg/dL (70-99) Test 11/03/16 05:52 11/03/16 05:55 Glucose (Fingerstick) 128 mg/dL (70-99) Sodium Level 140 mmol/L (136-145) Potassium Level 4.0 mmol/L (3.5-5.1) Chloride Level 102 mmol/L (98-107) Carbon Dioxide Level 31 mmol/L (21-32) Anion Gap 7 (6-14) Blood Urea Nitrogen 36 mg/dL (8-26) Creatinine 2.2 mg/dL (0.7-1.3) Estimated GFR (Cockcroft-Gault) 37.4 Glucose Level 22 mg/dL (70-99) Calcium Level 8.1 mg/dL (8.5-10.1) Laboratory Tests Test 11/02/16 10:00 11/02/16 15:59 11/02/16 21:47 11/02/16 23:40 Fibrinogen 286 mg/dL (200-440) Glucose (Fingerstick) 111 mg/dL (70-99) 73 mg/dL (70-99) 274 mg/dL (70-99) Test 11/03/16 05:34 11/03/16 05:37 11/03/16 05:52 11/03/16 05:55 Glucose (Fingerstick) 17 mg/dL (70-99) 47 mg/dL (70-99) 128 mg/dL (70-99) Sodium Level 140 mmol/L (136-145) Potassium Level 4.0 mmol/L (3.5-5.1) Chloride Level 102 mmol/L (98-107) Carbon Dioxide Level 31 mmol/L (21-32) Anion Gap 7 (6-14) Blood Urea Nitrogen 36 mg/dL (8-26) Creatinine 2.2 mg/dL (0.7-1.3) Estimated GFR (Cockcroft-Gault) 37.4 Glucose Level 22 mg/dL (70-99) Calcium Level 8.1 mg/dL (8.5-10.1) Microbiology 10/25/16 Blood Culture - Final, Complete NO GROWTH AFTER 5 DAYS 10/27/16 Gram Stain - Final, Complete 10/27/16 Gram Stain - Final, Complete Medications Current Medications Sodium Chloride 500 ml @ 250 mls/hr 1X ONCE IV Last administered on 16:24; Start 10/23/16 at 16:15; Stop 10/23/16 at 18:14; Status DC Sodium Chloride 500 ml @ 250 mls/hr 1X ONCE IV Last administered on 17:15; Start 10/23/16 at 17:15; Stop 10/23/16 at 19:14; Status DC Diltiazem HCl (Cardizem) 5 mg 1X ONCE IVP Last administered on 10/23/16 19:12 ; Start 10/23/16 at 18:45; Stop 10/23/16 at 18:49; Status DC Diltiazem HCl 125 mg/Dextrose 125 ml @ 0 mls/hr 1X ONCE IV ; Start 10/23/16 at 18:45; Stop 10/23/16 at 19:59; Status DC Digoxin (Lanoxin) 250 mcg 1X ONCE IV Last administered on 10/23/16 22:36; Start 10/23/16 at 20:00; Stop 10/23/16 at 20:01; Status DC Ondansetron HCl (Zofran) 4 mg PRN Q8HRS PRN IV NAUSEA/VOMITING; Start 10/23/16 at 20:15; Stop 10/23/16 at 22:04; Status DC Acetaminophen (Tylenol) 650 mg PRN Q4HRS PRN PO FEVER; Start 10/23/16 at 20:15 ; Stop 10/23/16 at 22:04; Status DC Acetaminophen (Tylenol) 325 mg PRN Q6HRS PRN PO MILD PAIN / TEMP; Start at 22:00; Stop 10/25/16 at 11:09; Status DC Acetaminophen/ Hydrocodone Bitart (Lortab 5/325) 1 tab PRN Q6HRS PRN PO MODERATE TO SEVERE PAIN; Start 10/23/16 at 22:00 Hydralazine HCl (Apresoline) 10 mg PRN Q4HRS PRN IVP ELEVATED BP, SEE COMMENTS ; Start 10/23/16 at 22:00 Ondansetron HCl (Zofran) 4 mg PRN Q8HRS PRN IV NAUSEA/VOMITING; Start 10/23/16 at 22:00 Albuterol Sulfate (Ventolin Neb Soln) 2.5 mg PRN Q4HRS PRN NEB SHORTNESS OF BREATH; Start 10/23/16 at 22:00 Sodium Chloride 500 ml @ 500 mls/hr 1X ONCE IV Last administered on 22:34; Start 10/23/16 at 22:30; Stop 10/23/16 at 23:29; Status DC Pneumococcal Polyvalent Vaccine (Do NOT chart on this placeholder) 1 each PRN DAILY PRN [facility] UNABLE TO RESPOND; Start 10/24/16 at 00:15; Status Cancel Dextrose (Dextrose 50%-Water Syringe) 12.5 gm PRN Q15MIN PRN IV SEE COMMENTS Last administered on 10/25/16 21:40; Start 10/24/16 at 01:15; Stop 10/29/16 at 15:08; Status DC Dextrose (Dextrose 50%-Water Syringe) 25 gm STK-MED ONCE IV ; Start 10/24/16 at 01:05; Stop 10/24/16 at 01:06; Status DC Metoprolol Tartrate (Lopressor) 12.5 mg BID PO Last administered on 10/25/16 21:06; Start 10/24/16 at 09:30; Stop 10/26/16 at 12:27; Status DC Acetaminophen (Tylenol) 650 mg PRN Q4HRS PRN PO PAIN; Start 10/24/16 at 10:45 Allopurinol (Zyloprim) 100 mg DAILY PO Last administered on 11/02/16 09:34; Start 10/24/16 at 11:00 Atorvastatin Calcium (Lipitor) 10 mg DAILY PO Last administered on 10/24/16 13 :52; Start 10/24/16 at 11:00; Stop 10/25/16 at 14:11; Status DC Calcium Acetate (Phoslo) 1,334 mg TIDWMEALS PO Last administered on 11/02/16 17 :39; Start 10/24/16 at 12:00 Diphenhydramine HCl (Benadryl) 25 mg PRN Q4HRS PRN PO ITCHING; Start 10/24/16 at 10:45 Famotidine (Pepcid) 20 mg DAILY PO Last administered on 11/02/16 09:33; Start 10/24/16 at 11:00 Fentanyl (Duragesic 50mcg/ Hr Patch) 1 patch Q72H TD Last administered on 15:22; Start 10/24/16 at 11:00 Ferrous Sulfate (Feosol) 325 mg DAILY PO Last administered on 11/02/16 09:33; Start 10/24/16 at 11:00 Folic Acid (Folic Acid) 1 mg DAILY PO Last administered on 11/02/16 09:34; Start 10/24/16 at 11:00 Levothyroxine Sodium (Synthroid) 75 mcg DAILYAC PO Last administered on 09:33; Start 10/25/16 at 07:30 Midodrine (Proamatine) 2.5 mg PRN TID PRN PO BLOOD PRESSURE Last administered on 10/30/16 20:16; Start 10/24/16 at 10:45 Midodrine (Proamatine) 5 mg [id number] PO Last administered on 11/02/16 15:22; Start 10/24/16 at 14:00 Sodium Bicarbonate (Sodium Bicarbonate) 650 mg BID PO Last administered on 09:31; Start 10/24/16 at 11:00; Stop 10/29/16 at 11:34; Status DC Calcium/Vitamin D (Oscal D 500mg/ 200uts) 1 tab TID PO Last administered on 11/03 00:27; Start 10/24/16 at 14:00 Non-Formulary Medication 500 mg QID PO ; Start 10/24/16 at 13:00; Stop 10/24/16 at 13:00; Status DC Glucagon (Glucagen) 1 mg 1X PRN IM HYPOGLYCEMIA; Start 10/24/16 at 11:00; Stop 10/27/16 at 14:47; Status DC Insulin Aspart (Novolog) 3 units TIDAC SQ ; Start 10/24/16 at 11:30; Stop at 11:36; Status DC Lactobacillus Acidophilus (Bacid, Lou-Bid) 2 tab DAILY PO Last administered on 11/02/16 09:33; Start 10/24/16 at 11:00 Oxycodone HCl (Roxicodone) 5 mg PRN Q4HRS PRN PO PAIN Last administered on 20:08; Start 10/24/16 at 11:15 Potassium Chloride (Klor-Con) 10 meq [id number] PO Last administered on 09:33; Start 10/24/16 at 11:00 Vancomycin HCl 125 mg Q6HRS PO Last administered on 10/26/16 06:14; Start 10/24 at 12:00; Stop 10/26/16 at 11:21; Status DC Piperacillin Sod/ Tazobactam Sod (Zosyn Per Pharmacy) 1 each PRN DAILY PRN MC SEE COMMENTS; Start 10/24/16 at 10:45; Stop 10/26/16 at 13:22; Status DC Vancomycin HCl 1.5 gm/Sodium Chloride 500 ml @ 250 mls/hr 1X ONCE IV ; Start 10/24/16 at 11:15; Stop 10/24/16 at 11:15; Status DC Piperacillin Sod/ Tazobactam Sod 2.25 gm/Sodium Chloride 50 ml @ 100 mls/hr Q6HRS IV Last administered on 10/26/16 12:39; Start 10/24/16 at 12:00; Stop 10/26/16 at 13:23; Status DC Insulin Aspart (Novolog) 3 units TIDAC SQ ; Start 10/24/16 at 11:35; Stop at 07:44; Status DC Heparin Sodium (Porcine) 5,000 unit Q8HRS SQ Last administered on 10/25/16 06: 09; Start 10/24/16 at 22:00; Stop 10/25/16 at 14:04; Status DC Amino Acids/ Glycerin/ Electrolytes 1,000 ml @ 40 mls/hr Q24H IV Last administered on 10/26/16 04:09; Start 10/24/16 at 17:15; Stop 10/26/16 at 10:57; Status DC Dextrose (Dextrose 50%-Water Syringe) 25 gm PRN Q1HR PRN IV SEE COMMENTS Last administered on 11/03/16 05:40; Start 10/24/16 at 17:15 Glucose (Insta-Glucose) 15 gm STK-MED ONCE .ROUTE ; Start 10/24/16 at 17:44; Stop 10/24/16 at 17:45; Status DC Glucose (Insta-Glucose) 15 gm PRN Q15MIN PRN PO LOW BLOOD SUGAR Last administered on 10/24/16 17:50; Start 10/24/16 at 18:00 Sodium Polystyrene Sulfonate (Kayexalate) 15 gm 1X ONCE PO ; Start 10/25/16 at 07:00; Stop 10/25/16 at 07:01; Status DC Magnesium Sulfate/ Dextrose 50 ml @ 25 mls/hr PRN DAILY PRN IV for Mag < 1.7 on am labs Last administered on 10/28/16 09:11; Start 10/25/16 at 07:30 Calcium Gluconate (Calcium Gluconate) 1,000 mg Q2H IVP Last administered on 17:11; Start 10/25/16 at 07:30; Stop 10/25/16 at 11:31; Status DC Albumin Human 100 ml @ 100 mls/hr 1X ONCE IV Last administered on 10/25/16 08:32; Start 10/25/16 at 08:30; Stop 10/25/16 at 09:29; Status DC Albumin Human 50 ml @ 50 mls/hr 1X ONCE IV Last administered on 10/25/16 08: 30; Start 10/25/16 at 08:30; Stop 10/25/16 at 09:29; Status DC Info (PHARMACY MONITORING -- do not chart) 1 each PRN DAILY PRN MC SEE COMMENTS ; Start 10/25/16 at 08:45 Info (PHARMACY MONITORING -- do not chart) 1 each PRN DAILY PRN MC SEE COMMENTS ; Start 10/25/16 at 08:45; Status Cancel Sodium Chloride 1,000 ml @ 1,000 mls/hr Q1H PRN IV hypotension; Start 10/25/16 at 08:54; Stop 10/25/16 at 14:53; Status DC Albumin Human 200 ml @ 200 mls/hr 1X PRN PRN IV Hypotension Last administered on 10/25/16 09:08; Start 10/25/16 at 09:00; Stop 10/25/16 at 14:59; Status DC Sodium Chloride (Normal Saline Flush) 10 ml 1X PRN PRN IV AP catheter pack; Start 10/25/16 at 09:00; Stop 10/26/16 at 08:59; Status DC Sodium Chloride (Normal Saline Flush) 10 ml 1X PRN PRN IV [employer] catheter pack; Start 10/25/16 at 09:00; Stop 10/26/16 at 08:59; Status DC Info (PHARMACY MONITORING -- do not chart) 1 each PRN DAILY PRN MC SEE COMMENTS ; Start 10/25/16 at 09:00; Status Cancel Info (PHARMACY MONITORING -- do not chart) 1 each PRN DAILY PRN MC SEE COMMENTS ; Start 10/25/16 at 09:00; Stop 10/26/16 at 11:18; Status DC Atorvastatin Calcium (Lipitor) 10 mg QHS PO Last administered on 11/03/16 00:29 ; Start 10/26/16 at 21:00 Dextrose (Dextrose 50%-Water Syringe) 25 gm 1X ONCE IV Last administered on 22:00; Start 10/25/16 at 22:15; Stop 10/25/16 at 22:16; Status DC Dextrose 1,000 ml @ 80 mls/hr [id number] IV Last administered on 10/28/16 05:19; Start 10/26/16 at 11:00; Stop 10/28/16 at 13:57; Status DC Vancomycin HCl 125 mg BID PO Last administered on 11/03/16 00:26; Start at 21:00 Ampicillin Sodium/ Sulbactam Sodium 1.5 gm/Sodium Chloride 50 ml @ 100 mls/hr Q6HRS IV Last administered on 11/03/16 05:32; Start 10/26/16 at 18:00; Stop 11/03 at 09:45; Status DC Sodium Chloride 1,000 ml @ 1,000 mls/hr Q1H PRN IV hypotension; Start 10/27/16 at 10:11; Stop 10/27/16 at 16:10; Status DC Albumin Human 200 ml @ 200 mls/hr 1X PRN PRN IV Hypotension Last administered on 10/27/16 11:18; Start 10/27/16 at 10:15; Stop 10/27/16 at 16:14; Status DC Diphenhydramine HCl (Benadryl) 25 mg 1X PRN PRN IV ITCHING; Start 10/27/16 at 10 :15; Stop 10/27/16 at 19:00; Status DC Diphenhydramine HCl (Benadryl) 25 mg 1X PRN PRN IV ITCHING; Start 10/27/16 at 10 :15; Stop 10/27/16 at 19:00; Status DC Sodium Chloride 1,000 ml @ 400 mls/hr Q2H30M PRN IV PATENCY; Start 10/27/16 at 10:11; Stop 10/27/16 at 22:10; Status DC Info (PHARMACY MONITORING -- do not chart) 1 each PRN DAILY PRN MC SEE COMMENTS ; Start 10/27/16 at 10:15; Status Cancel Lidocaine/ Epinephrine (Xylocaine 1%-Epi 1:100,000) 20 ml STK-MED ONCE .ROUTE ; Start 10/27/16 at 14:41; Stop 10/27/16 at 14:42; Status DC Glucagon (Glucagen) 1 mg 1X PRN PRN IM HYPOGLYCEMIA; Start 10/27/16 at 14:47 Lidocaine/Sodium Bicarbonate (Buffered Lidocaine 1%) 4 ml 1X ONCE IJ ; Start at 15:30; Stop 10/27/16 at 15:59; Status DC Albumin Human 100 ml @ 100 mls/hr 1X ONCE IV Last administered on 10/27/16 15 :57; Start 10/27/16 at 16:00; Stop 10/27/16 at 16:59; Status DC Lidocaine/ Epinephrine (Xylocaine 1%-Epi 1:100,000) 7 ml 1X ONCE INJ ; Start at 16:00; Stop 10/27/16 at 16:01; Status DC Calcium Chloride 2000 mg/Sodium Chloride 120 ml @ 240 mls/hr 1X ONCE IV Last administered on 10/28/16 12:45; Start 10/28/16 at 11:45; Stop 10/28/16 at 12:14; Status DC Darbepoetin Aaron (Aranesp) 60 mcg [id number] SQ Last administered on 10/28/16 20: 46; Start 10/28/16 at 21:00 Vitamin A/Vitamin D (Vitamin A & D Ointment) 1 vanna TID TP Last administered on 11/03/16 08:36; Start 10/28/16 at 21:00 Tobramycin Sulfate 300 mg/ Sodium Chloride 107.5 ml @ 107.5 mls/ hr 1X ONCE IV Last administered on 10/29/16 13:07; Start 10/29/16 at 10:30; Stop 10/29/16 at 11:29; Status DC Albumin Human 100 ml @ 100 mls/hr Q1H IV Last administered on 10/29/16 16:00; Start 10/29/16 at 12:00; Stop 10/29/16 at 13:59; Status DC Dextrose 1,000 ml @ 50 mls/hr Q20H IV Last administered on 10/31/16 22:20; Start 10/30/16 at 11:15; Stop 11/01/16 at 11:46; Status DC Heparin Sodium (Porcine) (Heparin Sodium) 10,000 unit STK-MED ONCE .ROUTE ; Start 10/30/16 at 11:37; Stop 10/30/16 at 11:38; Status DC Lidocaine/Sodium Bicarbonate (Buffered Lidocaine 1%) 20 ml STK-MED ONCE IJ ; Start 10/30/16 at 11:38; Stop 10/30/16 at 11:39; Status DC Heparin Sodium/ Sodium Chloride 500 ml @ As Directed STK-MED ONCE .ROUTE ; Start 10/30/16 at 11:38; Stop 10/30/16 at 11:39; Status DC Lidocaine/Sodium Bicarbonate (Buffered Lidocaine 1%) 3 ml 1X ONCE IJ Last administered on 10/30/16 12:00; Start 10/30/16 at 12:00; Stop 10/30/16 at 12:06; Status DC Heparin Sodium (Porcine) (Heparin Sodium) 2,400 unit 1X ONCE INT CAT Last administered on 10/30/16 12:00; Start 10/30/16 at 12:00; Stop 10/30/16 at 12:06; Status DC Heparin Sodium/ Sodium Chloride 60 unit 1X ONCE IV Last administered on 12:00; Start 10/30/16 at 12:00; Stop 10/30/16 at 12:06; Status DC Iohexol (Omnipaque 300 Mg/ml) 50 ml STK-MED ONCE .ROUTE ; Start 10/30/16 at 12:19 ; Stop 10/30/16 at 12:20; Status DC Iohexol (Omnipaque 300 Mg/ml) 50 ml 1X ONCE IJ Last administered on 10/30/16 12:30; Start 10/30/16 at 12:30; Stop 10/30/16 at 12:31; Status DC Info (Do NOT chart on this entry -- for MONITORING) 1 each PRN DAILY PRN MC SEE COMMENTS; Start 10/30/16 at 12:30; Stop 11/01/16 at 12:29; Status DC Sodium Chloride 1,000 ml @ 1,000 mls/hr Q1H PRN IV hypotension; Start 10/30/16 at 15:50; Stop 10/30/16 at 21:49; Status DC Albumin Human 200 ml @ 200 mls/hr 1X PRN PRN IV Hypotension Last administered on 10/30/16 19:30; Start 10/30/16 at 16:00; Stop 10/30/16 at 21:59; Status DC Diphenhydramine HCl (Benadryl) 25 mg 1X PRN PRN IV ITCHING; Start 10/30/16 at 16 :00; Stop 10/31/16 at 15:59; Status DC Diphenhydramine HCl (Benadryl) 25 mg 1X PRN PRN IV ITCHING; Start 10/30/16 at 16 :00; Stop 10/31/16 at 15:59; Status DC Sodium Chloride (Normal Saline Flush) 10 ml 1X PRN PRN IV AP catheter pack; Start 10/30/16 at 16:00; Stop 10/31/16 at 15:59; Status DC Sodium Chloride (Normal Saline Flush) 10 ml 1X PRN PRN IV [employer] catheter pack; Start 10/30/16 at 16:00; Stop 10/31/16 at 15:59; Status DC Info (PHARMACY MONITORING -- do not chart) 1 each PRN DAILY PRN MC SEE COMMENTS ; Start 10/30/16 at 16:00 Gelatin (Gelfoam Size 12-7mm) 1 each 1X STAT TP Last administered on 17:22; Start 10/30/16 at 17:22; Stop 10/30/16 at 17:25; Status DC Gelatin (Gelfoam Size 100) 1 each STK-MED ONCE .ROUTE ; Start 10/30/16 at 17:29 ; Stop 10/30/16 at 17:30; Status DC Phytonadione (Mephyton) 10 mg 1X ONCE PO Last administered on 11/01/16 11:52; Start 11/01/16 at 09:45; Stop 11/01/16 at 09:46; Status DC Desmopressin Acetate (Ddavp) 20 mcg 1X ONCE IV Last administered on 11/02/16 09:15; Start 11/02/16 at 09:15; Stop 11/02/16 at 09:16; Status DC Sodium Chloride 1,000 ml @ 1,000 mls/hr Q1H PRN IV hypotension; Start 11/02/16 at 10:09; Stop 11/02/16 at 16:08; Status DC Info (PHARMACY MONITORING -- do not chart) 1 each PRN DAILY PRN MC SEE COMMENTS ; Start 11/02/16 at 10:15; Status UNV Info (PHARMACY MONITORING -- do not chart) 1 each PRN DAILY PRN MC SEE COMMENTS ; Start 11/02/16 at 10:15 Albumin Human 100 ml @ 100 mls/hr 1X ONCE IV Last administered on 11/02/16 11 :34; Start 11/02/16 at 11:00; Stop 11/02/16 at 11:59; Status DC Albumin Human 200 ml @ 200 mls/hr 1X PRN PRN IV Hypotension Last administered on 11/02/16 11:32; Start 11/02/16 at 11:00; Stop 11/02/16 at 16:59; Status DC Albumin Human 100 ml @ 100 mls/hr 1X ONCE IV Last administered on 11/02/16 15 :23; Start 11/02/16 at 11:00; Stop 11/02/16 at 11:59; Status DC Sodium Chloride 1,000 ml @ 1,000 mls/hr Q1H PRN IV hypotension; Start 11/03/16 at 08:10; Stop 11/03/16 at 14:09 Albumin Human 200 ml @ 200 mls/hr 1X PRN PRN IV Hypotension; Start 11/03/16 at 08:15; Stop 11/03/16 at 14:14 Sodium Chloride (Normal Saline Flush) 10 ml 1X PRN PRN IV AP catheter pack; Start 11/03/16 at 08:15; Stop 11/04/16 at 08:14 Sodium Chloride (Normal Saline Flush) 10 ml 1X PRN PRN IV [employer] catheter pack; Start 11/03/16 at 08:15; Stop 11/04/16 at 08:14 Info (PHARMACY MONITORING -- do not chart) 1 each PRN DAILY PRN MC SEE COMMENTS ; Start 11/03/16 at 08:15; Status UNV Info (PHARMACY MONITORING -- do not chart) 1 each PRN DAILY PRN MC SEE COMMENTS ; Start 11/03/16 at 08:15; Status UNV Active Scripts Active Midodrine Hcl 2.5 Mg Tablet 2.5 Mg PO PRN TID PRN Reported Gluco Burst (Dextrose) 37.5 Gm Gel..gram. 37.5 Gm PO PRN Glucagon Emergency Kit (Glucagon,Human Recombinant) 1 Mg Kit 1 Mg IM PRN Ferrous Sulfate 325 Mg Tablet 1 Tab PO DAILY DURAGESIC 50mcg/hr (Fentanyl) 1 Each Patch.td72 1 Patch TD Q72H Benadryl (Diphenhydramine Hcl) 25 Mg Capsule 25 Mg PO PRN Q4HRS PRN Midodrine Hcl 5 Mg Tablet 5 Mg PO BID Sodium Bicarbonate 650 Mg Tablet 650 Mg PO BID Potassium Chloride 10 Meq Tablet.er 10 Meq PO DAILY Keflex (Cephalexin) 500 Mg Capsule 500 Mg PO QID Humalog Kwikpen (Insulin Lispro) 200 Unit/1 Ml Insuln.pen 3 Unit SQ TIDAC Famotidine 20 Mg Tablet 20 Mg PO DAILY Oxycodone Hcl 15 Mg Tablet 1 Tab PO PRN Q4HRS PRN Phoslo (Calcium Acetate) 667 Mg Capsule 2 Cap PO TIDWMEALS Allopurinol 100 Mg Tablet 1 Tab PO DAILY Oyster Shell Calcium-Vit D Tab (Calcium Carbonate/Vitamin D2) 1 Each Tablet 1 Each PO TID Acidophilus Lactobacillus (Lactobacillus Acidophilus) 1 Each Capsule 1 Each PO DAILY Acetaminophen 325 Mg Tablet 650 Mg PO PRN Q4HRS PRN Atorvastatin Calcium 10 Mg Tablet 1 Tab PO DAILY Folic Acid 1 Mg Tablet 1 Mg PO DAILY Levothyroxine Sodium 25 Mcg Tablet 75 Mcg PO DAILYAC Vitals/I & O Vital Sign - Last 24 Hours 11/02/16 11/02/16 11/02/16 11/02/16 15:00 15:22 15:22 18:10 Temp 97.7 97.7 Pulse 65 63 104 Resp 18 16 B/P (MAP) 124/85 (98) 121/86 83/55 Pulse Ox 100 99 O2 Delivery Nasal Cannula Nasal Cannula O2 Flow Rate 2.0 3.0 11/02/16 11/02/16 11/02/16 11/02/16 18:28 19:00 19:28 20:00 Temp 97.7 98.4 95.3 97.7 98.4 95.3 Pulse 85 124 124 Resp 16 20 22 B/P (MAP) 92/67 100/78 (85) 111/82 Pulse Ox 90 O2 Delivery Room Air Nasal Cannula O2 Flow Rate 2.0 2.0 11/02/16 11/02/16 11/02/16 11/02/16 20:28 21:47 21:57 22:57 Temp 95.5 95.7 95.3 95.7 95.5 95.7 95.3 95.7 Pulse 94 81 90 87 Resp 20 20 20 20 B/P (MAP) 126/89 130/94 128/94 128/93 11/02/16 11/02/16 11/03/16 11/03/16 23:00 23:57 03:00 07:00 Temp 96.6 96.4 96.8 97.7 96.6 96.4 96.8 97.7 Pulse 84 88 82 82 Resp 20 22 20 18 B/P (MAP) 126/93 (104) 134/98 123/78 (93) 125/86 (99) Pulse Ox 93 98 91 O2 Delivery Nasal Cannula Nasal Cannula Nasal Cannula O2 Flow Rate 3.0 3.0 2.0 11/03/16 11/03/16 08:00 08:36 Pulse 82 B/P (MAP) 125/86 O2 Delivery Nasal Cannula O2 Flow Rate 2.0 Intake and Output 11/02/16 11/02/16 11/03/16 15:00 23:00 07:00 Intake Total 250 ml 410 ml 250 ml Output Total 0 ml Balance 250 ml 410 ml 250 ml Nutrition Consultation Dietary Evaluation: Recommendations by RD: Increase Calorie Intake, Protein supplementation Comments: Rec. continue novasource renal TID - 475kcal and 21.6g protein per serving nephrovite and 500mg vit c q day to aid wound healing Expected Outcomes/Goals: to meet >75% est nutr needs Malnutrition Findings: Food and Nutrition Intake (Mod: <75% est energy req 7days Body Fat Depletion (Non Severe: Mod to Severe Weight Status: Appropriate Fluid Accumulation (Severe): Severe ANISA SCHMITT MD November 03, 2016 09:51
[2016-11-03] MEDS ORDERED: DESMOPRESSIN 4 MCG/ML AMPUL. SQ ONE (10:15)
--- NOTE | 2016-11-03 10:18 | PDOC ---
Subjective: Subjective: Onc f/u- ESLD induced cytopenias, ongoing bleeding Pt at dialysis. Noninteractive Oozing still reported at catheter site Pt declined hospice again yesterday. Daily transfusions needed Objective: Vital Signs: Vital Signs Date Time Temp Pulse Resp B/P (MAP) Pulse Ox O2 Delivery O2 Flow Rate FiO2 11/03/16 08:36 82 125/86 11/03/16 08:00 Nasal Cannula 2.0 11/03/16 07:00 97.7 18 91 97.7 Physical Exam: Abdomen: Other (ascites has returned) Extremities: Other (2+ edema all extremities) General: Alert, Other (noninteractive) Lungs: Other (no resp distress) Labs/Imaging: CBC pending Fibrinogen remains elevated Assessment/Plan A/P: 1. Acute on chronic thrombocytopenia, due to ESLD with possible uremic platelet dysfunction. Transfusions unlikely to be beneficial with any platelets transfused immediately also being sequestered in spleen. Recommend only transfusing immediately before/ during any procedures and for active bleeding. 2. End-stage liver disease, hepatitis C, refractory ascites s/p frequent ongoing large volume paracenteses with underlying coagulopathy. 3. ESRD on HD. Dialyzing again today. BP has been more stable, nursing hoping to remove 2 L. 4. Oozing from HD catheter site. DDAVP ordered again today, but will not plan to keep repeating if no change. Fibrinogen remains normal. 5. Acute on chronic anemia.S/p PRBC yesterday. Pall care notes reviewed; repeatedly declines hospice. Cannot leave hospital with ongoing need for transfusions, which remain futile. Recommend ethics consult. D/W Dr. Ivan. MARIA C GARNETT DO November 03, 2016 10:18
[2016-11-03] MEDS ORDERED: DESMOPRESSIN 20 MCG in IV NORMAL SALINE 50ML 50 ML IV SCH (11:00)
--- NOTE | 2016-11-03 11:55 | PDOC ---
Renal-Progress Notes Subjective Notes Notes NOTHING History of Present Illness Hx of present illness NO CHANGE Vitals Vitals Vital Signs Date Time Temp Pulse Resp B/P (MAP) Pulse Ox O2 Delivery O2 Flow Rate FiO2 11/03/16 08:36 82 125/86 11/03/16 08:00 Nasal Cannula 2.0 11/03/16 07:00 97.7 18 91 97.7 Weight Weight [ ] I.O. Intake and Output Intake and Output 11/03/16 06:59 Intake Total 910 ml Output Total 0 ml Balance 910 ml Intake Oral 760 ml Blood Product IV Normal Saline Flush 150 ml Output Urine Total 0 ml # Bowel Movements 6 Labs Labs Laboratory Tests Test 11/02/16 15:59 11/02/16 21:47 11/02/16 23:40 11/03/16 05:34 Glucose (Fingerstick) 111 mg/dL (70-99) 73 mg/dL (70-99) 274 mg/dL (70-99) 17 mg/dL (70-99) Test 11/03/16 05:37 11/03/16 05:52 11/03/16 05:55 11/03/16 06:44 Glucose (Fingerstick) 47 mg/dL (70-99) 128 mg/dL (70-99) 152 mg/dL (70-99) Sodium Level 140 mmol/L (136-145) Potassium Level 4.0 mmol/L (3.5-5.1) Chloride Level 102 mmol/L (98-107) Carbon Dioxide Level 31 mmol/L (21-32) Anion Gap 7 (6-14) Blood Urea Nitrogen 36 mg/dL (8-26) Creatinine 2.2 mg/dL (0.7-1.3) Estimated GFR (Cockcroft-Gault) 37.4 Glucose Level 22 mg/dL (70-99) Calcium Level 8.1 mg/dL (8.5-10.1) Test 11/03/16 07:24 11/03/16 11:06 Glucose (Fingerstick) 95 mg/dL (70-99) 68 mg/dL (70-99) Micro Micro Microbiology 10/25/16 Blood Culture - Final, Complete NO GROWTH AFTER 5 DAYS 10/27/16 Gram Stain - Final, Complete 10/27/16 Gram Stain - Final, Complete Review of Systems Constitutional: yes: no symptom reported, alert Ears/Nose/Throat: Yes: no symptom reported Pulmonary: Yes no symptom reported Cardiovascular: Yes no symptom reported Gastrointestional: Yes: no symptom reported Musculoskeletal: Yes: no symptom reported Psychiatric/Neurological: Yes: no symptom reported Physical Exam General Appearance: no apparent distress Skin: warm Respiratory: decreased breath sounds Heart: S1S2 Abdomen: soft, bowel sounds present, distension Genitourinary: bladder flat Extremities: pulses present Neurology: alert, Ext weakness, confused Musculoskeletal: Other Assessment Assessment IMP SEPSIS COAGULOPATHY ANEMIA LIVER CIRRHOSIS ESRD ESSENTIALLY MSOF PLAN HD TODAY UF TO DW ANTIBIOTICS SUPPORTIVE CARE COMFORT CARE WOULD BE APPROPRIATE ADRIAN PANCHAL MD November 03, 2016 11:55
--- NOTE | 2016-11-03 12:39 | PDOC ---
G I PROGRESS NOTE Subjective "OK". Somewhat more communicative today, though no specific complaints. Physical Exam Ascites re-accumulating, but not tense. Review of Relevant I have reviewed the following items дмитрий (where applicable) has been applied. Labs Laboratory Tests Test 11/01/16 15:44 11/01/16 20:26 11/02/16 06:00 11/02/16 07:18 Glucose (Fingerstick) 186 mg/dL (70-99) 172 mg/dL (70-99) 67 mg/dL (70-99) White Blood Count 8.5 x10^3/uL (4.0-11.0) Red Blood Count 2.39 x10^6/uL (4.30-5.70) Hemoglobin 6.9 g/dL (13.0-17.5) Hematocrit 20.6 % (39.0-53.0) Mean Corpuscular Volume 86 fL (79-100) Mean Corpuscular Hemoglobin 29 pg (25-35) Mean Corpuscular Hemoglobin Concent 33 g/dL (31-37) Red Cell Distribution Width 17.5 % (11.5-14.5) Platelet Count 22 x10^3/uL (140-400) Neutrophils (%) (Auto) 89 % (31-73) Lymphocytes (%) (Auto) 8 % (24-48) Monocytes (%) (Auto) 2 % (0-9) Eosinophils (%) (Auto) 0 % (0-3) Basophils (%) (Auto) 1 % (0-3) Neutrophils # (Auto) 7.6 x10^3uL (1.8-7.7) Lymphocytes # (Auto) 0.7 x10^3/uL (1.0-4.8) Monocytes # (Auto) 0.2 x10^3/uL (0.0-1.1) Eosinophils # (Auto) 0.0 x10^3/uL (0.0-0.7) Basophils # (Auto) 0.0 x10^3/uL (0.0-0.2) Prothrombin Time 21.7 SEC (11.7-14.0) Prothromb Time International Ratio 2.0 (0.8-1.1) Test 11/02/16 08:14 11/02/16 10:00 11/02/16 15:59 11/02/16 21:47 Glucose (Fingerstick) 92 mg/dL (70-99) 111 mg/dL (70-99) 73 mg/dL (70-99) Fibrinogen 286 mg/dL (200-440) Test 11/02/16 23:40 11/03/16 05:34 11/03/16 05:37 11/03/16 05:52 Glucose (Fingerstick) 274 mg/dL (70-99) 17 mg/dL (70-99) 47 mg/dL (70-99) 128 mg/dL (70-99) Test 11/03/16 05:55 11/03/16 06:44 11/03/16 07:24 11/03/16 11:06 Sodium Level 140 mmol/L (136-145) Potassium Level 4.0 mmol/L (3.5-5.1) Chloride Level 102 mmol/L (98-107) Carbon Dioxide Level 31 mmol/L (21-32) Anion Gap 7 (6-14) Blood Urea Nitrogen 36 mg/dL (8-26) Creatinine 2.2 mg/dL (0.7-1.3) Estimated GFR (Cockcroft-Gault) 37.4 Glucose Level 22 mg/dL (70-99) Calcium Level 8.1 mg/dL (8.5-10.1) Glucose (Fingerstick) 152 mg/dL (70-99) 95 mg/dL (70-99) 68 mg/dL (70-99) Laboratory Tests Test 11/02/16 15:59 11/02/16 21:47 11/02/16 23:40 11/03/16 05:34 Glucose (Fingerstick) 111 mg/dL (70-99) 73 mg/dL (70-99) 274 mg/dL (70-99) 17 mg/dL (70-99) Test 11/03/16 05:37 11/03/16 05:52 11/03/16 05:55 11/03/16 06:44 Glucose (Fingerstick) 47 mg/dL (70-99) 128 mg/dL (70-99) 152 mg/dL (70-99) Sodium Level 140 mmol/L (136-145) Potassium Level 4.0 mmol/L (3.5-5.1) Chloride Level 102 mmol/L (98-107) Carbon Dioxide Level 31 mmol/L (21-32) Anion Gap 7 (6-14) Blood Urea Nitrogen 36 mg/dL (8-26) Creatinine 2.2 mg/dL (0.7-1.3) Estimated GFR (Cockcroft-Gault) 37.4 Glucose Level 22 mg/dL (70-99) Calcium Level 8.1 mg/dL (8.5-10.1) Test 11/03/16 07:24 11/03/16 11:06 Glucose (Fingerstick) 95 mg/dL (70-99) 68 mg/dL (70-99) Microbiology 10/25/16 Blood Culture - Final, Complete NO GROWTH AFTER 5 DAYS 10/27/16 Gram Stain - Final, Complete 10/27/16 Gram Stain - Final, Complete Medications Current Medications Sodium Chloride 500 ml @ 250 mls/hr 1X ONCE IV Last administered on 16:24; Start 10/23/16 at 16:15; Stop 10/23/16 at 18:14; Status DC Sodium Chloride 500 ml @ 250 mls/hr 1X ONCE IV Last administered on 17:15; Start 10/23/16 at 17:15; Stop 10/23/16 at 19:14; Status DC Diltiazem HCl (Cardizem) 5 mg 1X ONCE IVP Last administered on 10/23/16 19:12 ; Start 10/23/16 at 18:45; Stop 10/23/16 at 18:49; Status DC Diltiazem HCl 125 mg/Dextrose 125 ml @ 0 mls/hr 1X ONCE IV ; Start 10/23/16 at 18:45; Stop 10/23/16 at 19:59; Status DC Digoxin (Lanoxin) 250 mcg 1X ONCE IV Last administered on 10/23/16 22:36; Start 10/23/16 at 20:00; Stop 10/23/16 at 20:01; Status DC Ondansetron HCl (Zofran) 4 mg PRN Q8HRS PRN IV NAUSEA/VOMITING; Start 10/23/16 at 20:15; Stop 10/23/16 at 22:04; Status DC Acetaminophen (Tylenol) 650 mg PRN Q4HRS PRN PO FEVER; Start 10/23/16 at 20:15 ; Stop 10/23/16 at 22:04; Status DC Acetaminophen (Tylenol) 325 mg PRN Q6HRS PRN PO MILD PAIN / TEMP; Start at 22:00; Stop 10/25/16 at 11:09; Status DC Acetaminophen/ Hydrocodone Bitart (Lortab 5/325) 1 tab PRN Q6HRS PRN PO MODERATE TO SEVERE PAIN; Start 10/23/16 at 22:00 Hydralazine HCl (Apresoline) 10 mg PRN Q4HRS PRN IVP ELEVATED BP, SEE COMMENTS ; Start 10/23/16 at 22:00 Ondansetron HCl (Zofran) 4 mg PRN Q8HRS PRN IV NAUSEA/VOMITING; Start 10/23/16 at 22:00 Albuterol Sulfate (Ventolin Neb Soln) 2.5 mg PRN Q4HRS PRN NEB SHORTNESS OF BREATH; Start 10/23/16 at 22:00 Sodium Chloride 500 ml @ 500 mls/hr 1X ONCE IV Last administered on 22:34; Start 10/23/16 at 22:30; Stop 10/23/16 at 23:29; Status DC Pneumococcal Polyvalent Vaccine (Do NOT chart on this placeholder) 1 each PRN DAILY PRN MC UNABLE TO RESPOND; Start 10/24/16 at 00:15; Status Cancel Dextrose (Dextrose 50%-Water Syringe) 12.5 gm PRN Q15MIN PRN IV SEE COMMENTS Last administered on 10/25/16 21:40; Start 10/24/16 at 01:15; Stop 10/29/16 at 15:08; Status DC Dextrose (Dextrose 50%-Water Syringe) 25 gm STK-MED ONCE IV ; Start 10/24/16 at 01:05; Stop 10/24/16 at 01:06; Status DC Metoprolol Tartrate (Lopressor) 12.5 mg BID PO Last administered on 10/25/16 21:06; Start 10/24/16 at 09:30; Stop 10/26/16 at 12:27; Status DC Acetaminophen (Tylenol) 650 mg PRN Q4HRS PRN PO PAIN; Start 10/24/16 at 10:45 Allopurinol (Zyloprim) 100 mg DAILY PO Last administered on 11/02/16 09:34; Start 10/24/16 at 11:00 Atorvastatin Calcium (Lipitor) 10 mg DAILY PO Last administered on 10/24/16 13 :52; Start 10/24/16 at 11:00; Stop 10/25/16 at 14:11; Status DC Calcium Acetate (Phoslo) 1,334 mg TIDWMEALS PO Last administered on 11/03/16 12 :34; Start 10/24/16 at 12:00 Diphenhydramine HCl (Benadryl) 25 mg PRN Q4HRS PRN PO ITCHING; Start 10/24/16 at 10:45 Famotidine (Pepcid) 20 mg DAILY PO Last administered on 11/02/16 09:33; Start 10/24/16 at 11:00 Fentanyl (Duragesic 50mcg/ Hr Patch) 1 patch Q72H TD Last administered on 15:22; Start 10/24/16 at 11:00 Ferrous Sulfate (Feosol) 325 mg DAILY PO Last administered on 11/02/16 09:33; Start 10/24/16 at 11:00 Folic Acid (Folic Acid) 1 mg DAILY PO Last administered on 11/02/16 09:34; Start 10/24/16 at 11:00 Levothyroxine Sodium (Synthroid) 75 mcg DAILYAC PO Last administered on 09:33; Start 10/25/16 at 07:30 Midodrine (Proamatine) 2.5 mg PRN TID PRN PO BLOOD PRESSURE Last administered on 10/30/16 20:16; Start 10/24/16 at 10:45 Midodrine (Proamatine) 5 mg [id number] PO Last administered on 11/03/16 12:35; Start 10/24/16 at 14:00 Sodium Bicarbonate (Sodium Bicarbonate) 650 mg BID PO Last administered on 09:31; Start 10/24/16 at 11:00; Stop 10/29/16 at 11:34; Status DC Calcium/Vitamin D (Oscal D 500mg/ 200uts) 1 tab TID PO Last administered on 11/03 12:35; Start 10/24/16 at 14:00 Non-Formulary Medication 500 mg QID PO ; Start 10/24/16 at 13:00; Stop 10/24/16 at 13:00; Status DC Glucagon (Glucagen) 1 mg 1X PRN IM HYPOGLYCEMIA; Start 10/24/16 at 11:00; Stop 10/27/16 at 14:47; Status DC Insulin Aspart (Novolog) 3 units TIDAC SQ ; Start 10/24/16 at 11:30; Stop at 11:36; Status DC Lactobacillus Acidophilus (Bacid, Lou-Bid) 2 tab DAILY PO Last administered on 11/02/16 09:33; Start 10/24/16 at 11:00 Oxycodone HCl (Roxicodone) 5 mg PRN Q4HRS PRN PO PAIN Last administered on 20:08; Start 10/24/16 at 11:15 Potassium Chloride (Klor-Con) 10 meq [id number] PO Last administered on 09:33; Start 10/24/16 at 11:00 Vancomycin HCl 125 mg Q6HRS PO Last administered on 10/26/16 06:14; Start 10/24 at 12:00; Stop 10/26/16 at 11:21; Status DC Piperacillin Sod/ Tazobactam Sod (Zosyn Per Pharmacy) 1 each PRN DAILY PRN MC SEE COMMENTS; Start 10/24/16 at 10:45; Stop 10/26/16 at 13:22; Status DC Vancomycin HCl 1.5 gm/Sodium Chloride 500 ml @ 250 mls/hr 1X ONCE IV ; Start 10/24/16 at 11:15; Stop 10/24/16 at 11:15; Status DC Piperacillin Sod/ Tazobactam Sod 2.25 gm/Sodium Chloride 50 ml @ 100 mls/hr Q6HRS IV Last administered on 10/26/16 12:39; Start 10/24/16 at 12:00; Stop 10/26/16 at 13:23; Status DC Insulin Aspart (Novolog) 3 units TIDAC SQ ; Start 10/24/16 at 11:35; Stop at 07:44; Status DC Heparin Sodium (Porcine) 5,000 unit Q8HRS SQ Last administered on 10/25/16 06: 09; Start 10/24/16 at 22:00; Stop 10/25/16 at 14:04; Status DC Amino Acids/ Glycerin/ Electrolytes 1,000 ml @ 40 mls/hr Q24H IV Last administered on 10/26/16 04:09; Start 10/24/16 at 17:15; Stop 10/26/16 at 10:57; Status DC Dextrose (Dextrose 50%-Water Syringe) 25 gm PRN Q1HR PRN IV SEE COMMENTS Last administered on 11/03/16 05:40; Start 10/24/16 at 17:15 Glucose (Insta-Glucose) 15 gm STK-MED ONCE .ROUTE ; Start 10/24/16 at 17:44; Stop 10/24/16 at 17:45; Status DC Glucose (Insta-Glucose) 15 gm PRN Q15MIN PRN PO LOW BLOOD SUGAR Last administered on 10/24/16 17:50; Start 10/24/16 at 18:00 Sodium Polystyrene Sulfonate (Kayexalate) 15 gm 1X ONCE PO ; Start 10/25/16 at 07:00; Stop 10/25/16 at 07:01; Status DC Magnesium Sulfate/ Dextrose 50 ml @ 25 mls/hr PRN DAILY PRN IV for Mag < 1.7 on am labs Last administered on 10/28/16 09:11; Start 10/25/16 at 07:30 Calcium Gluconate (Calcium Gluconate) 1,000 mg Q2H IVP Last administered on 17:11; Start 10/25/16 at 07:30; Stop 10/25/16 at 11:31; Status DC Albumin Human 100 ml @ 100 mls/hr 1X ONCE IV Last administered on 10/25/16 08:32; Start 10/25/16 at 08:30; Stop 10/25/16 at 09:29; Status DC Albumin Human 50 ml @ 50 mls/hr 1X ONCE IV Last administered on 10/25/16 08: 30; Start 10/25/16 at 08:30; Stop 10/25/16 at 09:29; Status DC Info (PHARMACY MONITORING -- do not chart) 1 each PRN DAILY PRN MC SEE COMMENTS ; Start 10/25/16 at 08:45 Info (PHARMACY MONITORING -- do not chart) 1 each PRN DAILY PRN MC SEE COMMENTS ; Start 10/25/16 at 08:45; Status Cancel Sodium Chloride 1,000 ml @ 1,000 mls/hr Q1H PRN IV hypotension; Start 10/25/16 at 08:54; Stop 10/25/16 at 14:53; Status DC Albumin Human 200 ml @ 200 mls/hr 1X PRN PRN IV Hypotension Last administered on 10/25/16 09:08; Start 10/25/16 at 09:00; Stop 10/25/16 at 14:59; Status DC Sodium Chloride (Normal Saline Flush) 10 ml 1X PRN PRN IV AP catheter pack; Start 10/25/16 at 09:00; Stop 10/26/16 at 08:59; Status DC Sodium Chloride (Normal Saline Flush) 10 ml 1X PRN PRN IV FUNDRAISER catheter pack; Start 10/25/16 at 09:00; Stop 10/26/16 at 08:59; Status DC Info (PHARMACY MONITORING -- do not chart) 1 each PRN DAILY PRN MC SEE COMMENTS ; Start 10/25/16 at 09:00; Status Cancel Info (PHARMACY MONITORING -- do not chart) 1 each PRN DAILY PRN MC SEE COMMENTS ; Start 10/25/16 at 09:00; Stop 10/26/16 at 11:18; Status DC Atorvastatin Calcium (Lipitor) 10 mg QHS PO Last administered on 11/03/16 00:29 ; Start 10/26/16 at 21:00 Dextrose (Dextrose 50%-Water Syringe) 25 gm 1X ONCE IV Last administered on 22:00; Start 10/25/16 at 22:15; Stop 10/25/16 at 22:16; Status DC Dextrose 1,000 ml @ 80 mls/hr [id number] IV Last administered on 10/28/16 05:19; Start 10/26/16 at 11:00; Stop 10/28/16 at 13:57; Status DC Vancomycin HCl 125 mg BID PO Last administered on 11/03/16 12:34; Start at 21:00 Ampicillin Sodium/ Sulbactam Sodium 1.5 gm/Sodium Chloride 50 ml @ 100 mls/hr Q6HRS IV Last administered on 11/03/16 05:32; Start 10/26/16 at 18:00; Stop 11/03 at 09:45; Status DC Sodium Chloride 1,000 ml @ 1,000 mls/hr Q1H PRN IV hypotension; Start 10/27/16 at 10:11; Stop 10/27/16 at 16:10; Status DC Albumin Human 200 ml @ 200 mls/hr 1X PRN PRN IV Hypotension Last administered on 10/27/16 11:18; Start 10/27/16 at 10:15; Stop 10/27/16 at 16:14; Status DC Diphenhydramine HCl (Benadryl) 25 mg 1X PRN PRN IV ITCHING; Start 10/27/16 at 10 :15; Stop 10/27/16 at 19:00; Status DC Diphenhydramine HCl (Benadryl) 25 mg 1X PRN PRN IV ITCHING; Start 10/27/16 at 10 :15; Stop 10/27/16 at 19:00; Status DC Sodium Chloride 1,000 ml @ 400 mls/hr Q2H30M PRN IV PATENCY; Start 10/27/16 at 10:11; Stop 10/27/16 at 22:10; Status DC Info (PHARMACY MONITORING -- do not chart) 1 each PRN DAILY PRN MC SEE COMMENTS ; Start 10/27/16 at 10:15; Status Cancel Lidocaine/ Epinephrine (Xylocaine 1%-Epi 1:100,000) 20 ml STK-MED ONCE .ROUTE ; Start 10/27/16 at 14:41; Stop 10/27/16 at 14:42; Status DC Glucagon (Glucagen) 1 mg 1X PRN PRN IM HYPOGLYCEMIA; Start 10/27/16 at 14:47 Lidocaine/Sodium Bicarbonate (Buffered Lidocaine 1%) 4 ml 1X ONCE IJ ; Start at 15:30; Stop 10/27/16 at 15:59; Status DC Albumin Human 100 ml @ 100 mls/hr 1X ONCE IV Last administered on 10/27/16 15 :57; Start 10/27/16 at 16:00; Stop 10/27/16 at 16:59; Status DC Lidocaine/ Epinephrine (Xylocaine 1%-Epi 1:100,000) 7 ml 1X ONCE INJ ; Start at 16:00; Stop 10/27/16 at 16:01; Status DC Calcium Chloride 2000 mg/Sodium Chloride 120 ml @ 240 mls/hr 1X ONCE IV Last administered on 10/28/16 12:45; Start 10/28/16 at 11:45; Stop 10/28/16 at 12:14; Status DC Darbepoetin Aaron (Aranesp) 60 mcg [id number] SQ Last administered on 10/28/16 20: 46; Start 10/28/16 at 21:00 Vitamin A/Vitamin D (Vitamin A & D Ointment) 1 vanna TID TP Last administered on 11/03/16 12:35; Start 10/28/16 at 21:00 Tobramycin Sulfate 300 mg/ Sodium Chloride 107.5 ml @ 107.5 mls/ hr 1X ONCE IV Last administered on 10/29/16 13:07; Start 10/29/16 at 10:30; Stop 10/29/16 at 11:29; Status DC Albumin Human 100 ml @ 100 mls/hr Q1H IV Last administered on 10/29/16 16:00; Start 10/29/16 at 12:00; Stop 10/29/16 at 13:59; Status DC Dextrose 1,000 ml @ 50 mls/hr Q20H IV Last administered on 10/31/16 22:20; Start 10/30/16 at 11:15; Stop 11/01/16 at 11:46; Status DC Heparin Sodium (Porcine) (Heparin Sodium) 10,000 unit STK-MED ONCE .ROUTE ; Start 10/30/16 at 11:37; Stop 10/30/16 at 11:38; Status DC Lidocaine/Sodium Bicarbonate (Buffered Lidocaine 1%) 20 ml STK-MED ONCE IJ ; Start 10/30/16 at 11:38; Stop 10/30/16 at 11:39; Status DC Heparin Sodium/ Sodium Chloride 500 ml @ As Directed STK-MED ONCE .ROUTE ; Start 10/30/16 at 11:38; Stop 10/30/16 at 11:39; Status DC Lidocaine/Sodium Bicarbonate (Buffered Lidocaine 1%) 3 ml 1X ONCE IJ Last administered on 10/30/16 12:00; Start 10/30/16 at 12:00; Stop 10/30/16 at 12:06; Status DC Heparin Sodium (Porcine) (Heparin Sodium) 2,400 unit 1X ONCE INT CAT Last administered on 10/30/16 12:00; Start 10/30/16 at 12:00; Stop 10/30/16 at 12:06; Status DC Heparin Sodium/ Sodium Chloride 60 unit 1X ONCE IV Last administered on 12:00; Start 10/30/16 at 12:00; Stop 10/30/16 at 12:06; Status DC Iohexol (Omnipaque 300 Mg/ml) 50 ml STK-MED ONCE .ROUTE ; Start 10/30/16 at 12:19 ; Stop 10/30/16 at 12:20; Status DC Iohexol (Omnipaque 300 Mg/ml) 50 ml 1X ONCE IJ Last administered on 10/30/16 12:30; Start 10/30/16 at 12:30; Stop 10/30/16 at 12:31; Status DC Info (Do NOT chart on this entry -- for MONITORING) 1 each PRN DAILY PRN MC SEE COMMENTS; Start 10/30/16 at 12:30; Stop 11/01/16 at 12:29; Status DC Sodium Chloride 1,000 ml @ 1,000 mls/hr Q1H PRN IV hypotension; Start 10/30/16 at 15:50; Stop 10/30/16 at 21:49; Status DC Albumin Human 200 ml @ 200 mls/hr 1X PRN PRN IV Hypotension Last administered on 10/30/16 19:30; Start 10/30/16 at 16:00; Stop 10/30/16 at 21:59; Status DC Diphenhydramine HCl (Benadryl) 25 mg 1X PRN PRN IV ITCHING; Start 10/30/16 at 16 :00; Stop 10/31/16 at 15:59; Status DC Diphenhydramine HCl (Benadryl) 25 mg 1X PRN PRN IV ITCHING; Start 10/30/16 at 16 :00; Stop 10/31/16 at 15:59; Status DC Sodium Chloride (Normal Saline Flush) 10 ml 1X PRN PRN IV AP catheter pack; Start 10/30/16 at 16:00; Stop 10/31/16 at 15:59; Status DC Sodium Chloride (Normal Saline Flush) 10 ml 1X PRN PRN IV FUNDRAISER catheter pack; Start 10/30/16 at 16:00; Stop 10/31/16 at 15:59; Status DC Info (PHARMACY MONITORING -- do not chart) 1 each PRN DAILY PRN MC SEE COMMENTS ; Start 10/30/16 at 16:00 Gelatin (Gelfoam Size 12-7mm) 1 each 1X STAT TP Last administered on 17:22; Start 10/30/16 at 17:22; Stop 10/30/16 at 17:25; Status DC Gelatin (Gelfoam Size 100) 1 each STK-MED ONCE .ROUTE ; Start 10/30/16 at 17:29 ; Stop 10/30/16 at 17:30; Status DC Phytonadione (Mephyton) 10 mg 1X ONCE PO Last administered on 11/01/16 11:52; Start 11/01/16 at 09:45; Stop 11/01/16 at 09:46; Status DC Desmopressin Acetate (Ddavp) 20 mcg 1X ONCE IV Last administered on 11/02/16 09:15; Start 11/02/16 at 09:15; Stop 11/02/16 at 09:16; Status DC Sodium Chloride 1,000 ml @ 1,000 mls/hr Q1H PRN IV hypotension; Start 11/02/16 at 10:09; Stop 11/02/16 at 16:08; Status DC Info (PHARMACY MONITORING -- do not chart) 1 each PRN DAILY PRN MC SEE COMMENTS ; Start 11/02/16 at 10:15; Status UNV Info (PHARMACY MONITORING -- do not chart) 1 each PRN DAILY PRN MC SEE COMMENTS ; Start 11/02/16 at 10:15 Albumin Human 100 ml @ 100 mls/hr 1X ONCE IV Last administered on 11/02/16 11 :34; Start 11/02/16 at 11:00; Stop 11/02/16 at 11:59; Status DC Albumin Human 200 ml @ 200 mls/hr 1X PRN PRN IV Hypotension Last administered on 11/02/16 11:32; Start 11/02/16 at 11:00; Stop 11/02/16 at 16:59; Status DC Albumin Human 100 ml @ 100 mls/hr 1X ONCE IV Last administered on 11/02/16 15 :23; Start 11/02/16 at 11:00; Stop 11/02/16 at 11:59; Status DC Sodium Chloride 1,000 ml @ 1,000 mls/hr Q1H PRN IV hypotension; Start 11/03/16 at 08:10; Stop 11/03/16 at 14:09 Albumin Human 200 ml @ 200 mls/hr 1X PRN PRN IV Hypotension; Start 11/03/16 at 08:15; Stop 11/03/16 at 14:14 Sodium Chloride (Normal Saline Flush) 10 ml 1X PRN PRN IV AP catheter pack; Start 11/03/16 at 08:15; Stop 11/04/16 at 08:14 Sodium Chloride (Normal Saline Flush) 10 ml 1X PRN PRN IV FUNDRAISER catheter pack; Start 11/03/16 at 08:15; Stop 11/04/16 at 08:14 Info (PHARMACY MONITORING -- do not chart) 1 each PRN DAILY PRN MC SEE COMMENTS ; Start 11/03/16 at 08:15; Status UNV Info (PHARMACY MONITORING -- do not chart) 1 each PRN DAILY PRN MC SEE COMMENTS ; Start 11/03/16 at 08:15; Status UNV Desmopressin Acetate (Ddavp) 20 mcg 1X ONCE SQ ; Start 11/03/16 at 10:15; Stop 11/03/16 at 10:16; Status UNV Desmopressin Acetate 20 mcg/ Sodium Chloride 55 ml @ 110 mls/hr 1X IV ; Start 11/03/16 at 11:00 Active Scripts Active Midodrine Hcl 2.5 Mg Tablet 2.5 Mg PO PRN TID PRN Reported Gluco Burst (Dextrose) 37.5 Gm Gel..gram. 37.5 Gm PO PRN Glucagon Emergency Kit (Glucagon,Human Recombinant) 1 Mg Kit 1 Mg IM PRN Ferrous Sulfate 325 Mg Tablet 1 Tab PO DAILY DURAGESIC 50mcg/hr (Fentanyl) 1 Each Patch.td72 1 Patch TD Q72H Benadryl (Diphenhydramine Hcl) 25 Mg Capsule 25 Mg PO PRN Q4HRS PRN Midodrine Hcl 5 Mg Tablet 5 Mg PO BID Sodium Bicarbonate 650 Mg Tablet 650 Mg PO BID Potassium Chloride 10 Meq Tablet.er 10 Meq PO DAILY Keflex (Cephalexin) 500 Mg Capsule 500 Mg PO QID Humalog Kwikpen (Insulin Lispro) 200 Unit/1 Ml Insuln.pen 3 Unit SQ TIDAC Famotidine 20 Mg Tablet 20 Mg PO DAILY Oxycodone Hcl 15 Mg Tablet 1 Tab PO PRN Q4HRS PRN Phoslo (Calcium Acetate) 667 Mg Capsule 2 Cap PO TIDWMEALS Allopurinol 100 Mg Tablet 1 Tab PO DAILY Oyster Shell Calcium-Vit D Tab (Calcium Carbonate/Vitamin D2) 1 Each Tablet 1 Each PO TID Acidophilus Lactobacillus (Lactobacillus Acidophilus) 1 Each Capsule 1 Each PO DAILY Acetaminophen 325 Mg Tablet 650 Mg PO PRN Q4HRS PRN Atorvastatin Calcium 10 Mg Tablet 1 Tab PO DAILY Folic Acid 1 Mg Tablet 1 Mg PO DAILY Levothyroxine Sodium 25 Mcg Tablet 75 Mcg PO DAILYAC Vitals/I & O Vital Sign - Last 24 Hours 11/02/16 11/02/16 11/02/16 11/02/16 15:00 15:22 15:22 18:10 Temp 97.7 97.7 Pulse 65 63 104 Resp 18 16 B/P (MAP) 124/85 (98) 121/86 83/55 Pulse Ox 100 99 O2 Delivery Nasal Cannula Nasal Cannula O2 Flow Rate 2.0 3.0 11/02/16 11/02/16 11/02/16 11/02/16 18:28 19:00 19:28 20:00 Temp 97.7 98.4 95.3 97.7 98.4 95.3 Pulse 85 124 124 Resp 22 B/P (MAP) 92/67 100/78 (85) 111/82 Pulse Ox 90 O2 Delivery Room Air Nasal Cannula O2 Flow Rate 2.0 2.0 11/02/16 11/02/16 11/02/16 11/02/16 20:28 21:47 21:57 22:57 Temp 95.5 95.7 95.3 95.7 95.5 95.7 95.3 95.7 Pulse 94 81 90 87 Resp 20 20 20 20 B/P (MAP) 126/89 130/94 128/94 128/93 11/02/16 11/02/16 11/03/16 11/03/16 23:00 23:57 03:00 07:00 Temp 96.6 96.4 96.8 97.7 96.6 96.4 96.8 97.7 Pulse 84 88 82 82 Resp 20 18 B/P (MAP) 126/93 (104) 134/98 123/78 (93) 125/86 (99) Pulse Ox 93 98 91 O2 Delivery Nasal Cannula Nasal Cannula Nasal Cannula O2 Flow Rate 3.0 3.0 2.0 11/03/16 11/03/16 11/03/16 08:00 08:36 12:35 Pulse 82 82 B/P (MAP) 125/86 125/86 O2 Delivery Nasal Cannula O2 Flow Rate 2.0 Intake and Output 11/02/16 11/02/16 11/03/16 15:00 23:00 07:00 Intake Total 250 ml 410 ml 250 ml Output Total 0 ml Balance 250 ml 410 ml 250 ml Problem List Problems Medical Problems: (1) Ascites Status: Acute (2) ESRD (end stage renal disease) on dialysis Status: Acute (3) SVT (supraventricular tachycardia) Status: Acute (4) Syncope Status: Acute Assessment Stable GI-moe. Plan of Care: Continue current Tx, Mgmt Plan of Care Note If tense ascites, repeat tap. BANDAR PACHECO MD November 03, 2016 12:39
[2016-11-03 13:08] LABS: BASO % 1 % (0-3); EOS % 0 % (0-3); HEMATOCRIT 23.6 % (39.0-53.0); HEMOGLOBIN 7.8 g/dL (13.0-17.5); LYMPH # 0.6 x10^3/uL (1.0-4.8); LYMPH % 9 % (24-48); MEAN CORPUSCULAR HEMOGLOBIN 28 pg (25-35); MEAN CORPUSCULAR HGB CONC 33 g/dL (31-37); MEAN CORPUSCULAR VOLUME 84 fL (79-100); MONO % 3 % (0-9); NEUT % 87 % (31-73); RED CELL DISTRIBUTION WIDTH 17.8 % (11.5-14.5); WHITE BLOOD COUNT 6.9 x10^3/uL (4.0-11.0)
[2016-11-03 13:21] LABS: PLATELET COUNT 16 x10^3/uL (140-400)
--- NOTE | 2016-11-03 13:47 | RAD ---
Indication: Dyspnea. Comparison is made with prior study from 10/24/2016. Heart size is stable. Patchy bibasilar infiltrate/atelectasis persists. Upper lung mckeon also show some minimal patchy infiltrate which may be new. There is no effusion. Left upper extremity PICC line and right-sided dialysis line remain in place. Impression: Bibasilar infiltrates or atelectasis with perhaps minimal patchy upper lobe infiltrate or atelectasis since exam from 10/24/2016.
[2016-11-03 15:00] VITALS: BP 123/94
[2016-11-03 19:00] VITALS: BP 136/95
[2016-11-03] MEDS: DEXTROSE ORAL GEL 15 GM TUBE. PO PRN (22:01)
[2016-11-03 23:00] VITALS: BP 109/83
[2016-11-04 03:00] VITALS: BP 122/93
[2016-11-04 07:00] VITALS: BP 140/108
[2016-11-04] MEDS: LACTOBACILLUS ACIDOPH & BULGAR 1 TABLET. PO SCH (08:33)
[2016-11-04] MEDS: FAMOTIDINE 20 MG TABLET. PO SCH (08:33)
[2016-11-04] MEDS: LEVOTHYROXINE 25 MCG TABLET. PO SCH (08:33)
[2016-11-04] MEDS: CALCIUM CARB/VIT D3 500/200 TABLET. PO SCH ×3 (08:33→20:11)
[2016-11-04] MEDS: CALCIUM ACETATE 667 MG CAPSULE PO SCH ×3 (08:33→15:57)
[2016-11-04] MEDS: MIDODRINE 5 MG TABLET PO SCH ×2 (08:34→14:00)
[2016-11-04] MEDS: POTASSIUM CHLORIDE 10 MEQ TABLET.ER. PO SCH (08:35)
[2016-11-04] MEDS: ALLOPURINOL 100 MG TABLET. PO SCH (08:35)
[2016-11-04] MEDS: FOLIC ACID 1 MG TABLET. PO SCH (08:35)
[2016-11-04] MEDS: FERROUS SULFATE 325 MG TABLET. PO SCH (08:35)
[2016-11-04] MEDS: VANCOMYCIN 125 MG/2.5 ML ORAL SOLUTION. PO SCH ×2 (08:36→20:16)
[2016-11-04] MEDS: VITS A & D/LANOLIN TOPICAL OINTMENT 56GM TUBE. TP SCH ×3 (08:44→20:24)
--- NOTE | 2016-11-04 10:02 | PDOC ---
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 critical likely due to liver disease GERD Hyperlipidemia Hypotension hypothyroidism Cirrhosis with chronic ascites , HepC gout Cardiomyopathy prior C. diff. pressure ulcers. Plan Transfuse blood if hemoglobin drops < 7 monitor hemoglobin continue abx per ID albumin prn for hypotension ID and oncology following s/p FFP and vitamin k, still hypercoagulable due to liver disease Severe thrombocytopenia likely got worse with ESRD Desmopressin labs reviewed, Monitor hemoglobin after transfusion Prognosis very poor, DNR History of Present Illness History of Present Illness less bleeding no fever lying in bed Vitals Vitals Vital Signs Date Time Temp Pulse Resp B/P (MAP) Pulse Ox O2 Delivery O2 Flow Rate FiO2 11/04/16 08:34 70 140/108 11/04/16 07:00 97.7 18 90 Nasal Cannula 4.0 97.7 Physical Exam General: Alert, Other (noninteractive) Heart: Normal S1, Other (tachycardia, on midorinine gtt. ) Lungs: Clear, Other (diminished inspiratory effort. negative chest retractions and/or accessory muscle use. ) Abdomen: Other (ascites has returned) Extremities: Other (2+ edema all extremities) Skin: No rashes, Other (Left ankle ulcer. Right shoulder ulcer. dressing placed. ) Labs LABS Laboratory Tests Test 11/03/16 11:06 11/03/16 12:33 11/03/16 12:55 11/03/16 13:12 Glucose (Fingerstick) 68 mg/dL (70-99) 48 mg/dL (70-99) 132 mg/dL (70-99) White Blood Count 6.9 x10^3/uL (4.0-11.0) Red Blood Count 2.80 x10^6/uL (4.30-5.70) Hemoglobin 7.8 g/dL (13.0-17.5) Hematocrit 23.6 % (39.0-53.0) Mean Corpuscular Volume 84 fL (79-100) Mean Corpuscular Hemoglobin 28 pg (25-35) Mean Corpuscular Hemoglobin Concent 33 g/dL (31-37) Red Cell Distribution Width 17.8 % (11.5-14.5) Platelet Count 16 x10^3/uL (140-400) Neutrophils (%) (Auto) 87 % (31-73) Lymphocytes (%) (Auto) 9 % (24-48) Monocytes (%) (Auto) 3 % (0-9) Eosinophils (%) (Auto) 0 % (0-3) Basophils (%) (Auto) 1 % (0-3) Neutrophils # (Auto) 6.0 x10^3uL (1.8-7.7) Lymphocytes # (Auto) 0.6 x10^3/uL (1.0-4.8) Monocytes # (Auto) 0.2 x10^3/uL (0.0-1.1) Eosinophils # (Auto) 0.0 x10^3/uL (0.0-0.7) Basophils # (Auto) 0.0 x10^3/uL (0.0-0.2) Test 11/03/16 16:30 11/03/16 21:33 11/03/16 21:57 11/03/16 22:21 Glucose (Fingerstick) 84 mg/dL (70-99) 43 mg/dL (70-99) 45 mg/dL (70-99) 75 mg/dL (70-99) Test 11/04/16 02:51 11/04/16 06:11 11/04/16 07:28 Glucose (Fingerstick) 88 mg/dL (70-99) 69 mg/dL (70-99) 101 mg/dL (70-99) Assessment and Plan Assessmemt and Plan Problems Medical Problems: (1) Ascites Status: Acute (2) ESRD (end stage renal disease) on dialysis Status: Acute (3) SVT (supraventricular tachycardia) Status: Acute (4) Syncope Status: Acute Problems: Comment Review of Relevant I have reviewed the following items дмитрий (where applicable) has been applied. Labs Laboratory Tests Test 11/02/16 15:59 11/02/16 21:47 11/02/16 23:40 11/03/16 05:34 Glucose (Fingerstick) 111 mg/dL (70-99) 73 mg/dL (70-99) 274 mg/dL (70-99) 17 mg/dL (70-99) Test 11/03/16 05:37 11/03/16 05:52 11/03/16 05:55 11/03/16 06:44 Glucose (Fingerstick) 47 mg/dL (70-99) 128 mg/dL (70-99) 152 mg/dL (70-99) Sodium Level 140 mmol/L (136-145) Potassium Level 4.0 mmol/L (3.5-5.1) Chloride Level 102 mmol/L (98-107) Carbon Dioxide Level 31 mmol/L (21-32) Anion Gap 7 (6-14) Blood Urea Nitrogen 36 mg/dL (8-26) Creatinine 2.2 mg/dL (0.7-1.3) Estimated GFR (Cockcroft-Gault) 37.4 Glucose Level 22 mg/dL (70-99) Calcium Level 8.1 mg/dL (8.5-10.1) Test 11/03/16 07:24 11/03/16 11:06 11/03/16 12:33 11/03/16 12:55 Glucose (Fingerstick) 95 mg/dL (70-99) 68 mg/dL (70-99) 48 mg/dL (70-99) White Blood Count 6.9 x10^3/uL (4.0-11.0) Red Blood Count 2.80 x10^6/uL (4.30-5.70) Hemoglobin 7.8 g/dL (13.0-17.5) Hematocrit 23.6 % (39.0-53.0) Mean Corpuscular Volume 84 fL (79-100) Mean Corpuscular Hemoglobin 28 pg (25-35) Mean Corpuscular Hemoglobin Concent 33 g/dL (31-37) Red Cell Distribution Width 17.8 % (11.5-14.5) Platelet Count 16 x10^3/uL (140-400) Neutrophils (%) (Auto) 87 % (31-73) Lymphocytes (%) (Auto) 9 % (24-48) Monocytes (%) (Auto) 3 % (0-9) Eosinophils (%) (Auto) 0 % (0-3) Basophils (%) (Auto) 1 % (0-3) Neutrophils # (Auto) 6.0 x10^3uL (1.8-7.7) Lymphocytes # (Auto) 0.6 x10^3/uL (1.0-4.8) Monocytes # (Auto) 0.2 x10^3/uL (0.0-1.1) Eosinophils # (Auto) 0.0 x10^3/uL (0.0-0.7) Basophils # (Auto) 0.0 x10^3/uL (0.0-0.2) Test 11/03/16 13:12 11/03/16 16:30 11/03/16 21:33 11/03/16 21:57 Glucose (Fingerstick) 132 mg/dL (70-99) 84 mg/dL (70-99) 43 mg/dL (70-99) 45 mg/dL (70-99) Test 11/03/16 22:21 11/04/16 02:51 11/04/16 06:11 11/04/16 07:28 Glucose (Fingerstick) 75 mg/dL (70-99) 88 mg/dL (70-99) 69 mg/dL (70-99) 101 mg/dL (70-99) Laboratory Tests Test 11/03/16 11:06 11/03/16 12:33 11/03/16 12:55 11/03/16 13:12 Glucose (Fingerstick) 68 mg/dL (70-99) 48 mg/dL (70-99) 132 mg/dL (70-99) White Blood Count 6.9 x10^3/uL (4.0-11.0) Red Blood Count 2.80 x10^6/uL (4.30-5.70) Hemoglobin 7.8 g/dL (13.0-17.5) Hematocrit 23.6 % (39.0-53.0) Mean Corpuscular Volume 84 fL (79-100) Mean Corpuscular Hemoglobin 28 pg (25-35) Mean Corpuscular Hemoglobin Concent 33 g/dL (31-37) Red Cell Distribution Width 17.8 % (11.5-14.5) Platelet Count 16 x10^3/uL (140-400) Neutrophils (%) (Auto) 87 % (31-73) Lymphocytes (%) (Auto) 9 % (24-48) Monocytes (%) (Auto) 3 % (0-9) Eosinophils (%) (Auto) 0 % (0-3) Basophils (%) (Auto) 1 % (0-3) Neutrophils # (Auto) 6.0 x10^3uL (1.8-7.7) Lymphocytes # (Auto) 0.6 x10^3/uL (1.0-4.8) Monocytes # (Auto) 0.2 x10^3/uL (0.0-1.1) Eosinophils # (Auto) 0.0 x10^3/uL (0.0-0.7) Basophils # (Auto) 0.0 x10^3/uL (0.0-0.2) Test 11/03/16 16:30 11/03/16 21:33 11/03/16 21:57 11/03/16 22:21 Glucose (Fingerstick) 84 mg/dL (70-99) 43 mg/dL (70-99) 45 mg/dL (70-99) 75 mg/dL (70-99) Test 11/04/16 02:51 11/04/16 06:11 11/04/16 07:28 Glucose (Fingerstick) 88 mg/dL (70-99) 69 mg/dL (70-99) 101 mg/dL (70-99) Microbiology 10/25/16 Blood Culture - Final, Complete NO GROWTH AFTER 5 DAYS 10/27/16 Gram Stain - Final, Complete 10/27/16 Gram Stain - Final, Complete Medications Current Medications Sodium Chloride 500 ml @ 250 mls/hr 1X ONCE IV Last administered on 16:24; Start 10/23/16 at 16:15; Stop 10/23/16 at 18:14; Status DC Sodium Chloride 500 ml @ 250 mls/hr 1X ONCE IV Last administered on 17:15; Start 10/23/16 at 17:15; Stop 10/23/16 at 19:14; Status DC Diltiazem HCl (Cardizem) 5 mg 1X ONCE IVP Last administered on 10/23/16 19:12 ; Start 10/23/16 at 18:45; Stop 10/23/16 at 18:49; Status DC Diltiazem HCl 125 mg/Dextrose 125 ml @ 0 mls/hr 1X ONCE IV ; Start 10/23/16 at 18:45; Stop 10/23/16 at 19:59; Status DC Digoxin (Lanoxin) 250 mcg 1X ONCE IV Last administered on 10/23/16 22:36; Start 10/23/16 at 20:00; Stop 10/23/16 at 20:01; Status DC Ondansetron HCl (Zofran) 4 mg PRN Q8HRS PRN IV NAUSEA/VOMITING; Start 10/23/16 at 20:15; Stop 10/23/16 at 22:04; Status DC Acetaminophen (Tylenol) 650 mg PRN Q4HRS PRN PO FEVER; Start 10/23/16 at 20:15 ; Stop 10/23/16 at 22:04; Status DC Acetaminophen (Tylenol) 325 mg PRN Q6HRS PRN PO MILD PAIN / TEMP; Start at 22:00; Stop 10/25/16 at 11:09; Status DC Acetaminophen/ Hydrocodone Bitart (Lortab 5/325) 1 tab PRN Q6HRS PRN PO MODERATE TO SEVERE PAIN; Start 10/23/16 at 22:00 Hydralazine HCl (Apresoline) 10 mg PRN Q4HRS PRN IVP ELEVATED BP, SEE COMMENTS ; Start 10/23/16 at 22:00 Ondansetron HCl (Zofran) 4 mg PRN Q8HRS PRN IV NAUSEA/VOMITING; Start 10/23/16 at 22:00 Albuterol Sulfate (Ventolin Neb Soln) 2.5 mg PRN Q4HRS PRN NEB SHORTNESS OF BREATH; Start 10/23/16 at 22:00 Sodium Chloride 500 ml @ 500 mls/hr 1X ONCE IV Last administered on 22:34; Start 10/23/16 at 22:30; Stop 10/23/16 at 23:29; Status DC Pneumococcal Polyvalent Vaccine (Do NOT chart on this placeholder) 1 each PRN DAILY PRN [facility] UNABLE TO RESPOND; Start 10/24/16 at 00:15; Status Cancel Dextrose (Dextrose 50%-Water Syringe) 12.5 gm PRN Q15MIN PRN IV SEE COMMENTS Last administered on 10/25/16 21:40; Start 10/24/16 at 01:15; Stop 10/29/16 at 15:08; Status DC Dextrose (Dextrose 50%-Water Syringe) 25 gm STK-MED ONCE IV ; Start 10/24/16 at 01:05; Stop 10/24/16 at 01:06; Status DC Metoprolol Tartrate (Lopressor) 12.5 mg BID PO Last administered on 10/25/16 21:06; Start 10/24/16 at 09:30; Stop 10/26/16 at 12:27; Status DC Acetaminophen (Tylenol) 650 mg PRN Q4HRS PRN PO PAIN; Start 10/24/16 at 10:45 Allopurinol (Zyloprim) 100 mg DAILY PO Last administered on 11/04/16 08:35; Start 10/24/16 at 11:00 Atorvastatin Calcium (Lipitor) 10 mg DAILY PO Last administered on 10/24/16 13 :52; Start 10/24/16 at 11:00; Stop 10/25/16 at 14:11; Status DC Calcium Acetate (Phoslo) 1,334 mg TIDWMEALS PO Last administered on 11/04/16 08:33; Start 10/24/16 at 12:00 Diphenhydramine HCl (Benadryl) 25 mg PRN Q4HRS PRN PO ITCHING; Start 10/24/16 at 10:45 Famotidine (Pepcid) 20 mg DAILY PO Last administered on 11/04/16 08:33; Start 10/24/16 at 11:00 Fentanyl (Duragesic 50mcg/ Hr Patch) 1 patch Q72H TD Last administered on 15:22; Start 10/24/16 at 11:00 Ferrous Sulfate (Feosol) 325 mg DAILY PO Last administered on 11/04/16 08:35; Start 10/24/16 at 11:00 Folic Acid (Folic Acid) 1 mg DAILY PO Last administered on 11/04/16 08:35; Start 10/24/16 at 11:00 Levothyroxine Sodium (Synthroid) 75 mcg DAILYAC PO Last administered on 08:33; Start 10/25/16 at 07:30 Midodrine (Proamatine) 2.5 mg PRN TID PRN PO BLOOD PRESSURE Last administered on 10/30/16 20:16; Start 10/24/16 at 10:45 Midodrine (Proamatine) 5 mg [id number] PO Last administered on 11/04/16 08:34; Start 10/24/16 at 14:00 Sodium Bicarbonate (Sodium Bicarbonate) 650 mg BID PO Last administered on 09:31; Start 10/24/16 at 11:00; Stop 10/29/16 at 11:34; Status DC Calcium/Vitamin D (Oscal D 500mg/ 200uts) 1 tab TID PO Last administered on 08:33; Start 10/24/16 at 14:00 Non-Formulary Medication 500 mg QID PO ; Start 10/24/16 at 13:00; Stop 10/24/16 at 13:00; Status DC Glucagon (Glucagen) 1 mg 1X PRN IM HYPOGLYCEMIA; Start 10/24/16 at 11:00; Stop 10/27/16 at 14:47; Status DC Insulin Aspart (Novolog) 3 units TIDAC SQ ; Start 10/24/16 at 11:30; Stop at 11:36; Status DC Lactobacillus Acidophilus (Bacid, Lou-Bid) 2 tab DAILY PO Last administered on 11/04/16 08:33; Start 10/24/16 at 11:00 Oxycodone HCl (Roxicodone) 5 mg PRN Q4HRS PRN PO BREAKTHROUGH PAIN Last administered on 11/01/16 20:08; Start 10/24/16 at 11:15 Potassium Chloride (Klor-Con) 10 meq [id number] PO Last administered on 08:35; Start 10/24/16 at 11:00 Vancomycin HCl 125 mg Q6HRS PO Last administered on 10/26/16 06:14; Start 10/24 at 12:00; Stop 10/26/16 at 11:21; Status DC Piperacillin Sod/ Tazobactam Sod (Zosyn Per Pharmacy) 1 each PRN DAILY PRN MC SEE COMMENTS; Start 10/24/16 at 10:45; Stop 10/26/16 at 13:22; Status DC Vancomycin HCl 1.5 gm/Sodium Chloride 500 ml @ 250 mls/hr 1X ONCE IV ; Start 10/24/16 at 11:15; Stop 10/24/16 at 11:15; Status DC Piperacillin Sod/ Tazobactam Sod 2.25 gm/Sodium Chloride 50 ml @ 100 mls/hr Q6HRS IV Last administered on 10/26/16 12:39; Start 10/24/16 at 12:00; Stop 10/26/16 at 13:23; Status DC Insulin Aspart (Novolog) 3 units TIDAC SQ ; Start 10/24/16 at 11:35; Stop at 07:44; Status DC Heparin Sodium (Porcine) 5,000 unit Q8HRS SQ Last administered on 10/25/16 06: 09; Start 10/24/16 at 22:00; Stop 10/25/16 at 14:04; Status DC Amino Acids/ Glycerin/ Electrolytes 1,000 ml @ 40 mls/hr Q24H IV Last administered on 10/26/16 04:09; Start 10/24/16 at 17:15; Stop 10/26/16 at 10:57; Status DC Dextrose (Dextrose 50%-Water Syringe) 25 gm PRN Q1HR PRN IV SEE COMMENTS Last administered on 11/03/16 12:39; Start 10/24/16 at 17:15 Glucose (Insta-Glucose) 15 gm STK-MED ONCE .ROUTE ; Start 10/24/16 at 17:44; Stop 10/24/16 at 17:45; Status DC Glucose (Insta-Glucose) 15 gm PRN Q15MIN PRN PO LOW BLOOD SUGAR Last administered on 11/03/16 22:01; Start 10/24/16 at 18:00 Sodium Polystyrene Sulfonate (Kayexalate) 15 gm 1X ONCE PO ; Start 10/25/16 at 07:00; Stop 10/25/16 at 07:01; Status DC Magnesium Sulfate/ Dextrose 50 ml @ 25 mls/hr PRN DAILY PRN IV for Mag < 1.7 on am labs Last administered on 10/28/16 09:11; Start 10/25/16 at 07:30 Calcium Gluconate (Calcium Gluconate) 1,000 mg Q2H IVP Last administered on 17:11; Start 10/25/16 at 07:30; Stop 10/25/16 at 11:31; Status DC Albumin Human 100 ml @ 100 mls/hr 1X ONCE IV Last administered on 10/25/16 08:32; Start 10/25/16 at 08:30; Stop 10/25/16 at 09:29; Status DC Albumin Human 50 ml @ 50 mls/hr 1X ONCE IV Last administered on 10/25/16 08: 30; Start 10/25/16 at 08:30; Stop 10/25/16 at 09:29; Status DC Info (PHARMACY MONITORING -- do not chart) 1 each PRN DAILY PRN MC SEE COMMENTS ; Start 10/25/16 at 08:45; Status Cancel Info (PHARMACY MONITORING -- do not chart) 1 each PRN DAILY PRN MC SEE COMMENTS ; Start 10/25/16 at 08:45; Status Cancel Sodium Chloride 1,000 ml @ 1,000 mls/hr Q1H PRN IV hypotension; Start 10/25/16 at 08:54; Stop 10/25/16 at 14:53; Status DC Albumin Human 200 ml @ 200 mls/hr 1X PRN PRN IV Hypotension Last administered on 10/25/16 09:08; Start 10/25/16 at 09:00; Stop 10/25/16 at 14:59; Status DC Sodium Chloride (Normal Saline Flush) 10 ml 1X PRN PRN IV AP catheter pack; Start 10/25/16 at 09:00; Stop 10/26/16 at 08:59; Status DC Sodium Chloride (Normal Saline Flush) 10 ml 1X PRN PRN IV PANTS CLOSER catheter pack; Start 10/25/16 at 09:00; Stop 10/26/16 at 08:59; Status DC Info (PHARMACY MONITORING -- do not chart) 1 each PRN DAILY PRN MC SEE COMMENTS ; Start 10/25/16 at 09:00; Status Cancel Info (PHARMACY MONITORING -- do not chart) 1 each PRN DAILY PRN MC SEE COMMENTS ; Start 10/25/16 at 09:00; Stop 10/26/16 at 11:18; Status DC Atorvastatin Calcium (Lipitor) 10 mg QHS PO Last administered on 11/03/16 21:24 ; Start 10/26/16 at 21:00 Dextrose (Dextrose 50%-Water Syringe) 25 gm 1X ONCE IV Last administered on 22:00; Start 10/25/16 at 22:15; Stop 10/25/16 at 22:16; Status DC Dextrose 1,000 ml @ 80 mls/hr [id number] IV Last administered on 10/28/16 05:19; Start 10/26/16 at 11:00; Stop 10/28/16 at 13:57; Status DC Vancomycin HCl 125 mg BID PO Last administered on 11/04/16 08:36; Start at 21:00 Ampicillin Sodium/ Sulbactam Sodium 1.5 gm/Sodium Chloride 50 ml @ 100 mls/hr Q6HRS IV Last administered on 11/03/16 05:32; Start 10/26/16 at 18:00; Stop 11/03 at 09:45; Status DC Sodium Chloride 1,000 ml @ 1,000 mls/hr Q1H PRN IV hypotension; Start 10/27/16 at 10:11; Stop 10/27/16 at 16:10; Status DC Albumin Human 200 ml @ 200 mls/hr 1X PRN PRN IV Hypotension Last administered on 10/27/16 11:18; Start 10/27/16 at 10:15; Stop 10/27/16 at 16:14; Status DC Diphenhydramine HCl (Benadryl) 25 mg 1X PRN PRN IV ITCHING; Start 10/27/16 at 10 :15; Stop 10/27/16 at 19:00; Status DC Diphenhydramine HCl (Benadryl) 25 mg 1X PRN PRN IV ITCHING; Start 10/27/16 at 10 :15; Stop 10/27/16 at 19:00; Status DC Sodium Chloride 1,000 ml @ 400 mls/hr Q2H30M PRN IV PATENCY; Start 10/27/16 at 10:11; Stop 10/27/16 at 22:10; Status DC Info (PHARMACY MONITORING -- do not chart) 1 each PRN DAILY PRN MC SEE COMMENTS ; Start 10/27/16 at 10:15; Status Cancel Lidocaine/ Epinephrine (Xylocaine 1%-Epi 1:100,000) 20 ml STK-MED ONCE .ROUTE ; Start 10/27/16 at 14:41; Stop 10/27/16 at 14:42; Status DC Glucagon (Glucagen) 1 mg 1X PRN PRN IM HYPOGLYCEMIA; Start 10/27/16 at 14:47 Lidocaine/Sodium Bicarbonate (Buffered Lidocaine 1%) 4 ml 1X ONCE IJ ; Start at 15:30; Stop 10/27/16 at 15:59; Status DC Albumin Human 100 ml @ 100 mls/hr 1X ONCE IV Last administered on 10/27/16 15 :57; Start 10/27/16 at 16:00; Stop 10/27/16 at 16:59; Status DC Lidocaine/ Epinephrine (Xylocaine 1%-Epi 1:100,000) 7 ml 1X ONCE INJ ; Start at 16:00; Stop 10/27/16 at 16:01; Status DC Calcium Chloride 2000 mg/Sodium Chloride 120 ml @ 240 mls/hr 1X ONCE IV Last administered on 10/28/16 12:45; Start 10/28/16 at 11:45; Stop 10/28/16 at 12:14; Status DC Darbepoetin Aaron (Aranesp) 60 mcg [id number] SQ Last administered on 10/28/16 20: 46; Start 10/28/16 at 21:00 Vitamin A/Vitamin D (Vitamin A & D Ointment) 1 vanna TID TP Last administered on 11/04/16 08:44; Start 10/28/16 at 21:00 Tobramycin Sulfate 300 mg/ Sodium Chloride 107.5 ml @ 107.5 mls/ hr 1X ONCE IV Last administered on 10/29/16 13:07; Start 10/29/16 at 10:30; Stop 10/29/16 at 11:29; Status DC Albumin Human 100 ml @ 100 mls/hr Q1H IV Last administered on 10/29/16 16:00; Start 10/29/16 at 12:00; Stop 10/29/16 at 13:59; Status DC Dextrose 1,000 ml @ 50 mls/hr Q20H IV Last administered on 10/31/16 22:20; Start 10/30/16 at 11:15; Stop 11/01/16 at 11:46; Status DC Heparin Sodium (Porcine) (Heparin Sodium) 10,000 unit STK-MED ONCE .ROUTE ; Start 10/30/16 at 11:37; Stop 10/30/16 at 11:38; Status DC Lidocaine/Sodium Bicarbonate (Buffered Lidocaine 1%) 20 ml STK-MED ONCE IJ ; Start 10/30/16 at 11:38; Stop 10/30/16 at 11:39; Status DC Heparin Sodium/ Sodium Chloride 500 ml @ As Directed STK-MED ONCE .ROUTE ; Start 10/30/16 at 11:38; Stop 10/30/16 at 11:39; Status DC Lidocaine/Sodium Bicarbonate (Buffered Lidocaine 1%) 3 ml 1X ONCE IJ Last administered on 10/30/16 12:00; Start 10/30/16 at 12:00; Stop 10/30/16 at 12:06; Status DC Heparin Sodium (Porcine) (Heparin Sodium) 2,400 unit 1X ONCE INT CAT Last administered on 10/30/16 12:00; Start 10/30/16 at 12:00; Stop 10/30/16 at 12:06; Status DC Heparin Sodium/ Sodium Chloride 60 unit 1X ONCE IV Last administered on 12:00; Start 10/30/16 at 12:00; Stop 10/30/16 at 12:06; Status DC Iohexol (Omnipaque 300 Mg/ml) 50 ml STK-MED ONCE .ROUTE ; Start 10/30/16 at 12:19 ; Stop 10/30/16 at 12:20; Status DC Iohexol (Omnipaque 300 Mg/ml) 50 ml 1X ONCE IJ Last administered on 10/30/16 12:30; Start 10/30/16 at 12:30; Stop 10/30/16 at 12:31; Status DC Info (Do NOT chart on this entry -- for MONITORING) 1 each PRN DAILY PRN MC SEE COMMENTS; Start 10/30/16 at 12:30; Stop 11/01/16 at 12:29; Status DC Sodium Chloride 1,000 ml @ 1,000 mls/hr Q1H PRN IV hypotension; Start 10/30/16 at 15:50; Stop 10/30/16 at 21:49; Status DC Albumin Human 200 ml @ 200 mls/hr 1X PRN PRN IV Hypotension Last administered on 10/30/16 19:30; Start 10/30/16 at 16:00; Stop 10/30/16 at 21:59; Status DC Diphenhydramine HCl (Benadryl) 25 mg 1X PRN PRN IV ITCHING; Start 10/30/16 at 16 :00; Stop 10/31/16 at 15:59; Status DC Diphenhydramine HCl (Benadryl) 25 mg 1X PRN PRN IV ITCHING; Start 10/30/16 at 16 :00; Stop 10/31/16 at 15:59; Status DC Sodium Chloride (Normal Saline Flush) 10 ml 1X PRN PRN IV AP catheter pack; Start 10/30/16 at 16:00; Stop 10/31/16 at 15:59; Status DC Sodium Chloride (Normal Saline Flush) 10 ml 1X PRN PRN IV PANTS CLOSER catheter pack; Start 10/30/16 at 16:00; Stop 10/31/16 at 15:59; Status DC Info (PHARMACY MONITORING -- do not chart) 1 each PRN DAILY PRN MC SEE COMMENTS ; Start 10/30/16 at 16:00; Status Cancel Gelatin (Gelfoam Size 12-7mm) 1 each 1X STAT TP Last administered on 17:22; Start 10/30/16 at 17:22; Stop 10/30/16 at 17:25; Status DC Gelatin (Gelfoam Size 100) 1 each STK-MED ONCE .ROUTE ; Start 10/30/16 at 17:29 ; Stop 10/30/16 at 17:30; Status DC Phytonadione (Mephyton) 10 mg 1X ONCE PO Last administered on 11/01/16 11:52; Start 11/01/16 at 09:45; Stop 11/01/16 at 09:46; Status DC Desmopressin Acetate (Ddavp) 20 mcg 1X ONCE IV Last administered on 11/02/16 09:15; Start 11/02/16 at 09:15; Stop 11/02/16 at 09:16; Status DC Sodium Chloride 1,000 ml @ 1,000 mls/hr Q1H PRN IV hypotension; Start 11/02/16 at 10:09; Stop 11/02/16 at 16:08; Status DC Info (PHARMACY MONITORING -- do not chart) 1 each PRN DAILY PRN MC SEE COMMENTS ; Start 11/02/16 at 10:15; Status UNV Info (PHARMACY MONITORING -- do not chart) 1 each PRN DAILY PRN MC SEE COMMENTS ; Start 11/02/16 at 10:15 Albumin Human 100 ml @ 100 mls/hr 1X ONCE IV Last administered on 11/02/16 11 :34; Start 11/02/16 at 11:00; Stop 11/02/16 at 11:59; Status DC Albumin Human 200 ml @ 200 mls/hr 1X PRN PRN IV Hypotension Last administered on 11/02/16 11:32; Start 11/02/16 at 11:00; Stop 11/02/16 at 16:59; Status DC Albumin Human 100 ml @ 100 mls/hr 1X ONCE IV Last administered on 11/02/16 15 :23; Start 11/02/16 at 11:00; Stop 11/02/16 at 11:59; Status DC Sodium Chloride 1,000 ml @ 1,000 mls/hr Q1H PRN IV hypotension; Start 11/03/16 at 08:10; Stop 11/03/16 at 14:09; Status DC Albumin Human 200 ml @ 200 mls/hr 1X PRN PRN IV Hypotension; Start 11/03/16 at 08:15; Stop 11/03/16 at 14:14; Status DC Sodium Chloride (Normal Saline Flush) 10 ml 1X PRN PRN IV AP catheter pack; Start 11/03/16 at 08:15; Stop 11/04/16 at 08:14; Status DC Sodium Chloride (Normal Saline Flush) 10 ml 1X PRN PRN IV PANTS CLOSER catheter pack; Start 11/03/16 at 08:15; Stop 11/04/16 at 08:14; Status DC Info (PHARMACY MONITORING -- do not chart) 1 each PRN DAILY PRN MC SEE COMMENTS ; Start 11/03/16 at 08:15; Status UNV Info (PHARMACY MONITORING -- do not chart) 1 each PRN DAILY PRN MC SEE COMMENTS ; Start 11/03/16 at 08:15; Status UNV Desmopressin Acetate (Ddavp) 20 mcg 1X ONCE SQ ; Start 11/03/16 at 10:15; Stop 11/03/16 at 10:16; Status UNV Desmopressin Acetate 20 mcg/ Sodium Chloride 55 ml @ 110 mls/hr 1X IV ; Start 11/03/16 at 11:00 Active Scripts Active Midodrine Hcl 2.5 Mg Tablet 2.5 Mg PO PRN TID PRN Reported Gluco Burst (Dextrose) 37.5 Gm Gel..gram. 37.5 Gm PO PRN Glucagon Emergency Kit (Glucagon,Human Recombinant) 1 Mg Kit 1 Mg IM PRN Ferrous Sulfate 325 Mg Tablet 1 Tab PO DAILY DURAGESIC 50mcg/hr (Fentanyl) 1 Each Patch.td72 1 Patch TD Q72H Benadryl (Diphenhydramine Hcl) 25 Mg Capsule 25 Mg PO PRN Q4HRS PRN Midodrine Hcl 5 Mg Tablet 5 Mg PO BID Sodium Bicarbonate 650 Mg Tablet 650 Mg PO BID Potassium Chloride 10 Meq Tablet.er 10 Meq PO DAILY Keflex (Cephalexin) 500 Mg Capsule 500 Mg PO QID Humalog Kwikpen (Insulin Lispro) 200 Unit/1 Ml Insuln.pen 3 Unit SQ TIDAC Famotidine 20 Mg Tablet 20 Mg PO DAILY Oxycodone Hcl 15 Mg Tablet 1 Tab PO PRN Q4HRS PRN Phoslo (Calcium Acetate) 667 Mg Capsule 2 Cap PO TIDWMEALS Allopurinol 100 Mg Tablet 1 Tab PO DAILY Oyster Shell Calcium-Vit D Tab (Calcium Carbonate/Vitamin D2) 1 Each Tablet 1 Each PO TID Acidophilus Lactobacillus (Lactobacillus Acidophilus) 1 Each Capsule 1 Each PO DAILY Acetaminophen 325 Mg Tablet 650 Mg PO PRN Q4HRS PRN Atorvastatin Calcium 10 Mg Tablet 1 Tab PO DAILY Folic Acid 1 Mg Tablet 1 Mg PO DAILY Levothyroxine Sodium 25 Mcg Tablet 75 Mcg PO DAILYAC Vitals/I & O Vital Sign - Last 24 Hours 11/03/16 11/03/16 11/03/16 11/03/16 12:35 15:00 19:00 20:00 Temp 97.7 95.2 97.7 95.2 Pulse 82 74 64 Resp 18 20 B/P (MAP) 125/86 123/94 (104) 136/95 (109) Pulse Ox 91 98 O2 Delivery Nasal Cannula Nasal Cannula Nasal Cannula O2 Flow Rate 2.0 3.0 2.0 11/03/16 11/04/16 11/04/16 11/04/16 23:00 03:00 03:15 07:00 Temp 96.2 90.7 96.0 97.7 96.2 90.7 96.0 97.7 Pulse 73 66 70 Resp 20 20 18 B/P (MAP) 109/83 (92) 122/93 (103) 140/108 (119) Pulse Ox 92 93 90 O2 Delivery Nasal Cannula Nasal Cannula Nasal Cannula O2 Flow Rate 3.0 3.0 4.0 11/04/16 08:34 Pulse 70 B/P (MAP) 140/108 Intake and Output 11/03/16 11/03/16 11/04/16 15:00 23:00 07:00 Intake Total 250 ml 250 ml 660 ml Balance 250 ml 250 ml 660 ml Nutrition Consultation Dietary Evaluation: Recommendations by RD: Increase Calorie Intake, Protein supplementation Comments: Rec. continue novasource renal TID - 475kcal and 21.6g protein per serving nephrovite and 500mg vit c q day to aid wound healing Expected Outcomes/Goals: to meet >75% est nutr needs Malnutrition Findings: Food and Nutrition Intake (Mod: <75% est energy req 7days Body Fat Depletion (Non Severe: Mod to Severe Weight Status: Appropriate Fluid Accumulation (Severe): Severe ANISA SCHMITT MD November 04, 2016 10:02
--- NOTE | 2016-11-04 10:33 | PDOC ---
G I PROGRESS NOTE Subjective Little vocalization, but not unpleasant. No specific complaints. Physical Exam Lungs clear. RRR Reaccumulating ascites and approaching tense. Cachectic. Review of Relevant I have reviewed the following items дмитрий (where applicable) has been applied. Labs Laboratory Tests Test 11/02/16 15:59 11/02/16 21:47 11/02/16 23:40 11/03/16 05:34 Glucose (Fingerstick) 111 mg/dL (70-99) 73 mg/dL (70-99) 274 mg/dL (70-99) 17 mg/dL (70-99) Test 11/03/16 05:37 11/03/16 05:52 11/03/16 05:55 11/03/16 06:44 Glucose (Fingerstick) 47 mg/dL (70-99) 128 mg/dL (70-99) 152 mg/dL (70-99) Sodium Level 140 mmol/L (136-145) Potassium Level 4.0 mmol/L (3.5-5.1) Chloride Level 102 mmol/L (98-107) Carbon Dioxide Level 31 mmol/L (21-32) Anion Gap 7 (6-14) Blood Urea Nitrogen 36 mg/dL (8-26) Creatinine 2.2 mg/dL (0.7-1.3) Estimated GFR (Cockcroft-Gault) 37.4 Glucose Level 22 mg/dL (70-99) Calcium Level 8.1 mg/dL (8.5-10.1) Test 11/03/16 07:24 11/03/16 11:06 11/03/16 12:33 11/03/16 12:55 Glucose (Fingerstick) 95 mg/dL (70-99) 68 mg/dL (70-99) 48 mg/dL (70-99) White Blood Count 6.9 x10^3/uL (4.0-11.0) Red Blood Count 2.80 x10^6/uL (4.30-5.70) Hemoglobin 7.8 g/dL (13.0-17.5) Hematocrit 23.6 % (39.0-53.0) Mean Corpuscular Volume 84 fL (79-100) Mean Corpuscular Hemoglobin 28 pg (25-35) Mean Corpuscular Hemoglobin Concent 33 g/dL (31-37) Red Cell Distribution Width 17.8 % (11.5-14.5) Platelet Count 16 x10^3/uL (140-400) Neutrophils (%) (Auto) 87 % (31-73) Lymphocytes (%) (Auto) 9 % (24-48) Monocytes (%) (Auto) 3 % (0-9) Eosinophils (%) (Auto) 0 % (0-3) Basophils (%) (Auto) 1 % (0-3) Neutrophils # (Auto) 6.0 x10^3uL (1.8-7.7) Lymphocytes # (Auto) 0.6 x10^3/uL (1.0-4.8) Monocytes # (Auto) 0.2 x10^3/uL (0.0-1.1) Eosinophils # (Auto) 0.0 x10^3/uL (0.0-0.7) Basophils # (Auto) 0.0 x10^3/uL (0.0-0.2) Test 11/03/16 13:12 11/03/16 16:30 11/03/16 21:33 11/03/16 21:57 Glucose (Fingerstick) 132 mg/dL (70-99) 84 mg/dL (70-99) 43 mg/dL (70-99) 45 mg/dL (70-99) Test 11/03/16 22:21 11/04/16 02:51 11/04/16 06:11 11/04/16 07:28 Glucose (Fingerstick) 75 mg/dL (70-99) 88 mg/dL (70-99) 69 mg/dL (70-99) 101 mg/dL (70-99) Laboratory Tests Test 11/03/16 11:06 11/03/16 12:33 11/03/16 12:55 11/03/16 13:12 Glucose (Fingerstick) 68 mg/dL (70-99) 48 mg/dL (70-99) 132 mg/dL (70-99) White Blood Count 6.9 x10^3/uL (4.0-11.0) Red Blood Count 2.80 x10^6/uL (4.30-5.70) Hemoglobin 7.8 g/dL (13.0-17.5) Hematocrit 23.6 % (39.0-53.0) Mean Corpuscular Volume 84 fL (79-100) Mean Corpuscular Hemoglobin 28 pg (25-35) Mean Corpuscular Hemoglobin Concent 33 g/dL (31-37) Red Cell Distribution Width 17.8 % (11.5-14.5) Platelet Count 16 x10^3/uL (140-400) Neutrophils (%) (Auto) 87 % (31-73) Lymphocytes (%) (Auto) 9 % (24-48) Monocytes (%) (Auto) 3 % (0-9) Eosinophils (%) (Auto) 0 % (0-3) Basophils (%) (Auto) 1 % (0-3) Neutrophils # (Auto) 6.0 x10^3uL (1.8-7.7) Lymphocytes # (Auto) 0.6 x10^3/uL (1.0-4.8) Monocytes # (Auto) 0.2 x10^3/uL (0.0-1.1) Eosinophils # (Auto) 0.0 x10^3/uL (0.0-0.7) Basophils # (Auto) 0.0 x10^3/uL (0.0-0.2) Test 11/03/16 16:30 11/03/16 21:33 11/03/16 21:57 11/03/16 22:21 Glucose (Fingerstick) 84 mg/dL (70-99) 43 mg/dL (70-99) 45 mg/dL (70-99) 75 mg/dL (70-99) Test 11/04/16 02:51 11/04/16 06:11 11/04/16 07:28 Glucose (Fingerstick) 88 mg/dL (70-99) 69 mg/dL (70-99) 101 mg/dL (70-99) Microbiology 10/25/16 Blood Culture - Final, Complete NO GROWTH AFTER 5 DAYS 10/27/16 Gram Stain - Final, Complete 10/27/16 Gram Stain - Final, Complete Medications Current Medications Sodium Chloride 500 ml @ 250 mls/hr 1X ONCE IV Last administered on t 16:24; Start 10/23/16 at 16:15; Stop 10/23/16 at 18:14; Status DC Sodium Chloride 500 ml @ 250 mls/hr 1X ONCE IV Last administered on 17:15; Start 10/23/16 at 17:15; Stop 10/23/16 at 19:14; Status DC Diltiazem HCl (Cardizem) 5 mg 1X ONCE IVP Last administered on 10/23/16 19:12 ; Start 10/23/16 at 18:45; Stop 10/23/16 at 18:49; Status DC Diltiazem HCl 125 mg/Dextrose 125 ml @ 0 mls/hr 1X ONCE IV ; Start 10/23/16 at 18:45; Stop 10/23/16 at 19:59; Status DC Digoxin (Lanoxin) 250 mcg 1X ONCE IV Last administered on 10/23/16 22:36; Start 10/23/16 at 20:00; Stop 10/23/16 at 20:01; Status DC Ondansetron HCl (Zofran) 4 mg PRN Q8HRS PRN IV NAUSEA/VOMITING; Start 10/23/16 at 20:15; Stop 10/23/16 at 22:04; Status DC Acetaminophen (Tylenol) 650 mg PRN Q4HRS PRN PO FEVER; Start 10/23/16 at 20:15 ; Stop 10/23/16 at 22:04; Status DC Acetaminophen (Tylenol) 325 mg PRN Q6HRS PRN PO MILD PAIN / TEMP; Start at 22:00; Stop 10/25/16 at 11:09; Status DC Acetaminophen/ Hydrocodone Bitart (Lortab 5/325) 1 tab PRN Q6HRS PRN PO MODERATE TO SEVERE PAIN; Start 10/23/16 at 22:00 Hydralazine HCl (Apresoline) 10 mg PRN Q4HRS PRN IVP ELEVATED BP, SEE COMMENTS ; Start 10/23/16 at 22:00 Ondansetron HCl (Zofran) 4 mg PRN Q8HRS PRN IV NAUSEA/VOMITING; Start 10/23/16 at 22:00 Albuterol Sulfate (Ventolin Neb Soln) 2.5 mg PRN Q4HRS PRN NEB SHORTNESS OF BREATH; Start 10/23/16 at 22:00 Sodium Chloride 500 ml @ 500 mls/hr 1X ONCE IV Last administered on 22:34; Start 10/23/16 at 22:30; Stop 10/23/16 at 23:29; Status DC Pneumococcal Polyvalent Vaccine (Do NOT chart on this placeholder) 1 each PRN DAILY PRN MC UNABLE TO RESPOND; Start 10/24/16 at 00:15; Status Cancel Dextrose (Dextrose 50%-Water Syringe) 12.5 gm PRN Q15MIN PRN IV SEE COMMENTS Last administered on 10/25/16 21:40; Start 10/24/16 at 01:15; Stop 10/29/16 at 15:08; Status DC Dextrose (Dextrose 50%-Water Syringe) 25 gm STK-MED ONCE IV ; Start 10/24/16 at 01:05; Stop 10/24/16 at 01:06; Status DC Metoprolol Tartrate (Lopressor) 12.5 mg BID PO Last administered on 10/25/16 21:06; Start 10/24/16 at 09:30; Stop 10/26/16 at 12:27; Status DC Acetaminophen (Tylenol) 650 mg PRN Q4HRS PRN PO PAIN; Start 10/24/16 at 10:45 Allopurinol (Zyloprim) 100 mg DAILY PO Last administered on 11/04/16 08:35; Start 10/24/16 at 11:00 Atorvastatin Calcium (Lipitor) 10 mg DAILY PO Last administered on 10/24/16 13 :52; Start 10/24/16 at 11:00; Stop 10/25/16 at 14:11; Status DC Calcium Acetate (Phoslo) 1,334 mg TIDWMEALS PO Last administered on 11/04/16 08:33; Start 10/24/16 at 12:00 Diphenhydramine HCl (Benadryl) 25 mg PRN Q4HRS PRN PO ITCHING; Start 10/24/16 at 10:45 Famotidine (Pepcid) 20 mg DAILY PO Last administered on 11/04/16 08:33; Start 10/24/16 at 11:00 Fentanyl (Duragesic 50mcg/ Hr Patch) 1 patch Q72H TD Last administered on 15:22; Start 10/24/16 at 11:00 Ferrous Sulfate (Feosol) 325 mg DAILY PO Last administered on 11/04/16 08:35; Start 10/24/16 at 11:00 Folic Acid (Folic Acid) 1 mg DAILY PO Last administered on 11/04/16 08:35; Start 10/24/16 at 11:00 Levothyroxine Sodium (Synthroid) 75 mcg DAILYAC PO Last administered on 08:33; Start 10/25/16 at 07:30 Midodrine (Proamatine) 2.5 mg PRN TID PRN PO BLOOD PRESSURE Last administered on 10/30/16 20:16; Start 10/24/16 at 10:45 Midodrine (Proamatine) 5 mg [id number] PO Last administered on 11/04/16 08:34; Start 10/24/16 at 14:00 Sodium Bicarbonate (Sodium Bicarbonate) 650 mg BID PO Last administered on 09:31; Start 10/24/16 at 11:00; Stop 10/29/16 at 11:34; Status DC Calcium/Vitamin D (Oscal D 500mg/ 200uts) 1 tab TID PO Last administered on 08:33; Start 10/24/16 at 14:00 Non-Formulary Medication 500 mg QID PO ; Start 10/24/16 at 13:00; Stop 10/24/16 at 13:00; Status DC Glucagon (Glucagen) 1 mg 1X PRN IM HYPOGLYCEMIA; Start 10/24/16 at 11:00; Stop 10/27/16 at 14:47; Status DC Insulin Aspart (Novolog) 3 units TIDAC SQ ; Start 10/24/16 at 11:30; Stop at 11:36; Status DC Lactobacillus Acidophilus (Bacid, Lou-Bid) 2 tab DAILY PO Last administered on 11/04/16 08:33; Start 10/24/16 at 11:00 Oxycodone HCl (Roxicodone) 5 mg PRN Q4HRS PRN PO BREAKTHROUGH PAIN Last administered on 11/01/16 20:08; Start 10/24/16 at 11:15 Potassium Chloride (Klor-Con) 10 meq [id number] PO Last administered on 08:35; Start 10/24/16 at 11:00 Vancomycin HCl 125 mg Q6HRS PO Last administered on 10/26/16 06:14; Start 10/24 at 12:00; Stop 10/26/16 at 11:21; Status DC Piperacillin Sod/ Tazobactam Sod (Zosyn Per Pharmacy) 1 each PRN DAILY PRN MC SEE COMMENTS; Start 10/24/16 at 10:45; Stop 10/26/16 at 13:22; Status DC Vancomycin HCl 1.5 gm/Sodium Chloride 500 ml @ 250 mls/hr 1X ONCE IV ; Start 10/24/16 at 11:15; Stop 10/24/16 at 11:15; Status DC Piperacillin Sod/ Tazobactam Sod 2.25 gm/Sodium Chloride 50 ml @ 100 mls/hr Q6HRS IV Last administered on 10/26/16 12:39; Start 10/24/16 at 12:00; Stop 10/26/16 at 13:23; Status DC Insulin Aspart (Novolog) 3 units TIDAC SQ ; Start 10/24/16 at 11:35; Stop at 07:44; Status DC Heparin Sodium (Porcine) 5,000 unit Q8HRS SQ Last administered on 10/25/16 06: 09; Start 10/24/16 at 22:00; Stop 10/25/16 at 14:04; Status DC Amino Acids/ Glycerin/ Electrolytes 1,000 ml @ 40 mls/hr Q24H IV Last administered on 10/26/16 04:09; Start 10/24/16 at 17:15; Stop 10/26/16 at 10:57; Status DC Dextrose (Dextrose 50%-Water Syringe) 25 gm PRN Q1HR PRN IV SEE COMMENTS Last administered on 11/03/16 12:39; Start 10/24/16 at 17:15 Glucose (Insta-Glucose) 15 gm STK-MED ONCE .ROUTE ; Start 10/24/16 at 17:44; Stop 10/24/16 at 17:45; Status DC Glucose (Insta-Glucose) 15 gm PRN Q15MIN PRN PO LOW BLOOD SUGAR Last administered on 11/03/16 22:01; Start 10/24/16 at 18:00 Sodium Polystyrene Sulfonate (Kayexalate) 15 gm 1X ONCE PO ; Start 10/25/16 at 07:00; Stop 10/25/16 at 07:01; Status DC Magnesium Sulfate/ Dextrose 50 ml @ 25 mls/hr PRN DAILY PRN IV for Mag < 1.7 on am labs Last administered on 10/28/16 09:11; Start 10/25/16 at 07:30 Calcium Gluconate (Calcium Gluconate) 1,000 mg Q2H IVP Last administered on 17:11; Start 10/25/16 at 07:30; Stop 10/25/16 at 11:31; Status DC Albumin Human 100 ml @ 100 mls/hr 1X ONCE IV Last administered on 10/25/16 08:32; Start 10/25/16 at 08:30; Stop 10/25/16 at 09:29; Status DC Albumin Human 50 ml @ 50 mls/hr 1X ONCE IV Last administered on 10/25/16 08: 30; Start 10/25/16 at 08:30; Stop 10/25/16 at 09:29; Status DC Info (PHARMACY MONITORING -- do not chart) 1 each PRN DAILY PRN MC SEE COMMENTS ; Start 10/25/16 at 08:45; Status Cancel Info (PHARMACY MONITORING -- do not chart) 1 each PRN DAILY PRN MC SEE COMMENTS ; Start 10/25/16 at 08:45; Status Cancel Sodium Chloride 1,000 ml @ 1,000 mls/hr Q1H PRN IV hypotension; Start 10/25/16 at 08:54; Stop 10/25/16 at 14:53; Status DC Albumin Human 200 ml @ 200 mls/hr 1X PRN PRN IV Hypotension Last administered on 10/25/16 09:08; Start 10/25/16 at 09:00; Stop 10/25/16 at 14:59; Status DC Sodium Chloride (Normal Saline Flush) 10 ml 1X PRN PRN IV AP catheter pack; Start 10/25/16 at 09:00; Stop 10/26/16 at 08:59; Status DC Sodium Chloride (Normal Saline Flush) 10 ml 1X PRN PRN IV REHABILITATION CONSULTANT catheter pack; Start 10/25/16 at 09:00; Stop 10/26/16 at 08:59; Status DC Info (PHARMACY MONITORING -- do not chart) 1 each PRN DAILY PRN MC SEE COMMENTS ; Start 10/25/16 at 09:00; Status Cancel Info (PHARMACY MONITORING -- do not chart) 1 each PRN DAILY PRN MC SEE COMMENTS ; Start 10/25/16 at 09:00; Stop 10/26/16 at 11:18; Status DC Atorvastatin Calcium (Lipitor) 10 mg QHS PO Last administered on 11/03/16 21:24 ; Start 10/26/16 at 21:00 Dextrose (Dextrose 50%-Water Syringe) 25 gm 1X ONCE IV Last administered on 22:00; Start 10/25/16 at 22:15; Stop 10/25/16 at 22:16; Status DC Dextrose 1,000 ml @ 80 mls/hr [id number] IV Last administered on 10/28/16 05:19; Start 10/26/16 at 11:00; Stop 10/28/16 at 13:57; Status DC Vancomycin HCl 125 mg BID PO Last administered on 11/04/16 08:36; Start at 21:00 Ampicillin Sodium/ Sulbactam Sodium 1.5 gm/Sodium Chloride 50 ml @ 100 mls/hr Q6HRS IV Last administered on 11/03/16 05:32; Start 10/26/16 at 18:00; Stop 11/03 at 09:45; Status DC Sodium Chloride 1,000 ml @ 1,000 mls/hr Q1H PRN IV hypotension; Start 10/27/16 at 10:11; Stop 10/27/16 at 16:10; Status DC Albumin Human 200 ml @ 200 mls/hr 1X PRN PRN IV Hypotension Last administered on 10/27/16 11:18; Start 10/27/16 at 10:15; Stop 10/27/16 at 16:14; Status DC Diphenhydramine HCl (Benadryl) 25 mg 1X PRN PRN IV ITCHING; Start 10/27/16 at 10 :15; Stop 10/27/16 at 19:00; Status DC Diphenhydramine HCl (Benadryl) 25 mg 1X PRN PRN IV ITCHING; Start 10/27/16 at 10 :15; Stop 10/27/16 at 19:00; Status DC Sodium Chloride 1,000 ml @ 400 mls/hr Q2H30M PRN IV PATENCY; Start 10/27/16 at 10:11; Stop 10/27/16 at 22:10; Status DC Info (PHARMACY MONITORING -- do not chart) 1 each PRN DAILY PRN MC SEE COMMENTS ; Start 10/27/16 at 10:15; Status Cancel Lidocaine/ Epinephrine (Xylocaine 1%-Epi 1:100,000) 20 ml STK-MED ONCE .ROUTE ; Start 10/27/16 at 14:41; Stop 10/27/16 at 14:42; Status DC Glucagon (Glucagen) 1 mg 1X PRN PRN IM HYPOGLYCEMIA; Start 10/27/16 at 14:47 Lidocaine/Sodium Bicarbonate (Buffered Lidocaine 1%) 4 ml 1X ONCE IJ ; Start at 15:30; Stop 10/27/16 at 15:59; Status DC Albumin Human 100 ml @ 100 mls/hr 1X ONCE IV Last administered on 10/27/16 15 :57; Start 10/27/16 at 16:00; Stop 10/27/16 at 16:59; Status DC Lidocaine/ Epinephrine (Xylocaine 1%-Epi 1:100,000) 7 ml 1X ONCE INJ ; Start at 16:00; Stop 10/27/16 at 16:01; Status DC Calcium Chloride 2000 mg/Sodium Chloride 120 ml @ 240 mls/hr 1X ONCE IV Last administered on 10/28/16 12:45; Start 10/28/16 at 11:45; Stop 10/28/16 at 12:14; Status DC Darbepoetin Aaron (Aranesp) 60 mcg [id number] SQ Last administered on 10/28/16 20: 46; Start 10/28/16 at 21:00 Vitamin A/Vitamin D (Vitamin A & D Ointment) 1 vanna TID TP Last administered on 11/04/16 08:44; Start 10/28/16 at 21:00 Tobramycin Sulfate 300 mg/ Sodium Chloride 107.5 ml @ 107.5 mls/ hr 1X ONCE IV Last administered on 10/29/16 13:07; Start 10/29/16 at 10:30; Stop 10/29/16 at 11:29; Status DC Albumin Human 100 ml @ 100 mls/hr Q1H IV Last administered on 10/29/16 16:00; Start 10/29/16 at 12:00; Stop 10/29/16 at 13:59; Status DC Dextrose 1,000 ml @ 50 mls/hr Q20H IV Last administered on 10/31/16 22:20; Start 10/30/16 at 11:15; Stop 11/01/16 at 11:46; Status DC Heparin Sodium (Porcine) (Heparin Sodium) 10,000 unit STK-MED ONCE .ROUTE ; Start 10/30/16 at 11:37; Stop 10/30/16 at 11:38; Status DC Lidocaine/Sodium Bicarbonate (Buffered Lidocaine 1%) 20 ml STK-MED ONCE IJ ; Start 10/30/16 at 11:38; Stop 10/30/16 at 11:39; Status DC Heparin Sodium/ Sodium Chloride 500 ml @ As Directed STK-MED ONCE .ROUTE ; Start 10/30/16 at 11:38; Stop 10/30/16 at 11:39; Status DC Lidocaine/Sodium Bicarbonate (Buffered Lidocaine 1%) 3 ml 1X ONCE IJ Last administered on 10/30/16 12:00; Start 10/30/16 at 12:00; Stop 10/30/16 at 12:06; Status DC Heparin Sodium (Porcine) (Heparin Sodium) 2,400 unit 1X ONCE INT CAT Last administered on 10/30/16 12:00; Start 10/30/16 at 12:00; Stop 10/30/16 at 12:06; Status DC Heparin Sodium/ Sodium Chloride 60 unit 1X ONCE IV Last administered on 12:00; Start 10/30/16 at 12:00; Stop 10/30/16 at 12:06; Status DC Iohexol (Omnipaque 300 Mg/ml) 50 ml STK-MED ONCE .ROUTE ; Start 10/30/16 at 12:19 ; Stop 10/30/16 at 12:20; Status DC Iohexol (Omnipaque 300 Mg/ml) 50 ml 1X ONCE IJ Last administered on 10/30/16 12:30; Start 10/30/16 at 12:30; Stop 10/30/16 at 12:31; Status DC Info (Do NOT chart on this entry -- for MONITORING) 1 each PRN DAILY PRN MC SEE COMMENTS; Start 10/30/16 at 12:30; Stop 11/01/16 at 12:29; Status DC Sodium Chloride 1,000 ml @ 1,000 mls/hr Q1H PRN IV hypotension; Start 10/30/16 at 15:50; Stop 10/30/16 at 21:49; Status DC Albumin Human 200 ml @ 200 mls/hr 1X PRN PRN IV Hypotension Last administered on 10/30/16 19:30; Start 10/30/16 at 16:00; Stop 10/30/16 at 21:59; Status DC Diphenhydramine HCl (Benadryl) 25 mg 1X PRN PRN IV ITCHING; Start 10/30/16 at 16 :00; Stop 10/31/16 at 15:59; Status DC Diphenhydramine HCl (Benadryl) 25 mg 1X PRN PRN IV ITCHING; Start 10/30/16 at 16 :00; Stop 10/31/16 at 15:59; Status DC Sodium Chloride (Normal Saline Flush) 10 ml 1X PRN PRN IV AP catheter pack; Start 10/30/16 at 16:00; Stop 10/31/16 at 15:59; Status DC Sodium Chloride (Normal Saline Flush) 10 ml 1X PRN PRN IV REHABILITATION CONSULTANT catheter pack; Start 10/30/16 at 16:00; Stop 10/31/16 at 15:59; Status DC Info (PHARMACY MONITORING -- do not chart) 1 each PRN DAILY PRN MC SEE COMMENTS ; Start 10/30/16 at 16:00; Status Cancel Gelatin (Gelfoam Size 12-7mm) 1 each 1X STAT TP Last administered on 17:22; Start 10/30/16 at 17:22; Stop 10/30/16 at 17:25; Status DC Gelatin (Gelfoam Size 100) 1 each STK-MED ONCE .ROUTE ; Start 10/30/16 at 17:29 ; Stop 10/30/16 at 17:30; Status DC Phytonadione (Mephyton) 10 mg 1X ONCE PO Last administered on 11/01/16 11:52; Start 11/01/16 at 09:45; Stop 11/01/16 at 09:46; Status DC Desmopressin Acetate (Ddavp) 20 mcg 1X ONCE IV Last administered on 11/02/16 09:15; Start 11/02/16 at 09:15; Stop 11/02/16 at 09:16; Status DC Sodium Chloride 1,000 ml @ 1,000 mls/hr Q1H PRN IV hypotension; Start 11/02/16 at 10:09; Stop 11/02/16 at 16:08; Status DC Info (PHARMACY MONITORING -- do not chart) 1 each PRN DAILY PRN MC SEE COMMENTS ; Start 11/02/16 at 10:15; Status UNV Info (PHARMACY MONITORING -- do not chart) 1 each PRN DAILY PRN MC SEE COMMENTS ; Start 11/02/16 at 10:15 Albumin Human 100 ml @ 100 mls/hr 1X ONCE IV Last administered on 11/02/16 11 :34; Start 11/02/16 at 11:00; Stop 11/02/16 at 11:59; Status DC Albumin Human 200 ml @ 200 mls/hr 1X PRN PRN IV Hypotension Last administered on 11/02/16 11:32; Start 11/02/16 at 11:00; Stop 11/02/16 at 16:59; Status DC Albumin Human 100 ml @ 100 mls/hr 1X ONCE IV Last administered on 11/02/16 15 :23; Start 11/02/16 at 11:00; Stop 11/02/16 at 11:59; Status DC Sodium Chloride 1,000 ml @ 1,000 mls/hr Q1H PRN IV hypotension; Start 11/03/16 at 08:10; Stop 11/03/16 at 14:09; Status DC Albumin Human 200 ml @ 200 mls/hr 1X PRN PRN IV Hypotension; Start 11/03/16 at 08:15; Stop 11/03/16 at 14:14; Status DC Sodium Chloride (Normal Saline Flush) 10 ml 1X PRN PRN IV AP catheter pack; Start 11/03/16 at 08:15; Stop 11/04/16 at 08:14; Status DC Sodium Chloride (Normal Saline Flush) 10 ml 1X PRN PRN IV REHABILITATION CONSULTANT catheter pack; Start 11/03/16 at 08:15; Stop 11/04/16 at 08:14; Status DC Info (PHARMACY MONITORING -- do not chart) 1 each PRN DAILY PRN MC SEE COMMENTS ; Start 11/03/16 at 08:15; Status UNV Info (PHARMACY MONITORING -- do not chart) 1 each PRN DAILY PRN MC SEE COMMENTS ; Start 11/03/16 at 08:15; Status UNV Desmopressin Acetate (Ddavp) 20 mcg 1X ONCE SQ ; Start 11/03/16 at 10:15; Stop 11/03/16 at 10:16; Status UNV Desmopressin Acetate 20 mcg/ Sodium Chloride 55 ml @ 110 mls/hr 1X IV ; Start 11/03/16 at 11:00 Active Scripts Active Midodrine Hcl 2.5 Mg Tablet 2.5 Mg PO PRN TID PRN Reported Gluco Burst (Dextrose) 37.5 Gm Gel..gram. 37.5 Gm PO PRN Glucagon Emergency Kit (Glucagon,Human Recombinant) 1 Mg Kit 1 Mg IM PRN Ferrous Sulfate 325 Mg Tablet 1 Tab PO DAILY DURAGESIC 50mcg/hr (Fentanyl) 1 Each Patch.td72 1 Patch TD Q72H Benadryl (Diphenhydramine Hcl) 25 Mg Capsule 25 Mg PO PRN Q4HRS PRN Midodrine Hcl 5 Mg Tablet 5 Mg PO BID Sodium Bicarbonate 650 Mg Tablet 650 Mg PO BID Potassium Chloride 10 Meq Tablet.er 10 Meq PO DAILY Keflex (Cephalexin) 500 Mg Capsule 500 Mg PO QID Humalog Kwikpen (Insulin Lispro) 200 Unit/1 Ml Insuln.pen 3 Unit SQ TIDAC Famotidine 20 Mg Tablet 20 Mg PO DAILY Oxycodone Hcl 15 Mg Tablet 1 Tab PO PRN Q4HRS PRN Phoslo (Calcium Acetate) 667 Mg Capsule 2 Cap PO TIDWMEALS Allopurinol 100 Mg Tablet 1 Tab PO DAILY Oyster Shell Calcium-Vit D Tab (Calcium Carbonate/Vitamin D2) 1 Each Tablet 1 Each PO TID Acidophilus Lactobacillus (Lactobacillus Acidophilus) 1 Each Capsule 1 Each PO DAILY Acetaminophen 325 Mg Tablet 650 Mg PO PRN Q4HRS PRN Atorvastatin Calcium 10 Mg Tablet 1 Tab PO DAILY Folic Acid 1 Mg Tablet 1 Mg PO DAILY Levothyroxine Sodium 25 Mcg Tablet 75 Mcg PO DAILYAC Vitals/I & O Vital Sign - Last 24 Hours 11/03/16 11/03/16 11/03/16 11/03/16 12:35 15:00 19:00 20:00 Temp 97.7 95.2 97.7 95.2 Pulse 82 74 64 Resp 18 20 B/P (MAP) 125/86 123/94 (104) 136/95 (109) Pulse Ox 91 98 O2 Delivery Nasal Cannula Nasal Cannula Nasal Cannula O2 Flow Rate 2.0 3.0 2.0 11/03/16 11/04/16 11/04/16 11/04/16 23:00 03:00 03:15 07:00 Temp 96.2 90.7 96.0 97.7 96.2 90.7 96.0 97.7 Pulse 73 66 70 Resp 20 20 18 B/P (MAP) 109/83 (92) 122/93 (103) 140/108 (119) Pulse Ox 92 93 90 O2 Delivery Nasal Cannula Nasal Cannula Nasal Cannula O2 Flow Rate 3.0 3.0 4.0 11/04/16 08:34 Pulse 70 B/P (MAP) 140/108 Intake and Output 11/03/16 11/03/16 11/04/16 14:59 22:59 06:59 Intake Total 250 ml 250 ml 660 ml Balance 250 ml 250 ml 660 ml Problem List Problems Medical Problems: (1) Ascites Status: Acute (2) ESRD (end stage renal disease) on dialysis Status: Acute (3) SVT (supraventricular tachycardia) Status: Acute (4) Syncope Status: Acute Assessment Reaccumulating ascites; thrombocytopenia likely precludes paracentesis. From conversation with Pat, may be considering comfort care. Ethics committee opinion pending. Plan of Care: Continue current Tx, Mgmt BANDAR PACHECO MD November 04, 2016 10:33
--- NOTE | 2016-11-04 10:35 | PDOC2 ---
PALLIATIVE CARE Palliative Care Note Palliative Care Spoke with Delaney at [facility]. She is familiar with Mr. Spakrs and has had multiple meetings with patient and his family ( mother, sister, 2 brothers) Hospice Service has also visited with patient and family. Care Home staff has offered spiritual support which patient has declined. Dialysis staff has had extensive discussions with patient per Delaney. Decisions from both patient and family has always been full aggressive care including full code 1010 Spoke with patient. He is alert, calm and open to discussion States he is not afraid to . Wants to have fluid removed from his stomach. Informed that it is not safe to attempt to remove fluid because of risk of bleeding. Discussed choices for his care at this time: To allow him to peacefully and comfortably when God is calling him home vs doing chest compressions and putting him on a machine to help him breath. Informed that chest compressions could cause fractures to his ribs and more bleeding. States he understands what is being said and wants to peacefully and comfortably. Aida Ross RN and Kate CARBALLO also present during this conversation. Dr. Park and Dr. Ivan informed of this discussion. NSETOR ALANIZ November 04, 2016 10:35
[2016-11-04 10:49] VITALS: BP 129/95
--- NOTE | 2016-11-04 12:01 | PDOC ---
Renal-Progress Notes Subjective Notes Notes NONE History of Present Illness Hx of present illness NO CHANGE Vitals Vitals Vital Signs Date Time Temp Pulse Resp B/P (MAP) Pulse Ox O2 Delivery O2 Flow Rate FiO2 11/04/16 10:49 97.7 70 18 129/95 (106) 91 Nasal Cannula 4.0 97.7 Weight Weight [ ] I.O. Intake and Output Intake and Output 11/04/16 07:00 Intake Total 1160 ml Balance 1160 ml Intake Oral 1160 ml # Bowel Movements 4 Labs Labs Laboratory Tests Test 11/03/16 12:33 11/03/16 12:55 11/03/16 13:12 11/03/16 16:30 Glucose (Fingerstick) 48 mg/dL (70-99) 132 mg/dL (70-99) 84 mg/dL (70-99) White Blood Count 6.9 x10^3/uL (4.0-11.0) Red Blood Count 2.80 x10^6/uL (4.30-5.70) Hemoglobin 7.8 g/dL (13.0-17.5) Hematocrit 23.6 % (39.0-53.0) Mean Corpuscular Volume 84 fL (79-100) Mean Corpuscular Hemoglobin 28 pg (25-35) Mean Corpuscular Hemoglobin Concent 33 g/dL (31-37) Red Cell Distribution Width 17.8 % (11.5-14.5) Platelet Count 16 x10^3/uL (140-400) Neutrophils (%) (Auto) 87 % (31-73) Lymphocytes (%) (Auto) 9 % (24-48) Monocytes (%) (Auto) 3 % (0-9) Eosinophils (%) (Auto) 0 % (0-3) Basophils (%) (Auto) 1 % (0-3) Neutrophils # (Auto) 6.0 x10^3uL (1.8-7.7) Lymphocytes # (Auto) 0.6 x10^3/uL (1.0-4.8) Monocytes # (Auto) 0.2 x10^3/uL (0.0-1.1) Eosinophils # (Auto) 0.0 x10^3/uL (0.0-0.7) Basophils # (Auto) 0.0 x10^3/uL (0.0-0.2) Test 11/03/16 21:33 11/03/16 21:57 11/03/16 22:21 11/04/16 02:51 Glucose (Fingerstick) 43 mg/dL (70-99) 45 mg/dL (70-99) 75 mg/dL (70-99) 88 mg/dL (70-99) Test 11/04/16 06:11 11/04/16 07:28 11/04/16 10:30 11/04/16 10:43 Glucose (Fingerstick) 69 mg/dL (70-99) 101 mg/dL (70-99) 54 mg/dL (70-99) 50 mg/dL (70-99) Test 11/04/16 11:05 Glucose (Fingerstick) 66 mg/dL (70-99) Micro Micro Microbiology 10/25/16 Blood Culture - Final, Complete NO GROWTH AFTER 5 DAYS 10/27/16 Gram Stain - Final, Complete 10/27/16 Gram Stain - Final, Complete Review of Systems Constitutional: yes: no symptom reported, alert Ears/Nose/Throat: Yes: no symptom reported Pulmonary: Yes no symptom reported Cardiovascular: Yes no symptom reported Gastrointestional: Yes: no symptom reported Musculoskeletal: Yes: no symptom reported Psychiatric/Neurological: Yes: no symptom reported Physical Exam General Appearance: no apparent distress Skin: warm Respiratory: decreased breath sounds Heart: S1S2 Abdomen: soft, bowel sounds present, distension Genitourinary: bladder flat Extremities: pulses present Neurology: alert, Ext weakness, confused Musculoskeletal: Other Assessment Assessment IMP SEPSIS COAGULOPATHY ANEMIA LIVER CIRRHOSIS ESRD ESSENTIALLY MSOF PLAN HD TOMORROW ANTIBIOTICS SUPPORTIVE CARE COMFORT CARE WOULD BE APPROPRIATE ADRIAN PANCHAL MD November 04, 2016 12:01
[2016-11-04 13:15] LABS: BASO % 0 % (0-3); EOS % 0 % (0-3); HEMATOCRIT 23.2 % (39.0-53.0); HEMOGLOBIN 8.1 g/dL (13.0-17.5); LYMPH # 0.5 x10^3/uL (1.0-4.8); LYMPH % 6 % (24-48); MEAN CORPUSCULAR HEMOGLOBIN 29 pg (25-35); MEAN CORPUSCULAR HGB CONC 35 g/dL (31-37); MEAN CORPUSCULAR VOLUME 83 fL (79-100); MONO % 4 % (0-9); NEUT % 89 % (31-73); WHITE BLOOD COUNT 7.5 x10^3/uL (4.0-11.0)
[2016-11-04 13:20] LABS: PLATELET COUNT 13 x10^3/uL (140-400)
[2016-11-04 13:30] LABS: CALCIUM 7.3 mg/dL (8.5-10.1); CREATININE 1.8 mg/dL (0.7-1.3); GFR 47.1
[2016-11-04 14:40] VITALS: BP 122/92
--- NOTE | 2016-11-04 15:52 | PDOC2 ---
PALLIATIVE CARE Palliative Care Note Palliative Care Updated Sonia BERGERON on plan of care. Patient currently DNR/DNI. Will continue other treatments and proceed with evaluation for transfer to [facility]. NESTOR ALANIZ November 04, 2016 15:52
[2016-11-04 19:00] VITALS: BP 138/102
[2016-11-04] MEDS: ATORVASTATIN CALCIUM 10 MG TABLET. PO SCH (20:11)
[2016-11-04] MEDS: DARBEPOETIN ALFA 60 MCG/0.3 ML DISP.SYRIN. SQ SCH (20:16)
[2016-11-04 23:01] VITALS: BP 131/47
--- NOTE | 2016-11-05 14:57 | PDOC3 ---
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 critical likely due to liver disease GERD Hyperlipidemia Hypotension hypothyroidism Cirrhosis with chronic ascites , Hep C gout Cardiomyopathy prior C. diff. pressure ulcers. DNR Problems Medical Problems: (1) Ascites Status: Acute (2) ESRD (end stage renal disease) on dialysis Status: Acute (3) SVT (supraventricular tachycardia) Status: Acute (4) Syncope Status: Acute Brief Hospital Course Allergies Allergies Coded Allergies Type Severity Reaction Last Updated Verified No Known Drug Allergies 11/03/16 No Vital Signs Vital Signs Date Time Temp Pulse Resp B/P (MAP) Pulse Ox O2 Delivery O2 Flow Rate FiO2 11/04/16 23:01 97.6 70 16 131/47 (75) 87 Nasal Cannula 4.0 97.6 Lab Results Laboratory Tests Test 11/03/16 16:30 11/03/16 21:33 11/03/16 21:57 11/03/16 22:21 Glucose (Fingerstick) 84 mg/dL (70-99) 43 mg/dL (70-99) 45 mg/dL (70-99) 75 mg/dL (70-99) Test 11/04/16 02:51 11/04/16 06:11 11/04/16 07:28 11/04/16 10:30 Glucose (Fingerstick) 88 mg/dL (70-99) 69 mg/dL (70-99) 101 mg/dL (70-99) 54 mg/dL (70-99) Test 11/04/16 10:43 11/04/16 11:05 11/04/16 13:05 11/04/16 15:58 Glucose (Fingerstick) 50 mg/dL (70-99) 66 mg/dL (70-99) 68 mg/dL (70-99) White Blood Count 7.5 x10^3/uL (4.0-11.0) Red Blood Count 2.80 x10^6/uL (4.30-5.70) Hemoglobin 8.1 g/dL (13.0-17.5) Hematocrit 23.2 % (39.0-53.0) Mean Corpuscular Volume 83 fL (79-100) Mean Corpuscular Hemoglobin 29 pg (25-35) Mean Corpuscular Hemoglobin Concent 35 g/dL (31-37) Red Cell Distribution Width 18.0 % (11.5-14.5) Platelet Count 13 x10^3/uL (140-400) Neutrophils (%) (Auto) 89 % (31-73) Lymphocytes (%) (Auto) 6 % (24-48) Monocytes (%) (Auto) 4 % (0-9) Eosinophils (%) (Auto) 0 % (0-3) Basophils (%) (Auto) 0 % (0-3) Neutrophils # (Auto) 6.7 x10^3uL (1.8-7.7) Lymphocytes # (Auto) 0.5 x10^3/uL (1.0-4.8) Monocytes # (Auto) 0.3 x10^3/uL (0.0-1.1) Eosinophils # (Auto) 0.0 x10^3/uL (0.0-0.7) Basophils # (Auto) 0.0 x10^3/uL (0.0-0.2) Sodium Level 140 mmol/L (136-145) Potassium Level 4.0 mmol/L (3.5-5.1) Chloride Level 105 mmol/L (98-107) Carbon Dioxide Level 27 mmol/L (21-32) Anion Gap 8 (6-14) Blood Urea Nitrogen 31 mg/dL (8-26) Creatinine 1.8 mg/dL (0.7-1.3) Estimated GFR (Cockcroft-Gault) 47.1 Glucose Level 64 mg/dL (70-99) Calcium Level 7.3 mg/dL (8.5-10.1) Test 11/04/16 20:07 Glucose (Fingerstick) 73 mg/dL (70-99) Laboratory Tests Test 11/04/16 15:58 11/04/16 20:07 Glucose (Fingerstick) 68 mg/dL (70-99) 73 mg/dL (70-99) Brief Hospital Course Mr. Sparks is a 56 old male, ESLD, thombocytopenia mult med problems, weakness, debility, malnutrition, ulcers long hospitalization, made DNR, family aware of poor prognosis, [facility] palliative care contacts screened for LTAC, had ongoing blood loss from HD catheter bradycardia on 5.11 in AM, then resp arrest time of 0530 Discharge Information Condition at Discharge: / Scheduled Allopurinol (Allopurinol), 1 TAB PO DAILY, (Reported) Atorvastatin Calcium (Atorvastatin Calcium), 1 TAB PO DAILY, (Reported) Calcium Acetate (Phoslo), 2 CAP PO TIDWMEALS, (Reported) Calcium Carbonate/Vitamin D2 (Oyster Shell Calcium-Vit D Tab), 1 EACH PO TID, ( Reported) Cephalexin (Keflex), 500 MG PO QID, (Reported) Famotidine (Famotidine), 20 MG PO DAILY, (Reported) Fentanyl (DURAGESIC 50mcg/hr), 1 PATCH TD Q72H, (Reported) Ferrous Sulfate (Ferrous Sulfate), 1 TAB PO DAILY, (Reported) Folic Acid (Folic Acid), 1 MG PO DAILY, (Reported) Glucagon,Human Recombinant (Glucagon Emergency Kit), 1 MG IM PRN, (Reported) Insulin Lispro (Humalog Kwikpen), 3 UNIT SQ TIDAC, (Reported) Lactobacillus Acidophilus (Acidophilus Lactobacillus), 1 EACH PO DAILY, ( Reported) Levothyroxine Sodium (Levothyroxine Sodium), 75 MCG PO DAILYAC, (Reported) Midodrine Hcl (Midodrine Hcl), 5 MG PO BID, (Reported) Potassium Chloride (Potassium Chloride), 10 MEQ PO DAILY, (Reported) Sodium Bicarbonate (Sodium Bicarbonate), 650 MG PO BID, (Reported) Scheduled PRN Acetaminophen (Acetaminophen), 650 MG PO PRN Q4HRS PRN for PAIN, (Reported) Dextrose (Gluco Burst), 37.5 GM PO for hypoglycemia, (Reported) Diphenhydramine Hcl (Benadryl), 25 MG PO PRN Q4HRS PRN for ITCHING, (Reported) Midodrine Hcl (Midodrine Hcl), 2.5 MG PO PRN TID PRN for BLOOD PRESSURE Oxycodone Hcl (Oxycodone Hcl), 1 TAB PO PRN Q4HRS PRN for PAIN, (Reported) Patient Instructions Patient Instructions time <30 HECTOR CASTRO MD November 05, 2016 14:57
== END 2016-11-05 10:52 | disposition expired | DRG 871 ==
LOC: ER 15:44 → 2 SOUTH 18:55 → 1 WEST ICU 10-26 07:34 → 5 SOUTH 10-28 17:56
PROVIDERS: ADMIT Internal Medicine; ATTEND Internal Medicine
PROC: 5A1D60Z (ICD-10-PCS; 2016-10-25)
PROC: 0W9G3ZX Drainage of Peritoneal Cavity, Percutaneous Approach, Diagnostic (ICD-10-PCS; principal; 2016-10-27)
PROC: 05PYX3Z Removal of Infusion Device from Upper Vein, External Approach (ICD-10-PCS; 2016-10-27)
PROC: 02H633Z Insertion of Infusion Device into Right Atrium, Percutaneous Approach (ICD-10-PCS; 2016-10-30)
PROC: B2141ZZ Fluoroscopy of Right Heart using Low Osmolar Contrast (ICD-10-PCS; 2016-10-30)
PROC: B244ZZZ Ultrasonography of Right Heart (ICD-10-PCS; 2016-10-30)
PROC: 30233L1 Transfusion of Nonautologous Fresh Plasma into Peripheral Vein, Percutaneous Approach (ICD-10-PCS; 2016-11-01)
PROC: 30233N1 Transfusion of Nonautologous Red Blood Cells into Peripheral Vein, Percutaneous Approach (ICD-10-PCS; 2016-11-01)
PROC: 30233R1 Transfusion of Nonautologous Platelets into Peripheral Vein, Percutaneous Approach (ICD-10-PCS; 2016-11-01)
PROC: 30233K1 Transfusion of Nonautologous Frozen Plasma into Peripheral Vein, Percutaneous Approach (ICD-10-PCS; 2016-11-01)
DX: A41.9 Sepsis, unspecified organism (principal); N18.6 End stage renal disease; E43 Unspecified severe protein-calorie malnutrition; E41 Nutritional marasmus; K85.90 Acute pancreatitis without necrosis or infection, unspecified; I47.1 Supraventricular tachycardia; D68.9 Coagulation defect, unspecified; I48.92 Unspecified atrial flutter; I13.2 Hypertensive heart and chronic kidney disease with heart failure and with stage 5 chronic kidney disease, or end stage renal disease; I50.32 Chronic diastolic (congestive) heart failure; I42.9 Cardiomyopathy, unspecified; B19.20 Unspecified viral hepatitis C without hepatic coma; D69.59 Other secondary thrombocytopenia; E03.9 Hypothyroidism, unspecified; E11.22 Type 2 diabetes mellitus with diabetic chronic kidney disease; E11.649 Type 2 diabetes mellitus with hypoglycemia without coma; D63.8 Anemia in other chronic diseases classified elsewhere; E11.65 Type 2 diabetes mellitus with hyperglycemia; E78.00 Pure hypercholesterolemia, unspecified; E78.5 Hyperlipidemia, unspecified; J44.9 Chronic obstructive pulmonary disease, unspecified; K21.9 Gastro-esophageal reflux disease without esophagitis; M10.9 Gout, unspecified; R62.7 Adult failure to thrive; Z51.5 Encounter for palliative care; Z66 Do not resuscitate; K74.60 Unspecified cirrhosis of liver; I95.3 Hypotension of hemodialysis; I95.1 Orthostatic hypotension; F03.90 Unspecified dementia, unspecified severity, without behavioral disturbance, psychotic disturbance, mood disturbance, and anxiety; K72.90 Hepatic failure, unspecified without coma; L40.9 Psoriasis, unspecified; L89.90 Pressure ulcer of unspecified site, unspecified stage; M19.90 Unspecified osteoarthritis, unspecified site; Z82.49 Family history of ischemic heart disease and other diseases of the circulatory system; Z86.19 Personal history of other infectious and parasitic diseases; Z99.2 Dependence on renal dialysis; Z79.899 Other long term (current) drug therapy; Z68.23 Body mass index [BMI] 23.0-23.9, adult
CPT/HCPCS: 36415; 36556; 36589; 49083; 71010; 76604; 76937; 77001; 80048; 80053; 80069; 80076; 82140; 82533; 82550; 82728; 82947; 82962; 83010; 83605; 83735; 83880; 84132; 84484; 85007; 85027; 85049; 85384; 85610; 86850; 86900; 86901; 86920; 86927; 87040; 87070; 87071; 87075; 87205; 87641; 89050; 93005; 94250; 94760; 96361; 96374; A4215; C1729; C1769; C1892; C1894; J0295; J0610; J0881; J1160; J1815; J2543; J2597; J3490; J7040; J7042; J7060; P9016; P9017; P9035; P9046; Q9967; 99285-25